=== PATIENT | male | born 1945 | race Caucasian/White ===

== ENCOUNTER 2017-04-29 17:46 | Emergency (ER) | payer MEDICARE, SELFPAY ==
[2017-04-29 17:47] VITALS: BP 147/71; PULSE 87; RESP 14; TEMP 36.8; O2SAT 97; BMI 32.5
--- NOTE | 2017-04-29 18:57 | EKG12_ITS ---
Test Reason : EDEMA Blood Pressure : / mmHG Vent. Rate : 084 BPM Atrial Rate : 084 BPM P-R Int : 194 ms QRS Dur : 086 ms QT Int : 378 ms P-R-T Axes : 034 -28 -11 degrees QTc Int : 446 ms Normal sinus rhythm Leftward axis Confirmed by EULALIA ACEVES, АННА ([id number]), associate entertainment editor ANDREAS PARKER ([id number]) on 05/02/2017 1:10:42 PM Referred By: AMPARO Confirmed By:АННА ESTEBAN MD
[2017-04-29 19:26] LABS: Absolute Lymphocyte Count 1.12 X10^3/ul (0.83-4.51); Absolute Neutrophil Count 5.4 X10^3/uL (2.0-7.7); Basophil# 0.02 X10^3/uL; Basophil% 0.3 % (0-1); Eosinophil# 0.21 X10^3/uL; Eosinophils% 2.8 % (0-5); Hematocrit 32.6 % (40-54); Hemoglobin 10.5 g/dl (13.0-16.5); Lymphocyte # 1.12 X10^3/ul (4.0); Lymphocyte % 15.1 % (19-41); Mean Corp Hgb Conc 32.2 g/gl (32-36); Mean Corpuscular Hgb 32.9 pg (27.0-32.0); Mean Corpuscular Volume 102.2 fL (80-94); Mean Platelet Vol. 8.5 fl (6.2-12.0); Monocyte# 0.67 X10^3/uL; Neutrophil # 5.38 X10^3/uL (2.7-7.7); Neutrophil % 72.5 % (47-70); POSITIVE COUNT NO; POSITIVE DIFFERENTIAL NO; POSITIVE MORPHOLOGY NO; Platelet Count 321 K/mm3 (150-450); RBC Distribution Width CV 14.9 % (11.6-14.6); RBC Distribution Width SD 54.9 fl (35.1-43.9); Red Blood Count 3.19 M/mm3 (4.6-6.2); White Blood Count 7.4 K/mm3 (4.4-11.0)
--- NOTE | 2017-04-29 19:40 | US_ITS ---
STUDY: VENOUS DOPPLER ULTRASOUND - BILATERAL LOWER EXTREMITIES REASON FOR EXAM: Male, 71 years old. Pain and swelling TECHNIQUE: Ultrasound evaluation of the deep vein system to include du-scale imaging and compression was performed. Du-scale imaging and Doppler sonographic evaluation, including duplex spectral analysis and qualitative color flow sonography, was performed. COMPARISON: None. FINDINGS: RIGHT LEG Common Femoral Vein: Normal compression, spontaneity and augmentation. Normal color Doppler. Common Femoral Vein/Greater Saphenous Junction: Normal compression, spontaneity and augmentation. Normal color Doppler. Deep Femoral Vein: Normal compression, spontaneity and augmentation. Normal color Doppler. Superficial Femoral Proximal: Normal compression, spontaneity and augmentation. Normal color Doppler. Superficial Femoral Middle: Normal compression, spontaneity and augmentation. Normal color Doppler. Superficial Femoral Distal: Normal compression, spontaneity and augmentation. Normal color Doppler. Popliteal Vein: Normal compression, spontaneity and augmentation. Normal color Doppler. Posterior Tibial Vein: Normal compression, spontaneity and augmentation. Normal color Doppler. Peroneal Vein: Normal compression, spontaneity and augmentation. Normal color Doppler. There is subcutaneous edema in the calf. LEFT LEG Common Femoral Vein: Normal compression, spontaneity and augmentation. Normal color Doppler. Common Femoral Vein/Greater Saphenous Junction: Normal compression, spontaneity and augmentation. Normal color Doppler. Deep Femoral Vein: Normal compression, spontaneity and augmentation. Normal color Doppler. Superficial Femoral Proximal: Normal compression, spontaneity and augmentation. Normal color Doppler. Superficial Femoral Middle: Normal compression, spontaneity and augmentation. Normal color Doppler. Superficial Femoral Distal: Normal compression, spontaneity and augmentation. Normal color Doppler. Popliteal Vein: Normal compression, spontaneity and augmentation. Normal color Doppler. Posterior Tibial Vein: Normal compression, spontaneity and augmentation. Normal color Doppler. Peroneal Vein: Normal compression, spontaneity and augmentation. Normal color Doppler. There is subcutaneous edema in the calf. US/Venous Duplex Imag/Ryan Extrem IMPRESSION: Normal venous Doppler ultrasound of the bilateral lower extremities. Electronically Signed: Huy Wills, at 21:23 EST Tel , Service support ,
[2017-04-29 19:43] LABS: AST(SGOT) 29 U/L (15-37); Alanine Aminotransfer ALT/SGPT 33 U/L (16-61); Albumin, Serum 2.9 g/dL (3.2-5.0); Alkaline Phosphatase 97 U/L (45-117); Anion Gap 8 (5-15); BUN 14 mg/dL (7-18); BUN/Creat Ratio 13.5 RATIO (10-20); Bilirubin, Direct 0.09 mg/dL (0.00-0.30); Chloride 107 mmol/L (98-107); Creatinine, Serum 1.04 mg/dL (0.70-1.30); EST Glomerular Filtration Rate 74 mL/min (>60); Est Glom Filt Rate - Afr Amer 90 mL/min (>60); Estimated Creatinine Clearance 63.26 ml/min; Globulin 3.7 g/dL (2.2-4.2); Glucose 100 mg/dL (74-106); Potassium 3.9 mmol/L (3.5-5.1); Protein, Total 6.6 g/dL (6.4-8.2); Sodium Level 140 mmol/L (136-145)
[2017-04-29 19:55] LABS: BNP,B-Type NATRIURETIC PEPTIDE 20.3 pg/mL (0-100)
[2017-04-29 20:00] VITALS: BP 154/80; PULSE 79; RESP 14; O2SAT 99
--- NOTE | 2017-04-29 21:20 | ED.VISSUMM ---
- ER Visit Summary Date of Service: 04/29/17 Chief Complaint: Leg swelling History of Present Illness: The patient is a [address] Ramirez and Dr. Cornell. He reports he has had swelling of his left leg and foot for approximately 2-3 years. Over the past 3 months he has noticed that his right leg has become swollen. Reports that this got much worse last night. States that he is having pain in his legs. Describes as an aching, throbbing pain that is 9 out of 10 with elevating his legs. He is pain-free otherwise. Patient reports he was placed on 2 weeks of Lasix approximately [address] Cornell. He is not on Lasix now. Of note the patient reports he had a laminectomy 10 days ago at [facility] by Dr. Vazquez. He was hospitalized for 3 days. Reports that he did have a PE 10-12 years ago. Is not on any anticoagulants. Physical Examination: Vitals: Stable. Afebrile. General: Well-nourished and well-developed. Head: Normocephalic atraumatic. Neck: Supple, no lymphadenopathy. No JVD. Nontender. Cardiovascular: Regular rate and rhythm. No murmurs. Respiratory: No respiratory distress. Clear to auscultation bilaterally. Abdominal: Soft, nontender, nondistended, normal bowel sounds. No guarding, rebound, or peritoneal signs. Back: Midline lumbar incision is clean, dry, and intact. There is no surrounding erythema. There is appropriate postoperative tenderness to palpation. Extremities: Nontender, 3+ pitting edema of his lower extremities bilaterally. Skin: Normal color, no rash. Neurologic: Alert and oriented ?3. Cranial nerves II through XII are intact. Normal strength and sensation. Psych: Normal affect. Test Results: EKG is sinus at [address] changes. CBC is remarkable for an H&H of 10.5 and 32.6, segmented neutrophils of 73, lymphocytes of 15. Chem-7 is more for calcium of 8.0. LFTs are marked for an albumin of 2.9. Troponin is normal. PT [employer] is 20.3. Bilateral lower extremity Dopplers is performed by ultrasound showed no DVT from the popliteal vein proximally. They were unable to visualize the calf veins due to the edema. Emergency Department Course and Treatment: The patient is resting comfortably. He has refused a dose of Lasix here. Treatment Plan: Patient has an appointment to see Dr. Martinez in 3 days. He is instructed to keep this appointment and likely will require repeat venous Dopplers to ensure that he does not have a clot in the calf itself. He will be placed on Lasix 40 mg p.o. daily with the dispose 7. Instructed to follow-up with Dr. Cornell for further evaluation and treatment of his leg swelling. I did discuss than the low albumin and the high-protein diet may be helpful. Return to the emergency department for any worsening symptoms. Disposition: To home in improved and stable condition. Impression: 1. Peripheral edema. 2. Hypoalbuminemia. 3. 10 days status post laminectomy. This note was generated with [email or web address] dictation software. It may contain incorrect words, spelling, and punctuation that were not noted in review of the chart prior to signing ED Disposition - Plan for ED Patient: Disposition: Home or Assisted Living Chief Complaint: Edema Instructions: ED Leg Swelling Bilateral Prescriptions: Furosemide [Lasix] 40 mg PO DAILY #7 tablet Referrals: Simon Willams MD [Primary Care Provider] - 5-7 Days
[2017-04-29 21:30] VITALS: BP 123/74; PULSE 83; RESP 19; O2SAT 98
== END 2017-04-29 21:41 | disposition home or self-care (01) ==
PROVIDERS: Emergency Provider Emergency Medicine; Family Provider Family Medicine; PCP Family Medicine
DX: R60.0 Localized edema (principal); E88.09 Other disorders of plasma-protein metabolism, not elsewhere classified; Z98.1 Arthrodesis status; I25.10 Atherosclerotic heart disease of native coronary artery without angina pectoris; I10 Essential (primary) hypertension; E78.00 Pure hypercholesterolemia, unspecified; Z86.718 Personal history of other venous thrombosis and embolism; Z86.711 Personal history of pulmonary embolism; Z79.82 Long term (current) use of aspirin; Z79.899 Other long term (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
CPT/HCPCS: 80048; 80076; 83880; 84484; 85025; 93005; 93970; 99283; A4216

== ENCOUNTER 2017-05-16 13:00 | Outpatient (RCR) | payer MEDICARE, SELFPAY ==
[2017-05-02 13:14] VITALS: BP 140/95; PULSE 91; RESP 16; TEMP 36.8; BMI 31.0
--- NOTE | 2017-05-02 14:03 | PCM.WC.HP ---
(1) GERD (gastroesophageal reflux disease) Status: Chronic Current Visit: No Code(s): K21.9 - Gastro-esophageal reflux disease without esophagitis (2) Swelling of lower extremity Status: Chronic Current Visit: Yes Code(s): M79.89 - Other specified soft tissue disorders (3) Edema of both legs Status: Chronic Current Visit: Yes Code(s): R60.0 - Localized edema (4) History of kidney stones Status: Chronic Current Visit: No Code(s): Z87.442 - Personal history of urinary calculi (5) Atherosclerosis of [place] coronary artery of [place] heart without angina pectoris Status: Chronic Current Visit: No Code(s): I25.10 - Atherosclerotic heart disease of [place] coronary artery without angina pectoris (6) Benign essential hypertension Status: Chronic Current Visit: No Code(s): I10 - Essential (primary) hypertension (7) History of benign prostatic hypertrophy Status: Chronic Current Visit: No Code(s): Z87.438 - Personal history of other diseases of male genital organs (8) History of hyperlipidemia Status: Chronic Current Visit: No Code(s): Z86.39 - Personal history of other endocrine, nutritional and metabolic disease (9) Rheumatoid arthritis Status: Chronic Current Visit: No Code(s): M06.9 - Rheumatoid arthritis, unspecified (10) Overweight Status: Chronic Current Visit: No Code(s): E66.3 - Overweight (11) Pre-op evaluation Status: Chronic Current Visit: No Code(s): Z01.818 - Encounter for other preprocedural examination History of Present Illness Date of Service: 05/02/17 Chief Complaint: Chronic swelling and edema in the lower extremities bilaterally History of Wound: This is a 71-year-old male with a long-standing history of swelling and edema in his lower extremities bilaterally. This has been ongoing for many years. Become more severe recently. The patient has a recent history of lumbar disc disease, and underwent lumbar laminectomy at the [facility] on April 19, 2017. According to the patient, his lower extremity swelling worse late in the day. He sleeps on a flat mattress at night, though often with the head of bed elevated due to gastroesophageal reflux disease. He sits for long periods of time ideally during daytime hours. He admits to being totally inactive. He denies a history of thrombophlebitis in the past. He is undergone no prior vein procedures in the past. His primary care physician recently placed him on Lasix for diuresis purposes, which has failed to have any favorable impact in his lower extremity swelling. Patient was evaluated in the emergency department at [facility] on April 29, 2017, due to his lower extremity swelling. At that time, a venous duplex examination was negative for deep vein thrombosis bilaterally. Laboratory results were as follows: White blood count 7.4, hemoglobin 10.5, medical 32.6, it was 321,000, sodium 140, potassium 3.9, chloride 107, BUN 14, creatinine 1.04, glucose 100, calcium 8.0, AST 29, ALT 33, alkaline phosphatase 97, total protein 6.6, albumin 2.9. Past Medical History Past Medical History: Chronic Problems (Last Updated 03/17/17 @ 09:45 by Willie Ramirez NP-C) GERD (gastroesophageal reflux disease) (Chronic) Swelling of lower extremity (Chronic) Edema of both legs (Chronic) History of kidney stones (Chronic) Overweight (Chronic) Pre-op evaluation (Chronic) Atherosclerosis of [place] coronary artery of [place] heart without angina pectoris (Chronic) Benign essential hypertension (Chronic) History of benign prostatic hypertrophy (Chronic) History of hyperlipidemia (Chronic) Rheumatoid arthritis (Chronic) Past Medical History: Patient has a history of gastroesophageal reflux disease. He also suffers from hypertension and hyperlipidemia. He has a history of coronary artery disease, having previously undergone coronary artery stenting of the right coronary artery. The patient's history is negative for myocardial infarction, congestive heart failure, cerebrovascular accident, diabetes mellitus, cancer, pulmonary disease, and thyroid disease. He has a history of kidney stones. Surgical History: - - Patient has previously undergone coronary artery stenting of the right coronary artery. He is also undergone appendectomy, cholecystectomy, and bilateral total knee replacement in the past. Allergies/Adverse Reactions: Allergies Antihistamines - Ethylenediamine Adverse Reaction (Verified 04/29/17 17:50) Other HYPERACTIVITY Home Medications: Ambulatory Orders Medication Instructions Recorded Atorvastatin Calcium [Lipitor] 40 mg PO QHS 12/18/12 Enalapril Maleate [Vasotec] 5 mg PO BID 12/18/12 Omeprazole [Prilosec] 20 mg PO DAILY 12/18/12 Tamsulosin HCl [Flomax] 0.4 mg PO DAILY 09/30/13 Nitroglycerin [Nitrostat] 0.4 mg SUBLINGUAL Q5M PRN 04/09/15 Pramipexole Di-HCl [Mirapex] 2 mg PO QHS 04/09/15 metoprolol succinate ER 25 mg 25 mg PO QDAY 03/17/17 tablet,extended release 24 hr folic acid 1 mg tablet 2 mg PO QDAY tab 03/18/17 methotrexate sodium 2.5 mg tablet 6 mg PO QWEEK tab 03/18/17 modafinil 100 mg tablet 200 mg PO QDAY tab 03/18/17 tramadol 50 mg tablet 100 mg PO Q6H PRN tab 03/18/17 Aspirin 325 mg PO DAILY 04/29/17 Furosemide [Lasix] 40 mg PO DAILY #7 tablet 04/29/17 - Family History Maternal Family History: Family History (Last Updated 03/17/17 @ 09:38 by Willie Ramirez NP-C) Father CAD (coronary artery disease) Mother CAD (coronary artery disease) Breast cancer Colon cancer Diabetes Brother CAD (coronary artery disease) CVA (cerebral vascular accident) Diabetes Social History: Patient lives with his , suffers from Alzheimer's disease, and is dependent upon him. 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 Denies use of alcohol and tobacco products. Lives: Spouse/ Significant Other Smoking Status: Never smoker Tobacco Use: Non-smoker Alcohol: None Drugs: None Review of Systems Constitutional: Denies: Chills, Fever, Weight Change Eyes: Denies: Pain, Vision Change HEENT: Denies: Difficulty Hearing, Difficulty Swallowing, Sinus Congestion Cardiovascular: Denies: Chest Pain, Palpitations Respiratory: Denies: Cough, Shortness of Breath Gastrointestinal: Denies: Diarrhea, Nausea, Vomiting Genitourinary: Denies: Dysuria, Hematuria Endocrine: Denies: Heat/ Cold Intolerance, Polydipsia, Polyuria Hematologic/ Lymphatic: Denies: Easy Bruising, Easy Bleeding - Physical Exam Vital Signs Temp Pulse Resp BP 98.2 F 91 16 140/95 H 05/02/17 13:14 05/02/17 13:14 05/02/17 13:14 05/02/17 13:14 General: Alert, Oriented x3, Cooperative, No apparent distress, Well developed, Well nourished HEENT: Atraumatic, PERRLA, EOMI, Normocephalic Oral: Moist Mucosa, No Gingival or Mucosal Lesions/ Ulcerations Neck: Supple, No JVD, Negative Carotid Bruits, Negative Hepatojugular Reflux, No Nodes, No Nuchal Rigidity, Trachea Midline Lungs: Clear to auscultation, Normal air movement, No rhonchi, No wheeze, No rales Cardiovascular: Regular rate, Regular Rhythm, Normal S1, Normal S2, No murmurs Abdomen: Bowel Sounds Present, Soft, Non Tender, Non-Distended Extremities: No clubbing, No cyanosis, No Calf Tenderness, - - Moderate bilateral lower extremity swelling and edema is noted. There is no sign of infection or cellulitis. There are no open wounds or ulcerations. Circumference measurements are documented elsewhere. Skin: No rashes, No breakdown Wound Measurements and Assessment WC - Nurse 1 - General Ulcer Measurement Start: 05/02/17 12:34 Freq: Status: Active Protocol: Activity Type Activity Date Activity User E-Sign Co-Sign Detail Recorded Client Recorded Date Recorded By Document 05/02/17 13:14 [facility] [id number] 05/02/17 13:32 [facility] 05/02/17 13:14 Wound Center Nurse 1 [Ulcer Assessment Protocol: WC.WD.LOC] #1- BLE EDEMA -Combined with other wound No [Edema Assessment] -Lower Limb Edema Present Yes -Right Calf (cm) 46 -Right Ankle (cm) 28.8 -Left Calf (cm) 45.7 -Left Ankle (cm) 27.9 WC - Nurse 2 - General Ulcer CM Notes Start: 05/02/17 12:34 Freq: Status: Active Protocol: Activity Type Activity Date Activity User E-Sign Co-Sign Detail Recorded Client Recorded Date Recorded By Document 05/02/17 13:49 DV [id number] 05/02/17 13:53 DV 05/02/17 13:49 Wound Center Nurse 2 [Procedure/Treatment] #1- BLE EDEMA -Time 13:50 -Correct Patient Yes -Correct Side, Site, Position Yes -Procedure Performed No [See Physician Procedure note for Specifics] Musculoskeletal: No Muscle Wasting Neurological: Cranial nerves II-XII grossly intact, Neuro grossly intact Psych/Mental Status: Normal Affect, Appropriate, Alert and oriented to time, place, person, mood and affect Debridement Note Post-Debridement Measurements/Treatment WC - Nurse 2 - General Ulcer CM Notes Start: 05/02/17 12:34 Freq: Status: Active Protocol: Activity Type Activity Date Activity User E-Sign Co-Sign Detail Recorded Client Recorded Date Recorded By Document 05/02/17 13:49 DV [id number] 05/02/17 13:53 DV 05/02/17 13:49 Wound Center Nurse 2 #1- BLE EDEMA -Time 13:50 -Correct Patient Yes -Correct Side, Site, Position Yes -Procedure Performed No No debridement was completed today Assessment/Plan Active Problems (Last Updated 03/17/17 @ 09:45 by Willie Ramirez, ARDHA-C) Swelling of lower extremity (Chronic) Edema of both legs (Chronic) Assessment: This is a 71-year-old male who is relatively inactive. His activity has been adversely affected by aging, and symptoms related to lumbar disc disease. He has recently undergone lumbar laminectomy. His activity has been curtailed recently, concomitant to increased swelling and edema in his lower extremities. He sleeps in a somewhat upright position, with head of bed elevated, due to gastroesophageal reflux disease. He denies a history of thrombophlebitis. It appears as though the patient's lifestyle and habits account for his swelling and edema in the lower extremities. Plan: The patient and his son, who is at the bedside, have been counseled in the appropriate lifestyle measures to be implemented relative to the lower extremity swelling and edema. He has been advised to elevate his lower extremities as much as possible, even during daytime hours. Elevation is to be accomplished to heart level, or higher. He is to avoid idle standing and sitting. Activity has been encouraged, such as walking, biking, swimming, jogging, etc. The benefits of activity have been thoroughly explained, including the recruitment of calf and foot muscle pumps. We are to obtain an ankle-brachial index bilaterally, to determine the degree of compression which would be appropriate to implement in the lower extremities on a daily basis. It is anticipated that we will start with compression wraps, such as SurePress or 3M 2 layer compression wraps, and will ultimately transition to the use of graduated compression stockings of at least 20-30 mmHg compression. Control of patient's weight has also been recommended. Patient will return weekly and his progress will be documented serially. Patient stands 5 feet 9 inches tall. He weighs 210 pounds. His BMI is 31, which places him in the overweight category. Weight loss has been recommended, and the patient has been advised to collaborate with his primary care physician in this regard. The patient is not a smoker. Influenza vaccine was not administered today. The left ankle pressure was unobtainable due to the noncompressibility of the vasculature. The right ankle-brachial index was 1.05. Because of the patient's recent lumbar surgery, and limitations in flexibility, we will start using 3M 2 layer compression wraps which will be changed twice weekly.
--- NOTE | 2017-05-02 14:14 | HP.PCM_ITS ---
(1) GERD (gastroesophageal reflux disease) Status: Chronic Current Visit: No Code(s): K21.9 - Gastro-esophageal reflux disease without esophagitis (2) Swelling of lower extremity Status: Chronic Current Visit: Yes Code(s): M79.89 - Other specified soft tissue disorders (3) Edema of both legs Status: Chronic Current Visit: Yes Code(s): R60.0 - Localized edema (4) History of kidney stones Status: Chronic Current Visit: No Code(s): Z87.442 - Personal history of urinary calculi (5) Atherosclerosis of [place] coronary artery of [place] heart without angina pectoris Status: Chronic Current Visit: No Code(s): I25.10 - Atherosclerotic heart disease of [place] coronary artery without angina pectoris (6) Benign essential hypertension Status: Chronic Current Visit: No Code(s): I10 - Essential (primary) hypertension (7) History of benign prostatic hypertrophy Status: Chronic Current Visit: No Code(s): Z87.438 - Personal history of other diseases of male genital organs (8) History of hyperlipidemia Status: Chronic Current Visit: No Code(s): Z86.39 - Personal history of other endocrine, nutritional and metabolic disease (9) Rheumatoid arthritis Status: Chronic Current Visit: No Code(s): M06.9 - Rheumatoid arthritis, unspecified (10) Overweight Status: Chronic Current Visit: No Code(s): E66.3 - Overweight (11) Pre-op evaluation Status: Chronic Current Visit: No Code(s): Z01.818 - Encounter for other preprocedural examination History of Present Illness Date of Service: 05/02/17 Chief Complaint: Chronic swelling and edema in the lower extremities bilaterally History of Wound: This is a 71-year-old male with a long-standing history of swelling and edema in his lower extremities bilaterally. This has been ongoing for many years. Become more severe recently. The patient has a recent history of lumbar disc disease, and underwent lumbar laminectomy at the [facility] on April 19, 2017. According to the patient, his lower extremity swelling worse late in the day. He sleeps on a flat mattress at night, though often with the head of bed elevated due to gastroesophageal reflux disease. He sits for long periods of time ideally during daytime hours. He admits to being totally inactive. He denies a history of thrombophlebitis in the past. He is undergone no prior vein procedures in the past. His primary care physician recently placed him on Lasix for diuresis purposes, which has failed to have any favorable impact in his lower extremity swelling. Patient was evaluated in the emergency department at [facility] on April 29, 2017, due to his lower extremity swelling. At that time, a venous duplex examination was negative for deep vein thrombosis bilaterally. Laboratory results were as follows: White blood count 7.4, hemoglobin 10.5, medical 32.6, it was 321,000, sodium 140, potassium 3.9, chloride 107, BUN 14, creatinine 1.04, glucose 100, calcium 8.0, AST 29, ALT 33, alkaline phosphatase 97, total protein 6.6, albumin 2.9. Past Medical History Past Medical History: Chronic Problems (Last Updated 03/17/17 @ 09:45 by Willie Ramirez NP-C) GERD (gastroesophageal reflux disease) (Chronic) Swelling of lower extremity (Chronic) Edema of both legs (Chronic) History of kidney stones (Chronic) Overweight (Chronic) Pre-op evaluation (Chronic) Atherosclerosis of [place] coronary artery of [place] heart without angina pectoris (Chronic) Benign essential hypertension (Chronic) History of benign prostatic hypertrophy (Chronic) History of hyperlipidemia (Chronic) Rheumatoid arthritis (Chronic) Past Medical History: Patient has a history of gastroesophageal reflux disease. He also suffers from hypertension and hyperlipidemia. He has a history of coronary artery disease, having previously undergone coronary artery stenting of the right coronary artery. The patient's history is negative for myocardial infarction, congestive heart failure, cerebrovascular accident, diabetes mellitus, cancer, pulmonary disease, and thyroid disease. He has a history of kidney stones. Surgical History: - - Patient has previously undergone coronary artery stenting of the right coronary artery. He is also undergone appendectomy, cholecystectomy, and bilateral total knee replacement in the past. Allergies/Adverse Reactions: Allergies Antihistamines - Ethylenediamine Adverse Reaction (Verified 04/29/17 17:50) Other HYPERACTIVITY Home Medications: Ambulatory Orders Medication Instructions Recorded Atorvastatin Calcium [Lipitor] 40 mg PO QHS 12/18/12 Enalapril Maleate [Vasotec] 5 mg PO BID 12/18/12 Omeprazole [Prilosec] 20 mg PO DAILY 12/18/12 Tamsulosin HCl [Flomax] 0.4 mg PO DAILY 09/30/13 Nitroglycerin [Nitrostat] 0.4 mg SUBLINGUAL Q5M PRN 04/09/15 Pramipexole Di-HCl [Mirapex] 2 mg PO QHS 04/09/15 metoprolol succinate ER 25 mg 25 mg PO QDAY 03/17/17 tablet,extended release 24 hr folic acid 1 mg tablet 2 mg PO QDAY tab 03/18/17 methotrexate sodium 2.5 mg tablet 6 mg PO QWEEK tab 03/18/17 modafinil 100 mg tablet 200 mg PO QDAY tab 03/18/17 tramadol 50 mg tablet 100 mg PO Q6H PRN tab 03/18/17 Aspirin 325 mg PO DAILY 04/29/17 Furosemide [Lasix] 40 mg PO DAILY #7 tablet 04/29/17 - Family History Maternal Family History: Family History (Last Updated 03/17/17 @ 09:38 by Wlilie Ramirez NP-C) Father CAD (coronary artery disease) Mother CAD (coronary artery disease) Breast cancer Colon cancer Diabetes Brother CAD (coronary artery disease) CVA (cerebral vascular accident) Diabetes Social History: Patient lives with his , suffers from Alzheimer's disease, and is dependent upon him. 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 Denies use of alcohol and tobacco products. Lives: Spouse/ Significant Other Smoking Status: Never smoker Tobacco Use: Non-smoker Alcohol: None Drugs: None Review of Systems Constitutional: Denies: Chills, Fever, Weight Change Eyes: Denies: Pain, Vision Change HEENT: Denies: Difficulty Hearing, Difficulty Swallowing, Sinus Congestion Cardiovascular: Denies: Chest Pain, Palpitations Respiratory: Denies: Cough, Shortness of Breath Gastrointestinal: Denies: Diarrhea, Nausea, Vomiting Genitourinary: Denies: Dysuria, Hematuria Endocrine: Denies: Heat/ Cold Intolerance, Polydipsia, Polyuria Hematologic/ Lymphatic: Denies: Easy Bruising, Easy Bleeding - Physical Exam Vital Signs Temp Pulse Resp BP 98.2 F 91 16 140/95 H 05/02/17 13:14 05/02/17 13:14 05/02/17 13:14 05/02/17 13:14 General: Alert, Oriented x3, Cooperative, No apparent distress, Well developed, Well nourished HEENT: Atraumatic, PERRLA, EOMI, Normocephalic Oral: Moist Mucosa, No Gingival or Mucosal Lesions/ Ulcerations Neck: Supple, No JVD, Negative Carotid Bruits, Negative Hepatojugular Reflux, No Nodes, No Nuchal Rigidity, Trachea Midline Lungs: Clear to auscultation, Normal air movement, No rhonchi, No wheeze, No rales Cardiovascular: Regular rate, Regular Rhythm, Normal S1, Normal S2, No murmurs Abdomen: Bowel Sounds Present, Soft, Non Tender, Non-Distended Extremities: No clubbing, No cyanosis, No Calf Tenderness, - - Moderate bilateral lower extremity swelling and edema is noted. There is no sign of infection or cellulitis. There are no open wounds or ulcerations. Circumference measurements are documented elsewhere. Skin: No rashes, No breakdown Wound Measurements and Assessment WC - Nurse 1 - General Ulcer Measurement Start: 05/02/17 12:34 Freq: Status: Active Protocol: Activity Type Activity Date Activity User E-Sign Co-Sign Detail Recorded Client Recorded Date Recorded By Document 05/02/17 13:14 [facility] [id number] 05/02/17 13:32 [facility] 05/02/17 13:14 Wound Center Nurse 1 [Ulcer Assessment Protocol: WC.WD.LOC] #1- BLE EDEMA -Combined with other wound No [Edema Assessment] -Lower Limb Edema Present Yes -Right Calf (cm) 46 -Right Ankle (cm) 28.8 -Left Calf (cm) 45.7 -Left Ankle (cm) 27.9 WC - Nurse 2 - General Ulcer CM Notes Start: 05/02/17 12:34 Freq: Status: Active Protocol: Activity Type Activity Date Activity User E-Sign Co-Sign Detail Recorded Client Recorded Date Recorded By Document 05/02/17 13:49 DV [id number] 05/02/17 13:53 DV 05/02/17 13:49 Wound Center Nurse 2 [Procedure/Treatment] #1- BLE EDEMA -Time 13:50 -Correct Patient Yes -Correct Side, Site, Position Yes -Procedure Performed No [See Physician Procedure note for Specifics] Musculoskeletal: No Muscle Wasting Neurological: Cranial nerves II-XII grossly intact, Neuro grossly intact Psych/Mental Status: Normal Affect, Appropriate, Alert and oriented to time, place, person, mood and affect Debridement Note Post-Debridement Measurements/Treatment WC - Nurse 2 - General Ulcer CM Notes Start: 05/02/17 12:34 Freq: Status: Active Protocol: Activity Type Activity Date Activity User E-Sign Co-Sign Detail Recorded Client Recorded Date Recorded By Document 05/02/17 13:49 DV [id number] 05/02/17 13:53 DV 05/02/17 13:49 Wound Center Nurse 2 #1- BLE EDEMA -Time 13:50 -Correct Patient Yes -Correct Side, Site, Position Yes -Procedure Performed No No debridement was completed today Assessment/Plan Active Problems (Last Updated 03/17/17 @ 09:45 by Willie Ramirez, RADHA-C) Swelling of lower extremity (Chronic) Edema of both legs (Chronic) Assessment: This is a 71-year-old male who is relatively inactive. His activity has been adversely affected by aging, and symptoms related to lumbar disc disease. He has recently undergone lumbar laminectomy. His activity has been curtailed recently, concomitant to increased swelling and edema in his lower extremities. He sleeps in a somewhat upright position, with head of bed elevated, due to gastroesophageal reflux disease. He denies a history of thrombophlebitis. It appears as though the patient's lifestyle and habits account for his swelling and edema in the lower extremities. Plan: The patient and his son, who is at the bedside, have been counseled in the appropriate lifestyle measures to be implemented relative to the lower extremity swelling and edema. He has been advised to elevate his lower extremities as much as possible, even during daytime hours. Elevation is to be accomplished to heart level, or higher. He is to avoid idle standing and sitting. Activity has been encouraged, such as walking, biking, swimming, jogging, etc. The benefits of activity have been thoroughly explained, including the recruitment of calf and foot muscle pumps. We are to obtain an ankle-brachial index bilaterally, to determine the degree of compression which would be appropriate to implement in the lower extremities on a daily basis. It is anticipated that we will start with compression wraps, such as SurePress or 3M 2 layer compression wraps, and will ultimately transition to the use of graduated compression stockings of at least 20-30 mmHg compression. Control of patient's weight has also been recommended. Patient will return weekly and his progress will be documented serially. Patient stands 5 feet 9 inches tall. He weighs 210 pounds. His BMI is 31, which places him in the overweight category. Weight loss has been recommended, and the patient has been advised to collaborate with his primary care physician in this regard. The patient is not a smoker. Influenza vaccine was not administered today. The left ankle pressure was unobtainable due to the noncompressibility of the vasculature. The right ankle-brachial index was 1.05. Because of the patient's recent lumbar surgery, and limitations in flexibility, we will start using 3M 2 layer compression wraps which will be changed twice weekly.
--- NOTE | 2017-05-02 14:23 | PCM.WC.HP ---
(1) GERD (gastroesophageal reflux disease) Status: Chronic Current Visit: No Code(s): K21.9 - Gastro-esophageal reflux disease without esophagitis (2) Swelling of lower extremity Status: Chronic Current Visit: Yes Code(s): M79.89 - Other specified soft tissue disorders (3) Edema of both legs Status: Chronic Current Visit: Yes Code(s): R60.0 - Localized edema (4) History of kidney stones Status: Chronic Current Visit: No Code(s): Z87.442 - Personal history of urinary calculi (5) Atherosclerosis of [place] coronary artery of [place] heart without angina pectoris Status: Chronic Current Visit: No Code(s): I25.10 - Atherosclerotic heart disease of [place] coronary artery without angina pectoris (6) Benign essential hypertension Status: Chronic Current Visit: No Code(s): I10 - Essential (primary) hypertension (7) History of benign prostatic hypertrophy Status: Chronic Current Visit: No Code(s): Z87.438 - Personal history of other diseases of male genital organs (8) History of hyperlipidemia Status: Chronic Current Visit: No Code(s): Z86.39 - Personal history of other endocrine, nutritional and metabolic disease (9) Rheumatoid arthritis Status: Chronic Current Visit: No Code(s): M06.9 - Rheumatoid arthritis, unspecified (10) Overweight Status: Chronic Current Visit: No Code(s): E66.3 - Overweight (11) Pre-op evaluation Status: Chronic Current Visit: No Code(s): Z01.818 - Encounter for other preprocedural examination History of Present Illness Date of Service: 05/02/17 Chief Complaint: Chronic swelling and edema in the lower extremities bilaterally History of Wound: This is a 71-year-old male with a long-standing history of swelling and edema in his lower extremities bilaterally. This has been ongoing for many years. Become more severe recently. The patient has a recent history of lumbar disc disease, and underwent lumbar laminectomy at the [facility] on April 19, 2017. According to the patient, his lower extremity swelling worse late in the day. He sleeps on a flat mattress at night, though often with the head of bed elevated due to gastroesophageal reflux disease. He sits for long periods of time ideally during daytime hours. He admits to being totally inactive. He denies a history of thrombophlebitis in the past. He is undergone no prior vein procedures in the past. His primary care physician recently placed him on Lasix for diuresis purposes, which has failed to have any favorable impact in his lower extremity swelling. Patient was evaluated in the emergency department at [facility] on April 29, 2017, due to his lower extremity swelling. At that time, a venous duplex examination was negative for deep vein thrombosis bilaterally. Laboratory results were as follows: White blood count 7.4, hemoglobin 10.5, medical 32.6, it was 321,000, sodium 140, potassium 3.9, chloride 107, BUN 14, creatinine 1.04, glucose 100, calcium 8.0, AST 29, ALT 33, alkaline phosphatase 97, total protein 6.6, albumin 2.9. Past Medical History Past Medical History: Chronic Problems (Last Updated 03/17/17 @ 09:45 by Willie Ramirez NP-C) GERD (gastroesophageal reflux disease) (Chronic) Swelling of lower extremity (Chronic) Edema of both legs (Chronic) History of kidney stones (Chronic) Overweight (Chronic) Pre-op evaluation (Chronic) Atherosclerosis of [place] coronary artery of [place] heart without angina pectoris (Chronic) Benign essential hypertension (Chronic) History of benign prostatic hypertrophy (Chronic) History of hyperlipidemia (Chronic) Rheumatoid arthritis (Chronic) Surgical History: - - Patient has previously undergone coronary artery stenting of the right coronary artery. He is also undergone appendectomy, cholecystectomy, and bilateral total knee replacement in the past. Allergies/Adverse Reactions: Allergies Antihistamines - Ethylenediamine Adverse Reaction (Verified 04/29/17 17:50) Other HYPERACTIVITY Home Medications: Ambulatory Orders Medication Instructions Recorded Atorvastatin Calcium [Lipitor] 40 mg PO QHS 12/18/12 Enalapril Maleate [Vasotec] 5 mg PO BID 12/18/12 Omeprazole [Prilosec] 20 mg PO DAILY 12/18/12 Tamsulosin HCl [Flomax] 0.4 mg PO DAILY 12/18/12 Nitroglycerin [Nitrostat] 0.4 mg SUBLINGUAL Q5M PRN 04/09/15 Pramipexole Di-HCl [Mirapex] 2 mg PO QHS 04/09/15 metoprolol succinate ER 25 mg 25 mg PO QDAY 03/17/17 tablet,extended release 24 hr folic acid 1 mg tablet 2 mg PO QDAY tab 03/18/17 methotrexate sodium 2.5 mg tablet 6 mg PO QWEEK tab 03/18/17 modafinil 100 mg tablet 200 mg PO QDAY tab 03/18/17 tramadol 50 mg tablet 100 mg PO Q6H PRN tab 03/18/17 Aspirin 325 mg PO DAILY 04/29/17 Furosemide [Lasix] 40 mg PO DAILY #7 tablet 04/29/17 - Family History Maternal Family History: Family History (Last Updated 03/17/17 @ 09:38 by MARYCHUY Faria) Father CAD (coronary artery disease) Mother CAD (coronary artery disease) Breast cancer Colon cancer Diabetes Brother CAD (coronary artery disease) CVA (cerebral vascular accident) Diabetes Lives: Spouse/ Significant Other Smoking Status: Never smoker Tobacco Use: Non-smoker Alcohol: None Drugs: None - Physical Exam Vital Signs Temp Pulse Resp BP 98.2 F 91 16 140/95 H 05/02/17 13:14 05/02/17 13:14 05/02/17 13:14 05/02/17 13:14 Wound Measurements and Assessment - Nurse 1 - General Ulcer Measurement Start: 05/02/17 12:34 Freq: Status: Active Protocol: Activity Type Activity Date Activity User E-Sign Co-Sign Detail Recorded Client Recorded Date Recorded By Document 05/02/17 13:14 BM [id number] 05/02/17 13:32 [facility] 05/02/17 13:14 Wound Center Nurse 1 [Ulcer Assessment Protocol: WC.WD.LOC] #1- BLE EDEMA -Combined with other wound No [Edema Assessment] -Lower Limb Edema Present Yes -Right Calf (cm) 46 -Right Ankle (cm) 28.8 -Left Calf (cm) 45.7 -Left Ankle (cm) 27.9 - Nurse 2 - General Ulcer CM Notes Start: 05/02/17 12:34 Freq: Status: Active Protocol: Activity Type Activity Date Activity User E-Sign Co-Sign Detail Recorded Client Recorded Date Recorded By Document 05/02/17 13:49 DV [id number] 05/02/17 13:53 DV 05/02/17 13:49 Wound Center Nurse 2 [Procedure/Treatment] #1- BLE EDEMA -Time 13:50 -Correct Patient Yes -Correct Side, Site, Position Yes -Procedure Performed No [See Physician Procedure note for Specifics] Debridement Note Post-Debridement Measurements/Treatment WC - Nurse 2 - General Ulcer CM Notes Start: 05/02/17 12:34 Freq: Status: Active Protocol: Activity Type Activity Date Activity User E-Sign Co-Sign Detail Recorded Client Recorded Date Recorded By Document 05/02/17 13:49 DV [id number] 05/02/17 13:53 DV 05/02/17 13:49 Wound Center Nurse 2 #1- BLE EDEMA -Time 13:50 -Correct Patient Yes -Correct Side, Site, Position Yes -Procedure Performed No Assessment/Plan Active Problems (Last Updated 03/17/17 @ 09:45 by Willie Ramirez, RADHA-C) Swelling of lower extremity (Chronic) Edema of both legs (Chronic) Assessment: This is a 71-year-old male who is relatively inactive. His activity has been adversely affected by aging, and symptoms related to lumbar disc disease. He has recently undergone lumbar laminectomy. His activity has been curtailed recently, concomitant to increased swelling and edema in his lower extremities. He sleeps in a somewhat upright position, with head of bed elevated, due to gastroesophageal reflux disease. He denies a history of thrombophlebitis. It appears as though the patient's lifestyle and habits account for his swelling and edema in the lower extremities. Plan: The patient and his son, who is at the bedside, have been counseled in the appropriate lifestyle measures to be implemented relative to the lower extremity swelling and edema. He has been advised to elevate his lower extremities as much as possible, even during daytime hours. Elevation is to be accomplished to heart level, or higher. He is to avoid idle standing and sitting. Activity has been encouraged, such as walking, biking, swimming, jogging, etc. The benefits of activity have been thoroughly explained, including the recruitment of calf and foot muscle pumps. We are to obtain an ankle-brachial index bilaterally, to determine the degree of compression which would be appropriate to implement in the lower extremities on a daily basis. It is anticipated that we will start with compression wraps, such as SurePress or 3M 2 layer compression wraps, and will ultimately transition to the use of graduated compression stockings of at least 20-30 mmHg compression. Control of patient's weight has also been recommended. Patient will return weekly and his progress will be documented serially. Patient stands 5 feet 9 inches tall. He weighs 210 pounds. His BMI is 31, which places him in the overweight category. Weight loss has been recommended, and the patient has been advised to collaborate with his primary care physician in this regard. The patient is not a smoker. Influenza vaccine was not administered today. The left ankle pressure was unobtainable due to the noncompressibility of the vasculature. The right ankle-brachial index was 1.05. Because of the patient's recent lumbar surgery, and limitations in flexibility, we will start using 3M 2 layer compression wraps which will be changed twice weekly. Will obtain a venous duplex examination to assess patency and competence in the deep and superficial venous systems bilaterally.
--- NOTE | 2017-05-05 13:05 | VDLE_ITS ---
Reason For Study: swelling, edema RIGHT LEFT CFV is compressible, spontaneous, phasic, CFV is compressible, spontaneous, phasic, competent and demonstrates normal competent, and demonstrates normal augmentation. augmentation. FV is compressible, spontaneous, phasic, FV is compressible, spontaneous, phasic, competent and demonstrates normal competent and demonstrates normal augmentation. augmentation. POP V is compressible, spontaneous, phasic, POP V is compressible, spontaneous, phasic, competent and demonstrates normal competent and demonstrates normal augmentation. augmentation. T/P Trunk is compressible. T/P Trunk is compressible. PTV is compressible. PTV is compressible. RT PerV is compressible. LT PerV is compressible. S-F Junction is incompetent for greater S-F Junction is incompetent for greater than .5 seconds. than .5 seconds. GSV is incompetent throughout for greater GSV is incompetent throughout for greater than .5 seconds. GSV measures .370 x .407 than .5 seconds. GSV measures .289 x .318 cm. cm. ASV at the knee is incompetent for greater ASV at the knee is incompetent for greater than .5 seconds. ASV measures .308 x .316 than .5 seconds. ASV measures .229 x .224 cm. cm. SSV is competent. SSV is competent. Procedure Exam performed in department. The exam was diagnostic. Interpretation Summary Deep veins of the lower extremities are bilaterally patent and compressible segmentally. There is no evidence of deep vein thrombosis on either side. Valvular competence appears intact within the proximal deep venous systems bilaterally. The greater saphenous veins appear bilaterally patent and compressible segmentally. Sapheno-femoral junctions are bilaterally incompetent . Segmental valvular incompetence is noted within the greater saphenous veins bilaterally. Small saphenous veins are patent and competent bilaterally. An incompetent accessory saphenous vein is identified at knee level in the lower extremities bilaterally. Ordering Physician: Matthew Martinez Performed By: Tim Pike RVT
[2017-05-05 14:09] VITALS: BP 150/80; PULSE 85; RESP 18; TEMP 36.9; BMI 31.0
[2017-05-09 12:24] VITALS: BP 144/79; PULSE 90; RESP 16; TEMP 36.5; BMI 31.0
--- NOTE | 2017-05-09 13:10 | PCM.WC.HP ---
(1) GERD (gastroesophageal reflux disease) Status: Chronic Current Visit: No Code(s): K21.9 - Gastro-esophageal reflux disease without esophagitis (2) Swelling of lower extremity Status: Chronic Current Visit: Yes Code(s): M79.89 - Other specified soft tissue disorders (3) Edema of both legs Status: Chronic Current Visit: Yes Code(s): R60.0 - Localized edema (4) History of kidney stones Status: Chronic Current Visit: No Code(s): Z87.442 - Personal history of urinary calculi (5) Atherosclerosis of [place] coronary artery of [place] heart without angina pectoris Status: Chronic Current Visit: No Code(s): I25.10 - Atherosclerotic heart disease of [place] coronary artery without angina pectoris (6) Benign essential hypertension Status: Chronic Current Visit: No Code(s): I10 - Essential (primary) hypertension (7) History of benign prostatic hypertrophy Status: Chronic Current Visit: No Code(s): Z87.438 - Personal history of other diseases of male genital organs (8) History of hyperlipidemia Status: Chronic Current Visit: No Code(s): Z86.39 - Personal history of other endocrine, nutritional and metabolic disease (9) Rheumatoid arthritis Status: Chronic Current Visit: No Code(s): M06.9 - Rheumatoid arthritis, unspecified (10) Overweight Status: Chronic Current Visit: No Code(s): E66.3 - Overweight (11) Pre-op evaluation Status: Chronic Current Visit: No Code(s): Z01.818 - Encounter for other preprocedural examination History of Present Illness Date of Service: 05/09/17 Chief Complaint: Chronic swelling and edema in the lower extremities bilaterally History of Wound: This is a 71-year-old male with a long-standing history of swelling and edema in his lower extremities bilaterally. This has been ongoing for many years. Become more severe recently. The patient has a recent history of lumbar disc disease, and underwent lumbar laminectomy at the [facility] on April 19, 2017. According to the patient, his lower extremity swelling worse late in the day. He sleeps on a flat mattress at night, though often with the head of bed elevated due to gastroesophageal reflux disease. He sits for long periods of time ideally during daytime hours. He admits to being totally inactive. He denies a history of thrombophlebitis in the past. He is undergone no prior vein procedures in the past. His primary care physician recently placed him on Lasix for diuresis purposes, which has failed to have any favorable impact in his lower extremity swelling. Patient was evaluated in the emergency department at [facility] on April 29, 2017, due to his lower extremity swelling. At that time, a venous duplex examination was negative for deep vein thrombosis bilaterally. Laboratory results were as follows: White blood count 7.4, hemoglobin 10.5, medical 32.6, it was 321,000, sodium 140, potassium 3.9, chloride 107, BUN 14, creatinine 1.04, glucose 100, calcium 8.0, AST 29, ALT 33, alkaline phosphatase 97, total protein 6.6, albumin 2.9. Since patient's initial visit, there has been significant improvement. We have implemented the use of compression to the lower extremities by means of 3M 2 layer compression wrap, change twice weekly. Patient has also been modifying his daily routine, elevating his legs even during daytime hours. He has also been advised to avoid prolonged vital sitting. Past Medical History Past Medical History: Chronic Problems (Last Updated 03/17/17 @ 09:45 by Willie Ramirez NP-C) GERD (gastroesophageal reflux disease) (Chronic) Swelling of lower extremity (Chronic) Edema of both legs (Chronic) History of kidney stones (Chronic) Overweight (Chronic) Pre-op evaluation (Chronic) Atherosclerosis of [place] coronary artery of [place] heart without angina pectoris (Chronic) Benign essential hypertension (Chronic) History of benign prostatic hypertrophy (Chronic) History of hyperlipidemia (Chronic) Rheumatoid arthritis (Chronic) Surgical History: - - Patient has previously undergone coronary artery stenting of the right coronary artery. He is also undergone appendectomy, cholecystectomy, and bilateral total knee replacement in the past. Allergies/Adverse Reactions: Allergies Antihistamines - Ethylenediamine Adverse Reaction (Verified 04/29/17 17:50) Other HYPERACTIVITY Home Medications: Ambulatory Orders Medication Instructions Recorded Atorvastatin Calcium [Lipitor] 40 mg PO QHS 12/18/12 Enalapril Maleate [Vasotec] 5 mg PO BID 12/18/12 Omeprazole [Prilosec] 20 mg PO DAILY 12/18/12 Tamsulosin HCl [Flomax] 0.4 mg PO DAILY 12/18/12 Nitroglycerin [Nitrostat] 0.4 mg SUBLINGUAL Q5M PRN 04/09/15 Pramipexole Di-HCl [Mirapex] 2 mg PO QHS 04/09/15 metoprolol succinate ER 25 mg 25 mg PO QDAY 03/17/17 tablet,extended release 24 hr folic acid 1 mg tablet 2 mg PO QDAY tab 03/18/17 methotrexate sodium 2.5 mg tablet 6 mg PO QWEEK tab 03/18/17 modafinil 100 mg tablet 200 mg PO QDAY tab 03/18/17 tramadol 50 mg tablet 100 mg PO Q6H PRN tab 03/18/17 Aspirin 325 mg PO DAILY 04/29/17 Furosemide [Lasix] 40 mg PO DAILY #7 tablet 04/29/17 - Family History Maternal Family History: Family History (Last Updated 03/17/17 @ 09:38 by Willie Ramirez STEM CRUSHER-C) Father CAD (coronary artery disease) Mother CAD (coronary artery disease) Breast cancer Colon cancer Diabetes Brother CAD (coronary artery disease) CVA (cerebral vascular accident) Diabetes Lives: Spouse/ Significant Other Smoking Status: Never smoker Tobacco Use: Non-smoker Alcohol: None Drugs: None Review of Systems Constitutional: Denies: Chills, Fever, Weight Change Eyes: Denies: Pain, Vision Change HEENT: Denies: Difficulty Hearing, Difficulty Swallowing, Sinus Congestion Cardiovascular: Denies: Chest Pain, Palpitations Respiratory: Denies: Cough, Shortness of Breath Gastrointestinal: Denies: Diarrhea, Nausea, Vomiting Genitourinary: Denies: Dysuria, Hematuria Endocrine: Denies: Heat/ Cold Intolerance, Polydipsia, Polyuria Hematologic/ Lymphatic: Denies: Easy Bruising, Easy Bleeding - Physical Exam Vital Signs Temp Pulse Resp BP 97.7 F L 90 16 144/79 H 05/09/17 12:24 05/09/17 12:24 05/09/17 12:24 05/09/17 12:24 General: Alert, Oriented x3, Cooperative, No apparent distress, Well developed, Well nourished HEENT: Atraumatic, PERRLA, EOMI, Normocephalic Oral: Moist Mucosa Neck: No JVD Lungs: Normal air movement Abdomen: Non-Distended Extremities: No clubbing, No cyanosis, No Calf Tenderness, - - The swelling and edema in the patient's lower extremities is much improved. Circumference measurements are documented elsewhere, and are less than previously noted. There are no significant skin changes in the lower extremities. There are no open wounds or ulcerations. There is no sign of infection or cellulitis. Skin: No rashes, No breakdown Wound Measurements and Assessment WC - Nurse 1 - General Ulcer Measurement Start: 05/02/17 12:34 Freq: Status: Active Protocol: Activity Type Activity Date Activity User E-Sign Co-Sign Detail Recorded Client Recorded Date Recorded By Document 05/09/17 12:24 [facility] [id number] 05/09/17 12:38 [facility] 05/09/17 12:24 Wound Center Nurse 1 [Edema Assessment] -Lower Limb Edema Present Yes -Right Calf (cm) 38.5 -Right Ankle (cm) 24.7 -Left Calf (cm) 38.9 -Left Ankle (cm) 24.9 WC - Nurse 2 - General Ulcer CM Notes Start: 05/02/17 12:34 Freq: Status: Active Protocol: Activity Type Activity Date Activity User E-Sign Co-Sign Detail Recorded Client Recorded Date Recorded By Document 05/09/17 12:48 [id number] 05/09/17 12:48 05/09/17 12:48 Wound Center Nurse 2 [Procedure/Treatment] #1- BLE EDEMA -Time 12:48 -Correct Patient Yes -Correct Side, Site, Position Yes -Correct Procedure Yes -Procedure Performed No -Wound/Ulcer Outcome Not Healed -Ulcer Cleansing Rinsed/ Irrigated with Saline -Foul Odor after Cleansing No -Bioengineered Tissue No -Bleeding Controlled with NA [See Physician Procedure note for Specifics] Pain Scale: 0-10 Numeric [Pain] -Is Patient Pain Free? Yes Neurological: Cranial nerves II-XII grossly intact, Neuro grossly intact Psych/Mental Status: Normal Affect, Appropriate, Alert and oriented to time, place, person, mood and affect Debridement Note Post-Debridement Measurements/Treatment WC - Nurse 2 - General Ulcer CM Notes Start: 05/02/17 12:34 Freq: Status: Active Protocol: Activity Type Activity Date Activity User E-Sign Co-Sign Detail Recorded Client Recorded Date Recorded By Document 05/02/17 13:49 DV [id number] 05/02/17 13:53 DV Document 05/09/17 12:48 [id number] 05/09/17 12:48 05/02/17 05/09/17 13:49 12:48 Wound Center Nurse 2 #1- BLE EDEMA -Time 13:50 12:48 -Correct Patient Yes Yes -Correct Side, Site, Position Yes Yes -Correct Procedure Yes -Procedure Performed No No -Wound/Ulcer Outcome Not Healed -Ulcer Cleansing Rinsed/ Irrigated with Saline -Foul Odor after Cleansing No -Bioengineered Tissue No -Bleeding Controlled with NA Pain Scale: 0-10 Numeric Is Patient Pain Free? Yes No debridement was completed today Assessment/Plan Active Problems (Last Updated 03/17/17 @ 09:45 by Willie Ramirez NP-C) Swelling of lower extremity (Chronic) Edema of both legs (Chronic) Assessment: This is a 71-year-old male who is relatively inactive. His activity has been adversely affected by aging, and symptoms related to lumbar disc disease. He has recently undergone lumbar laminectomy. His activity has been curtailed recently, concomitant to increased swelling and edema in his lower extremities. He sleeps in a somewhat upright position, with head of bed elevated, due to gastroesophageal reflux disease. He denies a history of thrombophlebitis. It appears as though the patient's lifestyle and habits account for his swelling and edema in the lower extremities. There has been significant improvement with the implementation of conservative treatment measures thus far. 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 An accessory saphenous vein is also incompetent in each lower extremity. Plan: The patient and his son, who is at the bedside, have been counseled in the appropriate lifestyle measures to be implemented relative to the lower extremity swelling and edema. He has been advised to elevate his lower extremities as much as possible, even during daytime hours. Elevation is to be accomplished to heart level, or higher. He is to avoid idle standing and sitting. Activity has been encouraged, such as walking, biking, swimming, jogging, etc. The benefits of activity have been thoroughly explained, including the recruitment of calf and foot muscle pumps. We are to continue 3M 2 layer compression wraps, and will ultimately transition to the use of graduated compression stockings of at least 20-30 mmHg compression. Control of patient's weight has also been recommended. Patient will return weekly and his progress will be documented serially. It is anticipated of conservative treatment measures will suffice to achieve control of his lower extremity swelling and edema. Patient stands 5 feet 9 inches tall. He weighs 210 pounds. His BMI is 31, which places him in the overweight category. Weight loss has been recommended, and the patient has been advised to collaborate with his primary care physician in this regard. The patient is not a smoker. Influenza vaccine was not administered today. The left ankle pressure was unobtainable due to the noncompressibility of the vasculature. The right ankle-brachial index was 1.05. Because of the patient's recent lumbar surgery, and limitations in flexibility, we will continue using 3M 2 layer compression wraps which will be changed twice weekly. Patient is to start physical therapy soon, which will increase his level of activity following his recent back surgery, which will help to recruit the lower extremity muscle pumps, and assist in venous return.
--- NOTE | 2017-05-09 13:18 | HP.PCM_ITS ---
(1) GERD (gastroesophageal reflux disease) Status: Chronic Current Visit: No Code(s): K21.9 - Gastro-esophageal reflux disease without esophagitis (2) Swelling of lower extremity Status: Chronic Current Visit: Yes Code(s): M79.89 - Other specified soft tissue disorders (3) Edema of both legs Status: Chronic Current Visit: Yes Code(s): R60.0 - Localized edema (4) History of kidney stones Status: Chronic Current Visit: No Code(s): Z87.442 - Personal history of urinary calculi (5) Atherosclerosis of [place] coronary artery of [place] heart without angina pectoris Status: Chronic Current Visit: No Code(s): I25.10 - Atherosclerotic heart disease of [place] coronary artery without angina pectoris (6) Benign essential hypertension Status: Chronic Current Visit: No Code(s): I10 - Essential (primary) hypertension (7) History of benign prostatic hypertrophy Status: Chronic Current Visit: No Code(s): Z87.438 - Personal history of other diseases of male genital organs (8) History of hyperlipidemia Status: Chronic Current Visit: No Code(s): Z86.39 - Personal history of other endocrine, nutritional and metabolic disease (9) Rheumatoid arthritis Status: Chronic Current Visit: No Code(s): M06.9 - Rheumatoid arthritis, unspecified (10) Overweight Status: Chronic Current Visit: No Code(s): E66.3 - Overweight (11) Pre-op evaluation Status: Chronic Current Visit: No Code(s): Z01.818 - Encounter for other preprocedural examination History of Present Illness Date of Service: 05/09/17 Chief Complaint: Chronic swelling and edema in the lower extremities bilaterally History of Wound: This is a 71-year-old male with a long-standing history of swelling and edema in his lower extremities bilaterally. This has been ongoing for many years. Become more severe recently. The patient has a recent history of lumbar disc disease, and underwent lumbar laminectomy at the [facility] on April 19, 2017. According to the patient, his lower extremity swelling worse late in the day. He sleeps on a flat mattress at night, though often with the head of bed elevated due to gastroesophageal reflux disease. He sits for long periods of time ideally during daytime hours. He admits to being totally inactive. He denies a history of thrombophlebitis in the past. He is undergone no prior vein procedures in the past. His primary care physician recently placed him on Lasix for diuresis purposes, which has failed to have any favorable impact in his lower extremity swelling. Patient was evaluated in the emergency department at [facility] on April 29, 2017, due to his lower extremity swelling. At that time, a venous duplex examination was negative for deep vein thrombosis bilaterally. Laboratory results were as follows: White blood count 7.4, hemoglobin 10.5, medical 32.6, it was 321,000, sodium 140, potassium 3.9, chloride 107, BUN 14, creatinine 1.04, glucose 100, calcium 8.0, AST 29, ALT 33, alkaline phosphatase 97, total protein 6.6, albumin 2.9. Since patient's initial visit, there has been significant improvement. We have implemented the use of compression to the lower extremities by means of 3M 2 layer compression wrap, change twice weekly. Patient has also been modifying his daily routine, elevating his legs even during daytime hours. He has also been advised to avoid prolonged vital sitting. Past Medical History Past Medical History: Chronic Problems (Last Updated 03/17/17 @ 09:45 by Willie Ramirez NP-C) GERD (gastroesophageal reflux disease) (Chronic) Swelling of lower extremity (Chronic) Edema of both legs (Chronic) History of kidney stones (Chronic) Overweight (Chronic) Pre-op evaluation (Chronic) Atherosclerosis of [place] coronary artery of [place] heart without angina pectoris (Chronic) Benign essential hypertension (Chronic) History of benign prostatic hypertrophy (Chronic) History of hyperlipidemia (Chronic) Rheumatoid arthritis (Chronic) Surgical History: - - Patient has previously undergone coronary artery stenting of the right coronary artery. He is also undergone appendectomy, cholecystectomy, and bilateral total knee replacement in the past. Allergies/Adverse Reactions: Allergies Antihistamines - Ethylenediamine Adverse Reaction (Verified 04/29/17 17:50) Other HYPERACTIVITY Home Medications: Ambulatory Orders Medication Instructions Recorded Atorvastatin Calcium [Lipitor] 40 mg PO QHS 12/18/12 Enalapril Maleate [Vasotec] 5 mg PO BID 12/18/12 Omeprazole [Prilosec] 20 mg PO DAILY 12/18/12 Tamsulosin HCl [Flomax] 0.4 mg PO DAILY 12/18/12 Nitroglycerin [Nitrostat] 0.4 mg SUBLINGUAL Q5M PRN 04/09/15 Pramipexole Di-HCl [Mirapex] 2 mg PO QHS 04/09/15 metoprolol succinate ER 25 mg 25 mg PO QDAY 03/17/17 tablet,extended release 24 hr folic acid 1 mg tablet 2 mg PO QDAY tab 03/18/17 methotrexate sodium 2.5 mg tablet 6 mg PO QWEEK tab 03/18/17 modafinil 100 mg tablet 200 mg PO QDAY tab 03/18/17 tramadol 50 mg tablet 100 mg PO Q6H PRN tab 03/18/17 Aspirin 325 mg PO DAILY 04/29/17 Furosemide [Lasix] 40 mg PO DAILY #7 tablet 04/29/17 - Family History Maternal Family History: Family History (Last Updated 03/17/17 @ 09:38 by Willie Ramirez CHECKER/STOCKER-C) Father CAD (coronary artery disease) Mother CAD (coronary artery disease) Breast cancer Colon cancer Diabetes Brother CAD (coronary artery disease) CVA (cerebral vascular accident) Diabetes Lives: Spouse/ Significant Other Smoking Status: Never smoker Tobacco Use: Non-smoker Alcohol: None Drugs: None Review of Systems Constitutional: Denies: Chills, Fever, Weight Change Eyes: Denies: Pain, Vision Change HEENT: Denies: Difficulty Hearing, Difficulty Swallowing, Sinus Congestion Cardiovascular: Denies: Chest Pain, Palpitations Respiratory: Denies: Cough, Shortness of Breath Gastrointestinal: Denies: Diarrhea, Nausea, Vomiting Genitourinary: Denies: Dysuria, Hematuria Endocrine: Denies: Heat/ Cold Intolerance, Polydipsia, Polyuria Hematologic/ Lymphatic: Denies: Easy Bruising, Easy Bleeding - Physical Exam Vital Signs Temp Pulse Resp BP 97.7 F L 90 16 144/79 H 05/09/17 12:24 05/09/17 12:24 05/09/17 12:24 05/09/17 12:24 General: Alert, Oriented x3, Cooperative, No apparent distress, Well developed, Well nourished HEENT: Atraumatic, PERRLA, EOMI, Normocephalic Oral: Moist Mucosa Neck: No JVD Lungs: Normal air movement Abdomen: Non-Distended Extremities: No clubbing, No cyanosis, No Calf Tenderness, - - The swelling and edema in the patient's lower extremities is much improved. Circumference measurements are documented elsewhere, and are less than previously noted. There are no significant skin changes in the lower extremities. There are no open wounds or ulcerations. There is no sign of infection or cellulitis. Skin: No rashes, No breakdown Wound Measurements and Assessment WC - Nurse 1 - General Ulcer Measurement Start: 05/02/17 12:34 Freq: Status: Active Protocol: Activity Type Activity Date Activity User E-Sign Co-Sign Detail Recorded Client Recorded Date Recorded By Document 05/09/17 12:24 [facility] [id number] 05/09/17 12:38 [facility] 05/09/17 12:24 Wound Center Nurse 1 [Edema Assessment] -Lower Limb Edema Present Yes -Right Calf (cm) 38.5 -Right Ankle (cm) 24.7 -Left Calf (cm) 38.9 -Left Ankle (cm) 24.9 WC - Nurse 2 - General Ulcer CM Notes Start: 05/02/17 12:34 Freq: Status: Active Protocol: Activity Type Activity Date Activity User E-Sign Co-Sign Detail Recorded Client Recorded Date Recorded By Document 05/09/17 12:48 [id number] 05/09/17 12:48 05/09/17 12:48 Wound Center Nurse 2 [Procedure/Treatment] #1- BLE EDEMA -Time 12:48 -Correct Patient Yes -Correct Side, Site, Position Yes -Correct Procedure Yes -Procedure Performed No -Wound/Ulcer Outcome Not Healed -Ulcer Cleansing Rinsed/ Irrigated with Saline -Foul Odor after Cleansing No -Bioengineered Tissue No -Bleeding Controlled with NA [See Physician Procedure note for Specifics] Pain Scale: 0-10 Numeric [Pain] -Is Patient Pain Free? Yes Neurological: Cranial nerves II-XII grossly intact, Neuro grossly intact Psych/Mental Status: Normal Affect, Appropriate, Alert and oriented to time, place, person, mood and affect Debridement Note Post-Debridement Measurements/Treatment WC - Nurse 2 - General Ulcer CM Notes Start: 05/02/17 12:34 Freq: Status: Active Protocol: Activity Type Activity Date Activity User E-Sign Co-Sign Detail Recorded Client Recorded Date Recorded By Document 05/02/17 13:49 DV [id number] 05/02/17 13:53 DV Document 05/09/17 12:48 [id number] 05/09/17 12:48 05/02/17 05/09/17 13:49 12:48 Wound Center Nurse 2 #1- BLE EDEMA -Time 13:50 12:48 -Correct Patient Yes Yes -Correct Side, Site, Position Yes Yes -Correct Procedure Yes -Procedure Performed No No -Wound/Ulcer Outcome Not Healed -Ulcer Cleansing Rinsed/ Irrigated with Saline -Foul Odor after Cleansing No -Bioengineered Tissue No -Bleeding Controlled with NA Pain Scale: 0-10 Numeric Is Patient Pain Free? Yes No debridement was completed today Assessment/Plan Active Problems (Last Updated 03/17/17 @ 09:45 by Willie Ramirez NP-C) Swelling of lower extremity (Chronic) Edema of both legs (Chronic) Assessment: This is a 71-year-old male who is relatively inactive. His activity has been adversely affected by aging, and symptoms related to lumbar disc disease. He has recently undergone lumbar laminectomy. His activity has been curtailed recently, concomitant to increased swelling and edema in his lower extremities. He sleeps in a somewhat upright position, with head of bed elevated, due to gastroesophageal reflux disease. He denies a history of thrombophlebitis. It appears as though the patient's lifestyle and habits account for his swelling and edema in the lower extremities. There has been significant improvement with the implementation of conservative treatment measures thus far. 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 An accessory saphenous vein is also incompetent in each lower extremity. Plan: The patient and his son, who is at the bedside, have been counseled in the appropriate lifestyle measures to be implemented relative to the lower extremity swelling and edema. He has been advised to elevate his lower extremities as much as possible, even during daytime hours. Elevation is to be accomplished to heart level, or higher. He is to avoid idle standing and sitting. Activity has been encouraged, such as walking, biking, swimming, jogging, etc. The benefits of activity have been thoroughly explained, including the recruitment of calf and foot muscle pumps. We are to continue 3M 2 layer compression wraps, and will ultimately transition to the use of graduated compression stockings of at least 20-30 mmHg compression. Control of patient's weight has also been recommended. Patient will return weekly and his progress will be documented serially. It is anticipated of conservative treatment measures will suffice to achieve control of his lower extremity swelling and edema. Patient stands 5 feet 9 inches tall. He weighs 210 pounds. His BMI is 31, which places him in the overweight category. Weight loss has been recommended, and the patient has been advised to collaborate with his primary care physician in this regard. The patient is not a smoker. Influenza vaccine was not administered today. The left ankle pressure was unobtainable due to the noncompressibility of the vasculature. The right ankle- brachial index was 1.05. Because of the patient's recent lumbar surgery, and limitations in flexibility, we will continue using 3M 2 layer compression wraps which will be changed twice weekly. Patient is to start physical therapy soon, which will increase his level of activity following his recent back surgery, which will help to recruit the lower extremity muscle pumps, and assist in venous return.
[2017-05-12 12:54] VITALS: BP 151/80; PULSE 80; RESP 18; TEMP 35.6; BMI 31.0
[2017-05-16 12:59] VITALS: RESP 16; TEMP 37.1; BMI 31.0
--- NOTE | 2017-05-16 14:27 | PCM.WC.HP ---
(1) GERD (gastroesophageal reflux disease) Status: Chronic Current Visit: No Code(s): K21.9 - Gastro-esophageal reflux disease without esophagitis (2) Swelling of lower extremity Status: Chronic Current Visit: Yes Code(s): M79.89 - Other specified soft tissue disorders (3) Edema of both legs Status: Chronic Current Visit: Yes Code(s): R60.0 - Localized edema (4) History of kidney stones Status: Chronic Current Visit: No Code(s): Z87.442 - Personal history of urinary calculi (5) Atherosclerosis of [place] coronary artery of [place] heart without angina pectoris Status: Chronic Current Visit: No Code(s): I25.10 - Atherosclerotic heart disease of [place] coronary artery without angina pectoris (6) Benign essential hypertension Status: Chronic Current Visit: No Code(s): I10 - Essential (primary) hypertension (7) History of benign prostatic hypertrophy Status: Chronic Current Visit: No Code(s): Z87.438 - Personal history of other diseases of male genital organs (8) History of hyperlipidemia Status: Chronic Current Visit: No Code(s): Z86.39 - Personal history of other endocrine, nutritional and metabolic disease (9) Rheumatoid arthritis Status: Chronic Current Visit: No Code(s): M06.9 - Rheumatoid arthritis, unspecified (10) Overweight Status: Chronic Current Visit: No Code(s): E66.3 - Overweight (11) Pre-op evaluation Status: Chronic Current Visit: No Code(s): Z01.818 - Encounter for other preprocedural examination History of Present Illness Date of Service: 05/16/17 Chief Complaint: Chronic swelling and edema in the lower extremities bilaterally History of Wound: This is a 71-year-old male with a long-standing history of swelling and edema in his lower extremities bilaterally. This has been ongoing for many years. It has become more severe recently. The patient has a recent history of lumbar disc disease, and underwent lumbar laminectomy at the [facility] on April 19, 2017. According to the patient, his lower extremity swelling is worse late in the day. He sleeps on a flat mattress at night, though often with the head of bed elevated due to gastroesophageal reflux disease. He sits for long periods of time idlely during daytime hours. He admits to being relatively inactive. He denies a history of thrombophlebitis in the past. He has undergone no prior vein procedures in the past. His primary care physician recently placed him on Lasix for diuresis purposes, which has failed to have any favorable impact in his lower extremity swelling. Patient was evaluated in the emergency department at [facility] on April 29, 2017, due to his lower extremity swelling. At that time, a venous duplex examination was negative for deep vein thrombosis bilaterally. Laboratory results were as follows: White blood count 7.4, hemoglobin 10.5, medical 32.6, it was 321,000, sodium 140, potassium 3.9, chloride 107, BUN 14, creatinine 1.04, glucose 100, calcium 8.0, AST 29, ALT 33, alkaline phosphatase 97, total protein 6.6, albumin 2.9. Since patient's initial visit, there has been significant improvement. We have implemented the use of compression to the lower extremities by means of 3M 2 layer compression wrap, changed twice weekly. Patient has also been modifying his daily routine, elevating his legs even during daytime hours. He has also been advised to avoid prolonged idle sitting. Result, there has been significant improvement in the swelling and edema in the patient's lower extremities, as noted today. Past Medical History Past Medical History: Chronic Problems (Last Updated 03/17/17 @ 09:45 by OPAL FariaC) GERD (gastroesophageal reflux disease) (Chronic) Swelling of lower extremity (Chronic) Edema of both legs (Chronic) History of kidney stones (Chronic) Overweight (Chronic) Pre-op evaluation (Chronic) Atherosclerosis of [place] coronary artery of [place] heart without angina pectoris (Chronic) Benign essential hypertension (Chronic) History of benign prostatic hypertrophy (Chronic) History of hyperlipidemia (Chronic) Rheumatoid arthritis (Chronic) Surgical History: - - Patient has previously undergone coronary artery stenting of the right coronary artery. He is also undergone appendectomy, cholecystectomy, and bilateral total knee replacement in the past. Allergies/Adverse Reactions: Allergies Antihistamines - Ethylenediamine Adverse Reaction (Verified 04/29/17 17:50) Other HYPERACTIVITY Home Medications: Ambulatory Orders Medication Instructions Recorded Atorvastatin Calcium [Lipitor] 40 mg PO QHS 12/18/12 Enalapril Maleate [Vasotec] 5 mg PO BID 12/18/12 Omeprazole [Prilosec] 20 mg PO DAILY 12/18/12 Tamsulosin HCl [Flomax] 0.4 mg PO DAILY 12/18/12 Nitroglycerin [Nitrostat] 0.4 mg SUBLINGUAL Q5M PRN 04/09/15 Pramipexole Di-HCl [Mirapex] 2 mg PO QHS 04/09/15 metoprolol succinate ER 25 mg 25 mg PO QDAY 03/17/17 tablet,extended release 24 hr folic acid 1 mg tablet 2 mg PO QDAY tab 03/18/17 methotrexate sodium 2.5 mg tablet 6 mg PO QWEEK tab 03/18/17 modafinil 100 mg tablet 200 mg PO QDAY tab 03/18/17 tramadol 50 mg tablet 100 mg PO Q6H PRN tab 03/18/17 Aspirin 325 mg PO DAILY 04/29/17 Furosemide [Lasix] 40 mg PO DAILY #7 tablet 04/29/17 - Family History Maternal Family History: Family History (Last Updated 03/17/17 @ 09:38 by Willie Ramirez [employer]-C) Father CAD (coronary artery disease) Mother CAD (coronary artery disease) Breast cancer Colon cancer Diabetes Brother CAD (coronary artery disease) CVA (cerebral vascular accident) Diabetes Lives: Spouse/ Significant Other Smoking Status: Never smoker Tobacco Use: Non-smoker Alcohol: None Drugs: None Review of Systems Constitutional: Denies: Chills, Fever, Weight Change Eyes: Denies: Pain, Vision Change HEENT: Denies: Difficulty Hearing, Difficulty Swallowing, Sinus Congestion Cardiovascular: Denies: Chest Pain, Palpitations Respiratory: Denies: Cough, Shortness of Breath Gastrointestinal: Denies: Diarrhea, Nausea, Vomiting Genitourinary: Denies: Dysuria, Hematuria Endocrine: Denies: Heat/ Cold Intolerance, Polydipsia, Polyuria Hematologic/ Lymphatic: Denies: Easy Bruising, Easy Bleeding - Physical Exam Vital Signs Temp Pulse Resp BP 98.7 F 80 16 151/80 H 05/16/17 12:59 05/12/17 12:54 05/16/17 12:59 05/12/17 12:54 General: Alert, Oriented x3, Cooperative, No apparent distress, Well developed, Well nourished HEENT: Atraumatic, PERRLA, EOMI, Normocephalic Oral: Moist Mucosa Neck: No JVD Lungs: Normal air movement Abdomen: Non-Distended Extremities: No clubbing, No cyanosis, No Calf Tenderness, - - The swelling and edema in the patient's lower extremities has been minimized. Dimensions are documented elsewhere. There is marketed improvement. There are no significant skin changes. There are no wounds or ulcerations. Skin: No rashes, No breakdown Wound Measurements and Assessment WC - Nurse 1 - General Ulcer Measurement Start: 05/02/17 12:34 Freq: Status: Active Protocol: Activity Type Activity Date Activity User E-Sign Co-Sign Detail Recorded Client Recorded Date Recorded By Document 05/16/17 12:59 [facility] [id number] 05/16/17 13:12 [facility] 05/16/17 12:59 Wound Center Nurse 1 [Edema Assessment] -Lower Limb Edema Present Yes -Right Calf (cm) 38.5 -Right Ankle (cm) 22.4 -Left Calf (cm) 37 -Left Ankle (cm) 24.8 WC - Nurse 2 - General Ulcer CM Notes Start: 05/02/17 12:34 Freq: Status: Active Protocol: Activity Type Activity Date Activity User E-Sign Co-Sign Detail Recorded Client Recorded Date Recorded By Document 05/16/17 14:22 [id number] 05/16/17 14:23 05/16/17 14:22 Wound Center Nurse 2 [Procedure/Treatment] #1- BLE EDEMA -Time 14:22 -Correct Patient Yes -Correct Side, Site, Position Yes -Correct Procedure Yes -Procedure Performed No -Wound/Ulcer Outcome Healed- Epithelialized -Bleeding Controlled with NA -Treatment Response Procedure Tolerated Well [See Physician Procedure note for Specifics] Pain Scale: 0-10 Numeric [Pain] -Is Patient Pain Free? Yes Neurological: Cranial nerves II-XII grossly intact, Neuro grossly intact Psych/Mental Status: Normal Affect, Appropriate, Alert and oriented to time, place, person, mood and affect Debridement Note Post-Debridement Measurements/Treatment WC - Nurse 2 - General Ulcer CM Notes Start: 05/02/17 12:34 Freq: Status: Active Protocol: Activity Type Activity Date Activity User E-Sign Co-Sign Detail Recorded Client Recorded Date Recorded By Document 05/02/17 13:49 DV [id number] 05/02/17 13:53 DV Document 05/09/17 12:48 JS [id number] 05/09/17 12:48 JS Document 05/16/17 14:22 [id number] 05/16/17 14:23 05/02/17 05/09/17 05/16/17 13:49 12:48 14:22 Wound Center Nurse 2 #1- BLE EDEMA -Time 13:50 12:48 14:22 -Correct Patient Yes Yes Yes -Correct Side, Site, Position Yes Yes Yes -Correct Procedure Yes Yes -Procedure Performed No No No -Wound/Ulcer Outcome Not Healed Healed- Epithelialized -Ulcer Cleansing Rinsed/ Irrigated with Saline -Foul Odor after Cleansing No -Bioengineered Tissue No -Bleeding Controlled with NA NA -Treatment Response Procedure Tolerated Well Pain Scale: 0-10 Numeric Is Patient Pain Free? Yes Yes No debridement was completed today Assessment/Plan Active Problems (Last Updated 03/17/17 @ 09:45 by Willie Ramirez NP-C) Swelling of lower extremity (Chronic) Edema of both legs (Chronic) Assessment: This is a 71-year-old male who is relatively inactive. His activity has been adversely affected by aging, and symptoms related to lumbar disc disease. He has recently undergone lumbar laminectomy. His activity has been curtailed recently, concomitant to increased swelling and edema in his lower extremities. He sleeps in a somewhat upright position, with head of bed elevated, due to gastroesophageal reflux disease. He denies a history of thrombophlebitis. It appears as though the patient's lifestyle and habits account for his swelling and edema in the lower extremities. There has been significant improvement with the implementation of conservative treatment measures thus far. 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 An accessory saphenous vein is also incompetent in each lower extremity. Plan: The patient has been counseled in the appropriate lifestyle measures to be implemented relative to the lower extremity swelling and edema. He has been advised to elevate his lower extremities as much as possible, even during daytime hours. Elevation is to be accomplished to heart level, or higher. He is to avoid idle standing and sitting. Activity has been encouraged, such as walking, biking, swimming, jogging, etc. The benefits of activity have been thoroughly explained, including the recruitment of calf and foot muscle pumps. We are to continue 3M 2 layer compression wraps, but have prescribed graduated compression stockings of 20-30 mmHg compression, knee-high length. The patient is to obtain the stockings within the next several days. He will follow-up on an outpatient basis in approximately 2 weeks for reassessment. If he continues to do well, it is likely that he will be discharged and followed-up thereafter on an as needed basis. Control of patient's weight has also been recommended. Patient stands 5 feet 9 inches tall. He weighs 210 pounds. His BMI is 31, which places him in the overweight category. Weight loss has been recommended, and the patient has been advised to collaborate with his primary care physician in this regard. The patient is not a smoker. Influenza vaccine was not administered today. Patient has started physical therapy, which will increase his level of activity following his recent back surgery, which will help to recruit the lower extremity muscle pumps, and assist in venous return.
--- NOTE | 2017-05-16 14:34 | HP.PCM_ITS ---
(1) GERD (gastroesophageal reflux disease) Status: Chronic Current Visit: No Code(s): K21.9 - Gastro-esophageal reflux disease without esophagitis (2) Swelling of lower extremity Status: Chronic Current Visit: Yes Code(s): M79.89 - Other specified soft tissue disorders (3) Edema of both legs Status: Chronic Current Visit: Yes Code(s): R60.0 - Localized edema (4) History of kidney stones Status: Chronic Current Visit: No Code(s): Z87.442 - Personal history of urinary calculi (5) Atherosclerosis of [place] coronary artery of [place] heart without angina pectoris Status: Chronic Current Visit: No Code(s): I25.10 - Atherosclerotic heart disease of [place] coronary artery without angina pectoris (6) Benign essential hypertension Status: Chronic Current Visit: No Code(s): I10 - Essential (primary) hypertension (7) History of benign prostatic hypertrophy Status: Chronic Current Visit: No Code(s): Z87.438 - Personal history of other diseases of male genital organs (8) History of hyperlipidemia Status: Chronic Current Visit: No Code(s): Z86.39 - Personal history of other endocrine, nutritional and metabolic disease (9) Rheumatoid arthritis Status: Chronic Current Visit: No Code(s): M06.9 - Rheumatoid arthritis, unspecified (10) Overweight Status: Chronic Current Visit: No Code(s): E66.3 - Overweight (11) Pre-op evaluation Status: Chronic Current Visit: No Code(s): Z01.818 - Encounter for other preprocedural examination History of Present Illness Date of Service: 05/16/17 Chief Complaint: Chronic swelling and edema in the lower extremities bilaterally History of Wound: This is a 71-year-old male with a long-standing history of swelling and edema in his lower extremities bilaterally. This has been ongoing for many years. It has become more severe recently. The patient has a recent history of lumbar disc disease, and underwent lumbar laminectomy at the [facility] on April 19, 2017. According to the patient, his lower extremity swelling is worse late in the day. He sleeps on a flat mattress at night, though often with the head of bed elevated due to gastroesophageal reflux disease. He sits for long periods of time idlely during daytime hours. He admits to being relatively inactive. He denies a history of thrombophlebitis in the past. He has undergone no prior vein procedures in the past. His primary care physician recently placed him on Lasix for diuresis purposes, which has failed to have any favorable impact in his lower extremity swelling. Patient was evaluated in the emergency department at [facility] on April 29, 2017, due to his lower extremity swelling. At that time, a venous duplex examination was negative for deep vein thrombosis bilaterally. Laboratory results were as follows: White blood count 7.4, hemoglobin 10.5, medical 32.6, it was 321,000, sodium 140, potassium 3.9, chloride 107, BUN 14, creatinine 1.04, glucose 100, calcium 8.0, AST 29, ALT 33, alkaline phosphatase 97, total protein 6.6, albumin 2.9. Since patient's initial visit, there has been significant improvement. We have implemented the use of compression to the lower extremities by means of 3M 2 layer compression wrap, changed twice weekly. Patient has also been modifying his daily routine, elevating his legs even during daytime hours. He has also been advised to avoid prolonged idle sitting. Result, there has been significant improvement in the swelling and edema in the patient's lower extremities, as noted today. Past Medical History Past Medical History: Chronic Problems (Last Updated 03/17/17 @ 09:45 by OPAL FariaC) GERD (gastroesophageal reflux disease) (Chronic) Swelling of lower extremity (Chronic) Edema of both legs (Chronic) History of kidney stones (Chronic) Overweight (Chronic) Pre-op evaluation (Chronic) Atherosclerosis [place] coronary artery of [place] heart without angina pectoris (Chronic) Benign essential hypertension (Chronic) History of benign prostatic hypertrophy (Chronic) History of hyperlipidemia (Chronic) Rheumatoid arthritis (Chronic) Surgical History: - - Patient has previously undergone coronary artery stenting of the right coronary artery. He is also undergone appendectomy, cholecystectomy, and bilateral total knee replacement in the past. Allergies/Adverse Reactions: Allergies Antihistamines - Ethylenediamine Adverse Reaction (Verified 04/29/17 17:50) Other HYPERACTIVITY Home Medications: Ambulatory Orders Medication Instructions Recorded Atorvastatin Calcium [Lipitor] 40 mg PO QHS 12/18/12 Enalapril Maleate [Vasotec] 5 mg PO BID 12/18/12 Omeprazole [Prilosec] 20 mg PO DAILY 12/18/12 Tamsulosin HCl [Flomax] 0.4 mg PO DAILY 12/18/12 Nitroglycerin [Nitrostat] 0.4 mg SUBLINGUAL Q5M PRN 04/09/15 Pramipexole Di-HCl [Mirapex] 2 mg PO QHS 04/09/15 metoprolol succinate ER 25 mg 25 mg PO QDAY 03/17/17 tablet,extended release 24 hr folic acid 1 mg tablet 2 mg PO QDAY tab 03/18/17 methotrexate sodium 2.5 mg tablet 6 mg PO QWEEK tab 03/18/17 modafinil 100 mg tablet 200 mg PO QDAY tab 03/18/17 tramadol 50 mg tablet 100 mg PO Q6H PRN tab 03/18/17 Aspirin 325 mg PO DAILY 04/29/17 Furosemide [Lasix] 40 mg PO DAILY #7 tablet 04/29/17 - Family History Maternal Family History: Family History (Last Updated 03/17/17 @ 09:38 by Willie Ramirez [employer]-C) Father CAD (coronary artery disease) Mother CAD (coronary artery disease) Breast cancer Colon cancer Diabetes Brother CAD (coronary artery disease) CVA (cerebral vascular accident) Diabetes Lives: Spouse/ Significant Other Smoking Status: Never smoker Tobacco Use: Non-smoker Alcohol: None Drugs: None Review of Systems Constitutional: Denies: Chills, Fever, Weight Change Eyes: Denies: Pain, Vision Change HEENT: Denies: Difficulty Hearing, Difficulty Swallowing, Sinus Congestion Cardiovascular: Denies: Chest Pain, Palpitations Respiratory: Denies: Cough, Shortness of Breath Gastrointestinal: Denies: Diarrhea, Nausea, Vomiting Genitourinary: Denies: Dysuria, Hematuria Endocrine: Denies: Heat/ Cold Intolerance, Polydipsia, Polyuria Hematologic/ Lymphatic: Denies: Easy Bruising, Easy Bleeding - Physical Exam Vital Signs Temp Pulse Resp BP 98.7 F 80 16 151/80 H 05/16/17 12:59 05/12/17 12:54 05/16/17 12:59 05/12/17 12:54 General: Alert, Oriented x3, Cooperative, No apparent distress, Well developed, Well nourished HEENT: Atraumatic, PERRLA, EOMI, Normocephalic Oral: Moist Mucosa Neck: No JVD Lungs: Normal air movement Abdomen: Non-Distended Extremities: No clubbing, No cyanosis, No Calf Tenderness, - - The swelling and edema in the patient's lower extremities has been minimized. Dimensions are documented elsewhere. There is marketed improvement. There are no significant skin changes. There are no wounds or ulcerations. Skin: No rashes, No breakdown Wound Measurements and Assessment WC - Nurse 1 - General Ulcer Measurement Start: 05/02/17 12:34 Freq: Status: Active Protocol: Activity Type Activity Date Activity User E-Sign Co-Sign Detail Recorded Client Recorded Date Recorded By Document 05/16/17 12:59 [facility] [id number] 05/16/17 13:12 [facility] 05/16/17 12:59 Wound Center Nurse 1 [Edema Assessment] -Lower Limb Edema Present Yes -Right Calf (cm) 38.5 -Right Ankle (cm) 22.4 -Left Calf (cm) 37 -Left Ankle (cm) 24.8 WC - Nurse 2 - General Ulcer CM Notes Start: 05/02/17 12:34 Freq: Status: Active Protocol: Activity Type Activity Date Activity User E-Sign Co-Sign Detail Recorded Client Recorded Date Recorded By Document 05/16/17 14:22 [id number] 05/16/17 14:23 05/16/17 14:22 Wound Center Nurse 2 [Procedure/Treatment] #1- BLE EDEMA -Time 14:22 -Correct Patient Yes -Correct Side, Site, Position Yes -Correct Procedure Yes -Procedure Performed No -Wound/Ulcer Outcome Healed- Epithelialized -Bleeding Controlled with NA -Treatment Response Procedure Tolerated Well [See Physician Procedure note for Specifics] Pain Scale: 0-10 Numeric [Pain] -Is Patient Pain Free? Yes Neurological: Cranial nerves II-XII grossly intact, Neuro grossly intact Psych/Mental Status: Normal Affect, Appropriate, Alert and oriented to time, place, person, mood and affect Debridement Note Post-Debridement Measurements/Treatment WC - Nurse 2 - General Ulcer CM Notes Start: 05/02/17 12:34 Freq: Status: Active Protocol: Activity Type Activity Date Activity User E-Sign Co-Sign Detail Recorded Client Recorded Date Recorded By Document 05/02/17 13:49 DV [id number] 05/02/17 13:53 DV Document 05/09/17 12:48 JS [id number] 05/09/17 12:48 JS Document 05/16/17 14:22 [id number] 05/16/17 14:23 05/02/17 05/09/17 05/16/17 13:49 12:48 14:22 Wound Center Nurse 2 #1- BLE EDEMA -Time 13:50 12:48 14:22 -Correct Patient Yes Yes Yes -Correct Side, Site, Position Yes Yes Yes -Correct Procedure Yes Yes -Procedure Performed No No No -Wound/Ulcer Outcome Not Healed Healed- Epithelialized -Ulcer Cleansing Rinsed/ Irrigated with Saline -Foul Odor after Cleansing No -Bioengineered Tissue No -Bleeding Controlled with NA NA -Treatment Response Procedure Tolerated Well Pain Scale: 0-10 Numeric Is Patient Pain Free? Yes Yes No debridement was completed today Assessment/Plan Active Problems (Last Updated 03/17/17 @ 09:45 by Willie Ramirez NP-C) Swelling of lower extremity (Chronic) Edema of both legs (Chronic) Assessment: This is a 71-year-old male who is relatively inactive. His activity has been adversely affected by aging, and symptoms related to lumbar disc disease. He has recently undergone lumbar laminectomy. His activity has been curtailed recently, concomitant to increased swelling and edema in his lower extremities. He sleeps in a somewhat upright position, with head of bed elevated, due to gastroesophageal reflux disease. He denies a history of thrombophlebitis. It appears as though the patient's lifestyle and habits account for his swelling and edema in the lower extremities. There has been significant improvement with the implementation of conservative treatment measures thus far. 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 An accessory saphenous vein is also incompetent in each lower extremity. Plan: The patient has been counseled in the appropriate lifestyle measures to be implemented relative to the lower extremity swelling and edema. He has been advised to elevate his lower extremities as much as possible, even during daytime hours. Elevation is to be accomplished to heart level, or higher. He is to avoid idle standing and sitting. Activity has been encouraged, such as walking, biking, swimming, jogging, etc. The benefits of activity have been thoroughly explained, including the recruitment of calf and foot muscle pumps. We are to continue 3M 2 layer compression wraps, but have prescribed graduated compression stockings of 20-30 mmHg compression, knee-high length. The patient is to obtain the stockings within the next several days. He will follow-up on an outpatient basis in approximately 2 weeks for reassessment. If he continues to do well, it is likely that he will be discharged and followed-up thereafter on an as needed basis. Control of patient's weight has also been recommended. Patient stands 5 feet 9 inches tall. He weighs 210 pounds. His BMI is 31, which places him in the overweight category. Weight loss has been recommended, and the patient has been advised to collaborate with his primary care physician in this regard. The patient is not a smoker. Influenza vaccine was not administered today. Patient has started physical therapy, which will increase his level of activity following his recent back surgery, which will help to recruit the lower extremity muscle pumps, and assist in venous return.
== END 2017-05-18 23:59 ==
LOC: WC 13:00
PROVIDERS: Family Provider Family Medicine; PCP Family Medicine; Visit Provider Surgery
DX: R60.0 Localized edema (principal); M79.89 Other specified soft tissue disorders; M06.9 Rheumatoid arthritis, unspecified; N40.0 Benign prostatic hyperplasia without lower urinary tract symptoms; E78.5 Hyperlipidemia, unspecified; I10 Essential (primary) hypertension; K21.9 Gastro-esophageal reflux disease without esophagitis; Z87.442 Personal history of urinary calculi; I25.10 Atherosclerotic heart disease of native coronary artery without angina pectoris; Z95.5 Presence of coronary angioplasty implant and graft; Z79.899 Other long term (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; Z79.82 Long term (current) use of aspirin
CPT/HCPCS: 29581; 93970; 99211; 99212; 99213; 99214; G0463

== ENCOUNTER 2017-05-30 13:00 | Outpatient (RCR) | payer MEDICARE, SELFPAY ==
[2017-05-19 01:04] VITALS: PULSE 80; RESP 16; TEMP 37.1
[2017-05-30 12:59] VITALS: BP 155/82; PULSE 93; RESP 18; TEMP 36.8
--- NOTE | 2017-05-30 13:38 | PCM.WC.HP ---
(1) Presence of stent in coronary artery Status: Chronic Current Visit: No Code(s): Z95.5 - Presence of coronary angioplasty implant and graft Comment: PTCA/SAMANTHA to prox RCA 09/21/11 (2) GERD (gastroesophageal reflux disease) Status: Chronic Current Visit: No Code(s): K21.9 - Gastro-esophageal reflux disease without esophagitis (3) Swelling of lower extremity Status: Chronic Current Visit: Yes Code(s): M79.89 - Other specified soft tissue disorders (4) Edema of both legs Status: Chronic Current Visit: Yes Code(s): R60.0 - Localized edema (5) History of kidney stones Status: Chronic Current Visit: No Code(s): Z87.442 - Personal history of urinary calculi (6) Overweight Status: Chronic Current Visit: No Code(s): E66.3 - Overweight (7) Pre-op evaluation Status: Chronic Current Visit: No Code(s): Z01.818 - Encounter for other preprocedural examination (8) Atherosclerosis of [place] coronary artery of [place] heart without angina pectoris Status: Chronic Current Visit: No Code(s): I25.10 - Atherosclerotic heart disease of [place] coronary artery without angina pectoris (9) Atherosclerosis of [place] coronary artery of [place] heart without angina pectoris Status: Chronic Current Visit: No Code(s): I25.10 - Atherosclerotic heart disease of [place] coronary artery without angina pectoris Comment: PTCA/SAMANTHA to prox RCA 09/21/11 History of Present Illness Date of Service: 05/30/17 Chief Complaint: Chronic swelling and edema in the lower extremities bilaterally History of Wound: This is a 71-year-old male with a long-standing history of swelling and edema in his lower extremities bilaterally. This has been ongoing for many years. It has become more severe recently. The patient has a recent history of lumbar disc disease, and underwent lumbar laminectomy at the [facility] on April 19, 2017. As a result, the patient's activity level diminished considerably during the postoperative period. He subsequently noted enhanced swelling and edema in his lower extremities. According to the patient, his lower extremity swelling is worse late in the day. He sleeps on a flat mattress at night, though often with the head of bed elevated due to gastroesophageal reflux disease. He sits for long periods of time idlely during daytime hours. He admits to being relatively inactive. He denies a history of thrombophlebitis in the past. He has undergone no prior vein procedures in the past. His primary care physician recently placed him on Lasix for diuresis purposes, which has failed to have any favorable impact in his lower extremity swelling. Patient was evaluated in the emergency department at [facility] on April 29, 2017, due to his lower extremity swelling. At that time, a venous duplex examination was negative for deep vein thrombosis bilaterally. Laboratory results were as follows: White blood count 7.4, hemoglobin 10.5, medical 32.6, it was 321,000, sodium 140, potassium 3.9, chloride 107, BUN 14, creatinine 1.04, glucose 100, calcium 8.0, AST 29, ALT 33, alkaline phosphatase 97, total protein 6.6, albumin 2.9. Since patient's initial visit, there has been significant improvement. We implemented the use of compression to the lower extremities by means of 3M 2 layer compression wrap, changed twice weekly. We then transitioned to the use of graduated compression stockings of 20-30 mmHg compression. Patient has also been modifying his daily routine, elevating his legs even during daytime hours. He has also been advised to avoid prolonged idle sitting. There has been significant improvement in the swelling and edema in the patient's lower extremities. Past Medical History Past Medical History: Chronic Problems (Last Updated 05/30/17 @ 13:20 by Shawna Thomason) Presence of stent in coronary artery (Chronic ~09/21/11) PTCA/SAMANTHA to prox RCA 09/21/11 GERD (gastroesophageal reflux disease) (Chronic) Swelling of lower extremity (Chronic) Edema of both legs (Chronic) History of kidney stones (Chronic) Overweight (Chronic) Pre-op evaluation (Chronic) Atherosclerosis of [place] coronary artery of [place] heart without angina pectoris (Chronic) Atherosclerosis of [place] coronary artery of [place] heart without angina pectoris (Chronic) PTCA/SAMANTHA to prox RCA 09/21/11 Surgical History: - - Patient has previously undergone coronary artery stenting of the right coronary artery. He is also undergone appendectomy, cholecystectomy, and bilateral total knee replacement in the past. Allergies/Adverse Reactions: Allergies Antihistamines - Ethylenediamine Adverse Reaction (Verified 04/29/17 17:50) Other HYPERACTIVITY Home Medications: Ambulatory Orders Medication Instructions Recorded Atorvastatin Calcium [Lipitor] 40 mg PO QHS 12/18/12 Enalapril Maleate [Vasotec] 5 mg PO BID 12/18/12 Omeprazole [Prilosec] 20 mg PO DAILY 12/18/12 Tamsulosin HCl [Flomax] 0.4 mg PO DAILY 12/18/12 Nitroglycerin [Nitrostat] 0.4 mg SUBLINGUAL Q5M PRN 04/09/15 Pramipexole Di-HCl [Mirapex] 2 mg PO QHS 04/09/15 metoprolol succinate ER 25 mg 25 mg PO QDAY 03/17/17 tablet,extended release 24 hr folic acid 1 mg tablet 2 mg PO QDAY tab 03/18/17 methotrexate sodium 2.5 mg tablet 6 mg PO QWEEK tab 03/18/17 modafinil 100 mg tablet 200 mg PO QDAY tab 03/18/17 tramadol 50 mg tablet 100 mg PO Q6H PRN tab 03/18/17 Aspirin 325 mg PO DAILY 04/29/17 Furosemide [Lasix] 40 mg PO DAILY #7 tab 04/29/17 Smoking Status: Never smoker Tobacco Use: Non-smoker Review of Systems Constitutional: Denies: Chills, Fever, Weight Change Eyes: Denies: Pain, Vision Change HEENT: Denies: Difficulty Hearing, Difficulty Swallowing, Sinus Congestion Cardiovascular: Denies: Chest Pain, Palpitations Respiratory: Denies: Cough, Shortness of Breath Gastrointestinal: Denies: Diarrhea, Nausea, Vomiting Genitourinary: Denies: Dysuria, Hematuria Endocrine: Denies: Heat/ Cold Intolerance, Polydipsia, Polyuria Hematologic/ Lymphatic: Denies: Easy Bruising, Easy Bleeding - Physical Exam Vital Signs Temp Pulse Resp BP 98.2 F 93 18 155/82 H 05/30/17 12:59 05/30/17 12:59 05/30/17 12:59 05/30/17 12:59 General: Alert, Oriented x3, Cooperative, No apparent distress, Well developed, Well nourished HEENT: Atraumatic, PERRLA, EOMI, Normocephalic Oral: Moist Mucosa Neck: No JVD Lungs: Normal air movement Abdomen: Non-Distended Extremities: No clubbing, No cyanosis, No Calf Tenderness, - - Minimal swelling and edema is noted in the lower extremities bilaterally. There are no open wounds or ulcerations. Circumference measurements are documented elsewhere. Patient appears to have reached a baseline in terms of the lower extremity swelling. Skin: No rashes, No breakdown Wound Measurements and Assessment WC - Nurse 1 - General Ulcer Measurement Start: 05/30/17 12:59 Freq: Status: Active Protocol: Activity Type Activity Date Activity User E-Sign Co-Sign Detail Recorded Client Recorded Date Recorded By Document 05/30/17 12:59 [facility] [id number] 05/30/17 13:06 [facility] 05/30/17 12:59 Wound Center Nurse 1 [Edema Assessment] -Lower Limb Edema Present Yes -Right Calf (cm) 38 -Right Ankle (cm) 23.5 -Left Calf (cm) 38 -Left Ankle (cm) 25.5 - Nurse 2 - General Ulcer CM Notes Start: 05/30/17 12:59 Freq: Status: Active Protocol: Activity Type Activity Date Activity User E-Sign Co-Sign Detail Recorded Client Recorded Date Recorded By Document 05/30/17 13:28 [id number] 05/30/17 13:30 05/30/17 13:28 Wound Center Nurse 2 [Procedure/Treatment] #1- BLE EDEMA -Time 13:29 -Correct Patient Yes -Correct Side, Site, Position Yes -Correct Procedure Yes -Procedure Performed No -Wound/Ulcer Outcome Healed- Epithelialized [See Physician Procedure note for Specifics] Pain Scale: 0-10 Numeric [Pain] -Is Patient Pain Free? No Musculoskeletal: No Muscle Wasting Neurological: Cranial nerves II-XII grossly intact, Neuro grossly intact Psych/Mental Status: Normal Affect, Appropriate, Alert and oriented to time, place, person, mood and affect Debridement Note Post-Debridement Measurements/Treatment - Nurse 2 - General Ulcer CM Notes Start: 05/30/17 12:59 Freq: Status: Active Protocol: Activity Type Activity Date Activity User E-Sign Co-Sign Detail Recorded Client Recorded Date Recorded By Document 05/30/17 13:28 [id number] 05/30/17 13:30 05/30/17 13:28 Wound Center Nurse 2 #1- BLE EDEMA -Time 13:29 -Correct Patient Yes -Correct Side, Site, Position Yes -Correct Procedure Yes -Procedure Performed No -Wound/Ulcer Outcome Healed- Epithelialized Pain Scale: 0-10 Numeric Is Patient Pain Free? No No debridement was completed today Assessment/Plan Active Problems (Last Updated 05/30/17 @ 13:20 by Shawna Thomason) Swelling of lower extremity (Chronic) Edema of both legs (Chronic) Assessment: This is a 71-year-old male who is relatively inactive. His activity has been adversely affected by aging, and symptoms related to recent lumbar disc disease. He has recently undergone lumbar laminectomy. His activity has been curtailed recently, concomitant to increased swelling and edema in his lower extremities. He sleeps in a somewhat upright position, with head of bed elevated, due to gastroesophageal reflux disease. He denies a history of thrombophlebitis. It appears as though the patient's lifestyle and habits account for his swelling and edema in the lower extremities. There has been significant improvement with the implementation of conservative treatment measures thus far. 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 An accessory saphenous vein is also incompetent in each lower extremity. Plan: The patient has been counseled in the appropriate lifestyle measures to be implemented relative to the lower extremity swelling and edema. He has been advised to elevate his lower extremities as much as possible, even during daytime hours. Elevation is to be accomplished to heart level, or higher. He is to avoid idle standing and sitting. Activity has been encouraged, such as walking, biking, swimming, jogging, etc. The benefits of activity have been thoroughly explained, including the recruitment of calf and foot muscle pumps. As the patient continues to recover from his recent lumbar disc surgery, and his activity level increases, there has been significant improvement in the swelling and edema in his lower extremities. He is now wearing graduated compression stockings of 20-30 mmHg compression, knee-high length, on a daily basis. He has responded quite nicely to the recommended conservative treatment measures, and is to be discharged at this time. Control of patient's weight has also been recommended. Patient stands 5 feet 9 inches tall. He weighs 210 pounds. His BMI is 31, which places him in the overweight category. Weight loss has been recommended, and the patient has been advised to collaborate with his primary care physician in this regard. The patient is not a smoker. Influenza vaccine was not administered today. Patient has started physical therapy, which will increase his level of activity following his recent back surgery, which will help to recruit the lower extremity muscle pumps, and assist in venous return.
--- NOTE | 2017-05-30 13:45 | HP.PCM_ITS ---
(1) Presence of stent in coronary artery Status: Chronic Current Visit: No Code(s): Z95.5 - Presence of coronary angioplasty implant and graft Comment: PTCA/SAMANTHA to prox RCA 09/21/11 (2) GERD (gastroesophageal reflux disease) Status: Chronic Current Visit: No Code(s): K21.9 - Gastro-esophageal reflux disease without esophagitis (3) Swelling of lower extremity Status: Chronic Current Visit: Yes Code(s): M79.89 - Other specified soft tissue disorders (4) Edema of both legs Status: Chronic Current Visit: Yes Code(s): R60.0 - Localized edema (5) History of kidney stones Status: Chronic Current Visit: No Code(s): Z87.442 - Personal history of urinary calculi (6) Overweight Status: Chronic Current Visit: No Code(s): E66.3 - Overweight (7) Pre-op evaluation Status: Chronic Current Visit: No Code(s): Z01.818 - Encounter for other preprocedural examination (8) Atherosclerosis of [place] coronary artery of [place] heart without angina pectoris Status: Chronic Current Visit: No Code(s): I25.10 - Atherosclerotic heart disease of [place] coronary artery without angina pectoris (9) Atherosclerosis of [place] coronary artery of [place] heart without angina pectoris Status: Chronic Current Visit: No Code(s): I25.10 - Atherosclerotic heart disease of [place] coronary artery without angina pectoris Comment: PTCA/SAMANTHA to prox RCA 09/21/11 History of Present Illness Date of Service: 05/30/17 Chief Complaint: Chronic swelling and edema in the lower extremities bilaterally History of Wound: This is a 71-year-old male with a long-standing history of swelling and edema in his lower extremities bilaterally. This has been ongoing for many years. It has become more severe recently. The patient has a recent history of lumbar disc disease, and underwent lumbar laminectomy at the [facility] on April 19, 2017. As a result, the patient's activity level diminished considerably during the postoperative period. He subsequently noted enhanced swelling and edema in his lower extremities. According to the patient , his lower extremity swelling is worse late in the day. He sleeps on a flat mattress at night, though often with the head of bed elevated due to gastroesophageal reflux disease. He sits for long periods of time idlely during daytime hours. He admits to being relatively inactive. He denies a history of thrombophlebitis in the past. He has undergone no prior vein procedures in the past. His primary care physician recently placed him on Lasix for diuresis purposes, which has failed to have any favorable impact in his lower extremity swelling. Patient was evaluated in the emergency department at [facility] on April 29, 2017, due to his lower extremity swelling. At that time, a venous duplex examination was negative for deep vein thrombosis bilaterally. Laboratory results were as follows: White blood count 7.4, hemoglobin 10.5, medical 32.6, it was 321,000, sodium 140, potassium 3.9, chloride 107, BUN 14, creatinine 1.04, glucose 100, calcium 8.0, AST 29, ALT 33, alkaline phosphatase 97, total protein 6.6, albumin 2.9. Since patient's initial visit, there has been significant improvement. We implemented the use of compression to the lower extremities by means of 3M 2 layer compression wrap, changed twice weekly. We then transitioned to the use of graduated compression stockings of 20-30 mmHg compression. Patient has also been modifying his daily routine, elevating his legs even during daytime hours. He has also been advised to avoid prolonged idle sitting. There has been significant improvement in the swelling and edema in the patient's lower extremities. Past Medical History Past Medical History: Chronic Problems (Last Updated 05/30/17 @ 13:20 by Shawna Thomason) Presence of stent in coronary artery (Chronic ~09/21/11) PTCA/SAMANTHA to prox RCA 09/21/11 GERD (gastroesophageal reflux disease) (Chronic) Swelling of lower extremity (Chronic) Edema of both legs (Chronic) History of kidney stones (Chronic) Overweight (Chronic) Pre-op evaluation (Chronic) Atherosclerosis of [place] coronary artery of [place] heart without angina pectoris (Chronic) Atherosclerosis of [place] coronary artery of [place] heart without angina pectoris (Chronic) PTCA/SAMANTHA to prox RCA 09/21/11 Surgical History: - - Patient has previously undergone coronary artery stenting of the right coronary artery. He is also undergone appendectomy, cholecystectomy, and bilateral total knee replacement in the past. Allergies/Adverse Reactions: Allergies Antihistamines - Ethylenediamine Adverse Reaction (Verified 04/29/17 17:50) Other HYPERACTIVITY Home Medications: Ambulatory Orders Medication Instructions Recorded Atorvastatin Calcium [Lipitor] 40 mg PO QHS 12/18/12 Enalapril Maleate [Vasotec] 5 mg PO BID 12/18/12 Omeprazole [Prilosec] 20 mg PO DAILY 12/18/12 Tamsulosin HCl [Flomax] 0.4 mg PO DAILY 12/18/12 Nitroglycerin [Nitrostat] 0.4 mg SUBLINGUAL Q5M PRN 04/09/15 Pramipexole Di-HCl [Mirapex] 2 mg PO QHS 04/09/15 metoprolol succinate ER 25 mg 25 mg PO QDAY 03/17/17 tablet,extended release 24 hr folic acid 1 mg tablet 2 mg PO QDAY tab 03/18/17 methotrexate sodium 2.5 mg tablet 6 mg PO QWEEK tab 03/18/17 modafinil 100 mg tablet 200 mg PO QDAY tab 03/18/17 tramadol 50 mg tablet 100 mg PO Q6H PRN tab 03/18/17 Aspirin 325 mg PO DAILY 04/29/17 Furosemide [Lasix] 40 mg PO DAILY #7 tab 04/29/17 Smoking Status: Never smoker Tobacco Use: Non-smoker Review of Systems Constitutional: Denies: Chills, Fever, Weight Change Eyes: Denies: Pain, Vision Change HEENT: Denies: Difficulty Hearing, Difficulty Swallowing, Sinus Congestion Cardiovascular: Denies: Chest Pain, Palpitations Respiratory: Denies: Cough, Shortness of Breath Gastrointestinal: Denies: Diarrhea, Nausea, Vomiting Genitourinary: Denies: Dysuria, Hematuria Endocrine: Denies: Heat/ Cold Intolerance, Polydipsia, Polyuria Hematologic/ Lymphatic: Denies: Easy Bruising, Easy Bleeding - Physical Exam Vital Signs Temp Pulse Resp BP 98.2 F 93 18 155/82 H 05/30/17 12:59 05/30/17 12:59 05/30/17 12:59 05/30/17 12:59 General: Alert, Oriented x3, Cooperative, No apparent distress, Well developed, Well nourished HEENT: Atraumatic, PERRLA, EOMI, Normocephalic Oral: Moist Mucosa Neck: No JVD Lungs: Normal air movement Abdomen: Non-Distended Extremities: No clubbing, No cyanosis, No Calf Tenderness, - - Minimal swelling and edema is noted in the lower extremities bilaterally. There are no open wounds or ulcerations. Circumference measurements are documented elsewhere. Patient appears to have reached a baseline in terms of the lower extremity swelling. Skin: No rashes, No breakdown Wound Measurements and Assessment WC - Nurse 1 - General Ulcer Measurement Start: 05/30/17 12:59 Freq: Status: Active Protocol: Activity Type Activity Date Activity User E-Sign Co-Sign Detail Recorded Client Recorded Date Recorded By Document 05/30/17 12:59 [facility] [id number] 05/30/17 13:06 [facility] 05/30/17 12:59 Wound Center Nurse 1 [Edema Assessment] -Lower Limb Edema Present Yes -Right Calf (cm) 38 -Right Ankle (cm) 23.5 -Left Calf (cm) 38 -Left Ankle (cm) 25.5 - Nurse 2 - General Ulcer CM Notes Start: 05/30/17 12:59 Freq: Status: Active Protocol: Activity Type Activity Date Activity User E-Sign Co-Sign Detail Recorded Client Recorded Date Recorded By Document 05/30/17 13:28 [id number] 05/30/17 13:30 05/30/17 13:28 Wound Center Nurse 2 [Procedure/Treatment] #1- BLE EDEMA -Time 13:29 -Correct Patient Yes -Correct Side, Site, Position Yes -Correct Procedure Yes -Procedure Performed No -Wound/Ulcer Outcome Healed- Epithelialized [See Physician Procedure note for Specifics] Pain Scale: 0-10 Numeric [Pain] -Is Patient Pain Free? No Musculoskeletal: No Muscle Wasting Neurological: Cranial nerves II-XII grossly intact, Neuro grossly intact Psych/Mental Status: Normal Affect, Appropriate, Alert and oriented to time, place, person, mood and affect Debridement Note Post-Debridement Measurements/Treatment - Nurse 2 - General Ulcer CM Notes Start: 05/30/17 12:59 Freq: Status: Active Protocol: Activity Type Activity Date Activity User E-Sign Co-Sign Detail Recorded Client Recorded Date Recorded By Document 05/30/17 13:28 [id number] 05/30/17 13:30 05/30/17 13:28 Wound Center Nurse 2 #1- BLE EDEMA -Time 13:29 -Correct Patient Yes -Correct Side, Site, Position Yes -Correct Procedure Yes -Procedure Performed No -Wound/Ulcer Outcome Healed- Epithelialized Pain Scale: 0-10 Numeric Is Patient Pain Free? No No debridement was completed today Assessment/Plan Active Problems (Last Updated 05/30/17 @ 13:20 by Shawna Thomason) Swelling of lower extremity (Chronic) Edema of both legs (Chronic) Assessment: This is a 71-year-old male who is relatively inactive. His activity has been adversely affected by aging, and symptoms related to recent lumbar disc disease. He has recently undergone lumbar laminectomy. His activity has been curtailed recently, concomitant to increased swelling and edema in his lower extremities. He sleeps in a somewhat upright position, with head of bed elevated, due to gastroesophageal reflux disease. He denies a history of thrombophlebitis. It appears as though the patient's lifestyle and habits account for his swelling and edema in the lower extremities. There has been significant improvement with the implementation of conservative treatment measures thus far. 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 An accessory saphenous vein is also incompetent in each lower extremity. Plan: The patient has been counseled in the appropriate lifestyle measures to be implemented relative to the lower extremity swelling and edema. He has been advised to elevate his lower extremities as much as possible, even during daytime hours. Elevation is to be accomplished to heart level, or higher. He is to avoid idle standing and sitting. Activity has been encouraged, such as walking, biking, swimming, jogging, etc. The benefits of activity have been thoroughly explained, including the recruitment of calf and foot muscle pumps. As the patient continues to recover from his recent lumbar disc surgery, and his activity level increases, there has been significant improvement in the swelling and edema in his lower extremities. He is now wearing graduated compression stockings of 20-30 mmHg compression, knee-high length, on a daily basis. He has responded quite nicely to the recommended conservative treatment measures, and is to be discharged at this time. Control of patient's weight has also been recommended. Patient stands 5 feet 9 inches tall. He weighs 210 pounds. His BMI is 31, which places him in the overweight category. Weight loss has been recommended, and the patient has been advised to collaborate with his primary care physician in this regard. The patient is not a smoker. Influenza vaccine was not administered today. Patient has started physical therapy, which will increase his level of activity following his recent back surgery, which will help to recruit the lower extremity muscle pumps, and assist in venous return.
== END 2017-06-18 23:59 ==
LOC: WC 13:00
PROVIDERS: Family Provider Family Medicine; PCP Family Medicine; Visit Provider Surgery
DX: R60.0 Localized edema (principal); M79.89 Other specified soft tissue disorders; K21.9 Gastro-esophageal reflux disease without esophagitis; M46.46 Discitis, unspecified, lumbar region; Z95.5 Presence of coronary angioplasty implant and graft; Z87.442 Personal history of urinary calculi; I25.10 Atherosclerotic heart disease of native coronary artery without angina pectoris; Z79.899 Other long term (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; Z79.82 Long term (current) use of aspirin
CPT/HCPCS: 99211; G0463

== ENCOUNTER → 2017-06-01 12:50 | Outpatient (CLI) | payer MEDICARE, SELFPAY ==
--- NOTE | 2017-06-01 12:52 | RAD_ITS ---
STUDY: X-RAY CHEST REASON FOR EXAM: Male, 71 years old. Wheezing and cough. TECHNIQUE: Frontal and lateral views of the chest. COMPARISON: CT of the chest 11/16/2016. FINDINGS: The lungs are clear and expanded. There is no demonstrated pleural abnormality. Normal size heart. Normal mediastinum and wendy. Normal visualized pulmonary arteries. Normal visualized aortic arch and descending thoracic aorta. Moderate hiatal hernia. There are diffuse degenerative changes of the visualized thoracic spine. Normal visualized ribs, clavicles, and shoulders. There is no demonstrated abnormality of the visualized soft tissue structures of the upper abdomen. RAD/Chest PA and Lateral IMPRESSION: No acute chest disease. Electronically Signed: Romaine Cano MD at 8:38 EDT , Service support ,
== END ==
PROVIDERS: Family Provider Family Medicine; PCP Family Medicine; Visit Provider Family Medicine
DX: R06.2 Wheezing (principal); R60.9 Edema, unspecified
CPT/HCPCS: 71046

== ENCOUNTER → 2017-06-20 13:58 | Outpatient (CLI) | payer MEDICARE, SELFPAY ==
[2017-06-20 15:36] LABS: Absolute Lymphocyte Count 1.19 X10^3/ul (0.83-4.51); Absolute Neutrophil Count 4.6 X10^3/uL (2.0-7.7); Basophil# 0.03 X10^3/uL; Basophil% 0.5 % (0-1); Eosinophil# 0.15 X10^3/uL; Eosinophils% 2.3 % (0-5); Hematocrit 34.2 % (40-54); Hemoglobin 10.8 g/dl (13.0-16.5); Lymphocyte # 1.19 X10^3/ul (4.0); Lymphocyte % 18.1 % (19-41); Mean Corp Hgb Conc 31.6 g/gl (32-36); Mean Corpuscular Hgb 33.5 pg (27.0-32.0); Mean Corpuscular Volume 106.2 fL (80-94); Monocyte# 0.59 X10^3/uL; Neutrophil % 69.9 % (47-70); Platelet Count 215 K/mm3 (150-450); RBC Distribution Width CV 16.2 % (11.6-14.6); RBC Distribution Width SD 62.7 fl (35.1-43.9); Red Blood Count 3.22 M/mm3 (4.6-6.2); White Blood Count 6.6 K/mm3 (4.4-11.0)
[2017-06-20 15:45] LABS: POSITIVE COUNT NO; POSITIVE DIFFERENTIAL NO; POSITIVE MORPHOLOGY NO
[2017-06-20 16:04] LABS: ALB/GLOB Ratio 0.9 RATIO (0.9-2.4); AST(SGOT) 24 U/L (15-37); Alanine Aminotransfer ALT/SGPT 25 U/L (16-61); Albumin, Serum 3.3 g/dL (3.2-5.0); Alkaline Phosphatase 113 U/L (45-117); Anion Gap 8 (5-15); BUN 18 mg/dL (7-18); BUN/Creat Ratio 14.3 RATIO (10-20); Calcium,Total 8.3 mg/dL (8.5-10.1); Chloride 108 mmol/L (98-107); Creatinine, Serum 1.26 mg/dL (0.70-1.30); EST Glomerular Filtration Rate 60 mL/min (>60); Est Glom Filt Rate - Afr Amer 72 mL/min (>60); Ferritin 33 ng/mL (26-388); Globulin 3.5 g/dL (2.2-4.2); Glucose 132 mg/dL (74-106); Iron 60 ug/dL (65-175); Potassium 4.3 mmol/L (3.5-5.1); Protein, Total 6.8 g/dL (6.4-8.2); Sodium Level 141 mmol/L (136-145)
[2017-06-20 17:19] LABS: BNP,B-Type NATRIURETIC PEPTIDE 37.5 pg/mL (0-100)
[2017-06-22 13:20] LABS: Pathologist Review Reviewed
== END ==
PROVIDERS: Family Provider Family Medicine; PCP Family Medicine; Visit Provider Family Medicine
DX: D64.9 Anemia, unspecified (principal); R06.00 Dyspnea, unspecified; R60.9 Edema, unspecified
CPT/HCPCS: 36415; 80053; 82728; 83540; 83880; 85025

== ENCOUNTER → 2017-07-01 15:23 | Outpatient (CLI) | payer MEDICARE, SELFPAY ==
[2017-07-01 17:36] LABS: AST(SGOT) 27 U/L (15-37); Alanine Aminotransfer ALT/SGPT 26 U/L (16-61); Albumin, Serum 3.5 g/dL (3.2-5.0); Alkaline Phosphatase 110 U/L (45-117); Anion Gap 8 (5-15); BUN 18 mg/dL (7-18); BUN/Creat Ratio 15.7 RATIO (10-20); Chloride 111 mmol/L (98-107); Creatinine, Serum 1.15 mg/dL (0.70-1.30); EST Glomerular Filtration Rate 66 mL/min (>60); Est Glom Filt Rate - Afr Amer 80 mL/min (>60); Ferritin 36 ng/mL (26-388); Globulin 3.4 g/dL (2.2-4.2); Glucose 96 mg/dL (74-106); Iron 65 ug/dL (65-175); Protein, Total 6.9 g/dL (6.4-8.2); Sodium Level 143 mmol/L (136-145)
[2017-07-01 17:47] LABS: Absolute Lymphocyte Count 1.38 X10^3/ul (0.83-4.51); Absolute Neutrophil Count 3.7 X10^3/uL (2.0-7.7); Basophil# 0.02 X10^3/uL; Basophil% 0.3 % (0-1); Eosinophil# 0.15 X10^3/uL; Eosinophils% 2.6 % (0-5); Hematocrit 34.5 % (40-54); Hemoglobin 10.9 g/dl (13.0-16.5); Lymphocyte # 1.38 X10^3/ul (4.0); Lymphocyte % 23.5 % (19-41); Mean Corp Hgb Conc 31.6 g/gl (32-36); Mean Corpuscular Volume 107.5 fL (80-94); Mean Platelet Vol. 9.3 fl (6.2-12.0); Monocyte# 0.63 X10^3/uL; Monocyte% 10.8 % (0-10); Neutrophil # 3.68 X10^3/uL (2.7-7.7); Neutrophil % 62.8 % (47-70); Platelet Count 257 K/mm3 (150-450); RBC Distribution Width CV 15.6 % (11.6-14.6); RBC Distribution Width SD 60.2 fl (35.1-43.9); Red Blood Count 3.21 M/mm3 (4.6-6.2); White Blood Count 5.9 K/mm3 (4.4-11.0)
[2017-07-01 17:50] LABS: POSITIVE COUNT NO; POSITIVE DIFFERENTIAL NO; POSITIVE MORPHOLOGY NO
== END ==
PROVIDERS: Family Provider Family Medicine; PCP Family Medicine; Visit Provider Family Medicine
DX: D64.9 Anemia, unspecified (principal); M46.90 Unspecified inflammatory spondylopathy, site unspecified; M17.0 Bilateral primary osteoarthritis of knee; M25.571 Pain in right ankle and joints of right foot; M75.40 Impingement syndrome of unspecified shoulder; M19.072 Primary osteoarthritis, left ankle and foot; M51.37 Other intervertebral disc degeneration, lumbosacral region; Z79.899 Other long term (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
CPT/HCPCS: 36415; 80053; 82728; 83540; 85025

== ENCOUNTER 2017-07-15 08:07 | Day surgery (SDC) | payer MEDICARE, SELFPAY ==
[2017-07-15] VITALS (8 sets, daily range): BP systolic 107–161; BP diastolic 57–82; PULSE 68–80; RESP 16; TEMP 36.2–37.3; O2SAT 96–100; BMI 31.1
--- NOTE | 2017-07-15 | GASB_PTH ---
PATIENT: IMAN ANDREA LOC: EN U#:[id number] AGE/SX: 72/M ROOM: RE07/15/[address]: Dr. Isaiah Freire MD : 1945 BED: DIS: 07/15/2017 SPEC #: [id number] RECD: 07/15/17 10:42 STATUS: GEOFF YARA #: [id number] LIAM: 07/15/17 00:[address]: Isaiah Freire DEPT: SURGICAL PATHOLOGY RECD BY: Wallace Mckenna ENTERED: 07/15/17 12:49 SP TYPE: Gastric Bx OTHR DR: Dr. Simon Willams MD Tissues: A - Gastrointestinal mucous membrane, NOS B - Esophageal mucous membrane C - Transverse colon Procedures: Surgery Specimen Level IV HEADER OPERATION: EGD, colonoscopy PRE-OP DIAGNOSIS: Anemia TISSUE SUBMITTED: A ? Antral biopsy for H. pylori and path, B ? Distal esophageal biopsy, C ? Distal transverse colon polyp MICROSCOPIC DIAGNOSIS A. Antral biopsy: Mild gastritis. See microscopic description and comment. B. Distal esophageal biopsy: Fragments of squamous epithelium, no pathologic diagnosis. C. Distal transverse colon polyp, biopsy: Fragments of tubular adenoma. SJ:ferdinand 07/18/17 COMMENT A. The results of immunohistochemistry for Helicobacter pylori will be reported separately ([id number]). MICROSCOPIC DESCRIPTION Slides are reviewed. A. The specimen shows fragments of gastric mucosa with chronic inflammatory cell infiltrates in the lamina propria consisting of lymphocytes and plasma cells, consistent with mild chronic gastritis. GROSS DESCRIPTION A - Received in fixative is one container labeled with the patient's name and designated antral biopsy. The specimen consists of two irregular fragments of light talavera soft tissue that in aggregate measure 0.5 x 0.2 x 0.1 cm. The specimen is totally submitted in one cassette. B - Received in fixative is one container labeled with the patient's name and designated distal esophagus. The specimen consists of multiple minute fragments of light talavera soft tissue that in aggregate measure 1 x 1 x <0.1 cm. The specimen is totally submitted in one cassette. C - Received in fixative is one container labeled with the patient's name and designated distal transverse colon polyp. The specimen consists of three irregular fragments of light talavera soft tissue that in aggregate measure 0.6 x 0.5 x 0.1 cm. The specimen is totally submitted in one cassette. / AM:ferdinand 07/15/17 TC:1 CPT: 48576 x3
--- NOTE | 2017-07-15 | IMM_PTH ---
PATIENT: IMAN ANDREA LOC: EN U#:[id number] AGE/SX: 72/M ROOM: RE07/15/[address]: Dr. Isaiah Freire MD : 1945 BED: DIS: 07/15/2017 SPEC #: [id number] RECD: 07/18/17 11:28 STATUS: GEOFF YARA #: [id number] LIAM: 07/15/17 00:[address]: Isaiah Freire DEPT: IMMUNOHISTOCHEMISTRY RECD BY: Bere Tiwari ENTERED: 07/18/17 11:29 SP TYPE: IMMUNO OTHR DR: Dr. Simon Willams MD Tissues: A - Stomach, NOS Procedures: H Pylori (initial) PHYSICIAN & INSTITUTION [place] [address] SPECIMEN INFORMATION: Tissue Source: A ? Antral biopsy Clinical Info: Anemia Specimen Number: [id number] CPT code: 07392 METHODOLOGY: Deparaffinized sections of prefer/formalin-fixed tissue or PAP/DQ stained slides are incubated with monoclonal/polyclonal antibodies/oligonucleotide probes. Localization is made via biotin free immunoperoxidase method. Appropriate controls are performed and reacted as expected. Results on target cell population are indicated in the following table: RESULTS: ANTIBODY / CLONE RESULT Block A H Pylori (polyclonal) negative These tests were developed and their performance characteristics determined by [facility]. They may not have been cleared or approved by the U.S. Food and Drug Administration. The FDA has determined that such clearance or approval is not necessary. INTERPRETATION: A. Antral biopsy: Negative for Helicobacter pylori organisms. SJ:ferdinand 07/19/17
--- NOTE | 2017-07-15 09:41 | PCM.OPRPT ---
Problem List (1) Anemia Status: Acute Qualifiers: Anemia type: unspecified type Qualified Code(s): D64.9 - Anemia, unspecified Report of Operation Date of Procedure: 07/15/17 Pre-Operative Diagnosis: Anemia, family history of colon cancer Post-Operative Diagnosis: Hiatal hernia, minimal antral erythema. Small polyp of the distal transverse colon, diverticulosis, internal hemorrhoids Surgery/Procedure Performed:: Esophagogastroduodenoscopy with antral and distal esophageal biopsies. Colonoscopy with snare polypectomy Description of Surgical Findings:: Timeout and informed consent was obtained. 72-year-old gentleman was taken to the endoscopy suite. His oropharynx anesthetized with Cetacaine. Because of medical comorbidities he underwent monitored anesthesia care. Flexible gastroscope was inserted into the esophageal inlet. Was advanced without difficulty. Proximal mid distal esophagus identified. A moderately large hiatal hernia noted. EG junction was at 35 cm. Very slight evidence of inflammation at that junction. Photographs were obtained. The scope was advanced in the stomach where a very minimal amount of erythema of the antrum was noted. The scope was advanced through the pylorus first and second portion the duodenum were inspected that was not remarkable. The scope was drawn back to the stomach retroflexed the EG junction and cardia was inspected. The hiatal hernia noted and photographs obtained. There was no evidence of any active bleeding. The scope was placed back in antegrade viewing position. Greater and lesser curvatures were carefully inspected. The scope was advanced back down to the antrum where biopsy was obtained for histopathology and H. pylori. Excess fluid and air was aspirated free the scope was withdrawn to the distal esophagus were distal esophageal biopsies were obtained. The scope was further withdrawn without additional abnormality. Digital rectal exam was performed. Moderate internal hemorrhoids noted slightly lax tone 2+ with prostate the flexible colonoscope then advanced with a somewhat tortuous sigmoid colon extensively involved with diverticulosis the scope was then advanced to the transverse colon and by placing the patient supine and with transabdominal pressure the scope was advanced to the cecum. The cecum and ileocecal valve was nicely achieved. Bowel prep was good with some liquid stool located throughout the colon but this could be aspirated. The scope was carefully withdrawn from the ascending and transverse colon without signs of source of blood loss. In the distal transverse colon there was a sessile 8 mm diameter polyp. This was snare cautery resected and retrieved. The scope was then further withdrawn the descending colon rather elongated there was extensive diverticulosis of the sigmoid and descending colon. No evidence of any active bleeding. The scope was retroflexed within the rectum and quite exuberant grade 3 internal hemorrhoids noted but again no active bleeding. Excess fluid and air was aspirated free was completed with it and tolerating it well. Impression Moderately large hiatal hernia. Minimal findings consistent with distal esophagitis. Minimal findings consistent with gastritis. No source of GI bleeding. Small sessile polyp in the distal transverse colon. Extensive descending and sigmoid diverticulosis. Grade 3 internal hemorrhoids. No current active source of GI blood loss. Patient's previous colonoscopy was February 21, 2014. Next screening colonoscopy recommended in 5 years based upon polyp and family history of colon cancer. The patient will be notified of pathology results as they become available. No source for blood loss identified. The patient will continue to follow up with his primary care physician Dr. Simon Willmas. Upper endoscopy was initiated at 0914. It was completed at 0919. The colonoscopy was initiated at 0923. The cecum was reached at 0929. The procedure was completed at 0937. Isaiah Freire M.D., F.A.C.S. Type of Anesthesia:: MAC
== END 2017-07-15 11:20 | disposition home or self-care (01) ==
LOC: EN 08:08 → AC 08:09
PROVIDERS: Family Provider Family Medicine; PCP Family Medicine; Visit Provider Surgery
PROC: 0DJD8ZZ Inspection of Lower Intestinal Tract, Via Natural or Artificial Opening Endoscopic (ICD-10-PCS; CPT 45378; principal; 2017-07-15 08:55)
DX: D12.4 Benign neoplasm of descending colon (principal); K57.30 Diverticulosis of large intestine without perforation or abscess without bleeding; K29.50 Unspecified chronic gastritis without bleeding; K21.0 Gastro-esophageal reflux disease with esophagitis; K44.9 Diaphragmatic hernia without obstruction or gangrene; K64.2 Third degree hemorrhoids; D50.0 Iron deficiency anemia secondary to blood loss (chronic); K56.2 Volvulus; Z87.19 Personal history of other diseases of the digestive system; Z80.0 Family history of malignant neoplasm of digestive organs; I25.10 Atherosclerotic heart disease of native coronary artery without angina pectoris; I10 Essential (primary) hypertension; J44.9 Chronic obstructive pulmonary disease, unspecified; M06.9 Rheumatoid arthritis, unspecified; E78.00 Pure hypercholesterolemia, unspecified; N40.0 Benign prostatic hyperplasia without lower urinary tract symptoms; Z98.61 Coronary angioplasty status; Z79.82 Long term (current) use of aspirin; Z79.899 Other long term (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
CPT/HCPCS: 43239; 45385; 88305; 88342; J7120

== ENCOUNTER → 2017-07-25 16:29 | Outpatient (CLI) | payer MEDICARE, SELFPAY ==
[2017-07-25 17:38] LABS: Absolute Lymphocyte Count 1.11 X10^3/ul (0.83-4.51); Absolute Neutrophil Count 3.4 X10^3/uL (2.0-7.7); Basophil# 0.01 X10^3/uL; Basophil% 0.2 % (0-1); Eosinophil# 0.11 X10^3/uL; Eosinophils% 2.1 % (0-5); Hematocrit 34.1 % (40-54); Lymphocyte # 1.11 X10^3/ul (4.0); Lymphocyte % 21.3 % (19-41); Mean Corp Hgb Conc 32.3 g/gl (32-36); Mean Corpuscular Hgb 34.4 pg (27.0-32.0); Mean Corpuscular Volume 106.6 fL (80-94); Monocyte# 0.58 X10^3/uL; Monocyte% 11.2 % (0-10); Neutrophil # 3.38 X10^3/uL (2.7-7.7); Platelet Count 199 K/mm3 (150-450); RBC Distribution Width CV 14.9 % (11.6-14.6); RBC Distribution Width SD 57.3 fl (35.1-43.9); White Blood Count 5.2 K/mm3 (4.4-11.0)
[2017-07-25 17:50] LABS: Ferritin 24 ng/mL (26-388); Iron 51 ug/dL (65-175)
[2017-07-25 17:55] LABS: POSITIVE COUNT NO; POSITIVE DIFFERENTIAL NO; POSITIVE MORPHOLOGY NO
[2017-07-25 18:01] LABS: Vitamin B12 331 pg/mL (211-911)
== END ==
PROVIDERS: Family Provider Family Medicine; PCP Family Medicine; Visit Provider Family Medicine
DX: D64.9 Anemia, unspecified (principal)
CPT/HCPCS: 36415; 82607; 82728; 83540; 85025

== ENCOUNTER → 2017-08-01 09:27 | Outpatient (CLI) | payer MEDICARE, SELFPAY ==
--- NOTE | 2017-08-01 09:33 | US_ITS ---
STUDY: ABDOMINAL ULTRASOUND REASON FOR EXAM: Male, 72 years old. History of anemia. Possible retroperitoneal hemorrhage. TECHNIQUE: Transabdominal ultrasound was performed with real-time and static alejo scale imaging. TECHNICAL QUALITY: Limited. Examination limited by bowel gas. COMPARISON: None. FINDINGS: Liver: The liver measures 11.9 cm. There is increased echogenicity consistent with fatty infiltration. The bile ducts are within normal limits. There is hepatic color flow. The direction of portal flow is hepatopetal. There is no demonstrated mass lesion. Portal vein measurement: Gallbladder: The patient is status post cholecystectomy. Common Bile Duct (C.B.D.): The common bile duct measures 5.0 mm. Pancreas: Normal size of the head, body and tail of the pancreas. There is normal echogenicity of the pancreas. There is no demonstrated pancreatic mass or cyst. Spleen: Normal size of the spleen. The spleen measures 11.2 cm x 4.9 cm x 3.8 cm. Right Kidney: There is atrophy of the right kidney. The right kidney measures 8.2 cm x 3.6 cm x 3.8 cm. Normal renal cortex. The right cortex measures 1.0 cm. There is no demonstrated renal mass or cyst. There is no right hydronephrosis. Left Kidney: Normal size of the left kidney. The left kidney measures 13.0 cm x 5.8 cm x 6.0 cm. Normal renal cortex. The left cortex measures 1.9 cm. There is a 2.2 cm x 2.0 cm x 2.3 cm cyst in the mid medial portion of the kidney. There is no left hydronephrosis. Aorta: Atherosclerotic changes. I.V.C.: The IVC is patent. There is no ascites. US/Abdomen Complete IMPRESSION: Fatty infiltration of the liver. Mild atrophy of the right kidney. Left renal cyst. There is no evidence of retroperitoneal hemorrhage. Electronically Signed: Sundeep Miller MD at 15:53 EDT Tel [phone], Service support ,
== END ==
PROVIDERS: Family Provider Family Medicine; PCP Family Medicine; Visit Provider Family Medicine
DX: D50.9 Iron deficiency anemia, unspecified (principal); K76.0 Fatty (change of) liver, not elsewhere classified; N26.1 Atrophy of kidney (terminal)
CPT/HCPCS: 76700

== ENCOUNTER → 2017-08-02 12:58 | Outpatient (CLI) | payer MEDICARE, SELFPAY ==
--- NOTE | 2017-08-02 16:20 | PFT_ITS ---
PULMONARY FUNCTION TEST RESULTS SPIROMETRY: Normal Spirometry. No significant measurable clinical response to Beta Agonist. LUNG VOLUMES: Normal lung volumes. DIFFUSION: Mild gas transfer abnormality. Abnormal gas transfer that corrects for measured alveolar volume.
== END ==
PROVIDERS: Family Provider Family Medicine; PCP Family Medicine; Visit Provider Family Medicine
DX: G47.33 Obstructive sleep apnea (adult) (pediatric) (principal); R06.2 Wheezing; R06.00 Dyspnea, unspecified
CPT/HCPCS: 94060; 94726; 94729

== ENCOUNTER → 2017-08-16 11:20 | Outpatient (CLI) | payer MEDICARE, SELFPAY ==
[2017-08-16 16:23] LABS: Anion Gap 10 (5-15); BUN 20 mg/dL (7-18); Calcium,Total 8.6 mg/dL (8.5-10.1); Chloride 109 mmol/L (98-107); Creatinine, Serum 1.33 mg/dL (0.70-1.30); EST Glomerular Filtration Rate 56 mL/min (>60); Est Glom Filt Rate - Afr Amer 68 mL/min (>60); Ferritin 46 ng/mL (26-388); Glucose 105 mg/dL (74-106); Iron 263 ug/dL (65-175); Potassium 4.2 mmol/L (3.5-5.1); Sodium Level 143 mmol/L (136-145)
[2017-08-16 18:11] LABS: Absolute Lymphocyte Count 1.07 X10^3/ul (0.83-4.51); Absolute Neutrophil Count 4.6 X10^3/uL (2.0-7.7); Basophil# 0.02 X10^3/uL; Basophil% 0.3 % (0-1); Eosinophil# 0.12 X10^3/uL; Eosinophils% 1.9 % (0-5); Hematocrit 36.7 % (40-54); Hemoglobin 11.7 g/dl (13.0-16.5); Lymphocyte # 1.07 X10^3/ul (4.0); Lymphocyte % 16.6 % (19-41); Mean Corp Hgb Conc 31.9 g/gl (32-36); Mean Corpuscular Hgb 33.9 pg (27.0-32.0); Mean Corpuscular Volume 106.4 fL (80-94); Mean Platelet Vol. 9.5 fl (6.2-12.0); Monocyte# 0.61 X10^3/uL; Monocyte% 9.5 % (0-10); Neutrophil % 71.5 % (47-70); POSITIVE COUNT NO; POSITIVE DIFFERENTIAL NO; POSITIVE MORPHOLOGY NO; Platelet Count 209 K/mm3 (150-450); RBC Distribution Width CV 15.2 % (11.6-14.6); RBC Distribution Width SD 59.3 fl (35.1-43.9); Red Blood Count 3.45 M/mm3 (4.6-6.2); White Blood Count 6.4 K/mm3 (4.4-11.0)
== END ==
PROVIDERS: Family Provider Family Medicine; PCP Family Medicine; Visit Provider Family Medicine
DX: D50.9 Iron deficiency anemia, unspecified (principal)
CPT/HCPCS: 36415; 80048; 82728; 83540; 85025

== ENCOUNTER → 2017-09-23 11:22 | Outpatient (CLI) | payer MEDICARE, SELFPAY ==
[2017-09-23 12:18] LABS: Absolute Lymphocyte Count 1.19 X10^3/ul (0.83-4.51); Absolute Neutrophil Count 3.6 X10^3/uL (2.0-7.7); Basophil# 0.01 X10^3/uL; Basophil% 0.2 % (0-1); Eosinophil# 0.14 X10^3/uL; Eosinophils% 2.6 % (0-5); Hematocrit 36.9 % (40-54); Hemoglobin 12.3 g/dl (13.0-16.5); Lymphocyte # 1.19 X10^3/ul (4.0); Lymphocyte % 21.8 % (19-41); Mean Corp Hgb Conc 33.3 g/gl (32-36); Mean Corpuscular Hgb 35.4 pg (27.0-32.0); Mean Corpuscular Volume 106.3 fL (80-94); Mean Platelet Vol. 9.5 fl (6.2-12.0); Monocyte# 0.56 X10^3/uL; Monocyte% 10.3 % (0-10); Neutrophil # 3.55 X10^3/uL (2.7-7.7); Neutrophil % 64.9 % (47-70); Platelet Count 212 K/mm3 (150-450); RBC Distribution Width CV 14.2 % (11.6-14.6); RBC Distribution Width SD 54.2 fl (35.1-43.9); Red Blood Count 3.47 M/mm3 (4.6-6.2); White Blood Count 5.5 K/mm3 (4.4-11.0)
[2017-09-23 12:24] LABS: POSITIVE COUNT NO; POSITIVE DIFFERENTIAL NO; POSITIVE MORPHOLOGY NO
[2017-09-23 12:50] LABS: AST(SGOT) 26 U/L (15-37); Alanine Aminotransfer ALT/SGPT 32 U/L (16-61); Albumin, Serum 3.6 g/dL (3.2-5.0); Alkaline Phosphatase 105 U/L (45-117); Anion Gap 9 (5-15); BUN 15 mg/dL (7-18); BUN/Creat Ratio 12.7 RATIO (10-20); Calcium,Total 8.8 mg/dL (8.5-10.1); Chloride 111 mmol/L (98-107); Creatinine, Serum 1.18 mg/dL (0.70-1.30); EST Glomerular Filtration Rate 64 mL/min (>60); Est Glom Filt Rate - Afr Amer 78 mL/min (>60); Globulin 3.6 g/dL (2.2-4.2); Glucose 103 mg/dL (74-106); Protein, Total 7.2 g/dL (6.4-8.2); Sodium Level 144 mmol/L (136-145)
== END ==
PROVIDERS: Family Provider Family Medicine; PCP Family Medicine; Visit Provider Family Medicine
DX: D50.9 Iron deficiency anemia, unspecified (principal); M46.90 Unspecified inflammatory spondylopathy, site unspecified
CPT/HCPCS: 36415; 80053; 85025

== ENCOUNTER → 2017-11-08 15:53 | Outpatient (CLI) | payer MEDICARE, SELFPAY ==
[2017-11-08 17:40] LABS: Absolute Lymphocyte Count 1.17 X10^3/ul (0.83-4.51); Absolute Neutrophil Count 5.4 X10^3/uL (2.0-7.7); Basophil# 0.02 X10^3/uL; Basophil% 0.3 % (0-1); Eosinophil# 0.15 X10^3/uL; Eosinophils% 2.1 % (0-5); Hematocrit 38.9 % (40-54); Hemoglobin 12.8 g/dl (13.0-16.5); Lymphocyte # 1.17 X10^3/ul (4.0); Mean Corp Hgb Conc 32.9 g/gl (32-36); Mean Corpuscular Hgb 35.8 pg (27.0-32.0); Mean Corpuscular Volume 108.7 fL (80-94); Mean Platelet Vol. 9.2 fl (6.2-12.0); Monocyte# 0.56 X10^3/uL; Monocyte% 7.7 % (0-10); Neutrophil % 73.8 % (47-70); POSITIVE COUNT NO; POSITIVE DIFFERENTIAL NO; POSITIVE MORPHOLOGY NO; Partial Thromboplast Time 26.8 Seconds (24.1-36.2); Platelet Count 190 K/mm3 (150-450); Prothrombin Time (Protime)PT. 13.6 SECONDS (11.7-14.9); RBC Distribution Width SD 54.3 fl (35.1-43.9); Red Blood Count 3.58 M/mm3 (4.6-6.2); White Blood Count 7.3 K/mm3 (4.4-11.0)
[2017-11-08 17:48] LABS: Anion Gap 6 (5-15); BUN 20 mg/dL (7-18); BUN/Creat Ratio 14.8 RATIO (10-20); Calcium,Total 8.5 mg/dL (8.5-10.1); Chloride 108 mmol/L (98-107); Creatinine, Serum 1.35 mg/dL (0.70-1.30); EST Glomerular Filtration Rate 55 mL/min (>60); Est Glom Filt Rate - Afr Amer 66 mL/min (>60); Glucose 119 mg/dL (74-106); Sodium Level 141 mmol/L (136-145)
== END ==
PROVIDERS: Family Provider Family Medicine; PCP Family Medicine; Visit Provider Internal Medicine Cardiovascular Disease
DX: I25.10 Atherosclerotic heart disease of native coronary artery without angina pectoris (principal); E78.5 Hyperlipidemia, unspecified; R06.02 Shortness of breath
CPT/HCPCS: 36415; 71046; 80048; 85025; 85610; 85730

== ENCOUNTER 2017-11-15 10:00 | Day surgery (SDC) | payer MEDICARE, SELFPAY ==
[2017-11-14 13:57] VITALS: BMI 31.6
[2017-11-16 10:16] LABS: Base Excess -2 mmol/L (-2 to +2); Bicarbonate 23.2 mmol/L (22-26); Blood Gas Specimen Type ART; PO2 74 mmHG (75-100); SO2 94 % (95-99); Total Carbon Dioxide 24 mmol/L; pCO2 39.9 mmHg (35-45); pH 7.37 (7.35-7.45)
[2017-11-16 10:16] LABS: Blood Gas Specimen Type VEN; VBG BASE EXCESS -2 mmol/L (-1.0-3.5); VBG Bicarbonate 23 mmol/L (22-26); VBG Oxygen Content 25 mmol/L (23-33); VBG PO2 46 mmHg (25-40); VBG SO2 81 % (50-70); VBG pCO2 39.8 mmHg (41-51); VBG pH 7.38 (7.32-7.42)
[2017-11-16 10:16] LABS: Blood Gas Specimen Type VEN; VBG BASE EXCESS -2 mmol/L (-1.0-3.5); VBG Bicarbonate 24 mmol/L (22-26); VBG Oxygen Content 25 mmol/L (23-33); VBG PO2 38 mmHg (25-40); VBG SO2 70 % (50-70); VBG pCO2 42.6 mmHg (41-51); VBG pH 7.36 (7.32-7.42)
[2017-11-16 10:16] LABS: Blood Gas Specimen Type VEN; VBG BASE EXCESS -2 mmol/L (-1.0-3.5); VBG Bicarbonate 24 mmol/L (22-26); VBG Oxygen Content 25 mmol/L (23-33); VBG PO2 40 mmHg (25-40); VBG SO2 72 % (50-70); VBG pCO2 42.5 mmHg (41-51); VBG pH 7.35 (7.32-7.42)
== END 2017-11-15 16:02 | disposition home or self-care (01) ==
PROVIDERS: Family Provider Family Medicine; PCP Family Medicine; Visit Provider Internal Medicine Cardiovascular Disease
DX: I25.10 Atherosclerotic heart disease of native coronary artery without angina pectoris (principal); E78.5 Hyperlipidemia, unspecified; Z98.61 Coronary angioplasty status; I10 Essential (primary) hypertension; R06.02 Shortness of breath; M06.9 Rheumatoid arthritis, unspecified; N40.0 Benign prostatic hyperplasia without lower urinary tract symptoms; E11.9 Type 2 diabetes mellitus without complications; G47.33 Obstructive sleep apnea (adult) (pediatric); Z79.82 Long term (current) use of aspirin; Z79.899 Other long term (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
CPT/HCPCS: 82803; 93460; 99152; 99153; J7040; Q9967; C1751; C1769; C1894

== ENCOUNTER → 2017-12-05 08:04 | Outpatient (CLI) | payer MEDICARE, SELFPAY ==
[2017-12-05 12:05] LABS: Absolute Lymphocyte Count 1.42 X10^3/ul (0.83-4.51); Absolute Neutrophil Count 3.4 X10^3/uL (2.0-7.7); Basophil# 0.02 X10^3/uL; Basophil% 0.3 % (0-1); Eosinophil# 0.21 X10^3/uL; Eosinophils% 3.6 % (0-5); Hematocrit 38.5 % (40-54); Hemoglobin 12.1 g/dl (13.0-16.5); Lymphocyte # 1.42 X10^3/ul (4.0); Lymphocyte % 24.4 % (19-41); Mean Corp Hgb Conc 31.4 g/gl (32-36); Mean Corpuscular Hgb 34.2 pg (27.0-32.0); Mean Corpuscular Volume 108.8 fL (80-94); Mean Platelet Vol. 9.7 fl (6.2-12.0); Monocyte# 0.73 X10^3/uL; Monocyte% 12.5 % (0-10); Neutrophil # 3.44 X10^3/uL (2.7-7.7); Platelet Count 198 K/mm3 (150-450); RBC Distribution Width CV 14.2 % (11.6-14.6); RBC Distribution Width SD 56.5 fl (35.1-43.9); Red Blood Count 3.54 M/mm3 (4.6-6.2); White Blood Count 5.8 K/mm3 (4.4-11.0)
[2017-12-05 12:07] LABS: POSITIVE COUNT NO; POSITIVE DIFFERENTIAL NO; POSITIVE MORPHOLOGY NO
[2017-12-05 12:28] LABS: AST(SGOT) 24 U/L (15-37); Alanine Aminotransfer ALT/SGPT 29 U/L (16-61); Albumin, Serum 3.5 g/dL (3.2-5.0); Alkaline Phosphatase 105 U/L (45-117); Anion Gap 9 (5-15); BUN 21 mg/dL (7-18); BUN/Creat Ratio 17.5 RATIO (10-20); Calcium,Total 8.2 mg/dL (8.5-10.1); Chloride 106 mmol/L (98-107); EST Glomerular Filtration Rate 63 mL/min (>60); Est Glom Filt Rate - Afr Amer 76 mL/min (>60); Ferritin 48 ng/mL (26-388); Globulin 3.4 g/dL (2.2-4.2); Glucose 70 mg/dL (74-106); Iron 42 ug/dL (65-175); Protein, Total 6.9 g/dL (6.4-8.2); Sodium Level 141 mmol/L (136-145)
[2017-12-05 12:34] LABS: Vitamin B12 371 pg/mL (211-911)
[2017-12-05 15:13] LABS: Bacteria 0 SEEN /hpf (None Seen); Mucous, Urine 0 SEEN /hpf (<or=2+)
[2017-12-05 15:37] LABS: Absolute Lymphocyte Count 1.11 X10^3/ul (0.83-4.51); Absolute Neutrophil Count 5.2 X10^3/uL (2.0-7.7); Basophil# 0.02 X10^3/uL; Basophil% 0.3 % (0-1); Eosinophil# 0.16 X10^3/uL; Eosinophils% 2.2 % (0-5); Hematocrit 38.7 % (40-54); Hemoglobin 12.8 g/dl (13.0-16.5); Lymphocyte # 1.11 X10^3/ul (4.0); Lymphocyte % 15.6 % (19-41); Mean Corp Hgb Conc 33.1 g/gl (32-36); Mean Corpuscular Hgb 35.7 pg (27.0-32.0); Mean Corpuscular Volume 107.8 fL (80-94); Mean Platelet Vol. 9.5 fl (6.2-12.0); Monocyte# 0.62 X10^3/uL; Monocyte% 8.7 % (0-10); Neutrophil # 5.19 X10^3/uL (2.7-7.7); Neutrophil % 72.9 % (47-70); Platelet Count 192 K/mm3 (150-450); RBC Distribution Width CV 13.6 % (11.6-14.6); RBC Distribution Width SD 52.6 fl (35.1-43.9); Red Blood Count 3.59 M/mm3 (4.6-6.2); White Blood Count 7.1 K/mm3 (4.4-11.0)
[2017-12-05 15:38] LABS: POSITIVE COUNT NO; POSITIVE DIFFERENTIAL NO; POSITIVE MORPHOLOGY NO
[2017-12-05 15:47] LABS: ALB/GLOB Ratio 1.1 RATIO (0.9-2.4); AST(SGOT) 24 U/L (15-37); Alanine Aminotransfer ALT/SGPT 26 U/L (16-61); Albumin, Serum 3.6 g/dL (3.2-5.0); Alkaline Phosphatase 105 U/L (45-117); Anion Gap 6 (5-15); BUN 23 mg/dL (7-18); BUN/Creat Ratio 18.3 RATIO (10-20); Calcium,Total 8.5 mg/dL (8.5-10.1); Chloride 109 mmol/L (98-107); Creatinine, Serum 1.26 mg/dL (0.70-1.30); EST Glomerular Filtration Rate 59 mL/min (>60); Est Glom Filt Rate - Afr Amer 72 mL/min (>60); Globulin 3.4 g/dL (2.2-4.2); Glucose 132 mg/dL (74-106); Potassium 4.1 mmol/L (3.5-5.1); Sodium Level 140 mmol/L (136-145)
[2017-12-05 17:24] LABS: Color, Urine Yellow (Yellow); Glucose, Dipstick Normal (Normal); Ketone-Dipstick Negative (Negative); Leukocyte Esterase-Dipstick Negative /ul (Negative); Nitrite-Dipstick Negative (Negative); Occult Blood-Urine Negative /ul (Negative); Protein-Dipstick 30 mg/dl (Negative); Specific Gravity, Urine 1.015 (1.002-1.030); Urine Bilirubin Dipstick Negative (Negative); Urine Clarity Clear (Clear); Urine Urobilinogen Normal (Normal); Urine pH 6.5 (5.0 - 8.0)
[2017-12-05 17:37] LABS: Red Blood Cells-Urine 0-5 SEEN /hpf (0-5); Squamous Epithelial Cells - UA 5-10 SEEN /hpf (0-5); White Blood Cells 0-5 SEEN /hpf (0-5)
== END ==
PROVIDERS: Family Provider Family Medicine; PCP Family Medicine; Visit Provider Internal Medicine Rheumatology
DX: D50.9 Iron deficiency anemia, unspecified (principal); M06.9 Rheumatoid arthritis, unspecified; R06.00 Dyspnea, unspecified; M46.90 Unspecified inflammatory spondylopathy, site unspecified; M17.0 Bilateral primary osteoarthritis of knee; M25.571 Pain in right ankle and joints of right foot; M19.072 Primary osteoarthritis, left ankle and foot; M75.40 Impingement syndrome of unspecified shoulder; M51.37 Other intervertebral disc degeneration, lumbosacral region; I10 Essential (primary) hypertension; N20.0 Calculus of kidney; I70.90 Unspecified atherosclerosis; G47.33 Obstructive sleep apnea (adult) (pediatric); I87.2 Venous insufficiency (chronic) (peripheral); Z86.711 Personal history of pulmonary embolism; Z79.899 Other long term (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
CPT/HCPCS: 36415; 80053; 81001; 82607; 82728; 83540; 85025

== ENCOUNTER → 2018-02-27 14:12 | Outpatient (CLI) | payer MEDICARE, SELFPAY ==
[2018-02-27 15:42] LABS: Absolute Lymphocyte Count 1.11 X10^3/ul (0.83-4.51); Absolute Neutrophil Count 4.3 X10^3/uL (2.0-7.7); Basophil# 0.02 X10^3/uL; Basophil% 0.3 % (0-1); Eosinophil# 0.12 X10^3/uL; Eosinophils% 1.9 % (0-5); Hematocrit 38.6 % (40-54); Hemoglobin 12.6 g/dl (13.0-16.5); Lymphocyte # 1.11 X10^3/ul (4.0); Lymphocyte % 17.9 % (19-41); Mean Corp Hgb Conc 32.6 g/gl (32-36); Mean Corpuscular Hgb 35.1 pg (27.0-32.0); Mean Corpuscular Volume 107.5 fL (80-94); Mean Platelet Vol. 9.7 fl (6.2-12.0); Monocyte# 0.64 X10^3/uL; Monocyte% 10.3 % (0-10); Neutrophil # 4.29 X10^3/uL (2.7-7.7); Neutrophil % 69.4 % (47-70); Platelet Count 189 K/mm3 (150-450); RBC Distribution Width CV 13.3 % (11.6-14.6); RBC Distribution Width SD 51.7 fl (35.1-43.9); Red Blood Count 3.59 M/mm3 (4.6-6.2); White Blood Count 6.2 K/mm3 (4.4-11.0)
[2018-02-27 16:07] LABS: ALB/GLOB Ratio 1.1 RATIO (0.9-2.4); AST(SGOT) 26 U/L (15-37); Alanine Aminotransfer ALT/SGPT 26 U/L (16-61); Albumin, Serum 3.5 g/dL (3.2-5.0); Alkaline Phosphatase 106 U/L (45-117); Anion Gap 10 (5-15); BUN 17 mg/dL (7-18); BUN/Creat Ratio 14.5 RATIO (10-20); CRP, High Sensitivity Cardiac 2.85 mg/L; Chloride 109 mmol/L (98-107); Creatinine, Serum 1.17 mg/dL (0.70-1.30); EST Glomerular Filtration Rate 65 mL/min (>60); Est Glom Filt Rate - Afr Amer 78 mL/min (>60); Ferritin 35 ng/mL (26-388); Globulin 3.2 g/dL (2.2-4.2); Glucose 83 mg/dL (74-106); Iron 116 ug/dL (65-175); Potassium 4.2 mmol/L (3.5-5.1); Protein, Total 6.7 g/dL (6.4-8.2); Sodium Level 143 mmol/L (136-145); T4 Free Direct 0.68 ng/dL (0.76-1.46); Thyroid Stim Hormone (TSH) 4.65 uIU/mL (0.358-3.74)
[2018-02-27 16:08] LABS: POSITIVE COUNT NO; POSITIVE DIFFERENTIAL NO; POSITIVE MORPHOLOGY NO
[2018-02-27 16:13] LABS: Erythrocyte Sedimentation Rate 10 mm/hr (0-20)
== END ==
PROVIDERS: PCP Internal Medicine Rheumatology; Visit Provider Family Medicine
DX: D50.9 Iron deficiency anemia, unspecified (principal); M46.90 Unspecified inflammatory spondylopathy, site unspecified; M17.0 Bilateral primary osteoarthritis of knee; M25.571 Pain in right ankle and joints of right foot; M75.40 Impingement syndrome of unspecified shoulder; M19.072 Primary osteoarthritis, left ankle and foot; M51.37 Other intervertebral disc degeneration, lumbosacral region; M62.81 Muscle weakness (generalized); R60.9 Edema, unspecified; R06.00 Dyspnea, unspecified; Z79.899 Other long term (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
CPT/HCPCS: 36415; 80053; 82728; 83540; 84439; 84443; 85025; 85652; 86141

== ENCOUNTER → 2018-03-27 15:47 | Outpatient (CLI) | payer MEDICARE, SELFPAY ==
[2017-11-14 13:57] VITALS: BMI 31.6
== END ==
PROVIDERS: Family Provider Family Medicine; PCP Family Medicine; Visit Provider Family Medicine
DX: N39.0 Urinary tract infection, site not specified (principal)
CPT/HCPCS: 87086

== ENCOUNTER → 2018-04-10 14:10 | Outpatient (CLI) | payer MEDICARE, SELFPAY ==
[2018-04-10 17:00] LABS: Anion Gap 10 (5-15); BUN 16 mg/dL (7-18); BUN/Creat Ratio 13.7 RATIO (10-20); Calcium,Total 8.4 mg/dL (8.5-10.1); Chloride 111 mmol/L (98-107); Creatinine, Serum 1.17 mg/dL (0.70-1.30); EST Glomerular Filtration Rate 65 mL/min (>60); Est Glom Filt Rate - Afr Amer 78 mL/min (>60); Glucose 88 mg/dL (74-106); Sodium Level 143 mmol/L (136-145); T4 Free Direct 0.79 ng/dL (0.76-1.46); Thyroid Stim Hormone (TSH) 2.14 uIU/mL (0.358-3.74)
--- OUTSIDE RECORDS SUMMARY | 2018-06-13 02:13 | XMS RPT_ITS ---
:1945 Author Organization [facility] Address [address] [place] [address] [place] [address] Phone Care Team Providers Name Role Phone Jose Dunn MD Unavailable Reason for Visit Reason For Visit Description Start Date Postop - subsequent visit Preliminary reason for visit data, not yet signed by the author as of back post Laminectomy L4-5Fusion L4-5InstrumentationLocal BoneAllograft on 04/19/2017 Preliminary reason for visit data, not yet signed by the author as of Chief Complaint Chief Complaint Description Start Date back post Laminectomy L4-5Fusion L4-5InstrumentationLocal BoneAllograft on 04/19/2017 Preliminary chief complaint data, not yet signed by the author as of Instructions Instruction Description Start Date CompletedPlease follow-up with Primary Care Physician or Service Delivery Manager for treatment or adjustment of medication regarding elevated blood pressure.Patient advised to follow-up with Primary Care Physician for BMI management. Plan of Care Type Date Detail Appointment 08:10 AM Jose Dunn MD, [address] [facility], [email or web address], [place], [address], Appointment 08:10 AM Jose Dunn MD, [address] [facility], [email or web address], [place], [address], Pending order XR LUMBAR 2-3 VWS AP/LAT Patient education \cps-sql1\CPS_PtEducation\htn. pdf, Medications Medications Medication Instructions Start Stop Generic Name NDC Provider Date Date CEFADROXIL 500 MG Take 1 capsule CEFADROXIL [id number] Jose M CAPS by mouth twice Mona ACEVES a daily TRAMADOL HCL 50 MG take as TRAMADOL HCL 42790494637 Jose M TABS directed Mona ACEVES pain FUROSEMIDE 40 MG once daily FUROSEMIDE 38295233042 Carol TABS / D'Sol PA-C PROVIGIL 100 MG take 1 tab MODAFINIL 04688685909 Jose M TABS daily /15 Mona ACEVES METHOTREXATE 2.5 take 6 tabs METHOTREXATE 04930900997 Jose M MG TABS once a week / SODIUM Mona ACEVES PRAMIPEXOLE as directed PRAMIPEXOLE 39755903104 Terena Schulte DIHYDROCHLORIDE ER /14 DIHYDROCHLORIDE RN [id number] NITROSTAT SUBL as directed as NITROGLYCERIN 73420916513 Terena Schulte needed /14 SUBL RN TRAMADOL HCL 50 MG as directed TRAMADOL HCL 67114314296 Terena Schulte TABS /14 RN TAMSULOSIN HCL 0.4 daily as TAMSULOSIN HCL 86431139339 Terena Schulte MG CAPS directed RN OMEPRAZOLE 20 MG 1 tablet once OMEPRAZOLE 52459774570 Terena Schulte TBEC daily /14 RN METOPROLOL 1 tablet once METOPROLOL 22383275592 Terena Schulte SUCCINATE ER daily /14 SUCCINATE RN [id number] ENALAPRIL MALEATE 1 tablet twice ENALAPRIL MALEATE 70625005798 Terena Schulte 5 MG TABS daily /14 RN ASPIRIN 325 MG 1 tablet once ASPIRIN 28284933974 Terena Schulte TABS daily /14 RN ATORVASTATIN 1 tablet once ATORVASTATIN 97331572809 Terena Schulte CALCIUM 40 MG TABS daily /14 CALCIUM RN Conditions or Problems Problem Problem Onset Status Entry Provider Comment Standard Annotate Name Code Date Date Description S/P lumbar 59688619520 Active Carol History of Laminectomy fusion 106 (SNOMED 05/06 05/06 D'Sol lumbar fusion and fusion CT) PA-C L4-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 Carol 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, 5 mm, thesis, (SNOMED CT) 05/05 05/05 D'Sol is Grade 1 lumbar PA-C region Central 36062144 Active Jose M Spinal stenosis L4-5 spinal (SNOMED CT) 05/05 05/05 Mona ACEVES stenosis Lumbar 108196803 Active Jose M Lumbar radiculopat (SNOMED CT) 05/05 05/05 Mona ACEVES radiculopathy hy DDD 44314991 Active Jose M Degeneration of (degenerati (SNOMED CT) 05/05 05/05 Mona ACEVES lumbar ve disc intervertebral disease), disc lumbar Foraminal 82410666690 Active Jose M 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 Vital Signs Date Name Value Unit Description BMI (Body Mass 30.53 kg/m2 Body Mass Index Index) [Ratio] Preliminary vital sign data, not yet signed by the author as of BP Diastolic 88 mm[Hg] blood pressure, diastolic Preliminary vital sign data, not yet signed by the author as of BP Diastolic 88 mm[Hg] blood pressure, diastolic, second observation Preliminary vital sign data, not yet signed by the author as of BP Systolic 151 mm[Hg] blood pressure, systolic Preliminary vital sign data, not yet signed by the author as of BP Systolic 153 mm[Hg] blood pressure, systolic, second observation Preliminary vital sign data, not yet signed by the author as of Heart Rate 82 /min pulse rate E&M Preliminary vital sign data, not yet signed by the author as of Height 69 [in_us] height E&M Preliminary vital sign data, not yet signed by the author as of Height 175 cm height in centimeters E&M Preliminary vital sign data, not yet signed by the author as of Weight Measured 206 [lb_av] weight E&M Preliminary vital sign data, not yet signed by the author as of Weight Measured 94 kg weight in kilograms E&M Preliminary vital sign data, not yet signed by the author as of Results Date Name Value Unit Range Flag Description Office Visit: Postop - subsequent visit, Rm: 23 MEDS REVIEW Done Documentation of current medications (procedure) Preliminary observation data, not yet signed by the author as of Preliminary observation data, not yet signed by the author as of Clinical Summary: HMSPatientID OOP account number Procedures Code Procedure Name Date Entry Date G8730 Pain assessment documented as positive - follow-up documented G8427 Current medications documented 1036F Tobacco screening was negative - non user G8417 BMI documented as above normal parameters - follow-up documented G8950 Blood pressure outside of normal parameters - follow-up documented [id number] Patient Encounter Medications Administered No information available. Immunizations No information available. Advance Directives There may be information available, but it has not been provided by the sender. Assessments There may be information available, but it has not been provided by the sender. Review of Systems There may be information available, but it has not been provided by the sender. Family History There may be information available, but it has not been provided by the sender. History of Past Illness There may be information available, but it has not been provided by the sender. History of Present Illness There may be information available, but it has not been provided by the sender.
--- OUTSIDE RECORDS SUMMARY | 2018-06-13 02:14 | XMS RPT_ITS ---
:1945 Author Organization OHIP Support Name Relationship Address Phone EMMY ANDREA Unavailable [address] + [place] [address] R Unavailable Unavailable Unavailable ANDREA, EMMY Unavailable [address] + [place] [address] R Unavailable Unavailable Unavailable ANDREA, EMMY Unavailable [address] + [place] [address] R Unavailable Unavailable Unavailable ANDREA, EMMY Unavailable [address] + [place] [address] R Unavailable Unavailable Unavailable ANDREA, EMMY Unavailable [address] + [place] [address] R Unavailable Unavailable Unavailable ANDREA, EMMY Unavailable [address] + [place] [address] R Unavailable Unavailable Unavailable ANDREA, EMMY Unavailable [address] + [place] [address] R Unavailable Unavailable Unavailable ANDREA, EMMY Unavailable [address] + [place] [address] R Unavailable Unavailable Unavailable ANDREA, EMMY Unavailable [address] + [place] [address] R Unavailable Unavailable Unavailable ANDREA, EMMY Unavailable [address] + [place] [address] R Unavailable Unavailable Unavailable ANDREA, EMMY Unavailable [address] + [place] [address] R Unavailable Unavailable Unavailable ANDREA, EMMY Unavailable [address] + [place] [address] R Unavailable Unavailable Unavailable ANDREA, EMMY Unavailable [address] [place] [address] + [place] [address] R Unavailable Unavailable Unavailable ANDREA, EMMY Unavailable [address] [place] [address] + [place] [address] R Unavailable Unavailable Unavailable ANDREA, EMMY Unavailable [address] [place] [address] + [place] [address] R Unavailable Unavailable Unavailable ANDREA, EMMY Unavailable [address] [place] [address] + [place] [address] R Unavailable Unavailable Unavailable ANDREA, EMMY Unavailable [address] [place] [address] + [place] [address] R Unavailable Unavailable Unavailable ANDREA, EMMY Unavailable [address] [place] [address] + [place] [address] R Unavailable Unavailable Unavailable ANDREA, EMMY Unavailable [address] [place] [address] + [place] [address] R Unavailable Unavailable Unavailable ANDREA, EMMY Unavailable [address] [place] [address] + [place] [address] R Unavailable Unavailable Unavailable ANDREA, EMMY Unavailable [address] [place] [address] + [place] [address] R Unavailable Unavailable Unavailable ANDREA, EMMY Unavailable [address] [place] [address] + [place] [address] R Unavailable Unavailable Unavailable ANDREA, EMMY Unavailable [address] [place] [address] + [place] [address] R Unavailable Unavailable Unavailable ANDREA, EMMY Unavailable [facility] [address] + [place] [address] R Unavailable Unavailable Unavailable ANDREA, EMMY Unavailable [facility] [address] + [place] [address] R Unavailable Unavailable Unavailable ANDREA, EMMY Unavailable [facility] [address] + [place] [address] R Unavailable Unavailable Unavailable ANDREA, EMMY Unavailable [facility] [address] + [place] [address] R Unavailable Unavailable Unavailable Care Team Providers Name Role Phone Simon Willams Attending Unavailable Imer, Simon Primary Care Unavailable Imer, Simon Attending Unavailable Imer, Simon Primary Care Unavailable Imer, Simon Primary Care Unavailable Major Scherer Attending Unavailable Matthew Martinez Attending Unavailable Imer, Simon Primary Care Unavailable Matthew Martinez Referring Unavailable Matthew Martinez Attending Unavailable Matthew Martinez Referring Unavailable Imer, Simon Primary Care Unavailable Shawna Thomason Attending Unavailable Imer, Simon Attending Unavailable Imer, Simon Primary Care Unavailable MoodisKayode toledo Attending Unavailable Imer, Simon Referring Unavailable Imer, Simon Primary Care Unavailable Matthew Martinez Attending Unavailable Matthew Martinez Referring Unavailable Imer, Simon Primary Care Unavailable Imer, Simon Attending Unavailable Imer, Simon Primary Care Unavailable Imer, Simon Attending Unavailable Imer, Simon Primary Care Unavailable Miladys Lovell Referring Unavailable Imer, Simon Attending Unavailable Imer, Simon Primary Care Unavailable Isaiah Freire Attending Unavailable Imer, Simon Referring Unavailable Imer, Simon Primary Care Unavailable Mouna, Isaiah Attending Unavailable CebulIsaiah Referring Unavailable Imer, Simon Primary Care Unavailable Mouna, Isaiah Attending Unavailable CeIsaiah palacio Referring Unavailable Imer, Simon Primary Care Unavailable Isaiah Freire Consulting Unavailable Imer, Simon Attending Unavailable Imer, Simon Referring Unavailable Imer, Simon Primary Care Unavailable Imer, Simon Attending Unavailable Imer, Simon Referring Unavailable Imer, Simon Primary Care Unavailable Imer, Simon Attending Unavailable Imer, Simon Primary Care Unavailable Imer, Simon Attending Unavailable Imer, Simon Primary Care Unavailable Imer, Simon Attending Unavailable Imer, Simon Primary Care Unavailable Imer, Simon Primary Care Unavailable Vellanki, Miladys Attending Unavailable Miladys Lovell Referring Unavailable MoodisKayode toledo Attending Unavailable Imer, Simon Referring Unavailable Imer, Simon Primary Care Unavailable Kayode Esteban Attending Unavailable Imer, Simon Referring Unavailable MoodKayode dalton Attending Unavailable Kayode Esteban Referring Unavailable Imer, Simon Primary Care Unavailable Kayode Esteban Attending Unavailable Kayode Esteban Referring Unavailable Imer, Simon Primary Care Unavailable Imer, Simon Attending Unavailable Imer, Simon Primary Care Unavailable Kayode Esteban Attending Unavailable MoodKayode dalton Referring Unavailable PROBLEMS PROBLEMS DATE TYPE CONDITION / CODE ATTENDING STATUS SOURCE 04/10/2018 Unknown E03.9 - Simon Willams Active [place] Hypothyroidism, Community unspecified / Hospital E03.9(ICD-10) Repository 02/27/2018 Unknown 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, Community unspecified / Hospital D50.9(ICD-10) Repository 12/05/2017 Unknown R06.00 - Dyspnea, Miladys Lovell Active [place] unspecified / Community R06.00(ICD-10) Hospital Repository 12/05/2017 Unknown M06.9 - Rheumatoid Miladys Lovell Active [facility] arthritis, Community unspecified / Hospital M06.9(ICD-10) Repository 11/04/2017 Unknown 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 / I25.10(ICD-10) 11/04/2017 Unknown E78.5 - Moodbellaparis Kayode Active [place] Hyperlipidemia, Community unspecified / Hospital E78.5(ICD-10) Repository 11/04/2017 Unknown R06.02 - Shortness of Moodisparis Kayode Active [facility] breath / Community R06.02(ICD-10) Hospital Repository 11/04/2017 Unknown Z98.61 - Coronary KaydenisKayode [place] Active [place] angioplasty status / Community Z98.61(ICD-10) Hospital Repository 11/04/2017 Unknown I10 - Essential MoodispaKayode sanches Active [place] (primary) Community hypertension / Hospital I10(ICD-10) Repository 08/04/2017 Unknown R35.8 - Other ImerSimon Active [place] polyuria / Community R35.8(ICD-10) Hospital Repository 08/02/2017 Unknown R06.2 - Wheezing / ImerSimon justice Active [place] R06.2(ICD-10) Community Hospital Repository 08/02/2017 Unknown G47.33 - Obstructive ImerSimon justice Active [place] sleep apnea (adult) Community (pediatric) / Hospital G47.33(ICD-10) Repository 07/25/2017 Unknown D64.9 - Anemia, ImerSimon justice Active [place] unspecified / Community D64.9(ICD-10) Hospital Repository 07/07/2017 Unknown 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 LAB L501.1000 7-18 mg/dL Normal BUN 16 LAB L501.1100 0.70-1.30 mg/dL Normal CREAT,SERUM 1.17 Result Comment: The validity of the calculated GFR AND GFRAA in patients over 70 years has not been determined. Clinical correlation is essential. LAB L501.1110 >60 mL/min Normal EST GFR 65 Result Comment: Non- GFR Calc LAB L501.1115 >60 mL/min Normal EST GFR - AA 78 Result Comment: GFR Calc LAB L501.1300 10-20 RATIO Normal BUN/CRE 13.7 LAB L501.2200 8.5-10.1 mg/dL Low CA 8.4 LAB L501.5300 136-145 mmol/L NA Normal 143 LAB L501.5600 3.5-5.1 mmol/L K Normal 4.0 LAB L501.5900 98-107 mmol/L High CL 111 LAB L501.6100 21.0-32.0 mmol/L Normal CO2 22.0 LAB L501.6200 5-15 Normal GAP 10 Performed By: #### L500.2500, L501.9520, L506.0400 #### [facility] [address] [place], [address] THYROID STIM HORMONE Collected: 04/10/2018 Status: F Source: [place] (TSH) 2:11 PM [facility] [place] TYPE CODE TESTS RESULT OUT OF RANGE REFERENCE UNITS LAB L501.9520 0.358-3.74 uIU/mL Normal TSH 2.14 Performed By: #### L500.2500, L501.9520, L506.0400 #### [facility] [address] [place], [address] T4 FREE DIRECT Collected: 04/10/2018 Status: F Source: [place] 2:11 PM [facility] [place] TYPE CODE TESTS RESULT OUT OF RANGE REFERENCE UNITS LAB L506.0400 0.76-1.46 ng/dL Normal T4 FREE 0.79 DIRECT Performed By: #### L500.2500, L501.9520, L506.0400 #### [facility] [address] [place], [address] Observed: 03/27/2018 Status: F Source: [place] CULTURE, URINE 3:48 PM [facility] [place] Urine Culture Culture exhibits no growth. Performed By: #### M100.0650 #### [facility] [address] [place], [address] COMPREHENSIVE METABOLIC Collected: 02/27/2018 Status: F Source: [place] PROFIL 2:16 PM [facility] [place] Order Comment: DR LOVELL ORDERED CMP CBCD DR WILLAMS ORDERED MARIMAR CBCD FE SED CRPHS TSH T4F TYPE CODE TESTS RESULT OUT OF RANGE REFERENCE UNITS LAB L501.0100 74-106 mg/dL Normal GLU 83 Result Comment: Please note revised GLUCOSE reference range effective 2017. LAB L501.1000 7-18 mg/dL Normal BUN 17 LAB L501.1100 0.70-1.30 mg/dL Normal CREAT,SERUM 1.17 Result Comment: The validity of the calculated GFR AND GFRAA in patients over 70 years has not been determined. Clinical correlation is essential. LAB L501.1110 >60 mL/min Normal EST GFR 65 Result Comment: Non- GFR Calc LAB L501.1115 >60 mL/min Normal EST GFR - AA 78 Result Comment: GFR Calc LAB L501.1300 10-20 RATIO Normal BUN/CRE 14.5 LAB L501.1500 6.4-8.2 g/dL T Normal PROT 6.7 LAB L501.1800 3.2-5.0 g/dL Normal ALB 3.5 LAB L501.1950 2.2-4.2 g/dL Normal GLOB 3.2 LAB L501.2000 0.9-2.4 RATIO Normal A/G 1.1 LAB L501.2200 8.5-10.1 mg/dL Low CA 8.0 LAB L501.4100 15-37 U/L Normal AST 26 LAB L501.4305 45-117 U/L Normal ALK P 106 LAB L501.4405 16-61 U/L Normal ALT 26 LAB L501.4600 0.20-1.00 mg/dL T Normal BILI 0.20 LAB L501.5300 136-145 mmol/L NA Normal 143 LAB L501.5600 3.5-5.1 mmol/L K Normal 4.2 LAB L501.5900 98-107 mmol/L High CL 109 LAB L501.6100 21.0-32.0 mmol/L Normal CO2 24.0 LAB L501.6200 5-15 Normal GAP 10 Performed By: #### L500.4050, L501.6750, L501.9520, L503.6150, L503.6550, L506.0400 #### [facility] [address] [facility] [place], [place], [id number] CRP, HIGH SENSITIVITY Collected: 02/27/2018 Status: F Source: [place] CARDIAC 2:16 PM [facility] [place] Order Comment: DR LOVELL ORDERED CMP CBCD DR WILLAMS ORDERED MARIMAR CBCD FE SED CRPHS TSH T4F TYPE CODE TESTS RESULT OUT OF RANGE REFERENCE UNITS LAB L501.6750 mg/L Normal CRP HIGH 2.85 SENS Result Comment: Low Relative Risk of CVD <1.0 mg/L Average Relative Risk of CVD 1.0 - 3.0 mg/L High Relative Risk of CVD >3.0 mg/L Performed By: #### L500.4050, L501.6750, L501.9520, L503.6150, L503.6550, L506.0400 #### [facility] [address] [place], [address] THYROID STIM HORMONE Collected: 02/27/2018 Status: F Source: [place] (TSH) 2:16 PM [facility] [place] Order Comment: DR LOVELL ORDERED CMP CBCD DR WILLAMS ORDERED MARIMAR CBCD FE SED CRPHS TSH T4F TYPE CODE TESTS RESULT OUT OF RANGE REFERENCE UNITS LAB L501.9520 0.358-3.74 uIU/mL High TSH 4.65 Performed By: #### L500.4050, L501.6750, L501.9520, L503.6150, L503.6550, L506.0400 #### [facility] [address] [place], [address] IRON Collected: 02/27/2018 Status: F Source: [place] 2:16 PM [facility] [place] Order Comment: DR LOVELL ORDERED CMP CBCD DR WILLAMS ORDERED MARIMAR CBCD FE SED CRPHS TSH T4F TYPE CODE TESTS RESULT OUT OF RANGE REFERENCE UNITS LAB L503.6150 65-175 ug/dL Normal IRON 116 Performed By: #### L500.4050, L501.6750, L501.9520, L503.6150, L503.6550, L506.0400 #### [facility] [address] [place], [address] FERRITIN Collected: 02/27/2018 Status: F Source: [place] 2:16 PM [facility] [place] Order Comment: DR LOVELL ORDERED CMP CBCD DR WILLAMS ORDERED MARIMAR CBCD FE SED CRPHS TSH T4F TYPE CODE TESTS RESULT OUT OF RANGE REFERENCE UNITS LAB L503.6550 26-388 ng/mL Normal FERRITIN 35 Performed By: #### L500.4050, L501.6750, L501.9520, L503.6150, L503.6550, L506.0400 #### [facility] [address] [place], [address] T4 FREE DIRECT Collected: 02/27/2018 Status: F Source: [place] 2:16 PM [facility] [place] Order Comment: DR LOVELL ORDERED CMP CBCD DR WILLAMS ORDERED MARIMAR CBCD FE SED CRPHS TSH T4F TYPE CODE TESTS RESULT OUT OF REFERENCE UNITS RANGE LAB L506.0400 0.76-1.46 ng/dL Low T4 FREE 0.68 DIRECT Performed By: #### L500.4050, L501.6750, L501.9597, L503.6150, L503.6550, L506.0400 #### [facility] [place], [address] CBC W/DIFF, AUTOMATED Collected: 02/27/2018 Status: F Source: [place] 2:16 PM [facility] [place] Order Comment: DR LOVELL ORDERED CMP CBCD DR WILLAMS ORDERED MARIMAR CBCD FE SED CRPHS TSH T4F TYPE CODE TESTS RESULT OUT OF RANGE REFERENCE UNITS LAB L100.1000 4.4-11.0 K/mm3 Normal WBC 6.2 LAB L100.1200 4.6-6.2 M/mm3 Low RBC 3.59 LAB L100.1300 13.0-16.5 g/dl Low HGB 12.6 LAB L100.1400 40-54 % Low HCT 38.6 LAB L100.1500 80-94 fL High MCV 107.5 LAB L100.1600 27.0-32.0 pg High MCH 35.1 LAB L100.1700 32-36 g/gl Normal MCHC 32.6 LAB L100.1810 11.6-14.6 % Normal RDW CV 13.3 LAB L100.1820 35.1-43.9 fl High RDW SD 51.7 LAB L100.1900 150-450 K/mm3 Normal PLT 189 LAB L100.2000 6.2-12.0 fl Normal MPV 9.7 LAB L100.2100 47-70 % Normal NEUT% 69.4 LAB L100.2200 19-41 % Low LY% 17.9 LAB L100.2300 0-10 % High MONO% 10.3 LAB L100.2400 0-5 % Normal EO% 1.9 LAB L100.2500 0-1 % Normal BASO% 0.3 LAB L100.2550 0.0-0.9 % Normal IM GRAN % 0.200 Result Comment: IG% - Immature Granulocytes (promyelocytes, myelocytes and metamyelocytes) > 1% indicates that a LEFT SHIFT is Present. LAB L100.2620 2.0-7.7 X10 3/uL Normal Absolute Neut 4.3 LAB L100.2720 0.83-4.51 X10 3/ul Normal Absolute Lymph 1.11 Performed By: #### L100.0100, L101.9900 #### [facility] [address] [place], [address] ERYTHROCYTE SED RATE Collected: 02/27/2018 Status: F Source: [place] 2:16 PM [facility] [place] Order Comment: DR LOVELL ORDERED CMP CBCD DR WILLAMS ORDERED MARIMAR CBCD FE SED CRPHS TSH T4F TYPE CODE TESTS RESULT OUT OF RANGE REFERENCE UNITS LAB L102.0000 0-20 mm/hr Normal SED RATE 10 Performed By: #### L100.0100, L101.9900 #### [facility] [address] [place], [place], [address] URINALYSIS, COMPLETE Collected: 12/05/2017 Status: F Source: [place] 3:12 PM [facility] [place] Order Comment: How was Urine Obtained? Urine, Random TYPE CODE TESTS RESULT OUT OF RANGE REFERENCE UNITS LAB L400.3000 Yellow COLOR Normal Yellow LAB L400.3050 Clear Normal CLARITY Clear LAB L400.3200 Normal mg/dl Normal GLUCOSE, UR Normal LAB L400.3300 Negative mg/dL Normal BILIRUBIN URINE Negative LAB L400.3400 Negative mg/dl Normal KETONE UR Negative LAB L400.3465 1.002-1.030 Normal SP.GR. DIPSTX 1.015 LAB L400.3550 5.0 - 8.0 pH UR Normal 6.5 LAB L400.3600 Negative mg/dl High PROT 30 DIPSTX LAB L400.3700 Normal mg/dl Normal UROBILI Normal LAB L400.3750 Negative Normal NITRITE UR Negative LAB L400.3780 Negative /ul Normal OCCULT BLOOD-UR Negative LAB L400.3800 Negative /ul LEUK Normal ESTERASE Negative LAB L400.4050 0-5 /hpf WBC Normal 0-5 SEEN LAB L400.4100 0-5 /hpf Normal RBC-UA 0-5 SEEN LAB L400.4150 0-5 /hpf SQUAM Normal EPI 5-10 SEEN LAB L400.4300 None Seen /hpf 0 Normal BACTERIA SEEN LAB L400.4350 <or=2+ /hpf 0 Normal MUCUS, URINE SEEN Performed By: #### L400.0001 #### [facility] [address] [place], [place], [address] CBC W/DIFF, AUTOMATED Collected: 12/05/2017 Status: F Source: [place] 2:27 PM [facility] [place] TYPE CODE TESTS RESULT OUT OF RANGE REFERENCE UNITS LAB L100.1000 4.4-11.0 K/mm3 Normal WBC 7.1 LAB L100.1200 4.6-6.2 M/mm3 Low RBC 3.59 LAB L100.1300 13.0-16.5 g/dl Low HGB 12.8 LAB L100.1400 40-54 % Low HCT 38.7 LAB L100.1500 80-94 fL High MCV 107.8 LAB L100.1600 27.0-32.0 pg High MCH 35.7 LAB L100.1700 32-36 g/gl Normal MCHC 33.1 LAB L100.1810 11.6-14.6 % Normal RDW CV 13.6 LAB L100.1820 35.1-43.9 fl High RDW SD 52.6 LAB L100.1900 150-450 K/mm3 Normal PLT 192 LAB L100.2000 6.2-12.0 fl Normal MPV 9.5 LAB L100.2100 47-70 % High NEUT% 72.9 LAB L100.2200 19-41 % Low LY% 15.6 LAB L100.2300 0-10 % Normal MONO% 8.7 LAB L100.2400 0-5 % Normal EO% 2.2 LAB L100.2500 0-1 % Normal BASO% 0.3 LAB L100.2550 0.0-0.9 % Normal IM GRAN % 0.300 Result Comment: IG% - Immature Granulocytes (promyelocytes, myelocytes and metamyelocytes) > 1% indicates that a LEFT SHIFT is Present. LAB L100.2620 2.0-7.7 X10 3/uL Normal Absolute Neut 5.2 LAB L100.2720 0.83-4.51 X10 3/ul Normal Absolute Lymph 1.11 Performed By: #### L100.0100 #### [facility] [address] [place], [address] COMPREHENSIVE METABOLIC Collected: 12/05/2017 Status: F Source: [place] PROFIL 2:27 PM [facility] [place] TYPE CODE TESTS RESULT OUT OF RANGE REFERENCE UNITS LAB L501.0100 74-106 mg/dL High GLU 132 Result Comment: Fasting Glucose result greater than or equal to 126 mg/dL suggests DIABETES MELLITUS per A.D.A. criteria. Please note revised GLUCOSE reference range effective 2017. LAB L501.1000 7-18 mg/dL High BUN 23 LAB L501.1100 0.70-1.30 mg/dL Normal CREAT,SERUM 1.26 Result Comment: The validity of the calculated GFR AND GFRAA in patients over 70 years has not been determined. Clinical correlation is essential. LAB L501.1110 >60 mL/min Low EST GFR 59 Result Comment: Non- GFR Calc LAB L501.1115 >60 mL/min Normal EST GFR - AA 72 Result Comment: GFR Calc LAB L501.1300 10-20 RATIO Normal BUN/CRE 18.3 LAB L501.1500 6.4-8.2 g/dL T Normal PROT 7.0 LAB L501.1800 3.2-5.0 g/dL Normal ALB 3.6 LAB L501.1950 2.2-4.2 g/dL Normal GLOB 3.4 LAB L501.2000 0.9-2.4 RATIO Normal A/G 1.1 LAB L501.2200 8.5-10.1 mg/dL CA Normal 8.5 LAB L501.4100 15-37 U/L Normal AST 24 LAB L501.4305 45-117 U/L Normal ALK P 105 LAB L501.4405 16-61 U/L Normal ALT 26 LAB L501.4600 0.20-1.00 mg/dL T Normal BILI 0.30 LAB L501.5300 136-145 mmol/L NA Normal 140 LAB L501.5600 3.5-5.1 mmol/L K Normal 4.1 LAB L501.5900 98-107 mmol/L High CL 109 LAB L501.6100 21.0-32.0 mmol/L Normal CO2 25.0 LAB L501.6200 5-15 Normal GAP 6 Performed By: #### L500.4050 #### [facility] [address] [place], [address] CBC W/DIFF, AUTOMATED Collected: 12/05/2017 Status: F Source: [place] 8:08 AM [facility] [place] TYPE CODE TESTS RESULT OUT OF RANGE REFERENCE UNITS LAB L100.1000 4.4-11.0 K/mm3 Normal WBC 5.8 LAB L100.1200 4.6-6.2 M/mm3 Low RBC 3.54 LAB L100.1300 13.0-16.5 g/dl Low HGB 12.1 LAB L100.1400 40-54 % Low HCT 38.5 LAB L100.1500 80-94 fL High MCV 108.8 LAB L100.1600 27.0-32.0 pg High MCH 34.2 LAB L100.1700 32-36 g/gl Low MCHC 31.4 LAB L100.1810 11.6-14.6 % Normal RDW CV 14.2 LAB L100.1820 35.1-43.9 fl High RDW SD 56.5 LAB L100.1900 150-450 K/mm3 Normal PLT 198 LAB L100.2000 6.2-12.0 fl Normal MPV 9.7 LAB L100.2100 47-70 % Normal NEUT% 59.0 LAB L100.2200 19-41 % Normal LY% 24.4 LAB L100.2300 0-10 % High MONO% 12.5 LAB L100.2400 0-5 % Normal EO% 3.6 LAB L100.2500 0-1 % Normal BASO% 0.3 LAB L100.2550 0.0-0.9 % Normal IM GRAN % 0.200 Result Comment: IG% - Immature Granulocytes (promyelocytes, myelocytes and metamyelocytes) > 1% indicates that a LEFT SHIFT is Present. LAB L100.2620 2.0-7.7 X10 3/uL Normal Absolute Neut 3.4 LAB L100.2720 0.83-4.51 X10 3/ul Normal Absolute Lymph 1.42 Performed By: #### L100.0100 #### [facility] [address] [place], [address] COMPREHENSIVE METABOLIC Collected: 12/05/2017 Status: F Source: [place] [facility] 8:08 AM [facility] [place] TYPE CODE TESTS RESULT OUT OF RANGE REFERENCE UNITS LAB L501.0100 74-106 mg/dL Low GLU 70 Result Comment: Please note revised GLUCOSE reference range effective 2017. LAB L501.1000 7-18 mg/dL High BUN 21 LAB L501.1100 0.70-1.30 mg/dL Normal CREAT,SERUM 1.20 Result Comment: The validity of the calculated GFR AND GFRAA in patients over 70 years has not been determined. Clinical correlation is essential. LAB L501.1110 >60 mL/min Normal EST GFR 63 Result Comment: Non- GFR Calc LAB L501.1115 >60 mL/min Normal EST GFR - AA 76 Result Comment: GFR Calc LAB L501.1300 10-20 RATIO Normal BUN/CRE 17.5 LAB L501.1500 6.4-8.2 g/dL T Normal PROT 6.9 LAB L501.1800 3.2-5.0 g/dL Normal ALB 3.5 LAB L501.1950 2.2-4.2 g/dL Normal GLOB 3.4 LAB L501.2000 0.9-2.4 RATIO Normal A/G 1.0 LAB L501.2200 8.5-10.1 mg/dL Low CA 8.2 LAB L501.4100 15-37 U/L Normal AST 24 LAB L501.4305 45-117 U/L Normal ALK P 105 LAB L501.4405 16-61 U/L Normal ALT 29 LAB L501.4600 0.20-1.00 mg/dL T Normal BILI 0.20 LAB L501.5300 136-145 mmol/L NA Normal 141 LAB L501.5600 3.5-5.1 mmol/L K Normal 4.0 LAB L501.5900 98-107 mmol/L CL Normal 106 LAB L501.6100 21.0-32.0 mmol/L Normal CO2 26.0 LAB L501.6200 5-15 Normal GAP 9 Performed By: #### L500.4050, L503.6150, L503.6550 #### [facility] [address] [place], [address] IRON Collected: 12/05/2017 Status: F Source: [place] 8:08 AM [facility] [place] TYPE CODE TESTS RESULT OUT OF RANGE REFERENCE UNITS LAB L503.6150 65-175 ug/dL Low IRON 42 Performed By: #### L500.4050, L503.6150, L503.6550 #### [facility] [address] [place], [address] FERRITIN Collected: 12/05/2017 Status: F Source: [place] 8:08 AM [facility] [place] TYPE CODE TESTS RESULT OUT OF RANGE REFERENCE UNITS LAB L503.6550 26-388 ng/mL Normal FERRITIN 48 Performed By: #### L500.4050, L503.6150, L503.6550 #### [facility] [address] [place], [address] VITAMIN B12 Collected: 12/05/2017 Status: F Source: [place] 8:08 AM [facility] [place] TYPE CODE TESTS RESULT OUT OF RANGE REFERENCE UNITS LAB L503.0105 211-911 pg/mL Normal Vitamin B12 371 Performed By: #### L503.0105 #### [facility] [address] [place], [address] VENOUS BLOOD GAS Collected: 11/15/2017 Status: F Source: [place] 11:17 AM [facility] [place] TYPE CODE TESTS RESULT OUT OF RANGE REFERENCE UNITS LAB L9000.9990 Normal BLD GAS ERI[place] TYPE LAB L9002.1110 7.32-7.42 Normal VBGpH - 7.36 I-STAT LAB L9002.1212 41-51 mmHg Normal VBG pCO2 42.6 - ISTA LAB L9002.1310 25-40 mmHg Normal VBG PO2 38 I-STAT LAB L9002.2300 22-26 mmol/L Normal VBG HCO3 24 ISTAT LAB L9002.2400 -1.0-3.5 mmol/L Low VBG BE -2 ISTAT LAB L9002.2410 50-70 % Normal VBG SO2 70 ISTAT LAB L9002.2415 23-33 mmol/L Normal VBG O2 CT 25 ISTAT Performed By: #### L9000.0810 #### [facility] Point of Care [address] [place], [place] [address] VENOUS BLOOD GAS Collected: 11/15/2017 Status: F Source: [place] 11:14 AM [facility] [place] TYPE CODE TESTS RESULT OUT OF RANGE REFERENCE UNITS LAB L9000.9990 Normal BLD GAS ERIKA TYPE LAB L9002.1110 7.32-7.42 Normal VBGpH - 7.35 I-STAT LAB L9002.1212 41-51 mmHg Normal VBG pCO2 42.5 - ISTA LAB L9002.1310 25-40 mmHg Normal VBG PO2 40 I-STAT LAB L9002.2300 22-26 mmol/L Normal VBG HCO3 24 ISTAT LAB L9002.2400 -1.0-3.5 mmol/L Low VBG BE -2 ISTAT LAB L9002.2410 50-70 % High VBG SO2 72 ISTAT LAB L9002.2415 23-33 mmol/L Normal VBG O2 CT 25 ISTAT Performed By: #### L9000.0810 #### [facility] Point of Care [address] [facility] [address] VENOUS BLOOD GAS Collected: 11/15/2017 Status: F Source: 11:11 AM [facility] [place] TYPE CODE TESTS RESULT OUT OF RANGE REFERENCE UNITS LAB L9000.9990 Normal BLD GAS E[place]KA TYPE LAB L9002.1110 7.32-7.42 Normal VBGpH - 7.38 I-STAT LAB L9002.1212 41-51 mmHg Low VBG pCO2 39.8 - ISTA LAB L9002.1310 25-40 mmHg High VBG PO2 46 I-STAT LAB L9002.2300 22-26 mmol/L Normal VBG HCO3 23 ISTAT LAB L9002.2400 -1.0-3.5 mmol/L Low VBG BE -2 ISTAT LAB L9002.2410 50-70 % High VBG SO2 81 ISTAT LAB L9002.2415 23-33 mmol/L Normal VBG O2 CT 25 ISTAT Performed By: #### L9000.0810 #### [facility] Point of Care [address] [place] [address]. [place], [place] [id number] BLOOD GASES BY [facility] Collected: 11/15/2017 Status: F Source: [place]ND[place] 11:08 AM [facility] [place] TYPE CODE TESTS RESULT OUT OF RANGE REFERENCE UNITS LAB L9000.9990 Normal BLD GAS ART TYPE LAB L9001.1110 7.35-7.45 Normal pH - 7.37 I-STAT LAB L9001.1210 35-45 mmHg Normal pCO2 - 39.9 ISTAT LAB L9001.1310 75-100 mmHG Low PO2 74 I-STAT LAB L9001.2300 22-26 mmol/L Normal HCO3 23.2 ISTAT LAB L9001.2400 -2 to +2 mmol/L Normal BE ISTAT -2 LAB L9001.2415 mmol/L Normal TOTAL CO2 24 ISTAT LAB L9001.2425 95-99 % Low SO2 ISTAT 94 Performed By: #### L9000.0800 #### [facility] Point of Care [address] [place], [place] [address] CBC W/DIFF, AUTOMATED Collected: 11/08/2017 Status: F Source: [place] 3:56 PM [facility] [place] TYPE CODE TESTS RESULT OUT OF RANGE REFERENCE UNITS LAB L100.1000 4.4-11.0 K/mm3 Normal WBC 7.3 LAB L100.1200 4.6-6.2 M/mm3 Low RBC 3.58 LAB L100.1300 13.0-16.5 g/dl Low HGB 12.8 LAB L100.1400 40-54 % Low HCT 38.9 LAB L100.1500 80-94 fL High MCV 108.7 LAB L100.1600 27.0-32.0 pg High MCH 35.8 LAB L100.1700 32-36 g/gl Normal MCHC 32.9 LAB L100.1810 11.6-14.6 % Normal RDW CV 14.0 LAB L100.1820 35.1-43.9 fl High RDW SD 54.3 LAB L100.1900 150-450 K/mm3 Normal PLT 190 LAB L100.2000 6.2-12.0 fl Normal MPV 9.2 LAB L100.2100 47-70 % High NEUT% 73.8 LAB L100.2200 19-41 % Low LY% 16.0 LAB L100.2300 0-10 % Normal MONO% 7.7 LAB L100.2400 0-5 % Normal EO% 2.1 LAB L100.2500 0-1 % Normal BASO% 0.3 LAB L100.2550 0.0-0.9 % Normal IM GRAN % 0.100 Result Comment: IG% - Immature Granulocytes (promyelocytes, myelocytes and metamyelocytes) > 1% indicates that a LEFT SHIFT is Present. LAB L100.2620 2.0-7.7 X10 3/uL Normal Absolute Neut 5.4 LAB L100.2720 0.83-4.51 X10 3/ul Normal Absolute Lymph 1.17 Performed By: #### L100.0100, L300.3900, L300.4310 #### [facility] [address] [place], [address] PROTHROMBIN TIME W/INR Collected: 11/08/2017 Status: F Source: [place] 3:56 PM [facility] [place] TYPE CODE TESTS RESULT OUT OF RANGE REFERENCE UNITS LAB L300.4150 11.7-14.9 SECONDS Normal PROTIME 13.6 LAB L300.4200 Normal INR 1.0 Performed By: #### L100.0100, L300.3900, L300.4310 #### [facility] [address] [place], [place], [id number] PARTIAL THROMBOPLAST Collected: 11/08/2017 Status: F Source: [place] TIME 3:56 PM [facility] [place] TYPE CODE TESTS RESULT OUT OF RANGE REFERENCE UNITS LAB L300.4310 24.1-36.2 Seconds Normal PTT 26.8 Performed By: #### L100.0100, L300.3900, L300.4310 #### [facility] [address] [place], [address] BASIC METABOLIC Collected: 11/08/2017 Status: F Source: [place] PROFILE (BMP) 3:56 PM [facility] [place] TYPE CODE TESTS RESULT OUT OF RANGE REFERENCE UNITS LAB L501.0100 74-106 mg/dL High GLU 119 Result Comment: Fasting Glucose result from 100 to 125 mg/dL suggests IMPAIRED HOMEOSTASIS per A.D.A. criteria. Please note revised GLUCOSE reference range effective 2017. LAB L501.1000 7-18 mg/dL High BUN 20 LAB L501.1100 0.70-1.30 mg/dL High CREAT,SERUM 1.35 Result Comment: The validity of the calculated GFR AND GFRAA in patients over 70 years has not been determined. Clinical correlation is essential. LAB L501.1110 >60 mL/min Low EST GFR 55 Result Comment: Non- GFR Calc LAB L501.1115 >60 mL/min Normal EST GFR - AA 66 Result Comment: GFR Calc LAB L501.1300 10-20 RATIO Normal BUN/CRE 14.8 LAB L501.2200 8.5-10.1 mg/dL CA Normal 8.5 LAB L501.5300 136-145 mmol/L NA Normal 141 LAB L501.5600 3.5-5.1 mmol/L K Normal 4.0 LAB L501.5900 98-107 mmol/L High CL 108 LAB L501.6100 21.0-32.0 mmol/L Normal CO2 27.0 LAB L501.6200 5-15 Normal GAP 6 Performed By: #### L500.2500 #### [facility] [address] [facility], [address] CHEST PA AND LATERAL Observed: 11/08/2017 Status: F Source: [place] 3:55 PM [facility] [place] [facility] Imaging Services [address] [place] [address] Chest PA and Lateral MR#: [id number] Acct: [id number] Name: IMAN ANDREA Rep #: [id number] : 1945 M 72 From: Iman Sepulveda MD PCP: Simon Willams MD Status: REG CLI Study: Chest PA and Lateral Date of Exam: 11/08/17 Exam# [id number] Ordering Dr: Kayode Esteban MD STUDY: X-RAY CHEST REASON FOR EXAM: Male, 72 years old. CAD TECHNIQUE: Frontal and lateral views of the chest. COMPARISON: 06/01/2017 FINDINGS: Stable hiatal hernia. The lungs are clear and expanded. There is no demonstrated pleural abnormality. Normal size heart. Normal mediastinum and wendy. Normal visualized pulmonary arteries. Normal visualized aortic arch and descending thoracic aorta. There are diffuse degenerative changes of the visualized thoracic spine. Normal visualized ribs, clavicles, and shoulders. There is no demonstrated abnormality of the visualized soft tissue structures of the upper abdomen. RAD/Chest PA and Lateral IMPRESSION: No acute pulmonary findings. 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 [place] [address] OFFICE VISIT Date of Service: 11/04/17 MR#: [id number] Acct: [id number] Name: IMAN ANDREA Rep #: [id number] : 1945 Provider: Kayode Esteban MD Age/Sex: 72/M Location: [facility] [place] Status: Signed HPI HPI Details: IMAN ANDREA, is a 72 M who presents to the office today for outpatient cardiovascular follow-up. His main complaint is shortness of breath and dyspnea on exertion. He states this is progressing. He states it takes very minimal exertion for him to become short of breath and dyspneic. He has not had orthopnea or PND. He has had mild lower extremity peripheral pitting edema and does wear support stockings. This has not significantly changed. He has not had any near syncope or syncope. He has not had to use any nitroglycerin supplements for his symptoms. He has been through a variety of noninvasive cardiopulmonary tests which have been unrevealing for any definitive etiology of his symptoms. He has not had a repeat cardiac catheterization test. Intake Vital Signs11/04/17 Height 5 ft 9 in 11/04/17 Weight: 214 lb 11/04/17 Body Mass Index (BMI) 31.6 11/04/17 Blood Pressure 128/66 Intake Visit Reasons: Dyspnea Allergies Antihistamines - Ethylenediamine Adverse Reaction (Verified 11/04/17 13:16) Other Medications Atorvastatin Calcium [Lipitor] 40 mg PO QHS 12/18/12 [History Confirmed 11/04/17] Enalapril Maleate [Vasotec] 5 mg PO BID 12/18/12 [History Confirmed 11/04/17] Omeprazole [Prilosec] 20 mg PO DAILY 12/18/12 [History Confirmed 11/04/17] Tamsulosin HCl [Flomax] 0.4 mg PO DAILY 12/18/12 [History Confirmed 11/04/17] Pramipexole Di-HCl [Mirapex] 2 mg PO QHS 04/09/15 [History Confirmed 11/04/17] metoprolol succinate ER 25 mg tablet,extended release 24 hr 25 mg PO QDAY 03/17/17 [History Confirmed 11/04/17] folic acid 1 mg tablet 2 mg PO QDAY tab 03/18/17 [History Confirmed 11/04/17] modafinil 100 mg tablet 200 mg PO QDAY tab 03/18/17 [History Confirmed 11/04/17] tramadol 50 mg tablet 100 mg PO Q6H PRN tab 03/18/17 [History Confirmed 11/04/17] Aspirin 325 mg PO DAILY 04/29/17 [History Confirmed 11/04/17] albuterol sulfate HFA 90 mcg/actuation aerosol inhaler 2 puff INHALATION Q6H PRN 07/07/17 [History Confirmed 11/04/17] calcium carbonate-vitamin D3 600 mg (1,500 mg)-400 unit capsule 2 cap PO DAILY cap 07/07/17 [History Confirmed 11/04/17] ferrous sulfate 324 mg (65 mg iron) tablet,delayed release 324 mg PO BID tab 07/07/17 [History Confirmed 11/04/17] triamcinolone acetonide 55 mcg nasal spray aerosol 2 spray INTRANASAL QDAY 07/07/17 [History Confirmed 11/04/17] methotrexate sodium 2.5 mg tablet 5 mg PO QWEEK tab 07/13/17 [History Confirmed 11/04/17] nitroglycerin 0.4 mg sublingual tablet 0.4 mg SUBLINGUAL Q5M PRN #90 tab 07/13/17 [Rx Confirmed 11/04/17] budesonide-formoterol HFA 80 mcg-4.5 mcg/actuation aerosol inhaler 2 puff INHALATION BID 11/04/17 [History Confirmed 11/04/17] clopidogrel 75 mg tablet 75 mg PO QDAY #30 tab 11/04/17 [Rx Confirmed 11/04/17] [facility] Medical History Anemia (Acute) Presence of stent in coronary artery (Chronic 09/21/11) Rheumatoid arthritis (Chronic) Hyperlipidemia (Acute) BPH (benign prostatic hyperplasia) (Chronic) Atherosclerosis of [place] coronary artery of [place] heart without angina pectoris (Chronic) RENALDO (obstructive sleep apnea) (Chronic) Nephrolithiasis (Chronic) Diabetes mellitus (Chronic) Hiatal hernia (Chronic) Arthritis (Chronic) Essential (primary) hypertension (Chronic) Surgical History History of back surgery (Resolved 04/19/17) Postsurgical percutaneous transluminal coronary angioplasty (PTCA) status (Chronic 09/21/11) History of cholecystectomy (Chronic) History of total left knee replacement (Chronic) Hx of appendectomy (Chronic) History of total right knee replacement (TKR) (Chronic 03/17/16) Family History Father CAD (coronary artery disease) Mother CAD (coronary artery disease) Breast cancer Colon cancer Diabetes Brother CAD (coronary artery disease) CVA (cerebral vascular accident) Diabetes Social History Smoking Status: Never smoker alcohol intake: never substance use type: does not use caffeine: Yes Type: carbonated beverages Number of servings: 1 what type of physical activity do you participate in: none seatbelt use: always do you feel safe at home: Yes ROS Const Const: Positive for fatigue (increased) and weakness (increased); negative for weight gain, weight loss, frequent falls or excessive sweating Eyes Eyes: Negative for change in vision, blurry vision or transient loss of vision ENT ENT: Positive for balance problems (unsteadiness, ambulates with a cane); negative for dizziness Cardio Chest Pain: No Palpitations: No Edema: Bilateral (wears compression stockings) Muscle aches with walking: None Resp Respiratory: Positive for SOB with activity (increased with minimal exertion) and wheezing (occasional); negative for SOB at rest GI GI: Negative vomiting or vomiting blood/hematemesis : Negative for hematuria Musc Musc: Positive for balance problems (unsteadiness, ambulates with a cane); negative for muscle aches/ myalgia, muscle weakness or joint pain Skin Skin: Negative non-healing lesions or rash Neuro Neuro: Positive for weakness (increased); negative for blurry vision, dizziness, lightheadedness, frequent falls or orthostatic symptoms Redd Hematologic/Lymphatic: Negative for easy bleeding Endo Endo: Positive for fatigue (increased); negative for excessive sweating Psych Psych: Negative for anxiety or depression Allergy Allergy/Immunology: Negative for hives, Negative for rash Cardiology Exam Const Appearance: cooperative, healthy appearing, comfortable, no acute distress, well developed and well groomed Nutritional Appearance: overweight Orientation: alert, awake and oriented x3 Head Head: normal to inspection, normocephalic and atraumatic Ears: hearing grossly normal bilaterally Nose: external nose normal Face and Sinus: face symmetric Mouth: oral mucosae normal Teeth and gingiva: fair dentition Eyes Eyelids: eyelids normal Conjunctivae: conjunctivae normal Pupils: PERRL EOM: EOM intact bilaterally Neck Neck: no JVD, normal visual inspection and full ROM Carotids: normal carotid upstroke Chest Chest inspection: normal inspection of the chest and symmetric chest movement Auscultation: Bilateral: Clear to Auscultation Cardio Palpation: normal PMI Rate: regular rate Rhythm: regular rhythm Heart sounds: S1 normal and S2 normal GI GI: normal to inspection, soft and bowel sounds present Neuro General: alert, awake, oriented x3 and CN's II-XI intact bilaterally Skin Skin: no rashes or lesions noted Extremities Pulses: Normal: Right Posterior Tibial Pulse, Left Posterior Tibial Pulse, Right Radial Pulse, Left Radial Pulse Lower Extremity Edema: +1: Right, +2: Right Wearing support stockings Psych Psychological: normal affect Supplemental Info He did have a transthoracic echocardiogram performed on 02/22/2017 Interpretation Summary Normal LV size. Left ventricular systolic function is normal. The estimated ejection fraction is 65 %. Mild focal aortic valve calcification. Aortic sclerosis, no stenosis. He had a pharmacologic stress nuclear imaging study performed on 06/01/2016 EXERCISE TOLERANCE TEST: The patient underwent pharmacologic (regadenoson) evaluation with a peak heart rate of 94 beats per minute (63% predicted maximum heart rate) and a peak blood pressure of 142/82 mmHg. The baseline ECG demonstrated normal sinus rhythm. The peak pharmacologic ECG demonstrated no obvious ECG changes. There were no cardiac dysrhythmias pretest, during pharmacologic infusion, or recovery. The patient had no complaint of chest discomfort during pharmacologic infusion or recovery. The examination was discontinued secondary to completion of protocol. IMPRESSION: 1. Pharmacologic (regadenoson) evaluation. 2. Peak pharmacologic ECG with no obvious ECG changes. 3. Nuclear images pending. MYOCARDIAL PERFUSION IMAGING STUDY: TECHNIQUE: The patient was injected with 11.9 mCi of Tc99m Cardiolite and subsequently rest SPECT Cardiolite nuclear imaging was obtained in the horizontal long, vertical long and short axes views. The patient underwent pharmacologic (regadenoson) evaluation with a peak heart rate of 94 beats per minute (63% predicted maximum heart rate) and a peak blood pressure of 142/82 mmHg. The patient was injected with 33.4 mCi of Tc99m Cardiolite and subsequently stress SPECT Cardiolite nuclear imaging was obtained in the horizontal long, vertical long and short axes views. A gated Cardiolite study at peak stress was obtained. INTERPRETATION: Rest and stress SPECT Cardiolite nuclear imaging status post realignment, normalization and attenuation correction demonstrates relative uniform tracer uptake with the exception of a small area of subtle diminished tracer uptake near the apical segments without significant change. There are similar type findings on the resting and stress polar map images. There was end systolic thickening and brightening. The gated Cardiolite study demonstrates myocardial thickening and inward wall motion. The reported LVEF is 68%. The aforementioned findings appear compatible with physiologic apical thinning with no myocardial perfusion changes considered diagnostic for stress- induced myocardial ischemia or previous myocardial injury/infarction. IMPRESSION: 1. Rest and stress SPECT Cardiolite nuclear imaging demonstrate the appearance of relative uniform tracer uptake with the exception of a small area of subtle diminished tracer uptake near the apical segments appearing compatible with physiologic apical thinning with no myocardial perfusion changes considered diagnostic for associated stress-induced myocardial ischemia or previous myocardial injury/infarction. 2. The gated Cardiolite study reports an LVEF of 68%. He had a diagnostic cardiac catheterization performed on 09/21/2011. FINAL IMPRESSION 1. Elevated left ventricular end diastolic pressure compatible with decreased diastolic corn p1 i a nce. 2. Left ventricle: A, Normal left ventricular size, wall motion and systolic function. B. Estimated LVEF of 60 percent. 3. Left main coronary artery. A. Large short vessel. B. Proximal 10-25 percent eccentric appearing stenosis. 4. Left anterior descending coronary. A. Proximal diffuse minimal luminal irregularities. B. Proximal second septal pvc monitor (bifurcating vessel) with 50 percent appearing stenosis. 5. Left circumflex coronary. A. Proximal diffuse minimal luminal irregularities. 6. Right coronary artery. A. Large dominant vessel. B. Proximal discrete 75 percent concentric appearing stenosis. C. Proximal to mid to distal diffuse minimal luminal irregularities. He had a PCI performed on 09/21/2011 at [facility]. This included a SAMANTHA to the RCA with a Promus 4.0 12 mm stent. He had a Holter monitor performed on 04/12/2014. This is a 24 hour holter monitor. Normal Sinus Rhythm Average heart rate is 74 BPM Minimum heart rate was 56 BPM in Sinus Bradycardia at 6:26 AM Maximum heart rate was 120 BPM in Sinus Tachycardia at 10:34AM Rare premature atrial complexes. 6 atrial couplets. 10 beats of trigeminy. The fastest and longest atrial run consisted of 4 beats with a maximum heart rate of 117 BPM at 5:48AM. The longest R-R interval was 1.4 seconds at 5:48 AM The patient kept a diary with no symptoms noted. No atrial fibrillation noted. Assessment AND Plan 1. Atherosclerosis of [place] coronary artery of [place] heart without angina pectoris I25.10 PTCA/SAMANTHA to prox RCA 09/21/11 Plan At the present time there is concern that his progressive shortness of breath and dyspnea may represent an angina pectoris equivalent. As it appears to be progressing with less and less activity it was felt reasonable, as he has been through multiple noninvasive cardiopulmonary tests, that he be reassessed in the cardiac catheterization laboratory with respect to his coronary vasculature as well as his right sided pressures. Orders Orders: 2. S/P PTCA (percutaneous transluminal coronary angioplasty) Z98.61 PTCA/SAMANTHA to prox RCA 09/21/11 Plan He does have a history of previous PCI. Again there is concern to his progressive shortness of breath and dyspnea may be related to an angina pectoris equivalent. Thus it is recommended that he not only continue medical therapy but proceed with further evaluation as noted above. 3. Hyperlipidemia, unspecified hyperlipidemia type E78.5 Plan He will continue risk factor evaluation and care as deemed appropriate Orders Orders: 4. Essential (primary) hypertension I10 Plan He has blood pressure appears to be reasonably well-controlled. This will be can monitored 5. Shortness of breath R06.02 Plan He does have progressive shortness of breath. There is concern this may be an angina pectoris equivalent. Thus was felt prudent he undergo repeat invasive evaluation care as noted above for his cardiopulmonary status. The procedure and risks were discussed with him. He was agreeable to this approach. Thank you for allowing me to participate in the care of your patient. Please don't hesitate to call if any issues arise. This note was generated using a voice recognition system and there may be incorrect words, spelling or punctuation that were not noted when reviewing the office note prior to saving. Orders Orders: Plan Detail Other Medications New: Follow Up 6 Months Coding Level of Care Code Off vis,new,level 5 Diagnoses Atherosclerosis of [place] coronary artery of [place] heart without angina pectoris I25.10 S/P PTCA (percutaneous transluminal coronary angioplasty) Z98.61 Hyperlipidemia, unspecified hyperlipidemia type E78.5 Hyperlipidemia type: unspecified Essential (primary) hypertension I10 Shortness of breath R06.02 Coding Level of Care Code Off vis,new,level 5 Diagnoses Atherosclerosis of [place] coronary artery of [place] heart without angina pectoris I25.10 S/P PTCA (percutaneous transluminal coronary angioplasty) Z98.61 Hyperlipidemia, unspecified hyperlipidemia type E78.5 Hyperlipidemia type: unspecified Essential (primary) hypertension I10 Shortness of breath R06.02 11/04/17 1407 <Electronically signed by Kayode Esteban MD> Date Kayode Esteban MD Cosigner Signature: Date (if applicable) CC: Simon Willams MD CBC W/DIFF, AUTOMATED Collected: 09/23/2017 Status: F Source: [place] 11:24 AM [facility] [place] Order Comment: DR WILLAMS ORDERED: BMP, CBCD DR LOVELL ORDERED: CMP, CBCD TYPE CODE TESTS RESULT OUT OF RANGE REFERENCE UNITS LAB L100.1000 4.4-11.0 K/mm3 Normal WBC 5.5 LAB L100.1200 4.6-6.2 M/mm3 Low RBC 3.47 LAB L100.1300 13.0-16.5 g/dl Low HGB 12.3 LAB L100.1400 40-54 % Low HCT 36.9 LAB L100.1500 80-94 fL High MCV 106.3 LAB L100.1600 27.0-32.0 pg High MCH 35.4 LAB L100.1700 32-36 g/gl Normal MCHC 33.3 LAB L100.1810 11.6-14.6 % Normal RDW CV 14.2 LAB L100.1820 35.1-43.9 fl High RDW SD 54.2 LAB L100.1900 150-450 K/mm3 Normal PLT 212 LAB L100.2000 6.2-12.0 fl Normal MPV 9.5 LAB L100.2100 47-70 % Normal NEUT% 64.9 LAB L100.2200 19-41 % Normal LY% 21.8 LAB L100.2300 0-10 % High MONO% 10.3 LAB L100.2400 0-5 % Normal EO% 2.6 LAB L100.2500 0-1 % Normal BASO% 0.2 LAB L100.2550 0.0-0.9 % Normal IM GRAN % 0.200 Result Comment: IG% - Immature Granulocytes (promyelocytes, myelocytes and metamyelocytes) > 1% indicates that a LEFT SHIFT is Present. LAB L100.2620 2.0-7.7 X10 3/uL Normal Absolute Neut 3.6 LAB L100.2720 0.83-4.51 X10 3/ul Normal Absolute Lymph 1.19 Performed By: #### L100.0100 #### [facility] [address] [facility] [address] [place], [place], [address] COMPREHENSIVE METABOLIC Collected: 09/23/2017 Status: F [facility] [place] Order Comment: DR WILLAMS ORDERED: BMP, CBCD DR LOVELL ORDERED: CMP, CBCD TYPE CODE TESTS RESULT OUT OF RANGE REFERENCE UNITS LAB L501.0100 74-106 mg/dL Normal GLU 103 Result Comment: Fasting Glucose result from 100 to 125 mg/dL suggests IMPAIRED HOMEOSTASIS per A.D.A. criteria. Please note revised GLUCOSE reference range effective 2017. LAB L501.1000 7-18 mg/dL Normal BUN 15 LAB L501.1100 0.70-1.30 mg/dL Normal CREAT,SERUM 1.18 Result Comment: The validity of the calculated GFR AND GFRAA in patients over 70 years has not been determined. Clinical correlation is essential. LAB L501.1110 >60 mL/min Normal EST GFR 64 Result Comment: Non- GFR Calc LAB L501.1115 >60 mL/min Normal EST GFR - AA 78 Result Comment: GFR Calc LAB L501.1300 10-20 RATIO Normal BUN/CRE 12.7 LAB L501.1500 6.4-8.2 g/dL T Normal PROT 7.2 LAB L501.1800 3.2-5.0 g/dL Normal ALB 3.6 LAB L501.1950 2.2-4.2 g/dL Normal GLOB 3.6 LAB L501.2000 0.9-2.4 RATIO Normal A/G 1.0 LAB L501.2200 8.5-10.1 mg/dL CA Normal 8.8 LAB L501.4100 15-37 U/L Normal AST 26 LAB L501.4305 45-117 U/L Normal ALK P 105 LAB L501.4405 16-61 U/L Normal ALT 32 LAB L501.4600 0.20-1.00 mg/dL T Normal BILI 0.30 LAB L501.5300 136-145 mmol/L NA Normal 144 LAB L501.5600 3.5-5.1 mmol/L K Normal 4.0 LAB L501.5900 98-107 mmol/L High CL 111 LAB L501.6100 21.0-32.0 mmol/L Normal CO2 24.0 LAB L501.6200 5-15 Normal GAP 9 Performed By: #### L500.4050 #### [facility] [address] [place], [address] BASIC METABOLIC Collected: 08/16/2017 Status: F Source: [place] PROFILE (BMP) 11:22 AM [facility] [place] CODE TESTS RESULT OUT OF RANGE REFERENCE UNITS LAB L501.0100 74-106 mg/dL Normal GLU 105 Result Comment: Fasting Glucose result from 100 to 125 mg/dL suggests IMPAIRED HOMEOSTASIS per A.D.A. criteria. Please note revised GLUCOSE reference range effective 2017. LAB L501.1000 7-18 mg/dL High BUN 20 LAB L501.1100 0.70-1.30 mg/dL High CREAT,SERUM 1.33 Result Comment: The validity of the calculated GFR AND GFRAA in patients over 70 years has not been determined. Clinical correlation is essential. LAB L501.1110 >60 mL/min Low EST GFR 56 Result Comment: Non- GFR Calc LAB L501.1115 >60 mL/min Normal EST GFR - AA 68 Result Comment: GFR Calc LAB L501.1300 10-20 RATIO Normal BUN/CRE 15.0 LAB L501.2200 8.5-10.1 mg/dL CA Normal 8.6 LAB L501.5300 136-145 mmol/L NA Normal 143 LAB L501.5600 3.5-5.1 mmol/L K Normal 4.2 LAB L501.5900 98-107 mmol/L High CL 109 LAB L501.6100 21.0-32.0 mmol/L Normal CO2 24.0 LAB L501.6200 5-15 Normal GAP 10 Performed By: #### L500.2500, L503.6150, L503.6550 #### [facility] [address] [place], [place], [id number] IRON Collected: 08/16/2017 Status: F Source: [place] 11:22 AM [facility] [place] CODE TESTS RESULT OUT OF RANGE REFERENCE UNITS LAB L503.6150 65-175 ug/dL High IRON 263 Performed By: #### L500.2500, L503.6150, L503.6550 #### [facility] [address] [place], [address] FERRITIN Collected: 08/16/2017 Status: F Source: [place] 11:22 AM [facility] [place] TYPE CODE TESTS RESULT OUT OF RANGE REFERENCE UNITS LAB L503.6550 26-388 ng/mL Normal FERRITIN 46 Performed By: #### L500.2500, L503.6150, L503.6550 #### [facility] [address] [place], [place], [id number] CBC W/DIFF, AUTOMATED Collected: 08/16/2017 Status: F Source: [place] 11:22 AM [facility] [place] TYPE CODE TESTS RESULT OUT OF RANGE REFERENCE UNITS LAB L100.1000 4.4-11.0 K/mm3 Normal WBC 6.4 LAB L100.1200 4.6-6.2 M/mm3 Low RBC 3.45 LAB L100.1300 13.0-16.5 g/dl Low HGB 11.7 LAB L100.1400 40-54 % Low HCT 36.7 LAB L100.1500 80-94 fL High MCV 106.4 LAB L100.1600 27.0-32.0 pg High MCH 33.9 LAB L100.1700 32-36 g/gl Low MCHC 31.9 LAB L100.1810 11.6-14.6 % High RDW CV 15.2 LAB L100.1820 35.1-43.9 fl High RDW SD 59.3 LAB L100.1900 150-450 K/mm3 Normal PLT 209 LAB L100.2000 6.2-12.0 fl Normal MPV 9.5 LAB L100.2100 47-70 % High NEUT% 71.5 LAB L100.2200 19-41 % Low LY% 16.6 LAB L100.2300 0-10 % Normal MONO% 9.5 LAB L100.2400 0-5 % Normal EO% 1.9 LAB L100.2500 0-1 % Normal BASO% 0.3 LAB L100.2550 0.0-0.9 % Normal IM GRAN % 0.200 Result Comment: IG% - Immature Granulocytes (promyelocytes, myelocytes and metamyelocytes) > 1% indicates that a LEFT SHIFT is Present. LAB L100.2620 2.0-7.7 X10 3/uL Normal Absolute Neut 4.6 LAB L100.2720 0.83-4.51 X10 3/ul Normal Absolute Lymph 1.07 Performed By: #### L100.0100 #### [facility] [address] [place], [place], [address] PULMONARY FUNCTION Observed: 08/05/2017 Status: F Source: [place] TEST 1:38 PM [facility] [place] [facility] Pulmonary Services/Neurology [address] [place] [address] MR#: [id number] Acct: [id number] Name: IMAN ANDREA Rep #: [id number] : 1945 72 From: Isaiah Blount MD Referring Dr: Simon Willams Status: REG CLI Ordering Dr: Date: Location: [facility] Sex: M C PULMONARY FUNCTION TEST RESULTS SPIROMETRY: Normal Spirometry. No significant measurable clinical response to Beta Agonist. LUNG VOLUMES: Normal lung volumes. DIFFUSION: Mild gas transfer abnormality. Abnormal gas transfer that corrects for measured alveolar volume. 08/05/17 1338 <Electronically signed by Isaiah Blount MD> Date Isaiah Blount MD CC: Simon Willams Date Dictated: 08/02/17 Date Transcribed: 08/02/17 1620 Binder Cutter Hand: LSVinicius Signed ABDOMEN COMPLETE Observed: 08/01/2017 Status: F Source: [place] 9:34 AM [facility] [place] [facility] Imaging Services [address] [place] [address] Abdomen Complete MR#: [id number] Acct: [id number] Name: IMAN ANDREA Rep #: [id number] : 1945 M 72 From: Sundeep Miller MD PCP: Simon Willams Status: REG CLI Study: Abdomen Complete Date of Exam: 08/01/17 Exam# [id number] Ordering Dr: Simon Willams MD STUDY: ABDOMINAL ULTRASOUND REASON FOR EXAM: Male, 72 years old. History of anemia. Possible retroperitoneal hemorrhage. TECHNIQUE: Transabdominal ultrasound was performed with real-time and static du scale imaging. TECHNICAL QUALITY: Limited. Examination limited by bowel gas. COMPARISON: None. FINDINGS: Liver: The liver measures 11.9 cm. There is increased echogenicity consistent with fatty infiltration. The bile ducts are within normal limits. There is hepatic color flow. The direction of portal flow is hepatopetal. There is no demonstrated mass lesion. Portal vein measurement: Gallbladder: The patient is status post cholecystectomy. Common Bile Duct (C.B.D.): The common bile duct measures 5.0 mm. Pancreas: Normal size of the head, body and tail of the pancreas. There is normal echogenicity of the pancreas. There is no demonstrated pancreatic mass or cyst. Spleen: Normal size of the spleen. The spleen measures 11.2 cm x 4.9 cm x 3.8 cm. Right Kidney: There is atrophy of the right kidney. The right kidney measures 8.2 cm x 3.6 cm x 3.8 cm. Normal renal cortex. The right cortex measures 1.0 cm. There is no demonstrated renal mass or cyst. There is no right hydronephrosis. Left Kidney: Normal size of the left kidney. The left kidney measures 13.0 cm x 5.8 cm x 6.0 cm. Normal renal cortex. The left cortex measures 1.9 cm. There is a 2.2 cm x 2.0 cm x 2.3 cm cyst in the mid medial portion of the kidney. There is no left hydronephrosis. Aorta: Atherosclerotic changes. I.V.C.: The IVC is patent. There is no ascites. US/Abdomen Complete IMPRESSION: Fatty infiltration of the liver. Mild atrophy of the right kidney. Left renal cyst. There is no evidence of retroperitoneal hemorrhage. Electronically Signed: Sundeep Miller MD at 15:53 EDT Tel [phone], Service support , CC: Simon Willams Binder Cutter Hand: Signed IRON Collected: 07/25/2017 Status: F Source: [place] 4:30 PM [facility] [place] TYPE CODE TESTS RESULT OUT OF RANGE REFERENCE UNITS LAB L503.6150 65-175 ug/dL Low IRON 51 Performed By: #### L503.6150, L503.6550 #### [facility] [address] [place], [address] FERRITIN Collected: 07/25/2017 Status: F Source: [place] 4:30 PM [facility] [place] TYPE CODE TESTS RESULT OUT OF REFERENCE UNITS RANGE LAB L503.6550 26-388 ng/mL Low FERRITIN 24 Performed By: #### L503.6150, L503.6550 #### [facility] [address] [place], [address] CBC W/DIFF, AUTOMATED Collected: 07/25/2017 Status: F Source: [place] 4:30 PM [facility] [place] TYPE CODE TESTS RESULT OUT OF RANGE REFERENCE UNITS LAB L100.1000 4.4-11.0 K/mm3 Normal WBC 5.2 LAB L100.1200 4.6-6.2 M/mm3 Low RBC 3.20 LAB L100.1300 13.0-16.5 g/dl Low HGB 11.0 LAB L100.1400 40-54 % Low HCT 34.1 LAB L100.1500 80-94 fL High MCV 106.6 LAB L100.1600 27.0-32.0 pg High MCH 34.4 LAB L100.1700 32-36 g/gl Normal MCHC 32.3 LAB L100.1810 11.6-14.6 % High RDW CV 14.9 LAB L100.1820 35.1-43.9 fl High RDW SD 57.3 LAB L100.1900 150-450 K/mm3 Normal PLT 199 LAB L100.2000 6.2-12.0 fl Normal MPV 9.0 LAB L100.2100 47-70 % Normal NEUT% 65.0 LAB L100.2200 19-41 % Normal LY% 21.3 LAB L100.2300 0-10 % High MONO% 11.2 LAB L100.2400 0-5 % Normal EO% 2.1 LAB L100.2500 0-1 % Normal BASO% 0.2 LAB L100.2550 0.0-0.9 % Normal IM GRAN % 0.200 Result Comment: IG% - Immature Granulocytes (promyelocytes, myelocytes and metamyelocytes) > 1% indicates that a LEFT SHIFT is Present. LAB L100.2620 2.0-7.7 X10 3/uL Normal Absolute Neut 3.4 LAB L100.2720 0.83-4.51 X10 3/ul Normal Absolute Lymph 1.11 Performed By: #### L100.0100 #### [facility] [address] [place], [address] VITAMIN B12 Collected: 07/25/2017 Status: F Source: [place] 4:30 PM [facility] [place] TYPE CODE TESTS RESULT OUT OF RANGE REFERENCE UNITS LAB L503.0105 211-911 pg/mL Normal Vitamin B12 331 Performed By: #### L503.0105 #### [facility] [address] [place], [address] OPERATIVE REPORT Observed: 2017 Status: F Source: [place] 9:47 AM [facility] [place] [facility] Medical Records Department [address] [place] [address] Operative Report 07/15/17 0941 MR#: [id number] Acct: [id number] Name: IMAN ANDREA Rep #: [id number] : 1945 72 From: Isaiah Freire MD PCP: Simon Willams Status: [facility] Location: [place] [address] Problem List (1) Anemia Status: Acute Qualifiers: Anemia type: unspecified type Qualified Code(s): D64.9 - Anemia, unspecified Report of Operation Date of Procedure: 07/15/17 Pre-Operative Diagnosis: Anemia, family history of colon cancer Post-Operative Diagnosis: Hiatal hernia, minimal antral erythema. Small polyp of the distal transverse colon, diverticulosis, internal hemorrhoids Surgery/Procedure Performed:: Esophagogastroduodenoscopy with antral and distal esophageal biopsies. Colonoscopy with snare polypectomy Description of Surgical Findings:: Timeout and informed consent was obtained. 72-year-old gentleman was taken to the endoscopy suite. His oropharynx anesthetized with Cetacaine. Because of medical comorbidities he underwent monitored anesthesia care. Flexible gastroscope was inserted into the esophageal inlet. Was advanced without difficulty. Proximal mid distal esophagus identified. A moderately large hiatal hernia noted. EG junction was at 35 cm. Very slight evidence of inflammation at that junction. Photographs were obtained. The scope was advanced in the stomach where a very minimal amount of erythema of the antrum was noted. The scope was advanced through the pylorus first and second portion the duodenum were inspected that was not remarkable. The scope was drawn back to the stomach retroflexed the EG junction and cardia was inspected. The hiatal hernia noted and photographs obtained. There was no evidence of any active bleeding. The scope was placed back in antegrade viewing position. Greater and lesser curvatures were carefully inspected. The scope was advanced back down to the antrum where biopsy was obtained for histopathology and H. pylori. Excess fluid and air was aspirated free the scope was withdrawn to the distal esophagus were distal esophageal biopsies were obtained. The scope was further withdrawn without additional abnormality. Digital rectal exam was performed. Moderate internal hemorrhoids noted slightly lax tone 2+ with prostate the flexible colonoscope then advanced with a somewhat tortuous sigmoid colon extensively involved with diverticulosis the scope was then advanced to the transverse colon and by placing the patient supine and with transabdominal pressure the scope was advanced to the cecum. The cecum and ileocecal valve was nicely achieved. Bowel prep was good with some liquid stool located throughout the colon but this could be aspirated. The scope was carefully withdrawn from the ascending and transverse colon without signs of source of blood loss. In the distal transverse colon there was a sessile 8 mm diameter polyp. This was snare cautery resected and retrieved. The scope was then further withdrawn the descending colon rather elongated there was extensive diverticulosis of the sigmoid and descending colon. No evidence of any active bleeding. The scope was retroflexed within the rectum and quite exuberant grade 3 internal hemorrhoids noted but again no active bleeding. Excess fluid and air was aspirated free was completed with it and tolerating it well. Impression Moderately large hiatal hernia. Minimal findings consistent with distal esophagitis. Minimal findings consistent with gastritis. No source of GI bleeding. Small sessile polyp in the distal transverse colon. Extensive descending and sigmoid diverticulosis. Grade 3 internal hemorrhoids. No current active source of GI blood loss. Patient's previous colonoscopy was February 21, 2014. Next screening colonoscopy recommended in 5 years based upon polyp and family history of colon cancer. The patient will be notified of pathology results as they become available. No source for blood loss identified. The patient will continue to follow up with his primary care physician Dr. iSmon Willams. Upper endoscopy was initiated at 0914. It was completed at 09. The colonoscopy was initiated at 0923. The cecum was reached at 0929. The procedure was completed at 0937. Isaiah Freire M.D., F.A.C.S. Type of Anesthesia:: MAC 07/15/17 0947 <Electronically signed by Isaiah Freire MD> Date Isaiah Freire MD CC: Isaiah Freire MD; Simon Willams Signed GASTRIC BIOPSY Observed: 2017 Status: F Source: [place] 12:00 AM [facility] [place] Patient: IMAN ANDREA : 1945 (72/M) Acct Num: [id number] Phys: Mouna ACEVES,Isaiah Unit Num: [id number] Loc: EN Specimen: [id number] Received: 07/15/17 - 1042 Spec Type: Gastric Bx TISSUES TISSUES: A. Gastrointestinal mucous membrane, NOS B. Esophageal mucous membrane C. Transverse colon COMMENT A. The results of immunohistochemistry for Helicobacter pylori will be reported separately ([id number]). GROSS DESCRIPTION A - Received in fixative is one container labeled with the patient's name and designated antral biopsy. The specimen consists of two irregular fragments of light talavera soft tissue that in aggregate measure 0.5 x 0.2 x 0.1 cm. The specimen is totally submitted in one cassette. B - Received in fixative is one container labeled with the patient's name and designated distal esophagus. The specimen consists of multiple minute fragments of light talavera soft tissue that in aggregate measure 1 x 1 x <0.1 cm. The specimen is totally submitted in one cassette. C - Received in fixative is one container labeled with the patient's name and designated distal transverse colon polyp. The specimen consists of three irregular fragments of light talavera soft tissue that in aggregate measure 0.6 x 0.5 x 0.1 cm. The specimen is totally submitted in one cassette. / AM:rg 07/15/17 TC:1 CPT: 83862 x3 HEADER OPERATION: EGD, colonoscopy PRE-OP DIAGNOSIS: Anemia TISSUE SUBMITTED: A Antral biopsy for H. pylori and path, B Distal esophageal biopsy, C Distal transverse colon polyp MICROSCOPIC DESCRIPTION Slides are reviewed. A. The specimen shows fragments of gastric mucosa with chronic inflammatory cell infiltrates in the lamina propria consisting of lymphocytes and plasma cells, consistent with mild chronic gastritis. MICROSCOPIC DIAGNOSIS A. Antral biopsy: Mild gastritis. See microscopic description and comment. B. Distal esophageal biopsy: Fragments of squamous epithelium, no pathologic diagnosis. C. Distal transverse colon polyp, biopsy: Fragments of tubular adenoma. SJ:ferdinand 07/18/17 Signed William Khanna 07/18/17 <signature on file> Performed By: #### PGASB #### [facility] [address] [place] [address]. [place], [place], [address] IMMUNOHISTOCHEMISTRY Observed: 2017 Status: F Source: [place] 12:00 AM [facility] [place] Patient: IMAN ANDREA : 1945 (72/M) Acct Num: [id number] Phys: Mouna ACEVES,Isaiah Unit Num: [id number] Loc: EN Specimen: [id number] Received: 07/18/171127 Spec Type: IMMUNO TISSUES TISSUES: A. Stomach, NOS SPECIMEN INFORMATION: Tissue Source: A Antral biopsy Clinical Info: Anemia Specimen Number: [id number] CPT code: 75082 METHODOLOGY: Deparaffinized sections of prefer/formalin-fixed tissue or PAP/DQ stained slides are incubated with monoclonal/polyclonal antibodies/oligonucleotide probes. Localization is made via biotin free immunoperoxidase method. Appropriate controls are performed and reacted as expected. Results on target cell population are indicated in the following table: RESULTS: ANTIBODY / CLONE RESULT Block A H Pylori (polyclonal) negative These tests were developed and their performance characteristics determined by [facility]. They may not have been cleared or approved by the U.S. Food and Drug Administration. The FDA has determined that such clearance or approval is not necessary. INTERPRETATION: A. Antral biopsy: Negative for Helicobacter pylori organisms. SJ:ferdinand 07/19/17 [facility] [address] [address] Signed William Jey 07/19/17 <signature on file> Performed By: #### PIMM #### [facility] [address] [place], [address] CARDIOLOGY VISIT Observed: 07/13/2017 Status: F Source: [place] REPORT 5:09 PM [facility] [place] [facility] [address] [place] [address] OFFICE VISIT Date of Service: 07/13/17 MR#: [id number] Acct: [id number] Name: IMAN ANDREA Rep #: [id number] : 1945 Provider: Kayode Esteban MD Age/Sex: 71/M Location: [facility] [place] Status: Signed HPI HPI Details: IMAN ANDREA, is a 71 M who presents to the office today for for outpatient cardiovascular follow-up. Since his last visit in January 2017 he states from a cardiac standpoint he has not experienced any chest discomfort concerning for angina pectoris. He has had no chest discomfort similar to when he had prior to his previous PTCA/stent performed in 2011. He has had no symptoms of orthopnea or PND. As you know he has had chronic bilateral lower extremity peripheral pitting edema for which she has been evaluated and cared for by peripheral vascular surgery. He notes overall it has improved. He continues to wear support stockings. There has been no near syncope or syncope. He has had fatigue and shortness of breath. He has been diagnosed with anemia. He is pending an upcoming colonoscopy. He did undergo evaluation in April 2017. He had an ECG at [facility]. He was in sinus rhythm with a leftward axis. He had a transthoracic echocardiogram performed in February of 2017. His left ventricle was thought to be normal with an LVEF of 65%. He had aortic valve sclerosis. He did have a stress test performed on 06/01/2016. This was a pharmacologic stress nuclear imaging study. At that time he had no myocardial perfusion changes consider diagnostic for associated stress-induced myocardial ischemia or previous [place]. His gated LVEF was 68%. Also, he had his lipid labs performed in February 2017. His lipid profile appeared to be under good control at the time. Intake Vital Signs07/13/17 Height 5 ft 9 in 07/13/17 Weight: 216 lb 07/13/17 Body Mass Index (BMI) 31.8 07/13/17 Blood Pressure 124/72 Intake Visit Reasons: 6 M FU Allergies Antihistamines - Ethylenediamine Adverse Reaction (Verified 07/13/17 16:21) Other Medications Atorvastatin Calcium [Lipitor] 40 mg PO QHS 12/18/12 [History Confirmed 07/13/17] Enalapril Maleate [Vasotec] 5 mg PO BID 12/18/12 [History Confirmed 07/13/17] Omeprazole [Prilosec] 20 mg PO DAILY 12/18/12 [History Confirmed 07/13/17] Tamsulosin HCl [Flomax] 0.4 mg PO DAILY 12/18/12 [History Confirmed 07/13/17] Pramipexole Di-HCl [Mirapex] 2 mg PO QHS 04/09/15 [History Confirmed 07/13/17] metoprolol succinate ER 25 mg tablet,extended release 24 hr 25 mg PO QDAY 03/17/17 [History Confirmed 07/13/17] folic acid 1 mg tablet 2 mg PO QDAY tab 03/18/17 [History Confirmed 07/13/17] modafinil 100 mg tablet 200 mg PO QDAY tab 03/18/17 [History Confirmed 07/13/17] tramadol 50 mg tablet 100 mg PO Q6H PRN tab 03/18/17 [History Confirmed 07/13/17] Aspirin 325 mg PO DAILY 04/29/17 [History Confirmed 07/13/17] albuterol sulfate HFA 90 mcg/actuation aerosol inhaler 2 puff INHALATION Q6H PRN 07/07/17 [History Confirmed 07/13/17] calcium carbonate-vitamin D3 600 mg (1,500 mg)-400 unit capsule 2 cap PO DAILY cap 07/07/17 [History Confirmed 07/13/17] cefdinir 300 mg capsule 300 mg PO Q8H cap 07/07/17 [History Confirmed 07/13/17] ferrous sulfate 324 mg (65 mg iron) tablet,delayed release 324 mg PO BID tab 07/07/17 [History Confirmed 07/13/17] triamcinolone acetonide 55 mcg nasal spray aerosol 2 spray INTRANASAL QDAY 07/07/17 [History Confirmed 07/13/17] methotrexate sodium 2.5 mg tablet 5 mg PO QWEEK tab 07/13/17 [History Confirmed 07/13/17] nitroglycerin 0.4 mg sublingual tablet 0.4 mg SUBLINGUAL Q5M PRN #90 tab 07/13/17 [Rx Confirmed 07/13/17] PFSH Medical History Anemia (Acute) Presence of stent in coronary artery (Chronic 09/21/11) Rheumatoid arthritis (Chronic) Hyperlipidemia (Acute) BPH (benign prostatic hyperplasia) (Chronic) Atherosclerosis of [place] coronary artery of [place] heart without angina pectoris (Chronic) RENALDO (obstructive sleep apnea) (Chronic) Nephrolithiasis (Chronic) Diabetes mellitus (Chronic) Hiatal hernia (Chronic) Arthritis (Chronic) Essential (primary) hypertension (Chronic) Surgical History History of back surgery (Resolved 04/19/17) Postsurgical percutaneous transluminal coronary angioplasty (PTCA) status (Chronic 09/21/11) History of cholecystectomy (Chronic) History of total left knee replacement (Chronic) Hx of appendectomy (Chronic) History of total right knee replacement (TKR) (Chronic 03/17/16) Family History Father CAD (coronary artery disease) Mother CAD (coronary artery disease) Breast cancer Colon cancer Diabetes Brother CAD (coronary artery disease) CVA (cerebral vascular accident) Diabetes Social History Smoking Status: Never smoker alcohol intake: never substance use type: does not use caffeine: Yes Type: carbonated beverages Number of servings: 1 what type of physical activity do you participate in: none seatbelt use: always do you feel safe at home: Yes ROS Const Const: Positive for weakness and fatigue; negative for weight gain, weight loss, frequent falls or excessive sweating Eyes Eyes: Negative for change in vision, blurry vision or transient loss of vision ENT ENT: Positive for balance problems (ambulates with cane); negative for dizziness Cardio Chest Pain: No Edema: Bilateral (patient wearing compression hose, elevating as much as possible) Muscle aches with walking: None Additional Details: Patient has noted fatigue and weakness due to anemia. Patient to have colonoscopy TuesdayJuly [address] Freire. Resp Respiratory: Positive for SOB with activity (New finding for patient, has gone thru ATB's with PCP, continues with SOB) and wheezing; negative for SOB at rest GI GI: Negative vomiting or vomiting blood/hematemesis : Negative for hematuria Musc Musc: Positive for balance problems (ambulates with cane); negative for muscle aches/ myalgia, muscle weakness or joint pain Skin Skin: Negative non-healing lesions or rash Neuro Neuro: Positive for weakness; negative for blurry vision, dizziness, lightheadedness, frequent falls or orthostatic symptoms Redd Hematologic/Lymphatic: Negative for easy bleeding Endo Endo: Positive for fatigue; negative for excessive sweating Psych Psych: Negative for anxiety or depression Allergy Allergy/Immunology: Negative for hives, Negative for rash Supplemental Info He underwent a diagnostic cardiac catheterization on 09/21/[address] [facility]. Results are as noted below. FINAL IMPRESSION 1. Elevated left ventricular end diastolic pressure compatible with decreased diastolic corn p1 i a nce. 2. Left ventricle: A, Normal left ventricular size, wall motion and systolic function. B. Estimated LVEF of 60 percent. 3. Left main coronary artery. A. Large short vessel. B. Proximal 10-25 percent eccentric appearing stenosis. 4. Left anterior descending coronary. A. Proximal diffuse minimal luminal irregularities. B. Proximal second septal pvc monitor (bifurcating vessel) with 50 percent appearing stenosis. 5. Left circumflex coronary. A. Proximal diffuse minimal luminal irregularities. 6. Right coronary artery. A. Large dominant vessel. B. Proximal discrete 75 percent concentric appearing stenosis. C. Proximal to mid to distal diffuse minimal luminal irregularities. He under went subsequent PCI at [facility] on 09/21/2011. The results are as noted below. Right Coronary Artery - There was a 70% discrete stenosis in the proximal right coronary artery. A drug eluting, PROMUS 4.0 x 12 mm stent was placed in the proximal right coronary artery and post-dilated to 5.0 mm. Post-procedure stenosis was 0%. AMILCAR flow was grade 3 before intervention and grade 3 post intervention. Excellent result post PCI in a very large RCA. Assessment AND Plan 1. Atherosclerosis of [place] coronary artery of [place] heart without angina pectoris I25.10 PTCA/SAMANTHA to prox RCA 09/21/11 Plan At the present time he is going to continue his current medical management. He will continue risk factor evaluation and care as deemed appropriate. It was not felt he required additional cardiovascular diagnostic studies. 2. S/P PTCA (percutaneous transluminal coronary angioplasty) Z98.61 PTCA/SAMANTHA to prox RCA 09/21/11 Plan His previous PCI is as noted above. He will continue risk factor modification and medical management. 3. Hyperlipidemia E78.5 Plan His lipid profile was performed in February 2017. It was under good control. This will be followed over 4. Essential (primary) hypertension I10 Plan His blood pressure appears to be under good control. Again he will continue medical therapy and follow-up. 5. Iron deficiency anemia due to chronic blood loss D50.0 Plan He does have anemia. He states the etiology is unclear. He is on iron supplement. He is pending further evaluation with upcoming colonoscopy procedure. 6. RENALDO (obstructive sleep apnea) G47.33 Plan He does have sleep apnea. He follows with Dr. Blount of sleep medicine for this. Plan Detail Other Medications New: Additional Comments He will be scheduled for future outpatient cardiovascular follow-up. In the interim, depending upon his noncardiac evaluation, if there is any concern going forward that his noncardiac evaluation was unrevealing with respect to his fatigue or shortness of breath/dyspnea and there are still cardiovascular concerns involving his underlying CAD history, despite his lack of other symptoms, then he may need further evaluation and care. Thank you for allowing me to participate in the care of your patient. Please don't hesitate to call if any issues arise. This note was generated using a voice recognition system and there may be incorrect words, spelling or punctuation that were not noted when reviewing the office note prior to saving. Follow Up 6 Months (PFM) Coding Level of Care Code Off vis,est,level 3 Diagnoses Atherosclerosis of [place] coronary artery of [place] heart without angina pectoris I25.10 S/P PTCA (percutaneous transluminal coronary angioplasty) Z98.61 Hyperlipidemia E78.5 Essential (primary) hypertension I10 Iron deficiency anemia due to chronic blood loss D50.0 Anemia type: iron deficiency Iron deficiency anemia type: chronic blood loss RENALDO (obstructive sleep apnea) G47.33 Coding Level of Care Code Off vis,est,level 3 Diagnoses Atherosclerosis of [place] coronary artery of [place] heart without angina pectoris I25.10 S/P PTCA (percutaneous transluminal coronary angioplasty) Z98.61 Hyperlipidemia E78.5 Essential (primary) hypertension I10 Iron deficiency anemia due to chronic blood loss D50.0 Anemia type: iron deficiency Iron deficiency anemia type: chronic blood loss RENALDO (obstructive sleep apnea) G47.33 07/13/17 1709 <Electronically signed by Kayode Esteban MD> Date Kayode Esteban MD Cosigner Signature: Date (if applicable) CC: Simon Willams SURGERY VISIT REPORT Observed: 07/07/2017 Status: F Source: [place] 9:[address] 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 Is patient in pain?: No Allergies Antihistamines - Ethylenediamine Adverse Reaction (Verified 07/07/17 08:56) Other Medications Atorvastatin Calcium [Lipitor] 40 mg PO QHS 12/18/12 [History Confirmed 07/07/17] Enalapril Maleate [Vasotec] 5 mg PO BID 12/18/12 [History Confirmed 07/07/17] Omeprazole [Prilosec] 20 mg PO DAILY 12/18/12 [History Confirmed 07/07/17] Tamsulosin HCl [Flomax] 0.4 mg PO DAILY 12/18/12 [History Confirmed 07/07/17] Nitroglycerin [Nitrostat] 0.4 mg SUBLINGUAL Q5M PRN 04/09/15 [History Confirmed 07/07/17] Pramipexole Di-HCl [Mirapex] 2 mg PO QHS 04/09/15 [History Confirmed 07/07/17] metoprolol succinate ER 25 mg tablet,extended release 24 hr 25 mg PO QDAY 03/17/17 [History Confirmed 07/07/17] folic acid 1 mg tablet 2 mg PO QDAY tab 03/18/17 [History Confirmed 07/07/17] methotrexate sodium 2.5 mg tablet 6 mg PO QWEEK tab 03/18/17 [History Confirmed 07/07/17] modafinil 100 mg tablet 200 mg PO QDAY tab 03/18/17 [History Confirmed 07/07/17] tramadol 50 mg tablet 100 mg PO Q6H PRN tab 03/18/17 [History Confirmed 07/07/17] Aspirin 325 mg PO DAILY 04/29/17 [History Confirmed 07/07/17] albuterol sulfate HFA 90 mcg/actuation aerosol inhaler 2 puff INHALATION Q6H 07/07/17 [History Confirmed 07/07/17] calcium carbonate-vitamin D3 600 mg (1,500 mg)-400 unit capsule 1 cap PO BID cap 07/07/17 [History Confirmed 07/07/17] cefdinir 300 mg capsule 300 mg PO Q8H cap 07/07/17 [History Confirmed 07/07/17] ferrous sulfate 324 mg (65 mg iron) tablet,delayed release 324 mg PO QDAY tab 07/07/17 [History Confirmed 07/07/17] triamcinolone acetonide 55 mcg nasal spray aerosol 2 spray INTRANASAL QDAY 07/07/17 [History Confirmed 07/07/17] [facility] Medical History Presence of stent in coronary artery (Chronic 09/21/11) Rheumatoid arthritis (Chronic) Hyperlipidemia (Acute) BPH (benign prostatic hyperplasia) (Chronic) Atherosclerosis of [place] coronary artery of [place] heart without angina pectoris (Chronic) RENALDO (obstructive sleep apnea) (Chronic) Nephrolithiasis (Chronic) Diabetes mellitus (Chronic) Hiatal hernia (Chronic) Arthritis (Chronic) Essential (primary) hypertension (Chronic) Surgical History History of back surgery (Acute) Postsurgical percutaneous transluminal coronary angioplasty (PTCA) status (Chronic 09/21/11) History of cholecystectomy (Chronic) History of total left knee replacement (Chronic) Hx of appendectomy (Chronic) History of total right knee replacement (TKR) (Chronic 03/17/16) Family History Father CAD (coronary artery disease) Mother CAD (coronary artery disease) Breast cancer Colon cancer Diabetes Brother CAD (coronary artery disease) CVA (cerebral vascular accident) Diabetes Social History Smoking Status: Never smoker alcohol intake: never substance use type: does not use caffeine: Yes Type: carbonated beverages Number of servings: 1 what type of physical activity do you participate in: none seatbelt use: always do you feel safe at home: Yes HPI HPI HPI: IMAN ANDREA, is a 71 M who presents to the office today for surgical consultation regarding anemia. He previously had a hemoglobin of 13.4 and then most recently July 01, 2017 it was 10.9. He actually states that this was an improvement. His BUN is 18 his creatinine is 1.15. He is on iron supplementation. He did have back surgery for sciatica March 2017. He did have a previous colonoscopy done by Dr. Cole Perez February 21, 2014. This demonstrated 2 sessile polyps in the mid transverse colon and in the proximal ascending colon. There was a sessile polyp in the rectum. Multiple diverticula were identified. The pathology of the proximal ascending colon polyp was colonic mucosa. Mid transverse colon polyp tubular adenoma. Rectal polyp tubular adenoma. The patient does have a family history of colon cancer in his mother. Also then more recently on February 06, 2015 because of atypical chest pain the patient had an upper endoscopy also done by Dr. Perez. A medium sized hiatal hernia was noted. Erythema of the antrum noted. Biopsies showed gastric antral type mucosa with reactive gastropathy. H. pylori was negative. The patient currently is feeling fatigued. He is dyspneic on exertion. He denies abdominal pain. He has had weight gain not weight loss. He denies previous history of myocardial infarction stroke or diabetes. He is on methotrexate and is been on that for 1 year. He otherwise denies gastric irritants. He has never stated that he had active peptic ulcer disease. ROS General General: Yes weight change and fatigue; no appetite, colon cancer, breast cancer or weakness HEENT HEENT: Yes eye surgery; no difficulty swallowing, eye injury, swollen glands or hoarseness Endo Endocrine: No thyroid disease, diabetes mellitus, thyroid cancer, Hair loss, heat intolerance or cold intolerance Skin Skin: No rash or changing moles Musc Musculoskeletal: Yes back problems, arthritis and rheumatoid arthritis; no gout or joint pain Cardio Cardiovascular: Yes high blood pressure and heart stent; no murmur, pacemaker, heart disease, atrial fibrillation, heart attack, palpitations, shortness of breat with exertion or chest pain Psych Psychiatric: No depression, anxiety or hearing voices Resp Respiratory: Yes shortness of breath, Yes sleep apnea, No cough, No COPD, No asthma, No emphysema, No wheezing Gastro Gastrointestinal: No abdominal pain, No nausea or vomiting, No diarrhea, No constipation, No blood in stool, Yes acid reflux, Yes hemorrhoids, No ulcers, No gallbladder problem, Yes black,tarry stools Redd Hematologic: Yes blood thinners (Aspirin 325mg ), No blood disorders, No bleeding, Yes anemia, Yes blood clots Neuro Neurologic: No system reviewed and no additional complaints, except as docu, No as per HPI, No abnormal walking, No abnormal hearing, No abnormal movements, No abnormal speech, No behavioral changes, No burning sensations, No confusion, No seizure-like activity, No unsteadiness, No dizziness, No localized weakness, No frequent falls, No headache(s), No lack of coordination, No loss of vision, No memory loss, Yes numbness, No other visual disturbances, No radiating pain, No restless legs, No sensory deficit, No fainting, Yes tingling, No tremor(s), No weakness, No other Exam Const General: cooperative, ill appearing, other (He appears pale and weak) Nutritional Appearance: overweight Orientation: alert, awake, oriented x3 HENMT Head: normal to inspection Eyes General: appearance normal, both eyes and all related structures Neck Neck: other (Stiff neck) Carotids: normal carotid upstroke, no bruits Chest Chest palpation AND inspection: normal inspection of the chest Resp Effort AND Inspection: normal respiratory effort Auscultation: clear to auscultation bilaterally (Diminished respiratory excursion) Cardio Rate: regular rate Rhythm: regular rhythm Heart Sounds: no murmurs GI Other: Overweight, well-healed umbilical incision from her remote scopic cholecystectomy, no hepatosplenomegaly Musc Cervical Spine: abnormal servical ROM (Diminished range of motion) Skin General: no rashes or lesions noted Extrem Other: Patient has bilateral lower extremity tight compressive hose on with persistent left lower extremity edema Psych Affect: normal affect Assessment AND Plan 1. Iron deficiency anemia due to chronic blood loss D50.0 Plan Patient who at age 71 has a significant anemia. Unclear whether this is related to his back surgery or rheumatoid arthritis medications. He has a known history of a sizable hiatal hernia. He has a known history of colonic polyps. He has a family history of colon cancer in his mother. I am recommending to him a esophagogastroduodenoscopy with possible biopsy and colonoscopy with possible biopsy or polypectomy is indicated. He is aware of the technique, benefits, risks, alternatives. He has had an opportunity to ask and have questions answered. I believe that he is at higher interventional risk. I will perform this with monitored anesthesia care. We will try to expedite his investigation. I very much appreciate the kind opportunity of assisting with his surgical care. Cc: Dr. Simon Freire M.D., F.A.C.S. Plan Detail Other Medications Discontinued: Coding Level of Care Code Off vis,new,level 2 Diagnoses Iron deficiency anemia due to chronic blood loss D50.0 Anemia type: iron deficiency Iron deficiency anemia type: chronic blood loss 07/07/17 0929 <Electronically signed by Isaiah Freire MD> Date Isaiah Freire MD Cosigner Signature: Date (if applicable) CC: Simon Willams COMPREHENSIVE METABOLIC Collected: 07/01/2017 Status: F Source: [place] 3:30 PM [facility] [place] [facility] Order Comment: DR WILLAMS ORDERED: CBCD, MARIMAR, FE DR LOVELL ORDERED: CBCD, CMP TYPE CODE TESTS RESULT OUT OF RANGE REFERENCE UNITS LAB L501.0100 74-106 mg/dL Normal GLU 96 Result Comment: Please note revised GLUCOSE reference range effective 2017. LAB L501.1000 7-18 mg/dL Normal BUN 18 LAB L501.1100 0.70-1.30 mg/dL Normal CREAT,SERUM 1.15 Result Comment: The validity of the calculated GFR AND GFRAA in patients over 70 years has not been determined. Clinical correlation is essential. LAB L501.1110 >60 mL/min Normal EST GFR 66 Result Comment: Non- GFR Calc LAB L501.1115 >60 mL/min Normal EST GFR - AA 80 Result Comment: GFR Calc LAB L501.1300 10-20 RATIO Normal BUN/CRE 15.7 LAB L501.1500 6.4-8.2 g/dL T Normal PROT 6.9 LAB L501.1800 3.2-5.0 g/dL Normal ALB 3.5 LAB L501.1950 2.2-4.2 g/dL Normal GLOB 3.4 LAB L501.2000 0.9-2.4 RATIO Normal A/G 1.0 LAB L501.2200 8.5-10.1 mg/dL Low CA 8.0 LAB L501.4100 15-37 U/L Normal AST 27 LAB L501.4305 45-117 U/L Normal ALK P 110 LAB L501.4405 16-61 U/L Normal ALT 26 LAB L501.4600 0.20-1.00 mg/dL Low T BILI 0.10 LAB L501.5300 136-145 mmol/L NA Normal 143 LAB L501.5600 3.5-5.1 mmol/L K Normal 4.0 LAB L501.5900 98-107 mmol/L High CL 111 LAB L501.6100 21.0-32.0 mmol/L Normal CO2 24.0 LAB L501.6200 5-15 Normal GAP 8 Performed By: #### L500.4050, L503.6150, L503.6550 #### [facility] [address] [place], [address] IRON Collected: 07/01/2017 Status: F Source: [place] 3:30 PM [facility] [place] [facility] Order Comment: DR WILLAMS ORDERED: CBCD, MARIMAR, FE DR LOVELL ORDERED: CBCD, CMP TYPE CODE TESTS RESULT OUT OF RANGE REFERENCE UNITS LAB L503.6150 65-175 ug/dL Normal IRON 65 Performed By: #### L500.4050, L503.6150, L503.6550 #### [facility] [address] [place], [address] FERRITIN Collected: 07/01/2017 Status: F Source: [place] 3:30 PM [facility] [place] [facility] Order Comment: DR WILLAMS ORDERED: CBCD, MARIMAR, FE DR LOVELL ORDERED: CBCD, CMP TYPE CODE TESTS RESULT OUT OF RANGE REFERENCE UNITS LAB L503.6550 26-388 ng/mL Normal FERRITIN 36 Performed By: #### L500.4050, L503.6150, L503.6550 #### [facility] [address] [facility] [place], [place], [id number] CBC W/DIFF, AUTOMATED Collected: 07/01/2017 Status: F Source: [place] 3:30 PM [facility] [place] [facility] Order Comment: DR WILLAMS ORDERED: CBCD, MARIMAR, FE DR LOVELL ORDERED: CBCD, CMP TYPE CODE TESTS RESULT OUT OF RANGE REFERENCE UNITS LAB L100.1000 4.4-11.0 K/mm3 Normal WBC 5.9 LAB L100.1200 4.6-6.2 M/mm3 Low RBC 3.21 LAB L100.1300 13.0-16.5 g/dl Low HGB 10.9 LAB L100.1400 40-54 % Low HCT 34.5 LAB L100.1500 80-94 fL High MCV 107.5 LAB L100.1600 27.0-32.0 pg High MCH 34.0 LAB L100.1700 32-36 g/gl Low MCHC 31.6 LAB L100.1810 11.6-14.6 % High RDW CV 15.6 LAB L100.1820 35.1-43.9 fl High RDW SD 60.2 LAB L100.1900 150-450 K/mm3 Normal PLT 257 LAB L100.2000 6.2-12.0 fl Normal MPV 9.3 LAB L100.2100 47-70 % Normal NEUT% 62.8 LAB L100.2200 19-41 % Normal LY% 23.5 LAB L100.2300 0-10 % High MONO% 10.8 LAB L100.2400 0-5 % Normal EO% 2.6 LAB L100.2500 0-1 % Normal BASO% 0.3 LAB L100.2550 0.0-0.9 % Normal IM GRAN % 0.000 Result Comment: IG% - Immature Granulocytes (promyelocytes, myelocytes and metamyelocytes) > 1% indicates that a LEFT SHIFT is Present. LAB L100.2620 2.0-7.7 X10 3/uL Normal Absolute Neut 3.7 LAB L100.2720 0.83-4.51 X10 3/ul Normal Absolute Lymph 1.38 Performed By: #### L100.0100 #### [facility] [address] [place], [address] CBC W/DIFF, AUTOMATED Collected: 06/20/2017 Status: C Source: [place] 1:59 PM [facility] [place] [facility] Order Comment: PLEASE ADD PERIPHERAL SMEAR TYPE CODE TESTS RESULT OUT OF RANGE REFERENCE UNITS LAB L100.1000 4.4-11.0 K/mm3 Normal WBC 6.6 LAB L100.1200 4.6-6.2 M/mm3 Low RBC 3.22 LAB L100.1300 13.0-16.5 g/dl Low HGB 10.8 LAB L100.1400 40-54 % Low HCT 34.2 LAB L100.1500 80-94 fL High MCV 106.2 LAB L100.1600 27.0-32.0 pg High MCH 33.5 LAB L100.1700 32-36 g/gl Low MCHC 31.6 LAB L100.1810 11.6-14.6 % High RDW CV 16.2 LAB L100.1820 35.1-43.9 fl High RDW SD 62.7 LAB L100.1900 150-450 K/mm3 Normal PLT 215 LAB L100.2000 6.2-12.0 fl Normal MPV 9.0 LAB L100.2100 47-70 % Normal NEUT% 69.9 LAB L100.2200 19-41 % Low LY% 18.1 LAB L100.2300 0-10 % Normal MONO% 9.0 LAB L100.2400 0-5 % Normal EO% 2.3 LAB L100.2500 0-1 % Normal BASO% 0.5 LAB L100.2550 0.0-0.9 % Normal IM GRAN % 0.200 Result Comment: IG% - Immature Granulocytes (promyelocytes, myelocytes and metamyelocytes) > 1% indicates that a LEFT SHIFT is Present. LAB L100.2620 2.0-7.7 X10 3/uL Normal Absolute Neut 4.6 LAB L100.2720 0.83-4.51 X10 3/ul Normal Absolute Lymph 1.19 LAB L100.9900 Normal PATH REV Reviewed Result Comment: Macrocytic anemia. Clinical correlation necessary. William Khanna M.D. 06/22/17 AMENDED REPORT 06/22/17 1319 PATH REV previously reported as: Lenora antunez Performed By: #### L100.0100 #### [facility] [address] [place], [address] COMPREHENSIVE METABOLIC Collected: 06/20/2017 Status: F Source: [facility] 1:59 PM [facility] [place] [facility] TYPE CODE TESTS RESULT OUT OF RANGE REFERENCE UNITS LAB L501.0100 74-106 mg/dL High GLU 132 Result Comment: Fasting Glucose result greater than or equal to 126 mg/dL suggests DIABETES MELLITUS per A.D.A. criteria. Please note revised GLUCOSE reference range effective 2017. LAB L501.1000 7-18 mg/dL Normal BUN 18 LAB L501.1100 0.70-1.30 mg/dL Normal CREAT,SERUM 1.26 Result Comment: The validity of the calculated GFR AND GFRAA in patients over 70 years has not been determined. Clinical correlation is essential. LAB L501.1110 >60 mL/min Normal EST GFR 60 Result Comment: Non- GFR Calc LAB L501.1115 >60 mL/min Normal EST GFR - AA 72 Result Comment: GFR Calc LAB L501.1300 10-20 RATIO Normal BUN/CRE 14.3 LAB L501.1500 6.4-8.2 g/dL T Normal PROT 6.8 LAB L501.1800 3.2-5.0 g/dL Normal ALB 3.3 LAB L501.1950 2.2-4.2 g/dL Normal GLOB 3.5 LAB L501.2000 0.9-2.4 RATIO Normal A/G 0.9 LAB L501.2200 8.5-10.1 mg/dL Low CA 8.3 LAB L501.4100 15-37 U/L Normal AST 24 LAB L501.4305 45-117 U/L Normal ALK P 113 LAB L501.4405 16-61 U/L Normal ALT 25 Result Comment: Please note revised ALT reference range effective 2017. LAB L501.4600 0.20-1.00 mg/dL Normal T BILI 0.20 LAB L501.5300 136-145 mmol/L Normal NA 141 LAB L501.5600 3.5-5.1 mmol/L Normal K 4.3 LAB L501.5900 98-107 mmol/L High CL 108 LAB L501.6100 21.0-32.0 mmol/L Normal CO2 25.0 LAB L501.6200 5-15 Normal GAP 8 Performed By: #### L500.4050, L503.6150, L503.6550 #### [facility] [address] [place], [place], [address] IRON Collected: 06/20/2017 Status: F Source: [place] 1:59 PM [facility] [place] [facility] TYPE CODE TESTS RESULT OUT OF RANGE REFERENCE UNITS LAB L503.6150 65-175 ug/dL Low IRON 60 Performed By: #### L500.4050, L503.6150, L503.6550 #### [facility] [address] [place], [place], [address] FERRITIN Collected: 06/20/2017 Status: F Source: [place] 1:59 PM [facility] [place] [facility] TYPE CODE TESTS RESULT OUT OF RANGE REFERENCE UNITS LAB L503.6550 26-388 ng/mL Normal FERRITIN 33 Performed By: #### L500.4050, L503.6150, L503.6550 #### [facility] [address] [place], [place], [address] BNP,B-TYPE NATRIURETIC Collected: 06/20/2017 Status: F Source: [place] 1:59 PM [facility] [place] [facility] TYPE CODE TESTS RESULT OUT OF RANGE REFERENCE UNITS LAB L503.6620 0-100 pg/mL Normal B-TYPE 37.5 ARCHIE PEP Performed By: #### L503.6620 #### [facility] [address] [place], [address] CHEST PA AND LATERAL Observed: 06/01/2017 Status: F Source: [place] 12:52 PM [facility] [place] [facility] Imaging Services [address] [place] [address] Chest PA and Lateral MR#: [id number] Acct: [id number] Name: IMAN ANDREA Rep #: [id number] : 1945 M 71 From: Romaine Cano MD PCP: Simon Willams Status: REG CLI Study: Chest PA and Lateral Date of Exam: 06/01/17 Exam# [id number] Ordering Dr: Simon Willams MD STUDY: X-RAY CHEST REASON FOR EXAM: Male, 71 years old. Wheezing and cough. TECHNIQUE: Frontal and lateral views of the chest. COMPARISON: CT of the chest 11/16/2016. FINDINGS: The lungs are clear and expanded. There is no demonstrated pleural abnormality. Normal size heart. Normal mediastinum and wendy. Normal visualized pulmonary arteries. Normal visualized aortic arch and descending thoracic aorta. Moderate hiatal hernia. There are diffuse degenerative changes of the visualized thoracic spine. Normal visualized ribs, clavicles, and shoulders. There is no demonstrated abnormality of the visualized soft tissue structures of the upper abdomen. RAD/Chest PA and Lateral IMPRESSION: No acute chest disease. Electronically Signed: Romaine Cano MD at 8:38 EDT , Service support , CC: Simon Willams Binder Cutter Hand: Signed WOUND CTR HISTORY Observed: 05/30/2017 Status: F Source: [place] AND PHYSICAL 1:45 PM [facility] [place] [facility] [address] [place] [address] Wound Ctr History AND Physical 05/30/17 1338 MR#: [id number] Acct: [id number] Name: IMAN ANDREA Rep #: [id number] : 1945 71 From: Matthew Martinez MD PCP: Simon Willams Status: REG RCR Y Location: WC (1) Presence of stent in coronary artery Status: Chronic Current Visit: No Code(s): Z95.5 - Presence of coronary angioplasty implant and graft Comment: PTCA/SAMANTHA to prox RCA 09/21/11 (2) GERD (gastroesophageal reflux disease) Status: Chronic Current Visit: No Code(s): K21.9 - Gastro- esophageal reflux disease without esophagitis (3) Swelling of lower extremity Status: Chronic Current Visit: Yes Code(s): M79.89 - Other specified soft tissue disorders (4) Edema of both legs Status: Chronic Current Visit: Yes Code(s): R60.0 - Localized edema (5) History of kidney stones Status: Chronic Current Visit: No Code(s): Z87.442 - Personal history of urinary calculi (6) Overweight Status: Chronic Current Visit: No Code(s): E66.3 - Overweight (7) Pre-op evaluation Status: Chronic Current Visit: No Code(s): Z01.818 - Encounter for other preprocedural examination (8) Atherosclerosis of [place] coronary artery of eastern [place] heart without angina pectoris Status: Chronic Current Visit: No Code(s): I25.10 - Atherosclerotic heart disease of [place] coronary artery without angina pectoris (9) Atherosclerosis of [place] coronary artery of [place] heart without angina pectoris Status: Chronic Current Visit: No Code(s): I25.10 - Atherosclerotic heart disease of [place] coronary artery without angina pectoris Comment: PTCA/SAMANTHA to prox RCA 09/21/11 History of Present Illness Date of Service: 05/30/17 Chief Complaint: Chronic swelling and edema in the lower extremities bilaterally History of Wound: This is a 71-year-old male with a long-standing history of swelling and edema in his lower extremities bilaterally. This has been ongoing for many years. It has become more severe recently. The patient has a recent history of lumbar disc disease, and underwent lumbar laminectomy at the [facility] on April 19, 2017. As a result, the patient's activity level diminished considerably during the postoperative period. He subsequently noted enhanced swelling and edema in his lower extremities. According to the patient, his lower extremity swelling is worse late in the day. He sleeps on a flat mattress at night, though often with the head of bed elevated due to gastroesophageal reflux disease. He sits for long periods of time idlely during daytime hours. He admits to being relatively inactive. He denies a history of thrombophlebitis in the past. He has undergone no prior vein procedures in the past. His primary care physician recently placed him on Lasix for diuresis purposes, which has failed to have any favorable impact in his lower extremity swelling. Patient was evaluated in the emergency department at [facility] on April 29, 2017, due to his lower extremity swelling. At that time, a venous duplex examination was negative for deep vein thrombosis bilaterally. Laboratory results were as follows: White blood count 7.4, hemoglobin 10.5, medical 32.6, it was 321,000, sodium 140, potassium 3.9, chloride 107, BUN 14, creatinine 1.04, glucose 100, calcium 8.0, AST 29, ALT 33, alkaline phosphatase 97, total protein 6.6, albumin 2.9. Since patient's initial visit, there has been significant improvement. We implemented the use of compression to the lower extremities by means of 3M 2 layer compression wrap, changed twice weekly. We then transitioned to the use of graduated compression stockings of 20-30 mmHg compression. Patient has also been modifying his daily routine, elevating his legs even during daytime hours. He has also been advised to avoid prolonged idle sitting. There has been significant improvement in the swelling and edema in the patient's lower extremities. Past Medical History Past Medical History: Chronic Problems (Last Updated 05/30/17 @ 13:20 by Shawna Thomason) Presence of stent in coronary artery (Chronic 09/21/11) PTCA/SAMANTHA to prox RCA 09/21/11 GERD (gastroesophageal reflux disease) (Chronic) Swelling of lower extremity (Chronic) Edema of both legs (Chronic) History of kidney stones (Chronic) Overweight (Chronic) Pre-op evaluation (Chronic) Atherosclerosis of [place] coronary artery of [place] heart without angina pectoris (Chronic) Atherosclerosis of [place] coronary artery of [place] heart without angina pectoris (Chronic) PTCA/SAMANTHA to prox RCA 09/21/11 Surgical History: - - Patient has previously undergone coronary artery stenting of the right coronary artery. He is also undergone appendectomy, cholecystectomy, and bilateral total knee replacement in the past. Allergies/Adverse Reactions: Allergies Antihistamines - Ethylenediamine Adverse Reaction (Verified 04/29/17 17:50) Other HYPERACTIVITY Home Medications: Ambulatory Orders Medication Instructions Recorded Atorvastatin Calcium [Lipitor] 40 mg PO QHS 12/18/12 Enalapril Maleate [Vasotec] 5 mg PO BID 12/18/12 Omeprazole [Prilosec] 20 mg PO DAILY 12/18/12 Smoking Status: Never smoker Tobacco Use: Non-smoker Review of Systems Constitutional: Denies: Chills, Fever, Weight Change Eyes: Denies: Pain, Vision Change HEENT: Denies: Difficulty Hearing, Difficulty Swallowing, Sinus Congestion Cardiovascular: Denies: Chest Pain, Palpitations Respiratory: Denies: Cough, Shortness of Breath Gastrointestinal: Denies: Diarrhea, Nausea, Vomiting Genitourinary: Denies: Dysuria, Hematuria Endocrine: Denies: Heat/ Cold Intolerance, Polydipsia, Polyuria Hematologic/ Lymphatic: Denies: Easy Bruising, Easy Bleeding - Physical Exam Vital Signs Temp Pulse Resp BP 98.2 F 93 18 155/82 H 05/30/17 12:59 05/30/17 12:59 05/30/17 12:59 05/30/17 12:59 General: Alert, Oriented x3, Cooperative, No apparent distress, Well developed, Well nourished HEENT: Atraumatic, PERRLA, EOMI, Normocephalic Oral: Moist Mucosa Neck: No JVD Lungs: Normal air movement Abdomen: Non-Distended Extremities: No clubbing, No cyanosis, No Calf Tenderness, - - Minimal swelling and edema is noted in the lower extremities bilaterally. There are no open wounds or ulcerations. Circumference measurements are documented elsewhere. Patient appears to have reached a baseline in terms of the lower extremity swelling. Skin: No rashes, No breakdown Wound Measurements and Assessment WC - Nurse 1 - General Ulcer Measurement Start: 05/30/17 12:59 Freq: Status: Active Protocol: Activity Type Activity Date Activity User E-Sign Co-Sign Detail Recorded Client Recorded Date Recorded By Document 05/30/17 12:59 [facility] [id number] 05/30/17 13:06 [facility] Wound Center Nurse 1 [Edema Assessment] -Lower Limb Edema Present Yes -Right Calf (cm) 38 -Right Ankle (cm) 23.5 -Left Calf (cm) 38 -Left Ankle (cm) 25.5 WC - Nurse 2 - General Ulcer CM Notes Start: 05/30/17 12:59 Freq: Status: Active Protocol: Activity Type Activity Date Activity User E-Sign Co-Sign Detail Recorded Client Recorded Date Recorded By Document 05/30/17 13:28 [id number] 05/30/17 13:30 Wound Center Nurse 2 [Procedure/Treatment] #1- BLE EDEMA -Time 13:29 -Correct Patient Yes -Correct Side, Site, Position Yes -Correct Procedure Yes Musculoskeletal: No Muscle Wasting Neurological: Cranial nerves II-XII grossly intact, Neuro grossly intact Psych/Mental Status: Normal Affect, Appropriate, Alert and oriented to time, place, person, mood and affect Debridement Note Post-Debridement Measurements/Treatment WC - Nurse 2 - General Ulcer CM Notes Start: 05/30/17 12:59 Freq: Status: Active Protocol: Activity Type Activity Date Activity User E-Sign Co-Sign Detail Recorded Client Recorded Date Recorded By Document 05/30/17 13:28 [id number] 05/30/17 13:30 Wound Center Nurse 2 #1- BLE EDEMA -Time 13:29 -Correct Patient Yes No debridement was completed today Assessment/Plan Active Problems (Last Updated 05/30/17 @ 13:20 by Shawna Thomason) Swelling of lower extremity (Chronic) Edema of both legs (Chronic) Assessment: This is a 71-year-old male who is relatively inactive. His activity has been adversely affected by aging, and symptoms related to recent lumbar disc disease. He has recently undergone lumbar laminectomy. His activity has been curtailed recently, concomitant to increased swelling and edema in his lower extremities. He sleeps in a somewhat upright position, with head of bed elevated, due to gastroesophageal reflux disease. He denies a history of thrombophlebitis. It appears as though the patient's lifestyle and habits account for his swelling and edema in the lower extremities. There has been significant improvement with the implementation of conservative treatment measures thus far. 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 An accessory saphenous vein is also incompetent in each lower extremity. Plan: The patient has been counseled in the appropriate lifestyle measures to be implemented relative to the lower extremity swelling and edema. He has been advised to elevate his lower extremities as much as possible, even during daytime hours. Elevation is to be accomplished to heart level, or higher. He is to avoid idle standing and sitting. Activity has been encouraged, such as walking, biking, swimming, jogging, etc. The benefits of activity have been thoroughly explained, including the recruitment of calf and foot muscle pumps. As the patient continues to recover from his recent lumbar disc surgery, and his activity level increases, there has been significant improvement in the swelling and edema in his lower extremities. He is now wearing graduated compression stockings of 20-30 mmHg compression, knee-high length, on a daily basis. He has responded quite nicely to the recommended conservative treatment measures, and is to be discharged at this time. Control of patient's weight has also been recommended. Patient stands 5 feet 9 inches tall. He weighs 210 pounds. His BMI is 31, which places him in the overweight category. Weight loss has been recommended, and the patient has been advised to collaborate with his primary care physician in this regard. The patient is not a smoker. Influenza vaccine was not administered today. Patient has started physical therapy, which will increase his level of activity following his recent back surgery, which will help to recruit the lower extremity muscle pumps, and assist in venous return. 05/30/17 1345 <Electronically signed by Matthew Martinez MD> Date Matthew Martinez MD CC: Signed WOUND CTR HISTORY Observed: 05/16/2017 Status: F Source: [facility] 2:34 PM [facility] [place] [facility] [address] [place] [address] Wound Ctr History AND Physical 05/16/17 1427 MR#: [id number] Acct: [id number] Name: EMREIMAN Nas Rep #: [id number] : 1945 71 From: Matthew Martinez MD PCP: Simon Willams Status: REG RCR Y Location: (1) GERD (gastroesophageal reflux disease) Status: Chronic Current Visit: No Code(s): K21.9 - Gastro- esophageal reflux disease without esophagitis (2) Swelling of lower extremity Status: Chronic Current Visit: Yes Code(s): M79.89 - Other specified soft tissue disorders (3) Edema of both legs Status: Chronic Current Visit: Yes Code(s): R60.0 - Localized edema (4) History of kidney stones Status: Chronic Current Visit: No Code(s): Z87.442 - Personal history of urinary calculi (5) Atherosclerosis of [place] coronary artery of [place] heart without angina pectoris Status: Chronic Current Visit: No Code(s): I25.10 - Atherosclerotic heart disease of [place] coronary artery without angina pectoris (6) Benign essential hypertension Status: Chronic Current Visit: No Code(s): I10 - Essential (primary) hypertension (7) History of benign prostatic hypertrophy Status: Chronic Current Visit: No Code(s): Z87.438 - Personal history of other diseases of male genital organs (8) History of hyperlipidemia Status: Chronic Current Visit: No Code(s): Z86.39 - Personal history of other endocrine, nutritional and metabolic disease (9) Rheumatoid arthritis Status: Chronic Current Visit: No Code(s): M06.9 - Rheumatoid arthritis, unspecified (10) Overweight Status: Chronic Current Visit: No Code(s): E66.3 - Overweight (11) Pre-op evaluation Status: Chronic Current Visit: No Code(s): Z01.818 - Encounter for other preprocedural examination History of Present Illness Date of Service: 05/16/17 Chief Complaint: Chronic swelling and edema in the lower extremities bilaterally History of Wound: This is a 71-year-old male with a long-standing history of swelling and edema in his lower extremities bilaterally. This has been ongoing for many years. It has become more severe recently. The patient has a recent history of lumbar disc disease, and underwent lumbar laminectomy at the [facility] on April 19, 2017. According to the patient, his lower extremity swelling is worse late in the day. He sleeps on a flat mattress at night, though often with the head of bed elevated due to gastroesophageal reflux disease. He sits for long periods of time idlely during daytime hours. He admits to being relatively inactive. He denies a history of thrombophlebitis in the past. He has undergone no prior vein procedures in the past. His primary care physician recently placed him on Lasix for diuresis purposes, which has failed to have any favorable impact in his lower extremity swelling. Patient was evaluated in the emergency department at [facility] on April 29, 2017, due to his lower extremity swelling. At that time, a venous duplex examination was negative for deep vein thrombosis bilaterally. Laboratory results were as follows: White blood count 7.4, hemoglobin 10.5, medical 32.6, it was 321,000, sodium 140, potassium 3.9, chloride 107, BUN 14, creatinine 1.04, glucose 100, calcium 8.0, AST 29, ALT 33, alkaline phosphatase 97, total protein 6.6, albumin 2.9. Since patient's initial visit, there has been significant improvement. We have implemented the use of compression to the lower extremities by means of 3M 2 layer compression wrap, changed twice weekly. Patient has also been modifying his daily routine, elevating his legs even during daytime hours. He has also been advised to avoid prolonged idle sitting. Result, there has been significant improvement in the swelling and edema in the patient's lower extremities, as noted today. Past Medical History Past Medical History: Chronic Problems (Last Updated 03/17/17 @ 09:45 by Willie Ramirez NP-C) GERD (gastroesophageal reflux disease) (Chronic) Swelling of lower extremity (Chronic) Edema of both legs (Chronic) History of kidney stones (Chronic) Overweight (Chronic) Pre-op evaluation (Chronic) Atherosclerosis of [place] coronary artery of [place] heart without angina pectoris (Chronic) Benign essential hypertension (Chronic) History of benign prostatic hypertrophy (Chronic) History of hyperlipidemia (Chronic) Rheumatoid arthritis (Chronic) Surgical History: - - Patient has previously undergone coronary artery stenting of the right coronary artery. He is also undergone appendectomy, cholecystectomy, and bilateral total knee replacement in the past. Allergies/Adverse Reactions: Allergies Antihistamines - Ethylenediamine Adverse Reaction (Verified 04/29/17 17:50) Other HYPERACTIVITY Home Medications: Ambulatory Orders Medication Instructions Recorded Atorvastatin Calcium [Lipitor] 40 mg PO QHS 12/18/12 Enalapril Maleate [Vasotec] 5 mg PO BID 12/18/12 Omeprazole [Prilosec] 20 mg PO DAILY 12/18/12 - Family History Maternal Family History: Family History (Last Updated 03/17/17 @ 09:38 by MARYCHUY Faria) Father CAD (coronary artery disease) Mother CAD (coronary artery disease) Breast cancer Colon cancer Diabetes Brother CAD (coronary artery disease) CVA (cerebral vascular accident) Diabetes Lives: Spouse/ Significant Other Smoking Status: Never smoker Tobacco Use: Non-smoker Alcohol: None Drugs: None Review of Systems Constitutional: Denies: Chills, Fever, Weight Change Eyes: Denies: Pain, Vision Change HEENT: Denies: Difficulty Hearing, Difficulty Swallowing, Sinus Congestion Cardiovascular: Denies: Chest Pain, Palpitations Respiratory: Denies: Cough, Shortness of Breath Gastrointestinal: Denies: Diarrhea, Nausea, Vomiting Genitourinary: Denies: Dysuria, Hematuria Endocrine: Denies: Heat/ Cold Intolerance, Polydipsia, Polyuria Hematologic/ Lymphatic: Denies: Easy Bruising, Easy Bleeding - Physical Exam Vital Signs Temp Pulse Resp BP 98.7 F 80 16 151/80 H 05/16/17 12:59 05/12/17 12:54 05/16/17 12:59 05/12/17 12:54 General: Alert, Oriented x3, Cooperative, No apparent distress, Well developed, Well nourished HEENT: Atraumatic, PERRLA, EOMI, Normocephalic Oral: Moist Mucosa Neck: No JVD Lungs: Normal air movement Abdomen: Non-Distended Extremities: No clubbing, No cyanosis, No Calf Tenderness, - - The swelling and edema in the patient's lower extremities has been minimized. Dimensions are documented elsewhere. There is marketed improvement. There are no significant skin changes. There are no wounds or ulcerations. Skin: No rashes, No breakdown Wound Measurements and Assessment WC - Nurse 1 - General Ulcer Measurement Start: 05/02/17 12:34 Freq: Status: Active Protocol: Activity Type Activity Date Activity User E-Sign Co-Sign Detail Recorded Client Recorded Date Recorded By Document 05/16/17 12:59 [facility] [id number] 05/16/17 13:12 [facility] Wound Center Nurse 1 [Edema Assessment] -Lower Limb Edema Present Yes -Right Calf (cm) 38.5 -Right Ankle (cm) 22.4 -Left Calf (cm) 37 -Left Ankle (cm) 24.8 WC - Nurse 2 - General Ulcer CM Notes Start: 05/02/17 12:34 Freq: Status: Active Protocol: Activity Type Activity Date Activity User E-Sign Co-Sign Detail Recorded Client Recorded Date Recorded By Document 05/16/17 14:22 [id number] [id number] 05/16/17 14:23 [facility] Wound Center Nurse 2 [Procedure/Treatment] #1- BLE EDEMA Neurological: Cranial nerves II-XII grossly intact, Neuro grossly intact Psych/Mental Status: Normal Affect, Appropriate, Alert and oriented to time, place, person, mood and affect Debridement Note Post-Debridement Measurements/Treatment WC - Nurse 2 - General Ulcer CM Notes Start: 05/02/17 12:34 Freq: Status: Active Protocol: Activity Type Activity Date Activity User E-Sign Co-Sign Detail Recorded Client Recorded Date Recorded By No debridement was completed today Assessment/Plan Active Problems (Last Updated 03/17/17 @ 09:45 by Willie Ramirez, [employer]DER-C) Swelling of lower extremity (Chronic) Edema of both legs (Chronic) Assessment: This is a 71-year-old male who is relatively inactive. His activity has been adversely affected by aging, and symptoms related to lumbar disc disease. He has recently undergone lumbar laminectomy. His activity has been curtailed recently, concomitant to increased swelling and edema in his lower extremities. He sleeps in a somewhat upright position, with head of bed elevated, due to gastroesophageal reflux disease. He denies a history of thrombophlebitis. It appears as though the patient's lifestyle and habits account for his swelling and edema in the lower extremities. There has been significant improvement with the implementation of conservative treatment measures thus far. 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 An accessory saphenous vein is also incompetent in each lower extremity. Plan: The patient has been counseled in the appropriate lifestyle measures to be implemented relative to the lower extremity swelling and edema. He has been advised to elevate his lower extremities as much as possible, even during daytime hours. Elevation is to be accomplished to heart level, or higher. He is to avoid idle standing and sitting. Activity has been encouraged, such as walking, biking, swimming, jogging, etc. The benefits of activity have been thoroughly explained, including the recruitment of calf and foot muscle pumps. We are to continue 3M 2 layer compression wraps, but have prescribed graduated compression stockings of 20-30 mmHg compression, knee-high length. The patient is to obtain the stockings within the next several days. He will follow-up on an outpatient basis in approximately 2 weeks for reassessment. If he continues to do well, it is likely that he will be discharged and followed-up thereafter on an as needed basis. Control of patient's weight has also been recommended. Patient stands 5 feet 9 inches tall. He weighs 210 pounds. His BMI is 31, which places him in the overweight category. Weight loss has been recommended, and the patient has been advised to collaborate with his primary care physician in this regard. The patient is not a smoker. Influenza vaccine was not administered today. Patient has started physical therapy, which will increase his level of activity following his recent back surgery, which will help to recruit the lower extremity muscle pumps, and assist in venous return. 05/16/17 1434 <Electronically signed by Matthew Martinez MD> Date Matthew Martinez MD CC: Signed WOUND CTR HISTORY Observed: 05/09/2017 Status: F Source: [facility] 1:18 PM [facility] [place] [facility] Wound Healing Center [address] [place] [address] Wound Ctr History AND Physical 05/09/17 1310 MR#: [id number] Acct: [id number] Name: IMAN ANDREA Rep #: [id number] : 1945 71 From: Matthew Martinez MD PCP: Simon Willams Status: REG RCR Y Location: WC (1) GERD (gastroesophageal reflux disease) Status: Chronic Current Visit: No Code(s): K21.9 - Gastro- esophageal reflux disease without esophagitis (2) Swelling of lower extremity Status: Chronic Current Visit: Yes Code(s): M79.89 - Other specified soft tissue disorders (3) Edema of both legs Status: Chronic Current Visit: Yes Code(s): R60.0 - Localized edema (4) History of kidney stones Status: Chronic Current Visit: No Code(s): Z87.442 - Personal history of urinary calculi (5) Atherosclerosis of [place] coronary artery of [place] heart without angina pectoris Status: Chronic Current Visit: No Code(s): I25.10 - Atherosclerotic heart disease of [place] coronary artery without angina pectoris (6) Benign essential hypertension Status: Chronic Current Visit: No Code(s): I10 - Essential (primary) hypertension (7) History of benign prostatic hypertrophy Status: Chronic Current Visit: No Code(s): Z87.438 - Personal history of other diseases of male genital organs (8) History of hyperlipidemia Status: Chronic Current Visit: No Code(s): Z86.39 - Personal history of other endocrine, nutritional and metabolic disease (9) Rheumatoid arthritis Status: Chronic Current Visit: No Code(s): M06.9 - Rheumatoid arthritis, unspecified (10) Overweight Status: Chronic Current Visit: No Code(s): E66.3 - Overweight (11) Pre-op evaluation Status: Chronic Current Visit: No Code(s): Z01.818 - Encounter for other preprocedural examination History of Present Illness Date of Service: 05/09/17 Chief Complaint: Chronic swelling and edema in the lower extremities bilaterally History of Wound: This is a 71-year-old male with a long-standing history of swelling and edema in his lower extremities bilaterally. This has been ongoing for many years. Become more severe recently. The patient has a recent history of lumbar disc disease, and underwent lumbar laminectomy at the [facility] on April 19, 2017. According to the patient, his lower extremity swelling worse late in the day. He sleeps on a flat mattress at night, though often with the head of bed elevated due to gastroesophageal reflux disease. He sits for long periods of time ideally during daytime hours. He admits to being totally inactive. He denies a history of thrombophlebitis in the past. He is undergone no prior vein procedures in the past. His primary care physician recently placed him on Lasix for diuresis purposes, which has failed to have any favorable impact in his lower extremity swelling. Patient was evaluated in the emergency department at [facility] on April 29, 2017, due to his lower extremity swelling. At that time, a venous duplex examination was negative for deep vein thrombosis bilaterally. Laboratory results were as follows: White blood count 7.4, hemoglobin 10.5, medical 32.6, it was 321,000, sodium 140, potassium 3.9, chloride 107, BUN 14, creatinine 1.04, glucose 100, calcium 8.0, AST 29, ALT 33, alkaline phosphatase 97, total protein 6.6, albumin 2.9. Since patient's initial visit, there has been significant improvement. We have implemented the use of compression to the lower extremities by means of 3M 2 layer compression wrap, change twice weekly. Patient has also been modifying his daily routine, elevating his legs even during daytime hours. He has also been advised to avoid prolonged vital sitting. Past Medical History Past Medical History: Chronic Problems (Last Updated 03/17/17 @ 09:45 by MARYCHUY Faria) GERD (gastroesophageal reflux disease) (Chronic) Swelling of lower extremity (Chronic) Edema of both legs (Chronic) History of kidney stones (Chronic) Overweight (Chronic) Pre-op evaluation (Chronic) Atherosclerosis of [place] coronary artery of [place] heart without angina pectoris (Chronic) Benign essential hypertension (Chronic) History of benign prostatic hypertrophy (Chronic) History of hyperlipidemia (Chronic) Rheumatoid arthritis (Chronic) Surgical History: - - Patient has previously undergone coronary artery stenting of the right coronary artery. He is also undergone appendectomy, cholecystectomy, and bilateral total knee replacement in the past. Allergies/Adverse Reactions: Allergies Antihistamines - Ethylenediamine Adverse Reaction (Verified 04/29/17 17:50) Other HYPERACTIVITY Home Medications: Ambulatory Orders Medication Instructions Recorded Atorvastatin Calcium [Lipitor] 40 mg PO QHS 12/18/12 Enalapril Maleate [Vasotec] 5 mg PO BID 12/18/12 Omeprazole [Prilosec] 20 mg PO DAILY 12/18/12 - Family History Maternal Family History: Family History (Last Updated 03/17/17 @ 09:38 by MARYCHUY Faria) Father CAD (coronary artery disease) Mother CAD (coronary artery disease) Breast cancer Colon cancer Diabetes Brother CAD (coronary artery disease) CVA (cerebral vascular accident) Diabetes Lives: Spouse/ Significant Other Smoking Status: Never smoker Tobacco Use: Non-smoker Alcohol: None Drugs: None Review of Systems Constitutional: Denies: Chills, Fever, Weight Change Eyes: Denies: Pain, Vision Change HEENT: Denies: Difficulty Hearing, Difficulty Swallowing, Sinus Congestion Cardiovascular: Denies: Chest Pain, Palpitations Respiratory: Denies: Cough, Shortness of Breath Gastrointestinal: Denies: Diarrhea, Nausea, Vomiting Genitourinary: Denies: Dysuria, Hematuria Endocrine: Denies: Heat/ Cold Intolerance, Polydipsia, Polyuria Hematologic/ Lymphatic: Denies: Easy Bruising, Easy Bleeding - Physical Exam Vital Signs Temp Pulse Resp BP 97.7 F L 90 16 144/79 H 05/09/17 12:24 05/09/17 12:24 05/09/17 12:24 05/09/17 12:24 General: Alert, Oriented x3, Cooperative, No apparent distress, Well developed, Well nourished HEENT: Atraumatic, PERRLA, EOMI, Normocephalic Oral: Moist Mucosa Neck: No JVD Lungs: Normal air movement Abdomen: Non-Distended Extremities: No clubbing, No cyanosis, No Calf Tenderness, - - The swelling and edema in the patient's lower extremities is much improved. Circumference measurements are documented elsewhere, and are less than previously noted. There are no significant skin changes in the lower extremities. There are no open wounds or ulcerations. There is no sign of infection or cellulitis. Skin: No rashes, No breakdown Wound Measurements and Assessment WC - Nurse 1 - General Ulcer Measurement Start: 05/02/17 12:34 Freq: Status: Active Protocol: Activity Type Activity Date Activity User E-Sign Co-Sign Detail Recorded Client Recorded Date Recorded By Document 05/09/17 12:24 [facility] [id number] 05/09/17 12:38 [facility] - Nurse 2 - General Ulcer CM Notes Start: 05/02/17 12:34 Freq: Status: Active Protocol: Activity Type Activity Date Activity User E-Sign Co-Sign Detail Recorded Client Recorded Date Recorded By Document 05/09/17 12:48 [id number] 05/09/17 12:48 Wound Center Nurse 2 [Procedure/Treatment] #1- BLE EDEMA -Time 12:48 -Correct Patient Yes Neurological: Cranial nerves II-XII grossly intact, Neuro grossly intact Psych/Mental Status: Normal Affect, Appropriate, Alert and oriented to time, place, person, mood and affect Debridement Note Post-Debridement Measurements/Treatment WC - Nurse 2 - General Ulcer CM Notes Start: 02/12/18 12:34 Freq: Status: Active Protocol: Activity Type Activity Date Activity User E-Sign Co-Sign Detail Wound Center Nurse 2 #1- BLE EDEMA No debridement was completed today Assessment/Plan Active Problems (Last Updated 03/17/17 @ 09:45 by Willie Ramirez, EXHIBIT BUILDER-C) Swelling of lower extremity (Chronic) Edema of both legs (Chronic) Assessment: This is a 71-year-old male who is relatively inactive. His activity has been adversely affected by aging, and symptoms related to lumbar disc disease. He has recently undergone lumbar laminectomy. His activity has been curtailed recently, concomitant to increased swelling and edema in his lower extremities. He sleeps in a somewhat upright position, with head of bed elevated, due to gastroesophageal reflux disease. He denies a history of thrombophlebitis. It appears as though the patient's lifestyle and habits account for his swelling and edema in the lower extremities. There has been significant improvement with the implementation of conservative treatment measures thus far. 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 An accessory saphenous vein is also incompetent in each lower extremity. Plan: The patient and his son, who is at the bedside, have been counseled in the appropriate lifestyle measures to be implemented relative to the lower extremity swelling and edema. He has been advised to elevate his lower extremities as much as possible, even during daytime hours. Elevation is to be accomplished to heart level, or higher. He is to avoid idle standing and sitting. Activity has been encouraged, such as walking, biking, swimming, jogging, etc. The benefits of activity have been thoroughly explained, including the recruitment of calf and foot muscle pumps. We are to continue 3M 2 layer compression wraps, and will ultimately transition to the use of graduated compression stockings of at least 20-30 mmHg compression. Control of patient's weight has also been recommended. Patient will return weekly and his progress will be documented serially. It is anticipated of conservative treatment measures will suffice to achieve control of his lower extremity swelling and edema. Patient stands 5 feet 9 inches tall. He weighs 210 pounds. His BMI is 31, which places him in the overweight category. Weight loss has been recommended, and the patient has been advised to collaborate with his primary care physician in this regard. The patient is not a smoker. Influenza vaccine was not administered today. The left ankle pressure was unobtainable due to the noncompressibility of the vasculature. The right ankle- brachial index was 1.05. Because of the patient's recent lumbar surgery, and limitations in flexibility, we will continue using 3M 2 layer compression wraps which will be changed twice weekly. Patient is to start physical therapy soon, which will increase his level of activity following his recent back surgery, which will help to recruit the lower extremity muscle pumps, and assist in venous return. 05/09/17 1318 <Electronically signed by Matthew Martinez MD> Date Matthew Martinez MD CC: Signed VENOUS DUPLEX LOWER Observed: 05/05/2017 Status: F Source: [place] [facility] 6:21 PM [facility] [place] [facility] Cardiovascular Services [address] [place] [address] Venous Duplex - [facility] 05/05/17 1305 MR#: [id number] Acct: [id number] Name: IMAN ANDREA Rep #: [id number] : 1945 71 From: Matthew Martinez MD Attending Dr: Matthew Martinez MD Status: REG RCR Ordering Dr: Matthew Martinez MD Date: 05/05/17 Location: Sex: M C Admitted: Reason For Study: swelling, edema RIGHT LEFT CFV is compressible, spontaneous, phasic, CFV is compressible, spontaneous, phasic, competent and demonstrates normal competent, and demonstrates normal augmentation. augmentation. FV is compressible, spontaneous, phasic, FV is compressible, spontaneous, phasic, competent and demonstrates normal competent and demonstrates normal augmentation. augmentation. POP V is compressible, spontaneous, phasic, POP V is compressible, spontaneous, phasic, competent and demonstrates normal competent and demonstrates normal augmentation. augmentation. T/P Trunk is compressible. T/P Trunk is compressible. PTV is compressible. PTV is compressible. RT PerV is compressible. LT PerV is compressible. S-F Junction is incompetent for greater S-F Junction is incompetent for greater than .5 seconds. than .5 seconds. GSV is incompetent throughout for greater GSV is incompetent throughout for greater than .5 seconds. GSV measures .370 x .407 than .5 seconds. GSV measures .289 x .318 cm. cm. ASV at the knee is incompetent for greater ASV at the knee is incompetent for greater than .5 seconds. ASV measures .308 x .316 than .5 seconds. ASV measures .229 x .224 cm. cm. SSV is competent. SSV is competent. Procedure Exam performed in department. The exam was diagnostic. Interpretation Summary Deep veins of the lower extremities are bilaterally patent and compressible segmentally. There is no evidence of deep vein thrombosis on either side. Valvular competence appears intact within the proximal deep venous systems bilaterally. The greater saphenous veins appear bilaterally patent and compressible segmentally. Sapheno-femoral junctions are bilaterally incompetent . Segmental valvular incompetence is noted within the greater saphenous veins bilaterally. Small saphenous veins are patent and competent bilaterally. An incompetent accessory saphenous vein is identified at knee level in the lower extremities bilaterally. Ordering Physician: Matthew Martinez Performed By: Tim Pike RVT 05/05/171820 Date Matthew Martinez MD CC: Matthew Martinez MD; Simon Willams Date Dictated: 05/05/17 1305 Date Transcribed: 05/05/171820 Binder Cutter Hand: Signed WOUND CTR HISTORY Observed: 05/02/2017 Status: F Source: [facility] 2:24 PM [facility] [place] Wound Healing Center [address] [place] [id number] Wound Ctr History AND Physical 05/02/17 1423 MR#: [id number] Acct: [id number] Name: IMAN ANDREA Rep #: [id number] : 1945 71 From: Matthew Martinez MD PCP: Simon Willams Status: REG RCR Y Location: (1) GERD (gastroesophageal reflux disease) Status: Chronic Current Visit: No Code(s): K21.9 - Gastro- esophageal reflux disease without esophagitis (2) Swelling of lower extremity Status: Chronic Current Visit: Yes Code(s): M79.89 - Other specified soft tissue disorders (3) Edema of both legs Status: Chronic Current Visit: Yes Code(s): R60.0 - Localized edema (4) History of kidney stones Status: Chronic Current Visit: No Code(s): Z87.442 - Personal history of urinary calculi (5) Atherosclerosis of [place] coronary artery of [place] heart without angina pectoris Status: Chronic Current Visit: No Code(s): I25.10 - Atherosclerotic heart disease of [place] coronary artery without angina pectoris (6) Benign essential hypertension Status: Chronic Current Visit: No Code(s): I10 - Essential (primary) hypertension (7) History of benign prostatic hypertrophy Status: Chronic Current Visit: No Code(s): Z87.438 - Personal history of other diseases of male genital organs (8) History of hyperlipidemia Status: Chronic Current Visit: No Code(s): Z86.39 - Personal history of other endocrine, nutritional and metabolic disease (9) Rheumatoid arthritis Status: Chronic Current Visit: No Code(s): M06.9 - Rheumatoid arthritis, unspecified (10) Overweight Status: Chronic Current Visit: No Code(s): E66.3 - Overweight (11) Pre-op evaluation Status: Chronic Current Visit: No Code(s): Z01.818 - Encounter for other preprocedural examination History of Present Illness Date of Service: 05/02/17 Chief Complaint: Chronic swelling and edema in the lower extremities bilaterally History of Wound: This is a 71-year-old male with a long-standing history of swelling and edema in his lower extremities bilaterally. This has been ongoing for many years. Become more severe recently. The patient has a recent history of lumbar disc disease, and underwent lumbar laminectomy at the [facility] on April 19, 2017. According to the patient, his lower extremity swelling worse late in the day. He sleeps on a flat mattress at night, though often with the head of bed elevated due to gastroesophageal reflux disease. He sits for long periods of time ideally during daytime hours. He admits to being totally inactive. He denies a history of thrombophlebitis in the past. He is undergone no prior vein procedures in the past. His primary care physician recently placed him on Lasix for diuresis purposes, which has failed to have any favorable impact in his lower extremity swelling. Patient was evaluated in the emergency department at [facility] on April 29, 2017, due to his lower extremity swelling. At that time, a venous duplex examination was negative for deep vein thrombosis bilaterally. Laboratory results were as follows: White blood count 7.4, hemoglobin 10.5, medical 32.6, it was 321,000, sodium 140, potassium 3.9, chloride 107, BUN 14, creatinine 1.04, glucose 100, calcium 8.0, AST 29, ALT 33, alkaline phosphatase 97, total protein 6.6, albumin 2.9. Past Medical History Past Medical History: Chronic Problems (Last Updated 03/17/17 @ 09:45 by OPAL FariaC) GERD (gastroesophageal reflux disease) (Chronic) Swelling of lower extremity (Chronic) Edema of both legs (Chronic) History of kidney stones (Chronic) Overweight (Chronic) Pre-op evaluation (Chronic) Atherosclerosis of [place] coronary artery of [place] heart without angina pectoris (Chronic) Benign essential hypertension (Chronic) History of benign prostatic hypertrophy (Chronic) History of hyperlipidemia (Chronic) Rheumatoid arthritis (Chronic) Surgical History: - - Patient has previously undergone coronary artery stenting of the right coronary artery. He is also undergone appendectomy, cholecystectomy, and bilateral total knee replacement in the past. Allergies/Adverse Reactions: Allergies Antihistamines - Ethylenediamine Adverse Reaction (Verified 04/29/17 17:50) Other HYPERACTIVITY Home Medications: Ambulatory Orders Medication Instructions Recorded Atorvastatin Calcium [Lipitor] 40 mg PO QHS 12/18/12 Enalapril Maleate [Vasotec] 5 mg PO BID 12/18/12 Omeprazole [Prilosec] 20 mg PO DAILY 12/18/12 - Family History Maternal Family History: Family History (Last Updated 03/17/17 @ 09:38 by OPAL FariaC) Father CAD (coronary artery disease) Mother CAD (coronary artery disease) Breast cancer Colon cancer Diabetes Brother CAD (coronary artery disease) CVA (cerebral vascular accident) Diabetes Lives: Spouse/ Significant Other Smoking Status: Never smoker Tobacco Use: Non-smoker Alcohol: None Drugs: None - Physical Exam Vital Signs Temp Pulse Resp BP 98.2 F 91 16 140/95 H 05/02/17 13:14 05/02/17 13:14 05/02/17 13:14 05/02/17 13:14 Wound Measurements and Assessment WC - Nurse 1 - General Ulcer Measurement Start: 05/02/17 12:34 Freq: Status: Active Protocol: Activity Type Activity Date Activity User E-Sign Co-Sign Detail Recorded Client Recorded Date Recorded By Document 05/02/17 13:14 [facility] [id number] 05/02/17 13:32 [facility] Wound Center Nurse 1 [Ulcer Assessment Protocol: WC.WD.LOC] #1- BLE EDEMA WC - Nurse 2 - General Ulcer CM Notes Start: 05/02/17 12:34 Freq: Status: Active Protocol: Activity Type Activity Date Activity User E-Sign Co-Sign Detail Recorded Client Recorded Date Recorded By Document 05/02/17 13:49 DV [id number] 05/02/17 13:53 [facility] Wound Center Nurse 2 Debridement Note Post-Debridement Measurements/Treatment WC - Nurse 2 - General Ulcer CM Notes Start: 05/02/17 12:34 Freq: Status: Active Protocol: Activity Type Activity Date Activity User E-Sign Co-Sign Detail Recorded Client Recorded Date Recorded By Document 05/02/17 13:49 DV [id number] 05/02/17 13:53 DV Wound Center Nurse 2 #1- BLE EDEMA -Time 13:50 -Correct Patient Yes -Correct Side, Site, Position Yes -Procedure Performed No Assessment/Plan Active Problems (Last Updated 03/17/17 @ 09:45 by MARYCHUY Faria) Swelling of lower extremity (Chronic) Edema of both legs (Chronic) Assessment: This is a 71-year-old male who is relatively inactive. His activity has been adversely affected by aging, and symptoms related to lumbar disc disease. He has recently undergone lumbar laminectomy. His activity has been curtailed recently, concomitant to increased swelling and edema in his lower extremities. He sleeps in a somewhat upright position, with head of bed elevated, due to gastroesophageal reflux disease. He denies a history of thrombophlebitis. It appears as though the patient's lifestyle and habits account for his swelling and edema in the lower extremities. Plan: The patient and his son, who is at the bedside, have been counseled in the appropriate lifestyle measures to be implemented relative to the lower extremity swelling and edema. He has been advised to elevate his lower extremities as much as possible, even during daytime hours. Elevation is to be accomplished to heart level, or higher. He is to avoid idle standing and sitting. Activity has been encouraged, such as walking, biking, swimming, jogging, etc. The benefits of activity have been thoroughly explained, including the recruitment of calf and foot muscle pumps. We are to obtain an ankle-brachial index bilaterally, to determine the degree of compression which would be appropriate to implement in the lower extremities on a daily basis. It is anticipated that we will start with compression wraps, such as SurePress or 3M 2 layer compression wraps, and will ultimately transition to the use of graduated compression stockings of at least 20-30 mmHg compression. Control of patient's weight has also been recommended. Patient will return weekly and his progress will be documented serially. Patient stands 5 feet 9 inches tall. He weighs 210 pounds. His BMI is 31, which places him in the overweight category. Weight loss has been recommended, and the patient has been advised to collaborate with his primary care physician in this regard. The patient is not a smoker. Influenza vaccine was not administered today. The left ankle pressure was unobtainable due to the noncompressibility of the vasculature. The right ankle-brachial index was 1.05. Because of the patient's recent lumbar surgery, and limitations in flexibility, we will start using 3M 2 layer compression wraps which will be changed twice weekly. Will obtain a venous duplex examination to assess patency and competence in the deep and superficial venous systems bilaterally. 05/02/17 1424 <Electronically signed by Matthew Martinez MD> Date Matthew Martinez MD CC: Signed WOUND CTR HISTORY Observed: 05/02/2017 Status: F Source: [facility] 2:20 PM [facility] [place] [facility] Wound Healing Center [address] [place] [address] Wound Ctr History AND Physical 05/02/17 1403 MR#: [id number] Acct: [id number] Name: IMAN ANDREA Rep #: [id number] : 1945 71 From: Matthew Martinez MD PCP: Simon Willams Status: REG RCR Y Location: WC (1) GERD (gastroesophageal reflux disease) Status: Chronic Current Visit: No Code(s): K21.9 - Gastro- esophageal reflux disease without esophagitis (2) Swelling of lower extremity Status: Chronic Current Visit: Yes Code(s): M79.89 - Other specified soft tissue disorders (3) Edema of both legs Status: Chronic Current Visit: Yes Code(s): R60.0 - Localized edema (4) History of kidney stones Status: Chronic Current Visit: No Code(s): Z87.442 - Personal history of urinary calculi (5) Atherosclerosis of [place] coronary artery of [place] heart without angina pectoris Status: Chronic Current Visit: No Code(s): I25.10 - Atherosclerotic heart disease of [place] coronary artery without angina pectoris (6) Benign essential hypertension Status: Chronic Current Visit: No Code(s): I10 - Essential (primary) hypertension (7) History of benign prostatic hypertrophy Status: Chronic Current Visit: No Code(s): Z87.438 - Personal history of other diseases of male genital organs (8) History of hyperlipidemia Status: Chronic Current Visit: No Code(s): Z86.39 - Personal history of other endocrine, nutritional and metabolic disease (9) Rheumatoid arthritis Status: Chronic Current Visit: No Code(s): M06.9 - Rheumatoid arthritis, unspecified (10) Overweight Status: Chronic Current Visit: No Code(s): E66.3 - Overweight (11) Pre-op evaluation Status: Chronic Current Visit: No Code(s): Z01.818 - Encounter for other preprocedural examination History of Present Illness Date of Service: 05/02/17 Chief Complaint: Chronic swelling and edema in the lower extremities bilaterally History of Wound: This is a 71-year-old male with a long-standing history of swelling and edema in his lower extremities bilaterally. This has been ongoing for many years. Become more severe recently. The patient has a recent history of lumbar disc disease, and underwent lumbar laminectomy at the [facility] on April 19, 2017. According to the patient, his lower extremity swelling worse late in the day. He sleeps on a flat mattress at night, though often with the head of bed elevated due to gastroesophageal reflux disease. He sits for long periods of time ideally during daytime hours. He admits to being totally inactive. He denies a history of thrombophlebitis in the past. He is undergone no prior vein procedures in the past. His primary care physician recently placed him on Lasix for diuresis purposes, which has failed to have any favorable impact in his lower extremity swelling. Patient was evaluated in the emergency department at [facility] on April 29, 2017, due to his lower extremity swelling. At that time, a venous duplex examination was negative for deep vein thrombosis bilaterally. Laboratory results were as follows: White blood count 7.4, hemoglobin 10.5, medical 32.6, it was 321,000, sodium 140, potassium 3.9, chloride 107, BUN 14, creatinine 1.04, glucose 100, calcium 8.0, AST 29, ALT 33, alkaline phosphatase 97, total protein 6.6, albumin 2.9. Past Medical History Past Medical History: Chronic Problems (Last Updated 03/17/17 @ 09:45 by Wlilie Ramirez NP-C) GERD (gastroesophageal reflux disease) (Chronic) Swelling of lower extremity (Chronic) Edema of both legs (Chronic) History of kidney stones (Chronic) Overweight (Chronic) Pre-op evaluation (Chronic) Atherosclerosis of [place] coronary artery of [place] heart without angina pectoris (Chronic) Benign essential hypertension (Chronic) History of benign prostatic hypertrophy (Chronic) History of hyperlipidemia (Chronic) Rheumatoid arthritis (Chronic) Past Medical History: Patient has a history of gastroesophageal reflux disease. He also suffers from hypertension and hyperlipidemia. He has a history of coronary artery disease, having previously undergone coronary artery stenting of the right coronary artery. The patient's history is negative for myocardial infarction, congestive heart failure, cerebrovascular accident, diabetes mellitus, cancer, pulmonary disease, and thyroid disease. He has a history of kidney stones. Surgical History: - - Patient has previously undergone coronary artery stenting of the right coronary artery. He is also undergone appendectomy, cholecystectomy, and bilateral total knee replacement in the past. Allergies/Adverse Reactions: Allergies Antihistamines - Ethylenediamine Adverse Reaction (Verified 04/29/17 17:50) Other HYPERACTIVITY Home Medications: Ambulatory Orders Medication Instructions Recorded Atorvastatin Calcium [Lipitor] 40 mg PO QHS 12/18/12 Enalapril Maleate [Vasotec] 5 mg PO BID 12/18/12 Omeprazole [Prilosec] 20 mg PO DAILY 12/18/12 - Family History Maternal Family History: Family History (Last Updated 03/17/17 @ 09:38 by OPAL FariaC) Father CAD (coronary artery disease) Mother CAD (coronary artery disease) Breast cancer Colon cancer Diabetes Brother CAD (coronary artery disease) CVA (cerebral vascular accident) Diabetes Social History: Patient lives with his , suffers from Alzheimer's disease, and is dependent upon him. 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 Denies use of alcohol and tobacco products. Lives: Spouse/ Significant Other Smoking Status: Never smoker Tobacco Use: Non-smoker Alcohol: None Drugs: None Review of Systems Constitutional: Denies: Chills, Fever, Weight Change Eyes: Denies: Pain, Vision Change HEENT: Denies: Difficulty Hearing, Difficulty Swallowing, Sinus Congestion Cardiovascular: Denies: Chest Pain, Palpitations Respiratory: Denies: Cough, Shortness of Breath Gastrointestinal: Denies: Diarrhea, Nausea, Vomiting Genitourinary: Denies: Dysuria, Hematuria Endocrine: Denies: Heat/ Cold Intolerance, Polydipsia, Polyuria Hematologic/ Lymphatic: Denies: Easy Bruising, Easy Bleeding - Physical Exam Vital Signs Temp Pulse Resp BP 98.2 F 91 16 140/95 H 05/02/17 13:14 05/02/17 13:14 05/02/17 13:14 05/02/17 13:14 General: Alert, Oriented x3, Cooperative, No apparent distress, Well developed, Well nourished HEENT: Atraumatic, PERRLA, EOMI, Normocephalic Oral: Moist Mucosa, No Gingival or Mucosal Lesions/ Ulcerations Neck: Supple, No JVD, Negative Carotid Bruits, Negative Hepatojugular Reflux, No Nodes, No Nuchal Rigidity, Trachea Midline Lungs: Clear to auscultation, Normal air movement, No rhonchi, No wheeze, No rales Cardiovascular: Regular rate, Regular Rhythm, Normal S1, Normal S2, No murmurs Abdomen: Bowel Sounds Present, Soft, Non Tender, Non-Distended Extremities: No clubbing, No cyanosis, No Calf Tenderness, - - Moderate bilateral lower extremity swelling and edema is noted. There is no sign of infection or cellulitis. There are no open wounds or ulcerations. Circumference measurements are documented elsewhere. Skin: No rashes, No breakdown Wound Measurements and Assessment WC - Nurse 1 - General Ulcer Measurement Start: 05/02/17 12:34 Freq: Status: Active Protocol: Activity Type Activity Date Activity User E-Sign Co-Sign Detail Recorded Client Recorded Date Recorded By Document 05/02/17 13:14 [facility] [id number] 05/02/17 13:32 [facility] Wound Center Nurse 1 [Ulcer Assessment Protocol: WC.WD.LOC] #1- BLE EDEMA - Nurse 2 - General Ulcer CM Notes Start: 05/02/17 12:34 Freq: Status: Active Protocol: Activity Type Activity Date Activity User E-Sign Co-Sign Detail Recorded Client Recorded Date Recorded By Document 05/02/17 13:49 DV [id number] 05/02/17 13:53 [facility] Wound Center Nurse 2 Musculoskeletal: No Muscle Wasting Neurological: Cranial nerves II-XII grossly intact, Neuro grossly intact Psych/Mental Status: Normal Affect, Appropriate, Alert and oriented to time, place, person, mood and affect Debridement Note Post-Debridement Measurements/Treatment - Nurse 2 - General Ulcer CM Notes Start: 05/02/17 12:34 Freq: Status: Active Protocol: Activity Type Activity Date Activity User E-Sign Co-Sign Detail Recorded Client Recorded Date Recorded By Document 05/02/17 13:49 DV [id number] 05/02/17 13:53 [facility] W[facility] Center Nurse 2 #1- BLE EDEMA -Time 13:50 -Correct Patient Yes -Correct Side, Site, Position Yes -Procedure Performed No No debridement was completed today Assessment/Plan Active Problems (Last Updated 03/17/17 @ 09:45 by Willie Ramirez NP-C) Swelling of lower extremity (Chronic) Edema of both legs (Chronic) Assessment: This is a 71-year-old male who is relatively inactive. His activity has been adversely affected by aging, and symptoms related to lumbar disc disease. He has recently undergone lumbar laminectomy. His activity has been curtailed recently, concomitant to increased swelling and edema in his lower extremities. He sleeps in a somewhat upright position, with head of bed elevated, due to gastroesophageal reflux disease. He denies a history of thrombophlebitis. It appears as though the patient's lifestyle and habits account for his swelling and edema in the lower extremities. Plan: The patient and his son, who is at the bedside, have been counseled in the appropriate lifestyle measures to be implemented relative to the lower extremity swelling and edema. He has been advised to elevate his lower extremities as much as possible, even during daytime hours. Elevation is to be accomplished to heart level, or higher. He is to avoid idle standing and sitting. Activity has been encouraged, such as walking, biking, swimming, jogging, etc. The benefits of activity have been thoroughly explained, including the recruitment of calf and foot muscle pumps. We are to obtain an ankle-brachial index bilaterally, to determine the degree of compression which would be appropriate to implement in the lower extremities on a daily basis. It is anticipated that we will start with compression wraps, such as SurePress or 3M 2 layer compression wraps, and will ultimately transition to the use of graduated compression stockings of at least 20-30 mmHg compression. Control of patient's weight has also been recommended. Patient will return weekly and his progress will be documented serially. Patient stands 5 feet 9 inches tall. He weighs 210 pounds. His BMI is 31, which places him in the overweight category. Weight loss has been recommended, and the patient has been advised to collaborate with his primary care physician in this regard. The patient is not a smoker. Influenza vaccine was not administered today. The left ankle pressure was unobtainable due to the noncompressibility of the vasculature. The right ankle-brachial index was 1.05. Because of the patient's recent lumbar surgery, and limitations in flexibility, we will start using 3M 2 layer compression wraps which will be changed twice weekly. 05/02/17 1420 <Electronically signed by Matthew Martinez MD> Date Matthew Martinez MD CC: Signed 12 LEAD ELECTROCARDIOGRAM Observed: 05/02/2017 Status: F Source: [place] 1:11 PM [facility] [place] [facility] Cardiovascular Services [address] [place] [address] 12 Lead EKG 04/29/17 1910 MR#: [id number] Acct: [id number] Name: IMAN ANDREA Rep #: [id number] : 1945 71 From: Kayode Esteban MD Attending Dr: Status: DEP ER Ordering Dr: Major Scherer MD Date: 04/29/17 Location: ED Sex: M C Admitted: Test Reason : EDEMA Blood Pressure : / mmHG Vent. Rate : 084 BPM Atrial Rate : 084 BPM P-R Int : 194 ms QRS Dur : 086 ms QT Int : 378 ms P-R-T Axes : 034 -28 -11 degrees QTc Int : 446 ms Normal sinus rhythm Leftward axis Confirmed by EULALIA ACEVES, KAYODE ([id number]), photo editor ANDREAS PARKER ([id number]) on 05/02/2017 1:10:42 PM Referred By: AMPARO Confirmed By:KAYODE ESTEBAN MD 05/02/17 1310 Date Kayode Esteban MD CC: Major Scherer MD; Simon Willams Signed EMERGENCY DEPARTMENT Observed: 05/02/2017 Status: F Source: [place] SUMMARY 1:13 AM [facility] [place] [facility] Medical Records Department [address] [place] [address] Emergency Department Summary 04/29/172119 MR#: [id number] Acct: [id number] Name: IMAN ANDREA Rep #: [id number] : 1945 71 From: Major Scherer MD PCP: Simon Willams Status: DEP ER - ER Visit Summary Date of Service: 04/29/17 Chief Complaint: Leg swelling History of Present Illness: The patient is a [address] Esteban and Dr. Cornell. He reports he has had swelling of his left leg and foot for approximately 2-3 years. Over the past 3 months he has noticed that his right leg has become swollen. Reports that this got much worse last night. States that he is having pain in his legs. Describes as an aching, throbbing pain that is 9 out of 10 with elevating his legs. He is pain-free otherwise. Patient reports he was placed on 2 weeks of Lasix approximately [address] Cornell. He is not on Lasix now. Of note the patient reports he had a laminectomy 10 days ago at [facility] by Dr. Vazquez. He was hospitalized for 3 days. Reports that he did have a PE 10-12 years ago. Is not on any anticoagulants. Physical Examination: Vitals: Stable. Afebrile. General: Well-nourished and well-developed. Head: Normocephalic atraumatic. Neck: Supple, no lymphadenopathy. No JVD. Nontender. Cardiovascular: Regular rate and rhythm. No murmurs. Respiratory: No respiratory distress. Clear to auscultation bilaterally. Abdominal: Soft, nontender, nondistended, normal bowel sounds. No guarding, rebound, or peritoneal signs. Back: Midline lumbar incision is clean, dry, and intact. There is no surrounding erythema. There is appropriate postoperative tenderness to palpation. Extremities: Nontender, 3+ pitting edema of his lower extremities bilaterally. Skin: Normal color, no rash. Neurologic: Alert and oriented 3. Cranial nerves II through XII are intact. Normal strength and sensation. Psych: Normal affect. Test Results: EKG is sinus at [address] changes. CBC is remarkable for an H AND H of 10.5 and 32.6, segmented neutrophils of 73, lymphocytes of 15. Chem-7 is more for calcium of 8.0. LFTs are marked for an albumin of 2.9. Troponin is normal. PT EXHIBIT BUILDER is 20.3. Bilateral lower extremity Dopplers is performed by ultrasound showed no DVT from the popliteal vein proximally. They were unable to visualize the calf veins due to the edema. Emergency Department Course and Treatment: The patient is resting comfortably. He has refused a dose of Lasix here. Treatment Plan: Patient has an appointment to see Dr. Martinez in 3 days. He is instructed to keep this appointment and likely will require repeat venous Dopplers to ensure that he does not have a clot in the calf itself. He will be placed on Lasix 40 mg p.o. daily with the dispose 7. Instructed to follow-up with Dr. Cornell for further evaluation and treatment of his leg swelling. I did discuss than the low albumin and the high- protein diet may be helpful. Return to the emergency department for any worsening symptoms. Disposition: To home in improved and stable condition. Impression: 1. Peripheral edema. 2. Hypoalbuminemia. 3. 10 days status post laminectomy. This note was generated with Plat[employer] dictation software. It may contain incorrect words, spelling, and punctuation that were not noted in review of the chart prior to signing ED Disposition - Plan for ED Patient: Disposition: Home or Assisted Living Chief Complaint: Edema Instructions: ED Leg Swelling Bilateral Prescriptions: Furosemide [Lasix] 40 mg PO DAILY #7 tablet Referrals: Simon Willams MD [Primary Care Provider] - 5-7 Days What to do if you have Problems For any increased pain, shortness of breath, bleeding, nausea or vomiting, chest pain, or any unexpected problems, contact your Primary Care Provider. Call [facility] ([phone]) or report to the closest Emergency Room. Call 911 if necessary. 05/02/17 0111 <Electronically signed by Major Scherer MD> Date Major Scherer MD Cosigner Signature (If Indicated): Date CC: Simon Willams VENOUS DUPLEX Observed: 04/29/2017 Status: F Source: [place] IMAG/RYAN EXTREM 7:40 PM [facility] [place] [facility] Imaging Services [address] [place] [address] Venous Duplex Imag/Ryan Extrem MR#: [id number] Acct: [id number] Name: EMREIMAN Lovell Rep #: [id number] : 1945 M 71 From: Huy Wills MD PCP: Simon Willams Status: REG ER Study: Venous Duplex Imag/Ryan Extrem Date of Exam: 04/29/17 Exam# [id number] Ordering Dr: Major Scherer MD STUDY: VENOUS DOPPLER ULTRASOUND - BILATERAL LOWER EXTREMITIES REASON FOR EXAM: Male, 71 years old. Pain and swelling TECHNIQUE: Ultrasound evaluation of the deep vein system to include du-scale imaging and compression was performed. Du-scale imaging and Doppler sonographic evaluation, including duplex spectral analysis and qualitative color flow sonography, was performed. COMPARISON: None. FINDINGS: RIGHT LEG Common Femoral Vein: Normal compression, spontaneity and augmentation. Normal color Doppler. Common Femoral Vein/Greater Saphenous Junction: Normal compression, spontaneity and augmentation. Normal color Doppler. Deep Femoral Vein: Normal compression, spontaneity and augmentation. Normal color Doppler. Superficial Femoral Proximal: Normal compression, spontaneity and augmentation. Normal color Doppler. Superficial Femoral Middle: Normal compression, spontaneity and augmentation. Normal color Doppler. Superficial Femoral Distal: Normal compression, spontaneity and augmentation. Normal color Doppler. Popliteal Vein: Normal compression, spontaneity and augmentation. Normal color Doppler. Posterior Tibial Vein: Normal compression, spontaneity and augmentation. Normal color Doppler. Peroneal Vein: Normal compression, spontaneity and augmentation. Normal color Doppler. There is subcutaneous edema in the calf. LEFT LEG Common Femoral Vein: Normal compression, spontaneity and augmentation. Normal color Doppler. Common Femoral Vein/Greater Saphenous Junction: Normal compression, spontaneity and augmentation. Normal color Doppler. Deep Femoral Vein: Normal compression, spontaneity and augmentation. Normal color Doppler. Superficial Femoral Proximal: Normal compression, spontaneity and augmentation. Normal color Doppler. Superficial Femoral Middle: Normal compression, spontaneity and augmentation. Normal color Doppler. Superficial Femoral Distal: Normal compression, spontaneity and augmentation. Normal color Doppler. Popliteal Vein: Normal compression, spontaneity and augmentation. Normal color Doppler. Posterior Tibial Vein: Normal compression, spontaneity and augmentation. Normal color Doppler. Peroneal Vein: Normal compression, spontaneity and augmentation. Normal color Doppler. There is subcutaneous edema in the calf. US/Venous Duplex Imag/Ryan Extrem IMPRESSION: Normal venous Doppler ultrasound of the bilateral lower extremities. Electronically Signed: Huy Wills, at 21:23 EST Tel , Service support , CC: Major Scherer MD; Simon Willams Binder Cutter Hand: Signed CBC W/DIFF, AUTOMATED Collected: 04/29/2017 Status: F Source: [place] 7:15 PM [facility] [place] TYPE CODE TESTS RESULT OUT OF RANGE REFERENCE UNITS LAB L100.1000 4.4-11.0 K/mm3 Normal WBC 7.4 LAB L100.1200 4.6-6.2 M/mm3 Low RBC 3.19 LAB L100.1300 13.0-16.5 g/dl Low HGB 10.5 LAB L100.1400 40-54 % Low HCT 32.6 LAB L100.1500 80-94 fL High MCV 102.2 LAB L100.1600 27.0-32.0 pg High MCH 32.9 LAB L100.1700 32-36 g/gl Normal MCHC 32.2 LAB L100.1810 11.6-14.6 % High RDW CV 14.9 LAB L100.1820 35.1-43.9 fl High RDW SD 54.9 LAB L100.1900 150-450 K/mm3 Normal PLT 321 LAB L100.2000 6.2-12.0 fl Normal MPV 8.5 LAB L100.2100 47-70 % High NEUT% 72.5 LAB L100.2200 19-41 % Low LY% 15.1 LAB L100.2300 0-10 % Normal MONO% 9.0 LAB L100.2400 0-5 % Normal EO% 2.8 LAB L100.2500 0-1 % Normal BASO% 0.3 LAB L100.2550 0.0-0.9 % Normal IM GRAN % 0.300 Result Comment: IG% - Immature Granulocytes (promyelocytes, myelocytes and metamyelocytes) > 1% indicates that a LEFT SHIFT is Present. LAB L100.2620 2.0-7.7 X10 3/uL Normal Absolute Neut 5.4 LAB L100.2720 0.83-4.51 X10 3/ul Normal Absolute Lymph 1.12 Performed By: #### L100.0100 #### [facility] [address] [place], [place], [address] BASIC METABOLIC Collected: 04/29/2017 Status: F Source: [place] PROFILE (BMP) 7:15 PM [facility] [place] Order Comment: 'TROP' Serial specimen #1, #2, #3, or #4: 1 TYPE CODE TESTS RESULT OUT OF RANGE REFERENCE UNITS LAB L501.0100 74-106 mg/dL Normal GLU 100 Result Comment: Fasting Glucose result from 100 to 125 mg/dL suggests IMPAIRED HOMEOSTASIS per A.D.A. criteria. Please note revised GLUCOSE reference range effective 2017. LAB L501.1000 7-18 mg/dL Normal BUN 14 LAB L501.1100 0.70-1.30 mg/dL Normal CREAT,SERUM 1.04 Result Comment: The validity of the calculated GFR AND GFRAA in patients over 70 years has not been determined. Clinical correlation is essential. LAB L501.1110 >60 mL/min Normal EST GFR 74 Result Comment: Non- GFR Calc LAB L501.1115 >60 mL/min Normal EST GFR - AA 90 Result Comment: GFR Calc LAB L501.1255 ml/min Normal Estimated CRCL 63.26 LAB L501.1300 10-20 RATIO Normal BUN/CRE 13.5 LAB L501.2200 8.5-10 mg/dL Low .1 CA 8.0 LAB L501.5300 136-14 mmol/L Normal 5 NA 140 LAB L501.5600 3.5-5. mmol/L Normal 1 K 3.9 LAB L501.5900 98-107 mmol/L Normal CL 107 LAB L501.6100 21.0-3 mmol/L Normal 2.0 CO2 25.0 LAB L501.6200 5-15 Normal GAP 8 Performed By: #### L500.2500, L500.3400, L501.4010 #### [facility] [address] [place], [address] LIVER PROFILE Collected: 04/29/2017 Status: F Source: [place] 7:15 PM [facility] [place] Order Comment: 'TROP' Serial specimen #1, #2, #3, or #4: 1 TYPE CODE TESTS RESULT OUT OF RANGE REFERENCE UNITS LAB L501.1500 6.4-8.2 g/dL Normal T PROT 6.6 LAB L501.1800 3.2-5.0 g/dL Low ALB 2.9 LAB L501.1950 2.2-4.2 g/dL Normal GLOB 3.7 LAB L501.4100 15-37 U/L Normal AST 29 LAB L501.4305 45-117 U/L Normal ALK P 97 LAB L501.4405 16-61 U/L Normal ALT 33 Result Comment: Please note revised ALT reference range effective 2017. LAB L501.4600 0.20-1.00 mg/dL Normal T BILI 0.20 LAB L501.4700 0.00-0.30 mg/dL Normal D BILI 0.09 Performed By: #### L500.2500, L500.3400, L501.4010 #### [facility] [address] [place], [place], [address] TROPONIN-I Collected: 04/29/2017 Status: F Source: [place] 7:15 PM [facility] [place] Order Comment: 'TROP' Serial specimen #1, #2, #3, or #4: 1 TYPE CODE TESTS RESULT OUT OF RANGE REFERENCE UNITS LAB L501.4010 <0.06 ng/mL Normal 0.02 TROPONIN-I Result Comment: TROPONIN-I EXPECTED VALUES <0.05 NEGATIVE 0.06 - 0.59 AT RISK OF [place] > OR = 0.60 SUGGEST [place] Performed By: #### L500.2500, L500.3400, L501.4010 #### [facility] [address] [place], [place], [address] BNP,B-TYPE NATRIURETIC Collected: 04/29/2017 Status: F Source: [place] PEPTIDE 7:15 PM [facility] [place] TYPE CODE TESTS RESULT OUT OF RANGE REFERENCE UNITS LAB L503.6620 0-100 pg/mL Normal B-TYPE 20.3 ARCHIE PEP Performed By: #### L503.6620 #### [facility] [address] [place], [place], [address] ALLERGIES ALLERGIES DATE TYPE / NAME / CODE REACTION SEVERITY SOURCE CODE 11/04/2017 Drug Antihistamines - Other Unknown Cyndi Allergy/41 Ethylenediamine/F001 [facility] [id number](SN [id number](RXNORM) [facility]) Repository ENCOUNTERS ENCOUNTERS ADMIT/DISCHARGE ACCOUNT ADMITTING ENCOUNTER LOCATION SOURCE NUMBER CLASS 04/10/2018 [id number] Ambulatory [place] [facility] [place] 2 [facility] ing:LAB.FUTUR Repository E 03/27/2018 [id number] Ambulatory [place] [facility] 1 [facility] ing:LABSPEC Repository 02/27/2018 [id number] Ambulatory [facility] [place] [facility] [place] 0 [facility] ing:LAB.FUTUR Repository E 01/11/2018 [id number] Ambulatory BMSBuilding:B [facility] 1 [facility] Repository 12/05/2017 [id number] Ambulatory Cyndi Cyndi 7 [facility] ing:LAB.FUTUR Repository E 11/15/2017/ [id number] Ambulatory [place] [address] 8 8 [facility] ing:CLSP Repository 11/15/2017 [id number] Ambulatory BMSBuilding:W Cyndi 3 [facility] Repository 11/08/2017 [id number] Ambulatory [place] 5 [facility] ing:MTRAD Repository 11/04/2017/ [id number] Ambulatory BMSBuilding:B Cyndi 8 0 [place] Repository 09/23/2017 [id number] Ambulatory Cyndi Cyndi 0 [facility] ing:LAB.FUTUR Repository E 08/16/2017 [id number] Ambulatory [place] [address] 0 [facility] ing:LAB.FUTUR Repository E 08/16/2017 [id number] Ambulatory [place] [address] 7 [facility] ing:BFHLAB Repository 08/02/2017 [id number] Ambulatory Cyndi Cyndi 5 [facility] ing:PSN Repository 08/01/2017 [id number] Ambulatory Cyndi Cyndi 3 [facility] ing:US Repository 07/25/2017 [id number] Ambulatory [place] 3 [facility] ing:LAB.FUTUR Repository E 07/15/2017/ [id number] Ambulatory [place] [address] 8 3 [facility] ing:EN Repository 2017 [id number] Ambulatory BMSBuilding:B Cyndi 1 [facility] Repository 07/13/2017/ [id number] Ambulatory BMSBuilding:B [address] [place] 8 1 [facility] Repository 07/07/2017/ [id number] Ambulatory BMSBuilding:B [address] 8 7 [facility] Repository 07/01/2017 [id number] Ambulatory [place] [facility] [place] 0 [facility] ing:LAB.FUTUR Repository E 06/29/2017 [id number] Ambulatory [place] Cyndi 6 [facility] ing:WC Repository 06/20/2017 [id number] Ambulatory [place] [address] 7 [facility] ing:BFHLAB Repository 06/01/2017 [id number] Ambulatory [facility] [place] [facility] [place] 6 [facility] ing:MTRAD Repository 05/30/2017 [id number] Ambulatory BMSBuilding:B [address] 6 [facility] Repository 05/30/2017/ [id number] Ambulatory [place] Cyndi 8 1 [facility] ing:WC Repository 05/16/2017/ [id number] Ambulatory [place] [address] 8 9 [facility] ing:WC Repository 04/29/2017/ [id number] Emergency [address] [place]di 8 2 [facility] ing:ED Repository PAYERS PAYERS ENCOUNTER GUARANTOR PAYER SUBSCRIBER SOURCE 04/10/2018 IMAN Lovell Primary Insurance:AETNA IMAN Lovell Cyndi [id number] [facility]ENTERPolicy Number: MCCONNELLDOB[facility] [place] MEBGHQYWEffewvumedicine [facility] [id number] Date:8954-75-12YQ BOX Repository 64542Dch: [phone] WILMA GARNICA [phone] (JR) [phone]: 04/10/2018 Secondary NOT GIVENUNK Cyndi Insurance:SELF PAY Community INSURANCEPolicy Number: Hospital Effective Repository Date:2018-02-28 03/27/2018 IMAN Lovell Primary Insurance:AETNA IMAN Hanna [id number] MCRPolicy Number: MCCONNELLDOB: Community DEER KOJO CABELLOBGHQYWEffective [id number], [place] Date:7318-35-61OU BOX Repository [address]Bxz: [phone] [place], [place] [phone] () [phone]: 03/27/2018 Secondary NOT GIVENUNK Cyndi Insurance:SELF PAY Community INSURANCEPolicy Number: Hospital Effective Repository Date:2018-03-27 02/27/2018 IMAN Lovell Primary Insurance:AETNA IMAN Hanna [id number] MCRPolicy Number: MCCONNELLDOB: Community WHIT CABELLOBGHQYWEffective [id number] [facility] [place] Date:8929-79-43MQ BOX Repository [address]Mqb: [phone] [place], [place] [phone] () [phone]: 02/27/2018 Secondary NOT GIVENUNK Cyndi Insurance:SELF PAY Community INSURANCEPolicy Number: Hospital Effective Repository Date:2017-12-06 01/11/2018 IMAN Lovell Primary Insurance:AETNA IMAN Hanna [id number] MCRPolicy Number: MCCONNELLDOB: Community WHIT CABELLOBGHQYWEffective [id number] [place] Date:5041-60-92SN BOX Repository [address]Lvv: [phone] [place], [place] [phone] () [phone]: 01/11/2018 Secondary NOT GIVENUNK [address] Insurance:SELF PAY Community INSURANCEPolicy Number: Hospital Effective Repository Date:2017-07-13 12/05/2017 IMAN Lovell Primary Insurance:AETNA IMAN Hanna [id number] MCRPolicy Number: MCCONNELLDOB: Community DEER KOJO CABELLOBGHQYWEffective [id number] [facility] [place] Date:3511-17-06XU BOX Repository [address]Ukr: [phone] [place], [place] [phone] (HP) [phone]: 12/05/2017 Secondary NOT GIVEN[place] Insurance:SELF PAY Community INSURANCEPolicy Number: Hospital Effective Repository Date:2017-09-23 11/15/2017 IMAN S Primary Insurance:AETNA IMAN Hanna [id number] MCRPolicy Number: MCCONNELLDOB: Community [place] BGHQYWEffective [id number] [facility] [place] Date:7459-98-68QH BOX Repository [address]Cgm: [phone] [place], [place] [phone] (HP) [phone]: 11/15/2017 Secondary NOT GIVENUNK [place] Insurance:SELF PAY Community INSURANCEPolicy Number: Hospital Effective Repository Date:2017-11-04 11/15/2017 IMAN S Primary Insurance:AETNA IMAN Hanna [id number] MCRPolicy Number: MCCONNELLDOB: Community DEER [place] CABELLOBGHQYWEffective [id number] [facility] [place] Date:4372-27-07JH BOX Repository [address]Gct: [phone] [place], [place] [phone] (HP) [phone]: 11/15/2017 Secondary NOT GIVENUNK [place] Insurance:SELF PAY Community INSURANCEPolicy Number: Hospital Effective Repository Date:2017-11-15 11/08/2017 IMAN S Primary Insurance:AETNA IMAN Hanna [id number] MCRPolicy Number: MCCONNELLDOB: Community DEER [place] CABELLOBGHQYWEffective [id number] Date:0720-64-58AO BOX Repository [address]Dfp: [phone] [place] [phone] (HP) [phone]: 11/08/2017 Secondary NOT GIVENUNK [place] Insurance:SELF PAY Community INSURANCEPolicy Number: Hospital Effective Repository Date:2017-11-08 11/04/2017 IMAN Lovell Primary Insurance:AETNA IMAN Hanna [id number] MCRPolicy Number: MCCONNELLDOB: Community WHIT CABELLOBGHQYWEffective [id number] Date:9713-83-08LU BOX Repository [address]Bgj: [id number] [facility] [place] [phone] () [phone]: 11/04/2017 Secondary NOT GIVEN[place]K [place] Insurance:SELF PAY Community INSURANCEPolicy Number: Hospital Effective Repository Date:2017-11-04 09/23/2017 IMAN S Primary Insurance:AETNA IMAN Hanna [id number] MCRPolicy Number: MCCONNELLDOB: Community WHIT CABELLOBGHQYWEffective [id number] Date:0115-62-52UK BOX Repository [address]Jah: [phone] [facility], [place] [phone] () [phone]: 09/23/2017 Secondary NOT GIVENUNK Cyn[place] Insurance:SELF PAY Community INSURANCEPolicy Number: Hospital Effective Repository Date:2017-08-17 08/16/2017 IMAN Lovell Primary Insurance:AETNA IMAN Hanna [id number] MCRPolicy Number: MCCONNELLDOB: Community WHIT CABELLOBGHQYWEffective [id number] [facility] [place] Date:8531-99-08RG BOX Repository [address]Zha: [phone] [facility], [place] [phone] () [phone]: 08/16/2017 Secondary NOT GIVENUNK [place] Insurance:SELF PAY Community INSURANCEPolicy Number: Hospital Effective Repository Date:2017-08-02 08/16/2017 IMAN Lovell Primary Insurance:AETNA IMAN Hanna [id number] MCRPolicy Number: MCCONNELLDOB: Community DEER [place] CABELLOBGHQYWEffective [id number] [facility] [place] Date:4192-09-40GZ BOX Repository 82017Fob: [phone] [place], [place] [phone] (HP) [phone]: 08/16/2017 Secondary NOT GIVENUNK Cyndi Insurance:SELF PAY Community INSURANCEPolicy Number: Hospital Effective Repository Date:2017-08-04 08/02/2017 IMAN S Primary Insurance:AETNA IMAN Hanna [id number] MCRPolicy Number: MCCONNELLDOB: Community [place] MEBGHQYWEffective [id number] [facility] [place] Date:8535-55-97BD BOX Repository [address]Rqa: [phone] [place], [place] [phone] (HP) [phone]: 08/02/2017 Secondary NOT GIVENUNK [place] Insurance:SELF PAY Community INSURANCEPolicy Number: Hospital Effective Repository Date:2017-07-27 08/01/2017 IMAN S Primary Insurance:AETNA IMAN Hanna [id number] MCRPolicy Number: MCCONNELLDOB: Community [place] MEBGHQYWEffective [id number] [facility] [place] Date:9824-95-19ZP BOX Repository [address]Vlg: [phone] [place] [phone] (HP) [phone]: 08/01/2017 Secondary NOT GIVENUNK Cyndi Insurance:SELF PAY Community INSURANCEPolicy Number: Hospital Effective Repository Date:2017-07-27 07/25/2017 IMAN S Primary Insurance:AETNA IMAN Hanna [id number] MCRPolicy Number: MCCONNELLDOB: Community [place] MEBGHQYWEffective [id number] Date:5036-11-06LW BOX Repository [address]Uiq: [phone] [place] [phone] (HP) [phone]: 07/25/2017 Secondary NOT GIVENUNK [place] Insurance:SELF PAY Community INSURANCEPolicy Number: Hospital Effective Repository Date:2017-07-04 2017 IMAN Lovell Primary Insurance:AETNA IMAN Hanna [id number] MCRPolicy Number: MCCONNELLDOB: Community [place] BGHQYWEffective [id number] Date:8998-95-90XF BOX Repository [address]Ggt: [phone] [place] [phone] (HP) [phone]: 2017 Secondary NOT GIVENUNK [place] Insurance:SELF PAY Community INSURANCEPolicy Number: Hospital Effective Repository Date:2017-07-07 2017 IMAN Lovell Primary Insurance:AETNA IMAN Hanna [id number] MCRPolicy Number: MCCONNELLDOB: Community DE[place] CABELLOBGHQYWEffective [id number] [facility] [place] Date:4999-55-36TL BOX Repository [address]Ksa: [phone] [place] [phone] (HP) [phone]: 2017 Secondary NOT GIVENUNK [place] Insurance:SELF PAY Community INSURANCEPolicy Number: Hospital Effective Repository Date:2017 07/13/2017 IMAN Lovell Primary Insurance:AETNA IMAN Hanna [id number] MCRPolicy Number: MCCONNELLDOB: Community [place] MEBGHQYWEffective [id number] [facility] [place] Date:4538-45-29TO BOX Repository [address]Sjh: [phone] [place] [phone] (HP) [phone]: 07/13/2017 Secondary [place]IV[place] Insurance:SELF PAY Community INSURANCEPolicy Number: Hospital Effective Repository Date:2017-03-07 07/07/2017 IMAN Lovell Primary Insurance:AETNA IMAN Hanna [id number] MCRPolicy Number: MCCONNELLDOB: Community [place] BGHQYWEffective [id number] [facility] [place] Date:3137-07-05JJ BOX Repository [address]Dwv: [phone] [place], [place] [phone] (HP) [phone]: 07/07/2017 Secondary [place] GIVEN[place] Insurance:SELF PAY Community INSURANCEPolicy Number: Hospital Effective Repository Date:2017-07-07 07/01/2017 IMAN S Primary Insurance:AETNA IMAN Hanna [id number] MCRPolicy Number: MCCONNELLDOB: Community WHIT CABELLOBGHQYWEffective [id number] [facility] [place] Date:9631-44-97IC BOX Repository [address]Kxa: [phone] [place] [phone] (HP) [phone]: 07/01/2017 Secondary NOT GIVENUNK [place] Insurance:SELF PAY Community INSURANCEPolicy Number: Hospital Effective Repository Date:2017-06-21 06/29/2017 IMAN S Primary Insurance:AETNA IMAN Hanna [id number] MCRPolicy Number: MCCONNELLDOB: Community WHIT CABELLOBGHQYWEffective [id number] [facility] [place] Date:0116-42-26VX BOX Repository [address]Xbo: [phone] [place] [phone] (HP) [phone]: 06/29/2017 Secondary NOT GIV[place] Insurance:SELF PAY Community INSURANCEPolicy Number: Hospital Effective Repository Date:2017-06-19 06/20/2017 IMAN S Primary Insurance:AETNA IMAN Hanna [id number] MCRPolicy Number: MCCONNELLDOB: Community WHIT CABELLOBGHQYWEffective [id number] Date:6698-14-06ZC BOX Repository [address]Syw: [phone] [place] [phone] (HP) [phone]: 06/20/2017 Secondary NOT GIVENUNK [place] Insurance:SELF PAY Community INSURANCEPolicy Number: Hospital Effective Repository Date:2017-06-20 06/01/2017 IMAN Lovell Primary Insurance:AETNA IMAN Hanna [id number] MCRPolicy Number: MCCONNELLDOB: Community WHIT [place] MEBGHQYWEffective [id number], [place] Date:0838-07-37SI BOX Repository [address]Rwy: [phone] [facility] [place] [phone] (HP) [phone]: 06/01/2017 Secondary NOT GIVENUNK [place] Insurance:SELF PAY Community INSURANCEPolicy Number: Hospital Effective Repository Date:2017-06-01 05/30/2017 IMAN Lovell Primary Insurance:AETNA IMAN Hanna [id number] MCRPolicy Number: MCCONNELLDOB: Community WHIT CABELLOBGHQYWEffective [id number], [place] Date:0549-82-29CT BOX Repository [address]Ttk: [phone] [facility] [place] [phone] (HP) [phone]: 05/30/2017 Secondary NOT GIVENUNK [place] Insurance:SELF PAY Community INSURANCEPolicy Number: Hospital Effective Repository Date:2017-05-30 05/30/2017 IMAN Lovell Primary Insurance:AETNA IMAN Hanna [id number] MCRPolicy Number: MCCONNELLDOB: Community [place] MEBGHQYWEffective [id number], [place] Date:6043-01-07AX BOX Repository [address]Lob: [phone] [place] [phone] (HP) [phone]: 05/30/2017 Secondary NOT GIVENUNK Cyndi Insurance:SELF PAY Community INSURANCEPolicy Number: Hospital Effective Repository Date:2017-05-19 05/16/2017 IMAN Lovell Primary Insurance:AETNA IMAN Hanna [id number] MCRPolicy Number: MCCONNELLDOB: [facility] WHIT VARMA MEBGHQYWEffective [id number], [place] Date:5309-52-32FK BOX Repository [address]Hfc: [phone] [place], [place] [phone] () [phone]: 05/16/2017 Secondary NOT GIVENUNK Cyndi Insurance:SELF PAY Community INSURANCEPolicy Number: Hospital Effective Repository Date:2017-04-26 04/29/2017 IMAN Lovell Primary Insurance:AETNA IMAN S Cyndi [id number] MCRPolicy Number: MCCONNELLDOB: [facility] WHIT VARMA MEBGHQYWEffective [id number], [place] Date:3316-62-01LC BOX Repository [address]Fpg: [phone] [place] [phone] () [phone]: 04/29/2017 Secondary NOT GIVENUNK [place] Insurance:SELF PAY Community INSURANCEPolicy Number: Hospital Effective Repository Date:2017-04-29
== END ==
PROVIDERS: Family Provider Family Medicine; PCP Family Medicine; Visit Provider Family Medicine
DX: E03.9 Hypothyroidism, unspecified (principal); R06.00 Dyspnea, unspecified
CPT/HCPCS: 36415; 80048; 84439; 84443

== ENCOUNTER → 2018-05-22 13:36 | Outpatient (CLI) | payer MEDICARE, SELFPAY ==
--- NOTE | 2018-05-22 13:56 | RAD_ITS ---
STUDY: X-RAY - LUMBAR SPINE REASON FOR EXAM: Male, 72 years old. Low back pain and right leg pain. History of prior lumbar surgery. TECHNIQUE: 5 view(s) of the lumbar spine were obtained including oblique views. COMPARISON: None FINDINGS: There is straightening of the normal lumbar lordosis. There is a dextroscoliosis of the lumbar spine. Minimal anterior listhesis of L4 on L5. There is multilevel endplate spondylosis of the lumbar vertebrae. There is multi-level degenerative disc disease with multi-level disc space narrowing. The patient is status post L4-L5 and L5-S1 laminectomy with interpedicular screw and carlos eduardo fixation. There is mild atherosclerotic calcification of the abdominal aorta without a demonstrated aneurysm. RAD/L/S Spine Min 4 Views IMPRESSION: Degenerative changes of the spine, as detailed above. Prior laminectomy at the L4-L5 and L5-S1 levels with interpedicular screw fixation. Electronically Signed: Sundeep Miller, at 10:22 EST , Service support ,
[2018-05-22 15:35] LABS: T4 Free Direct 1.07 ng/dL (0.76-1.46); Thyroid Stim Hormone (TSH) 1.13 uIU/mL (0.358-3.74)
== END ==
PROVIDERS: Family Provider Family Medicine; PCP Family Medicine; Referring Provider Family Medicine; Visit Provider Family Medicine
DX: E03.9 Hypothyroidism, unspecified (principal); M54.5 Low back pain; M62.830 Muscle spasm of back
CPT/HCPCS: 36415; 72110; 84439; 84443

== ENCOUNTER → 2018-06-05 13:57 | Outpatient (CLI) | payer MEDICARE, SELFPAY ==
[2018-05-30 14:37] VITALS: BMI 31.4
[2018-06-05 14:36] LABS: Erythrocyte Sedimentation Rate 17 mm/hr (0-20)
[2018-06-05 14:38] LABS: Absolute Lymphocyte Count 1.17 X10^3/ul (0.83-4.51); Absolute Neutrophil Count 4.8 X10^3/uL (2.0-7.7); Basophil# 0.02 X10^3/uL; Basophil% 0.3 % (0-1); Eosinophil# 0.19 X10^3/uL; Eosinophils% 2.7 % (0-5); Hematocrit 41.7 % (40-54); Hemoglobin 13.5 g/dl (13.0-16.5); Lymphocyte # 1.17 X10^3/ul (4.0); Lymphocyte % 16.8 % (19-41); Mean Corp Hgb Conc 32.4 g/gl (32-36); Mean Corpuscular Hgb 34.2 pg (27.0-32.0); Mean Corpuscular Volume 105.6 fL (80-94); Monocyte# 0.81 X10^3/uL; Monocyte% 11.7 % (0-10); Neutrophil # 4.75 X10^3/uL (2.7-7.7); Neutrophil % 68.4 % (47-70); Platelet Count 187 K/mm3 (150-450); RBC Distribution Width CV 14.2 % (11.6-14.6); RBC Distribution Width SD 54.8 fl (35.1-43.9); Red Blood Count 3.95 M/mm3 (4.6-6.2)
[2018-06-05 14:39] LABS: POSITIVE COUNT NO; POSITIVE DIFFERENTIAL NO; POSITIVE MORPHOLOGY NO
[2018-06-05 14:52] LABS: ALB/GLOB Ratio 1.1 RATIO (0.9-2.4); AST(SGOT) 22 U/L (15-37); Alanine Aminotransfer ALT/SGPT 28 U/L (16-61); Albumin, Serum 3.7 g/dL (3.2-5.0); Alkaline Phosphatase 113 U/L (45-117); Anion Gap 6 (5-15); BUN 20 mg/dL (7-18); BUN/Creat Ratio 16.4 RATIO (10-20); CRP 5.26 mg/L (0.0-3.0); Calcium,Total 8.6 mg/dL (8.5-10.1); Chloride 111 mmol/L (98-107); Creatinine, Serum 1.22 mg/dL (0.70-1.30); EST Glomerular Filtration Rate 62 mL/min (>60); Est Glom Filt Rate - Afr Amer 75 mL/min (>60); Globulin 3.4 g/dL (2.2-4.2); Glucose 124 mg/dL (74-106); Potassium 4.1 mmol/L (3.5-5.1); Protein, Total 7.1 g/dL (6.4-8.2); Sodium Level 143 mmol/L (136-145)
== END ==
PROVIDERS: Family Provider Family Medicine; PCP Family Medicine; Visit Provider Internal Medicine Rheumatology
DX: M46.90 Unspecified inflammatory spondylopathy, site unspecified (principal); M17.0 Bilateral primary osteoarthritis of knee; M75.40 Impingement syndrome of unspecified shoulder; M19.072 Primary osteoarthritis, left ankle and foot; M51.37 Other intervertebral disc degeneration, lumbosacral region; N20.0 Calculus of kidney; I70.90 Unspecified atherosclerosis; I87.2 Venous insufficiency (chronic) (peripheral); Z86.711 Personal history of pulmonary embolism; Z79.899 Other long term (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
CPT/HCPCS: 36415; 80053; 85025; 85652; 86140

== ENCOUNTER 2018-08-11 23:46 | Emergency (ER) | payer MEDICARE, SELFPAY ==
[2018-05-30 14:37] VITALS: BMI 31.4
[2018-08-11 23:48] VITALS: BP 146/92; PULSE 95; RESP 18; TEMP 36.9; O2SAT 98; BMI 31.0
--- NOTE | 2018-08-12 00:07 | ED.RN ---
rn called for ekg, pulled old ekgs for
--- NOTE | 2018-08-12 00:22 | EKG12_ITS ---
Test Reason : SOB Blood Pressure : / mmHG Vent. Rate : 079 BPM Atrial Rate : 079 BPM P-R Int : 184 ms QRS Dur : 094 ms QT Int : 382 ms P-R-T Axes : 021 -42 000 degrees QTc Int : 438 ms Normal sinus rhythm Left axis deviation Moderate voltage criteria for LVH, may be normal variant Abnormal ECG Confirmed by BIA LUCIO ([id number]), film or videotape editor ANDREAS PARKER ([id number]) on 08/16/2018 11:37:14 AM Referred By: CIRILO Confirmed By:CHRISTINA LUCIO
--- NOTE | 2018-08-12 00:22 | CT_ITS ---
STUDY: CT CHEST WITHOUT CONTRAST REASON FOR EXAM: Male, 73 years old. Trauma RADIATION DOSAGE (If Supplied By Facility): CTDIvol = ( 19.42 ) mGy, DLP = ( 757.17 ) mGycm TECHNIQUE: Transaxial imaging was performed without the administration of intravenous contrast material. Individualized dose optimization techniques were used for this CT. COMPARISON: None. FINDINGS: The lungs are normal. There is no demonstrated pleural abnormality. Normal heart and pericardium. There are calcifications of the coronary arteries. Normal mediastinum. Normal hilar regions. Normal unenhanced pulmonary arteries. There is atherosclerotic calcification of the aortic arch with tortuosity and elongation of the aortic arch and descending thoracic aorta. Normal osseous structures. There is a large hiatal hernia. There has been a cholecystectomy. There is a 3 cm cyst in the LEFT kidney. CT/Chest without Contrast IMPRESSION: There is NO acute traumatic injury. Electronically Signed: Thaddeus Rebollar MD at 1:47 EDT , Service support ,
--- NOTE | 2018-08-12 00:28 | ED.DCSUM_ITS ---
- ER Visit Summary Date of Service: 08/12/18 Chief Complaint: Fall History of Present Illness: The patient is a 73 M who states that 4 days ago he started to stumble in the grass and he rolled falling on his right side. He is able to get himself up. He notes continued pain in the right posterior back that is worse with movement and with deep breath. While his chief complaint was shortness of breath he states while he is at rest he is not short of breath it is more when he goes to exert himself because he cannot take a deep breath he cannot catch his breath. He notes a epigastric cramping pain that is worse with food he notes some increase in gas. He has a history of hiatal hernia. He is been taking his tramadol that he takes for arthritis but has not been taking anti-inflammatories. He denies any other injuries from the fall. Physical Examination: Afebrile vital signs are stable Gen: Well-nourished well-developed Head: Normocephalic atraumatic Eyes: Perrl EOMI ENT: TMs clear no rhinorrhea moist mucous membranes Neck: Supple no lymphadenopathy no JVD nontender CVS: Regular rate rhythm no murmurs normal S1-S2 Respiratory: No distress clear to auscultation bilaterally chest nontender Abdomen: Soft nontender nondistended normal bowel sounds no masses Back: Tender palpation in the lower thoracic right paraspinal musculature near the costovertebral junction. With palpation he states it radiates around the rib to the front. Extremity: Nontender no edema Skin: Normal color no rash Neuro: alert orientated ?3 CN II-XII intact normal strength sensation reflexes gait cerebellar Psych: Normal affect normal mood Test Results: EKG shows a normal sinus rhythm at a rate of 79. Chest CT shows no obvious fracture pneumothorax hemothorax pulmonary contusion or pneumonia. Basic labs are negative. Emergency Department Course and Treatment: Patient received a dose of morphine and Zofran. Spoke with the patient and his son. At this point they are going to stay with Ultram. They will add in Tylenol. He is not supposed to take anti-inflammatories per his mgmt analyst and I would agree with this especially in light of his hiatal hernia and his probable GERD-like symptoms. Patient is comfortable with outpatient follow-up return if worsening or concerns Impression: 1. Right posterior rib contusion This note was generated with Khalif dictation software. It may contain incorrect words, spelling, and punctuation that were not noted in review of the chart prior to signing ED Disposition - Plan for ED Patient: Disposition: Home or Assisted Living Instructions: ED Contusion Rib Referrals: Simon Willams MD [Primary Care Provider] - 1 Week if not improving
[2018-08-12] MEDS: Ondansetron 4 MG/2 ML Vial IV (00:37)
[2018-08-12] MEDS: Morphine 2 MG/ML Syringe IV (00:37)
[2018-08-12 01:00] LABS: Absolute Lymphocyte Count 1.19 X10^3/ul (0.83-4.51); Absolute Neutrophil Count 5.2 X10^3/uL (2.0-7.7); Basophil# 0.02 X10^3/uL; Basophil% 0.3 % (0-1); Eosinophil# 0.17 X10^3/uL; Eosinophils% 2.3 % (0-5); Hematocrit 38.4 % (40-54); Lymphocyte # 1.19 X10^3/ul (4.0); Lymphocyte % 16.3 % (19-41); Mean Corp Hgb Conc 33.9 g/gl (32-36); Mean Corpuscular Hgb 35.1 pg (27.0-32.0); Mean Corpuscular Volume 103.8 fL (80-94); Mean Platelet Vol. 9.4 fl (6.2-12.0); Monocyte# 0.75 X10^3/uL; Monocyte% 10.3 % (0-10); Neutrophil # 5.15 X10^3/uL (2.7-7.7); Neutrophil % 70.7 % (47-70); Platelet Count 152 K/mm3 (150-450); RBC Distribution Width SD 52.3 fl (35.1-43.9); White Blood Count 7.3 K/mm3 (4.4-11.0)
[2018-08-12 01:01] LABS: POSITIVE COUNT NO; POSITIVE DIFFERENTIAL NO; POSITIVE MORPHOLOGY NO
[2018-08-12 01:12] LABS: Anion Gap 4 (5-15); BUN 24 mg/dL (7-18); BUN/Creat Ratio 17.8 RATIO (10-20); Calcium,Total 8.5 mg/dL (8.5-10.1); Chloride 108 mmol/L (98-107); Creatinine, Serum 1.35 mg/dL (0.70-1.30); EST Glomerular Filtration Rate 55 mL/min (>60); Est Glom Filt Rate - Afr Amer 66 mL/min (>60); Estimated Creatinine Clearance 47.28 ml/min; Glucose 127 mg/dL (74-106); Sodium Level 139 mmol/L (136-145)
[2018-08-12 01:30] VITALS: BP 143/84; PULSE 80; RESP 15; O2SAT 95
== END 2018-08-12 02:21 | disposition home or self-care (01) ==
PROVIDERS: Emergency Provider Emergency Medicine; Family Provider Family Medicine; PCP Family Medicine
DX: S20.221A Contusion of right back wall of thorax, initial encounter (principal); W01.0XXA Fall on same level from slipping, tripping and stumbling without subsequent striking against object, initial encounter; Y93.9 Activity, unspecified; Y92.9 Unspecified place or not applicable; I25.10 Atherosclerotic heart disease of native coronary artery without angina pectoris; I10 Essential (primary) hypertension; E11.9 Type 2 diabetes mellitus without complications; K21.9 Gastro-esophageal reflux disease without esophagitis; N40.0 Benign prostatic hyperplasia without lower urinary tract symptoms; M06.9 Rheumatoid arthritis, unspecified; Z79.82 Long term (current) use of aspirin; Z79.899 Other long term (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
CPT/HCPCS: 71250; 80048; 84484; 85025; 93005; 96374; 96375; 99284; A4216; J2405

== ENCOUNTER → 2018-09-01 09:22 | Outpatient (CLI) | payer MEDICARE, SELFPAY ==
[2018-08-24 15:10] VITALS: BMI 31.6
[2018-09-01 12:17] LABS: Absolute Lymphocyte Count 1.26 X10^3/ul (0.83-4.51); Absolute Neutrophil Count 4.6 X10^3/uL (2.0-7.7); Basophil# 0.02 X10^3/uL; Basophil% 0.3 % (0-1); Eosinophil# 0.17 X10^3/uL; Eosinophils% 2.6 % (0-5); Hematocrit 41.8 % (40-54); Hemoglobin 13.6 g/dl (13.0-16.5); Lymphocyte # 1.26 X10^3/ul (4.0); Lymphocyte % 19.2 % (19-41); Mean Corp Hgb Conc 32.5 g/gl (32-36); Mean Corpuscular Hgb 34.1 pg (27.0-32.0); Mean Corpuscular Volume 104.8 fL (80-94); Mean Platelet Vol. 9.6 fl (6.2-12.0); Monocyte% 7.6 % (0-10); Neutrophil # 4.58 X10^3/uL (2.7-7.7); Platelet Count 207 K/mm3 (150-450); RBC Distribution Width CV 14.2 % (11.6-14.6); RBC Distribution Width SD 54.1 fl (35.1-43.9); Red Blood Count 3.99 M/mm3 (4.6-6.2); White Blood Count 6.6 K/mm3 (4.4-11.0)
[2018-09-01 12:22] LABS: POSITIVE COUNT NO; POSITIVE DIFFERENTIAL NO; POSITIVE MORPHOLOGY NO
[2018-09-01 12:34] LABS: ALB/GLOB Ratio 1.2 RATIO (0.9-2.4); AST(SGOT) 20 U/L (15-37); Alanine Aminotransfer ALT/SGPT 30 U/L (16-61); Albumin, Serum 3.7 g/dL (3.2-5.0); Alkaline Phosphatase 123 U/L (45-117); Anion Gap 6 (5-15); BUN 18 mg/dL (7-18); BUN/Creat Ratio 16.2 RATIO (10-20); Calcium,Total 8.7 mg/dL (8.5-10.1); Chloride 110 mmol/L (98-107); Creatinine, Serum 1.11 mg/dL (0.70-1.30); EST Glomerular Filtration Rate 69 mL/min (>60); Est Glom Filt Rate - Afr Amer 83 mL/min (>60); Globulin 3.1 g/dL (2.2-4.2); Glucose 95 mg/dL (74-106); Potassium 4.2 mmol/L (3.5-5.1); Protein, Total 6.8 g/dL (6.4-8.2); Sodium Level 141 mmol/L (136-145)
== END ==
PROVIDERS: Family Provider Family Medicine; PCP Family Medicine; Referring Provider Internal Medicine Rheumatology; Visit Provider Nurse Practitioner Family
DX: M46.90 Unspecified inflammatory spondylopathy, site unspecified (principal); M17.0 Bilateral primary osteoarthritis of knee; M75.40 Impingement syndrome of unspecified shoulder; M19.072 Primary osteoarthritis, left ankle and foot; M51.37 Other intervertebral disc degeneration, lumbosacral region; I10 Essential (primary) hypertension; N20.0 Calculus of kidney; I70.90 Unspecified atherosclerosis; G47.33 Obstructive sleep apnea (adult) (pediatric); I87.2 Venous insufficiency (chronic) (peripheral); Z79.899 Other long term (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; Z86.711 Personal history of pulmonary embolism; I25.10 Atherosclerotic heart disease of native coronary artery without angina pectoris; Z95.5 Presence of coronary angioplasty implant and graft; E78.5 Hyperlipidemia, unspecified; M79.89 Other specified soft tissue disorders
CPT/HCPCS: 36415; 80053; 85025

== ENCOUNTER → 2018-12-04 17:09 | Outpatient (CLI) | payer MEDICARE, SELFPAY ==
[2018-08-24 15:10] VITALS: BMI 31.6
[2018-12-04 17:26] LABS: Absolute Lymphocyte Count 1.12 X10^3/uL (0.83-4.51); Absolute Neutrophil Count 4.1 X10^3/uL (2.0-7.7); Basophil# 0.03 X10^3/uL; Basophil% 0.5 % (0-1); Eosinophil# 0.15 X10^3/uL; Eosinophils% 2.5 % (0-5); Hematocrit 40.4 % (40-54); Hemoglobin 13.2 g/dL (13.0-16.5); Lymphocyte # 1.12 X10^3/ul (4.0); Lymphocyte % 18.5 % (19-41); Mean Corp Hgb Conc 32.7 g/dL (32-36); Mean Corpuscular Hgb 34.4 pg (27.0-32.0); Mean Corpuscular Volume 105.2 fL (80-94); Mean Platelet Vol. 9.6 fl (6.2-12.0); Monocyte# 0.67 X10^3/uL; Monocyte% 11.1 % (0-10); NRBC Flagged by Analyzer 0 % (0-5); Neutrophil # 4.06 X10^3/uL (2.7-7.7); Neutrophil % 67.1 % (47-70); Platelet Count 156 K/mm3 (150-450); RBC Distribution Width CV 13.8 % (11.6-14.6); RBC Distribution Width SD 53.2 fl (35.1-43.9); Red Blood Count 3.84 M/mm3 (4.6-6.2); White Blood Count 6.1 K/mm3 (4.4-11.0)
[2018-12-04 17:38] LABS: ALB/GLOB Ratio 1.1 RATIO (0.9-2.4); AST(SGOT) 22 U/L (15-37); Alanine Aminotransfer ALT/SGPT 33 U/L (16-61); Albumin, Serum 3.6 g/dL (3.2-5.0); Alkaline Phosphatase 115 U/L (45-117); Anion Gap 7 (5-15); BUN 21 mg/dL (7-18); BUN/Creat Ratio 15.1 RATIO (10-20); Calcium,Total 8.5 mg/dL (8.5-10.1); Chloride 112 mmol/L (98-107); Creatinine, Serum 1.39 mg/dL (0.70-1.30); EST Glomerular Filtration Rate 53 mL/min (>60); Est Glom Filt Rate - Afr Amer 64 mL/min (>60); Globulin 3.2 g/dL (2.2-4.2); Glucose 144 mg/dL (74-106); Potassium 4.2 mmol/L (3.5-5.1); Protein, Total 6.8 g/dL (6.4-8.2); Sodium Level 141 mmol/L (136-145)
== END ==
PROVIDERS: Family Provider Family Medicine; PCP Family Medicine; Referring Provider Internal Medicine Rheumatology; Visit Provider Internal Medicine Rheumatology
DX: M46.90 Unspecified inflammatory spondylopathy, site unspecified (principal); M17.0 Bilateral primary osteoarthritis of knee; M75.40 Impingement syndrome of unspecified shoulder; M19.072 Primary osteoarthritis, left ankle and foot; M51.37 Other intervertebral disc degeneration, lumbosacral region; I10 Essential (primary) hypertension; N20.0 Calculus of kidney; I70.90 Unspecified atherosclerosis; Z86.711 Personal history of pulmonary embolism; G47.33 Obstructive sleep apnea (adult) (pediatric); I87.2 Venous insufficiency (chronic) (peripheral); E03.9 Hypothyroidism, unspecified; Z79.899 Other long term (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
CPT/HCPCS: 36415; 80053; 85025

== ENCOUNTER → 2018-12-19 16:39 | Outpatient (CLI) | payer MEDICARE, SELFPAY ==
[2018-08-24 15:10] VITALS: BMI 31.6
== END ==
PROVIDERS: Family Provider Family Medicine; PCP Family Medicine; Visit Provider Family Medicine
DX: N41.0 Acute prostatitis (principal); R30.0 Dysuria
CPT/HCPCS: 87086

== ENCOUNTER → 2019-02-26 16:41 | Outpatient (CLI) | payer MEDICARE, SELFPAY ==
[2018-08-24 15:10] VITALS: BMI 31.6
[2019-02-26 17:23] LABS: Absolute Lymphocyte Count 1.09 X10^3/uL (0.83-4.51); Absolute Neutrophil Count 5.7 X10^3/uL (2.0-7.7); Basophil# 0.04 X10^3/uL; Basophil% 0.5 % (0-1); Eosinophil# 0.08 X10^3/uL; Hematocrit 42.3 % (40-54); Hemoglobin 14.2 g/dL (13.0-16.5); Lymphocyte # 1.09 X10^3/ul (4.0); Lymphocyte % 14.2 % (19-41); Mean Corp Hgb Conc 33.6 g/dL (32-36); Mean Corpuscular Hgb 35.1 pg (27.0-32.0); Mean Corpuscular Volume 104.7 fL (80-94); Mean Platelet Vol. 9.8 fl (6.2-12.0); Monocyte# 0.78 X10^3/uL; Monocyte% 10.1 % (0-10); NRBC Flagged by Analyzer 0 % (0-5); Neutrophil # 5.68 X10^3/uL (2.7-7.7); Neutrophil % 73.8 % (47-70); Platelet Count 192 K/mm3 (150-450); RBC Distribution Width CV 13.7 % (11.6-14.6); RBC Distribution Width SD 52.9 fl (35.1-43.9); Red Blood Count 4.04 M/mm3 (4.6-6.2); White Blood Count 7.7 K/mm3 (4.4-11.0)
[2019-02-26 17:39] LABS: ALB/GLOB Ratio 1.2 RATIO (0.9-2.4); AST(SGOT) 18 U/L (15-37); Alanine Aminotransfer ALT/SGPT 25 U/L (16-61); Albumin, Serum 3.8 g/dL (3.2-5.0); Alkaline Phosphatase 96 U/L (45-117); Anion Gap 5 (5-15); BUN 16 mg/dL (7-18); BUN/Creat Ratio 12.3 RATIO (10-20); Calcium,Total 8.6 mg/dL (8.5-10.1); Chloride 113 mmol/L (98-107); EST Glomerular Filtration Rate 57 mL/min (>60); Est Glom Filt Rate - Afr Amer 69 mL/min (>60); Globulin 3.2 g/dL (2.2-4.2); Glucose 126 mg/dL (74-106); Potassium 3.8 mmol/L (3.5-5.1); Sodium Level 142 mmol/L (136-145)
== END ==
PROVIDERS: Family Provider Family Medicine; PCP Family Medicine; Visit Provider Internal Medicine Rheumatology
DX: M46.90 Unspecified inflammatory spondylopathy, site unspecified (principal); M17.0 Bilateral primary osteoarthritis of knee; M75.40 Impingement syndrome of unspecified shoulder; M19.072 Primary osteoarthritis, left ankle and foot; M51.37 Other intervertebral disc degeneration, lumbosacral region; Z79.899 Other long term (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
CPT/HCPCS: 36415; 80053; 85025

== ENCOUNTER → 2019-05-18 16:33 | Outpatient (CLI) | payer MEDICARE, SELFPAY ==
[2018-08-24 15:10] VITALS: BMI 31.6
[2019-05-18 17:45] LABS: Absolute Lymphocyte Count 1.14 X10^3/uL (0.83-4.51); Absolute Neutrophil Count 5.8 X10^3/uL (2.0-7.7); Basophil# 0.06 X10^3/uL; Basophil% 0.7 % (0-1); Eosinophil# 0.26 X10^3/uL; Eosinophils% 3.2 % (0-5); Hematocrit 42.9 % (40-54); Hemoglobin 14.2 g/dL (13.0-16.5); Lymphocyte # 1.14 X10^3/ul (4.0); Lymphocyte % 13.9 % (19-41); Mean Corp Hgb Conc 33.1 g/dL (32-36); Mean Corpuscular Volume 102.6 fL (80-94); Mean Platelet Vol. 9.4 fl (6.2-12.0); Monocyte# 0.95 X10^3/uL; Monocyte% 11.6 % (0-10); NRBC Flagged by Analyzer 0 % (0-5); Neutrophil # 5.77 X10^3/uL (2.7-7.7); Neutrophil % 70.2 % (47-70); Platelet Count 220 K/mm3 (150-450); RBC Distribution Width CV 13.8 % (11.6-14.6); RBC Distribution Width SD 52.1 fl (35.1-43.9); Red Blood Count 4.18 M/mm3 (4.6-6.2); White Blood Count 8.2 K/mm3 (4.4-11.0)
[2019-05-18 18:00] LABS: ALB/GLOB Ratio 1.1 RATIO (0.9-2.4); AST(SGOT) 23 U/L (15-37); Alanine Aminotransfer ALT/SGPT 28 U/L (16-61); Albumin, Serum 3.8 g/dL (3.2-5.0); Alkaline Phosphatase 110 U/L (45-117); Anion Gap 7 (5-15); BUN 20 mg/dL (7-18); BUN/Creat Ratio 15.7 RATIO (10-20); Calcium,Total 8.7 mg/dL (8.5-10.1); Chloride 110 mmol/L (98-107); Creatinine, Serum 1.27 mg/dL (0.70-1.30); EST Glomerular Filtration Rate 59 mL/min (>60); Est Glom Filt Rate - Afr Amer 71 mL/min (>60); Globulin 3.5 g/dL (2.2-4.2); Glucose 86 mg/dL (74-106); Potassium 4.2 mmol/L (3.5-5.1); Protein, Total 7.3 g/dL (6.4-8.2); Sodium Level 141 mmol/L (136-145)
== END ==
PROVIDERS: PCP Family Medicine; Referring Provider Internal Medicine Rheumatology; Visit Provider Internal Medicine Rheumatology
DX: M46.90 Unspecified inflammatory spondylopathy, site unspecified (principal); M17.0 Bilateral primary osteoarthritis of knee; M19.072 Primary osteoarthritis, left ankle and foot; M51.37 Other intervertebral disc degeneration, lumbosacral region; I10 Essential (primary) hypertension; N20.0 Calculus of kidney; I70.90 Unspecified atherosclerosis; Z79.899 Other long term (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
CPT/HCPCS: 36415; 80053; 85025

== ENCOUNTER 2019-06-01 09:30 | Outpatient (RCR) | payer MEDICARE, SELFPAY ==
[2018-08-24 15:10] VITALS: BMI 31.6
--- NOTE | 2019-04-30 15:01 | HP.PTEVAL_ITS ---
Patient's Visit Information IMAN ANDREA is a 73 year old M referred to Physical Therapy by ROSALINA DE LA TORRE with a diagnosis of abnormality of gait. Date of Evaluation: 04/30/19 Physical Therapist: HERMAN Cobos - Visit Plan Frequency: 2-3x /Week Duration: 2 Months Plan: 2-3X/ week for 4-6 weeks for gait training, balance activities with EO/EC and compliant surfaces when ready, LE strengthening, COre stability, ankle strength with HEP - Subjective Findings: Pt reports that he can not walk very far. He reports that he has been on the cane for 2 years now. He can get around without the cane but he feels safer with the cane. He reports that he fell this past summer out in the yard tripping over his own slippers. He was able to get back up. He has noticed that the last 3-4 years when walking with his , who is , that he would veer off line. Notices that he will be off balance if he gets out of the chair too fast. He likes to golf but he is now too unsteady. He feels that his R sided trunk muscles are tighter than the L. He knows that he leans to the L when he walks which started after back surgery. He had chronic sciatica and had to have back surgery.... laminectomy and fusion of L4-L5 Mar 2017. He has stairs to the basement with a railing....He goes 2 feet to a stair... His R leg does not want to hold him. He gets pain when he goes up with his R foot.... He has been having some back pain when he goes to bend fw and catches recently and only happens occ. he reports that his legs do not feel very strong. He reports that he has to push off of something to get up off the floor. Pt has some sleep deprivation right now but working with [employer] - Objective Gait: walks with WBOS, trunk shift to the L, everted B feet, with a straight cane,. Standing posture: trunk shift to the Left, valgus at the knees. LE MMT:R hip flex 4-/5 and L 4/5, B knee ext 4+/5, B knee flex 4+/5, R hip abd 3-/5 and L hip abd 3+/5, able to do 3/5 normal ROM bridge. ABle to PF B in standing and able to raise L foot into DF but not able to DF the R in standing. FGA: 9. Able to sit to stand from a chair without using his UE's but once standing I balance is an issue. - Balance Scores Functional Gait Assessment Score: 9 % Disability: 70.0000 - Goals Goal 1:: I HEP Goal Time Frame: 4-6 Weeks Goal 2:: Increase LE strength by 1/2 muscle grade ( at time of eval: LE MMT:R hip flex 4-/5 and L 4/5, B knee ext 4+/5, B knee flex 4+/5, R hip abd 3-/5 and L hip abd 3+/5, able to do 3/5 normal ROM bridge. ABle to PF B in standing and able to raise L foot into DF but not able to DF the R in standing). Goal Time Frame: 4-6 Weeks Goal 3:: Increase FGA by 5 points ( score of 9 at time of eval) to decrease fall risk Goal Time Frame: 4-6 Weeks Goal 4:: Be able to walk with his walker with increase confidence with a straight cane with smaller DEWAYNE Goal Time Frame: 4-6 Weeks - Rehabilitation Potential Rehabilitation Potential: Good - Anticipated Interventions Patient/Client Instruction: Educate patient on: Condition, Plan of Care For the Purpose of:: To improve muscle performance and motor function, To improve ability to perform ADL's, To increase tolerance to activit y/condition/position, To improve performance and independence with ADL's, To decrease level of supervision to perform tasks, To improve ability of physical actions for home/community/work/leisure, To improve gait and locomotor functions, To improve health of tissue, To increase flexibility/ROM, To improve balance, To improve safety with gait Therapeutic Exercise to Include: Strength training, Balance training, Body mechanics, Postural training, Flexibilty training, Gait and locomotor training, Passive ROM, Active ROM, Dynamic Lumbar Stabilization For the Purpose of:: To improve muscle performance and motor function, To improve ability to perform ADL's, To increase tolerance to activity/condition/position, To improve performance and independence with ADL's, To decrease level of supervision to perform tasks, To improve ability of physical actions for home/community/work/leisure, To improve gait and locomotor functions, To improve health of tissue, To increase flexibility/ROM, To improve balance, To improve safety with gait Functional Training to Include: Gait training For the Purpose of:: To improve gait and locomotor functions, To improve safety with gait Thank you for the opportunity to evaluate your patient. For Medicare and Medicare HMO plans, please review the plan of care and approve it. It will need to be FAXED BACK to us at [phone] for Medicare purposes. For Medicare only, by signing this I certify the plan of care. Please let me know if there are questions or concerns regarding this plan of care. Physician Signature: Date:
--- NOTE | 2019-05-21 16:33 | HP.PTREVAL ---
ROSALINA DE LA TORRE, It has been my pleasure to treat IMAN ANDREA over the last 9 visits for abnormality of gait. Please see the progress note below for an update on the physical therapy plan of care! Subjective: Pt reports that he is walking better. He is standin up straighter. Objective/Function: Standing stick wall flexion increased SOB and pt had to rest. LE MMT:R hip flex 4/5 and L 4/5, B knee ext 4+/5, B knee flex 4+/5, R hip abd 3+/5 and L hip abd 3+/5, able to do 3/5 normal ROM bridge. FGA 10 Plan Plan: Continue to increase balance and walking with a cane if needed as well as continue with core strength. Goals Goal 1:: I HEP Goal Time Frame: 4-6 Weeks Goal Progress: Goal Met Goal 2:: Increase LE strength by 1/2 muscle grade ( at time of eval: LE MMT:R hip flex 4-/5 and L 4/5, B knee ext 4+/5, B knee flex 4+/5, R hip abd 3-/5 and L hip abd 3+/5, able to do 3/5 normal ROM bridge. ABle to PF B in standing and able to raise L foot into DF but not able to DF the R in standing). Goal Time Frame: 4-6 Weeks Goal Progress: Progressing Goal 3:: Increase FGA by 5 points ( score of 9 at time of eval) to decrease fall risk Goal Time Frame: 4-6 Weeks Goal Progress: Progressing Goal 4:: Be able to walk with his walker with increase confidence with a straight cane with smaller DEWAYNE Goal Time Frame: 4-6 Weeks Goal Progress: Progressing Anticipated Interventions Patient/Client Instruction: Educate patient on: Condition, Plan of Care For the Purpose of:: To improve muscle performance and motor function, To improve ability to perform ADL's, To increase tolerance to activity/condition/position, To improve performance and independence with ADL's, To decrease level of supervision to perform tasks, To improve ability of physical actions for home/community/work/leisure, To improve gait and locomotor functions, To improve health of tissue, To increase flexibility/ROM, To improve balance, To improve safety with gait Therapeutic Exercise to Include: Strength training, Balance training, Body mechanics, Postural training, Flexibilty training, Gait and locomotor training, Passive ROM, Active ROM, Dynamic Lumbar Stabilization For the Purpose of:: To improve muscle performance and motor function, To improve ability to perform ADL's, To increase tolerance to activity/condition/position, To improve performance and independence with ADL's, To decrease level of supervision to perform tasks, To improve ability of physical actions for home/community/work/leisure, To improve gait and locomotor functions, To improve health of tissue, To increase flexibility/ROM, To improve balance, To improve safety with gait Functional Training to Include: Gait training For the Purpose of:: To improve gait and locomotor functions, To improve safety with gait Please do not hesitate to contact me at [phone] by phone or if you have questions or concerns regarding this new plan of care! Sincerely, Karen Bernard, MPT
[2019-06-01 12:54] LABS: AST(SGOT) 26 U/L (15-37); Alanine Aminotransfer ALT/SGPT 31 U/L (16-61); Albumin, Serum 3.8 g/dL (3.2-5.0); Alkaline Phosphatase 112 U/L (45-117); Bilirubin, Direct 0.13 mg/dL (0.00-0.30); Cholesterol 127 mg/dL (200); Globulin 3.5 g/dL (2.2-4.2); High Density Lipoprotein 48 mg/dL; Protein, Total 7.3 g/dL (6.4-8.2); Triglycerides 60 mg/dL; Very Low Density Lipoprotein 12 mg/dL (5-40)
--- NOTE | 2019-08-10 13:22 | HP.PT.NRP ---
IMAN ANDREA was seen in my office for initial evaluation on 04/30/19. The following Plan of Care was established for this patient: Initial Frequency: 2-3x /Week Initial Duration: 2 Months Patient/Client Instruction: Educate patient on: Condition, Plan of Care For the Purpose of:: To improve muscle performance and motor function, To improve ability to perform ADL's, To increase tolerance to activity/condition/position, To improve performance and independence with ADL's, To decrease level of supervision to perform tasks, To improve ability of physical actions for home/community/work/leisure, To improve gait and locomotor functions, To improve health of tissue, To increase flexibility/ROM, To improve balance, To improve safety with gait Therapeutic Exercise to Include: Strength training, Balance training, Body mechanics, Postural training, Flexibilty training, Gait and locomotor training, Passive ROM, Active ROM, Dynamic Lumbar Stabilization For the Purpose of:: To improve muscle performance and motor function, To improve ability to perform ADL's, To increase tolerance to activity/condition/position, To improve performance and independence with ADL's, To decrease level of supervision to perform tasks, To improve ability of physical actions for home/community/work/leisure, To improve gait and locomotor functions, To improve health of tissue, To increase flexibility/ROM, To improve balance, To improve safety with gait Functional Training to Include: Gait training For the Purpose of:: To improve gait and locomotor functions, To improve safety with gait This patient was last seen in our office 06/01/19. Pertinent comments regarding their Physical therapy will appear below: DC PT as pt will be having surgery on his back at the end of August. At this point I will be discontinuing this patient from physical therapy. I would be happy to see this patient again in the future if found appropriate by the physician. Thank you! Karen Bernard, MPT
== END 2019-06-01 19:00 | disposition home or self-care (01) ==
LOC: PT 09:30
PROVIDERS: Internal Medicine Cardiovascular Disease; PCP Family Medicine
DX: R26.9 Unspecified abnormalities of gait and mobility (principal); E78.00 Pure hypercholesterolemia, unspecified
CPT/HCPCS: 36415; 80061; 80076; 97110; 97162; 97164

== ENCOUNTER → 2019-07-26 11:52 | Outpatient (CLI) | payer MEDICARE, SELFPAY ==
[2019-05-25 16:09] VITALS: BMI 31.1
[2019-07-26 15:31] LABS: Creatinine, Serum 1.34 mg/dL (0.70-1.30); EST Glomerular Filtration Rate 55 mL/min (>60); Est Glom Filt Rate - Afr Amer 67 mL/min (>60)
== END ==
PROVIDERS: PCP Family Medicine; Referring Provider Orthopaedic Surgery Orthopaedic Surgery of the Spine; Visit Provider Orthopaedic Surgery Orthopaedic Surgery of the Spine
DX: M48.02 Spinal stenosis, cervical region (principal); M43.12 Spondylolisthesis, cervical region
CPT/HCPCS: 36415; 82565

== ENCOUNTER → 2019-08-01 12:36 | Outpatient (CLI) | payer MEDICARE, SELFPAY ==
[2019-05-25 16:09] VITALS: BMI 31.1
--- NOTE | 2019-08-01 12:42 | MRI_ITS ---
STUDY: MRI CERVICAL SPINE WITHOUT CONTRAST REASON FOR EXAM: Male, 74 years old. myelopathy -- scoliosis, prev lumbar surgery -- pain low back and rt leg, chronic bilat extremity weakness, no neck pain, trouble walking TECHNIQUE: Standardized fat and water weighted pulse sequences were obtained in the sagittal and axial planes. COMPARISON: None FINDINGS: Normal foramen magnum and brainstem-cervical cord junction. Normal craniovertebral junction. Normal anterior atlantoaxial articulation. Normal odontoid process. There is straightening of the normal cervical lordosis. Normal vertebral bodies and posterior osseous elements. C2-3: Normal endplates. Normal disc height, signal and morphology. Normal central canal and intervertebral neural foramina. C3-4: 2 mm of anterolisthesis of C3 on C4 with a mild broad disc osteophyte complex produces moderate spinal stenosis with abutment of the central spinal cord and moderate bilateral neural foraminal stenosis. C4-5: 2 mm of anterolisthesis of C4 on C5 with a mild broad disc osteophyte complex produces moderate spinal stenosis with abutment of the central spinal cord and moderate bilateral neural foraminal stenosis. C5-6: Mild broad disc osteophyte complex produces mild spinal stenosis and mild bilateral neural foraminal stenosis. C6-7: Mild bilobed disc osteophyte complex produces mild spinal stenosis and mild bilateral neural foraminal stenosis. C7-T1: Normal endplates. Normal disc height, signal and morphology. Normal central canal and intervertebral neural foramina. Normal cervical cord. Normal visualized soft tissue structures. MRI/Spine Cervical (Routine) IMPRESSION: Multilevel degenerative changes, as described above. Electronically Signed: Wallace Rivera MD at 15:46 EDT Tel , Service support ,
--- NOTE | 2019-08-01 12:42 | MRI_ITS ---
STUDY: MRI LUMBAR SPINE WITH AND WITHOUT CONTRAST REASON FOR EXAM: Male, 74 years old. scoliosis, prev lumbar surgery -- pain low back and rt leg, chronic bilat extremity weakness, no neck pain, trouble walking TECHNIQUE: Standardized fat and water weighted pulse sequences were obtained in the sagittal and axial planes. IV dotarem 19ml was administered for the contrast portion of the examination. COMPARISON: 07/14/2016 FINDINGS: T12-L1: Normal endplates. Normal disc height, hydration and morphology. Normal bilateral facet joints. Normal central canal and bilateral lateral recesses. Normal bilateral intervertebral neural foramina. Normal lumbar lordosis. Moderate dextroscoliosis centered at L3. Normal conus medullaris that terminates at the T12/L1. L1-2: Disc desiccation but no disc protrusion, spinal stenosis, or neural foraminal stenosis. L2-3: Mild bilateral facet hypertrophy with fluid in the facet joints consistent with instability and mild ligament flavum hypertrophy. No change in the 2 mm retrolisthesis of L2 on L3 with a moderate bilobed disc protrusion with Modic type I endplate changes which produces moderate spinal stenosis and moderate bilateral lateral recess stenosis with abutment of the L3 nerve roots bilaterally and moderate bilateral neural foraminal stenosis with abutment of the L2 nerve roots bilaterally. L3-4: Mild bilateral facet hypertrophy and moderate ligament flavum hypertrophy. No change in the moderate broad disc protrusion which produces moderate spinal stenosis and mild bilateral neural foraminal stenosis. Extensive Modic type I endplate changes. L4-5: Interval posterior decompression and transpedicular fixation with anatomic alignment and no spinal stenosis or neural foraminal stenosis. L5-S1: No change in the mild broad disc protrusion which produces mild spinal stenosis and mild bilateral neural foraminal stenosis. Normal visualized sacral ala. Normal visualized paraspinous soft tissue structures. There is no demonstrated abnormal enhancement. MRI/Spine Lumbar W/WO Contrast IMPRESSION: Interval posterior decompression and transpedicular fixation at L4/L5 with anatomic alignment. Dextroscoliosis and degenerative disc disease similar to the prior study but with interval development of significant Modic type I endplate changes particularly at L3/L4. Electronically Signed: Wallace Rivera MD at 15:57 EDT Tel , Service support ,
== END ==
PROVIDERS: PCP Family Medicine; Referring Provider Orthopaedic Surgery Orthopaedic Surgery of the Spine; Visit Provider Orthopaedic Surgery Orthopaedic Surgery of the Spine
DX: G95.9 Disease of spinal cord, unspecified (principal)
CPT/HCPCS: 72141; 72158; A9575

== ENCOUNTER → 2019-08-17 16:13 | Outpatient (CLI) | payer MEDICARE, SELFPAY ==
[2019-05-25 16:09] VITALS: BMI 31.1
[2019-08-17 17:49] LABS: Absolute Lymphocyte Count 1.66 X10^3/uL (0.83-4.51); Absolute Neutrophil Count 4.8 X10^3/uL (2.0-7.7); Basophil# 0.03 X10^3/uL; Basophil% 0.4 % (0-1); Eosinophil# 0.14 X10^3/uL; Eosinophils% 1.9 % (0-5); Hemoglobin 13.9 g/dL (13.0-16.5); Lymphocyte # 1.66 X10^3/ul (4.0); Lymphocyte % 23.1 % (19-41); Mean Corp Hgb Conc 32.3 g/dL (32-36); Mean Corpuscular Hgb 34.8 pg (27.0-32.0); Mean Corpuscular Volume 107.8 fL (80-94); Mean Platelet Vol. 9.6 fl (6.2-12.0); Monocyte# 0.55 X10^3/uL; Monocyte% 7.6 % (0-10); NRBC Flagged by Analyzer 0 % (0-5); Neutrophil % 66.7 % (47-70); Platelet Count 214 K/mm3 (150-450); RBC Distribution Width CV 14.1 % (11.6-14.6); RBC Distribution Width SD 55.5 fl (35.1-43.9); Red Blood Count 3.99 M/mm3 (4.6-6.2); White Blood Count 7.2 K/mm3 (4.4-11.0)
[2019-08-17 18:11] LABS: AST(SGOT) 32 U/L (15-37); Alanine Aminotransfer ALT/SGPT 48 U/L (16-61); Albumin, Serum 3.6 g/dL (3.2-5.0); Alkaline Phosphatase 113 U/L (45-117); Anion Gap 5 (5-15); BUN 20 mg/dL (7-18); BUN/Creat Ratio 15.6 RATIO (10-20); Calcium,Total 8.4 mg/dL (8.5-10.1); Chloride 108 mmol/L (98-107); Creatinine, Serum 1.28 mg/dL (0.70-1.30); EST Glomerular Filtration Rate 58 mL/min (>60); Est Glom Filt Rate - Afr Amer 70 mL/min (>60); Globulin 3.5 g/dL (2.2-4.2); Glucose 113 mg/dL (74-106); Potassium 4.4 mmol/L (3.5-5.1); Protein, Total 7.1 g/dL (6.4-8.2); Sodium Level 140 mmol/L (136-145)
== END ==
PROVIDERS: PCP Family Medicine; Referring Provider Internal Medicine Rheumatology; Visit Provider Internal Medicine Rheumatology
DX: M46.90 Unspecified inflammatory spondylopathy, site unspecified (principal); Z79.899 Other long term (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; M17.0 Bilateral primary osteoarthritis of knee; M75.40 Impingement syndrome of unspecified shoulder; M19.072 Primary osteoarthritis, left ankle and foot; M51.37 Other intervertebral disc degeneration, lumbosacral region; I10 Essential (primary) hypertension; N20.0 Calculus of kidney; I70.90 Unspecified atherosclerosis; Z86.711 Personal history of pulmonary embolism; G47.33 Obstructive sleep apnea (adult) (pediatric); I87.2 Venous insufficiency (chronic) (peripheral); E03.9 Hypothyroidism, unspecified
CPT/HCPCS: 36415; 80053; 85025

== ENCOUNTER → 2019-12-10 15:55 | Outpatient (CLI) | payer MEDICARE, SELFPAY ==
[2019-09-07 12:06] VITALS: BMI 31.1
[2019-12-10 18:01] LABS: Absolute Lymphocyte Count 1.49 X10^3/uL (0.83-4.51); Absolute Neutrophil Count 3.9 X10^3/uL (2.0-7.7); Basophil# 0.04 X10^3/uL; Basophil% 0.6 % (0-1); Eosinophil# 0.13 X10^3/uL; Eosinophils% 2.1 % (0-5); Hematocrit 40.5 % (40-54); Hemoglobin 13.3 g/dL (13.0-16.5); Lymphocyte # 1.49 X10^3/ul (4.0); Lymphocyte % 23.8 % (19-41); Mean Corp Hgb Conc 32.8 g/dL (32-36); Mean Corpuscular Hgb 34.2 pg (27.0-32.0); Mean Corpuscular Volume 104.1 fL (80-94); Mean Platelet Vol. 9.7 fl (6.2-12.0); Monocyte# 0.72 X10^3/uL; Monocyte% 11.5 % (0-10); NRBC Flagged by Analyzer 0 % (0-5); Neutrophil # 3.86 X10^3/uL (2.7-7.7); Neutrophil % 61.8 % (47-70); Platelet Count 208 K/mm3 (150-450); RBC Distribution Width CV 14.9 % (11.6-14.6); RBC Distribution Width SD 57.1 fl (35.1-43.9); Red Blood Count 3.89 M/mm3 (4.6-6.2); White Blood Count 6.3 K/mm3 (4.4-11.0)
[2019-12-10 18:48] LABS: ALB/GLOB Ratio 1.1 RATIO (0.9-2.4); AST(SGOT) 21 U/L (15-37); Alanine Aminotransfer ALT/SGPT 24 U/L (16-61); Albumin, Serum 3.8 g/dL (3.2-5.0); Alkaline Phosphatase 128 U/L (45-117); Anion Gap 6 (5-15); BUN 18 mg/dL (7-18); BUN/Creat Ratio 12.9 RATIO (10-20); Calcium,Total 8.8 mg/dL (8.5-10.1); Chloride 111 mmol/L (98-107); EST Glomerular Filtration Rate 52 mL/min (>60); Est Glom Filt Rate - Afr Amer 63 mL/min (>60); Globulin 3.4 g/dL (2.2-4.2); Glucose 157 mg/dL (74-106); Potassium 3.7 mmol/L (3.5-5.1); Protein, Total 7.2 g/dL (6.4-8.2); Sodium Level 142 mmol/L (136-145)
== END ==
PROVIDERS: PCP Family Medicine; Referring Provider Internal Medicine Rheumatology; Visit Provider Internal Medicine Rheumatology
DX: M46.90 Unspecified inflammatory spondylopathy, site unspecified (principal); M17.0 Bilateral primary osteoarthritis of knee; M75.40 Impingement syndrome of unspecified shoulder; M19.072 Primary osteoarthritis, left ankle and foot; M51.37 Other intervertebral disc degeneration, lumbosacral region; I10 Essential (primary) hypertension; Z79.899 Other long term (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
CPT/HCPCS: 36415; 80053; 85025

== ENCOUNTER 2019-12-24 15:00 | Outpatient (RCR) | payer MEDICARE, SELFPAY ==
[2019-09-07 12:06] VITALS: BMI 31.1
--- NOTE | 2019-10-08 14:30 | HP.PTEVAL ---
Patient's Visit Information IMAN ANDREA is a 74 year old M referred to Physical Therapy by Dr. Jose Dunn MD with a diagnosis of LUMBAR RADICULOPATHY ,S/P LUMBAR FUSION REGION,SPONSYLOLISTHESIS. Date of Evaluation: 10/08/19 Physical Therapist: Joseph Fisher, PT, Cert MDT, OCS - Visit Plan Frequency: 3x /Week Duration: 2 Weeks Plan: PT INTERVENTIONS LE FLEXABLITY,PRE'S BLE,DLS ABD/BACK ,POSTURA EX'S - Subjective This 74 y/o male presents to physical therapy with lumbar pain. Patient has had lumbar pain many years.Patient had MRI at [facility] of cervical and back. Patient was getting PT during COVID stop PT ,then patient underwent s/p lumbar surgery laminectomy with fusion L2-L5 with plates done September [address] Kahn at [facility].Patient d/c 3 days using FWW and had lumbar brace. Patient had home PT AND [employer]. Patient seen Tuesday recommended PT. Patient conts to have left shift from scoliosis. Patient has lumbar pain with some symptoms left leg. Patient has parathesia/tingling in feet. Patient coughing sneezing -. Bowel/bladder -. Patient has h/o lumbar surgey fusion Mar 2017 . Aggraveting factors walling ,standing ,unable to lift and bending is [place]ak for dressing. Symptoms better with sittig. Pain med Tramadol. Patient also has cervical stenosis. Patient condition affects ADL's and housework tasks. Patient condition affects QOL. SOCAIL: SINGLE. VOCACTION: retired - Pain Bilateral Back Pain Intensity (Out of 10): 6 Pain Intensity Range: 10 - Objective POSTURE: foward posture with left scoliosis. GAIT: ambulates with left scoliosis shft to left reciprocal pattern. PALPATION: tender L-S. NEURO: c/o parathesia/tingling feet ,reflexes L3-4,L4-5.L5-S1. MMT: quads 4-/5,hams 4/5,hip flexion 4-/5,hip abd 4-/5,ankle DF right 3+/5,left 4-/5. LUMBAR ROM: flexion miod loss,extension mod severe loss,side glides to right severe loss,side mod loss to left side. FLEXABILITY: hams mod tight. BALANCE: good-/fair + - Special Tests L/S Slump test left side: Positive L/S Slump test right side: Negative L/S Left Straight Leg Raise: Positive L/S Right Straight Leg Raise: Negative - Goals Goal 1:: Independant with HEP Goal Time Frame: 4-6 Weeks Goal 2:: Independant with posture for ADLS' Goal Time Frame: 2-4 Weeks Goal 3:: Patient decrease lumbar pain and leg symptoms by 50% or > to improve QOL. Goal Time Frame: 2-4 Weeks Goal 4:: Patient to improve QOL of gait with improved posture 60% of time with improved distance Goal Time Frame: 2-4 Weeks Goal 5:: Patient improve lumbar ROM for function of recovery Goal Time Frame: 2-4 Weeks Goal 6:: Patient improve back owestry score by 5 points or > to improve QOL. Goal Time Frame: 2-4 Weeks - Rehabilitation Potential Physical Therapy Diagnosis: This patient underwent s/p lumbar fusion September 10 with impairment with decrease gait ,postural deficits,weakness,decrease lumbar ROM ,and balance dfiicits affects walking and standing for ADL'S Rehabilitation Potential: Good - Anticipated Interventions Patient/Client Instruction: Educate patient on: Condition, Plan of Care For the Purpose of:: To decrease pain, To increase ROM, To improve ability to perform ADL's, To increase tolerance to activity/condition/position, To improve ability of physical actions for home/community/work/leisure, To improve gait and locomotor functions, To decrease soft tissue restriction, To increase flexibility/ROM, To improve endurance, To improve balance, To improve ability to perform tasks related to life management Therapeutic Exercise to Include: Strength training For the Purpose of:: To decrease pain, To improve muscle performance and motor function, To improve ability to perform ADL's, To increase tolerance to activity/condition/position, To improve performance and independence with ADL's, To improve ability of physical actions for home/community/work/leisure, To improve health of tissue, To decrease soft tissue restriction, To increase flexibility/ROM, To improve ability to perform tasks related to life management Thank you for the opportunity to evaluate your patient. For Medicare and Medicare HMO plans, please review the plan of care and approve it. It will need to be FAXED BACK to us at [phone] for Medicare purposes. For Medicare only, by signing this I certify the plan of care. Please let me know if there are questions or concerns regarding this plan of care. Physician Signature: Date:
--- NOTE | 2019-12-13 15:13 | HP.PTREVAL ---
Dr. Jose Dunn MD, It has been my pleasure to treat IMAN ANDREA over the last 19 visits for LUMBAR RADICULOPATHY ,S/P LUMBAR FUSION REGION,SPONSYLOLISTHESIS. Please see the progress note below for an update on the physical therapy plan of care! Subjective: Today back pain but over weekend leg pain Objective/Function: Sacha well progressed well with progression of strengthening but needed walking st Plan Plan: CONT WITH POC 2X/WK FOR 3WKS PT INTERVENTIONS LE FLEXABLITY,PRE'S BLE,DLS ABD/BACK ,POSTURAL EX'S Goals Goal 1:: Independant with HEP Goal Time Frame: 4-6 Weeks Goal Progress: Progressing Goal 2:: Independant with posture for ADLS' Goal Time Frame: 4-6 Weeks Goal Progress: Progressing Goal 3:: Patient decrease lumbar pain and leg symptoms by 50% or > to improve QOL. Goal Time Frame: 4-6 Weeks Goal Progress: Progressing Goal 4:: Patient to improve QOL of gait with improved posture 60% of time with improved distance Goal Time Frame: 4-6 Weeks Goal Progress: Progressing Goal 5:: Patient improve lumbar ROM for function of recovery Goal Time Frame: 4-6 Weeks Goal Progress: Progressing Goal 6:: Patient improve back owestry score by 5 points or > to improve QOL. Goal Time Frame: 4-6 Weeks Goal Progress: Progressing Anticipated Interventions Patient/Client Instruction: Educate patient on: Condition, Plan of Care For the Purpose of:: To decrease pain, To increase ROM, To improve ability to perform ADL's, To increase tolerance to activity/condition/position, To improve ability of physical actions for home/community/work/leisure, To improve gait and locomotor functions, To decrease soft tissue restriction, To increase flexibility/ROM, To improve endurance, To improve balance, To improve ability to perform tasks related to life management Therapeutic Exercise to Include: Strength training For the Purpose of:: To decrease pain, To improve muscle performance and motor function, To improve ability to perform ADL's, To increase tolerance to activity/condition/position, To improve performance and independence with ADL's, To improve ability of physical actions for home/community/work/leisure, To improve health of tissue, To decrease soft tissue restriction, To increase flexibility/ROM, To improve ability to perform tasks related to life management Please do not hesitate to contact me at [phone] by phone or if you have questions or concerns regarding this new plan of care! Sincerely, Joseph Fisher, PT, Cert MDT, OCS
--- NOTE | 2020-03-19 13:17 | HP.PTDCSUM ---
It has been my pleasure to treat IMAN ANDREA referred by Dr. Jose Dunn MD, with the diagnosis of LUMBAR RADICULOPATHY ,S/P LUMBAR FUSION REGION,SPONSYLOLISTHESIS for a total of 23 visit(s). Discharge Date: Please see the following information for a summary of their discharge status. Subjective: Plan to see ,concerned with 2nd surger with cononavirus Bilateral Back Pain Intensity (Out of 10): 3 Bilateral Hip Pain Intensity (Out of 10): 3 % Improvement: 50 Objective/Function: POSTURE: mild foward posture ,left shift. GAIT: reciprocal pattern shift to left. MMT:QUADS/HAMS 4/5,HIP 4-/5 ,ANKLD 4/5. LUMBAR ROM : flexion mod loess,extension mod /severe loss Goal 1:: Independant with HEP Goal Progress: Progressing Goal 2:: Independant with posture for ADLS' Goal Progress: Progressing Goal 3:: Patient decrease lumbar pain and leg symptoms by 50% or > to improve QOL. Goal Progress: Progressing Goal 4:: Patient to improve QOL of gait with improved posture 60% of time with improved distance Goal Progress: Progressing Goal 5:: Patient improve lumbar ROM for function of recovery Goal Progress: Progressing Goal 6:: Patient improve back owestry score by 5 points or > to improve QOL. Goal Progress: Progressing Plan: RTD If there are questions or concerns regarding this patient's physical therapy, please feel free to call me at [phone]. Thank you for the referral of this patient. Sincerely, Joseph Fisher, PT, Cert MDT, OCS
== END 2019-12-24 19:00 | disposition home or self-care (01) ==
LOC: PT 15:00
PROVIDERS: PCP Family Medicine; Referring Provider Orthopaedic Surgery Orthopaedic Surgery of the Spine; Visit Provider Orthopaedic Surgery Orthopaedic Surgery of the Spine
DX: M51.16 Intervertebral disc disorders with radiculopathy, lumbar region (principal); Z98.1 Arthrodesis status
CPT/HCPCS: 97110; 97162

== ENCOUNTER → 2020-01-16 12:58 | Outpatient (CLI) | payer MEDICARE, SELFPAY ==
[2019-12-25 14:21] VITALS: BMI 30.8
--- NOTE | 2020-01-16 13:23 | MRI_ITS ---
STUDY: MRI BRAIN (attention IAC) WITHOUT CONTRAST REASON FOR EXAM: Male, 74 years old. lt hearing loss -- x 2 weeks, no pain or tinnitus TECHNIQUE: Standardized multiplanar fat and water weighted pulse sequences were obtained. COMPARISON: None. FINDINGS: There is mild cerebral atrophy with widening of the extra-axial spaces and ventricular dilatation. There are a limited number of small white matter hyperintensities, distributed throughout the deep white matter tracts of the cerebral hemispheres, consistent with mild chronic white matter ischemic changes. There is no evidence for recent intracranial ischemia or other cause of cytotoxic edema on diffusion weighted imaging (DWI). Normal bilateral basal ganglia. Normal thalami. There is no extra-axial fluid accumulation. Normal flow voids within the major intracranial circulation suggesting patency by spin echo criteria. Normal sella turcica, pituitary gland, infundibular stalk, optic chiasm and hypothalamus. Normal tectal plate and pineal gland. Normal midbrain, shelbi and medulla. Normal cerebellum. Normal basal cisterns. Normal bilateral temporal bones. Normal bilateral internal auditory canals. No demonstrated orbital abnormality, within the constraints of a routine brain study. Normal visualized paranasal sinuses. Normal calvarium and skull base. Normal visualized soft tissue structures. Normal visualized upper cervical spine. There is suggestion of opacification of the bilateral mastoid air cells, however this appearance can also be seen with asymmetric pneumatization and marrow signal, but can be correlated with a noncontrast CT of the temporal bones for further assessment if clinically indicated. Normal bilateral temporal bones. Normal bilateral internal auditory canals. There is no demonstrated intracanalicular or cisternal vestibular schwannoma (acoustic neuroma). There is no enhancement of the bilateral VIIth or VIIIth cranial nerves. Normal bilateral cochlea, vestibules and semicircular canals. MRI/Brain without Contrast IMPRESSION: 1. Mild chronic involutional and ischemic changes of the brain, as described above. 2. Negative exam of the internal auditory canal associated structures 3. suggestion of opacification of the bilateral mastoid air cells, however this appearance can also be seen with asymmetric pneumatization and marrow signal, but can be correlated with a noncontrast CT of the temporal bones for further assessment if clinically indicated. Electronically Signed: David Ramey MD at 22:58 EDT , Service support ,
== END ==
PROVIDERS: PCP Family Medicine; Referring Provider Otolaryngology; Visit Provider Otolaryngology
DX: H91.22 Sudden idiopathic hearing loss, left ear (principal)
CPT/HCPCS: 70551

== ENCOUNTER → 2020-02-27 15:52 | Outpatient (CLI) | payer MEDICARE, SELFPAY ==
[2019-12-25 14:21] VITALS: BMI 30.8
[2020-02-27 17:52] LABS: Absolute Lymphocyte Count 1.25 X10^3/uL (0.83-4.51); Absolute Neutrophil Count 3.4 X10^3/uL (2.0-7.7); Basophil# 0.03 X10^3/uL; Basophil% 0.6 % (0-1); Eosinophil# 0.12 X10^3/uL; Eosinophils% 2.3 % (0-5); Hematocrit 43.1 % (40-54); Hemoglobin 14.3 g/dL (13.0-16.5); Lymphocyte # 1.25 X10^3/ul (4.0); Mean Corp Hgb Conc 33.2 g/dL (32-36); Mean Corpuscular Hgb 34.1 pg (27.0-32.0); Mean Corpuscular Volume 102.9 fL (80-94); Monocyte# 0.44 X10^3/uL; Monocyte% 8.5 % (0-10); NRBC Flagged by Analyzer 0 % (0-5); Neutrophil # 3.35 X10^3/uL (2.7-7.7); Neutrophil % 64.4 % (47-70); Platelet Count 194 K/mm3 (150-450); RBC Distribution Width CV 13.6 % (11.6-14.6); RBC Distribution Width SD 51.7 fl (35.1-43.9); Red Blood Count 4.19 M/mm3 (4.6-6.2); White Blood Count 5.2 K/mm3 (4.4-11.0)
[2020-02-27 18:04] LABS: ALB/GLOB Ratio 1.1 RATIO (0.9-2.4); AST(SGOT) 20 U/L (15-37); Alanine Aminotransfer ALT/SGPT 25 U/L (16-61); Albumin, Serum 3.6 g/dL (3.2-5.0); Alkaline Phosphatase 123 U/L (45-117); Anion Gap 6 (5-15); BUN 19 mg/dL (7-18); BUN/Creat Ratio 14.4 RATIO (10-20); Calcium,Total 8.9 mg/dL (8.5-10.1); Chloride 109 mmol/L (98-107); Creatinine, Serum 1.32 mg/dL (0.70-1.30); EST Glomerular Filtration Rate 56 mL/min (>60); Est Glom Filt Rate - Afr Amer 68 mL/min (>60); Globulin 3.3 g/dL (2.2-4.2); Glucose 120 mg/dL (74-106); Potassium 3.9 mmol/L (3.5-5.1); Protein, Total 6.9 g/dL (6.4-8.2); Sodium Level 140 mmol/L (136-145)
== END ==
PROVIDERS: PCP Family Medicine; Referring Provider Internal Medicine Rheumatology; Visit Provider Internal Medicine Rheumatology
DX: M46.90 Unspecified inflammatory spondylopathy, site unspecified (principal); M17.0 Bilateral primary osteoarthritis of knee; M75.40 Impingement syndrome of unspecified shoulder; M19.072 Primary osteoarthritis, left ankle and foot; M51.37 Other intervertebral disc degeneration, lumbosacral region; I10 Essential (primary) hypertension; N20.0 Calculus of kidney; I70.90 Unspecified atherosclerosis; G47.33 Obstructive sleep apnea (adult) (pediatric); I87.2 Venous insufficiency (chronic) (peripheral); E03.9 Hypothyroidism, unspecified; Z86.711 Personal history of pulmonary embolism; Z79.899 Other long term (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
CPT/HCPCS: 36415; 80053; 85025

== ENCOUNTER → 2020-04-01 11:33 | Outpatient (CLI) | payer MEDICARE, SELFPAY ==
[2019-12-25 14:21] VITALS: BMI 30.8
[2020-04-01 17:06] LABS: AST(SGOT) 17 U/L (15-37); Alanine Aminotransfer ALT/SGPT 26 U/L (16-61); Albumin, Serum 3.7 g/dL (3.2-5.0); Alkaline Phosphatase 130 U/L (45-117); Bilirubin, Direct 0.18 mg/dL (0.00-0.30); Cholesterol 125 mg/dL (200); Globulin 3.3 g/dL (2.2-4.2); High Density Lipoprotein 45 mg/dL; T4 Free Direct 1.17 ng/dL (0.76-1.46); Triglycerides 97 mg/dL; Very Low Density Lipoprotein 19 mg/dL (5-40)
== END ==
PROVIDERS: Physician Assistant Medical; PCP Family Medicine; Visit Provider Family Medicine
DX: E03.9 Hypothyroidism, unspecified (principal); E78.5 Hyperlipidemia, unspecified
CPT/HCPCS: 36415; 80061; 80076; 84439; 84443

== ENCOUNTER → 2020-04-30 08:20 | Outpatient (CLI) | payer MEDICARE, SELFPAY ==
[2019-12-25 14:21] VITALS: BMI 30.8
[2020-04-30 12:39] LABS: Absolute Lymphocyte Count 0.84 X10^3/uL (0.83-4.51); Absolute Neutrophil Count 8.7 X10^3/uL (2.0-7.7); Basophil# 0.02 X10^3/uL; Basophil% 0.2 % (0-1); Eosinophil# 0.12 X10^3/uL; Eosinophils% 1.2 % (0-5); Hematocrit 43.4 % (40-54); Hemoglobin 14.1 g/dL (13.0-16.5); Lymphocyte # 0.84 X10^3/ul (4.0); Lymphocyte % 8.2 % (19-41); Mean Corp Hgb Conc 32.5 g/dL (32-36); Mean Corpuscular Volume 104.6 fL (80-94); Mean Platelet Vol. 10.3 fl (6.2-12.0); Monocyte# 0.47 X10^3/uL; Monocyte% 4.6 % (0-10); NRBC Flagged by Analyzer 0 % (0-5); Neutrophil % 85.4 % (47-70); Platelet Count 204 K/mm3 (150-450); RBC Distribution Width CV 14.6 % (11.6-14.6); RBC Distribution Width SD 55.8 fl (35.1-43.9); Red Blood Count 4.15 M/mm3 (4.6-6.2); White Blood Count 10.2 K/mm3 (4.4-11.0)
[2020-04-30 12:59] LABS: ALB/GLOB Ratio 1.1 RATIO (0.9-2.4); AST(SGOT) 20 U/L (15-37); Alanine Aminotransfer ALT/SGPT 23 U/L (16-61); Albumin, Serum 3.3 g/dL (3.2-5.0); Alkaline Phosphatase 123 U/L (45-117); Anion Gap 7 (5-15); BNP,B-Type NATRIURETIC PEPTIDE 33.4 pg/mL (0-100); BUN 15 mg/dL (7-18); Calcium,Total 8.3 mg/dL (8.5-10.1); Chloride 109 mmol/L (98-107); Creatinine, Serum 1.36 mg/dL (0.70-1.30); EST Glomerular Filtration Rate 54 mL/min (>60); Est Glom Filt Rate - Afr Amer 65 mL/min (>60); Ferritin 48 ng/mL (26-388); Glucose 153 mg/dL (74-106); Iron 190 ug/dL (65-175); Potassium 3.8 mmol/L (3.5-5.1); Protein, Total 6.3 g/dL (6.4-8.2); Sodium Level 141 mmol/L (136-145); T4 Free Direct 1.18 ng/dL (0.76-1.46)
== END ==
PROVIDERS: PCP Family Medicine; Visit Provider Family Medicine
DX: R53.83 Other fatigue (principal); R60.9 Edema, unspecified; R06.00 Dyspnea, unspecified; E03.9 Hypothyroidism, unspecified; D50.9 Iron deficiency anemia, unspecified
CPT/HCPCS: 36415; 80053; 82728; 83540; 83880; 84439; 84443; 85025

== ENCOUNTER → 2020-05-02 13:29 | Outpatient (CLI) | payer MEDICARE, SELFPAY ==
[2019-12-25 14:21] VITALS: BMI 30.8
== END ==
PROVIDERS: PCP Family Medicine; Visit Provider Family Medicine
DX: Z20.822 Contact with and (suspected) exposure to COVID-19 (principal)
CPT/HCPCS: 87635; U0005; U0003

== ENCOUNTER → 2020-05-21 15:32 | Outpatient (CLI) | payer MEDICARE, SELFPAY ==
[2020-05-05 14:38] VITALS: BMI 32.9
[2020-05-21 16:59] LABS: Absolute Lymphocyte Count 1.42 X10^3/uL (0.83-4.51); Absolute Neutrophil Count 5.7 X10^3/uL (2.0-7.7); Basophil# 0.02 X10^3/uL; Basophil% 0.3 % (0-1); Eosinophil# 0.14 X10^3/uL; Eosinophils% 1.8 % (0-5); Hematocrit 45.8 % (40-54); Hemoglobin 14.6 g/dL (13.0-16.5); Lymphocyte # 1.42 X10^3/ul (4.0); Mean Corp Hgb Conc 31.9 g/dL (32-36); Mean Corpuscular Hgb 33.8 pg (27.0-32.0); Mean Platelet Vol. 10.3 fl (6.2-12.0); Monocyte# 0.57 X10^3/uL; Monocyte% 7.2 % (0-10); NRBC Flagged by Analyzer 0 % (0-5); Neutrophil # 5.71 X10^3/uL (2.7-7.7); Neutrophil % 72.4 % (47-70); Platelet Count 188 K/mm3 (150-450); RBC Distribution Width CV 14.5 % (11.6-14.6); RBC Distribution Width SD 56.5 fl (35.1-43.9); Red Blood Count 4.32 M/mm3 (4.6-6.2); White Blood Count 7.9 K/mm3 (4.4-11.0)
[2020-05-21 17:22] LABS: ALB/GLOB Ratio 1.2 RATIO (0.9-2.4); AST(SGOT) 24 U/L (15-37); Alanine Aminotransfer ALT/SGPT 27 U/L (16-61); Albumin, Serum 3.8 g/dL (3.2-5.0); Alkaline Phosphatase 117 U/L (45-117); Anion Gap 5 (5-15); BUN 19 mg/dL (7-18); BUN/Creat Ratio 14.1 RATIO (10-20); Calcium,Total 8.8 mg/dL (8.5-10.1); Chloride 110 mmol/L (98-107); Creatinine, Serum 1.35 mg/dL (0.70-1.30); EST Glomerular Filtration Rate 55 mL/min (>60); Est Glom Filt Rate - Afr Amer 66 mL/min (>60); Globulin 3.1 g/dL (2.2-4.2); Glucose 131 mg/dL (74-106); Potassium 4.2 mmol/L (3.5-5.1); Protein, Total 6.9 g/dL (6.4-8.2); Sodium Level 143 mmol/L (136-145)
== END ==
PROVIDERS: PCP Family Medicine; Visit Provider Internal Medicine Rheumatology
DX: M46.90 Unspecified inflammatory spondylopathy, site unspecified (principal); M17.0 Bilateral primary osteoarthritis of knee; M75.40 Impingement syndrome of unspecified shoulder; M19.072 Primary osteoarthritis, left ankle and foot; M51.37 Other intervertebral disc degeneration, lumbosacral region; I10 Essential (primary) hypertension; N20.0 Calculus of kidney; Z79.899 Other long term (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
CPT/HCPCS: 36415; 80053; 85025

== ENCOUNTER → 2020-08-07 14:06 | Outpatient (CLI) | payer MEDICARE, SELFPAY ==
[2020-08-07 15:06] LABS: Absolute Lymphocyte Count 1.14 X10^3/uL (0.83-4.51); Absolute Neutrophil Count 4.5 X10^3/uL (2.0-7.7); Basophil# 0.03 X10^3/uL; Basophil% 0.5 % (0-1); Eosinophil# 0.12 X10^3/uL; Eosinophils% 1.9 % (0-5); Hematocrit 42.5 % (40-54); Hemoglobin 13.9 g/dL (13.0-16.5); Lymphocyte # 1.14 X10^3/ul (0.83-4.51); Lymphocyte % 17.6 % (19-41); Mean Corp Hgb Conc 32.7 g/dL (32-36); Mean Corpuscular Hgb 33.7 pg (27.0-32.0); Mean Corpuscular Volume 102.9 fL (80-94); Mean Platelet Vol. 10.3 fl (6.2-12.0); Monocyte# 0.63 X10^3/uL; Monocyte% 9.7 % (0-10); NRBC Flagged by Analyzer 0 % (0-5); Neutrophil # 4.53 X10^3/uL (2.7-7.7); Platelet Count 210 K/mm3 (150-450); RBC Distribution Width CV 13.2 % (11.6-14.6); RBC Distribution Width SD 50.3 fl (35.1-43.9); Red Blood Count 4.13 M/mm3 (4.6-6.2); White Blood Count 6.5 K/mm3 (4.4-11.0)
[2020-08-07 15:46] LABS: ALB/GLOB Ratio 1.1 RATIO (0.9-2.4); AST(SGOT) 24 U/L (15-37); Alanine Aminotransfer ALT/SGPT 23 U/L (16-61); Albumin, Serum 3.6 g/dL (3.2-5.0); Alkaline Phosphatase 111 U/L (45-117); Anion Gap 6 (5-15); BUN 15 mg/dL (7-18); BUN/Creat Ratio 12.5 RATIO (10-20); Calcium,Total 8.8 mg/dL (8.5-10.1); Chloride 113 mmol/L (98-107); EST Glomerular Filtration Rate 62 mL/min (>60); Est Glom Filt Rate - Afr Amer 76 mL/min (>60); Globulin 3.3 g/dL (2.2-4.2); Glucose 104 mg/dL (74-106); Potassium 4.1 mmol/L (3.5-5.1); Protein, Total 6.9 g/dL (6.4-8.2); Sodium Level 143 mmol/L (136-145)
== END ==
PROVIDERS: PCP Family Medicine; Referring Provider Internal Medicine Rheumatology; Visit Provider Internal Medicine Rheumatology
DX: M46.90 Unspecified inflammatory spondylopathy, site unspecified (principal); M17.0 Bilateral primary osteoarthritis of knee; M75.40 Impingement syndrome of unspecified shoulder; M19.072 Primary osteoarthritis, left ankle and foot; M47.897 Other spondylosis, lumbosacral region; I10 Essential (primary) hypertension; N20.0 Calculus of kidney; I70.90 Unspecified atherosclerosis; G47.33 Obstructive sleep apnea (adult) (pediatric); I87.2 Venous insufficiency (chronic) (peripheral); E03.9 Hypothyroidism, unspecified; M48.02 Spinal stenosis, cervical region; Z79.899 Other long term (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; Z86.711 Personal history of pulmonary embolism
CPT/HCPCS: 36415; 80053; 85025

== ENCOUNTER 2020-08-14 15:00 | Outpatient (RCR) | payer MEDICARE, SELFPAY ==
--- NOTE | 2020-07-15 16:45 | HP.PTEVAL ---
Patient's Visit Information IMAN ANDREA is a 75 year old M referred to Physical Therapy by Dr. Simon Willams MD with a diagnosis of vertigo. Date of Evaluation: 07/15/20 Physical Therapist: Alonso Pineda, DAVIST, OCS, CSCS - Visit Plan Frequency: 2x /Week Duration: 4-6 Weeks Plan: 2x/week for 4 weeks for. 1. Pt to do BD at home adn monitor effects. 2. Teach gym based LE adn postural machine strength and work to I. 3. static ec, foam balance, and dynamic gait balance - Subjective Pt information disappeared when completing his eval after patient left due to update to [employer] so information eetered at later time form memory. Pt is here due to balance being off, He has not fallen. He does not complain of spinning except intermittently upon lying down at night. HE has neuroapthy in feet but does not know why. He uses cane at home but admits to not ebing able to move in the dark, must turn on lights. He also admits to feeling off a ttimes but moslty imbalnaced and no dizzy complaints. He is not sleeping more veronika 4 hours at a time. He enjoys golfing but could not hit ball 2 weeks ago when he last attempted. [place] alone [place] with basement and railiings. he rarely goes down there. Hehas recent asthma diagnosis. He is able to do all of his ADLs aon his own but is slow and labored.He has scoliosis with a left lean. He may need a neck/thoracic surgery this summer. - Pain R leg Pain Intensity (Out of 10): 4 Pain Intensity Range: 4 - Objective Walks with cane slow and hunched leaning to the left 20 degrees until verbally cues and can correct when not fatigued. Trasnfers I to chair with arms. Labored but I transfers to and from bed. Steps are reciprocal and Mod I with rails but very SOB at top and needed to rest. Has compression stockings on feet. cervial aROM WFL but limited symmetrically. UE AROM WFL. LE aROM WFL but max tight HS, gastroc, hip flexors and quads. reflexes 1/3 patella and achilles. Sensation LE diminished to gross light touch in feet and calves. Strength R ankle 3- adn L 3. knees 4- flexiona dn ext. Hip abd and ext 3 and 3+hip flexion. - Balance Scores Functional Gait Assessment Score: 21 % Disability: 30.0000 - Goals Goal 1:: FGA to diminish fall risk Goal Time Frame: 4-6 Weeks Goal 2:: Abolish dizzy at night in bed. Goal Time Frame: 4-6 Weeks Goal 3:: I appropriate gym based program for balance adn LE/postural strength Goal Time Frame: 4-6 Weeks - Rehabilitation Potential Physical Therapy Diagnosis: Imbalanace and poor conditioning due to sedentarism adn RA, possible BPPV Rehabilitation Potential: Fair - Anticipated Interventions Patient/Client Instruction: Educate patient on: Condition For the Purpose of:: To improve muscle performance and motor function, To increase tolerance to activity/condition/position Therapeutic Exercise to Include: Strength training, Balance training, Gait and locomotor training, Neuromotor development For the Purpose of:: To improve muscle performance and motor function, To increase tolerance to activity/condition/position, To improve gait and locomotor functions Thank you for the opportunity to evaluate your patient. For Medicare and Medicare HMO plans, please review the plan of care and approve it. It will need to be FAXED BACK to us at [phone] for Medicare purposes. For Medicare only, by signing this I certify the plan of care. Please let me know if there are questions or concerns regarding this plan of care. Physician Signature: Date:
--- NOTE | 2020-08-14 15:58 | HP.PTREVAL_ITS ---
Dr. Simon Willams MD, It has been my pleasure to treat IMAN ANDREA over the last 9 visits for vertigo. Please see the progress note below for an update on the physical therapy plan of care! Subjective: Did workout in therapy today. Feels like has been getting alot more out of the last 2-3 sessions. Changed shoes and they help his balance. Feels b dulce overall. Been doing more machines in therapy. Balance and dizzyness both improved. No falls. Activities at home are retty normal. Dizzyness is 90% gone. Objective/Function: Walking with cane mod I. Without cane scores +3 on FGA. Feels better and feels like he can continue on his own in the gym as member Plan Plan: f/u 3 weeks to check FGA, answer questions/progress workout adn likely d/c. Call prior if problems. Goals Goal 1:: FGA to diminish fall risk Goal Time Frame: 4-6 Weeks Goal Progress: Goal Met Goal 2:: Abolish dizzy at night in bed. Goal Time Frame: 4-6 Weeks Goal Progress: Goal Met Goal 3:: I appropriate gym based program for balance adn LE/postural strength Goal Time Frame: 4-6 Weeks Goal Progress: Goal Met Anticipated Interventions Patient/Client Instruction: Educate patient on: Condition For the Purpose of:: To improve muscle performance and motor function, To increase tolerance to activity/condition/position Therapeutic Exercise to Include: Strength training, Balance training, Gait and locomotor training, Neuromotor development For the Purpose of:: To improve muscle performance and motor function, To increase tolerance to activity/condition/position, To improve gait and locomotor functions Please do not hesitate to contact me at [phone] by phone or if you have questions or concerns regarding this new plan of care! Sincerely, Alonso Pineda, DPT, OCS, CSCS
--- NOTE | 2020-10-14 11:47 | HP.PT.NRP ---
IMAN ANDREA was seen in my office for initial evaluation on 07/15/20. The following Plan of Care was established for this patient: Initial Frequency: 2x /Week Initial Duration: 4-6 Weeks Patient/Client Instruction: Educate patient on: Condition For the Purpose of:: To improve muscle performance and motor function, To increase tolerance to activity/condition/position Therapeutic Exercise to Include: Strength training, Balance training, Gait and locomotor training, Neuromotor development For the Purpose of:: To improve muscle performance and motor function, To increase tolerance to activity/condition/position, To improve gait and locomotor functions This patient was last seen in our office 08/14/20. Pertinent comments regarding their Physical therapy will appear below: Pt seen for 9 visits of POC adn was 50% better. He was to continue via HEP and f/u 3 weeks later but did not schedule or attend his f/u. At this point, it has been over a month adn I will discontinue due to nonattendance. At this point I will be discontinuing this patient from physical therapy. I would be happy to see this patient again in the future if found appropriate by the physician. Thank you! Alonso Pineda, DPT, OCS, CSCS Balance/Gait/Functional tests - Balance/Special Test Scores Functional Gait Assessment Score: 24 % Disability: 20.0000 Dizziness Score: 48
== END 2020-08-14 19:00 | disposition home or self-care (01) ==
LOC: PT 15:00
PROVIDERS: PCP Family Medicine; Referring Provider Family Medicine; Visit Provider Family Medicine
DX: H81.10 Benign paroxysmal vertigo, unspecified ear (principal)
CPT/HCPCS: 97110; 97162; 97530

== ENCOUNTER → 2020-11-03 11:04 | Outpatient (CLI) | payer MEDICARE, SELFPAY ==
[2020-10-16 13:22] VITALS: BMI 31.0
[2020-10-31 11:26] VITALS: BMI 31.1
--- NOTE | 2020-11-03 13:31 | SP.MBSS_ITS ---
Modified Barium Swallow - Patient Information Study Date: 11/03/20 Study Time: 12:15 Direct Billable Minutes: 100 Total Minutes procedure & reportin Diagnosis: Dysphagia, unspecified (R13.10) Referring Physician: Isaiah Freire Reason for Referral: Objectively assess for swallow dysfunction and aspiration risk. Medical History: PMH: Asthma, relfux, Arthritis, back surgeries with another one possibly pending, spinal stenosis, anticipating another cervical surgery in the future, large Hiatal hernia, gall bladder removed, severe sleep apnea. The patient participated in outpatient bedside swallow evaluation 10/27/2020 with recommendation for Regular textures / Thin liquids and plan for further speech therapy pending results of recommended MBS study to further assess for swallow dysfunction and aspiration risk. The patient reports continued complaints for coughing intermittently with consumption of food and drink. He denies history of pneumonia. He has reflux managed by medication; however, pt reported he has a ?different eating schedule? that likely has a negative impact concerning his reflux (e.g. ?eating spaghetti at 1am?). Current Diet Ordered: Regular textures / Thin liquids Mental Status: WNL Respiratory Status: Oxygenating on Room Air - Penetration-Aspiration Scale Penetration-Aspiration Scale: OBJECTIVE ASSESSMENT OF SWALLOW FUNCTION (QUANTITATIVE ? PER TRIAL): PENETRATION / ASPIRATION SCALE (HARDEN): 1 = does not enter airway 2 = enters airway/above vocal folds/ejected 3 = enters airway/above vocal folds/not ejected 4 = enters airway/contacts vocal folds/ejected 5 = enters airway/contacts vocal folds/not ejected 6 = enters airway/below vocal folds/ejected 7 = enters airway/below vocal folds/not ejected despite effort 8 = enters airway/below vocal folds/no effort VIDEOFLOROSCOPIC SCALE SCORE (HARDEN): Grade I = aspiration of material that has penetrated into the laryngeal vestibule, intact cough reflex Grade II = aspiration < 10 % of the bolus, intact cough reflex Grade III = aspiration of < 10 % of the bolus, reduced cough reflex or aspiration of > 10 % of the bolus, intact cough reflex Grade IV = aspiration of > 10 % of the bolus, reduced cough reflex - Penetration-Aspiration Scale Score Thin Liquid via teaspoon Result: 2= enter airway/above vocal folds/ejected Thin Liquid via teaspoon Trial 2 Result: 1= does not enter airway Thin Liquid via small single sip from cup Result: 1= does not enter airway Thin Liquid via sequential sips from cup Result: 2= enter airway/above vocal folds/ejected Varnell Thick Liquid via small single sip from cup Result: 1= does not enter airway Honey Thick Liquid via small single sip from cup Result: 1= does not enter airway Pudding with esophageal screen Result: 1= does not enter airway Cookie Result: 1= does not enter airway Thin Liquid via single sip from straw Result: 3= enters airways/above vocal folds/not ejected - Could not determine if sip fully ejected due pt's body habitus. Thin Liquid via sequential sips from straw Result: 1= does not enter airway Thin Liquid via single sip from cup Result: 1= does not enter airway - Cued pt to take his normal sip. - Oral Phase Labial Seal: No Labial Escape Tongue Control During Bolus Hold: Posterior escape of less than half of bolus Bolus Preparation/Mastication: Slow prolonged chewing/mashing with complete recollection Bolus Transport/Lingual Motion: Delayed initiation of tongue motion Oral Residue: Majority of bolus remaining - Piecemeal deglutition observed with honey thick liquid, pudding, and cookie - Pt independently cleared oral residues with use of second and third swallows. - Pharyngeal Phase Initiation of Pharyngeal Swallow: Bolus head in pyriforms - Noted with single sip via straw - Contrast in laryngeal vestibule upon swallow onset. Soft Palate Elevation: No bolus between soft palate and pharyngeal wall Laryngeal Elevation: Partial superior movement thyroid cart/partial apprx aryt- epig petiole Anterior Hyoid Excursion: Partial anterior movement Epiglottic Movement: Complete inversion Laryngeal Vestibule Closure at Height of Swallow: Incomplete; narrow column of air/contrast in laryngeal vestibule Pharyngeal Stripping Wave: Present - diminished Pharyngoesophageal Segment Opening: Parital distension and partial duration; parital obstruction of flow Tongue Base Retraction: Trace column of contrast between tongue base & post. pharyngeal wall Pharyngeal Residue: Trace residue within or on pharyngeal structures - Esophageal Phase Esophageal Clearance: Esophageal retention - Treatment Strategies Effects of treatment strategies attemped:: Decreased bolus rate = Effective. Use of straw = Not effective. - Diagnosis/Impression Diagnosis: Mild oropharyngeal phase dysphagia (R13.12) Impression: The oral phase of the swallow is primarily marked by mild deficits in bolus control and transport. The patient had decreased bolus control with consumption of thin liquids via straw, resulting in the presence of contrast in the laryngeal vestibule and pyriform sinus upon swallow onset. The patient also demonstrated piecemeal deglutition, primarily with thicker viscosities and textures (e.g. honey, pudding, cookie); however, the patient was able to independently clear oral residues with independent initiation of 2nd and 3rd swallows. The pharyngeal phase of the swallow is marked by decreased airway closure due to decreased laryngeal elevation and anterior hyoid excursion. He had laryngeal pen etration of thin liquids via sequential cup sips and via straw. Sequential sips via cup ejected from laryngeal vestibule. Unable to determine if the sip via straw fully ejected from the laryngeal vestibule due to pt's body habitus. The patient presents with a forward leaning posture at baseline, and he was unable to achieve a 90 degree upright position for intake. A prominent cricopharyngeal bar located at the C-5 level was observed. It appeared to have no impact on UES opening or pharyngeal motility. During esophageal screen of pudding, CAMERA OPERATOR observed pt's large hiatal hernia resulting in retention of various barium contrasts consumed during the study. - Recommendations Diet: Regular Textures, Thin Liquids Comment: Consider eating smaller meals, 4-5X per day due to large hiatal hernia. Compensatory Strategies: Small Bites, Small Sips, Slow Rate, Sitting upright, Remain sitting upright for 30 minutes after PO intake Recommend Repeat Modified Barium Swallow: No Need for Skilled Speech Therapy Services: Yes Comment: Would recommend continued outpatient dysphagia therapy to provide the patient further education re: diet recommendations, oropharyngeal strengthening, and aspiration precautions. The patient would additionally benefit from thorough education re: management of reflux and hiatal hernia (foods to avoid, remaining upright following meals, eating smaller meals 4-5X daily). Education Completed: 1. Described result of evaluation., 2. Pt understands evaluation & agrees with goals and treatment plan., 7. Pt requires further education on strategies & risks. - Status Active ST Patient: Active - Contact Information [facility] Speech Therapy:: Hattie Briseno M.A. [facility] Speech-Language Pathologist [facility] [address] [place] [address] [email or web address] [phone] 11/03/20 13:45
== END ==
PROVIDERS: PCP Family Medicine; Referring Provider Surgery; Visit Provider Surgery
DX: R13.10 Dysphagia, unspecified (principal)
CPT/HCPCS: 74230; 92611

== ENCOUNTER → 2020-11-06 16:32 | Outpatient (CLI) | payer MEDICARE, SELFPAY ==
[2020-11-06 17:40] LABS: Absolute Lymphocyte Count 1.41 X10^3/uL (0.83-4.51); Absolute Neutrophil Count 5.5 X10^3/uL (2.0-7.7); Basophil# 0.02 X10^3/uL; Basophil% 0.3 % (0-1); Eosinophil# 0.16 X10^3/uL; Eosinophils% 2.1 % (0-5); Hematocrit 39.9 % (40-54); Lymphocyte # 1.41 X10^3/ul (0.83-4.51); Lymphocyte % 18.8 % (19-41); Mean Corp Hgb Conc 32.6 g/dL (32-36); Mean Corpuscular Hgb 33.7 pg (27.0-32.0); Mean Corpuscular Volume 103.4 fL (80-94); Mean Platelet Vol. 10.7 fl (6.2-12.0); Monocyte# 0.45 X10^3/uL; NRBC Flagged by Analyzer 0 % (0-5); Neutrophil # 5.46 X10^3/uL (2.7-7.7); Neutrophil % 72.5 % (47-70); Platelet Count 204 K/mm3 (150-450); RBC Distribution Width SD 52.3 fl (35.1-43.9); Red Blood Count 3.86 M/mm3 (4.6-6.2); White Blood Count 7.5 K/mm3 (4.4-11.0)
[2020-11-06 17:54] LABS: ALB/GLOB Ratio 1.1 RATIO (0.9-2.4); AST(SGOT) 34 U/L (15-37); Alanine Aminotransfer ALT/SGPT 36 U/L (16-61); Albumin, Serum 3.6 g/dL (3.2-5.0); Alkaline Phosphatase 95 U/L (45-117); Anion Gap 3 (5-15); BUN 29 mg/dL (7-18); BUN/Creat Ratio 17.4 RATIO (10-20); Calcium,Total 8.8 mg/dL (8.5-10.1); Chloride 109 mmol/L (98-107); Creatinine, Serum 1.67 mg/dL (0.70-1.30); EST Glomerular Filtration Rate 43 mL/min (>60); Est Glom Filt Rate - Afr Amer 52 mL/min (>60); Globulin 3.4 g/dL (2.2-4.2); Glucose 116 mg/dL (74-106); Potassium 4.3 mmol/L (3.5-5.1); Sodium Level 139 mmol/L (136-145)
== END ==
PROVIDERS: PCP Family Medicine; Referring Provider Internal Medicine Rheumatology; Visit Provider Internal Medicine Rheumatology
DX: M46.90 Unspecified inflammatory spondylopathy, site unspecified (principal); M17.0 Bilateral primary osteoarthritis of knee; M75.40 Impingement syndrome of unspecified shoulder; M19.072 Primary osteoarthritis, left ankle and foot; Z79.899 Other long term (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
CPT/HCPCS: 36415; 80053; 85025

== ENCOUNTER 2020-11-26 13:30 | Outpatient (RCR) | payer MEDICARE, SELFPAY ==
[2020-10-16 13:22] VITALS: BMI 31.0
--- NOTE | 2020-10-27 15:09 | HP.SP.AD ---
History - History Date of Eval: 10/24/20 Medical Diagnosis (from RX): Dysphagia Previous speech therapy: No Other Relevant Medical History/Diagnoses/Surgery: Asthma, relfux, Arthritis, back surgeries with another one possibly pending. spinal stenosis. Anticipate another cervical surgery in the future. Large Hiatal hernia. gall bladder removed. severe sleep apnea. Medications related to this diagnosis: Breo, proair, baby aspirin, omeprazole Smoking Status: Never smoker Hx Smoking: No Hx Tobacco Use: No - Pain Is pain an issue with your current prescribed condition?: No - Personal Education History: college Occupation: Retired Right Hearing Abillity: Normal Left Hearing Abillity: Normal Visual Assistive Devices: Glasses Patients Living Arrangements: Alone Patient Allergies - Allergies Allergies Antihistamines - Ethylenediamine Adverse Reaction (Verified 10/16/20 13:23) Other HYPERACTIVITY Objective Oral Motor - Oral Status Dentition: Missing Teeth Additional: 3-4 back teeth - Labial Impairment: WNL - Lingual Impairment: WNL Protrusion: WNL Retraction: WNL Lateralization: WNL - Lingual Comments Comments: Difficulty with elevation. - Jaw Impairment: WNL - Respiratory Status Respiratory Status: Room Air Subjective Dysphagia - Symptoms Reported Symptoms/Problems with: Coughing, Difficulty Swallowing Solids, Difficulty Swallowing Liquids - Current Diet Solids Current Diet: Regular - Current Diet Liquids Current Liquids: Thin Objective Dysphagia - Administered by Administered by: Self - Thin Liquids Administred via: Cup Symptoms: Throat Clearing Laryngeal Elevation: WFL Oral Holding: No Gagging: No Patient Report: No complaints on this drink. Comments: Delayed throat clearing, difficult to tell if related as the patient had a cough noted prior to intake. - Regular Impaired Mastication: Patient had missing teeth. Laryngeal Elevation: WFL Oral Holding: No Gagging: No Patient Report: Double swallow to clear anything left. He reported 3-4 missing teeth in back which he has to lingual sweep to clear. Plan - Plan Plan: Therapy is recommending pending the results of MBS scheduled on 11/03/20. - Recommendations MBS: Yes Treatment Warranted: Yes - Prognosis Prognosis: Good - Goals that are Established: Determination:: Goals will be added/modified as deemed necessary and appropriate. Therapy will be discontinued when results of re-evaluation indicate therapy is no longer needed or lack of progress has been documented. - Goal #1-5 Goal #1: Patient will tolerate the least restrictive means of nutrition to facilitate adequate hydration/nutrition with optimum safety and efficiency of swallowing function during P.O. intake without overt signs and symptoms of aspiration. Goal #2: Patient will demonstrate and utilize recommended velopharyngeal and oropharyngeal strengthening exercises to facilitate improved velopharyngeal and oropharyngeal strength and coordination with minimal cueing and prompting provide by the clinician, across 3 to 3 sessions. Education - Patient has Indicated that the Following Identified Educational Needs: None The Patient has indicated that they have no educational or learning abilities that may effect their care.: Yes - Patient Instruction Patient Education: Diagnosis, Treatment Plan Person Taught: Patient Teaching Method: Discussion Response to teaching: Verbalize understanding
--- NOTE | 2021-01-13 14:07 | HP.SP.DC ---
ST Discharge Summary - Discharged: Discharge: Venancio Cowan is discharge from [facility] speech therapy as of 11/26/20 as no further treatment is warranted. MBs placed patient on regular diet with thin liquids. Patient was educated on results of MBS as well as precautions. Patient had no questions. Patient gave current history and stated that he is seeing two doctors in the near future to determine cause of shortness of breath. Patient no longer needs skilled speech therapy. Thank you for allowing me to participate in the care of this patient.
== END 2020-11-26 19:00 | disposition home or self-care (01) ==
LOC: SP 13:30
PROVIDERS: PCP Family Medicine; Referring Provider Surgery; Visit Provider Surgery
DX: R13.10 Dysphagia, unspecified (principal)
CPT/HCPCS: 92526; 92610

== ENCOUNTER → 2020-12-03 13:46 | Outpatient (CLI) | payer MEDICARE, SELFPAY ==
[2020-10-31 11:26] VITALS: BMI 31.1
--- NOTE | 2020-12-03 13:50 | ECHOD_ITS ---
Reason For Study: CAD Procedure This was a 2D Doppler, Color Flow transthoracic echocardiogram. Patient was scanned in supine position during reflux assessment. Technically difficult parsternal window in supine position- due to severe sciatica pain. The study was technically difficult. Exam performed in department. Left Ventricle Normal LV size. Left ventricular systolic function is normal. The estimated ejection fraction is 60 %. No evidence for diastolic dysfunction. No regional wall motion abnormalities noted. Right Ventricle Normal RV size. Normal systolic function. Atria Normal left atrium. Normal right atrium. No doppler evidence for ASD. Mitral Valve There is no mitral annular calcification. Normal mitral valve. Trivial mitral valve insufficiency. Tricuspid Valve Normal tricuspid valve. Trivial tricuspid valve insufficiency. Right ventricular systolic pressure estimated to be 22 mmHg. Aortic Valve Trisinus/trileaflet aortic valve. Moderate focal aortic valve calcification. Pulmonic Valve The pulmonic valve is not well visualized. Great Vessels The aortic root is not well visualized. Pericardium/Pleural No pericardial effusion. MMode/2D Measurements & Calculations RVDd: 3.0 cm LAV(MOD-sp4): 55.7 ml LVAd ap4: 23.8 cm2 LVLd ap4: 7.2 cm EDV(MOD-sp4): 63.7 ml EDV(sp4-el): 67.3 ml LVAs ap4: 14.5 cm2 LVLs ap4: 6.6 cm ESV(MOD-sp4): 28.5 ml ESV(sp4-el): 27.0 ml EF(MOD-sp4): 55.3 % EF(sp4-el): 59.9 % LVAd ap2: 27.9 cm2 SV(MOD-sp4): 35.2 ml SV(MOD-sp2): 46.2 ml LVLd ap2: 8.0 cm EDV(MOD-sp2): 79.9 ml EDV(sp2-el): 82.8 ml LVAs ap2: 16.3 cm2 LVLs ap2: 6.4 cm ESV(MOD-sp2): 33.7 ml ESV(sp2-el): 35.1 ml EF(MOD-sp2): 57.8 % SV(sp4-el): 40.3 ml LA dimension(2D): 2.6 cm LA A4 area: 20.2 cm2 RA A4 area: 17.6 cm2 Doppler Measurements & Calculations MV E max david: 86.3 cm/sec Med Peak E' David: 6.5 cm/sec Ao V2 max: 132.7 cm/sec MV A max david: 94.0 cm/sec E/E' med: 13.2 Ao max P.1 mmHg MV E/A: 0.92 TR max david: 220.0 cm/sec TR max P.4 mmHg ECHO/Echo Complete Interpretation Summary The study was technically difficult. Left ventricular systolic function is normal. The estimated ejection fraction is 60 %. Trivial mitral valve insufficiency. Trivial tricuspid valve insufficiency. Moderate focal aortic valve calcification. Right ventricular systolic pressure estimated to be 22 mmHg. No evidence for diastolic dysfunction. Ordering Physician: Kayode Ramirez Referring Physician: BRITTANI SINCLAIR Performed By: Kathy Morrow, SHANT, RVT
[2020-12-03 18:04] LABS: ALB/GLOB Ratio 0.9 RATIO (0.9-2.4); AST(SGOT) 21 U/L (15-37); Alanine Aminotransfer ALT/SGPT 30 U/L (16-61); Albumin, Serum 3.5 g/dL (3.2-5.0); Alkaline Phosphatase 96 U/L (45-117); Anion Gap 5 (5-15); BUN 22 mg/dL (7-18); BUN/Creat Ratio 13.8 RATIO (10-20); Calcium,Total 9.2 mg/dL (8.5-10.1); Chloride 108 mmol/L (98-107); EST Glomerular Filtration Rate 45 mL/min (>60); Est Glom Filt Rate - Afr Amer 54 mL/min (>60); Globulin 3.7 g/dL (2.2-4.2); Glucose 93 mg/dL (74-106); Potassium 4.3 mmol/L (3.5-5.1); Protein, Total 7.2 g/dL (6.4-8.2); Sodium Level 140 mmol/L (136-145)
== END ==
PROVIDERS: Internal Medicine Rheumatology; PCP Family Medicine; Referring Provider Internal Medicine Cardiovascular Disease; Visit Provider Internal Medicine Cardiovascular Disease
DX: I25.10 Atherosclerotic heart disease of native coronary artery without angina pectoris (principal); I10 Essential (primary) hypertension; E78.5 Hyperlipidemia, unspecified; G47.33 Obstructive sleep apnea (adult) (pediatric); M46.90 Unspecified inflammatory spondylopathy, site unspecified; M17.0 Bilateral primary osteoarthritis of knee; M75.40 Impingement syndrome of unspecified shoulder; M19.072 Primary osteoarthritis, left ankle and foot; M47.897 Other spondylosis, lumbosacral region; N20.0 Calculus of kidney; I70.90 Unspecified atherosclerosis; I87.2 Venous insufficiency (chronic) (peripheral); E03.9 Hypothyroidism, unspecified; M48.02 Spinal stenosis, cervical region; Z95.5 Presence of coronary angioplasty implant and graft; Z79.899 Other long term (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; Z86.711 Personal history of pulmonary embolism
CPT/HCPCS: 36415; 80053; 93306

== ENCOUNTER → 2020-12-10 14:31 | Outpatient (CLI) | payer MEDICARE, SELFPAY ==
--- NOTE | 2020-12-10 14:35 | RAD_ITS ---
STUDY: X-RAY - CERVICAL SPINE REASON FOR EXAM: Male, 75 years old. BACK AND NECK PAIN TECHNIQUE: 3 view(s) of the cervical spine were obtained. COMPARISON: None FINDINGS: There are degenerative changes of the anterior atlantoaxial articulation. Normal odontoid process. There is straightening of the normal cervical lordosis. There is multi-level endplate spondylosis. There is multi-level degenerative disc disease with multilevel disc space narrowing. Minimal anterior listhesis of C4 on C5. Facet joint osteoarthritis. There are atherosclerotic vascular calcifications of the carotid arteries. RAD/Cerv Spine 2 or 3 Views IMPRESSION: Degenerative changes. Minimal anterior listhesis of C4 on C5. Electronically Signed: Sundeep Miller MD at 8:25 EDT , Service support ,
--- NOTE | 2020-12-10 14:35 | RAD_ITS ---
STUDY: X-RAY - LUMBAR SPINE REASON FOR EXAM: Male, 75 years old. BACK AND NECK PAIN TECHNIQUE: 3 view(s) of the lumbar spine were obtained. COMPARISON: None FINDINGS: There is straightening of the normal lumbar lordosis. There is a dextroscoliosis of the lumbar spine. There is a normal alignment of the vertebrae. There is multilevel endplate spondylosis of the lumbar vertebrae. There is multi-level degenerative disc disease with multi-level disc space narrowing. The patient is status post laminectomy and interpedicular screw and carlos eduardo fixation at the L2-L3, L3-L4, L4-L5 levels. Loss of height of the superior endplate of the L2 vertebrae. The soft tissue structures are unremarkable. RAD/Lumbar Spine 2 or 3 Views IMPRESSION: Degenerative changes of the spine, as detailed above. Status post laminectomy and fusion at the L2-L3, L3-L4 and L4-L5 levels. Mild loss of height of the superior endplates of the L2 vertebrae. Electronically Signed: Sundeep Miller MD at 8:26 EDT , Service support ,
== END ==
PROVIDERS: PCP Family Medicine; Referring Provider Anesthesiology Pain Medicine; Visit Provider Anesthesiology Pain Medicine
DX: M43.12 Spondylolisthesis, cervical region (principal); M47.816 Spondylosis without myelopathy or radiculopathy, lumbar region; Z98.1 Arthrodesis status
CPT/HCPCS: 72040; 72100

== ENCOUNTER → 2021-02-06 | Outpatient (CLI) | payer MEDICARE, SELFPAY | END | disposition home or self-care (01) | PROVIDERS: PCP Family Medicine; Referring Provider Family Medicine; Visit Provider Family Medicine | DX: Z20.822 Contact with and (suspected) exposure to COVID-19 (principal) | CPT/HCPCS: 87635; U0005; U0003 ==

== ENCOUNTER → 2021-03-09 08:31 | Outpatient (CLI) | payer MEDICARE, SELFPAY ==
[2021-03-09 10:01] LABS: Absolute Lymphocyte Count 2.05 X10^3/uL (0.83-4.51); Basophil# 0.05 X10^3/uL; Basophil% 0.7 % (0-1); Eosinophil# 0.25 X10^3/uL; Eosinophils% 3.5 % (0-5); Hematocrit 40.9 % (40-54); Hemoglobin 13.1 g/dL (13.0-16.5); Lymphocyte # 2.05 X10^3/ul (0.83-4.51); Lymphocyte % 28.6 % (19-41); Mean Corpuscular Hgb 32.2 pg (27.0-32.0); Mean Corpuscular Volume 100.5 fL (80-94); Mean Platelet Vol. 9.5 fl (6.2-12.0); Monocyte# 0.76 X10^3/uL; Monocyte% 10.6 % (0-10); NRBC Flagged by Analyzer 0 % (0-5); Neutrophil # 4.03 X10^3/uL (2.7-7.7); Neutrophil % 56.3 % (47-70); Platelet Count 210 K/mm3 (150-450); RBC Distribution Width CV 13.6 % (11.6-14.6); RBC Distribution Width SD 50.3 fl (35.1-43.9); Red Blood Count 4.07 M/mm3 (4.6-6.2); White Blood Count 7.2 K/mm3 (4.4-11.0)
[2021-03-09 10:12] LABS: Albumin, Serum 3.3 g/dL (3.2-5.0); BUN 24 mg/dL (7-18); BUN/Creat Ratio 16.1 RATIO (10-20); Creatinine, Serum 1.49 mg/dL (0.70-1.30); EST Glomerular Filtration Rate 49 mL/min (>60); Est Glom Filt Rate - Afr Amer 59 mL/min (>60); Glucose 88 mg/dL (74-106); Protein, Total 7.3 g/dL (6.4-8.2)
[2021-03-09 10:13] LABS: ALB/GLOB Ratio 0.8 RATIO (0.9-2.4); AST(SGOT) 23 U/L (15-37); Alanine Aminotransfer ALT/SGPT 29 U/L (16-61); Alkaline Phosphatase 95 U/L (45-117); Anion Gap 7 (5-15); Calcium,Total 8.3 mg/dL (8.5-10.1); Chloride 108 mmol/L (98-107); Potassium 3.8 mmol/L (3.5-5.1); Sodium Level 141 mmol/L (136-145)
== END ==
PROVIDERS: PCP Family Medicine; Referring Provider Internal Medicine Rheumatology; Visit Provider Internal Medicine Rheumatology
DX: M46.90 Unspecified inflammatory spondylopathy, site unspecified (principal); M17.0 Bilateral primary osteoarthritis of knee; M25.812 Other specified joint disorders, left shoulder; M25.811 Other specified joint disorders, right shoulder; M19.072 Primary osteoarthritis, left ankle and foot; M47.897 Other spondylosis, lumbosacral region; I10 Essential (primary) hypertension; Z96.652 Presence of left artificial knee joint; Z79.899 Other long term (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
CPT/HCPCS: 36415; 80053; 85025

== ENCOUNTER 2021-04-29 16:20 | Outpatient (CLI) | payer MEDICARE, SELFPAY ==
--- NOTE | 2021-04-29 16:24 | RAD_ITS ---
STUDY: X-RAY - CERVICAL SPINE REASON FOR EXAM: Male, 75 years old. Neck pain and headaches. TECHNIQUE: 4 view(s) of the cervical spine were obtained. COMPARISON: 12/10/2020. FINDINGS: Osteopenia. Normal anterior atlantoaxial articulation. Normal odontoid process. Diffuse uncovertebral and facet sclerosis. Stable 6 mm of anterolisthesis of C4 on C5. Intervertebral disc space narrowing at 45, C5-6 and C6-7, unchanged. Osteophyte formation at C5-6 and C6-7 unaltered. The soft tissue structures are unremarkable. RAD/Cerv Spine 2 or 3 Views IMPRESSION: Stable osteopenia with moderate lower cervical spondylosis. No acute abnormality or evidence of erosive changes/fusion. Electronically Signed: Breezy Escobedo MD at 9:13 EST ,
== END 2021-04-29 23:59 | disposition home or self-care (01) ==
LOC: MTRAD 16:23
PROVIDERS: PCP Family Medicine; Referring Provider Anesthesiology Pain Medicine; Visit Provider Anesthesiology Pain Medicine
DX: M50.30 Other cervical disc degeneration, unspecified cervical region (principal); M47.812 Spondylosis without myelopathy or radiculopathy, cervical region
CPT/HCPCS: 72040

== ENCOUNTER 2021-05-22 15:30 | Outpatient (CLI) | payer MEDICARE, SELFPAY ==
[2021-05-22 17:36] LABS: Absolute Lymphocyte Count 1.62 X10^3/uL (0.83-4.51); Absolute Neutrophil Count 4.4 X10^3/uL (2.0-7.7); Basophil# 0.04 X10^3/uL; Basophil% 0.6 % (0-1); Eosinophil# 0.07 X10^3/uL; Hematocrit 39.9 % (40-54); Hemoglobin 12.9 g/dL (13.0-16.5); Lymphocyte # 1.62 X10^3/ul (0.83-4.51); Lymphocyte % 23.4 % (19-41); Mean Corp Hgb Conc 32.3 g/dL (32-36); Mean Corpuscular Hgb 31.5 pg (27.0-32.0); Mean Corpuscular Volume 97.3 fL (80-94); Mean Platelet Vol. 10.1 fl (6.2-12.0); Monocyte# 0.77 X10^3/uL; Monocyte% 11.1 % (0-10); NRBC Flagged by Analyzer 0 % (0-5); Neutrophil # 4.41 X10^3/uL (2.7-7.7); Neutrophil % 63.8 % (47-70); Platelet Count 211 K/mm3 (150-450); RBC Distribution Width CV 13.4 % (11.6-14.6); RBC Distribution Width SD 48.1 fl (35.1-43.9); White Blood Count 6.9 K/mm3 (4.4-11.0)
[2021-05-22 17:55] LABS: ALB/GLOB Ratio 1.1 RATIO (0.9-2.4); AST(SGOT) 19 U/L (15-37); Alanine Aminotransfer ALT/SGPT 20 U/L (16-61); Albumin, Serum 3.7 g/dL (3.2-5.0); Alkaline Phosphatase 94 U/L (45-117); Anion Gap 4 (5-15); BUN 25 mg/dL (7-18); Calcium,Total 9.2 mg/dL (8.5-10.1); Chloride 110 mmol/L (98-107); Creatinine, Serum 1.56 mg/dL (0.70-1.30); EST Glomerular Filtration Rate 46 mL/min (>60); Est Glom Filt Rate - Afr Amer 56 mL/min (>60); Globulin 3.4 g/dL (2.2-4.2); Glucose 71 mg/dL (74-106); Potassium 4.2 mmol/L (3.5-5.1); Protein, Total 7.1 g/dL (6.4-8.2); Sodium Level 143 mmol/L (136-145)
== END 2021-05-22 23:59 | disposition home or self-care (01) ==
LOC: MTLAB 15:32
PROVIDERS: PCP Family Medicine; Referring Provider Internal Medicine Rheumatology; Visit Provider Internal Medicine Rheumatology
DX: M46.90 Unspecified inflammatory spondylopathy, site unspecified (principal); M17.0 Bilateral primary osteoarthritis of knee; M75.40 Impingement syndrome of unspecified shoulder; M19.072 Primary osteoarthritis, left ankle and foot; M47.897 Other spondylosis, lumbosacral region; I10 Essential (primary) hypertension; N20.0 Calculus of kidney; I70.90 Unspecified atherosclerosis; G47.33 Obstructive sleep apnea (adult) (pediatric); I87.2 Venous insufficiency (chronic) (peripheral); E03.9 Hypothyroidism, unspecified; M48.02 Spinal stenosis, cervical region; Z79.899 Other long term (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; Z86.711 Personal history of pulmonary embolism
CPT/HCPCS: 36415; 80053; 85025

== ENCOUNTER → 2021-08-24 | Outpatient (CLI) | payer MEDICARE, SELFPAY ==
[2021-08-24 15:30] LABS: Absolute Lymphocyte Count 1.46 X10^3/uL (0.83-4.51); Absolute Neutrophil Count 4.7 X10^3/uL (2.0-7.7); Basophil# 0.05 X10^3/uL; Basophil% 0.7 % (0-1); Eosinophil# 0.16 X10^3/uL; Eosinophils% 2.2 % (0-5); Hematocrit 40.4 % (40-54); Hemoglobin 12.6 g/dL (13.0-16.5); Lymphocyte # 1.46 X10^3/ul (0.83-4.51); Lymphocyte % 20.3 % (19-41); Mean Corp Hgb Conc 31.2 g/dL (32-36); Mean Corpuscular Hgb 30.3 pg (27.0-32.0); Mean Corpuscular Volume 97.1 fL (80-94); Mean Platelet Vol. 9.9 fl (6.2-12.0); Monocyte# 0.82 X10^3/uL; Monocyte% 11.4 % (0-10); NRBC Flagged by Analyzer 0 % (0-5); Neutrophil # 4.68 X10^3/uL (2.7-7.7); Neutrophil % 65.3 % (47-70); Platelet Count 195 K/mm3 (150-450); RBC Distribution Width CV 14.3 % (11.6-14.6); RBC Distribution Width SD 51.5 fl (35.1-43.9); Red Blood Count 4.16 M/mm3 (4.6-6.2); White Blood Count 7.2 K/mm3 (4.4-11.0)
[2021-08-24 16:12] LABS: ALB/GLOB Ratio 1.1 RATIO (0.9-2.4); AST(SGOT) 23 U/L (15-37); Alanine Aminotransfer ALT/SGPT 23 U/L (16-61); Albumin, Serum 3.6 g/dL (3.2-5.0); Alkaline Phosphatase 90 U/L (45-117); Anion Gap 5 (5-15); BUN 22 mg/dL (7-18); BUN/Creat Ratio 14.7 RATIO (10-20); Calcium,Total 8.9 mg/dL (8.5-10.1); Chloride 110 mmol/L (98-107); EST Glomerular Filtration Rate 48 mL/min (>60); Est Glom Filt Rate - Afr Amer 58 mL/min (>60); Globulin 3.4 g/dL (2.2-4.2); Glucose 90 mg/dL (74-106); Potassium 4.4 mmol/L (3.5-5.1); Sodium Level 140 mmol/L (136-145); T4 Free Direct 1.12 ng/dL (0.76-1.46); Thyroid Stim Hormone (TSH) 2.08 uIU/mL (0.358-3.74)
== END | disposition home or self-care (01) ==
LOC: MTLAB 12:03
PROVIDERS: PCP Family Medicine; Referring Provider Internal Medicine Rheumatology; Visit Provider Internal Medicine Rheumatology
DX: E03.9 Hypothyroidism, unspecified (principal); M46.90 Unspecified inflammatory spondylopathy, site unspecified; D50.9 Iron deficiency anemia, unspecified; R06.00 Dyspnea, unspecified; M17.0 Bilateral primary osteoarthritis of knee; M25.811 Other specified joint disorders, right shoulder; M25.812 Other specified joint disorders, left shoulder; M19.072 Primary osteoarthritis, left ankle and foot; M47.897 Other spondylosis, lumbosacral region; M96.1 Postlaminectomy syndrome, not elsewhere classified; I10 Essential (primary) hypertension; N20.0 Calculus of kidney; Z96.652 Presence of left artificial knee joint; Z79.899 Other long term (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
CPT/HCPCS: 36415; 80053; 84439; 84443; 85025

== ENCOUNTER 2021-10-05 07:00 | Day surgery (SDC) | payer MEDICARE, SELFPAY ==
[2021-10-05 07:39] VITALS: BP 152/87; PULSE 83; RESP 18; TEMP 36.8; O2SAT 99; BMI 32.2
[2021-10-05] MEDS: Lactated Ringers 1,000 ML 15 ML IV (07:50)
--- NOTE | 2021-10-05 08:26 | PCM.DC.SUM ---
Providers Primary Care Physician: Dr. Simon Willams MD Reason For Visit: RT MYRINGOTOMY TUBE Medications at Discharge Home Medications atorvastatin 40 mg tablet 40 mg PO QHS 12/18/12 omeprazole 20 mg capsule,delayed release 20 mg PO DAILY 12/18/12 albuterol sulfate 90 mcg/actuation aerosol inhaler (ProAir HFA) 2 puff inhalation Q6H PRN Sob &/Or Wheezing 07/07/17 nitroglycerin 0.4 mg sublingual tablet 0.4 mg sublingual Q5M PRN Chest Pain #90 tabs 07/13/17 levothyroxine 100 mcg tablet 100 mcg PO DAILY 05/30/18 tamsulosin 0.4 mg capsule 0.4 mg PO BID 05/30/18 aspirin 81 mg tablet,delayed release (Adult Low Dose Aspirin) 81 mg PO DAILY 05/25/19 fluticasone furoate 100 mcg-vilanterol 25 mcg/dose inhalation powder (Breo Ellipta) 1 inh inhalation DAILY 05/05/20 metoprolol succinate 25 mg tablet,extended release 24 hr 25 mg PO BID 10/16/20 duloxetine 30 mg capsule,delayed release 30 mg PO QHS 05/13/21 pramipexole 1 mg tablet 3 mg PO QHS 05/13/21 tramadol 50 mg tablet 50 mg PO BID PRN Pain 05/13/21 enalapril maleate 10 mg tablet 5 mg PO BID #90 tabs 06/22/21 Weight / BMI Weight Weight: 99 kg Body Mass Index (BMI) 32.2 D/C Instructions Discharge Diet: No restrictions Discharge Activity: Return to Normal Activity Additional Activity Instructions: Ear drops...5 drops each ear twice a day for 2 days (3 doses) Meaningful Use Info Meaningful Use Diagnoses (Choose all that apply): None applicable Discharge Plan Admission Attending Provider: Fortino Blackman Primary Care Provider: Simon Willams Discharge Orders/Prescriptions Prescriptions: No Action nitroglycerin 0.4 mg tablet, sublingual 0.4 mg SUBLINGUAL Q5M PRN (Reason: Chest Pain) Qty: 90 6RF albuterol sulfate [ProAir HFA] 90 mcg/actuation HFA aerosol inhaler 2 puff INHALATION Q6H PRN (Reason: Sob &/Or Wheezing) levothyroxine 100 mcg tablet 100 mcg PO DAILY aspirin [Adult Low Dose Aspirin] 81 mg tablet,delayed release (DR/EC) 81 mg PO DAILY Breo Ellipta 100-25 mcg/dose blister with device 1 inh INHALATION DAILY metoprolol succinate 25 mg tablet extended release 24 hr 25 mg PO BID tramadol 50 mg tablet 50 mg PO BID PRN (Reason: Pain) duloxetine 30 mg capsule,delayed release(DR/EC) 30 mg PO QHS atorvastatin 40 MG tablet 40 mg PO QHS Label Comments: cholesterol omeprazole 20 MG capsule 20 mg PO DAILY Label Comments: acid reflux tamsulosin 0.4 mg capsule 0.4 mg PO BID Label Comments: increase urine flow pramipexole 1 mg tablet 3 mg PO QHS enalapril maleate 10 mg tablet 5 mg PO BID Qty: 90 3RF Referrals / Follow Up: Simon Willams MD [Primary Care Provider] - Disposition Disposition (needs filled in before D/C Order can be placed): Home, Self Care
--- NOTE | 2021-10-05 08:44 | OP.PCM_ITS ---
Report of Operation Date of Procedure: 10/05/21 Pre-Operative Diagnosis: Right chronic serous otitis media Post-Operative Diagnosis: same Surgery/Procedure Performed:: Right myringotomy with tube Surgeon: Fortino Blackman Type of Anesthesia: General Anesthesiologist: Fab Lagos Estimated Blood Loss (mL): minimal Description of Procedure: The patient was taken to the operating room on 10/05/2021. The patient was placed in the supine position on the operating room table. The patient was given sufficient general anesthesia. The operating microscope was used throughout the entire case. A speculum was inserted into the patient's right ear. Cerumen was removed using a curette. The old tube was removed from the surface of the tympanic membrane. An incision was placed in the anterior inferior quadrant of the tympanic membrane. Fluid was suctioned from the middle ear space using a #5 suction. A collar button tube was placed without diffi culty. Antibiotic drops were instilled into the patient's ear. The patient was then awoken. They were brought to the recovery room in stable condition. Blood loss minimal replacement none. sponge needle and instrument counts correct at the end of the procedure.
[2021-10-05] MEDS: Ciprofloxacin 0.3% 2.5ml Bottle 1 DRP (08:45)
[2021-10-05 08:51] VITALS: BP 152/87; BP 159/74; PULSE 69; RESP 17; TEMP 36.8; O2SAT 95
[2021-10-05 08:55] VITALS: BP 151/77; BP 152/87; PULSE 69; RESP 16; O2SAT 94
[2021-10-05 09:00] VITALS: BP 152/87; BP 155/81; PULSE 70; RESP 16; O2SAT 92
[2021-10-05 09:05] VITALS: BP 152/87; BP 154/86; PULSE 70; RESP 16; O2SAT 94
[2021-10-05 09:15] VITALS: BP 152/83; BP 152/87; BP 163/89; PULSE 71; PULSE 72; RESP 16; TEMP 37; O2SAT 94; O2SAT 95
== END 2021-10-05 10:01 | disposition home or self-care (01) ==
LOC: SDC 07:01 → AC 07:02
PROVIDERS: PCP Family Medicine; Referring Provider Otolaryngology; Visit Provider Otolaryngology
PROC: (CPT 69421; principal; 2021-10-05 08:25)
DX: H65.21 Chronic serous otitis media, right ear (principal); J44.9 Chronic obstructive pulmonary disease, unspecified; I25.10 Atherosclerotic heart disease of native coronary artery without angina pectoris; I44.4 Left anterior fascicular block; I10 Essential (primary) hypertension; E78.00 Pure hypercholesterolemia, unspecified; E07.9 Disorder of thyroid, unspecified; M19.90 Unspecified osteoarthritis, unspecified site; N40.0 Benign prostatic hyperplasia without lower urinary tract symptoms; G25.81 Restless legs syndrome; Z95.5 Presence of coronary angioplasty implant and graft; Z79.82 Long term (current) use of aspirin; Z79.899 Other long term (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
CPT/HCPCS: 69421; 00126; J7120

== ENCOUNTER → 2021-11-09 | Outpatient (CLI) | payer MEDICARE, SELFPAY ==
--- NOTE | 2021-11-09 17:03 | RAD_ITS ---
EXAM: XR CHEST, 2 VIEWS CLINICAL INDICATION: SOB, Hx of large hernia TECHNIQUE: Frontal and lateral views of the chest. This report was created using [employer] report generation technology. COMPARISON: 11/08/2017 and 08/12/2018 FINDINGS: LUNGS AND PLEURAL SPACES: Unremarkable. No consolidation or edema. No pneumothorax. No effusion. HEART: Large hiatal hernia posterior to the heart, similar appearance to previous exams. MEDIASTINUM: Central airways and mediastinal contour are unremarkable. BONES/JOINTS: Degenerative changes of the spine. SOFT TISSUES: Unremarkable. RAD/Chest PA and Lateral IMPRESSION: 1. No acute cardiopulmonary abnormality. 2. Large hiatal hernia posterior to the heart, similar appearance to previous exams. Electronically Signed: Bal Arcos MD at 23:29 EDT ,
[2021-11-09 18:06] LABS: Absolute Lymphocyte Count 1.74 X10^3/uL (0.83-4.51); Absolute Neutrophil Count 3.9 X10^3/uL (2.0-7.7); Basophil# 0.05 X10^3/uL; Basophil% 0.8 % (0-1); Hematocrit 37.6 % (40-54); Hemoglobin 12.3 g/dL (13.0-16.5); Lymphocyte # 1.74 X10^3/ul (0.83-4.51); Lymphocyte % 26.2 % (19-41); Mean Corp Hgb Conc 32.7 g/dL (32-36); Mean Corpuscular Hgb 31.5 pg (27.0-32.0); Mean Corpuscular Volume 96.2 fL (80-94); Mean Platelet Vol. 9.7 fl (6.2-12.0); Monocyte# 0.75 X10^3/uL; Monocyte% 11.3 % (0-10); NRBC Flagged by Analyzer 0 % (0-5); Neutrophil # 3.88 X10^3/uL (2.7-7.7); Neutrophil % 58.5 % (47-70); Platelet Count 201 K/mm3 (150-450); RBC Distribution Width CV 14.1 % (11.6-14.6); RBC Distribution Width SD 50.1 fl (35.1-43.9); Red Blood Count 3.91 M/mm3 (4.6-6.2); White Blood Count 6.6 K/mm3 (4.4-11.0)
[2021-11-09 18:41] LABS: AST(SGOT) 22 U/L (15-37); Alanine Aminotransfer ALT/SGPT 21 U/L (16-61); Albumin, Serum 3.5 g/dL (3.2-5.0); Alkaline Phosphatase 90 U/L (45-117); Anion Gap 6 (5-15); BUN 20 mg/dL (7-18); BUN/Creat Ratio 14.2 RATIO (10-20); Calcium,Total 8.6 mg/dL (8.5-10.1); Chloride 111 mmol/L (98-107); Creatinine, Serum 1.41 mg/dL (0.70-1.30); EST Glomerular Filtration Rate 52 mL/min (>60); Est Glom Filt Rate - Afr Amer 63 mL/min (>60); Globulin 3.5 g/dL (2.2-4.2); Glucose 98 mg/dL (74-106); Sodium Level 142 mmol/L (136-145)
== END | disposition home or self-care (01) ==
LOC: MTLAB 16:57
PROVIDERS: Nurse Practitioner Family; PCP Family Medicine; Referring Provider Internal Medicine Rheumatology; Visit Provider Internal Medicine Rheumatology
DX: M46.90 Unspecified inflammatory spondylopathy, site unspecified (principal); M17.0 Bilateral primary osteoarthritis of knee; M25.811 Other specified joint disorders, right shoulder; M25.812 Other specified joint disorders, left shoulder; M19.072 Primary osteoarthritis, left ankle and foot; M47.897 Other spondylosis, lumbosacral region; I10 Essential (primary) hypertension; N20.0 Calculus of kidney; I70.90 Unspecified atherosclerosis; G47.33 Obstructive sleep apnea (adult) (pediatric); I87.2 Venous insufficiency (chronic) (peripheral); E03.9 Hypothyroidism, unspecified; M48.02 Spinal stenosis, cervical region; K44.9 Diaphragmatic hernia without obstruction or gangrene; R06.09 Other forms of dyspnea; Z98.1 Arthrodesis status; Z96.652 Presence of left artificial knee joint; Z79.899 Other long term (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; Z86.711 Personal history of pulmonary embolism
CPT/HCPCS: 36415; 71046; 80053; 85025

== ENCOUNTER → 2021-11-20 | Outpatient (CLI) | payer MEDICARE, SELFPAY ==
--- NOTE | 2021-11-20 11:10 | STRESSREP_ITS ---
Stress Test Report Date: 11-20-2021 Procedure: Pharmacologic stress nuclear imaging study Indications: Shortness of breath/dyspnea on exertion; CAD; PCI Consent: Per the patient Procedure: The patient underwent pharmacologic (Regadenoson 0.4mg ) evaluation with a peak heart rate of 86 beats per minute (60%predicted maximal heart rate) and a peak blood pressure of 122/70 mmHg. The baseline ECG demonstrated normal sinus rhythm; poor R wave progression. The peak pharmacologic ECG demonstrated no obvious ECG changes. There were no cardiac dysrhythmias pretest, during pharmacologic infusion, or recovery. There was no complaint of chest discomfort during pharmacologic infusion or recovery. The examination was discontinued secondary to completion of protocol. Impression: 1. Pharmacologic (Regadenoson) evaluation 2. Peak pharmacologic ECG with no obvious ECG changes. 3. There were no cardiac dysrhythmias pretest, during pharmacologic infusion, or recovery. 4. Nuclear images pending Myocardial perfusion imaging study: Technique: The patient was injected with 12.0 millicuries of technetium 99m Cardiolite and subsequently rest SPECT Cardiolite nuclear imaging was obtained in the horizontal long, vertical long, and short axis views. The patient underwent pharmacologic (Regadenoson) evaluation with a peak heart rate of 86 beats per minute (60% percent predicted maximal heart rate) and a peak blood pressure of 122/70 mmHg. The patient was injected with 34.6 millicuries of technetium 99m Cardiolite and subsequently stress SPECT Cardiolite nuclear imaging was obtained in the horizontal long, vertical long, and short axis views. A gated Cardiolite study at peak stress was obtained. Interpretation: Rest and stress SPECT Cardiolite nuclear imaging status post realignment, normalization, and attenuation correction demonstrate relative uniform tracer uptake and myocardial perfusion appearing within normal limits. There is end s ystolic thickening and brightening. The gated Cardiolite study demonstrates myocardial thickening and inward wall motion. The reported LVEF is 61%. Impression: 1. Rest and stress SPECT Cardiolite nuclear imaging demonstrate relative uniform tracer uptake and myocardial perfusion appearing within normal limits. 2. The gated Cardiolite study reports an LVEF of 61%. This note was generated with [employer] software. It may contain incorrect words, spelling, and punctuation that were not noted in checking the note before signing.
== END | disposition home or self-care (01) ==
LOC: CVS 06:57
PROVIDERS: PCP Family Medicine; Referring Provider Nurse Practitioner Family; Visit Provider Nurse Practitioner Family
DX: I25.10 Atherosclerotic heart disease of native coronary artery without angina pectoris (principal); Z95.5 Presence of coronary angioplasty implant and graft; R06.09 Other forms of dyspnea
CPT/HCPCS: 78452; 93017; A9500; A4216; J2785

== ENCOUNTER → 2021-12-28 | Outpatient (CLI) | payer MEDICARE, SELFPAY | END | disposition home or self-care (01) | LOC: LABSPEC 08:51 | PROVIDERS: PCP Family Medicine; Visit Provider Family Medicine | DX: N39.0 Urinary tract infection, site not specified (principal) | CPT/HCPCS: 87086 ==

== ENCOUNTER → 2022-04-06 | Outpatient (CLI) | payer MEDICARE, SELFPAY ==
[2022-04-06 18:02] LABS: Absolute Lymphocyte Count 1.23 X10^3/uL (0.83-4.51); Absolute Neutrophil Count 4.2 X10^3/uL (2.0-7.7); Basophil# 0.05 X10^3/uL; Basophil% 0.8 % (0-1); Eosinophil# 0.21 X10^3/uL; Eosinophils% 3.4 % (0-5); Hematocrit 34.8 % (40-54); Hemoglobin 10.7 g/dL (13.0-16.5); Lymphocyte # 1.23 X10^3/ul (0.83-4.51); Lymphocyte % 19.7 % (19-41); Mean Corp Hgb Conc 30.7 g/dL (32-36); Mean Corpuscular Hgb 29.2 pg (27.0-32.0); Mean Corpuscular Volume 95.1 fL (80-94); Mean Platelet Vol. 9.7 fl (6.2-12.0); Monocyte# 0.54 X10^3/uL; Monocyte% 8.7 % (0-10); NRBC Flagged by Analyzer 0 % (0-5); Neutrophil % 67.2 % (47-70); Platelet Count 196 K/mm3 (150-450); RBC Distribution Width CV 15.2 % (11.6-14.6); RBC Distribution Width SD 53.9 fl (35.1-43.9); Red Blood Count 3.66 M/mm3 (4.6-6.2); White Blood Count 6.2 K/mm3 (4.4-11.0)
[2022-04-06 18:26] LABS: Erythrocyte Sedimentation Rate 12 mm/hr (0-20)
[2022-04-06 18:52] LABS: Vitamin B12 298 pg/mL (211-911); Vitamin D,25 Hydroxy 13.2 ng/mL
[2022-04-06 19:07] LABS: AST(SGOT) 21 U/L (15-37); Alanine Aminotransfer ALT/SGPT 26 U/L (16-61); Albumin, Serum 3.4 g/dL (3.2-5.0); Alkaline Phosphatase 80 U/L (45-117); Anion Gap 7 (5-15); BUN 16 mg/dL (7-18); BUN/Creat Ratio 10.8 RATIO (10-20); Calcium,Total 8.6 mg/dL (8.5-10.1); Chloride 112 mmol/L (98-107); Creatinine, Serum 1.48 mg/dL (0.70-1.30); EST Glomerular Filtration Rate 49 mL/min (>60); Est Glom Filt Rate - Afr Amer 59 mL/min (>60); Ferritin 9 ng/mL (26-388); Globulin 3.4 g/dL (2.2-4.2); Glucose 93 mg/dL (74-106); Iron 30 ug/dL (65-175); Potassium 4.6 mmol/L (3.5-5.1); Protein, Total 6.8 g/dL (6.4-8.2); Sodium Level 144 mmol/L (136-145); Thyroid Stim Hormone (TSH) 2.61 uIU/mL (0.358-3.74)
[2022-04-06 19:30] LABS: Hemoglobin A1c 6.5 % (3.8-5.6)
== END | disposition home or self-care (01) ==
LOC: BFHLAB 15:38
PROVIDERS: PCP Family Medicine; Visit Provider Family Medicine
DX: R53.83 Other fatigue (principal); R73.01 Impaired fasting glucose; E55.9 Vitamin D deficiency, unspecified; D64.9 Anemia, unspecified
CPT/HCPCS: 36415; 80053; 82306; 82607; 82728; 83036; 83540; 84443; 85025; 85652

== ENCOUNTER → 2022-05-07 | Outpatient (CLI) | payer MEDICARE, SELFPAY ==
[2022-05-07 15:53] LABS: ALB/GLOB Ratio 1.2 RATIO (0.9-2.4); AST(SGOT) 20 U/L (15-37); Alanine Aminotransfer ALT/SGPT 21 U/L (16-61); Albumin, Serum 3.7 g/dL (3.2-5.0); Alkaline Phosphatase 88 U/L (45-117); Anion Gap 5 (5-15); BUN 17 mg/dL (7-18); BUN/Creat Ratio 10.5 RATIO (10-20); Calcium,Total 8.8 mg/dL (8.5-10.1); Chloride 113 mmol/L (98-107); Creatinine, Serum 1.62 mg/dL (0.70-1.30); EST Glomerular Filtration Rate 44 mL/min (>60); Est Glom Filt Rate - Afr Amer 53 mL/min (>60); Globulin 3.2 g/dL (2.2-4.2); Glucose 105 mg/dL (74-106); Potassium 4.7 mmol/L (3.5-5.1); Protein, Total 6.9 g/dL (6.4-8.2); Sodium Level 144 mmol/L (136-145)
[2022-05-07 15:54] LABS: Absolute Lymphocyte Count 1.53 X10^3/uL (0.83-4.51); Basophil# 0.05 X10^3/uL; Basophil% 0.8 % (0-1); Eosinophil# 0.18 X10^3/uL; Eosinophils% 2.8 % (0-5); Hematocrit 39.3 % (40-54); Hemoglobin 11.6 g/dL (13.0-16.5); Lymphocyte # 1.53 X10^3/ul (0.83-4.51); Lymphocyte % 23.6 % (19-41); Mean Corp Hgb Conc 29.5 g/dL (32-36); Mean Corpuscular Hgb 28.9 pg (27.0-32.0); Mean Platelet Vol. 10.3 fl (6.2-12.0); Monocyte# 0.68 X10^3/uL; Monocyte% 10.5 % (0-10); NRBC Flagged by Analyzer 0 % (0-5); Neutrophil # 4.02 X10^3/uL (2.7-7.7); Platelet Count 194 K/mm3 (150-450); RBC Distribution Width CV 15.9 % (11.6-14.6); RBC Distribution Width SD 56.9 fl (35.1-43.9); Red Blood Count 4.01 M/mm3 (4.6-6.2); White Blood Count 6.5 K/mm3 (4.4-11.0)
== END | disposition home or self-care (01) ==
LOC: BFHLAB 13:17
PROVIDERS: PCP Family Medicine; Visit Provider Internal Medicine Rheumatology
DX: M46.90 Unspecified inflammatory spondylopathy, site unspecified (principal); Z79.899 Other long term (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; M19.072 Primary osteoarthritis, left ankle and foot; M47.897 Other spondylosis, lumbosacral region; I10 Essential (primary) hypertension; N20.0 Calculus of kidney; M48.02 Spinal stenosis, cervical region
CPT/HCPCS: 36415; 80053; 85025

== ENCOUNTER → 2022-05-18 | Outpatient (CLI) | payer MEDICARE, SELFPAY ==
[2022-05-18 16:30] LABS: AST(SGOT) 18 U/L (15-37); Alanine Aminotransfer ALT/SGPT 21 U/L (16-61); Albumin, Serum 3.8 g/dL (3.2-5.0); Alkaline Phosphatase 92 U/L (45-117); Bilirubin, Direct 0.13 mg/dL (0.00-0.30); Cholesterol 125 mg/dL (200); Globulin 3.2 g/dL (2.2-4.2); High Density Lipoprotein 48 mg/dL; Triglycerides 99 mg/dL; Very Low Density Lipoprotein 20 mg/dL (5-40)
== END | disposition home or self-care (01) ==
LOC: MTLAB 12:39
PROVIDERS: PCP Family Medicine; Referring Provider Internal Medicine Cardiovascular Disease; Visit Provider Internal Medicine Cardiovascular Disease
DX: J02.9 Acute pharyngitis, unspecified (principal); I25.10 Atherosclerotic heart disease of native coronary artery without angina pectoris; E78.5 Hyperlipidemia, unspecified
CPT/HCPCS: 36415; 80061; 80076; 87635; U0003; U0005

== ENCOUNTER 2022-06-11 15:00 | Outpatient (RCR) | payer MEDICARE, SELFPAY ==
--- NOTE | 2022-05-14 10:01 | HP.PTEVAL ---
Patient's Visit Information IMAN ANDREA is a 76 year old M referred to Physical Therapy by Dr. Javier Santos MD with a diagnosis of gait problems. Date of Evaluation: 05/14/22 Physical Therapist: Alonso Pineda, ORA, OCS, CSCS - Visit Plan Frequency: 3x /Week Duration: 4-6 Weeks Plan: 3x/.week for 4-6 weeks ...please work on and teach for I machine base LE and postural/UE strength ex as well as ankle strength for HEP. Will need pics and list of all and planning on joining as [employer] member. Include gait training and balance working on VOR, ec exercises and weight shifting. - Subjective Has had 2 LB surgeries 6-8 yrs ago with rehab. Did not continue appropriate workouts. had fusion. Had scoliosis at that time. Leaned L and still does. Did not do enough after surgery. Developed asthma which has caused breathing problems. My biggest problem is balance in walking. Feet are numb but not sure why. No DM. No regular dizzyness or spinning. Uses cane to get around all the time. been told he should use a walker. Has a wh walker at home. No recent falls. Dr. Santos sent over. sees him for back pain into leg. Shots keep it in check as it was tough to get around prior. Shots are every 4 months. No regular exercises. Lives alone in one story house with basement with rail and gets up and down OK with rail. Basic ADLs are Ok. Some girls come in and clean on mondays. Hobbies: golf, not since last summer. Balance keeps him from doing it. Spends day: Little things around house, fix things. paperwork. Feels weak in upper body, has spinal stenosis. - Pain R LB and leg Pain Intensity (Out of 10): 0 Pain Intensity Range: 0, 3 - Objective 99 sO2 after steps but SOB. 85 HR after steps. Cane in L UE mod i walking back to PT, SOB . Transfers using UE I chair. leans L with walking whcih is normal for him over the last number of years. R DF weak, had drop foot since knee surgery a little bit. reflexes 0/3 achilles, 1/3 patella, no clonus. sensation from mid calf down B is mostly absent. strength in hips 4- and knees 4+ and ankles DF R 3, L 3+, PF 3+, ev/inv 4- B. coordination is poor in heel tap, unable to toe tap, OK in heel to osman. LE AROM WFL, except R ankle -4 AROM Df and L to 0, Very tight in gastroc and soleus, max tight in quad, max tight in HS with -50 90 /90 test B. UE strength 3+ in shoulder elevation B and rotations. AROM UE WFL. elbow and wrist strength 4+. Able to asend and descend steps mod I with rail reciprocally, very tired adn SOB at top, needed a rest. Overall patient is in poor shape and neuropathy is a big part of balance problem. - Balance/Special Test Scores Functional Gait Assessment Score: 23 % Disability: 23.3400 Lower Extremity Functional Score: 26 - Goals Goal 1:: Pt I in appropriate balance and strength ex for ankles, LE , core and UE in gym to continue as [employer] member. Goal Time Frame: 4-6 Weeks Goal 2:: pt feel 50% better in mobiliity and balance Goal Time Frame: 4-6 Weeks Goal 3:: FGA score 25/30 Goal Time Frame: 4-6 Weeks Goal 4:: LEFS score 45 Goal Time Frame: 4-6 Weeks - Rehabilitation Potential Physical Therapy Diagnosis: imablance due to neuropathy and patient very sedentary and weak. Rehabilitation Potential: Fair - Anticipated Interventions Patient/Client Instruction: Educate patient on: Condition, Risk Factors For the Purpose of:: To increase tolerance to activity/condition/position, To improve balance, To improve safety with gait Therapeutic Exercise to Include: Strength training, Balance training, Flexibilty training, Gait and locomotor training, Passive ROM, Active ROM For the Purpose of:: To decrease pain, To increase ROM, To improve nutrient delivery to tissue, To increase oxygenation perfusion, To improve muscle performance and motor function, To increase tolerance to activity/condition/position, To improve gait and locomotor functions, To improve health of tissue, To improve safety Thank you for the opportunity to evaluate your patient. For Medicare and Medicare HMO plans, please review the plan of care and approve it. It will need to be FAXED BACK to us at [phone] for Medicare purposes. For Medicare only, by signing this I certify the plan of care. Please let me know if there are questions or concerns regarding this plan of care. Physician Signature: Date:
--- NOTE | 2022-06-11 15:58 | HP.PTDCSUM ---
It has been my pleasure to treat IMAN ANDREA referred by Dr. Javier Santos MD, with the diagnosis of gait problems for a total of 10 visit(s). Discharge Date: 06/11/22 Please see the following information for a summary of their discharge status. Subjective: Feels good about last visit. balance is slightly better but feels stronger. Activities are ramping up and feels better with them/more energy. using cane all the time. Pain is fine except at night, R leg can flare up if he overdoes it or sleeps wrong. R LB and leg Pain Intensity (Out of 10): 9 % Improvement: 30 Objective/Function: Walking up taller for longer, still leans L but improved, still limited mostly by SOB. FGA is about the same\ROmberg eo is easy adn ec is wobbly but able 30 seconds. neuropathy and comorbidities effecting balance improvement. Pt wishes to continue on his own in the gym and with HEP for balance at counter.Pt to continue using cane for safety. Goal 1:: Pt I in appropriate balance and strength ex for ankles, LE , core and UE in gym to continue as [employer] member. Goal Progress: Goal Met Goal 2:: pt feel 50% better in mobiliity and balance Goal Progress: 30% Goal 3:: FGA score 25/30 Goal Progress: Not Progressing Goal 4:: LEFS score 45 Goal Progress: Progressing Plan: d/c to gym program If there are questions or concerns regarding this patient's physical therapy, please feel free to call me at [phone]. Thank you for the referral of this patient. Sincerely, Alonso Pineda, DPT, OCS, CSCS Balance/Gait/Functional tests - Balance/Special Test Scores Functional Gait Assessment Score: 22 % Disability: 26.6700 Lower Extremity Functional Score: 38
== END 2022-06-11 19:00 | disposition home or self-care (01) ==
LOC: PT 15:00
PROVIDERS: PCP Family Medicine; Referring Provider Anesthesiology Pain Medicine; Visit Provider Anesthesiology Pain Medicine
DX: R26.9 Unspecified abnormalities of gait and mobility (principal)
CPT/HCPCS: 97110; 97162; 97164

== ENCOUNTER → 2022-07-29 | Outpatient (CLI) | payer MEDICARE, SELFPAY ==
[2022-07-29 19:17] LABS: Hemoglobin A1c 6.2 % (3.8-5.6)
[2022-08-03 00:06] LABS: Acetylcholine Receptor Binding < 0.03 nmol/L (0.00-0.24); Lyme IgG P18 Ab Absent (.); Lyme IgG P23 Ab Absent (.); Lyme IgG P28 Ab Absent (.); Lyme IgG P30 Ab Absent (.); Lyme IgG P39 Ab Absent (.); Lyme IgG P41 Ab Absent (.); Lyme IgG P45 Ab Absent (.); Lyme IgG P58 Ab Absent (.); Lyme IgG P66 Ab Absent (.); Lyme IgG P93 Ab Absent (.); Lyme IgG WB Interpretation Negative (.); Lyme IgM P23 Ab Absent (.); Lyme IgM P39 Ab Absent (.); Lyme IgM P41 Ab Absent (.); Lyme IgM WB Interpretation Negative (.)
== END | disposition home or self-care (01) ==
PROVIDERS: PCP Family Medicine; Referring Provider Family Medicine; Visit Provider Family Medicine
DX: E11.9 Type 2 diabetes mellitus without complications (principal); E55.9 Vitamin D deficiency, unspecified; R53.83 Other fatigue; R53.1 Weakness; R06.00 Dyspnea, unspecified; W57.XXXA Bitten or stung by nonvenomous insect and other nonvenomous arthropods, initial encounter
CPT/HCPCS: 36415; 83036; 84238; 86617

== ENCOUNTER → 2022-08-31 | Outpatient (CLI) | payer MEDICARE, SELFPAY ==
[2022-08-31 17:54] LABS: Albumin, Serum 3.4 g/dL (3.2-5.0); BUN 20 mg/dL (7-18); Calcium,Total 8.3 mg/dL (8.5-10.1); Chloride 114 mmol/L (98-107); Creatinine, Serum 1.43 mg/dL (0.70-1.30); EST Glomerular Filtration Rate 51 mL/min (>60); Est Glom Filt Rate - Afr Amer 61 mL/min (>60); Glucose 102 mg/dL (74-106); Phosphorus 3.1 mg/dL (2.5-4.9); Potassium 4.1 mmol/L (3.5-5.1); Sodium Level 143 mmol/L (136-145)
== END | disposition home or self-care (01) ==
LOC: MTLAB 15:29
PROVIDERS: PCP Family Medicine; Referring Provider Internal Medicine Nephrology; Visit Provider Internal Medicine Nephrology
DX: N17.9 Acute kidney failure, unspecified (principal)
CPT/HCPCS: 36415; 80069

== ENCOUNTER 2022-09-28 06:33 | Day surgery (SDC) | payer MEDICARE, SELFPAY ==
[2022-09-28] VITALS (7 sets, daily range): BP systolic 122–173; BP diastolic 67–87; PULSE 71–85; RESP 18–20; TEMP 36.1–36.9; O2SAT 95–99; BMI 31.7
[2022-09-28] MEDS: Lactated Ringers 1,000 ML 15 ML IV (07:30)
--- NOTE | 2022-09-28 07:30 | COLBX_PTH ---
PATIENT: IMAN ANDREA LOC: EN U#:[id number] AGE/SX: 77/M ROOM: RE09/28/[address]: Dr. Isaiah Freire MD : 1945 BED: DIS: 09/28/2022 SPEC #: [id number] RECD: 09/28/22 14:27 STATUS: GEOFF YARA #: [id number] LIAM: 09/28/22 07:[address]: Isaiah Freire DEPT: SURGICAL PATHOLOGY RECD BY: Maria L Collazo ENTERED: 09/29/22 10:25 SP TYPE: COLON BX OTHR DR: Dr. Waqar Wright DO Tissues: A - Transverse colon B - Sigmoid colon biopsy C - Sigmoid colon biopsy Procedures: Surgery Specimen Level IV HEADER OPERATION: Colonoscopy biopsy, polypectomy PRE-OP DIAGNOSIS: Dysphagia, history of colonic polyps TISSUE SUBMITTED: A. Mid transverse biopsy, B. Proximal sigmoid polyp, C. Mid sigmoid polyp MICROSCOPIC DIAGNOSIS A. Mid transverse colon, biopsy: Tubular adenoma. B. Proximal sigmoid polyp, polypectomy: Fragments of tubular adenoma. C. Mid sigmoid polyp, polypectomy: Tubular adenoma. SJ: 09/30/2022 MICROSCOPIC DESCRIPTION Slides are reviewed. GROSS DESCRIPTION A. Received is one container labeled with the patient name and designated mid transverse. The specimen consists of two irregular fragments of light [place]aver[place] soft tissue that in aggregate measure 0.8 x 0.4 x 0.1 cm. The specimen is totally submitted in one cassette. B. Received is one container labeled with the patient name and designated proximal sigmoid polyp. The specimen consists of multiple irregular fragments of light [place]aver[place] soft tissue that in aggregate measure 1.5 x 0.4 x 0.1 cm. The specimen is totally submitted in one cassette. C. Received is one container labeled with the patient name and designated mid sigmoid polyp. The specimen consists of two irregular fragments of light [place]avera soft tissue that in aggregate measure 0.6 x 0.5 x 0.3 cm and 0.2 x 0.2 x 0.1 cm. The specimen is totally submitted in one cassette. / KYREE:yahir 09/29/22 TC:1 CPT:95928 x3
--- NOTE | 2022-09-28 07:42 | PCM.HP.BLA ---
History and Physical Date of Admission: 09/28/22 Visit Reasons: 5 YEAR RECALL COLONOSCOPY Chief Complaint: 5 year colonoscopy Is patient in pain?: No Allergies Antihistamines - Ethylenediamine Adverse Reaction (Verified 09/10/22 13:11) Other Medications atorvastatin 40 mg tablet 40 mg PO QHS 12/18/12 [History Confirmed 09/10/22] omeprazole 20 mg capsule,delayed release 20 mg PO DAILY 12/18/12 [History Confirmed 09/10/22] albuterol sulfate 90 mcg/actuation aerosol inhaler (ProAir HFA) 2 puff inhalation Q6H PRN Sob &/Or Wheezing 07/07/17 [History Confirmed 09/10/22] nitroglycerin 0.4 mg sublingual tablet 0.4 mg sublingual Q5M PRN Chest Pain #90 tabs 07/13/17 [Rx Confirmed 09/10/22] levothyroxine 100 mcg tablet 100 mcg PO DAILY 05/30/18 [History Confirmed 09/10/22] tamsulosin 0.4 mg capsule 0.4 mg PO BID 05/30/18 [History Confirmed 09/10/22] aspirin 81 mg tablet,delayed release (Adult Low Dose Aspirin) 81 mg PO DAILY 05/25/19 [History Confirmed 09/10/22] fluticasone furoate 100 mcg-vilanterol 25 mcg/dose inhalation powder (Breo Ellipta) 1 inh inhalation DAILY 05/05/20 [History Confirmed 09/10/22] metoprolol succinate 25 mg tablet,extended release 24 hr 25 mg PO BID 10/16/20 [History Confirmed 09/10/22] pramipexole 1 mg tablet 3 mg PO QHS 05/13/21 [History Confirmed 09/10/22] enalapril maleate 10 mg tablet 5 mg PO BID #90 tabs 06/22/21 [Rx Confirmed 09/10/22] hydroxychloroquine 200 mg tablet 200 mg PO BID 11/05/21 [History Confirmed 09/10/22] furosemide 40 mg tablet (Lasix) 40 mg PO .PRN 02/02/22 [History Confirmed 09/10/22] cholecalciferol (vitamin D3) 25 mcg (1,000 unit) tablet 25 mcg PO DAILY 05/13/22 [History Confirmed 09/10/22] cyanocobalamin (vitamin B-12) 1,000 mcg/mL injection kit 100 mcg IM QMONTH 05/13/22 [History Confirmed 09/10/22] ferrous sulfate 325 mg (65 mg iron) tablet 325 mg PO DAILY 05/13/22 [History Confirmed 09/10/22] finasteride 5 mg tablet 5 mg PO DAILY 05/13/22 [History Confirmed 09/10/22] latanoprost 0.005 % eye drops 1 drp ophthalmic (eye) QPM 05/13/22 [History Confirmed 09/10/22] [facility] Medical History Ambulates with cane Anemia Anxiety Arthritis Asthma Atherosclerosis of [place] coronary artery of [place] heart without angina pectoris Back pain BPH (benign prostatic hyperplasia) Cardiology follow-up encounter Chronic serous otitis media of right ear COPD (chronic obstructive pulmonary disease) CPAP (continuous positive airway pressure) dependence Depression Diabetes mellitus Dysphagia Essential (primary) hypertension Gastric reflux Hiatal hernia High cholesterol History of echocardiogram History of edema History of hiatal hernia History of kidney stones History of pain when walking History of stress test Hyperlipidemia Nephrolithiasis RENALDO (obstructive sleep apnea) Presence of stent in coronary artery (~09/21/11) Pulmonary embolism Restless legs Rheumatoid arthritis Shortness of breath on exertion Sleep apnea Thyroid disease Wears glasses Surgical History History of back surgery (~04/19/17) History of back surgery History of cardiac catheterization History of cholecystectomy History of cystoscopy History of esophagogastroduodenoscopy (EGD) History of total left knee replacement History of total right knee replacement (TKR) (~03/17/16) Hx of appendectomy Hx of bilateral cataract extraction Hx of colonoscopy Hx of right knee surgery Presence of coronary angioplasty implant and graft (~09/21/11) Family History Father CAD (coronary artery disease)Mother CAD (coronary artery disease) Breast cancer Colon cancer DiabetesBrother CAD (coronary artery disease) CVA (cerebral vascular accident) Diabetes Social History Smoking Status: Never smoker alcohol intake: never substance use type: does not use caffeine: Yes Type: carbonated beverages Number of servings: 1 what type of physical activity do you participate in: none seatbelt use: always do you feel safe at home: Yes HPI HPI HPI: 77-year-old gentleman. I have most recently seen him in the office on October 16, 2020. He presented because of esophageal dysphagia. He has a known hiatal hernia and reflux disease. He was being treated with omeprazole 20 mg daily. He had previous upper endoscopy July 15, 2017 demonstrating a hiatal hernia chronic gastritis and esophageal biopsies were without signs of inflammation. My thought was that he had oral pharyngeal dysphagia at that time secondary to neurologic compromise for cervical spinal stenosis. The upper endoscopy 2017 did not demonstrate any stricturing. I recommended speech therapy evaluation and not a repeat upper endoscopy at that setting. November 03, 2020 he had a modified barium swallow. There was felt to be mild defects and bolus control in transport. Patient also had piecemeal deglutition. He has marked decreased airway closure due to decreased laryngeal elevation and anterior hyoid excursion. He had laryngeal penetration of thin liquids. A prominent cricopharyngeal bar was located at the C5 level. Did not seem to have impact on upper esophageal sphincter opening or pharyngeal motility. Recommendations the patient were made. His most recent colonoscopy was also on July 15, 2017. Small sessile polyp in the distal transverse colon. Extensive descending and sigmoid diverticulosis. Pathology of the polyp demonstrated fragments of tubular adenoma. Follow-up at 5 years offered. The patient reminds me today that both his mother and younger brother have had colon cancer He is slowing down. Uses a cane but he thinks he might have to invest in a walker. He still enjoys going to the [employer]. He denies bright red blood per rectum or melena. ROS General General: Yes weight change and fatigue; No appetite, colon cancer, breast cancer or weakness HEENT HEENT: Yes eye surgery; No difficulty swallowing, eye injury, swollen glands or hoarseness Endo Endocrine: No thyroid disease, diabetes mellitus, thyroid cancer, Hair loss, heat intolerance or cold intolerance Skin Skin: No rash or changing moles Musc Musculoskeletal: Yes back problems, arthritis and rheumatoid arthritis; No gout or joint pain Cardio Cardiovascular: Yes high blood pressure and heart stent; No murmur, pacemaker, heart disease, atrial fibrillation, heart attack, palpitations, shortness of breat with exertion or chest pain Psych Psychiatric: Yes depression and anxiety; No hearing voices Resp Respiratory: Yes shortness of breath, Yes sleep apnea, No cough, No COPD, Yes asthma, No emphysema and No wheezing Gastro Gastrointestinal: No abdominal pain, No nausea or vomiting, No diarrhea, No constipation, No blood in stool, Yes acid reflux, No hemorrhoids, No ulcers, No gallbladder problem and No black,tarry stools Redd Hematologic: No blood thinners, No blood disorders, No bleeding, No anemia and Yes blood clots Neuro Neurologic: No system reviewed and no additional complaints, except as documented, No as per HPI, No abnormal gait, No abnormal hearing, No abnormal movements, No abnormal speech, No behavioral changes, No burning sensations, No confusion, No convulsions, No disequilibrium, No dizziness, No localized weakness, No frequent falls, No headache(s), No lack of coordination, No loss of vision, No memory loss, Yes numbness, No other visual disturbances, No radicular pain, No restless legs, No sensory deficit, No syncope, Yes tingling, No tremor(s), No weakness and No other Exam Const General: cooperative, comfortable and no acute distress [facility] Head: normal to inspection Eyes General: appearance normal, both eyes and all related structures Neck Neck: normal visual inspection Chest Chest palpation & inspection: normal inspection of the chest Resp Effort & Inspection: normal respiratory effort Auscultation: clear to auscultation bilaterally Cardio Rate: regular rate Rhythm: regular rhythm GI Inspection: normal to inspection Palpation: soft and no hepatosplenomegaly Skin General: no rashes or lesions noted Neuro General: patient alert, patient awake and patient oriented x3 Extrem General: no calf tenderness Psych Appearance: grossly normal Assessment and Plan Assessment and Plan (1) Dysphagia: Status: Acute Qualifiers: Dysphagia type: oropharyngeal phase Qualified Code(s): R13.12 - Dysphagia, oropharyngeal phase (2) Personal history of colonic polyps: Status: Acute Plan: I recommended the patient a colonoscopy with possible biopsy or polypectomy as indicated. He is not complaining of any dysphagia acute symptoms at the moment. Review of his laboratory demonstrates a slightly low hemoglobin 11.6 but he does have chronic kidney disease. He did okay with a MiraLAX prep recently previously. He is aware of the technique, benefit, risk, alternatives. Although he is slowing down he is still enjoying the quality of life. I appreciate the ongoing opportunity of assisting with the surgical care. Copy: Dr. Waqar Freire M.D., F.A.C.S I have examined the patient and the H&P has been reviewed. There are no clinical changes since date of exam. Isaiah Freire M.D., F.A.C.S.
--- NOTE | 2022-09-28 08:48 | OP.COLON_ITS ---
Patient Name: Venancio Jesus Procedure Date: 09/28/2022 7:40 AM Date of : 1945 Age: 77 Procedure: Colonoscopy Indications: High risk colon cancer surveillance: Personal history of colonic polyps Providers: Isaiah Freire MD Medicines: See the Anesthesia note for documentation of the administered medications Patient Profile: Last Colonoscopy: June 2017. Complications: No immediate complications. Procedure: Pre-Anesthesia Assessment: - Prior to the procedure, a History and Physical was performed, and patient medications and allergies were reviewed. The patient's tolerance of previous anesthesia was also reviewed. The risks and benefits of the procedure and the sedation options and risks were discussed with the patient. All questions were answered, and informed consent was obtained. Prior Anticoagulants: The patient has taken no previous anticoagulant or antiplatelet agents. ASA Grade Assessment: III - A patient with severe systemic disease. After reviewing the risks and benefits, the patient was deemed in satisfactory condition to undergo the procedure. After I obtained informed consent, the scope was passed under direct vision. Throughout the procedure, the patient's blood pressure, pulse, and oxygen saturations were monitored continuously. The colonoscope was introduced through the anus and advanced to the cecum, identified by appendiceal orifice and ileocecal valve. The colonoscopy was performed with moderate difficulty due to the patient's position intolerance. The patient tolerated the procedure fairly well. The quality of the bowel preparation was good. Scope In: 8:08:20 AM Scope Withdrawal Time 0 hours 29 minutes 43 seconds Scope Out: 8:41:38 AM Total Procedure Duration Time 0 hours 33 minutes 18 seconds Findings: The digital rectal exam findings include non-thrombosed external hemorrhoids, non-thrombosed internal hemorrhoids and internal hemorrhoids that prolapse with straining, but spontaneously regress to the resting position (Grade II). A 4 mm polyp was found in the mid transverse colon. The polyp was sessile. The polyp was removed with a cold biopsy forceps. Resection and retrieval were complete. A 5 mm polyp was found in the proximal sigmoid colon. The polyp was sessile. The polyp was removed with a cold biopsy forceps. Resection and retrieval were complete. A 7 mm polyp was found in the mid sigmoid colon. The polyp was sessile. The polyp was removed with a cold snare. Resection and retrieval were complete. Multiple diverticula were found in the sigmoid colon and descending colon. Impression: - Non-thrombosed external hemorrhoids, non-thrombosed internal hemorrhoids and internal hemorrhoids that prolapse with straining, but spontaneously regress to the resting position (Grade II) found on digital rectal exam. - One 4 mm polyp in the mid transverse colon, removed with a cold biopsy forceps. Resected and retrieved. - One 5 mm polyp in the proximal sigmoid colon, removed with a cold biopsy forceps. Resected and retrieved. - One 7 mm polyp in the mid sigmoid colon, removed with a cold snare. Resected and retrieved. - Diverticulosis in the sigmoid colon and in the descending colon. Recommendation: - Discharge patient to home. - Resume previous diet. - Continue present medications. - Repeat colonoscopy in 5 years for surveillance based on pathology results. - Telephone my office for pathology results in 1 week. Procedure Code(s): --- Professional --- 56902, Colonoscopy, flexible; with removal of tumor(s), polyp(s), or other lesion(s) by snare technique 73362, 59, Colonoscopy, flexible; with biopsy, single or multiple Diagnosis Code(s): --- Professional --- Z86.010, Personal history of colonic polyps K64.1, Second degree hemorrhoids K64.4, Residual hemorrhoidal skin tags D12.3, Benign neoplasm of transverse colon (hepatic flexure or splenic flexure) D12.5, Benign neoplasm of sigmoid colon K57.30, Diverticulosis of large intestine without perforation or abscess without bleeding CPT copyright 2017 [employer]. All rights reserved. The codes documented in this report are preliminary and upon sales operations coordinator review may be revised to meet current compliance requirements. Isaiah Freire MD 09/28/2022 8:48:03 AM This report has been signed electronically. Number of Addenda: 0 Note Initiated On: 09/28/2022 7:40 AM
--- NOTE | 2022-09-28 08:49 | OP.CCLET_ITS ---
09/28/2022 Waqar Wright [address] [place] [address] Re : Colonoscopy procedure for Venancio Jesus Dear Dr. Wright This procedure was performed on Wednesday, September 28, 2022. My impressions and recommendations are as follows: Impressions : - Non-thrombosed external hemorrhoids, non-thrombosed internal hemorrhoids and internal hemorrhoids that prolapse with straining, but spontaneously regress to the resting position (Grade II) found on digital rectal exam. - One 4 mm polyp in the mid transverse colon, removed with a cold biopsy forceps. Resected and retrieved. - One 5 mm polyp in the proximal sigmoid colon, removed with a cold biopsy forceps. Resected and retrieved. - One 7 mm polyp in the mid sigmoid colon, removed with a cold snare. Resected and retrieved. - Diverticulosis in the sigmoid colon and in the descending colon. Recommendations : - Discharge patient to home. - Resume previous diet. - Continue present medications. - Repeat colonoscopy in 5 years for surveillance based on pathology results. - Telephone my office for pathology results in 1 week. My findings are described in the full procedure note, which is enclosed. If I can be of further assistance, please feel free to contact me at Doctor phone number(s): Work: . Sincerely, Isaiah Freire MD 09/28/2022 8:48:03 AM This report has been signed electronically.
[2022-09-28] MEDS: Ipratropium/Albuterol Sulfate 3 ML AMPUL.NEB INHALATION (09:05)
== END 2022-09-28 10:18 | disposition home or self-care (01) ==
LOC: EN 06:40 → AC 07:26
PROVIDERS: PCP Family Medicine; Referring Provider Family Medicine; Visit Provider Surgery
PROC: 0DJD8ZZ Inspection of Lower Intestinal Tract, Via Natural or Artificial Opening Endoscopic (ICD-10-PCS; CPT 45378; principal; 2022-09-28 07:25)
DX: Z12.11 Encounter for screening for malignant neoplasm of colon (principal); J44.9 Chronic obstructive pulmonary disease, unspecified; D12.3 Benign neoplasm of transverse colon; D12.5 Benign neoplasm of sigmoid colon; K64.1 Second degree hemorrhoids; K64.4 Residual hemorrhoidal skin tags; K57.30 Diverticulosis of large intestine without perforation or abscess without bleeding; K44.9 Diaphragmatic hernia without obstruction or gangrene; K21.9 Gastro-esophageal reflux disease without esophagitis; I25.10 Atherosclerotic heart disease of native coronary artery without angina pectoris; I10 Essential (primary) hypertension; E78.00 Pure hypercholesterolemia, unspecified; E07.9 Disorder of thyroid, unspecified; R13.12 Dysphagia, oropharyngeal phase; Z95.5 Presence of coronary angioplasty implant and graft; Z79.82 Long term (current) use of aspirin; Z79.899 Other long term (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; Z86.010 Personal history of colon polyps; Z80.0 Family history of malignant neoplasm of digestive organs
CPT/HCPCS: 45380; 45385; 88305; 94640; J7120

== ENCOUNTER → 2022-10-19 | Outpatient (CLI) | payer MEDICARE, SELFPAY ==
[2022-10-19 17:45] LABS: Absolute Lymphocyte Count 1.05 X10^3/uL (0.83-4.51); Absolute Neutrophil Count 4.7 X10^3/uL (2.0-7.7); Basophil# 0.03 X10^3/uL; Basophil% 0.5 % (0-1); Eosinophil# 0.08 X10^3/uL; Eosinophils% 1.2 % (0-5); Hematocrit 44.3 % (40-54); Hemoglobin 14.3 g/dL (13.0-16.5); Lymphocyte # 1.05 X10^3/ul (0.83-4.51); Lymphocyte % 15.9 % (19-41); Mean Corp Hgb Conc 32.3 g/dL (32-36); Mean Corpuscular Hgb 32.3 pg (27.0-32.0); Mean Platelet Vol. 10.2 fl (6.2-12.0); Monocyte# 0.73 X10^3/uL; Monocyte% 11.1 % (0-10); NRBC Flagged by Analyzer 0 % (0-5); Neutrophil # 4.68 X10^3/uL (2.7-7.7); Neutrophil % 70.8 % (47-70); Platelet Count 170 K/mm3 (150-450); RBC Distribution Width CV 14.6 % (11.6-14.6); RBC Distribution Width SD 54.7 fl (35.1-43.9); Red Blood Count 4.43 M/mm3 (4.6-6.2); White Blood Count 6.6 K/mm3 (4.4-11.0)
[2022-10-19 18:21] LABS: ALB/GLOB Ratio 1.1 RATIO (0.9-2.4); AST(SGOT) 19 U/L (15-37); Alanine Aminotransfer ALT/SGPT 23 U/L (16-61); Albumin, Serum 3.6 g/dL (3.2-5.0); Alkaline Phosphatase 93 U/L (45-117); Anion Gap 4 (5-15); BUN 14 mg/dL (7-18); BUN/Creat Ratio 10.2 RATIO (10-20); Calcium,Total 8.9 mg/dL (8.5-10.1); Chloride 112 mmol/L (98-107); Creatinine, Serum 1.37 mg/dL (0.70-1.30); EST Glomerular Filtration Rate 53 mL/min (>60); Est Glom Filt Rate - Afr Amer 64 mL/min (>60); Globulin 3.2 g/dL (2.2-4.2); Glucose 111 mg/dL (74-106); Potassium 3.8 mmol/L (3.5-5.1); Protein, Total 6.8 g/dL (6.4-8.2); Sodium Level 141 mmol/L (136-145)
== END | disposition home or self-care (01) ==
LOC: BFHLAB 14:42
PROVIDERS: PCP Family Medicine; Referring Provider Internal Medicine Rheumatology; Visit Provider Internal Medicine Rheumatology
DX: M46.90 Unspecified inflammatory spondylopathy, site unspecified (principal); Z79.899 Other long term (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
CPT/HCPCS: 36415; 80053; 85025

== ENCOUNTER → 2022-11-26 | Outpatient (CLI) | payer MEDICARE, SELFPAY ==
[2022-11-26 17:37] LABS: Absolute Lymphocyte Count 1.68 X10^3/uL (0.83-4.51); Absolute Neutrophil Count 5.7 X10^3/uL (2.0-7.7); Basophil# 0.03 X10^3/uL; Basophil% 0.4 % (0-1); Eosinophil# 0.09 X10^3/uL; Eosinophils% 1.1 % (0-5); Hematocrit 45.6 % (40-54); Hemoglobin 14.6 g/dL (13.0-16.5); Lymphocyte # 1.68 X10^3/ul (0.83-4.51); Lymphocyte % 20.6 % (19-41); Mean Platelet Vol. 9.9 fl (6.2-12.0); Monocyte# 0.65 X10^3/uL; NRBC Flagged by Analyzer 0 % (0-5); Neutrophil # 5.67 X10^3/uL (2.7-7.7); Neutrophil % 69.7 % (47-70); Platelet Count 171 K/mm3 (150-450); RBC Distribution Width CV 14.3 % (11.6-14.6); Red Blood Count 4.56 M/mm3 (4.6-6.2); White Blood Count 8.1 K/mm3 (4.4-11.0)
[2022-11-26 18:14] LABS: Anion Gap 7 (5-15); BUN 20 mg/dL (7-18); BUN/Creat Ratio 14.6 RATIO (10-20); Calcium,Total 9.1 mg/dL (8.5-10.1); Chloride 112 mmol/L (98-107); Creatinine, Serum 1.37 mg/dL (0.70-1.30); EST Glomerular Filtration Rate 53 mL/min (>60); Est Glom Filt Rate - Afr Amer 64 mL/min (>60); Glucose 80 mg/dL (74-106); Potassium 3.8 mmol/L (3.5-5.1); Sodium Level 141 mmol/L (136-145)
[2022-11-26 18:19] LABS: BNP,B-Type NATRIURETIC PEPTIDE 11.6 pg/mL (0-100)
== END | disposition home or self-care (01) ==
LOC: MTLAB 14:11
PROVIDERS: PCP Family Medicine; Referring Provider Nurse Practitioner Gerontology; Visit Provider Nurse Practitioner Gerontology
DX: R06.09 Other forms of dyspnea (principal)
CPT/HCPCS: 36415; 80048; 83880; 85025

== ENCOUNTER → 2022-12-03 | Outpatient (CLI) | payer MEDICARE, SELFPAY ==
--- NOTE | 2022-12-03 13:40 | ECHOD_ITS ---
Reason For Study: Dyspnea Procedure This was a 2D Doppler, Color Flow transthoracic echocardiogram. Exam performed in department. Left Ventricle Normal LV size. Left ventricular systolic function is normal. The estimated ejection fraction is 60 %. No regional wall motion abnormalities noted. Right Ventricle Normal RV size. Normal systolic function. Atria Normal left atrium. Normal right atrium. Mitral Valve Normal mitral valve. Tricuspid Valve Normal tricuspid valve. Mild tricuspid valve insufficiency. Pulmonary artery systolic pressure is 28 mmHg. Aortic Valve Trisinus/trileaflet aortic valve. Mild focal aortic valve thickening. Mild (1+) aortic valve insufficiency. Pulmonic Valve Normal pulmonic valve. Great Vessels Normal aortic root. The pulmonary artery is normal size. Normal inferior vena cava. Pericardium/Pleural No pericardial effusion. MMode/2D Measurements & Calculations LVIDd: 4.1 cm IVSd: 1.1 cm Ao root diam: 3.4 cm LVIDs: 2.8 cm LVPWd: 0.99 cm RVDd: 2.9 cm FS: 31.3 % LAV(MOD-bp): 47.6 ml LVAd ap4: 23.8 cm2 SV(MOD-sp4): 35.7 ml LAV(MOD-bp) Indexed: 22.8 ml/m2 LVLd ap4: 7.5 cm LAV(MOD-sp2): 58.8 ml EDV(MOD-sp4): 63.0 ml LAV(MOD-sp4): 39.3 ml EDV(sp4-el): 64.4 ml LVAs ap4: 14.6 cm2 LVLs ap4: 6.5 cm ESV(MOD-sp4): 27.3 ml ESV(sp4-el): 27.9 ml EF(MOD-sp4): 56.7 % EF(sp4-el): 56.7 % SV(sp4-el): 36.5 ml LA A4 area: 16.9 cm2 LA dimension(2D): 2.8 cm RA A4 area: 16.2 cm2 TAPSE: 2.6 cm Time Measurements MV dec time: 0.23 sec Doppler Measurements & Calculations MV E max david: 68.6 cm/sec Lat Peak E' David: 6.4 cm/sec Med Peak E' David: 5.9 cm/sec MV A max david: 97.2 cm/sec E/E' lat: 10.7 E/E' med: 11.6 MV E/A: 0.71 Ao V2 max: 125.4 cm/sec AI max david: 442.2 cm/sec MV dec slope: 306.2 cm/sec2 Ao max P.3 mmHg AI max P.3 mmHg Ao V2 mean: 88.5 cm/sec Ao mean P.5 mmHg AI dec slope: 238.3 cm/sec2 Ao V2 VTI: 30.3 cm AI P1/2t: 543.7 msec AV (velocity ratio): 0.83 LV V1 max: 103.6 cm/sec PA V2 max: 74.3 cm/sec TR max david: 243.7 cm/sec LV V1 max P.3 mmHg TR max P.8 mmHg LV V1 mean P.4 mmHg LV V1 mean: 72.9 cm/sec LV V1 VTI: 25.0 cm ECHO/Echo Complete Interpretation Summary Normal LV size. Left ventricular systolic function is normal. The estimated ejection fraction is 60 %. Mild (1+) aortic valve insufficiency. Pulmonary artery systolic pressure is 28 mmHg. Mild focal aortic valve thickening. Ordering Physician: Autumn Ramirez Referring Physician: Waqar Wright Performed By: Kateryna Ramirez, SHANT, RVT
== END | disposition home or self-care (01) ==
PROVIDERS: PCP Family Medicine; Referring Provider Nurse Practitioner Gerontology; Visit Provider Nurse Practitioner Gerontology
DX: R06.02 Shortness of breath (principal)
CPT/HCPCS: 93306

== ENCOUNTER → 2023-03-04 | Outpatient (CLI) | payer MEDICARE, SELFPAY ==
[2023-03-04 17:54] LABS: Albumin, Serum 3.5 g/dL (3.2-5.0); BUN 19 mg/dL (7-18); BUN/Creat Ratio 13.3 RATIO (10-20); Calcium,Total 8.4 mg/dL (8.5-10.1); Chloride 113 mmol/L (98-107); Creatinine, Serum 1.43 mg/dL (0.70-1.30); EST Glomerular Filtration Rate 51 mL/min (>60); Est Glom Filt Rate - Afr Amer 61 mL/min (>60); Glucose 99 mg/dL (74-106); Phosphorus 2.7 mg/dL (2.5-4.9); Potassium 4.1 mmol/L (3.5-5.1); Sodium Level 145 mmol/L (136-145)
== END | disposition home or self-care (01) ==
LOC: MTLAB 14:44
PROVIDERS: PCP Family Medicine; Referring Provider Internal Medicine Nephrology; Visit Provider Internal Medicine Nephrology
DX: N18.31 Chronic kidney disease, stage 3a (principal)
CPT/HCPCS: 36415; 80069

== ENCOUNTER → 2023-03-22 | Outpatient (CLI) | payer MEDICARE, SELFPAY ==
--- NOTE | 2023-03-22 12:04 | EKG12_ITS ---
Test Reason : PREOP Blood Pressure : / mmHG Vent. Rate : 073 BPM Atrial Rate : 075 BPM P-R Int : 000 ms QRS Dur : 106 ms QT Int : 390 ms P-R-T Axes : 000 -50 116 degrees QTc Int : 429 ms Normal sinus rhythm Left anterior fascicular block Left ventricular hypertrophy with repolarization abnormality Abnormal ECG Confirmed by BASIA ACEVES, ОЛЕГ ([id number]), editorial writer SIMON GUTIÉRREZ ([id number]) on 03/23/2023 6:20:37 AM Referred By: Fortino Blackman Confirmed By:ОЛЕГ FLOR MD
[2023-03-22 13:23] LABS: Hematocrit 43.5 % (40-54); Hemoglobin 13.9 g/dL (13.0-16.5); Mean Corpuscular Hgb 32.3 pg (27.0-32.0); Mean Corpuscular Volume 100.9 fL (80-94); Platelet Count 177 K/mm3 (150-450); RBC Distribution Width CV 13.1 % (11.6-14.6); RBC Distribution Width SD 49.1 fl (35.1-43.9); Red Blood Count 4.31 M/mm3 (4.6-6.2); White Blood Count 7.9 K/mm3 (4.4-11.0)
[2023-03-22 13:44] LABS: Anion Gap 3 (5-15); BUN 20 mg/dL (7-18); BUN/Creat Ratio 14.1 RATIO (10-20); Calcium,Total 8.8 mg/dL (8.5-10.1); Chloride 114 mmol/L (98-107); Creatinine, Serum 1.42 mg/dL (0.70-1.30); EST Glomerular Filtration Rate 51 mL/min (>60); Est Glom Filt Rate - Afr Amer 62 mL/min (>60); Glucose 110 mg/dL (74-106); Sodium Level 142 mmol/L (136-145)
== END | disposition home or self-care (01) ==
LOC: PSN 12:03
PROVIDERS: PCP Family Medicine; Referring Provider Otolaryngology; Visit Provider Otolaryngology
DX: Z01.810 Encounter for preprocedural cardiovascular examination (principal)
CPT/HCPCS: 36415; 80048; 85027; 93005

== ENCOUNTER → 2023-04-11 | Outpatient (CLI) | payer MEDICARE, SELFPAY ==
[2023-04-11 17:55] LABS: Absolute Lymphocyte Count 1.28 X10^3/uL (0.83-4.51); Absolute Neutrophil Count 5.2 X10^3/uL (2.0-7.7); Basophil# 0.03 X10^3/uL; Basophil% 0.4 % (0-1); Eosinophils% 1.4 % (0-5); Hematocrit 44.3 % (40-54); Hemoglobin 14.2 g/dL (13.0-16.5); Lymphocyte # 1.28 X10^3/ul (0.83-4.51); Lymphocyte % 17.7 % (19-41); Mean Corp Hgb Conc 32.1 g/dL (32-36); Mean Corpuscular Hgb 32.5 pg (27.0-32.0); Mean Corpuscular Volume 101.4 fL (80-94); Mean Platelet Vol. 10.7 fl (6.2-12.0); Monocyte# 0.56 X10^3/uL; Monocyte% 7.8 % (0-10); NRBC Flagged by Analyzer 0 % (0-5); Neutrophil # 5.23 X10^3/uL (2.7-7.7); Neutrophil % 72.4 % (47-70); Platelet Count 173 K/mm3 (150-450); RBC Distribution Width CV 13.4 % (11.6-14.6); RBC Distribution Width SD 50.8 fl (35.1-43.9); Red Blood Count 4.37 M/mm3 (4.6-6.2); White Blood Count 7.2 K/mm3 (4.4-11.0)
[2023-04-11 17:59] LABS: ALB/GLOB Ratio 1.1 RATIO (0.9-2.4); AST(SGOT) 18 U/L (15-37); Alanine Aminotransfer ALT/SGPT 24 U/L (16-61); Albumin, Serum 3.5 g/dL (3.2-5.0); Alkaline Phosphatase 89 U/L (45-117); Anion Gap 4 (5-15); BUN 19 mg/dL (7-18); BUN/Creat Ratio 13.7 RATIO (10-20); Calcium,Total 8.5 mg/dL (8.5-10.1); Chloride 113 mmol/L (98-107); Creatinine, Serum 1.39 mg/dL (0.70-1.30); EST Glomerular Filtration Rate 52 mL/min (>60); Est Glom Filt Rate - Afr Amer 63 mL/min (>60); Globulin 3.1 g/dL (2.2-4.2); Glucose 131 mg/dL (74-106); Potassium 3.9 mmol/L (3.5-5.1); Protein, Total 6.6 g/dL (6.4-8.2); Sodium Level 141 mmol/L (136-145)
== END | disposition home or self-care (01) ==
PROVIDERS: PCP Family Medicine; Visit Provider Internal Medicine Rheumatology
DX: M46.90 Unspecified inflammatory spondylopathy, site unspecified (principal); Z79.899 Other long term (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
CPT/HCPCS: 36415; 80053; 85025

== ENCOUNTER → 2023-05-23 | Outpatient (CLI) | payer MEDICARE, SELFPAY ==
--- OUTSIDE RECORDS SUMMARY | 2023-05-23 13:02 | XMS RPT_ITS | CCD ---
Author Name Unknown Address [facility] [facility] [address] [place] [address] Organization [facility] Care Team Providers Care Casing In Line Setter Name Role Phone Roof TAPE CUTTER, Willie Lang Unavailable Allergies Allergy Classification Reported Allergen(s) Allergy Type Date of Onset Reaction(s) Facility (6 sources) ETHANOIAMINE drug allergy 11-09-2011 unable to sleep, becomes hyper [facility] Work Phone: Medications Completed/Discontinued Medications Medication Drug Class(es) Dates Sig (Normalized) Sig (Original) aspirin 325 mg oral tablet (12 sources) Nonsteroidal Anti-inflammatory Drug Start: 11-17-2011 take 1 tablet by mouth once daily ASPIRIN 325 MG TABS One tablet by mouth daily ASPIRIN [id number] Shawna Cowan PA-C Problems Active Problems Problem Classification Problem Date Documented Date Episodic/Chronic Coronary atherosclerosis and other heart disease (6 sources) Atherosclerotic heart disease of tribal coronary artery without angina pectoris; Translations: [Coronary arteriosclerosis] Onset: 10-19-2011 05-12-2016 Chronic Disorders of lipid metabolism (3 sources) Hyperlipidemia; Translations: [Hyperlipidemia, unspecified] Onset: 11-03-2011 11-03-2011 Chronic Essential hypertension (3 sources) Hypertensive disorder; Translations: [Essential (primary) hypertension] Onset: 11-03-2011 11-03-2011 Chronic Other nutritional; endocrine; and metabolic disorders (3 sources) Overweight; Translations: [Overweight] Onset: 05-19-2016 05-19-2016 Chronic Unclassified (6 sources) Body mass index (BMI) 30.0-30.9, adult; Translations: [Obstructive sleep apnea syndrome] Onset: 04-25-2013 11-19-2016 Chronic Past or Other Problems Problem Classification Problem Date Documented Da te Episodic/Chronic Conditions associated with dizziness or vertigo (3 sources) Dizziness and giddiness; Translations: [Dizziness and giddiness] Onset: 04-05-2014 04-05-2014 Episodic Coronary atherosclerosis and other heart disease (3 sources) Coronary angioplasty status; Translations: [Coronary angioplasty status] Onset: 10-19-2011 10-19-2011 Episodic Malaise and fatigue (3 sources) Fatigue; Translations: [Other fatigue] Onset: 04-05-2014 04-05-2014 Episodic Nonspecific chest pain (3 sources) Chest discomfort; Translations: [Other chest pain] Onset: 05-23-2012 05-23-2012 Episodic Other aftercare (3 sources) Other termite treater helper (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; Translations: [Other termite treater helper (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] Onset: 10-03-2014 10-03-2014 Episodic Other circulatory disease (3 sources) Orthostatic hypotension; Translations: [Orthostatic hypotension] Onset: 10-20-2015 10-20-2015 Episodic Other lower respiratory disease (3 sources) Dyspnea; Translations: [Shortness of breath] Onset: 04-05-2014 04-05-2014 Episodic Unclassified (15 sources) Edema of lower extremity; Translations: [Body mass index (BMI) 27.0-27.9, adult] Onset: 04-25-2013 06-26-2015 Episodic Unclassified (6 sources) Long-term drug therapy; Translations: [Long-term (current) use of other medications] Onset: 04-15-2014 Resolved: 10-03-2014 10-03-2014 Results Test Name Value Interpretation Reference Range Facil ity Vital Signs Date Time Vital Sign Value Performing Clinician Yang marcelo 02-03-2017 13:51-0500 BMI (Body Mass Index) 30.42 kg/m2 [facility] Work Phone: 02-03-2017 13:51-0500 BP Diastolic 78 mm[Hg] Willie Ramirez NP [facility] Work Phone: 02-03-2017 13:51-0500 BP Systolic 140 mm[Hg] Willie Ramirez NP [facility] Work Phone: 02-03-2017 13:51-0500 Height 175.26 cm Willie Ramirez NP [facility] Work Phone: 02-03-2017 13:51-0500 Pulse (Heart Rate) 84 /min Willie Ramirez TAPE CUTTER [facility] Work Phone: 02-03-2017 13:51-0500 Respiratory Rate 20 /min Willie Ramirez TAPE CUTTER [facility] Work Phone: 02-03-2017 13:51-0500 Weight 93.44 kg Willie Ramirez TAPE CUTTER [facility] Work Phone: 11-19-2016 15:29-0400 BMI (Body Mass Index) 30.6 kg/m2 Willie Ramirez TAPE CUTTER [facility] Work Phone: 11-19-2016 15:29-0400 BP Diastolic 78 mm[Hg] Willie Ramirez TAPE CUTTER [facility] Work Phone: 11-19-2016 15:29-0400 BP Systolic 148 mm[Hg] Willie Ramirez TAPE CUTTER [facility] Work Phone: 11-19-2016 15:29-0400 Height 175.26 cm Willie Ramirez TAPE CUTTER [facility] Work Phone: 11-19-2016 15:29-0400 Pulse (Heart Rate) 76 /min Willie Ramirez TAPE CUTTER [facility] Work Phone: 11-19-2016 15:29-0400 Respiratory Rate 20 /min Willie Ramirez TAPE CUTTER [facility] Work Phone: 11-19-2016 15:29-0400 Weight 94.01 kg Willie Ramirez TAPE CUTTER [facility] Work Phone: 10-20-2015 11:12-0400 BSA (Body Surface Area) 2.02 m2 Willie Ramirez TAPE CUTTER [facility] Work Phone: Procedures Date Procedure Procedure Detail Performing Clinician Start: 02-03-2017 End: 02-04-2017 Natriuretic peptide B [Mass/volume] in Blood Willie Ramirez TAPE CUTTER Work Phone: Start: 11-19-2016 End: 11-19-2016 Follow Up Appt 6 months Shawna lucia PA-C Work Phone: Start: 11-19-2016 End: 11-19-2016 PFM Shawna Cowan PA-C Work Phone: Start: 06-01-2016 End: 11-09-2016 Nuclear stress test -Lexiscan Kayode john MD Start: 05-19-2016 End: 05-19-2016 Follow Up Appt 6 months Kayode Ramirez MD Start: 05-19-2016 End: 11-09-2016 Follow Up Appt Other Kayode Ramirez MD Start: 05-19-2016 End: 05-19-2016 MMM Kayode Ramirez MD Start: 10-20-2015 End: 10-20-2015 Follow Up Appt 6 months Shawna lucia PA-C Work Phone: Start: 10-20-2015 End: 10-20-2015 PFM Shawna Cowan PA-C Work Phone: Start: 09-29-2015 End: 10-13-2015 *Hepatic Function Panel Shawna lucia PA-C Work Phone: Start: 09-29-2015 End: 10-13-2015 Lipid 1996 panel - Serum or Plasma Shawna Cowan PA-C Work Phone: Start: 06-26-2015 End: 10-14-2015 Echocardiography Shawna Cowan PA-C Work Phone: Start: 06-26-2015 End: 06-26-2015 Follow Up Appt Other Shawna dotson PA-C Work Phone: Start: 06-26-2015 End: 10-14-2015 Venous doppler Shawna Cowan PA-C Work Phone: Start: 04-04-2015 End: 10-16-2015 *Hepatic Function Panel Kayode Ramirez MD Start: 04-04-2015 End: 04-04-2015 Ecg routine ecg w/least 12 lds w/i&r Kayode Raimrez MD Start: 04-04-2015 End: 04-04-2015 Follow Up Appt 6 months Kayode Ramirez MD Start: 04-04-2015 End: 10-16-2015 Lipid 1996 panel - Serum or Plasma Kayode Ramirez MD Start: 04-04-2015 End: 04-04-2015 MMM Kayode Ramirez MD Start: 03-31-2015 End: 03-31-2015 *Hepatic Function Panel Shawna lucia PA-C Work Phone: Start: 03-31-2015 End: 03-31-2015 Lipid 1996 panel - Serum or Plasma Shawna Cowan PA-C Work Phone: Start: 10-02-2014 End: 10-02-2014 *Hepatic Function Panel Kayode Ramirez MD Start: 10-02-2014 End: 10-03-2014 Documentation of current medications Shawna Cowan PA-C Work Phone: Start: 10-02-2014 End: 10-02-2014 Follow Up Appt 6 months Shawna lucia PA-C Work Phone: Start: 10-02-2014 End: 10-02-2014 Lipid 1996 panel - Serum or Plasma Kayode Ramirez MD Start: 10-02-2014 End: 10-02-2014 PFM Shawna Cowan PA-C Work Phone: Start: 04-15-2014 End: 04-18-2014 *Hepatic Function Panel Kayode Ramirez MD Start: 04-15-2014 End: 04-18-2014 Lipid 1996 panel - Serum or Plasma Kayode Ramirez MD Start: 04-05-2014 End: 04-18-2014 24 hour holter monitor Kayode Ramirez MD Start: 04-05-2014 End: 04-05-2014 Ecg routine ecg w/least 12 lds w/i&r Kayode Ramirez MD Start: 04-05-2014 End: 04-15-2014 Echocardiography Kayode Ramirez MD Start: 04-05-2014 End: 04-05-2014 Follow Up Appt 6 months Kayode Ramirez MD Start: 04-05-2014 End: 09-24-2014 Follow Up Appt Other Kayode Ramirez MD Start: 04-05-2014 End: 04-05-2014 MMM Kayode Ramirez MD Start: 04-05-2014 End: 04-15-2014 Nuclear stress test -exercise Kayode john MD Start: 10-25-2013 End: 10-25-2013 Echocardiography Shawna Cowan PA-C Work Phone: Start: 10-25-2013 End: 10-25-2013 Follow Up Appt 6 months Shawna lucia PA-C Work Phone: Start: 10-25-2013 End: 09-24-2014 Follow Up Appt Other Shawna dotson PA-C Work Phone: Start: 10-25-2013 End: 10-25-2013 PFM Shawna Cowan PA-C Work Phone: Start: 04-25-2013 End: 04-25-2013 Follow Up Appt 6 months Kayode Ramirez MD Start: 04-25-2013 End: 09-24-2014 Follow Up Appt Other Kayode Ramirez MD Start: 04-25-2013 End: 04-25-2013 MMM Kayode Ramirez MD Start: 09-20-2012 End: 09-20-2012 Follow Up Appt 6 months Kayode Ramirez MD Start: 09-20-2012 End: 09-20-2012 PFM Kayode Ramirez MD Start: 06-05-2012 End: 09-20-2012 Follow Up Appt 4 months Kayode Ramirez MD Start: 06-05-2012 End: 10-25-2013 Nuclear stress test -exercise Kayode john MD Start: 06-05-2012 End: 09-20-2012 PFM Kayode Ramirez MD Start: 05-23-2012 End: 05-23-2012 Ecg routine ecg w/least 12 lds w/i&r Srinath Wayne MD Start: 05-23-2012 End: 05-23-2012 Follow Up Appt Other Shawna dotson PA-C Work Phone: Start: 05-23-2012 End: 05-23-2012 PF Shwana Cowan PA-C Work Phone: Start: 11-17-2011 End: 09-20-2012 *Hepatic Function Panel Kayode Ramirez MD Start: 11-17-2011 End: 05-23-2012 Ecg routine ecg w/least 12 lds w/i&r Kayode Ramirez MD Start: 11-17-2011 End: 05-23-2012 Follow Up Appt 6 months Kayode Ramirez MD Start: 11-17-2011 End: 05-23-2012 Follow Up Appt Other Kayode Ramirez MD Start: 11-17-2011 End: 09-20-2012 Lipid 1996 panel - Serum or Plasma Kayode Ramirez MD Plan of Treatment Date Care Activity Detail Author Start: 07-13-2017 End: 07-13-2017 Appointment Appointment [facility] Work Phone: Start: 02-03-2017 End: 02-04-2017 BNP *Brain Natriuretic Peptide BNP [facility] Work Phone: Start: 02-03-2017 End: 02-03-2017 Echocardiography Echocardiogram (complete) [facility] Work Phone: Start: 11-19-2016 End: 11-19-2016 Follow Up Appt 6 months Follow Up Appt 6 months [facility] Work Phone: Start: 11-19-2016 End: 11-19-2016 Follow Up Appt Other Follow Up Appt Other [facility] Work Phone: Start: 11-19-2016 End: 11-19-2016 Lipid panel [AGGREGATE] *Lipid Profile CC PCP [facility] Work Phone: Start: 11-19-2016 End: 11-19-2016 PFM PFM [facility] Work Phone: Start: 05-19-2016 End: 05-19-2016 Follow Up Appt 6 months Follow Up Appt 6 months [facility] Work Phone: Start: 05-19-2016 End: 11-09-2016 Follow Up Appt Other Follow Up Appt Other [facility] Work Phone: Start: 05-19-2016 End: 05-19-2016 MMM MMM [facility] Work Phone: Start: 05-19-2016 End: 05-20-2016 Nuclear stress test -Lexiscan Nuclear stress test -Lexiscan [facility] Work Phone: Start: 10-20-2015 End: 10-20-2015 Follow Up Appt 6 months Follow Up Appt 6 months [facility] Work Phone: Start: 10-20-2015 End: 10-20-2015 PFM PFM [facility] Work Phone: Start: 09-29-2015 End: 10-13-2015 *Hepatic Function Panel *Hepatic Function Panel [facility] Work Phone: Start: 09-29-2015 End: 10-13-2015 Lipid panel [AGGREGATE] *Lipid Profile CC PCP [facility] Work Phone: Start: 06-26-2015 End: 06-26-2015 Echocardiography Echocardiogram (complete) [facility] Work Phone: Start: 06-26-2015 End: 06-26-2015 Follow Up Appt Other Follow Up Appt Other [facility] Work Phone: Start: 06-26-2015 End: 06-26-2015 Venous doppler Venous doppler [facility] Work Phone: Start: 04-19-2015 End: 03-31-2015 *Hepatic Function Panel *Hepatic Function Panel [facility] Work Phone: Start: 04-19-2015 End: 03-31-2015 Lipid panel [AGGREGATE] *Lipid Profile CC PCP [facility] Work Phone: Start: 04-04-2015 End: 10-16-2015 *Hepatic Function Panel *Hepatic Function Panel [facility] Work Phone: Start: 04-04-2015 End: 04-04-2015 Ecg routine ecg w/least 12 lds w/i&r EKG (In office) [facility] Work Phone: Start: 04-04-2015 End: 04-04-2015 Follow Up Appt 6 months Follow Up Appt 6 months [facility] Work Phone: Start: 04-04-2015 End: 10-16-2015 Lipid panel [AGGREGATE] *Lipid Profile CC PCP [facility] Work Phone: Start: 04-04-2015 End: 04-04-2015 MMM MMM [facility] Work Phone: Start: 10-14-2014 End: 10-02-2014 *Hepatic Function Panel *Hepatic Function Panel [facility] Work Phone: Start: 10-14-2014 End: 10-02-2014 Lipid panel [AGGREGATE] *Lipid Profile CC PCP [facility] Work Phone: Start: 10-02-2014 End: 10-02-2014 Follow Up Appt 6 months Follow Up Appt 6 months [facility] Work Phone: Start: 10-02-2014 End: 10-02-2014 PFM PFM [facility] Work Phone: Start: 04-15-2014 End: 04-18-2014 *Hepatic Function Panel *Hepatic Function Panel [facility] Work Phone: Start: 04-15-2014 End: 04-18-2014 Lipid panel [AGGREGATE] *Lipid Profile CC PCP [facility] Work Phone: Start: 04-05-2014 End: 04-05-2014 24 hour holter monitor 24 hour holter monitor [facility] Work Phone: Start: 04-05-2014 End: 04-05-2014 Ecg routine ecg w/least 12 lds w/i&r EKG (In office) [facility] Work Phone: Start: 04-05-2014 End: 04-05-2014 Echocardiography Echocardiogram (complete) [facility] Work Phone: Start: 04-05-2014 End: 04-05-2014 Follow Up Appt 6 months Follow Up Appt 6 months [facility] Work Phone: Start: 04-05-2014 End: 09-24-2014 Follow Up Appt Other Follow Up Appt Other [facility] Work Phone: Start: 04-05-2014 End: 04-05-2014 MMM MMM [facility] Work Phone: Start: 04-05-2014 End: 04-05-2014 Nuclear stress test -exercise Nuclear stress test -exercise [facility] Work Phone: Start: 10-25-2013 End: 10-25-2013 CELLAR PUMPER CELLAR PUMPER [facility] Work Phone: Start: 10-25-2013 End: 10-25-2013 Follow Up Appt 6 months Follow Up Appt 6 months [facility] Work Phone: Start: 10-25-2013 End: 09-24-2014 Follow Up Appt Other Follow Up Appt Other [facility] Work Phone: Start: 10-25-2013 End: 10-25-2013 PFM PFM [facility] Work Phone: Start: 04-25-2013 End: 04-25-2013 Follow Up Appt 6 months Follow Up Appt 6 months [facility] Work Phone: Start: 04-25-2013 End: 09-24-2014 Follow Up Appt Other Follow Up Appt Other [facility] Work Phone: Start: 04-25-2013 End: 04-25-2013 MMM MMM [facility] Work Phone: Start: 09-20-2012 End: 09-20-2012 Follow Up Appt 6 months Follow Up Appt 6 months [facility] Work Phone: Start: 09-20-2012 End: 09-20-2012 PFM PFM [facility] Work Phone: Start: 06-05-2012 End: 09-20-2012 Follow Up Appt 4 months Follow Up Appt 4 months [facility] Work Phone: Start: 06-05-2012 End: 06-05-2012 Nuclear stress test -exercise Nuclear stress test -exercise [facility] Work Phone: Start: 06-05-2012 End: 09-20-2012 PFM PFM [facility] Work Phone: Start: 05-23-2012 End: 05-23-2012 Ecg routine ecg w/least 12 lds w/i&r EKG (In office) [facility] Work Phone: Start: 05-23-2012 End: 05-23-2012 Follow Up Appt Other Follow Up Appt Other [facility] Work Phone: Start: 05-23-2012 End: 05-23-2012 PFM PFM [facility] Work Phone: Start: 11-17-2011 End: 09-20-2012 *Hepatic Function Panel *Hepatic Function Panel [facility] Work Phone: Start: 11-17-2011 End: 05-23-2012 Ecg routine ecg w/least 12 lds w/i&r EKG (In office) [facility] Work Phone: Start: 11-17-2011 End: 05-23-2012 Follow Up Appt 6 months Follow Up Appt 6 months [facility] Work Phone: Start: 11-17-2011 End: 05-23-2012 Follow Up Appt Other Follow Up Appt Other [facility] Work Phone: Start: 11-17-2011 End: 09-20-2012 Lipid panel [AGGREGATE] *Lipid Profile [facility] Work Phone: Patient Education [facility] Work Phone: Clinical Note 05-08-2020 Note Date & Type Note Facility 05-08-2020 Note Patient Outreach ([facility]) IMAN COWAN ([id number]) 1945 M Date Time Provider Department 05/08/20 MARGE FALCON During your visit today, we recorded the following information about you: Allergies As of Date: 05/08/2020 Noted Allergy Reaction ANTIHISTAMINE (DIPHENHYDRAMINE HC*12/02/2004 Comments: hyperactivity and drowsiness DOLOBID (DIFLUNISAL) 12/02/2004 DRIXORAL (BROMPHENIRAMINE-PSEUDOE*12/02/2004 Comments: hyperactivity and drowsiness HYDROCHLOROTHIAZIDE 12/02/2004 Comments: skin sensitivity (sun) Date Reviewed: 04/11/2019 Reviewed by: Doreen Bradford LPN - Fully Assessed Order(s):SARS-COVID VACCINE 1ST DOSE APPT [[id number]] Order #: [id number] FUTURE Prescriptions as of 05/08/2020 Sig: ESCITALOPRAM 5 MG TABLET Take 1 tablet by mouth once d* ASPIRIN 81 MG TABLET,DELAYED * Take 1 tablet by mouth once d* TAMSULOSIN 0.4 MG CAPSULE TAKE 1 CAPSULE DAILY PRAMIPEXOLE 1 MG TABLET TAKE 2 TABLETS DAILY AT BEDTI* ENALAPRIL MALEATE 5 MG TABLET TAKE 1 TABLET TWICE A DAY ATORVASTATIN 40 MG TABLET TAKE 1 TABLET DAILY OMEPRAZOLE 40 MG CAPSULE,MARIZA* TAKE 1 CAPSULE DAILY METOPROLOL SUCCINATE ER 25 MG* Take 1 tablet by mouth once d* METHOTREXATE SODIUM ORAL Take by mouth. 5 tablets onc* FOLIC ACID ORAL Take by mouth twice daily. BLOOD SUGAR DIAGNOSTIC STRIPS Test blood sugar(s) 1 times d* ULTRAM 50 MG TABLET Take one(1) tablet every four* Problem List As Of Date 05/08/2020 Noted Resolved Essential hypertension, benign [I10] 12/02/2004 Rheumatoid arthritis (HCC) [M06.9] 12/02/2004 More... ESOPHAGEAL REFLUX [K21.9] 12/02/2004 HYPERLIPIDEMIA NEC/NOS [E78.5] 12/02/2004 More... MYALGIA AND MYOSITIS NOS [BRZ2064] 12/02/2004 Type II or unspecified type diabetes mellitus w*12/02/2004 10/16/2012 More... 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 RENAL COLIC [N23] 05/07/2008 Other pulmonary embolism and infarction [I26.99]05/22/2008 More... RENAL AND URETERAL DIS NOS [N28.9] 05/28/2008 More... More... BPH w urinary obs/LUTS [N40.1, N13.8] 07/14/2009 More... Bladder Neck Obstruction [N32.0] 07/14/2009 Kidney stone [N20.0] 08/30/2011 Urgency of urination [R39.15] 08/30/2011 Frequency of urination [R35.0] 08/30/2011 Nocturia [R35.1] 08/30/2011 Hesitancy of micturition [R39.11] 08/30/2011 Coronary artery disease [I25.10] 10/13/2011 Actinic Keratoses (Premalignt AK's) [L57.0] 08/04/2012 Actinic skin damage [L57.8] 08/04/2012 Solar Lentigines [L81.4] 08/04/2012 Xerosis cutis [L85.3] 08/04/2012 Other Seborrheic Keratoses [L82.1] 08/04/2012 Postinflammatory skin changes [R23.8] 12/20/2012 Renal cyst [N28.1] 09/26/2013 RLS (restless legs syndrome) [G25.81] 10/17/2013 Special screening for malignant neoplasms, colo*02/21/2014 02/21/2014 Abdominal discomfort, epigastric [R10.13] 02/06/2015 Other cholelithiasis without obstruction [K80.8*02/17/2015 Chronic cholecystitis with calculus [K80.10] 05/01/2015 BPH (benign prostatic hypertrophy) with urinary*12/10/2015 Elevated prostate specific antigen (PSA) [R97.2*12/10/2015 History of kidney stones [Z87.442] 12/10/2015 Encounter Status:Closed by BALJIT, PRODUSER on 05/12/20 [facility] Summary Purpose Family History No Family History Records Found Advance Directives No Advanced Directives Records Found Additional Source Comments (unrecognized sect ion and content) No Status Records Found INFORMATION SOURCE (unrecogn ized section and content) FOR RECORDS PERTAINING TO PATIENTS WHO ARE OR HAVE BEEN ENROLLED IN A CHEMICAL DEPENDENCY/SUBSTANCEABUSE PROGRAM, SOME INFORMATION MAY BE OMITTED. This clinical summary was aggregated from multiple sources. Caution should be exercised in using it in the provision of clinical care. This summary normalizes information from multiple sources, and as a consequence, information in this document may materially change the coding, format and clinical context of patient data. In addition, data may be omitted in some cases. CLINICAL DECISIONS SHOULD BE BASED ON THE PRIMARY CLINICAL RECORDS. [facility]. provides no warranty or guarantee of the accuracy or completeness of information in this document.
[2023-05-23 15:08] LABS: Absolute Lymphocyte Count 1.59 X10^3/uL (0.83-4.51); Absolute Neutrophil Count 5.4 X10^3/uL (2.0-7.7); Basophil# 0.05 X10^3/uL; Basophil% 0.6 % (0-1); Eosinophil# 0.09 X10^3/uL; Eosinophils% 1.1 % (0-5); Hematocrit 44.6 % (40-54); Lymphocyte # 1.59 X10^3/ul (0.83-4.51); Lymphocyte % 20.3 % (19-41); Mean Corp Hgb Conc 33.6 g/dL (32-36); Mean Corpuscular Hgb 32.8 pg (27.0-32.0); Mean Corpuscular Volume 97.6 fL (80-94); Mean Platelet Vol. 10.2 fl (6.2-12.0); Monocyte# 0.72 X10^3/uL; Monocyte% 9.2 % (0-10); NRBC Flagged by Analyzer 0 % (0-5); Neutrophil # 5.36 X10^3/uL (2.7-7.7); Neutrophil % 68.4 % (47-70); Platelet Count 172 K/mm3 (150-450); RBC Distribution Width CV 13.1 % (11.6-14.6); RBC Distribution Width SD 47.1 fl (35.1-43.9); Red Blood Count 4.57 M/mm3 (4.6-6.2); White Blood Count 7.8 K/mm3 (4.4-11.0)
[2023-05-23 15:34] LABS: Anion Gap 5 (5-15); BUN 20 mg/dL (7-18); BUN/Creat Ratio 11.4 RATIO (10-20); Calcium,Total 9.3 mg/dL (8.5-10.1); Chloride 112 mmol/L (98-107); Creatinine, Serum 1.76 mg/dL (0.70-1.30); EST Glomerular Filtration Rate 40 mL/min (>60); Est Glom Filt Rate - Afr Amer 48 mL/min (>60); Glucose 95 mg/dL (74-106); Potassium 4.4 mmol/L (3.5-5.1); Sodium Level 140 mmol/L (136-145)
== END | disposition home or self-care (01) ==
PROVIDERS: PCP Family Medicine; Referring Provider Internal Medicine Cardiovascular Disease; Visit Provider Internal Medicine Cardiovascular Disease
DX: I50.33 Acute on chronic diastolic (congestive) heart failure (principal); D64.9 Anemia, unspecified; R60.0 Localized edema; R06.09 Other forms of dyspnea; Z79.899 Other long term (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
CPT/HCPCS: 36415; 80048; 85025

== ENCOUNTER 2023-05-27 09:51 | Inpatient (IN) | payer MEDICARE, SELFPAY ==
[2023-05-27] VITALS (10 sets, daily range): BP systolic 144–207; BP diastolic 66–100; PULSE 62–89; RESP 13–18; TEMP 36.2–36.6; O2SAT 96–99; BMI 30.4; BMI 31.5
--- NOTE | 2023-05-27 10:33 | EKG12_ITS ---
Test Reason : PRE CI Blood Pressure : / mmHG Vent. Rate : 068 BPM Atrial Rate : 068 BPM P-R Int : 212 ms QRS Dur : 100 ms QT Int : 402 ms P-R-T Axes : -06 -49 -31 degrees QTc Int : 427 ms Sinus rhythm with 1st degree A-V block Left anterior fascicular block Nonspecific T wave abnormality Abnormal ECG When compared with ECG of 27-MAY-2023 13:56, No significant change was found Confirmed by BASIA ACEVES, ОЛЕГ ([id number]), book editor TORRES PLATA ([id number]) on 06/02/2023 6:27:05 AM Referred By: Confirmed By:ОЛЕГ FLOR MD
--- NOTE | 2023-05-27 10:33 | RAD_ITS ---
INDICATION: chest pain EXAMINATION/TECHNIQUE: X-RAY - XR Chest 1 View COMPARISON: No relevant prior comparison study available FINDINGS: LINES/DEVICES: None. LUNGS: No consolidation, edema or effusion. No pneumothorax. MEDIASTINUM AND CARDIOVASCULAR STRUCTURES: Mild enlargement of the cardiac silhouette. Retrocardiac density could reflect hiatal hernia. BONES AND SOFT TISSUES: No demonstrated acute osseous changes. RAD/Chest 1 View (Portable) IMPRESSION: 1. Mild enlargement of the cardiac silhouette. 2. Retrocardiac density could reflect hiatal hernia. CT scan the chest might be of value. Electronically Signed: Ulysses Rivas MD at 10:53 EST ,
[2023-05-27 10:43] LABS: Absolute Lymphocyte Count 1.28 X10^3/uL (0.83-4.51); Absolute Neutrophil Count 5.4 X10^3/uL (2.0-7.7); Basophil# 0.04 X10^3/uL; Basophil% 0.5 % (0-1); Eosinophil# 0.12 X10^3/uL; Eosinophils% 1.6 % (0-5); Lymphocyte # 1.28 X10^3/ul (0.83-4.51); Lymphocyte % 17.3 % (19-41); Mean Corp Hgb Conc 32.6 g/dL (32-36); Mean Corpuscular Hgb 32.1 pg (27.0-32.0); Mean Corpuscular Volume 98.3 fL (80-94); Mean Platelet Vol. 11.3 fl (6.2-12.0); Monocyte# 0.54 X10^3/uL; Monocyte% 7.3 % (0-10); NRBC Flagged by Analyzer 0 % (0-5); Neutrophil % 72.9 % (47-70); POSITIVE COUNT YES; RBC Distribution Width CV 13.3 % (11.6-14.6); RBC Distribution Width SD 47.8 fl (35.1-43.9); Red Blood Count 4.68 M/mm3 (4.6-6.2); White Blood Count 7.4 K/mm3 (4.4-11.0)
--- NOTE | 2023-05-27 11:02 | EDS_ITS ---
HPI History of Present Illness Chief Complaint: Chest Pain Narrative Narrative: 77-year-old male presenting for chest pain. Patient states that onset was about last night at 1 AM and lasted a couple hours or possibly 3 hours. Patient was in bed. Patient states he no longer has any chest discomfort. He is not lightheaded or dizzy. He has no nausea or vomiting. No fevers or chills. Patient admits to history of cardiac disease including CHF, CAD, [place]. He also has a history of GERD and hiatal hernia. Patient denies any weight gain or significant swelling of his lower extremities. Patient states after his chest pain resolved he noticed that he felt achy all over. Patient describes his chest pain as discomfort and it is all over his chest and he states it radiates from the upper chest down to the mid abdomen. He describes this as crampy and uncomfortable. [facility] Medical History Ambulates with cane Anemia Anxiety Arthritis Asthma Atherosclerosis of [place] coronary artery of [place] heart without angina pectoris Back pain BPH (benign prostatic hyperplasia) Cardiology follow-up encounter Chronic serous otitis media of right ear COPD (chronic obstructive pulmonary disease) CPAP (continuous positive airway pressure) dependence Depression Dysphagia Easy bruising Essential (primary) hypertension Gastric reflux Hiatal hernia High cholesterol History of echocardiogram History of edema History of hiatal hernia History of kidney stones History of pain when walking History of pulmonary embolism History of stress test Hyperlipidemia Hypertension Nephrolithiasis Neuropathy Non-smoker RENALDO (obstructive sleep apnea) Presence of stent in coronary artery (~09/21/11) Restless legs Rheumatoid arthritis Shortness of breath on exertion Sleep apnea Thyroid disease Wears glasses Home Medications atorvastatin 40 mg tablet 40 mg PO QHS 12/18/12 [History Last Taken 12/26/12 40 mg] omeprazole 20 mg capsule,delayed release 20 mg PO DAILY 12/18/12 [History Last Taken 10/05/21] albuterol sulfate 90 mcg/actuation aerosol inhaler (ProAir HFA) 2 puff inhalation Q6H PRN Sob &/Or Wheezing 07/07/17 [History Last Taken 10/05/21] nitroglycerin 0.4 mg sublingual tablet 0.4 mg sublingual Q5M PRN Chest Pain #90 tabs 07/13/17 [Rx Last Taken Unknown] levothyroxine 100 mcg tablet 100 mcg PO DAILY 05/30/18 [History Last Taken Unknown] tamsulosin 0.4 mg capsule 0.8 mg PO Q24H 05/30/18 [History Last Taken Unknown] aspirin 81 mg tablet,delayed release (Adult Low Dose Aspirin) 81 mg PO DAILY 05/25/19 [History Last Taken Unknown] fluticasone furoate 100 mcg-vilanterol 25 mcg/dose inhalation powder (Breo Ellipta) 1 inh inhalation DAILY 05/05/20 [History Last Taken Unknown] metoprolol succinate 25 mg tablet,extended release 24 hr 25 mg PO BID 10/16/20 [History Last Taken 10/05/21] enalapril maleate 10 mg tablet 5 mg (1/2 x 10 mg) PO BID #90 tabs 06/22/21 [Rx Last Taken 10/05/21] hydroxychloroquine 200 mg tablet 200 mg PO DAILY 11/05/21 [History Last Taken Unknown] cyanocobalamin (vitamin B-12) 1,000 mcg/mL injection kit 100 mcg IM QMONTH 05/13/22 [History Last Taken Unknown] ferrous sulfate 325 mg (65 mg iron) tablet 325 mg PO DAILY 05/13/22 [History Last Taken Unknown] finasteride 5 mg tablet 5 mg PO DAILY 05/13/22 [History Last Taken Unknown] latanoprost 0.005 % eye drops 1 drp ophthalmic (eye) QPM 05/13/22 [History Last Taken Unknown] tramadol 50 mg tablet 50 mg PO Q12H PRN pain 09/24/22 [History Last Taken Unknown] empagliflozin 10 mg tablet (Jardiance) 10 mg PO DAILY #30 tabs 05/05/23 [Rx Last Taken Unknown] gabapentin 100 mg capsule mg PO 05/05/23 [History Last Taken Unknown] pramipexole 1 mg tablet 2 mg PO QHS RLS 05/05/23 [History Last Taken Unknown] spironolactone 25 mg tablet 25 mg PO DAILY #30 tabs 05/05/23 [Rx Last Taken Unknown] ferrous gluconate 324 mg (37.5 mg iron) tablet 324 mg PO DAILY 05/27/23 [History Last Taken Unknown] fluticasone furoate 200 mcg/actuation blister powder for inhalation (Arnuity Ellipta) 1 inh inhalation Q24H 05/27/23 [History Last Taken Unknown] furosemide 40 mg tablet 40 mg PO DAILY 05/27/23 [History Last Taken Unknown] Allergy/AdvReac Type Severity Reaction Status Date / Time Antihistamines - AdvReac Other Verified 05/27/23 09:52 Ethylenediamine Family History Father CAD (coronary artery disease) Mother CAD (coronary artery disease) Breast cancer Colon cancer Diabetes Brother CAD (coronary artery disease) CVA (cerebral vascular accident) Diabetes Surgical History History of back surgery (~04/19/17) History of back surgery History of cardiac catheterization History of cholecystectomy History of cystoscopy History of ear surgery History of esophagogastroduodenoscopy (EGD) History of total left knee replacement History of total right knee replacement (TKR) (~03/17/16) Hx of appendectomy Hx of bilateral cataract extraction Hx of colonoscopy Hx of right knee surgery Presence of coronary angioplasty implant and graft (~09/21/11) Social History Smoking Status: Never smoker alcohol intake: never substance use type: does not use caffeine: Yes Type: carbonated beverages Number of servings: 1 what type of physical activity do you participate in: none seatbelt use: always do you feel safe at home: Yes ROS ROS ED Constitutional Constitutional ED: Denies chills, fever(s) or sweats Eyes Eyes: Denies blurry vision or change in vision ENT ENT ED: Denies ear pain or sore throat Cardiovascular Cardiovascular: Reports chest pain; Denies palpitations or racing heartbeat Respiratory/Chest Respiratory/Chest: Denies cough, dyspnea or sputum Gastrointestinal Gastrointestinal: Denies abdominal pain, constipation, diarrhea, nausea or vomiting Genitourinary Genitourinary ED: Denies dysuria, hematuria or urinary frequency Musculoskeletal Musculoskeletal: Denies arthralgias, myalgias or neck pain Integumentary Denies abscess, Abrasions or rash Neurologic Neurologic: Denies headache(s), paresthesias or weakness Psychiatric Psychiatric: Denies anxiety, depression, suicidal ideation or suicidal thoughts Endocrine Endocrinology: Denies polydipsia or polyuria EXAM Physical Exam Const Vital Signs: 05/27/23 09:52 05/27/23 10:03 05/27/23 10:03 Temperature 97.1 F L Temperature Source Temporal Pulse Rate 72 70 Respiratory Rate 18 16 Respiratory Effort Normal Non-Labored Blood Pressure 207/100 H Blood Pressure Mean 135 Pulse Ox 99 Oxygen Delivery Method Room Air Room Air 05/27/23 10:37 Temperature Temperature Source Pulse Rate Respiratory Rate Respiratory Effort Blood Pressure Blood Pressure Mean Pulse Ox Oxygen Delivery Method Room Air Positive well nourished General Appearance ED: NAD HEENT Reports moist mucous membranes normocephalic Eyes PERRL and EOMs intact bilaterally Chest Wall inspection of chest normal Resp normal respiratory effort and clear to auscultation bilaterally Auscultation: Negative for rales, rhonchi or wheezes Cardio regular rate and regular rhythm GI normal to inspection, nondistended, normoactive bowel sounds Neuro oriented x3 and CN's II-XII intact bilaterally Sensorium / Orientation: awake and alert Psych mental status grossly normal Skin no rashes or lesions noted Heart Score History: Slightly/Non-Suspicious ECG: Normal Age: >/= 65 years Risk Factors: >/= 3 Risk Factors or History of CAD Score: 4 MDM MDM Radiography Diagnostic Testing: Clinical Impression(s) from Imaging Studies Chest X-Ray 05/27/23 10:33 IMPRESSION: 1. Mild enlargement of the cardiac silhouette. 2. Retrocardiac density could reflect hiatal hernia. CT scan the chest might be of value. Electronically Signed: Ulysses Rivas MD at 10:53 EST , Discharge Plan Triage Chief Complaint: Chest Pain ED Provider: Arnoldo Mulligan Dx/Rx/DC Orders Prescriptions: No Action nitroglycerin 0.4 mg tablet, sublingual 0.4 mg SUBLINGUAL Q5M PRN (Reason: Chest Pain) Qty: 90 6RF albuterol sulfate [ProAir HFA] 90 mcg/actuation HFA aerosol inhaler 2 puff INHALATION Q6H PRN (Reason: Sob &/Or Wheezing) levothyroxine 100 mcg tablet 100 mcg PO DAILY aspirin [Adult Low Dose Aspirin] 81 mg tablet,delayed release (DR/EC) 81 mg PO DAILY Breo Ellipta 100-25 mcg/dose blister with device 1 inh INHALATION DAILY metoprolol succinate 25 mg tablet extended release 24 hr 25 mg PO BID hydroxychloroquine 200 mg tablet 200 mg PO DAILY ferrous sulfate 325 mg (65 mg iron) tablet 325 mg PO DAILY finasteride 5 mg tablet 5 mg PO DAILY cyanocobalamin (vitamin B-12) 1,000 mcg/mL kit 100 mcg IM QMONTH latanoprost 0.005 % drops 1 drp ophthalmic (eye) QPM gabapentin 100 mg capsule PO Patient Comments: TAKE 1 CAPSULE BY MOUTH EVERY DAY AT BEDTIME spironolactone 25 mg tablet 25 mg PO DAILY Qty: 30 5RF Jardiance 10 mg tablet 10 mg PO DAILY Qty: 30 5RF atorvastatin 40 MG tablet 40 mg PO QHS Patient Comments: cholesterol omeprazole 20 MG capsule 20 mg PO DAILY Patient Comments: acid reflux tamsulosin 0.4 mg capsule 0.8 mg PO Q24H Patient Comments: increase urine flow pramipexole 1 mg tablet 2 mg PO QHS tramadol 50 mg tablet 50 mg PO Q12H PRN (Reason: pain) Patient Comments: take 1 tablet by mouth twice a day ferrous gluconate 324 mg (37.5 mg iron) tablet 324 mg PO DAILY Patient Comments: TAKE 1 TABLET BY MOUTH EVERY DAY Arnuity Ellipta 200 mcg/actuation blister with device 1 inh INHALATION Q24H Patient Comments: INHALE 1 PUFF BY MOUTH EVERY DAY WITH GOOD ORAL CARE furosemide 40 mg tablet 40 mg PO DAILY Patient Comments: take 1 tablet by mouth once daily enalapril maleate 10 mg tablet 5 mg PO BID Qty: 90 3RF Primary Care Provider: Waqar Wright Referrals: Waqar Wright DO [Primary Care Provider] -
--- NOTE | 2023-05-27 11:02 | ED.VIS.CHEST ---
HPI History of Present Illness Chief Complaint: Chest Pain Narrative Narrative: 77-year-old male presenting for chest pain. Patient states that onset was about last night at 1 AM and lasted a couple hours or possibly 3 hours. Patient was in bed. Patient states he no longer has any chest discomfort. He is not lightheaded or dizzy. He has no nausea or vomiting. No fevers or chills. Patient admits to history of cardiac disease including CHF, CAD, [place]. He also has a history of GERD and hiatal hernia. Patient denies any weight gain or significant swelling of his lower extremities. Patient states after his chest pain resolved he noticed that he felt achy all over. Patient describes his chest pain as discomfort and it is all over his chest and he states it radiates from the upper chest down to the mid abdomen. He describes this as crampy and uncomfortable. [facility] Medical History Ambulates with cane Anemia Anxiety Arthritis Asthma Atherosclerosis of [place] coronary artery of [place] heart without angina pectoris Back pain BPH (benign prostatic hyperplasia) Cardiology follow-up encounter Chronic serous otitis media of right ear COPD (chronic obstructive pulmonary disease) CPAP (continuous positive airway pressure) dependence Depression Dysphagia Easy bruising Essential (primary) hypertension Gastric reflux Hiatal hernia High cholesterol History of echocardiogram History of edema History of hiatal hernia History of kidney stones History of pain when walking History of pulmonary embolism History of stress test Hyperlipidemia Hypertension Nephrolithiasis Neuropathy Non-smoker RENALDO (obstructive sleep apnea) Presence of stent in coronary artery (~09/21/11) Restless legs Rheumatoid arthritis Shortness of breath on exertion Sleep apnea Thyroid disease Wears glasses Home Medications atorvastatin 40 mg tablet 40 mg PO QHS 12/18/12 [History Last Taken 05/27/23] omeprazole 20 mg capsule,delayed release 20 mg PO DAILY 12/18/12 [History Last Taken 05/27/23] albuterol sulfate 90 mcg/actuation aerosol inhaler (ProAir HFA) 2 puff inhalation Q6H PRN Sob &/Or Wheezing 07/07/17 [History Last Taken 05/27/23] nitroglycerin 0.4 mg sublingual tablet 0.4 mg sublingual Q5M PRN Chest Pain #90 tabs 07/13/17 [Rx Last Taken Unknown] levothyroxine 100 mcg tablet 100 mcg PO DAILY 05/30/18 [History Last Taken 05/27/23] tamsulosin 0.4 mg capsule 0.4 mg PO Q24H 05/30/18 [History Last Taken 05/27/23] aspirin 81 mg tablet,delayed release (Adult Low Dose Aspirin) 81 mg PO DAILY 05/25/19 [History Last Taken 05/27/23] fluticasone furoate 100 mcg-vilanterol 25 mcg/dose inhalation powder (Breo Ellipta) 1 inh inhalation DAILY 05/05/20 [History Last Taken 05/26/23] metoprolol succinate 25 mg tablet,extended release 24 hr 25 mg PO DAILY 10/16/20 [History Last Taken 10/05/21] hydroxychloroquine 200 mg tablet 200 mg PO DAILY 11/05/21 [History Last Taken 05/27/23] cyanocobalamin (vitamin B-12) 1,000 mcg/mL injection kit 100 mcg IM QMONTH 05/13/22 [History Last Taken 05/05/23] ferrous sulfate 325 mg (65 mg iron) tablet 325 mg PO DAILY 05/13/22 [History Last Taken 05/27/23] finasteride 5 mg tablet 5 mg PO DAILY 05/13/22 [History Last Taken 05/27/23] latanoprost 0.005 % eye drops 1 drp ophthalmic (eye) QPM 05/13/22 [History Last Taken 05/26/23] empagliflozin 10 mg tablet (Jardiance) 10 mg PO DAILY #30 tabs 05/05/23 [Rx Last Taken 05/27/23] gabapentin 100 mg capsule 100 mg PO QHS 05/05/23 [History Last Taken 05/26/23] pramipexole 1 mg tablet 3 mg PO QHS RLS 05/05/23 [History Last Taken 05/26/23] spironolactone 25 mg tablet 25 mg PO DAILY #30 tabs 05/05/23 [Rx Last Taken 05/27/23] fluticasone furoate 200 mcg/actuation blister powder for inhalation (Arnuity Ellipta) 1 inh inhalation Q24H 05/27/23 [History Last Taken 05/26/23] Allergy/AdvReac Type Severity Reaction Status Date / Time Antihistamines - AdvReac Other Verified 05/27/23 09:52 Ethylenediamine Family History Father CAD (coronary artery disease) Mother CAD (coronary artery disease) Breast cancer Colon cancer Diabetes Brother CAD (coronary artery disease) CVA (cerebral vascular accident) Diabetes Surgical History History of back surgery (~04/19/17) History of back surgery History of cardiac catheterization History of cholecystectomy History of cystoscopy History of ear surgery History of esophagogastroduodenoscopy (EGD) History of total left knee replacement History of total right knee replacement (TKR) (~03/17/16) Hx of appendectomy Hx of bilateral cataract extraction Hx of colonoscopy Hx of right knee surgery Presence of coronary angioplasty implant and graft (~09/21/11) Social History Smoking Status: Never smoker alcohol intake: never substance use type: does not use caffeine: Yes Type: carbonated beverages Number of servings: 1 what type of physical activity do you participate in: none seatbelt use: always do you feel safe at home: Yes ROS ROS ED Constitutional Constitutional ED: Denies chills, fever(s) or sweats Eyes Eyes: Denies blurry vision or change in vision ENT ENT ED: Denies ear pain or sore throat Cardiovascular Cardiovascular: Reports chest pain; Denies palpitations or racing heartbeat Respiratory/Chest Respiratory/Chest: Denies cough, dyspnea or sputum Gastrointestinal Gastrointestinal: Denies abdominal pain, constipation, diarrhea, nausea or vomiting Genitourinary Genitourinary ED: Denies dysuria, hematuria or urinary frequency Musculoskeletal Musculoskeletal: Denies arthralgias, myalgias or neck pain Integumentary Denies abscess, Abrasions or rash Neurologic Neurologic: Denies headache(s), paresthesias or weakness Psychiatric Psychiatric: Denies anxiety, depression, suicidal ideation or suicidal thoughts Endocrine Endocrinology: Denies polydipsia or polyuria EXAM Physical Exam Const Vital Signs: 05/27/23 09:52 05/27/23 10:03 05/27/23 10:03 Temperature 97.1 F L Temperature Source Temporal Pulse Rate 72 70 Respiratory Rate 18 16 Respiratory Effort Normal Non-Labored Blood Pressure 207/100 H Blood Pressure Mean 135 Pulse Ox 99 Oxygen Delivery Method Room Air Room Air 05/27/23 10:37 05/27/23 11:00 Temperature Temperature Source Pulse Rate 62 Respiratory Rate 16 Respiratory Effort Blood Pressure 184/98 H Blood Pressure Mean 126 Pulse Ox 99 Oxygen Delivery Method Room Air Room Air Positive well nourished General Appearance ED: NAD HEENT Reports moist mucous membranes normocephalic Eyes PERRL and EOMs intact bilaterally Chest Wall inspection of chest normal Resp normal respiratory effort and clear to auscultation bilaterally Auscultation: Negative for rales, rhonchi or wheezes Cardio regular rate and regular rhythm GI normal to inspection, nondistended, normoactive bowel sounds Neuro oriented x3 and CN's II-XII intact bilaterally Sensorium / Orientation: awake and alert Psych mental status grossly normal Skin no rashes or lesions noted Heart Score History: Slightly/Non-Suspicious ECG: Normal Age: >/= 65 years Risk Factors: >/= 3 Risk Factors or History of CAD Troponin: >/=3 x Normal Limit Score: 6 MDM MDM MDM Narrative Medical decision making narrative: Patient presenting chest pain which is resolved. Describes it from the upper chest to the mid abdomen. He has history of hypertension and is very hypertensive today. Also has cardiac history. Given patient's pain we did obtain a CTA of the chest abdomen pelvis to rule out dissection or PE. This was negative. CBC was obtained to assess for blood cell count, hemoglobin, platelets. BMP to assess renal function, electrolytes, glucose. PT/INR to assess for coagulopathy. High-sensitivity troponin EKG and chest x-ray manage EKG on my interpretation shows sinus rhythm at a ventricular rate of 71 bpm with first-degree AV block. Chest x-ray my interpretation shows no acute process. Radiology interprets this and states there is a density behind the cardiac silhouette which could represent hiatal hernia. CTA showed moderate hiatal hernia. No evidence of dissection or PE. No infiltrates. Patient's blood pressure was elevated today and after speak with Dr. Stephens recommendation for labetalol. Blood pressure came down from 207/100 to 184/98. Heart rate from 72-62. Following high-sensitivity troponin came back [place] 1199. Dr. Kwong recommended heparin drip. He did come see the patient at the bedside. Patient will be admitted to medicine for further management. Patient currently chest pain-free. Impression: 1. Chest pain 2. NSTEMI 3. Hypertension 4. Hiatal hernia Lab Data Attestation: I reviewed the patient's lab results. Labs: Laboratory Results - last 24 hr 05/27/23 10:15 WBC 7.4 RBC 4.68 Hgb 15.0 Hct 46.0 MCV 98.3 H MCH 32.1 H MCHC 32.6 RDW Std Deviation 47.8 H RDW Coeff of [place] 13.3 Plt Count MPV 11.3 Immature Gran % (Auto) 0.400 Neut % (Auto) 72.9 H Lymph % (Auto) 17.3 L [place] % (Auto) 7.3 Eos % (Auto) 1.6 Baso % (Auto) 0.5 Absolute Neuts (auto) 5.4 Absolute Lymphs (auto) 1.28 Nucleated RBC % 0 Platelet Estimate ADEQUATE PT 12.4 INR 0.9 APTT 22.8 L Sodium 140 Potassium 3.6 Chloride 112 H Carbon Dioxide 22.0 Anion Gap 6 BUN 16 Creatinine 1.59 H Estim Creat Clear Calc 41.77 Est GFR (MDRD) Af Amer 54 L Est GFR (MDRD) Non-Af 45 L BUN/Creatinine Ratio 10.1 Glucose 104 Calcium 9.2 Troponin I High Sens 1199 H* Radiography Diagnostic Testing: Clinical Impression(s) from Imaging Studies Chest X-Ray 05/27/23 10:33 IMPRESSION: 1. Mild enlargement of the cardiac silhouette. 2. Retrocardiac density could reflect hiatal hernia. CT scan the chest might be of value. Electronically Signed: Ulysses Rivas MD at 10:53 EST Reading Location ID and State: [id number] / [place] Tel , Service support , Chest/Abdomen/Pelvis CTA 05/27/23 11:08 IMPRESSION: 1. No evidence of aortic aneurysm or dissection. 2. No pulmonary mass, adenopathy or focal acute pulmonary infiltrates. 3. Moderate to large hiatal hernia appears to be paraesophageal. 4. Diverticulosis without evidence of acute diverticulitis. 5. Umbilical hernia containing small bowel loop without evidence of obstruction. Electronically Signed: Ulysses Rivas MD at 11:45 EST , Discharge Plan Triage Chief Complaint: Chest Pain ED Provider: Arnoldo Mulligan Dx/Rx/DC Orders Prescriptions: No Action nitroglycerin 0.4 mg tablet, sublingual 0.4 mg SUBLINGUAL Q5M PRN (Reason: Chest Pain) Qty: 90 6RF albuterol sulfate [ProAir HFA] 90 mcg/actuation HFA aerosol inhaler 2 puff INHALATION Q6H PRN (Reason: Sob &/Or Wheezing) levothyroxine 100 mcg tablet 100 mcg PO DAILY aspirin [Adult Low Dose Aspirin] 81 mg tablet,delayed release (DR/EC) 81 mg PO DAILY Breo Ellipta 100-25 mcg/dose blister with device 1 inh INHALATION DAILY metoprolol succinate 25 mg tablet extended release 24 hr 25 mg PO DAILY hydroxychloroquine 200 mg tablet 200 mg PO DAILY ferrous sulfate 325 mg (65 mg iron) tablet 325 mg PO DAILY finasteride 5 mg tablet 5 mg PO DAILY cyanocobalamin (vitamin B-12) 1,000 mcg/mL kit 100 mcg IM QMONTH latanoprost 0.005 % drops 1 drp ophthalmic (eye) QPM gabapentin 100 mg capsule 100 mg PO QHS Patient Comments: TAKE 1 CAPSULE BY MOUTH EVERY DAY AT BEDTIME spironolactone 25 mg tablet 25 mg PO DAILY Qty: 30 5RF Jardiance 10 mg tablet 10 mg PO DAILY Qty: 30 5RF atorvastatin 40 MG tablet 40 mg PO QHS Patient Comments: cholesterol omeprazole 20 MG capsule 20 mg PO DAILY Patient Comments: acid reflux tamsulosin 0.4 mg capsule 0.4 mg PO Q24H Patient Comments: increase urine flow pramipexole 1 mg tablet 3 mg PO QHS Arnuity Ellipta 200 mcg/actuation blister with device 1 inh INHALATION Q24H Patient Comments: INHALE 1 PUFF BY MOUTH EVERY DAY WITH GOOD ORAL CARE Primary Care Provider: Waqar Wright Referrals: Waqar Wright DO [Primary Care Provider] -
[2023-05-27 11:08] LABS: Anion Gap 6 (5-15); BUN 16 mg/dL (7-18); BUN/Creat Ratio 10.1 RATIO (10-20); Calcium,Total 9.2 mg/dL (8.5-10.1); Chloride 112 mmol/L (98-107); Creatinine, Serum 1.59 mg/dL (0.70-1.30); EST Glomerular Filtration Rate 45 mL/min (>60); Est Glom Filt Rate - Afr Amer 54 mL/min (>60); Estimated Creatinine Clearance 41.77 ml/min; Glucose 104 mg/dL (74-106); Potassium 3.6 mmol/L (3.5-5.1); Sodium Level 140 mmol/L (136-145); Troponin-I HS (w/2H Reflex) 1199 pg/mL (3.0-78.0)
--- NOTE | 2023-05-27 11:08 | CT_ITS ---
INDICATION: Chest pain EXAMINATION: CTA CHEST, ABDOMEN AND PELVIS WITH CONTRAST - TECHNIQUE: A CTA of the chest, abdomen, and pelvis is obtained with sagittal and coronal reconstructed MIP views. Three-dimensional surface rendered sequence of the thoracic and abdominal aorta was obtained. A radiation dose optimization technique was used for this scan. 100 mL of Isovue-370. Oral contrast: None. RADIATION DOSAGE (If Supplied By Facility): CTDIvol = ( 18.45 ) mGy, DLP = ( 1369.60 ) mGycm COMPARISON: No relevant prior comparison study available FINDINGS: THORACIC AORTA: Atherosclerotic calcifications of the aortic arch. No evidence of thoracic aortic aneurysm or dissection. ABDOMINAL AORTA: Mild atherosclerotic calcifications. No evidence of aortic aneurysm or dissection. Unremarkable celiac axis and SMA. Mild calcifications at the origin of the right renal artery without significant stenosis. Calcifications in the origin of the left renal artery with mild to moderate stenosis. Unremarkable right knee. Atherosclerotic calcifications and tortuosity of the common iliac arteries bilaterally. CT CHEST: LUNGS: 2 mm right upper lobe nodule for which no further follow-up exam is needed. No focal infiltrate. No other pulmonary nodules. No evidence of pleural effusions. MEDIASTINUM: The thyroid gland is normal. No mediastinal or hilar adenopathy. HEART: Heart is normal size. No pericardial effusion. Coronary calcifications. CT ABDOMEN AND PELVIS: LIVER: The liver enhances homogeneously. No masses identified. Suboptimal evaluation due to arterial phase of scanning. GALLBLADDER: Absent gallbladder consistent with previous cholecystectomy. SPLEEN: Normal. PANCREAS: No masses or inflammation. ADRENAL GLANDS: Normal. KIDNEYS AND URETERS: 3 cm simple cyst in the upper pole of the left kidney for which no further follow-up exam is needed. Smaller similar cyst in the right kidney . No hydronephrosis or nephrolithiasis. No evidence of renal stones. STOMACH: Moderate size hiatal hernia which appears to be paraesophageal. SMALL BOWEL: No abnormal distention of the small bowel. MESENTERY: No mesenteric inflammation. No ascites. COLON: Colonic diverticulosis without evidence of acute diverticulitis. The appendix is not definitely identified.. IVC: Normal. RETROPERITONEUM: No retroperitoneal lymphadenopathy. PELVIC STRUCTURES: Normal bladder. Slightly prominent prostate. SOFT TISSUES ABDOMEN: Umbilical hernia containing small bowel loop without evidence of bowel obstruction at this time. SOFT TISSUE CHEST: The extrathoracic soft tissues are normal. BONES: Degenerative changes. Fusion of the lumbar spine from L2 to L5 with pedicle screws. CT/CTA Chst, Abd, Pel W and/or WO IMPRESSION: 1. No evidence of aortic aneurysm or dissection. 2. No pulmonary mass, adenopathy or focal acute pulmonary infiltrates. 3. Moderate to large hiatal hernia appears to be paraesophageal. 4. Diverticulosis without evidence of acute diverticulitis. 5. Umbilical hernia containing small bowel loop without evidence of obstruction. Electronically Signed: Ulysses Rivas MD at 11:45 EST ,
[2023-05-27 11:28] LABS: Differential Indicated SCAN CRITERIA MET
[2023-05-27 11:29] LABS: Platelet Estimate ADEQUATE (ADEQ)
[2023-05-27] MEDS: Labetalol (Prefilled) 20 MG/4 ML IV (11:29)
[2023-05-27] MEDS: Heparin Injection (Vial) 5,000 UNIT/ML VIAL 4000 UNIT IV (12:13)
[2023-05-27] MEDS: HEPARIN/D5w 25,000 UNITS 25,000 UNITS/250 ML IV.SOLN. 10 UNITS CONT INF (12:13)
[2023-05-27 12:18] LABS: International Normalized Ratio 0.9; Prothrombin Time (Protime)PT. 12.4 SECONDS (11.7-14.9)
[2023-05-27 12:21] LABS: Partial Thromboplast Time 22.8 Seconds (24.1-36.2)
[2023-05-27 12:37] LABS: Reflex Troponin-HS? (from REC) Y
--- NOTE | 2023-05-27 12:42 | PCM.CONS.C ---
Assessment & Plan Assessment/Plan (1) Elevated troponin: PLAN: The patient's troponins are elevated slightly over 1100. The symptoms are different than his previous anginal symptoms and there is no definitive EKG changes. His blood pressure was over 200/170 on presentation. This may very well be demand ischemia but it could be a non-ST segment elevation infarct as well. The patient will be evaluated with echocardiogram and heparin will be instituted and added to his aspirin. His blood pressure will be controlled he was given labetalol we will increase his antihypertensive orally (2) Hypertensive urgency: PLAN: Blood pressure severely elevated on presentation. He was treated successfully with labetalol blood pressure is staying in the 180 systolic range. His metoprolol be switched to Coreg 25 mg twice daily. Will increase his enalapril dose as well. (3) Heart failure: QUALIFIERS: Heart failure type: diastolic Heart failure chronicity: acute on chronic Qualified Code(s): I50.33 - Acute on chronic diastolic (congestive) heart failure PLAN: The patient has a history of heart failure with preserved ejection fraction. He carries a history of obstructive sleep apnea and hypertension is the most likely etiologies. We had recently a month ago switched him from Lasix to spironolactone for better antihypertensive control and treatment of his heart failure with preserved ejection fraction. He is already on appropriate therapy with PEDRO inhibitor beta-bharathi and empagliflozin. (4) Presence of stent in coronary artery: PLAN: The patient has known coronary disease status post stenting of the right coronary artery in 2011. His LV function was normal at that time. We will reevaluate an echocardiogram to evaluate LV wall motion abnormalities. Pending the outcome of the echo and subsequent trending of his enzymes and monitoring of his EKGs we will make a decision concerning further evaluation invasively versus noninvasively for treating him medically. He does have a history of renal insufficiency in the past which is markedly improved currently. Need to be judicious about dye exposure as he received the CTA today. (5) Hyperlipidemia: QUALIFIERS: Hyperlipidemia type: unspecified Qualified Code(s): E78.5 - Hyperlipidemia, unspecified PLAN: Patient should be continued on aggressive statin therapy target LDL cholesterol is less than 70. (6) Hiatal hernia: PLAN: CT scan today ruled out dissection but noted a retrocardiac process that was identified as a hiatal hernia. PLAN: Plan 1. Will heparinize the patient. 2. Will change metoprolol to Coreg 25 mg twice daily and increase enalapril dose to maximum dose. 3. Monitor the basic metabolic panel for electrolytes and renal function he has a history of renal insufficiency in the past although the last check showed his creatinine and almost normalized. He is followed by Dr. Annita Ely for nephrology. 4. Check a 2D echo to evaluate his LV function and regional wall motion. 5. Obtain serial enzymes and EKGs. HPI Consult Data Date of Consult: 05/27/23 HPI Narrative Reason for Consultation: Chest tightness with positive troponins. HPI Narrative: IMAN ANDREA, is a 77 M who presents the patient presents department earlier this morning. At approximately 130 was awakened from sleep with a chest cramping sensation across his upper thorax this occurred after he had used an inhaler treatment. It was associated with some pain. This was different than what he had experienced with his right coronary artery stenting procedure that he describes as a diffuse pressure with no real pain at all. Reportedly has normal LV function by his report. The patient was severely hypertensive with systolic over 200 and diastolic in the 170 range on presentation. He was treated with IV labetalol 20 mg blood pressure is slowly coming down to 170/87 his heart rate 68 and his respiratory rate was 20 and he is asymptomatic. He came to the emergency department this morning after he had a second event that was different he had bilateral arm achiness and joint pain in his hands and elbows. This again was different than what he had experienced with his cardiac event his first tightness episode that occurred at 1:30 in the morning lasting 1 to 2 hours and resolved spontaneously. This event also resolved spontaneously. A CTA was performed that reportedly shows no evidence of dissection. Patient had a right coronary artery stenting procedure done back in September 2011 I saw him in the office in mid April we made some minor adjustments on his medications switching him from Lasix to spironolactone for better blood pressure control. The patient is resting comfortably on the gurney in the emergency room and now and appears to be in no apparent distress. His home medicine includes enalapril Lopressor and spironolactone. He is also on empagliflozin and atorvastatin 40 mg daily with a baby aspirin. His initial troponin was approximately 6 hours after the onset of his symptoms was 1199. His EKG did not show any significant ischemic changes. [facility] Medical History Ambulates with cane Anemia Anxiety Arthritis Asthma Atherosclerosis of [place] coronary artery of [place] heart without angina pectoris Back pain BPH (benign prostatic hyperplasia) Cardiology follow-up encounter Chronic serous otitis media of right ear COPD (chronic obstructive pulmonary disease) CPAP (continuous positive airway pressure) dependence Depression Dysphagia Easy bruising Essential (primary) hypertension Gastric reflux Hiatal hernia High cholesterol History of echocardiogram History of edema History of hiatal hernia History of kidney stones History of pain when walking History of pulmonary embolism History of stress test Hyperlipidemia Hypertension Nephrolithiasis Neuropathy Non-smoker RENALDO (obstructive sleep apnea) Presence of stent in coronary artery (~09/21/11) Restless legs Rheumatoid arthritis Shortness of breath on exertion Sleep apnea Thyroid disease Wears glasses Home Medications atorvastatin 40 mg tablet 40 mg PO QHS 12/18/12 [History Last Taken 05/27/23] omeprazole 20 mg capsule,delayed release 20 mg PO DAILY 12/18/12 [History Last Taken 05/27/23] albuterol sulfate 90 mcg/actuation aerosol inhaler (ProAir HFA) 2 puff inhalation Q6H PRN Sob &/Or Wheezing 07/07/17 [History Last Taken 05/27/23] nitroglycerin 0.4 mg sublingual tablet 0.4 mg sublingual Q5M PRN Chest Pain #90 tabs 07/13/17 [Rx Last Taken Unknown] levothyroxine 100 mcg tablet 100 mcg PO DAILY 05/30/18 [History Last Taken 05/27/23] tamsulosin 0.4 mg capsule 0.4 mg PO Q24H 05/30/18 [History Last Taken 05/27/23] aspirin 81 mg tablet,delayed release (Adult Low Dose Aspirin) 81 mg PO DAILY 05/25/19 [History Last Taken 05/27/23] fluticasone furoate 100 mcg-vilanterol 25 mcg/dose inhalation powder (Breo Ellipta) 1 inh inhalation DAILY 05/05/20 [History Last Taken 05/26/23] metoprolol succinate 25 mg tablet,extended release 24 hr 25 mg PO DAILY 10/16/20 [History Last Taken 10/05/21] hydroxychloroquine 200 mg tablet 200 mg PO DAILY 11/05/21 [History Last Taken 05/27/23] cyanocobalamin (vitamin B-12) 1,000 mcg/mL injection kit 100 mcg IM QMONTH 05/13/22 [History Last Taken 05/05/23] ferrous sulfate 325 mg (65 mg iron) tablet 325 mg PO DAILY 05/13/22 [History Last Taken 05/27/23] finasteride 5 mg tablet 5 mg PO DAILY 05/13/22 [History Last Taken 05/27/23] latanoprost 0.005 % eye drops 1 drp ophthalmic (eye) QPM 05/13/22 [History Last Taken 05/26/23] empagliflozin 10 mg tablet (Jardiance) 10 mg PO DAILY #30 tabs 05/05/23 [Rx Last Taken 05/27/23] gabapentin 100 mg capsule 100 mg PO QHS 05/05/23 [History Last Taken 05/26/23] pramipexole 1 mg tablet 3 mg PO QHS RLS 05/05/23 [History Last Taken 05/26/23] spironolactone 25 mg tablet 25 mg PO DAILY #30 tabs 05/05/23 [Rx Last Taken 05/27/23] fluticasone furoate 200 mcg/actuation blister powder for inhalation (Arnuity Ellipta) 1 inh inhalation Q24H 05/27/23 [History Last Taken 05/26/23] Allergy/AdvReac Type Severity Reaction Status Date / Time Antihistamines - AdvReac Other Verified 05/27/23 09:52 Ethylenediamine Family History Father CAD (coronary artery disease) Mother CAD (coronary artery disease) Breast cancer Colon cancer Diabetes Brother CAD (coronary artery disease) CVA (cerebral vascular accident) Diabetes Surgical History History of back surgery (~04/19/17) History of back surgery History of cardiac catheterization History of cholecystectomy History of cystoscopy History of ear surgery History of esophagogastroduodenoscopy (EGD) History of total left knee replacement History of total right knee replacement (TKR) (~03/17/16) Hx of appendectomy Hx of bilateral cataract extraction Hx of colonoscopy Hx of right knee surgery Presence of coronary angioplasty implant and graft (~09/21/11) Social History Smoking Status: Never smoker alcohol intake: never substance use type: does not use caffeine: Yes Type: carbonated beverages Number of servings: 1 what type of physical activity do you participate in: none seatbelt use: always do you feel safe at home: Yes ROS Constitutional Constitutional: Reports as per HPI Eyes Eyes: Reports systems reviewed and no addt'l complaints, except as documented ENT HEENT: Reports systems reviewed and no addt'l complaints, except as documented Cardiovascular Cardiovascular: Reports as per HPI Respiratory/Chest Respiratory/Chest: Reports as per HPI Gastrointestinal Gastrointestinal: Reports change in bowel habits Genitourinary Genitourinary: Reports systems reviewed and no addt'l complaints, except as documented Musculoskeletal Musculoskeletal: Reports as per HPI Integumentary Integumentary: Reports systems reviewed and no addt'l complaints, except as documented Neurologic Neurologic: Reports systems reviewed and no addt'l complaints, except as documented Psychiatric Psychiatric: Reports systems reviewed and no addt'l complaints, except as documented Endocrine Endocrinology: Reports as per HPI Hematologic/Lymphatic Hematologic/Lymphatic: Reports systems reviewed and no addt'l complaints, except as documented Allergic/Immunologic Allergic/Immunologic: Reports systems reviewed and no addt'l complaints, except as documented Physical Exam Const oriented x3 and no apparent distress HEENT normocephalic Eyes EOMs intact bilaterally Neck no JVD and no carotid bruits Chest inspection of chest normal Resp normal respiratory effort Auscultation: crackles bilateral base Cardio regular rate, regular rhythm, S1 normal heart sound, S2 normal heart sound, no murmurs, no rub and no gallops Peripheral Pulses: radial pulses present right 2+ and posterior tibial pulses present bilateral 1+ GI soft to palpation and no bruits Extremity no pedal edema Skin no rashes or lesions noted Neuro Neuro Narrative: Alert and oriented x 3. Psych mental status grossly normal Risk Stratification Risk Stratification Applicable: Yes Age >/= 65: Yes >/= 3 CAD Risk Factors (HTN, HLD, DM, family hx of CAD, or current smoker): Yes Aspirin Use in the Past 7 Days: Yes Severe Angina (>/= episodes in 24 hours): Yes EKG ST Changes >/= 0.5mm: No Positive Cardiac Marker: Yes AMILCAR Risk Stratification Score: 5 AMILCAR % Risk: 25% Risk Charges/Coding Visit Charges Inpatient E&M: 07761 Init Hosp L3 Objective Data Vital Signs: Vital Signs Temp Pulse Resp BP Pulse Ox O2 Del Method 97.1 F L 62 16 184/98 H 99 Room Air 05/27/23 09:52 05/27/23 11:00 05/27/23 11:00 05/27/23 11:00 05/27/23 11:00 05/27/23 11:00 Oxygen Delivery Method Room Air Weight: 205 lb 14.588 oz Body Mass Index (BMI) 30.4 Lab / Micro Data 05/27/23 10:15 05/27/23 10:15 Labs: Laboratory Results - last 24 hr 05/27/23 10:15: WBC 7.4, RBC 4.68, Hgb 15.0, Hct 46.0, MCV 98.3 H, MCH 32.1 H, MCHC 32.6, RDW Std Deviation 47.8 H, RDW Coeff of [place] 13.3, Plt Count , MPV 11.3, Immature Gran % (Auto) 0.400, Neut % (Auto) 72.9 H, Lymph % (Auto) 17.3 L, [place] % (Auto) 7.3, Eos % (Auto) 1.6, Baso % (Auto) 0.5, Absolute Neuts (auto) 5.4, Absolute Lymphs (auto) 1.28, Nucleated RBC % 0, Platelet Estimate ADEQUATE, PT 12.4, INR 0.9, APTT 22.8 L, Sodium 140, Potassium 3.6, Chloride 112 H, Carbon Dioxide 22.0, Anion Gap 6, BUN 16, Creatinine 1.59 H, Estim Creat Clear Calc 41.77, Est GFR (MDRD) Af Amer 54 L, Est GFR (MDRD) Non-Af 45 L, BUN/Creatinine Ratio 10.1, Glucose 104, Calcium 9.2, Troponin I High Sens 1199 H* Rhythm Strip Rhythm Strip: Sinus Rhythm Rate: 60 Cardiology Labs/Tests 05/27/23 10:15: WBC 7.4, RBC 4.68, Hgb 15.0, Hct 46.0, MCV 98.3 H, MCH 32.1 H, MCHC 32.6, Plt Count , MPV 11.3, Immature Gran % (Auto) 0.400, Neut % (Auto) 72.9 H, Lymph % (Auto) 17.3 L, [place] % (Auto) 7.3, Eos % (Auto) 1.6, Baso % (Auto) 0.5, Absolute Neuts (auto) 5.4, Nucleated RBC % 0, PT 12.4, INR 0.9, APTT 22.8 L, Sodium 140, Potassium 3.6, Chloride 112 H, Carbon Dioxide 22.0, Anion Gap 6, BUN 16, Creatinine 1.59 H, Est GFR (MDRD) Af Amer 54 L, Est GFR (MDRD) Non-Af 45 L, BUN/Creatinine Ratio 10.1, Glucose 104, Calcium 9.2 Rhythm: EKG: ECHO: Stress Test: Cardiac Cath: PCI: CT Surgery: Holter monitor: EPS: PPM: CXR: Chest CT Scan: Radiography Diagnostic Testing: Radiology Impression Chest X-Ray 05/27/23 10:33 IMPRESSION: 1. Mild enlargement of the cardiac silhouette. 2. Retrocardiac density could reflect hiatal hernia. CT scan the chest might be of value. Electronically Signed: Ulysses Rivas MD at 10:53 EST , Chest/Abdomen/Pelvis CTA 05/27/23 11:08 IMPRESSION: 1. No evidence of aortic aneurysm or dissection. 2. No pulmonary mass, adenopathy or focal acute pulmonary infiltrates. 3. Moderate to large hiatal hernia appears to be paraesophageal. 4. Diverticulosis without evidence of acute diverticulitis. 5. Umbilical hernia containing small bowel loop without evidence of obstruction. Electronically Signed: Ulysses Rivas MD at 11:45 EST , EKG Initial EKG: Attestation: I personally reviewed and interpreted this EKG as follows: Interpretation: Normal sinus rhythm with first-degree AV block left axis deviation.. No definitive ischemic changes
--- NOTE | 2023-05-27 12:49 | PCM.HP.STD ---
HPI - General General Date of Admission: 05/27/23 Date of Service: 05/27/23 Chief Complaint: Chest discomfort HPI Narrative IMAN ANDREA, is a 77 M with past medical history seen for coronary artery disease with previous PCI with SAMANTHA to an RCA lesion in 2011 who presented with chest discomfort. Patient symptoms started the day prior to coming in discomfort was described as cramping across his entire chest. He did get some relief prior to going to bed. He however woke up with recurrence of his symptoms as well as shoulder and elbow pain. In view of the persistent nature of his symptoms he presented to the emergency department. On further questioning patient admitted to some shortness of breath denied any nausea no lightheadedness. Patient was found to have elevated troponin in the ED consistent with acute non-STEMI treatment initiated per protocol after consultation had been placed to cardiology patient admitted to monitored bed for further [facility] Medical History (Updated 05/27/23 @ 13:[address] Diego Em MD) Ambulates with cane Anemia Anxiety Arthritis Asthma Atherosclerosis of [place] coronary artery of [place] heart without angina pectoris Back pain BPH (benign prostatic hyperplasia) Cardiology follow-up encounter Chronic serous otitis media of right ear COPD (chronic obstructive pulmonary disease) CPAP (continuous positive airway pressure) dependence Depression Dysphagia Easy bruising Essential (primary) hypertension Gastric reflux Hiatal hernia High cholesterol History of echocardiogram History of edema History of hiatal hernia History of kidney stones History of pain when walking History of pulmonary embolism History of stress test Hyperlipidemia Hypertension Nephrolithiasis Neuropathy Non-smoker NSTEMI, initial episode of care RENALDO (obstructive sleep apnea) Presence of stent in coronary artery (~09/21/11) Restless legs Rheumatoid arthritis Shortness of breath on exertion Sleep apnea Thyroid disease Wears glasses Home Medications atorvastatin 40 mg tablet 40 mg PO QHS 12/18/12 [History Last Taken 05/27/23] omeprazole 20 mg capsule,delayed release 20 mg PO DAILY 12/18/12 [History Last Taken 05/27/23] albuterol sulfate 90 mcg/actuation aerosol inhaler (ProAir HFA) 2 puff inhalation Q6H PRN Sob &/Or Wheezing 07/07/17 [History Last Taken 05/27/23] nitroglycerin 0.4 mg sublingual tablet 0.4 mg sublingual Q5M PRN Chest Pain #90 tabs 07/13/17 [Rx Last Taken Unknown] levothyroxine 100 mcg tablet 100 mcg PO DAILY 05/30/18 [History Last Taken 05/27/23] tamsulosin 0.4 mg capsule 0.4 mg PO Q24H 05/30/18 [History Last Taken 05/27/23] aspirin 81 mg tablet,delayed release (Adult Low Dose Aspirin) 81 mg PO DAILY 05/25/19 [History Last Taken 05/27/23] fluticasone furoate 100 mcg-vilanterol 25 mcg/dose inhalation powder (Breo Ellipta) 1 inh inhalation DAILY 05/05/20 [History Last Taken 05/26/23] metoprolol succinate 25 mg tablet,extended release 24 hr 25 mg PO DAILY 10/16/20 [History Last Taken 10/05/21] hydroxychloroquine 200 mg tablet 200 mg PO DAILY 11/05/21 [History Last Taken 05/27/23] cyanocobalamin (vitamin B-12) 1,000 mcg/mL injection kit 100 mcg IM QMONTH 05/13/22 [History Last Taken 05/05/23] ferrous sulfate 325 mg (65 mg iron) tablet 325 mg PO DAILY 05/13/22 [History Last Taken 05/27/23] finasteride 5 mg tablet 5 mg PO DAILY 05/13/22 [History Last Taken 05/27/23] latanoprost 0.005 % eye drops 1 drp ophthalmic (eye) QPM 05/13/22 [History Last Taken 05/26/23] empagliflozin 10 mg tablet (Jardiance) 10 mg PO DAILY #30 tabs 05/05/23 [Rx Last Taken 05/27/23] gabapentin 100 mg capsule 100 mg PO QHS 05/05/23 [History Last Taken 05/26/23] pramipexole 1 mg tablet 3 mg PO QHS RLS 05/05/23 [History Last Taken 05/26/23] spironolactone 25 mg tablet 25 mg PO DAILY #30 tabs 05/05/23 [Rx Last Taken 05/27/23] fluticasone furoate 200 mcg/actuation blister powder for inhalation (Arnuity Ellipta) 1 inh inhalation Q24H 05/27/23 [History Last Taken 05/26/23] Allergy/AdvReac Type Severity Reaction Status Date / Time Antihistamines - AdvReac Other Verified 05/27/23 09:52 Ethylenediamine Family History Father CAD (coronary artery disease) Mother CAD (coronary artery disease) Breast cancer Colon cancer Diabetes Brother CAD (coronary artery disease) CVA (cerebral vascular accident) Diabetes Surgical History History of back surgery (~04/19/17) History of back surgery History of cardiac catheterization History of cholecystectomy History of cystoscopy History of ear surgery History of esophagogastroduodenoscopy (EGD) History of total left knee replacement History of total right knee replacement (TKR) (~03/17/16) Hx of appendectomy Hx of bilateral cataract extraction Hx of colonoscopy Hx of right knee surgery Presence of coronary angioplasty implant and graft (~09/21/11) Social History Smoking Status: Never smoker alcohol intake: never substance use type: does not use caffeine: Yes Type: carbonated beverages Number of servings: 1 what type of physical activity do you participate in: none seatbelt use: always do you feel safe at home: Yes ROS ROS Narrative GENERAL: denies fever, chills, night sweats, weight loss, anorexia HEENT: denies headache, sinus congestion, or drainage, dysphagia RESPIRATORY: shortness of breath, CARDIAC: chest pain, GASTROINTESTINAL: denies abdominal pain, nausea, vomiting, melena, GENITOURINARY: denies dysuria, urgency, frequency, heamaturia EXTREMITY: denies swelling MUSCULOSKELETAL: denies current joint pain or tenderness NEUROLOGIC: denies focal numbness, weakness, tingling HEMATOLOGIC: denies easy bruising and/or hemorrhage INTEGUMENT: denies rashes PSYCHIATRIC: denies suicidal or homicidal ideation Vital Signs Vital Signs Vital Signs: 05/27/23 09:52 05/27/23 10:03 05/27/23 10:03 Temperature 97.1 F L Temperature Source Temporal Pulse Rate 72 70 Respiratory Rate 18 16 Respiratory Effort Normal Non-Labored Blood Pressure 207/100 H Blood Pressure Mean 135 Pulse Ox 99 Oxygen Delivery Method Room Air Room Air 05/27/23 10:37 05/27/23 11:00 Temperature Temperature Source Pulse Rate 62 Respiratory Rate 16 Respiratory Effort Blood Pressure 184/98 H Blood Pressure Mean 126 Pulse Ox 99 Oxygen Delivery Method Room Air Room Air Weight Weight: 93.4 kg Body Mass Index (BMI) 30.4 Physical Exam Narrative GENERAL: cooperative HEENT: Atraumatic; normocephalic EYES; Anicteric, Normal Conjunctiva NECK; supple, normal thyroid, RESPIRATORY: Diminished to auscultation CARDIOVASCULAR: Regular S1 S2, GI: soft, normoactive bowel sounds, : No Renal angle tenderness; EXTREMITIES: No edema, no clubbing, MUSCULOSKELETAL: no muscle wasting NEURO: Awake; no lateralizing signs. SKIN: No Rash PSYCH; Flat affect Results Lab / Micro Data 05/27/23 10:15 05/27/23 10:15 Labs: Laboratory Results - last 24 hr 05/27/23 10:15: WBC 7.4, RBC 4.68, Hgb 15.0, Hct 46.0, MCV 98.3 H, MCH 32.1 H, MCHC 32.6, RDW Std Deviation 47.8 H, RDW Coeff of [place] 13.3, Plt Count , MPV 11.3, Immature Gran % (Auto) 0.400, Neut % (Auto) 72.9 H, Lymph % (Auto) 17.3 L, [place] % (Auto) 7.3, Eos % (Auto) 1.6, Baso % (Auto) 0.5, Absolute Neuts (auto) 5.4, Absolute Lymphs (auto) 1.28, Nucleated RBC % 0, Platelet Estimate ADEQUATE, PT 12.4, INR 0.9, APTT 22.8 L, Sodium 140, Potassium 3.6, Chloride 112 H, Carbon Dioxide 22.0, Anion Gap 6, BUN 16, Creatinine 1.59 H, Estim Creat Clear Calc 41.77, Est GFR (MDRD) Af Amer 54 L, Est GFR (MDRD) Non-Af 45 L, BUN/Creatinine Ratio 10.1, Glucose 104, Calcium 9.2, Troponin I High Sens 1199 H* Imaging Radiology Impression Chest X-Ray 05/27/23 10:33 IMPRESSION: 1. Mild enlargement of the cardiac silhouette. 2. Retrocardiac density could reflect hiatal hernia. CT scan the chest might be of value. Electronically Signed: Ulysses Rivas MD at 10:53 EST , Chest/Abdomen/Pelvis CTA 05/27/23 11:08 IMPRESSION: 1. No evidence of aortic aneurysm or dissection. 2. No pulmonary mass, adenopathy or focal acute pulmonary infiltrates. 3. Moderate to large hiatal hernia appears to be paraesophageal. 4. Diverticulosis without evidence of acute diverticulitis. 5. Umbilical hernia containing small bowel loop without evidence of obstruction. Electronically Signed: Ulysses Rivas MD at 11:45 EST , Assessment & Plan Assessment/Plan (1) NSTEMI, initial episode of care: PLAN: Plan Patient is a 77-year-old gentleman admitted with chest pain was found to have elevated troponin consistent with acute non-STEMI admitted to monitored bed for further management 1. Acute non-STEMI -Patient with previous coronary artery disease. Admitted to monitored bed treatment initiated per protocol with systemic anticoagulation with heparin beta-bharathi statin therapy. As part of his management subsequent serial cardiac enzymes and 2D echo ordered. Consult was placed to Dr. Kwong with cardiology from the ED. Definitive management including decision for left heart catheterization and intervention if warranted deferred to cardiology 2. Coronary artery disease ? With previous PCI with SAMANTHA to an RCA lesion in 2011. Patient is on guideline directed medical therapy 3. Essential hypertension ? Patient blood pressure control not optimal plan is to continue with home meds and adjust doses if needed 4. Rheumatoid arthritis ? Symptoms controlled on hydroxychloroquine did continue home dose 5. GERD ? On PPI 6. Class I obesity with BMI of 31 ? Complicating care weight loss advised 7. Hypothyroidism - Patient is on levothyroxine home dose continued 8. Restless leg syndrome ? Patient is on pramipexole did continue with home dose 9. Mild intermittent asthma ? Currently not in exacerbation did continue patient aerosol treatment 10. Chronic congestive heart failure with preserved ejection fraction ? Patient echo from 12/03/2020 demonstrated EF of 60%. Patient is on diuretic therapy currently remains euvolemic 11. BPH with lower urinary obstructive symptoms - Patient treated with tamsulosin 12. Dyslipidemia -Patient is on statin therapy, continued at home dose 13. DVT prophylaxis ? Started on systemic anticoagulation on admission continue Time spent in the patient's overall evaluation,decision-making process, review of diagnostic data, adjustment of management, discussion with other providers, nursing nursing and ancillary staff involved in patient's care documentation, 78 Minutes Advance planning; did discuss with the patient and family regarding advanced directives as well as CODE STATUS. Did explain the various scenarios involved ( FULL CODE, DNR CCA, DNR CCA with no intubation, and DNR CC and what each meant) patient elected to remain full code with CPR and intubation if needed. Order was placed. Time spent on discussion 18 minutes. Charges/Coding Visit Charges Inpatient E&M: 65350 Init Hosp L3 Procedures Hospitalists Procedures: 26186 Advncd Care Plan 30 Min
[2023-05-27 13:37] LABS: Troponin-I HS 2460 pg/mL (3.0-78.0)
--- NOTE | 2023-05-27 13:46 | EKG12_ITS ---
Test Reason : Blood Pressure : / mmHG Vent. Rate : 068 BPM Atrial Rate : 068 BPM P-R Int : 226 ms QRS Dur : 102 ms QT Int : 400 ms P-R-T Axes : 039 -46 -18 degrees QTc Int : 425 ms Sinus rhythm with 1st degree A-V block Left anterior fascicular block Nonspecific T wave abnormality Abnormal ECG When compared with ECG of 27-MAY-2023 10:00, MANUAL COMPARISON REQUIRED, DATA IS UNCONFIRMED Confirmed by Jone Kwong ([id number]), production editor TORRES PLATA ([id number]) on 05/31/2023 11:41:36 AM Referred By: JANET Confirmed By:Jone Kwong
--- NOTE | 2023-05-27 13:46 | ECHOD_ITS ---
Reason For Study: S/P CO Procedure This was a 2D Doppler, Color Flow transthoracic echocardiogram. Exam performed portable in patient room. Left Ventricle Normal LV size. Left ventricular systolic function is normal. The estimated ejection fraction is 55 %. Stage 1 diastolic dysfunction. Infero-Basal: Hypokinetic. There are regional wall motion abnormalities as specified. The rest of the wall segments are normal. Right Ventricle Normal RV size. Normal systolic function. Atria The left atrium is mildly enlarged. The right atrium is mildly enlarged. Mitral Valve Normal mitral valve. Tricuspid Valve Normal tricuspid valve. Aortic Valve Trisinus/trileaflet aortic valve. Mild (1+) aortic valve insufficiency. Pulmonic Valve Normal pulmonic valve. Great Vessels Mildly dilated aortic root. The pulmonary artery is normal size. Normal inferior vena cava. Pericardium/Pleural No pericardial effusion. MMode/2D Measurements & Calculations LVIDd: 4.5 cm IVSd: 0.90 cm Ao root diam: 4.0 cm LVIDs: 3.0 cm LVPWd: 1.0 cm LA dimension: 3.3 cm RVDd: 4.0 cm FS: 32.2 % LAV(MOD-bp): 59.4 ml LVAd ap4: 24.9 cm2 SV(MOD-sp4): 35.2 ml LAV(MOD-bp) Indexed: 28.7 ml/m2 LVLd ap4: 7.8 cm LAV(MOD-sp2): 56.5 ml EDV(MOD-sp4): 66.2 ml LAV(MOD-sp4): 58.4 ml EDV(sp4-el): 67.7 ml LVAs ap4: 15.5 cm2 LVLs ap4: 6.8 cm ESV(MOD-sp4): 31.0 ml ESV(sp4-el): 29.9 ml EF(MOD-sp4): 53.1 % EF(sp4-el): 55.8 % SV(sp4-el): 37.8 ml LA A4 area: 21.9 cm2 RA A4 area: 21.1 cm2 TAPSE: 2.8 cm Time Measurements MV dec time: 0.17 sec Doppler Measurements & Calculations MV E max david: 65.9 cm/sec Lat Peak E' David: 6.4 cm/sec Med Peak E' David: 7.4 cm/sec MV A max david: 95.2 cm/sec E/E' lat: 10.3 E/E' med: 8.9 MV E/A: 0.69 MV V2 max: 102.0 cm/sec MV P1/2t max david: 84.7 cm/sec Ao V2 max: 103.5 cm/sec MV max P.2 mmHg MV P1/2t: 68.9 msec Ao max P.3 mmHg MV V2 mean: 53.6 cm/sec MV dec slope: 359.8 cm/sec2 Ao V2 mean: 73.2 cm/sec MV mean P.3 mmHg Ao mean P.4 mmHg MV V2 VTI: 32.0 cm MVA(P1/2t): 3.2 cm2 Ao V2 VTI: 25.6 cm AV (velocity ratio): 0.95 AI max david: 477.5 cm/sec LV V1 max: 96.9 cm/sec PA V2 max: 58.5 cm/sec AI max P.2 mmHg LV V1 max P.8 mmHg AI dec slope: 125.6 cm/sec2 LV V1 mean P.1 mmHg AI P1/2t: 1113 msec LV V1 mean: 67.5 cm/sec LV V1 VTI: 24.3 cm ECHO/Echo Complete Interpretation Summary Normal LV size. Left ventricular systolic function is normal. The estimated ejection fraction is 55 %. Infero-Basal: Hypokinetic Stage 1 diastolic dysfunction. Mildly dilated aortic root. Ordering Physician: Diego Em Referring Physician: Waqar Wright Performed By: Sky Mancia RCS
[2023-05-27 15:33] LABS: Troponin-I HS 2771 pg/mL (3.0-78.0)
[2023-05-27 19:01] LABS: Partial Thromboplast Time 86.1 Seconds (24.1-36.2)
[2023-05-27] MEDS: Albuterol 2.5 MG/3 ML VIAL.NEB. INHALATION (19:25)
[2023-05-27] MEDS: Budesonide Respules 0.5 MG/2 ML AMPUL.NEB. INHALATION (19:25)
[2023-05-27] MEDS: Gabapentin 100 MG Capsule PO (21:09)
[2023-05-27] MEDS: Latanoprost 0.005% 1 Bottle 1 DRP EACH EYE (21:09)
[2023-05-27] MEDS: Pramipexole Di-HCl 1 MG Tablet 3 MG PO (21:09)
[2023-05-27] MEDS: Atorvastatin Calcium 40 MG Tablet PO (21:09)
[2023-05-28] VITALS (10 sets, daily range): BP systolic 154–177; BP diastolic 63–89; PULSE 70–86; RESP 14–20; TEMP 36.3–36.8; O2SAT 93–100; BMI 31.5
[2023-05-28 03:08] LABS: Absolute Lymphocyte Count 1.58 X10^3/uL (0.83-4.51); Absolute Neutrophil Count 5.8 X10^3/uL (2.0-7.7); Basophil# 0.06 X10^3/uL; Basophil% 0.7 % (0-1); Eosinophil# 0.13 X10^3/uL; Eosinophils% 1.6 % (0-5); Hematocrit 39.9 % (40-54); Hemoglobin 13.4 g/dL (13.0-16.5); Lymphocyte # 1.58 X10^3/ul (0.83-4.51); Lymphocyte % 18.9 % (19-41); Mean Corp Hgb Conc 33.6 g/dL (32-36); Mean Corpuscular Hgb 32.7 pg (27.0-32.0); Mean Corpuscular Volume 97.3 fL (80-94); Mean Platelet Vol. 10.6 fl (6.2-12.0); Monocyte# 0.78 X10^3/uL; Monocyte% 9.3 % (0-10); NRBC Flagged by Analyzer 0 % (0-5); Neutrophil # 5.79 X10^3/uL (2.7-7.7); Neutrophil % 69.1 % (47-70); Platelet Count 162 K/mm3 (150-450); RBC Distribution Width CV 13.4 % (11.6-14.6); RBC Distribution Width SD 48.1 fl (35.1-43.9); White Blood Count 8.4 K/mm3 (4.4-11.0)
[2023-05-28 03:24] LABS: Partial Thromboplast Time 71.3 Seconds (24.1-36.2)
[2023-05-28 03:27] LABS: AST(SGOT) 26 U/L (15-37); Alanine Aminotransfer ALT/SGPT 22 U/L (16-61); Albumin, Serum 3.2 g/dL (3.2-5.0); Alkaline Phosphatase 82 U/L (45-117); Anion Gap 6 (5-15); BUN 16 mg/dL (7-18); BUN/Creat Ratio 11.3 RATIO (10-20); Bilirubin, Direct 0.23 mg/dL (0.00-0.30); Calcium,Total 8.8 mg/dL (8.5-10.1); Chloride 112 mmol/L (98-107); Creatinine, Serum 1.41 mg/dL (0.70-1.30); EST Glomerular Filtration Rate 51 mL/min (>60); Est Glom Filt Rate - Afr Amer 62 mL/min (>60); Estimated Creatinine Clearance 47.28 ml/min; Globulin 2.7 g/dL (2.2-4.2); Glucose 101 mg/dL (74-106); Magnesium 2.2 mg/dL (1.6-2.6); Potassium 3.5 mmol/L (3.5-5.1); Protein, Total 5.9 g/dL (6.4-8.2); Sodium Level 140 mmol/L (136-145)
[2023-05-28] MEDS: hydrALAZINE 20 MG/ML Vial 10 MG IV ×2 (04:19→22:35)
[2023-05-28] MEDS: Acetaminophen 325 MG Tablet 650 MG PO (04:43)
[2023-05-28] MEDS: Levothyroxine 100 MCG Tablet PO (04:44)
--- NOTE | 2023-05-28 08:07 | PN.HOSP_ITS ---
Reason for Visit Reason for Visit: Diagnoses Hyperlipidemia, unspecified (05/27/23) Hypertensive urgency (05/27/23) Non-ST elevation (NSTEMI) myocardial infarction (05/27/23) Acute on chronic diastolic (congestive) heart failure (05/27/23) Diaphragmatic hernia without obstruction or gangrene (05/27/23) Other specified abnormal findings of blood chemistry (05/27/23) Presence of coronary angioplasty implant and graft (05/27/23) Subjective Subjective Patient is a 77-year-old gentleman admitted with chest pain elevated blood pressure and markedly elevated troponin and assessment of acute non-STEMI made admitted to a monitored bed where patient is currently being managed Objective Data Objective Data Vital Signs: Vital Signs Temp Pulse Resp BP Pulse Ox O2 Del Method 97.4 F L 79 16 157/63 H 96 Room Air 05/28/23 06:10 05/28/23 06:10 05/28/23 06:10 05/28/23 06:10 05/28/23 06:10 05/28/23 06:10 Oxygen Delivery Method Room Air Weight: 94 kg Body Mass Index (BMI) 31.5 Intake & Output: Intake and Output for Last 24 Hours 05/26/23 05/27/23 05/28/23 23:59 23:59 23:59 Intake Total 315.5 / 315.5 65.4 / 65.4 Balance 315.5 / 315.5 65.4 / 65.4 Lab / Micro Data 05/28/23 02:27 05/28/23 02:27 Labs: Laboratory Results - last 24 hr 05/27/23 10:15: WBC 7.4, RBC 4.68, Hgb 15.0, Hct 46.0, MCV 98.3 H, MCH 32.1 H, MCHC 32.6, RDW Std Deviation 47.8 H, RDW Coeff of [place] 13.3, Plt Count , MPV 11.3, Immature Gran % (Auto) 0.400, Neut % (Auto) 72.9 H, Lymph % (Auto) 17.3 L, [place] % (Auto) 7.3, Eos % (Auto) 1.6, Baso % (Auto) 0.5, Absolute Neuts (auto) 5.4, Absolute Lymphs (auto) 1.28, Nucleated RBC % 0, Platelet Estimate ADEQUATE, PT 12.4, INR 0.9, APTT 22.8 L, Sodium 140, Potassium 3.6, Chloride 112 H, Carbon Dioxide 22.0, Anion Gap 6, BUN 16, Creatinine 1.59 H, Estim Creat Clear Calc 41 .77, Est GFR (MDRD) Af Amer 54 L, Est GFR (MDRD) Non-Af 45 L, BUN/Creatinine Ratio 10.1, Glucose 104, Calcium 9.2, Troponin I High Sens 1199 H* 05/27/23 12:58: Troponin I High Sens 2460 H* 05/27/23 15:05: Troponin I High Sens 2771 H* 05/27/23 18:22: APTT 86.1 H 05/28/23 02:27: WBC 8.4, RBC 4.10 L, Hgb 13.4, Hct 39.9 L, MCV 97.3 H, MCH 32.7 H, MCHC 33.6, RDW Std Deviation 48.1 H, RDW Coeff of [place] 13.4, Plt Count 162, MPV 10.6, Immature Gran % (Auto) 0.400, Neut % (Auto) 69.1, Lymph % (Auto) 18.9 L, [place] % (Auto) 9.3, Eos % (Auto) 1.6, Baso % (Auto) 0.7, Absolute Neuts (auto) 5.8, Absolute Lymphs (auto) 1.58, Nucleated RBC % 0, APTT 71.3 H, Sodium 140, Potassium 3.5, Chloride 112 H, Carbon Dioxide 22.0, Anion Gap 6, BUN 16, Creatinine 1.41 H, Estim Creat Clear Calc 47.28, Est GFR (MDRD) Af Amer 62, Est GFR (MDRD) Non-Af 51 L, BUN/Creatinine Ratio 11.3, Glucose 101, Calcium 8.8, Phosphorus 4.0, Magnesium 2.2, Total Bilirubin 0.80, Direct Bilirubin 0.23, AST 26, ALT 22, Alkaline Phosphatase 82, Total Protein 5.9 L, Albumin 3.2, Globulin 2.7 Radiography Diagnostic Testing: Radiology Impression Chest X-Ray 05/27/23 10:33 IMPRESSION: 1. Mild enlargement of the cardiac silhouette. 2. Retrocardiac density could reflect hiatal hernia. CT scan the chest might be of value. Electronically Signed: Ulysses Rivas MD at 10:53 EST , Chest/Abdomen/Pelvis CTA 05/27/23 11:08 IMPRESSION: 1. No evidence of aortic aneurysm or dissection. 2. No pulmonary mass, adenopathy or focal acute pulmonary infiltrates. 3. Moderate to large hiatal hernia appears to be paraesophageal. 4. Diverticulosis without evidence of acute diverticulitis. 5. Umbilical hernia containing small bowel loop without evidence of obstruction. Electronically Signed: Ulysses Rivas MD at 11:45 EST , Rhythm Strip Rhythm Strip: Sinus Rhythm Rate: 60 Physical Exam Narrative GENERAL: cooperative HEENT: Atraumatic; normocephalic EYES; Anicteric, Normal Conjunctiva NECK; supple, normal thyroid, RESPIRATORY: Diminished to auscultation CARDIOVASCULAR: Regular S1 S2, GI: soft, normoactive bowel sounds, : No Renal angle tenderness; EXTREMITIES: No edema, no clubbing, MUSCULOSKELETAL: no muscle wasting NEURO: Awake; no lateralizing signs. SKIN: No Rash PSYCH; Flat affect Assessment & Plan Assessment/Plan (1) NSTEMI, initial episode of care: PLAN: Plan Patient is a 77-year-old gentleman admitted with chest pain was found to have elevated troponin consistent with acute non-STEMI admitted to monitored bed for further management 1. Acute non-STEMI -Patient with previous coronary artery disease. Admitted to monitored bed treatment initiated per protocol with systemic anticoagulation with heparin beta-bharathi statin therapy. As part of his management subsequent serial cardiac enzymes and 2D echo ordered. Consult was placed to Dr. Kwong with cardiology from the ED. Definitive management including decision for left heart catheterization and intervention if warranted deferred to cardiology ? 05/28/2023; 2D echo obtained on admission results are as below Normal LV size. Left ventricular systolic function is normal. The estimated ejection fraction is 60 %. Mild (1+) aortic valve insufficiency. Pulmonary artery systolic pressure is 28 mmHg. Mild focal aortic valve thickening. -Was seen in consultation by Dr. Kwong with cardiology notes and recommendations reviewed 2. Coronary artery disease ? With previous PCI with SAMANTHA to an RCA lesion in 2011. Patient is on guideline directed medical therapy 3. Essential hypertension ? Patient blood pressure control not optimal plan is to continue with home meds and adjust doses if needed ? 05/28/2023 overall blood pressure control improving however still not optimal subsequent adjustment made to patient antihypertensives 4. Rheumatoid arthritis ? Symptoms controlled on hydroxychloroquine did continue home dose 5. GERD ? On PPI 6. Class I obesity with BMI of 31 ? Complicating care weight loss advised 7. Hypothyroidism - Patient is on levothyroxine home dose continued 8. Restless leg syndrome ? Patient is on pramipexole did continue with home dose 9. Mild intermittent asthma ? Currently not in exacerbation did continue patient aerosol treatment 10. Chronic congestive heart failure with preserved ejection fraction ? Patient echo from 12/03/2020 demonstrated EF of 60%. Patient is on diuretic therapy currently remains euvolemic 11. BPH with lower urinary obstructive symptoms - Patient treated with tamsulosin 12. Dyslipidemia -Patient is on statin therapy, continued at home dose 13. DVT prophylaxis ? Started on systemic anticoagulation on admission continue Time spent in the patient's overall evaluation,decision-making process, review of diagnostic data, adjustment of management, discussion with other providers, nursing nursing and ancillary staff involved in patient's care documentation, 54 minutes Charges/Coding Visit Charges Inpatient E&M: 15875 [facility] L3
[2023-05-28] MEDS: Ferrous Sulfate 325 MG Tablet PO (09:17)
[2023-05-28] MEDS: Pantoprazole Sodium 20 MG Tablet PO (09:18)
[2023-05-28] MEDS: Finasteride 5 MG Tablet PO (09:18)
[2023-05-28] MEDS: Empagliflozin 10 MG Tablet PO (09:18)
[2023-05-28] MEDS: Hydroxychloroquine 200 MG Tablet PO (09:19)
[2023-05-28] MEDS: Aspirin E.C. 81 MG Tablet PO (09:19)
[2023-05-28] MEDS: Metoprolol(XL)Succ 25 MG Tablet PO (09:19)
[2023-05-28] MEDS: Tamsulosin HCl 0.4 MG Capsule PO (09:19)
[2023-05-28 10:20] LABS: Partial Thromboplast Time 59.7 Seconds (24.1-36.2)
[2023-05-28 11:22] LABS: Troponin-I HS 2503 pg/mL (3.0-78.0)
--- NOTE | 2023-05-28 12:26 | PN.CARD_ITS ---
Subjective Subjective The patient denies any recurrence of his chest symptoms. His telemetry has shown some frequent PVCs and 1 4 beat run of VT. His blood pressure has been better controlled in the 1 65-1 80 range systolic and 65-80 diastolic. He has been at bedrest since admission. His creatinine actually dropped from 1.59-1.41 after dye exposure with a CTA yesterday. His echocardiogram is pending at this time. Troponins were 1199, 2771, and 2503. EKG shows normal sinus rhythm with a left anterior fascicular block and no significant ischemic changes there are some nonspecific ST changes. Objective Data Vital Signs: Vital Signs Temp Pulse Resp BP Pulse Ox O2 Del Method 98.2 F 82 18 157/81 H 100 Room Air 05/28/23 09:10 05/28/23 09:19 05/28/23 09:10 05/28/23 09:19 05/28/23 09:10 05/28/23 09:10 Oxygen Delivery Method Room Air Weight: 207 lb 3.752 oz Body Mass Index (BMI) 31.5 Intake & Output: Intake and Output for Last 24 Hours 05/26/23 05/27/23 05/28/23 23:59 23:59 23:59 Intake Total 315.5 / 315.5 480.6 / 480.6 Balance 315.5 / 315.5 480.6 / 480.6 Lab / Micro Data Attestation: I reviewed the patient's lab results. 05/28/23 02:27 05/28/23 02:27 Labs: Laboratory Results - last 24 hr 05/27/23 12:58: Troponin I High Sens 2460 H* 05/27/23 15:05: Troponin I High Sens 2771 H* 05/27/23 18:22: APTT 86.1 H 05/28/23 02:27: WBC 8.4, RBC 4.10 L, Hgb 13.4, Hct 39.9 L, MCV 97.3 H, MCH 32.7 H, MCHC 33.6, RDW Std Deviation 48.1 H, RDW Coeff of Cornell 13.4, Plt Count 162, MPV 10.6, Immature Gran % (Auto) 0.400, Neut % (Auto) 69.1, Lymph % (Auto) 18.9 L, [place] % (Auto) 9.3, Eos % (Auto) 1.6, Baso % (Auto) 0.7, Absolute Neuts (auto) 5.8, Absolute Lymphs (auto) 1.58, Nucleated RBC % 0, APTT 71.3 H, Sodium 140, Potassium 3.5, Chloride 112 H, Carbon Dioxide 22.0, Anion Gap 6, BUN 16, Creatinine 1.41 H, Estim Creat Clear Calc 47.28, Est GFR (MDRD) Af Amer 62, Est GFR (MDRD) Non-Af 51 L, BUN/Creatinine Ratio 11.3, Glucose 101, Calcium 8.8, Phosphorus 4.0, Magnesium 2.2, Total Bilirubin 0.80, Direct Bilirubin 0.23, AST 26, ALT 22, Alkaline Phosphatase 82, Total Protein 5.9 L, Albumin 3.2, Globulin 2.7 05/28/23 09:20: APTT 59.7 H 05/28/23 10:38: Troponin I High Sens 2503 H* Rhythm Strip Rhythm Strip: Sinus Rhythm Rate: 90 Ectopy: PVC(s) Cardiology Labs/Tests 05/27/23 18:22: APTT 86.1 H 05/28/23 02:27: WBC 8.4, RBC 4.10 L, Hgb 13.4, Hct 39.9 L, MCV 97.3 H, MCH 32.7 H, MCHC 33.6, Plt Count 162, MPV 10.6, Immature Gran % (Auto) 0.400, Neut % (Auto) 69.1, Lymph % (Auto) 18.9 L, [place] % (Auto) 9.3, Eos % (Auto) 1.6, Baso % (Auto) 0.7, Absolute Neuts (auto) 5.8, Nucleated RBC % 0, APTT 71.3 H, Sodium 140, Potassium 3.5, Chloride 112 H, Carbon Dioxide 22.0, Anion Gap 6, BUN 16, Creatinine 1.41 H, Est GFR (MDRD) Af Amer 62, Est GFR (MDRD) Non-Af 51 L, BUN/Creatinine Ratio 11.3, Glucose 101, Calcium 8.8, Phosphorus 4.0, Magnesium 2.2, Total Bilirubin 0.80, Direct Bilirubin 0.23 05/28/23 09:20: APTT 59.7 H Rhythm: EKG: ECHO: Stress Test: Cardiac Cath: PCI: CT Surgery: Holter monitor: EPS: PPM: CXR: Chest CT Scan: EKG Follow-up EKG: Attestation: I personally reviewed and interpreted this EKG as follows: Interpretation: Normal sinus rhythm left anterior fascicular block nonspecific T wave changes. Physical Exam Const oriented x3 HEENT normocephalic Eyes EOMs intact bilaterally Neck supple and no JVD Chest inspection of chest normal Resp normal respiratory effort and clear to auscultation bilaterally Cardio regular rate, regular rhythm, S1 normal heart sound, S2 normal heart sound, no murmurs, no rub and no gallops GI soft to palpation Extremity no pedal edema Skin no rashes or lesions noted Neuro Neuro Narrative: Alert and oriented x 3 Psych mental status grossly normal Assessment & Plan Assessment/Plan (1) NSTEMI, initial episode of care: PLAN: The patient's high-sensitivity troponins peaked at 2771. His EKG does not show any definitive ischemic changes. His blood pressure is coming under better control. He denies any shortness of breath or chest tightness. His primary presenting complaint was progressive dyspnea on exertion. He does have a history of heart failure with preserved ejection fraction. Given the patient's enzymes and his known coronary disease status post right coronary artery stenting I recommend the patient undergo left heart catheterizat ion in the next 48 hours. We are monitoring his creatinine given his history of renal insufficiency and dye exposure with a CTA that he had yesterday. (2) Hypertensive urgency: PLAN: The patient's blood pressure has come down nicely is in the 180 systolic range most of the time. It had been well over 200 on presentation. Will adjust his medications to add angiotensin receptor bharathi to his meds. He is tolerating the Coreg 25 mg twice daily. (3) Heart failure: QUALIFIERS: Heart failure type: diastolic Heart failure chronicity: acute on chronic Qualified Code(s): I50.33 - Acute on chronic diastolic (congestive) heart failure PLAN: The patient has a history of chronic heart failure with preserved ejection fraction. He is on empagliflozin, metoprolol tartrate, and spironolactone. (4) Presence of stent in coronary artery: PLAN: He has a stent in the proximal right coronary artery that was placed several years ago. Given his presentation and his enzymes begin in the 2700 range with nonspecific T wave changes I recommend he undergo invasive evaluation in the next 48 hours. PLAN: Plan 1, Will switch the patient from metoprolol to Coreg for better blood pressure control. 2. Will add low-dose losartan 50 mg daily. 3. Will monitor his renal status and potassium. 4. Will plan on left heart catheterization on 05/30/2023. Charges/Coding Visit Charges Inpatient E&M: 91609 Subs Hosp L2
[2023-05-28] MEDS: Albuterol 2.5 MG/3 ML VIAL.NEB. INHALATION ×2 (14:14→19:22)
--- NOTE | 2023-05-28 14:50 | CASEMGMT ---
MARK ALVARADO Assessment: Face to Face with pt for initial transition planning/care coordination assessment. RN CHRISTIANO introduced self and role at [facility], pt voices understanding and consents to assessment. Pt is A&O x4, sitting up in bed, and answers all questions appropriately at this time. Care providers, pharmacy, and demographics verified/updated. Admitting Dx: NSTEMI PCP: Dr. Wright Specialists: Dr. Kwong with cardio, Dr. Elder grant, Dr. Phillips at the eye center, Dr. Martin with nephrology, Dr. Santos for pain, Dr. Rg with urology, Dr. Gill with ENT, Dr. Canada for arthiritis Preferred Pharmacy: [email or web address] Insurance: [employer] [facility] Prescription Benefit: yes LNOK: Damon Logan- [phone] Living Arrangements: Pt lives at home alone. Pt lives in a single story home with a basement walkout. Pt reports he does not go downstairs and has a ramp to enter the home. Pt does the best he can with bathing, dressing, and household tasks when his aides are not there, reports sometimes it takes him all day to get through the day. Aides are through [employer] and are 4 hours per day 3 days a week. Pt reports he is in his elimination period with his LTC insurance so is privately paying for the aides. Once out of his elimination period he plans to increase the hours. He reports that he has a 90 day period and is about jail through. Pt reports that his son does his grocery shopping and usually does salads, soups, and sandwhiches. Transportation: Pt drives self and denies concerns with transportation but he does not go far. DME:Walker primarily, cane, CPAP, nebulizer, shower chair, grab bars HHC/SNF: None Pt states no concerns with going home at time of dc. Pt states no further concerns/needs. CM to follow. Advised pt to ask CM if any further question/concerns/needs arise, voices understanding. Pt Goal: Home Plan: Home Tasha MEREDITH, RN, CCM
[2023-05-28] MEDS: HEPARIN/D5w 25,000 UNITS 25,000 UNITS/250 ML IV.SOLN. 9 UNITS CONT INF (16:46)
[2023-05-28] MEDS: Carvedilol 25 MG Tablet PO (16:48)
[2023-05-28] MEDS: Budesonide Respules 0.5 MG/2 ML AMPUL.NEB. INHALATION (19:22)
[2023-05-28] MEDS: Atorvastatin Calcium 40 MG Tablet PO (22:22)
[2023-05-28] MEDS: Latanoprost 0.005% 1 Bottle 1 DRP EACH EYE (22:22)
[2023-05-28] MEDS: Pramipexole Di-HCl 1 MG Tablet 3 MG PO (22:22)
[2023-05-28] MEDS: Gabapentin 100 MG Capsule PO (22:35)
[2023-05-28] MEDS: 0.9% Saline Lock 10 ML Syringe IV (22:35)
[2023-05-28 22:59] LABS: Partial Thromboplast Time 55.3 Seconds (24.1-36.2)
[2023-05-29] MEDS: Levothyroxine 100 MCG Tablet PO (04:11)
[2023-05-29 04:30] VITALS: BP 156/87; PULSE 77; RESP 18; TEMP 36.5; O2SAT 97
[2023-05-29 05:09] LABS: Absolute Lymphocyte Count 1.85 X10^3/uL (0.83-4.51); Basophil# 0.05 X10^3/uL; Basophil% 0.6 % (0-1); Eosinophil# 0.13 X10^3/uL; Eosinophils% 1.5 % (0-5); Hematocrit 42.2 % (40-54); Lymphocyte # 1.85 X10^3/ul (0.83-4.51); Lymphocyte % 21.2 % (19-41); Mean Corp Hgb Conc 33.2 g/dL (32-36); Mean Corpuscular Hgb 32.3 pg (27.0-32.0); Mean Corpuscular Volume 97.2 fL (80-94); Mean Platelet Vol. 10.2 fl (6.2-12.0); Monocyte# 0.68 X10^3/uL; Monocyte% 7.8 % (0-10); NRBC Flagged by Analyzer 0 % (0-5); Neutrophil # 5.99 X10^3/uL (2.7-7.7); Neutrophil % 68.6 % (47-70); Platelet Count 167 K/mm3 (150-450); RBC Distribution Width CV 13.6 % (11.6-14.6); RBC Distribution Width SD 48.9 fl (35.1-43.9); Red Blood Count 4.34 M/mm3 (4.6-6.2); White Blood Count 8.7 K/mm3 (4.4-11.0)
[2023-05-29 05:18] LABS: Partial Thromboplast Time 61.8 Seconds (24.1-36.2)
[2023-05-29 05:26] LABS: Anion Gap 6 (5-15); BUN 22 mg/dL (7-18); BUN/Creat Ratio 14.8 RATIO (10-20); Chloride 111 mmol/L (98-107); Creatinine, Serum 1.49 mg/dL (0.70-1.30); EST Glomerular Filtration Rate 48 mL/min (>60); Est Glom Filt Rate - Afr Amer 58 mL/min (>60); Estimated Creatinine Clearance 44.72 ml/min; Glucose 114 mg/dL (74-106); Potassium 3.7 mmol/L (3.5-5.1); Sodium Level 138 mmol/L (136-145)
[2023-05-29 06:00] VITALS: BMI 31.6
[2023-05-29 07:41] VITALS: PULSE 74; RESP 20; O2SAT 95
[2023-05-29] MEDS: Budesonide Respules 0.5 MG/2 ML AMPUL.NEB. INHALATION ×2 (07:41→20:40)
[2023-05-29] MEDS: Albuterol 2.5 MG/3 ML VIAL.NEB. INHALATION ×2 (07:41→20:40)
[2023-05-29 09:45] VITALS: BP 149/70; PULSE 82; RESP 18; TEMP 36.5; O2SAT 99
--- NOTE | 2023-05-29 09:47 | PN.HOSP_ITS ---
Reason for Visit Reason for Visit: Diagnoses Hyperlipidemia, unspecified (05/27/23) Hypertensive urgency (05/27/23) Non-ST elevation (NSTEMI) myocardial infarction (05/27/23) Acute on chronic diastolic (congestive) heart failure (05/27/23) Diaphragmatic hernia without obstruction or gangrene (05/27/23) Other specified abnormal findings of blood chemistry (05/27/23) Presence of coronary angioplasty implant and graft (05/27/23) Subjective Subjective Patient seen complains of having had a restless night. Seen in consultation by cardiology plans for patient to undergo left heart catheterization on 05/30/2023 with intervention if warranted Objective Data Objective Data Vital Signs: Vital Signs Temp Pulse Resp BP Pulse Ox O2 Del Method 97.7 F L 74 20 H 156/87 H 95 Room Air 05/29/23 04:30 05/29/23 07:41 05/29/23 07:41 05/29/23 04:30 05/29/23 07:41 05/29/23 09:42 Oxygen Delivery Method Room Air Weight: 94.5 kg Body Mass Index (BMI) 31.6 Intake & Output: Intake and Output for Last 24 Hours 05/27/23 05/28/23 05/30/23 23:59 23:59 00:59 Intake Total 315.5 / 315.5 1189.0 / 1189.0 288.45 / 288.45 Output Total 300 / 300 Balance 315.5 / 315.5 1189.0 / 1189.0 -11.55 / -11.55 Lab / Micro Data 05/29/23 04:38 05/29/23 04:38 Labs: Laboratory Results - last 24 hr 05/28/23 09:20: APTT 59.7 H 05/28/23 10:38: Troponin I High Sens 2503 H* 05/28/23 16:08: APTT 49.0 H 05/28/23 22:36: APTT 55.3 H 05/29/23 04:30: APTT 61.8 H 05/29/23 04:38: WBC 8.7, RBC 4.34 L, Hgb 14.0, Hct 42.2, MCV 97.2 H, MCH 32.3 H, MCHC 33.2, RDW Std Deviation 48.9 H, RDW Coeff of Cornell 13.6, Plt Count 167, MPV 10.2, Immature Gran % (Auto) 0.300, Neut % (Auto) 68.6, Lymph % (Auto) 21.2, [place] % (Auto) 7.8, Eos % (Auto) 1.5, Baso % (Auto) 0.6, Absolute Neuts (auto) 6.0, Absolute Lymphs (auto) 1.85, Nucleated RBC % 0, Sodium 138, Potassium 3.7, Chloride 111 H, Carbon Dioxide 21.0, Anion Gap 6, BUN 22 H, Creatinine 1.49 H, Estim Creat Clear Calc 44.72, Est GFR (MDRD) Af Amer 58 L, Est GFR (MDRD) Non-Af 48 L, BUN/Creatinine Ratio 14.8, Glucose 114 H, Calcium 9.0 Radiography Diagnostic Testing: Radiology Impression Echocardiogram 05/27/23 13:46 Interpretation Summary Normal LV size. Left ventricular systolic function is normal. The estimated ejection fraction is 55 %. Infero-Basal: Hypokinetic Stage 1 diastolic dysfunction. Mildly dilated aortic root. Ordering Physician: Diego Em Referring Physician: Waqar Wright Performed By: Sky Mancia RCS Rhythm Strip Rhythm Strip: Sinus Rhythm Rate: 90 Ectopy: PVC(s) Physical Exam Narrative GENERAL: cooperative HEENT: Atraumatic; normocephalic EYES; Anicteric, Normal Conjunctiva NECK; supple, normal thyroid, RESPIRATORY: Diminished to auscultation CARDIOVASCULAR: Regular S1 S2, GI: soft, normoactive bowel sounds, : No Renal angle tenderness; EXTREMITIES: No edema, no clubbing, MUSCULOSKELETAL: no muscle wasting NEURO: Awake; no lateralizing signs. SKIN: No Rash PSYCH; Flat affect Assessment & Plan Assessment/Plan (1) NSTEMI, initial episode of care: PLAN: Plan Patient is a 77-year-old gentleman admitted with chest pain was found to have elevated troponin consistent with acute non-STEMI admitted to monitored bed for further management 1. Acute non-STEMI -Patient with previous coronary artery disease. Admitted to monitored bed treatment initiated per protocol with systemic anticoagulation with heparin beta-bharathi statin therapy. As part of his management subsequent serial cardiac enzymes and 2D echo ordered. Consult was placed to Dr. Kwong with cardiology from the ED. Definitive management including decision for left heart catheterization and intervention if warranted deferred to cardiology ? 05/28/2023; 2D echo obtained on admission results are as below Normal LV size. Left ventricular systolic function is normal. The estimated ejection fraction is 60 %. Mild (1+) aortic valve insufficiency. Pulmonary artery systolic pressure is 28 mmHg. Mild focal aortic valve thickening. -Was seen in consultation by Dr. Kwong with cardiology notes and recommendations reviewed ? 05/29/2023 plan is for patient to undergo left heart catheterization on 05/30/2023 2. Coronary artery disease ? With previous PCI with SAMANTHA to an RCA lesion in 2011. Patient is on guideline directed medical therapy 3. Essential hypertension ? Patient blood pressure control not optimal plan is to continue with home meds and adjust doses if needed ? 05/28/2023 overall blood pressure control improving however still not optimal subsequent adjustment made to patient antihypertensives 4. Rheumatoid arthritis ? Symptoms controlled on hydroxychloroquine did continue home dose 5. Moderate to large hiatal hernia appears to be paraesophageal with GERD ? On PPI 6. Class I obesity with BMI of 31 ? Complicating care weight loss advised 7. Hypothyroidism - Patient is on levothyroxine home dose continued 8. Restless leg syndrome ? Patient is on pramipexole did continue with home dose 9. Mild intermittent asthma ? Currently not in exacerbation did continue patient aerosol treatment 10. Chronic congestive heart failure with preserved ejection fraction ? Patient echo from 12/03/2020 demonstrated EF of 60%. Patient is on diuretic therapy currently remains euvolemic 11. BPH with lower urinary obstructive symptoms - Patient treated with tamsulosin 12. Dyslipidemia -Patient is on statin therapy, continued at home dose 13. DVT prophylaxis ? Started on systemic anticoagulation on admission continue Time spent in the patient's overall evaluation,decision-making process, review of diagnostic data, adjustment of management, discussion with other providers, nursing nursing and ancillary staff involved in patient's care documentation, 38 minutes Charges/Coding Visit Charges Inpatient E&M: 35030 Subs Hosp L2
[2023-05-29] MEDS: Finasteride 5 MG Tablet PO (09:51)
[2023-05-29] MEDS: Carvedilol 25 MG Tablet PO ×2 (09:52→17:27)
[2023-05-29] MEDS: Aspirin E.C. 81 MG Tablet PO (09:52)
[2023-05-29] MEDS: Ferrous Sulfate 325 MG Tablet PO (09:52)
[2023-05-29] MEDS: Empagliflozin 10 MG Tablet PO (09:53)
[2023-05-29] MEDS: Hydroxychloroquine 200 MG Tablet PO (09:53)
[2023-05-29] MEDS: Pantoprazole Sodium 20 MG Tablet PO (09:53)
[2023-05-29] MEDS: Tamsulosin HCl 0.4 MG Capsule PO (09:53)
[2023-05-29] MEDS: Losartan Potassium 50 MG Tablet PO (09:53)
--- NOTE | 2023-05-29 09:53 | PN.CARD_ITS ---
Subjective Subjective The patient was asleep in the chair but easily arousable. He had eaten his complete breakfast. He denies any recurrence of chest tightness. His blood pressure is coming under better control but he is only received a few doses of the new medical regimen. The echocardiogram done showed a left trickle ejection fraction of 55% with inferior basilar hypokinesis. It was mild bilateral atrial enlargement 1+ aortic insufficiency was documented. No other significant valvular disease was noted. Estimated GFR is 48 down from 51 on admission creatinine was 1.41 on admission is 1.49 today. Objective Data Vital Signs: Vital Signs Temp Pulse Resp BP Pulse Ox O2 Del Method 97.7 F L 82 18 149/70 H 99 Room Air 05/29/23 09:45 05/29/23 09:45 05/29/23 09:45 05/29/23 09:45 05/29/23 09:45 05/29/23 09:45 Oxygen Delivery Method Room Air Weight: 208 lb 5.389 oz Body Mass Index (BMI) 31.6 Intake & Output: Intake and Output for Last 24 Hours 05/27/23 05/28/23 05/30/23 23:59 23:59 00:59 Intake Total 315.5 / 315.5 1189.0 / 1189.0 288.45 / 288.45 Output Total 300 / 300 Balance 315.5 / 315.5 1189.0 / 1189.0 -11.55 / -11.55 Lab / Micro Data 05/29/23 04:38 05/29/23 04:38 Labs: Laboratory Results - last 24 hr 05/28/23 09:20: APTT 59.7 H 05/28/23 10:38: Troponin I High Sens 2503 H* 05/28/23 16:08: APTT 49.0 H 05/28/23 22:36: APTT 55.3 H 05/29/23 04:30: APTT 61.8 H 05/29/23 04:38: WBC 8.7, RBC 4.34 L, Hgb 14.0, Hct 42.2, MCV 97.2 H, MCH 32.3 H, MCHC 33.2, RDW Std Deviation 48.9 H, RDW Coeff of [place] 13.6, Plt Count 167, MPV 10.2, Immature Gran % (Auto) 0.300, Neut % (Auto) 68.6, Lymph % (Auto) 21.2, [place] % (Auto) 7.8, Eos % (Auto) 1.5, Baso % (Auto) 0.6, Absolute Neuts (auto) 6.0, Absolute Lymphs (auto) 1.85, Nucleated RBC % 0, Sodium 138, Potassium 3.7, Chloride 111 H, Carbon Dioxide 21.0, Anion Gap 6, BUN 22 H, Creatinine 1.49 H, Estim Creat Clear Calc 44.72, Est GFR (MDRD) Af Amer 58 L, Est GFR (MDRD) Non-Af 48 L, BUN/Creatinine Ratio 14.8, Glucose 114 H, Calcium 9.0 Rhythm Strip Rhythm Strip: Sinus Rhythm Rate: 85 Ectopy: - (The patient had 1 run of 12 beat supraventricular tachycardia to 140 bpm. Otherwise no significant ectopy.) Cardiology Labs/Tests 05/28/23 09:20: APTT 59.7 H 05/28/23 16:08: APTT 49.0 H 05/28/23 22:36: APTT 55.3 H 05/29/23 04:30: APTT 61.8 H 05/29/23 04:38: WBC 8.7, RBC 4.34 L, Hgb 14.0, Hct 42.2, MCV 97.2 H, MCH 32.3 H, MCHC 33.2, Plt Count 167, MPV 10.2, Immature Gran % (Auto) 0.300, Neut % (Auto) 68.6, Lymph % (Auto) 21.2, [place] % (Auto) 7.8, Eos % (Auto) 1.5, Baso % (Auto) 0.6, Absolute Neuts (auto) 6.0, Nucleated RBC % 0, Sodium 138, Potassium 3.7, Chloride 111 H, Carbon Dioxide 21.0, Anion Gap 6, BUN 22 H, Creatinine 1.49 H, Est GFR (MDRD) Af Amer 58 L, Est GFR (MDRD) Non-Af 48 L, BUN/Creatinine Ratio 14.8, Glucose 114 H, Calcium 9.0 Rhythm: EKG: ECHO: Stress Test: Cardiac Cath: PCI: CT Surgery: Holter monitor: EPS: PPM: CXR: Chest CT Scan: Radiography Diagnostic Testing: Radiology Impression Echocardiogram 05/27/23 13:46 Interpretation Summary Normal LV size. Left ventricular systolic function is normal. The estimated ejection fraction is 55 %. Infero-Basal: Hypokinetic Stage 1 diastolic dysfunction. Mildly dilated aortic root. Ordering Physician: Diego Em Referring Physician: Waqar Wright Performed By: Sky Mancia RCS Physical Exam Const oriented x3 HEENT normocephalic Eyes EOMs intact bilaterally Neck no JVD Chest inspection of chest normal Resp normal respiratory effort and clear to auscultation bilaterally Resp Narrative: It was noted gurgling sounds both in the right posterior and midline anterior auscultation of the chest. Cardio regular rate, regular rhythm, S1 normal heart sound, S2 normal heart sound, no murmurs, no rub and no gallops Extremity no pedal edema Skin no rashes or lesions noted Neuro Neuro Narrative: Alert and oriented x 3 Psych mental status grossly normal Assessment & Plan Assessment/Plan (1) NSTEMI, initial episode of care: PLAN: The patient has been asymptomatic from a chest symptom standpoint since admission and control of his blood pressure. However his echo does show inferior basilar hypokinesis with an ejection fraction of 55%. I feel the patient should undergo invasive evaluation with a left heart catheterization to redefine his coronary anatomy. (2) Hypertensive urgency: PLAN: 's blood pressure is coming under better control slowly he has not r eceived steady-state dosing on his Coreg or losartan. Will continue to monitor his blood pressure response. (3) Presence of stent in coronary artery: PLAN: Patient has a history of a right coronary artery stent in 2011. PLAN: Plan 1. Plan for left heart catheterization tomorrow. 2. Will monitor renal status. 3. Will continue to address blood pressure management. Charges/Coding Visit Charges Inpatient E&M: 35777 Subs Hosp L2
[2023-05-29 15:40] VITALS: BP 118/82; PULSE 70; RESP 18; TEMP 36.7; O2SAT 98
[2023-05-29 20:40] VITALS: PULSE 74; RESP 16
[2023-05-29 22:10] VITALS: BP 142/85; PULSE 72; RESP 18; TEMP 36.6; O2SAT 98
[2023-05-29] MEDS: Pramipexole Di-HCl 1 MG Tablet 3 MG PO (22:12)
[2023-05-29] MEDS: Latanoprost 0.005% 1 Bottle 1 DRP EACH EYE (22:12)
[2023-05-29] MEDS: Gabapentin 100 MG Capsule PO (22:12)
[2023-05-29] MEDS: Atorvastatin Calcium 40 MG Tablet PO (22:12)
[2023-05-29] MEDS: HEPARIN/D5w 25,000 UNITS 25,000 UNITS/250 ML IV.SOLN. 9 UNITS CONT INF (22:16)
[2023-05-30] VITALS (11 sets, daily range): BP systolic 111–152; BP diastolic 66–86; PULSE 62–78; RESP 16–18; TEMP 36.3–36.4; O2SAT 96–100; BMI 31.6
[2023-05-30 04:23] LABS: Absolute Lymphocyte Count 1.67 X10^3/uL (0.83-4.51); Absolute Neutrophil Count 6.6 X10^3/uL (2.0-7.7); Basophil# 0.05 X10^3/uL; Basophil% 0.5 % (0-1); Eosinophils% 2.1 % (0-5); Hematocrit 42.2 % (40-54); Hemoglobin 13.8 g/dL (13.0-16.5); Lymphocyte # 1.67 X10^3/ul (0.83-4.51); Lymphocyte % 17.9 % (19-41); Mean Corp Hgb Conc 32.7 g/dL (32-36); Mean Corpuscular Hgb 32.2 pg (27.0-32.0); Mean Corpuscular Volume 98.4 fL (80-94); Mean Platelet Vol. 10.1 fl (6.2-12.0); Monocyte# 0.79 X10^3/uL; Monocyte% 8.5 % (0-10); NRBC Flagged by Analyzer 0 % (0-5); Neutrophil # 6.59 X10^3/uL (2.7-7.7); Neutrophil % 70.6 % (47-70); Platelet Count 159 K/mm3 (150-450); RBC Distribution Width CV 13.8 % (11.6-14.6); RBC Distribution Width SD 49.2 fl (35.1-43.9); Red Blood Count 4.29 M/mm3 (4.6-6.2); White Blood Count 9.3 K/mm3 (4.4-11.0)
[2023-05-30 04:37] LABS: Partial Thromboplast Time 54.8 Seconds (24.1-36.2)
[2023-05-30] MEDS: 0.9% Normal Saline (1000mL) 1,000 ML 15 ML IV (04:41)
[2023-05-30] MEDS: Aspirin E.C. 81 MG Tablet PO (04:42)
[2023-05-30] MEDS: Carvedilol 25 MG Tablet PO (04:42)
[2023-05-30] MEDS: Levothyroxine 100 MCG Tablet PO (04:42)
[2023-05-30] MEDS: Losartan Potassium 50 MG Tablet PO (04:42)
[2023-05-30 04:45] LABS: Anion Gap 6 (5-15); BUN 23 mg/dL (7-18); BUN/Creat Ratio 14.2 RATIO (10-20); Calcium,Total 8.8 mg/dL (8.5-10.1); Chloride 111 mmol/L (98-107); Creatinine, Serum 1.62 mg/dL (0.70-1.30); EST Glomerular Filtration Rate 44 mL/min (>60); Est Glom Filt Rate - Afr Amer 53 mL/min (>60); Estimated Creatinine Clearance 41.21 ml/min; Glucose 114 mg/dL (74-106); Potassium 3.9 mmol/L (3.5-5.1); Sodium Level 140 mmol/L (136-145)
[2023-05-30] MEDS: Budesonide Respules 0.5 MG/2 ML AMPUL.NEB. INHALATION (07:45)
[2023-05-30] MEDS: Albuterol 2.5 MG/3 ML VIAL.NEB. INHALATION (07:46)
--- NOTE | 2023-05-30 08:55 | PCM.PN.CARD ---
Subjective Subjective The patient's blood pressures come under much better control on his medical regimen. He has been pretty much at bedrest since admission. The patient's creatinine has increased slightly from 1.49-1.6 over the last 24 hours. This probably represents a hypertensive urgency/emergency he presented with in the 72 hours prior. He is scheduled for left heart catheterization and echocardiogram is been previously performed so an LV gram will be avoided. The patient denies any chest pain denies any shortness of breath or chest tightness. He had presented with this when he initially came to the emergency department. And he does have a history of a known right coronary artery stent in the past. His echo done on this admission showed inferior basal hypokinesis. This had been intermittently observed on prior echoes. His current echo showed this wall motion abnormality however the prior echo did not mention it. Objective Data Vital Signs: Vital Signs Temp Pulse Resp BP Pulse Ox O2 Del Method 97.4 F L 69 18 140/74 H 97 Room Air 05/30/23 07:53 05/30/23 07:53 05/30/23 07:53 05/30/23 07:53 05/30/23 07:53 05/30/23 08:04 Oxygen Delivery Method Room Air Weight: 208 lb 1.862 oz Body Mass Index (BMI) 31.6 Intake & Output: Intake and Output for Last 24 Hours 05/28/23 05/29/23 05/30/23 22:59 23:59 23:59 Intake Total 91.65 / 91.65 Output Total Balance 91.65 / 91.65 Lab / Micro Data 05/30/23 04:00 05/30/23 04:00 Labs: Laboratory Results - last 24 hr 05/30/23 04:00: WBC 9.3, RBC 4.29 L, Hgb 13.8, Hct 42.2, MCV 98.4 H, MCH 32.2 H, MCHC 32.7, RDW Std Deviation 49.2 H, RDW Coeff of Cornell 13.8, Plt Count 159, MPV 10.1, Immature Gran % (Auto) 0.400, Neut % (Auto) 70.6 H, Lymph % (Auto) 17.9 L, [place] % (Auto) 8.5, Eos % (Auto) 2.1, Baso % (Auto) 0.5, Absolute Neuts (auto) 6.6, Absolute Lymphs (auto) 1.67, Nucleated RBC % 0, APTT 54.8 H, Sodium 140, Potassium 3.9, Chloride 111 H, Carbon Dioxide 23.0, Anion Gap 6, BUN 23 H, Creatinine 1.62 H, Estim Creat Clear Calc 41.21, Est GFR (MDRD) Af Amer 53 L, Est GFR (MDRD) Non-Af 44 L, BUN/Creatinine Ratio 14.2, Glucose 114 H, Calcium 8.8 Rhythm Strip Rhythm Strip: Sinus Rhythm Rate: 69 Ectopy: - (The patient had 1 run of 12 beat supraventricular tachycardia to 140 bpm. Otherwise no significant ectopy.) Cardiology Labs/Tests 05/30/23 04:00: WBC 9.3, RBC 4.29 L, Hgb 13.8, Hct 42.2, MCV 98.4 H, MCH 32.2 H, MCHC 32.7, Plt Count 159, MPV 10.1, Immature Gran % (Auto) 0.400, Neut % (Auto) 70.6 H, Lymph % (Auto) 17.9 L, [place] % (Auto) 8.5, Eos % (Auto) 2.1, Baso % (Auto) 0.5, Absolute Neuts (auto) 6.6, Nucleated RBC % 0, APTT 54.8 H, Sodium 140, Potassium 3.9, Chloride 111 H, Carbon Dioxide 23.0, Anion Gap 6, BUN 23 H, Creatinine 1.62 H, Est GFR (MDRD) Af Amer 53 L, Est GFR (MDRD) Non-Af 44 L, BUN/Creatinine Ratio 14.2, Glucose 114 H, Calcium 8.8 Rhythm: EKG: ECHO: Stress Test: Cardiac Cath: PCI: CT Surgery: Holter monitor: EPS: PPM: CXR: Chest CT Scan: Physical Exam Const oriented x3 HEENT normocephalic Eyes EOMs intact bilaterally Neck supple Chest inspection of chest normal Resp normal respiratory effort and clear to auscultation bilaterally Cardio regular rate, regular rhythm, S1 normal heart sound, S2 normal heart sound, no murmurs, no rub and no gallops GI soft to palpation Extremity no pedal edema Skin no rashes or lesions noted Neuro Neuro Narrative: Alert and oriented x 3 Psych mental status grossly normal Assessment & Plan Assessment/Plan (1) NSTEMI, initial episode of care: PLAN: The patient originally presented with what appeared to be a hypertensive urgency/emergency with positive enzymes but no definitive ischemia on his EKG. He does have known coronary disease status post remote stenting of the right coronary artery and a new wall motion abnormality in the inferior basilar segment from the prior echo. However this had been noted on remote echocardiograms in the past. Given the patient's non-STEMI a left heart catheterization is felt to be indicated. The echocardiogram showed his ejection fraction of 55% with a wall motion abnormality noted above. We will minimize contrast and perform coronaries only. (2) Hypertensive urgency: PLAN: The patient's blood pressures come under much better control with his medical regiment as listed. He is currently tolerating the Coreg and losartan at his current doses with adequate blood pressure control. His metoprolol has been discontinued. (3) Renal insufficiency: PLAN: The patient's GFR is 44 his creatinine has risen slightly during his hospitalization. We will continue to monitor this closely and minimize contrast exposure. PLAN: Plan 1. Left heart catheterization and possible PCI as indicated today. 2. Will continue to monitor the renal function over the next week. After discharge is mandatory get a basic metabolic panel within 1 week. This can be followed up through the [facility] office and Dr. Kwong. Charges/Coding Visit Charges Inpatient E&M: 99781 [facility] Hosp L2
--- NOTE | 2023-05-30 09:19 | CASEMGMT ---
Insurance review for hospitals In-network with [facility] insurance if transfer is recommended is as follows:?[facility], [place], [facility], [facility], [facility], [facility] ([facility]), [facility], [facility], and . Kirsten Reaves, Discharge Planning Asst.
--- NOTE | 2023-05-30 10:03 | CL.D_ITS ---
Patient Name: IMAN ANDREA Study Date: 05/30/2023 Performing: Srinath Wayne MD Ht: 69 inches 175 cm : 1945 Wt: 208.4 lbs 94.4 kg Age: 77 Gender: male BSA: 2.1 PROCEDURE(S) PERFORMED [id number])C/COR CLINICAL PROFILE AND INDICATIONS Indications: Suspected CAD Heart Failure: None Stress/Imaging Stress/Image Study Performed: No CAD Presentations: Symptom unlikely to be ischemic. CONCLUSIONS Non obstructive coronary arteries RECOMMENDATIONS Medical therapy DESCRIPTION OF PROCEDURE The patient arrived to the procedure lab. The risks and benefits of the procedure as well as a full description of our services here and current unavailability of surgical backup were fully explained to the patient and/or their significant other prior to the catheterization. The Timeout was completed, verifying the correct patient and procedure. The patient's procedural site was prepped and draped in the usual fashion. Local anesthetic was given subcutaneously to right radial region with Lidocaine 2%. Using a modified Seldinger technique, arterial access was obtained via the right radial artery, a 6Fr sheath was inserted. Left Coronary Artery selective angiography was performed in multiple views using a 5 Fr. 4.0 [place] catheter. Right Coronary Artery selective angiography was then performed in multiple views using a 5 Fr. 4.0 [place] catheter.The arterial sheath was pulled and a TR Band was applied for hemostasis 10 ml of air CORONARY ANGIOGRAPHY DOMINANCE: Right Dominant LEFT HEART ASSESSMENT Left Ventricular Ejection Fraction: by Echo 55 % Inferior Basal Hypokinesis - Mild Normal Left Ventricular systolic function LEFT MAIN: Mild calcification, Mild luminal irregularities LEFT ANTERIOR DESCENDING ARTERY: Mild calcification, Mild luminal irregularities less than 30% CIRCUMFLEX ARTERY: Mild luminal irregularities RIGHT CORONARY ARTERY: Mild luminal irregularities less than 30% MID RCA: Previously placed stent is patent COMPLICATIONS No Complications PROCEDURE MEDICATIONS Fentanyl 50 mcg IV Versed 1 mg IV Fentanyl 25 mcg IV Oxygen: 2 L/min via nasal cannula Heparin given IA 05/30/2023 09:02:45 Verapamil 2.5mg, Ntg 100mcgs, 3000 units of Heparin given IA 05/30/2023 09:02:45 SUMMARY OF HEMODYNAMIC DATA Time AIR REST ECG 08:48:53 AO 106/62 (80) SA 09:11:19 AO 109/62 (85) 09:11:48 Signed By Srinath Wayne MD On 05/30/2023 10:02:19 Srinath Wayne MD
[2023-05-30] MEDS: Pantoprazole Sodium 20 MG Tablet PO (10:24)
[2023-05-30] MEDS: Finasteride 5 MG Tablet PO (10:24)
[2023-05-30] MEDS: Ferrous Sulfate 325 MG Tablet PO (10:25)
[2023-05-30] MEDS: Empagliflozin 10 MG Tablet PO (10:25)
[2023-05-30] MEDS: Tamsulosin HCl 0.4 MG Capsule PO (10:26)
[2023-05-30] MEDS: Hydroxychloroquine 200 MG Tablet PO (10:26)
[2023-05-30] MEDS: Acetaminophen 325 MG Tablet 650 MG PO (10:31)
--- NOTE | 2023-05-30 11:33 | PCM.DC.SUM ---
Providers Date of Admission: 05/27/23 Date of Discharge: 05/30/23 Primary Care Physician: Dr. Waqar Wright DO Consultations 05/27/23 13:46 Consult: Cardiology Routine Consulting Provider: Jone Kwong Reason for Consult: Chest Pain EMERGENT Consult: No MD Notified: Yes Date Notified: 05/27/23 Time Notified: 12:44 Method of Notification: ED Physician Initiated Reason For Visit: NSTEMI Diagnosis Discharge Diagnosis (1) NSTEMI, initial episode of care: Status: Acute Code(s): I21.4 - Non-ST elevation (NSTEMI) myocardial infarction (2) Hypertensive urgency: Status: Acute Code(s): I16.0 - Hypertensive urgency (3) Renal insufficiency: Status: Acute Code(s): N28.9 - Disorder of kidney and ureter, unspecified Medications at Discharge Home Medications atorvastatin 40 mg tablet 40 mg PO QHS 12/18/12 omeprazole 20 mg capsule,delayed release 20 mg PO DAILY 12/18/12 albuterol sulfate 90 mcg/actuation aerosol inhaler (ProAir HFA) 2 puff inhalation Q6H PRN Sob &/Or Wheezing 07/07/17 nitroglycerin 0.4 mg sublingual tablet 0.4 mg sublingual Q5M PRN Chest Pain #90 tabs 07/13/17 levothyroxine 100 mcg tablet 100 mcg PO DAILY 05/30/18 tamsulosin 0.4 mg capsule 0.4 mg PO Q24H 05/30/18 aspirin 81 mg tablet,delayed release (Adult Low Dose Aspirin) 81 mg PO DAILY 05/25/19 fluticasone furoate 100 mcg-vilanterol 25 mcg/dose inhalation powder (Breo Ellipta) 1 inh inhalation DAILY 05/05/20 hydroxychloroquine 200 mg tablet 200 mg PO DAILY 11/05/21 cyanocobalamin (vitamin B-12) 1,000 mcg/mL injection kit 100 mcg IM QMONTH 05/13/22 ferrous sulfate 325 mg (65 mg iron) tablet 325 mg PO DAILY 05/13/22 finasteride 5 mg tablet 5 mg PO DAILY 05/13/22 latanoprost 0.005 % eye drops 1 drp ophthalmic (eye) QPM 05/13/22 empagliflozin 10 mg tablet (Jardiance) 10 mg PO DAILY #30 tabs 05/05/23 gabapentin 100 mg capsule 100 mg PO QHS 05/05/23 pramipexole 1 mg tablet 3 mg PO QHS RLS 05/05/23 spironolactone 25 mg tablet 25 mg PO DAILY #30 tabs 05/05/23 fluticasone furoate 200 mcg/actuation blister powder for inhalation (Arnuity Ellipta) 1 inh inhalation Q24H 05/27/23 carvedilol 25 mg tablet 25 mg PO BIDCM #60 tabs 05/30/23 losartan 50 mg tablet 50 mg PO DAILY #30 tabs 05/30/23 Hospital Course Operations None Procedures 2-D Echocardiogram and Cardiac catheterization Summary of Care Provided Minutes Spent on Discharge: 45 Hospital Course: Patient is a 77-year-old male with a past medical history as outlined was done today through the ED on 05/27/2023 with a complaint of chest pain. Patient had a history of CAD and had previous stents placed in 2011. His current symptoms started the day before admission and described it as a cramping pain across his entire chest. Pain recurred when he woke up from bed. He came into the ED because his symptoms were persistent. In the ED troponins were elevated. He was admitted and managed for non-STEMI. Cardiology was consulted. Troponins were cycled. He had cardiac cath on 05/30/2023 which showed nonobstructive coronary arteries. His metoprolol was switched to carvedilol and was also started on losartan. His blood pressure had been elevated when he came in it was thought that his symptoms might have been due to the poorly controlled blood pressure. 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 Of note, 2D echo done during admission showed EF of 55% with stage I diastolic dysfunction and hypokinesis of the inferior basal wall. Patient was seen and examined prior to discharge. He had no active complaints. Review of symptoms otherwise negative. Labs and vitals reviewed. Home medication reviewed and reconciled. Physical Exam Const alert, oriented x3, no apparent distress and average body habitus General Appearance: cooperative, comfortable, well kempt and well developed Orientation / Consciousness: awake Exam Limitations: no limitations HEENT normocephalic, head/scalp atraumatic, hearing grossly normal bilaterally and moist oral mucous membranes Mouth: oral and palatal mucosa normal Eyes PERRL Neck no lymphadenopathy and supple Resp normal respiratory effort, no retractions and no use of accessory muscles Cardio regular rate, regular rhythm, S1 normal heart sound, S2 normal heart sound and no murmurs GI normal to inspection, nondistended, normoactive bowel sounds, soft to palpation, non-tender and non-distended Extremity normal to inspection, full ROM and no clubbing, cyanosis or edema Skin no rashes or lesions noted and no wounds Neuro oriented x3, CN's II-XII intact bilaterally, moves all extremities and no focal motor deficits Sensorium / Orientation: awake Motor Exam: strength 5/5 throughout Psych affect normal Weight / BMI Weight Weight: 208 lb 1.862 oz Body Mass Index (BMI) 31.6 ABG / Lab / Microbiology Data 05/30/23 04:00 05/30/23 04:00 Laboratory: Laboratory Results - last 24 hr 05/30/23 04:00: WBC 9.3, RBC 4.29 L, Hgb 13.8, Hct 42.2, MCV 98.4 H, MCH 32.2 H, MCHC 32.7, RDW Std Deviation 49.2 H, RDW Coeff of [place] 13.8, Plt Count 159, MPV 10.1, Immature Gran % (Auto) 0.400, Neut % (Auto) 70.6 H, Lymph % (Auto) 17.9 L, Butts % (Auto) 8.5, Eos % (Auto) 2.1, Baso % (Auto) 0.5, Absolute Neuts (auto) 6.6, Absolute Lymphs (auto) 1.67, Nucleated RBC % 0, APTT 54.8 H, Sodium 140, Potassium 3.9, Chloride 111 H, Carbon Dioxide 23.0, Anion Gap 6, BUN 23 H, Creatinine 1.62 H, Estim Creat Clear Calc 41.21, Est GFR (MDRD) Af Amer 53 L, Est GFR (MDRD) Non-Af 44 L, BUN/Creatinine Ratio 14.2, Glucose 114 H, Calcium 8.8 D/C Instructions Discharge Diet: Low fat / Low cholesterol Weight Bearing Status: Weight bearing as tolerated Call your doctor if you observe: Fever of 101 or Higher, Shortness of breath, Dizziness, Swelling in the ankles and Chest pain Meaningful Use Info Meaningful Use Diagnoses (Choose all that apply): AMI AMI/Post PCI/Angioplasty Aspirin given w/in 24hrs of arrival?: Yes ASA at discharge?: Yes Antiplatelet Therapy at Discharge:: Yes Statins at discharge?: Yes Memo/ARB at discharge?: Yes Beta Faraz at discharge?: Yes Done w/ Acute NC measure.: Yes Documented LVEF (%): 55 Discharge Plan Admission Admit Date/Time: 05/27/23 12:38 Primary Reason for Your Visit: nonstemi Attending Provider: Lisa Cary Primary Care Provider: Waqar Wright Consulting Providers: Jone Kwong; Diego Em Instructions Patient Instructions: Controlling High Blood Pressure, Malignant Hypertension Dc, ED High Blood Pressure Hypertension Discharge Orders/Prescriptions Prescriptions: New losartan 50 mg Tablet 50 mg PO DAILY Qty: 30 2RF carvedilol 25 mg Tablet 25 mg PO BIDCM Qty: 60 2RF Continued nitroglycerin 0.4 mg tablet, sublingual 0.4 mg SUBLINGUAL Q5M PRN (Reason: Chest Pain) Qty: 90 6RF albuterol sulfate [ProAir HFA] 90 mcg/actuation HFA aerosol inhaler 2 puff INHALATION Q6H PRN (Reason: Sob &/Or Wheezing) levothyroxine 100 mcg tablet 100 mcg PO DAILY aspirin [Adult Low Dose Aspirin] 81 mg tablet,delayed release (DR/EC) 81 mg PO DAILY Breo Ellipta 100-25 mcg/dose blister with device 1 inh INHALATION DAILY hydroxychloroquine 200 mg tablet 200 mg PO DAILY ferrous sulfate 325 mg (65 mg iron) tablet 325 mg PO DAILY finasteride 5 mg tablet 5 mg PO DAILY cyanocobalamin (vitamin B-12) 1,000 mcg/mL kit 100 mcg IM QMONTH latanoprost 0.005 % drops 1 drp ophthalmic (eye) QPM gabapentin 100 mg capsule 100 mg PO QHS Patient Comments: TAKE 1 CAPSULE BY MOUTH EVERY DAY AT BEDTIME spironolactone 25 mg tablet 25 mg PO DAILY Qty: 30 5RF Jardiance 10 mg tablet 10 mg PO DAILY Qty: 30 5RF atorvastatin 40 MG tablet 40 mg PO QHS Patient Comments: cholesterol omeprazole 20 MG capsule 20 mg PO DAILY Patient Comments: acid reflux tamsulosin 0.4 mg capsule 0.4 mg PO Q24H Patient Comments: increase urine flow pramipexole 1 mg tablet 3 mg PO QHS Arnuity Ellipta 200 mcg/actuation blister with device 1 inh INHALATION Q24H Patient Comments: INHALE 1 PUFF BY MOUTH EVERY DAY WITH GOOD ORAL CARE Discontinued metoprolol succinate 25 mg tablet extended release 24 hr 25 mg PO DAILY Referrals / Follow Up: Jone Kwong MD [Med Staff - Active Staff] - 06/13/23 10:30 am (Please get bloodwork done the week of 06-06-23. ) Waqar Wright DO [Primary Care Provider] - Within 1 Week (Please call the office to schedule an appt. ) Disposition Disposition (needs filled in before D/C Order can be placed): Home, Self Care Charges/Coding Visit Charges Inpatient E&M: 19219 Disch Hosp >30min
--- NOTE | 2023-05-30 12:00 | PHA.DC_ITS ---
Pharmacy [facility] has performed discharge medication reconciliation and counseling for this patient. The patient's discharge medication list was reviewed for discrepancies and discrepancies were resolved. The patient was counseled on the following discharge medications and changes in medications for homegoing were reviewed. The Reason for Use, instructions for use, and potential side effects were reviewed for all new medications. The patient's questions regarding all of their medications were answered. 1. Carvedilol 25 mg PO BID with meals 2. Losartan 50 mg PO daily The patient was able to verbally demonstrate an understanding of their discharge medications. Medications at Discharge Home Medications atorvastatin 40 mg tablet 40 mg PO QHS 12/18/12 omeprazole 20 mg capsule,delayed release 20 mg PO DAILY 12/18/12 albuterol sulfate 90 mcg/actuation aerosol inhaler (ProAir HFA) 2 puff inhalation Q6H PRN Sob &/Or Wheezing 07/07/17 nitroglycerin 0.4 mg sublingual tablet 0.4 mg sublingual Q5M PRN Chest Pain #90 tabs 07/13/17 levothyroxine 100 mcg tablet 100 mcg PO DAILY 05/30/18 tamsulosin 0.4 mg capsule 0.4 mg PO Q24H 05/30/18 aspirin 81 mg tablet,delayed release (Adult Low Dose Aspirin) 81 mg PO DAILY 05/25/19 fluticasone furoate 100 mcg-vilanterol 25 mcg/dose inhalation powder (Breo Ellipta) 1 inh inhalation DAILY 05/05/20 hydroxychloroquine 200 mg tablet 200 mg PO DAILY 11/05/21 cyanocobalamin (vitamin B-12) 1,000 mcg/mL injection kit 100 mcg IM QMONTH 05/13/22 ferrous sulfate 325 mg (65 mg iron) tablet 325 mg PO DAILY 05/13/22 finasteride 5 mg tablet 5 mg PO DAILY 05/13/22 latanoprost 0.005 % eye drops 1 drp ophthalmic (eye) QPM 05/13/22 empagliflozin 10 mg tablet (Jardiance) 10 mg PO DAILY #30 tabs 05/05/23 gabapentin 100 mg capsule 100 mg PO QHS 05/05/23 pramipexole 1 mg tablet 3 mg PO QHS RLS 05/05/23 spironolactone 25 mg tablet 25 mg PO DAILY #30 tabs 05/05/23 fluticasone furoate 200 mcg/actuation blister powder for inhalation (Arnuity Ellipta) 1 inh inhalation Q24H 05/27/23 carvedilol 25 mg tablet 25 mg PO BIDCM #60 tabs 05/30/23 losartan 50 mg tablet 50 mg PO DAILY #30 tabs 05/30/23
--- NOTE | 2023-05-30 12:09 | CASEMGMT ---
Patient has order for discharge. RN CM in to discuss needs at discharge. Patient denies needs or help at discharge. Patient had no further questions or concerns at this time.
== END 2023-05-30 14:54 | disposition home or self-care (01) | DRG 282 ==
LOC: ED 11:35 → PCU 12:56
PROVIDERS: Internal Medicine Cardiovascular Disease; Admitting Provider Internal Medicine; Emergency Provider Student in an Organized Health Care Education/Training Program; PCP Family Medicine; Visit Provider Student in an Organized Health Care Education/Training Program
DX: I21.4 Non-ST elevation (NSTEMI) myocardial infarction (principal); E03.9 Hypothyroidism, unspecified; J44.9 Chronic obstructive pulmonary disease, unspecified; M06.9 Rheumatoid arthritis, unspecified; I10 Essential (primary) hypertension; G25.81 Restless legs syndrome; E66.9 Obesity, unspecified; I16.0 Hypertensive urgency; E78.00 Pure hypercholesterolemia, unspecified; I25.10 Atherosclerotic heart disease of native coronary artery without angina pectoris; J45.20 Mild intermittent asthma, uncomplicated; K21.9 Gastro-esophageal reflux disease without esophagitis; I25.2 Old myocardial infarction; K44.9 Diaphragmatic hernia without obstruction or gangrene; N40.1 Benign prostatic hyperplasia with lower urinary tract symptoms; Z68.31 Body mass index [BMI] 31.0-31.9, adult; Z95.5 Presence of coronary angioplasty implant and graft; Z79.82 Long term (current) use of aspirin; Z79.899 Other long term (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
CPT/HCPCS: 36415; 71045; 71275; 74174; 80048; 80076; 83735; 84100; 84484; 85025; 85610; 85730; 93005; 93306; 93454; 94640; 94668; 99152; 99153; 99284; J7030; Q9957; Q9967; A4216; C1769; C1894

== ENCOUNTER → 2023-06-07 | Outpatient (CLI) | payer MEDICARE, SELFPAY ==
[2023-06-07 16:42] LABS: Anion Gap 9 (5-15); BUN 23 mg/dL (7-18); BUN/Creat Ratio 13.1 RATIO (10-20); Calcium,Total 8.9 mg/dL (8.5-10.1); Chloride 110 mmol/L (98-107); Creatinine, Serum 1.75 mg/dL (0.70-1.30); EST Glomerular Filtration Rate 40 mL/min (>60); Est Glom Filt Rate - Afr Amer 49 mL/min (>60); Glucose 87 mg/dL (74-106); Potassium 3.9 mmol/L (3.5-5.1); Sodium Level 142 mmol/L (136-145)
== END | disposition home or self-care (01) ==
LOC: MTLAB 11:22
PROVIDERS: PCP Family Medicine; Referring Provider Internal Medicine Cardiovascular Disease; Visit Provider Internal Medicine Cardiovascular Disease
DX: N28.9 Disorder of kidney and ureter, unspecified (principal)
CPT/HCPCS: 36415; 80048

== ENCOUNTER → 2023-06-13 | Outpatient (CLI) | payer MEDICARE, SELFPAY | END | disposition home or self-care (01) | LOC: LAB 11:19 | PROVIDERS: PCP Family Medicine; Referring Provider Internal Medicine Cardiovascular Disease; Visit Provider Internal Medicine Cardiovascular Disease | DX: R06.09 Other forms of dyspnea (principal) | CPT/HCPCS: 36415; 83880 ==

== ENCOUNTER → 2023-08-12 | Outpatient (CLI) | payer MEDICARE, SELFPAY ==
[2023-08-12 15:22] LABS: Absolute Lymphocyte Count 1.54 X10^3/uL (0.83-4.51); Absolute Neutrophil Count 4.6 X10^3/uL (2.0-7.7); Basophil# 0.03 X10^3/uL; Basophil% 0.4 % (0-1); Eosinophil# 0.13 X10^3/uL; Eosinophils% 1.9 % (0-5); Hematocrit 42.3 % (40-54); Hemoglobin 13.5 g/dL (13.0-16.5); Lymphocyte # 1.54 X10^3/ul (0.83-4.51); Lymphocyte % 22.3 % (19-41); Mean Corp Hgb Conc 31.9 g/dL (32-36); Mean Corpuscular Hgb 32.9 pg (27.0-32.0); Mean Corpuscular Volume 103.2 fL (80-94); Mean Platelet Vol. 10.4 fl (6.2-12.0); Monocyte# 0.56 X10^3/uL; Monocyte% 8.1 % (0-10); NRBC Flagged by Analyzer 0 % (0-5); Neutrophil # 4.62 X10^3/uL (2.7-7.7); Neutrophil % 66.9 % (47-70); Platelet Count 144 K/mm3 (150-450); RBC Distribution Width CV 14.6 % (11.6-14.6); RBC Distribution Width SD 55.8 fl (35.1-43.9); White Blood Count 6.9 K/mm3 (4.4-11.0)
== END | disposition home or self-care (01) ==
PROVIDERS: PCP Family Medicine; Referring Provider Family Medicine; Visit Provider Internal Medicine Pulmonary Disease
DX: R06.02 Shortness of breath (principal); R05.9 Cough, unspecified
CPT/HCPCS: 36415; 85025

== ENCOUNTER → 2023-08-18 | Outpatient (CLI) | payer MEDICARE, SELFPAY ==
--- NOTE | 2023-08-18 14:07 | NEURO_ITS ---
NCS and/or EMG Patient Report Ordering Doctor: Kun Tenorio DATE OF SERVICE: 08/18/23 Clinical Summary: 78 year old male patient with numbness and weakness in the distal lower extremities. He endorses having chronic lower back pain and has had two spinal surgeries. Nerve Conduction Studies Summary: All SNAP's were absent bilaterally in the lower extremities. The left peroneal- EDB CMAP was absent. The right peroneal-EDB CMAP amplitude was reduced diffusely. The tibial-AH CMAP amplitude was reduced diffusely bilaterally. The peroneal-TA CMAP amplitude was reduced diffusely bilaterally. Needle Examination Summary: Needle examination of select muscles of the lower extremities demonstrated a higher proportion of motor unit action potentials with reduced recruitment, increased amplitude, increased duration, and polyphasia in the bilateral tensor fascia marshal, bilateral peroneus longus, and bilateral gastrocnemius muscles. There was higher proportion of motor unit action potentials with reduced amplitude, reduced duration, and polyphasia in the bilateral tibialis anterior muscles. Reduced motor unit firing rates were seen in the bilateral tibialis anterior muscles, which can be seen in the setting of reduced effort and/or pain intolerance. Impression: This was a technically difficult study due to impaired patient mobility. There is electrodiagnostic evidence of the following - 1) Severe, predominantly axonal, sensorimotor, peripheral polyneuropathy 2) Chronic, bilateral L5 radiculopathies There is no electrodiagnostic evidence of a right/left peroneal mononeuropathy. Multi Select Codes Neurology Neurology Interp Codes: 25445-42 Musc test done w/n test comp (interp) (2) and 27265-25 Nrv cndj test 9-10 studies (interp)
== END | disposition home or self-care (01) ==
PROVIDERS: PCP Family Medicine; Referring Provider Psychiatry & Neurology Neurology; Visit Provider Psychiatry & Neurology Neurology
DX: M54.16 Radiculopathy, lumbar region (principal); G62.9 Polyneuropathy, unspecified; M21.371 Foot drop, right foot; M21.372 Foot drop, left foot
CPT/HCPCS: 95886; 95911

== ENCOUNTER 2023-08-31 15:21 | Observation (INO) | payer MEDICARE, SELFPAY ==
[2023-08-30 15:59] LABS: International Normalized Ratio 1.1; Prothrombin Time (Protime)PT. 14.2 SECONDS (11.7-14.9)
[2023-08-30 16:00] LABS: Partial Thromboplast Time 24.5 Seconds (24.1-36.2)
[2023-08-30 16:12] LABS: Vitamin B12 > 2000 pg/mL (211-911)
[2023-08-30 16:29] LABS: AST(SGOT) 16 U/L (15-37); Alanine Aminotransfer ALT/SGPT 21 U/L (16-61); Albumin, Serum 3.5 g/dL (3.2-5.0); Alkaline Phosphatase 81 U/L (45-117); Anion Gap 6 (5-15); BUN 23 mg/dL (7-18); BUN/Creat Ratio 15.2 RATIO (10-20); Bilirubin, Direct 0.14 mg/dL (0.00-0.30); Calcium,Total 8.4 mg/dL (8.5-10.1); Chloride 113 mmol/L (98-107); Creatinine, Serum 1.51 mg/dL (0.70-1.30); EST Glomerular Filtration Rate 48 mL/min (>60); Est Glom Filt Rate - Afr Amer 58 mL/min (>60); Estimated Creatinine Clearance 43.68 ml/min; Globulin 2.9 g/dL (2.2-4.2); Glucose 96 mg/dL (74-106); Potassium 3.7 mmol/L (3.5-5.1); Protein, Total 6.4 g/dL (6.4-8.2); Sodium Level 140 mmol/L (136-145); Thyroid Stim Hormone (TSH) 3.46 uIU/mL (0.358-3.74)
[2023-08-30 16:44] LABS: T4 Free Direct 0.98 ng/dL (0.76-1.46); Thyroid Stim Hormone (TSH) 3.53 uIU/mL (0.358-3.74)
[2023-08-31] VITALS (13 sets, daily range): BP systolic 141–178; BP diastolic 61–97; PULSE 60–72; RESP 14–18; TEMP 36.3–36.8; O2SAT 94–100; BMI 33.5
--- NOTE | 2023-08-31 10:58 | PRE.ANES_ITS ---
ASA Classification* ASA Classification ASA Classification: 3 Assessment & Plan Anesthesia* Anesthesia Assessment Anesthesia Assessment: Discussed sedation and/or anesthesia options, risks, benefits, and alternatives with patient/parents/legal guardian. Questions invited. The patient/parents/legal guardian/POA seems to understand and agrees to proceed with anesthesia plan. Reviewed the physical assessment, medical history, allergy history and patient home medications list prior to surgery/procedure/anesthetic and documented any changes. Performed airway and anesthesia risk assessments. Anesthesia Type Anesthesia Type: General Pre-Assessment Diagnosis/Proposed Procedure Planned Operative Procedure(s): TURP BOTOX 200 UNITS INJECTION INTO THE BLADDER Anesthesia History Anesthesia History - counselling psychologist: Anesthesia History - counselling psychologist Hx Hospitalization Yes: [place] 05/2023 DUE TO 08/23/23 08:59 HYPERTENSIVE URGENCY Any Problems With Anesthesia No 08/23/23 08:59 Cholinesterase deficiency No 08/23/23 08:59 You/Your Family Experience No 08/23/23 08:59 fever (hyperthermia) with Relationship Recent Exposure to Contagious No 09/28/22 07:07 Disease Does patient have nerve No 08/23/23 08:59 stimulator Patient instructed to have device shut off --Does patient have Pacemaker or ICD? When Was Last Pacemaker Check QUESTION #4 FULL TEXT: You/Your Family Experience fever (hyperthermia) with Anesthesia Last Oral Intake Last Oral intake: Last Oral Intake NPO since Meds taken in AM with sips of water? Meds patient instructed to take am of surgery PONV PONV - counselling psychologist: PONV - counselling psychologist Female No 08/23/23 08:59 HX of Motion Sickness No 08/23/23 08:59 HX of N/V After Surgery No 08/23/23 08:59 Non-Smoker Yes 08/23/23 08:59 Duration of Surgery greater Yes 08/23/23 08:59 than 60 minutes Number of Risk Factors 2 08/23/23 08:59 PONV Score Moderate Risk 08/23/23 08:59 Height & Weight Height & Weight: Anesthesia: Height & Weight Height 1.73 m 08/30/23 08:59 Weight: 95.254 kg 08/30/23 08:59 Respiratory Assessment Respiratory Assessment - counselling psychologist: Respiratory Tract Infection Hx - counselling psychologist Hx Respiratory Tract Infection No 08/23/23 08:59 STOP Sleep Apnea STOP Sleep Apnea - counselling psychologist: STOP Sleep Apnea - counselling psychologist Hx Hypertension Yes: CONTROLLED WITH MEDS 08/23/23 08:59 Hx Sleep Apnea Yes 08/23/23 08:59 CPAP Yes 08/23/23 08:59 BIPAP No 08/23/23 08:59 Do you snore loudly (louder than talking or can be heard Do you often feel tired/ fatigued/ sleepy during daytime? Has anyone observed you stop breathing during sleep? STOP Results Positive 08/23/23 08:59 QUESTION #5 FULL TEXT : Do you snore loudly (louder than talking or can be heard through closed doors)? 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 Specify any problems Hx of Preganancy in last 3 N/A 08/23/23 08:59 Months Nurse Filling Out Transfusion DSCHRIBER 08/23/23 08:59 & Questions: Date: 08/23/23 08/23/23 08:59 Time: 09:01 08/23/23 08:59 Patient unable to answer at this time (ie. confused, unrespo /Reproduction History /Reproductive History - counselling psychologist: /Reproductive Hx- counselling psychologist Hx Now No 08/23/23 08:59 Gestational Age (in weeks): EDC: Hx Hx Para Hx Section SAB No 08/23/23 08:59 Active Medications Active Medications: Current Medications Generic Name Dose Route Start Last Admin Trade Name Freq PRN Reason Stop Dose Admin Cefazolin Sodium 2 gm/ Sodium 110 mls @ 150 mls/hr 08/31/23 12:45 Chloride IV 08/31/23 13:28 PREOP ONE Lactated Ringer's 1,000 mls @ 15 mls/hr 08/31/23 11:00 [facility] Anesthesia Focused Assessment* Airway Assessment Mouth opens (cm): 3 Mallampati Score: II Focused Labs Anesthesia Preop lab: CBC WBC 6.9 K/mm3 (4.4-11.0) 08/12/23 13:57 RBC 4.10 M/mm3 (4.6-6.2) L 08/12/23 13:57 Hgb 13.5 g/dL (13.0-16.5) 08/12/23 13:57 Hct 42.3 % (40-54) 08/12/23 13:57 Plt Count 144 K/mm3 (150-450) L 08/12/23 13:57 CHEMISTRY Potassium 3.7 mmol/L (3.5-5.1) 08/30/23 11:49 Sodium 140 mmol/L (136-145) 08/30/23 11:49 Magnesium 2.2 mg/dL (1.6-2.6) 05/28/23 02:27 Phosphorus 4.0 mg/dL (2.5-4.9) 05/28/23 02:27 BUN 23 mg/dL (7-18) H 08/30/23 11:49 Creatinine 1.51 mg/dL (0.70-1.30) H 08/30/23 11:49 Glucose 96 mg/dL (74-106) 08/30/23 11:49 TSH 3.53 uIU/mL (0.358-3.74) 08/30/23 11:50 COAG PT 14.2 SECONDS (11.7-14.9) 08/30/23 11:49 Review of Systems (Anesthesia) ROS Narrative System reviewed and no additional complaints, except as documented. COUNT INCLUDES THE [facility] Medical History Wears hearing aid History of steroid therapy Walker as ambulation aid Bladder disease Prostate disease Back pain Syncope History of CHF (congestive heart failure) History of heart attack Chest pain Renal insufficiency NSTEMI, initial episode of care Hypertensive urgency Elevated troponin Heart failure History of pulmonary embolism Easy bruising Non-smoker Neuropathy Hypertension Chronic serous otitis media of right ear Wears glasses Depression Thyroid disease High cholesterol Restless legs Gastric reflux History of hiatal hernia CPAP (continuous positive airway pressure) dependence Asthma COPD (chronic obstructive pulmonary disease) Shortness of breath on exertion History of edema History of echocardiogram History of stress test Cardiology follow-up encounter Dysphagia Anemia Presence of stent in coronary artery (~09/21/11) Rheumatoid arthritis Hyperlipidemia BPH (benign prostatic hyperplasia) History of kidney stones Atherosclerosis of [place] coronary artery of [place] heart without angina pectoris RENALDO (obstructive sleep apnea) Nephrolithiasis Hiatal hernia Arthritis Essential (primary) hypertension Home Medications ?Medication ?Instructions ?Recorded ?Last Taken ?Type atorvastatin 40 mg tablet 40 mg PO QHS 12/18/12 05/27/23 History omeprazole 20 mg capsule,delayed 20 mg PO DAILY 12/18/12 05/27/23 History release albuterol sulfate 90 mcg/actuation 2 puff inhalation Q6H PRN Sob &/Or 07/07/17 05/27/23 History aerosol inhaler (ProAir HFA) Wheezing nitroglycerin 0.4 mg sublingual 0.4 mg sublingual Q5M PRN Chest 07/13/17 Unknown Rx tablet Pain #90 tabs levothyroxine 100 mcg tablet 100 mcg PO DAILY 05/30/18 05/27/23 History tamsulosin 0.4 mg capsule 0.4 mg PO QHS 05/30/18 05/27/23 History aspirin 81 mg tablet,delayed 81 mg PO DAILY 05/25/19 08/23/23 History release (Adult Low Dose Aspirin) fluticasone furoate 100 1 inh inhalation DAILY 05/05/20 05/26/23 History mcg-vilanterol 25 mcg/dose inhalation powder (Breo Ellipta) hydroxychloroquine 200 mg tablet 200 mg PO DAILY 11/05/21 05/27/23 History cyanocobalamin (vitamin B-12) 100 mcg IM QMONTH 05/13/22 05/05/23 History 1,000 mcg/mL injection kit ferrous sulfate 325 mg (65 mg 325 mg PO DAILY 05/13/22 05/27/23 History iron) tablet finasteride 5 mg tablet 5 mg PO DAILY 05/13/22 05/27/23 History latanoprost 0.005 % eye drops 1 drp ophthalmic (eye) QPM 05/13/22 05/26/23 History empagliflozin 10 mg tablet 10 mg PO DAILY #30 tabs 05/05/23 05/27/23 Rx (Jardiance) pramipexole 1 mg tablet 3 mg PO QHS RLS 05/05/23 05/26/23 History spironolactone 25 mg tablet 25 mg PO DAILY #30 tabs 05/05/23 05/27/23 Rx fluticasone furoate 200 2 inh inhalation QHS 05/27/23 05/26/23 History mcg/actuation blister powder for inhalation (Arnuity Ellipta) carvedilol 25 mg tablet 25 mg PO BIDCM #60 tabs 05/30/23 Unknown Rx losartan 50 mg tablet 50 mg PO DAILY #30 tabs 05/30/23 Unknown Rx Bilateral AFOs #2 ea 07/11/23 Unknown Rx cholecalciferol (vitamin D3) 1,250 1,250 mcg PO QWEEK #4 caps 07/14/23 Unknown Rx mcg (50,000 unit) capsule gabapentin 300 mg capsule 300 mg PO BID 08/23/23 Unknown History mirabegron 25 mg tablet,extended 25 mg PO DAILY 08/23/23 Unknown History release 24 hr (Myrbetriq) Allergy/AdvReac Type Severity Reaction Status Date / Time Antihistamines - AdvReac Other Verified 08/23/23 08:58 Ethylenediamine Family History Father CAD (coronary artery disease) Mother CAD (coronary artery disease) Breast cancer Colon cancer Diabetes Brother CAD (coronary artery disease) CVA (cerebral vascular accident) Diabetes Surgical History Hx of total knee arthroplasty History of ear surgery History of cardiac catheterization History of back surgery Hx of right knee surgery History of esophagogastroduodenoscopy (EGD) Hx of bilateral cataract extraction Hx of colonoscopy History of cystoscopy Presence of coronary angioplasty implant and graft (~09/21/11) History of back surgery (~04/19/17) History of cholecystectomy History of total left knee replacement Hx of appendectomy History of total right knee replacement (TKR) (~03/17/16) Social History Smoking Status: Never smoker alcohol intake: never substance use type: does not use caffeine: Yes Type: carbonated beverages Number of servings: 1 what type of physical activity do you participate in: none seatbelt use: always do you feel safe at home: Yes
[2023-08-31] MEDS: Lactated Ringers 1,000 ML 15 ML IV (11:24)
--- NOTE | 2023-08-31 12:45 | PROS_PTH ---
PATIENT: IMAN ANDREA LOC: MS3 U#:[id number] AGE/SX: 78/M ROOM: [facility] – [place] RE08/31/[address]: Dr. Toy Fisher MD : [id number] BED: 1 DIS: 09/01/2023 SPEC #: [id number] RECD: 08/31/23 16:26 STATUS: GEOFF [facility] #: [id number] LIAM: 08/31/23 12:[address]: Toy Fisher DEPT: SURGICAL PATHOLOGY RECD BY: Maria L Collazo ENTERED: 09/01/23 07:12 SP TYPE: TURP OTHR DR: Dr. Waqar Wright, DO Tissues: Prostate, NOS Procedures: Surgery Specimen Level IV HEADER OPERATION: Transurethral resection of prostate with Olympus and Botox PRE-OP DIAGNOSIS: BPH with obstruction overactive bladder TISSUE SUBMITTED: Prostate tissue MICROSCOPIC DIAGNOSIS Prostate tissue, transurethral resection: Benign prostatic hyperplasia, glandular and stromal type. Acute and chronic inflammation. / 09/02/2023 MICROSCOPIC DESCRIPTION Slides are reviewed. GROSS DESCRIPTION Received is one container labeled with the patient's name and designated prostate tissue. The specimen consists of multiple irregular fragments of pink-talavera, rubbery, soft tissue that in aggregate weigh 15.7 gm and measure in aggregate 5.0 x 5.0 x 3.0 cm. Transportation Maintenance Supervisor tissue is submitted in 10 cassettes. / 09/01/23 TC:5 CPT: 35918
--- NOTE | 2023-08-31 12:58 | HP.PCM_ITS ---
HPI - General General Date of Service: 08/31/23 Chief Complaint: BPH with obstruction overactive bladder HPI Narrative IMAN ANDREA, is a 78 M who presents for transurethral section of prostate and also injection of Botox in the bladder with 100 units have severe significant overactive bladder with urge incontinence to review of Botox 100 units and then also do a TURP to alleviate the obstruction will stent the [facility] Medical History Wears hearing aid History of steroid therapy Walker as ambulation aid Bladder disease Prostate disease Back pain Syncope History of CHF (congestive heart failure) History of heart attack Chest pain Renal insufficiency NSTEMI, initial episode of care Hypertensive urgency Elevated troponin Heart failure History of pulmonary embolism Easy bruising Non-smoker Neuropathy Hypertension Chronic serous otitis media of right ear Wears glasses Depression Thyroid disease High cholesterol Restless legs Gastric reflux History of hiatal hernia CPAP (continuous positive airway pressure) dependence Asthma COPD (chronic obstructive pulmonary disease) Shortness of breath on exertion History of edema History of echocardiogram History of stress test Cardiology follow-up encounter Dysphagia Anemia Presence of stent in coronary artery (~09/21/11) Rheumatoid arthritis Hyperlipidemia BPH (benign prostatic hyperplasia) History of kidney stones Atherosclerosis of [place] coronary artery of [place] heart without angina pectoris RENALDO (obstructive sleep apnea) Nephrolithiasis Hiatal hernia Arthritis Essential (primary) hypertension Home Medications ?Medication ?Instructions ?Recorded ?Last Taken ?Type atorvastatin 40 mg tablet 40 mg PO QHS 12/18/12 08/30/23 History omeprazole 20 mg capsule,delayed 20 mg PO DAILY 12/18/12 08/31/23 History release albuterol sulfate 90 mcg/actuation 2 puff inhalation Q6H PRN Sob &/Or 07/07/17 08/30/23 History aerosol inhaler (ProAir HFA) Wheezing nitroglycerin 0.4 mg sublingual 0.4 mg sublingual Q5M PRN Chest 07/13/17 Unknown Rx tablet Pain #90 tabs levothyroxine 100 mcg tablet 100 mcg PO DAILY 05/30/18 08/31/23 History tamsulosin 0.4 mg capsule 0.4 mg PO QHS 05/30/18 08/30/23 History aspirin 81 mg tablet,delayed 81 mg PO DAILY 05/25/19 08/23/23 History release (Adult Low Dose Aspirin) fluticasone furoate 100 1 inh inhalation DAILY 05/05/20 08/31/23 History mcg-vilanterol 25 mcg/dose inhalation powder (Breo Ellipta) hydroxychloroquine 200 mg tablet 200 mg PO DAILY 11/05/21 08/30/23 History cyanocobalamin (vitamin B-12) 100 mcg IM QMONTH 05/13/22 05/05/23 History 1,000 mcg/mL injection kit ferrous sulfate 325 mg (65 mg 325 mg PO DAILY 05/13/22 08/30/23 History iron) tablet finasteride 5 mg tablet 5 mg PO DAILY 05/13/22 08/30/23 History latanoprost 0.005 % eye drops 1 drp ophthalmic (eye) QPM 05/13/22 08/30/23 History empagliflozin 10 mg tablet 10 mg PO DAILY #30 tabs 05/05/23 08/30/23 Rx (Jardiance) pramipexole 1 mg tablet 3 mg PO QHS RLS 05/05/23 08/30/23 History spironolactone 25 mg tablet 25 mg PO DAILY #30 tabs 05/05/23 08/30/23 Rx fluticasone furoate 200 2 inh inhalation QHS 05/27/23 08/30/23 History mcg/actuation blister powder for inhalation (Arnuity Ellipta) Bilateral AFOs #2 ea 07/11/23 Unknown Rx cholecalciferol (vitamin D3) 1,250 1,250 mcg PO QWEEK #4 caps 07/14/23 Unknown Rx mcg (50,000 unit) capsule gabapentin 300 mg capsule 300 mg PO BID 08/23/23 08/31/23 History mirabegron 25 mg tablet,extended 25 mg PO DAILY 08/23/23 08/30/23 History release 24 hr (Myrbetriq) carvedilol 25 mg tablet 25 mg PO BIDCM #180 tabs 08/31/23 Unknown Rx losartan 50 mg tablet 50 mg PO DAILY #90 tabs 08/31/23 Unknown Rx Allergy/AdvReac Type Severity Reaction Status Date / Time Antihistamines - AdvReac Other Verified 08/31/23 11:12 Ethylenediamine Family History Father CAD (coronary artery disease) Mother CAD (coronary artery disease) Breast cancer Colon cancer Diabetes Brother CAD (coronary artery disease) CVA (cerebral vascular accident) Diabetes Surgical History Hx of total knee arthroplasty History of ear surgery History of cardiac catheterization History of back surgery Hx of right knee surgery History of esophagogastroduodenoscopy (EGD) Hx of bilateral cataract extraction Hx of colonoscopy History of cystoscopy Presence of coronary angioplasty implant and graft (~09/21/11) History of back surgery (~04/19/17) History of cholecystectomy History of total left knee replacement Hx of appendectomy History of total right knee replacement (TKR) (~03/17/16) Social History Smoking Status: Never smoker alcohol intake: never substance use type: does not use caffeine: Yes Type: carbonated beverages Number of servings: 1 what type of physical activity do you participate in: none seatbelt use: always do you feel safe at home: Yes Vital Signs Vital Signs Vital Signs: 08/31/23 11:19 08/31/23 11:19 Temperature 98.3 F Temperature Source Temporal Pulse Rate 65 Respiratory Rate 16 Respiratory Pattern Normal Blood Pressure 178/97 H Blood Pressure Mean 124 Blood Pressure Source Monitor Blood Pressure Position Semi-Fowlers Blood Pressure Location Left Arm Pulse Ox 97 Oxygen Delivery Method Room Air Weight Weight: 100 kg Body Mass Index (BMI) 33.5 Results Lab / Micro Data 08/30/23 11:49 Labs: Laboratory Results - last 24 hr 08/30/23 11:49: PT 14.2, INR 1.1, APTT 24.5, Sodium 140, Potassium 3.7, Chloride 113 H, Carbon Dioxide 21.0, Anion Gap 6, BUN 23 H, Creatinine 1.51 H, Estim Creat Clear Calc 43.68, Est GFR (MDRD) Af Amer 58 L, Est GFR (MDRD) Non-Af 48 L, BUN/Creatinine Ratio 15.2, Glucose 96, Calcium 8.4 L, Total Bilirubin 0.40, Direct Bilirubin 0.14, AST 16, ALT 21, Alkaline Phosphatase 81, Total Protein 6.4, Albumin 3.5, Globulin 2.9, TSH 3.46 08/30/23 11:50: Vitamin B12 > 2000 H, Folate 7.50, TSH 3.53, Free T4 0.98
[2023-08-31] MEDS: Cefazolin 2 GM in 0.9% Normal Saline (100mL Bag) 100 ML IV (13:22)
--- NOTE | 2023-08-31 13:26 | DCINST_ITS ---
Discharge Instructions Diet Discharge Diet: No restrictions, Light diet - advance as tolerated and Soft diet Activity Discharge Activity: Return to Normal Activity Follow Up Care Please Follow Up With: Toy Fisher MD When: call for appt 2 weeks Test Results: Test results from this visit will be discussed in further detail at your follow- up appointment, if applicable. Discharge Plan Admission Primary Reason for Your Visit: turp and botox Attending Provider: Toy Fisher Primary Care Provider: Waqar Wright Instructions Print Language: Ethiopian Discharge Orders/Prescriptions Prescriptions: New ciprofloxacin HCl [Cipro] 500 mg tablet 500 mg PO BID Qty: 14 0RF Continued nitroglycerin 0.4 mg tablet, sublingual 0.4 mg SUBLINGUAL Q5M PRN (Reason: Chest Pain) Qty: 90 6RF albuterol sulfate [ProAir HFA] 90 mcg/actuation HFA aerosol inhaler 2 puff INHALATION Q6H PRN (Reason: Sob &/Or Wheezing) levothyroxine 100 mcg tablet 100 mcg PO DAILY Breo Ellipta 100-25 mcg/dose blister with device 1 inh INHALATION DAILY hydroxychloroquine 200 mg tablet 200 mg PO DAILY ferrous sulfate 325 mg (65 mg iron) tablet 325 mg PO DAILY cyanocobalamin (vitamin B-12) 1,000 mcg/mL kit 100 mcg IM QMONTH latanoprost 0.005 % drops 1 drp ophthalmic (eye) QPM (DME) Bilateral AFOs See Rx Instructions .Route .MEDSUPPLY Qty: 2 0RF Rx Instructions: As directed for bilateral foot drop, polyneuropathy and chronic lumbar radiculopathy. cholecalciferol (vitamin D3) 1,250 mcg (50,000 unit) capsule 1,250 mcg PO QWEEK Qty: 4 5RF spironolactone 25 mg tablet 25 mg PO DAILY Qty: 30 5RF Jardiance 10 mg tablet 10 mg PO DAILY Qty: 30 5RF atorvastatin 40 MG tablet 40 mg PO QHS Patient Comments: cholesterol omeprazole 20 MG capsule 20 mg PO DAILY Patient Comments: acid reflux pramipexole 1 mg tablet 3 mg PO QHS Arnuity Ellipta 200 mcg/actuation blister with device 2 inh INHALATION QHS Patient Comments: INHALE 1 PUFF BY MOUTH EVERY DAY WITH GOOD ORAL CARE gabapentin 300 mg capsule 300 mg PO BID carvedilol 25 mg tablet 25 mg PO BIDCM Qty: 180 3RF losartan 50 mg tablet 50 mg PO DAILY Qty: 90 3RF Held aspirin [Adult Low Dose Aspirin] 81 mg tablet,delayed release (DR/EC) 81 mg PO DAILY Hold Instructions: Resume on 09/14/23. Discontinued finasteride 5 mg tablet 5 mg PO DAILY tamsulosin 0.4 mg capsule 0.4 mg PO QHS Patient Comments: increase urine flow mirabegron [Myrbetriq] 25 mg tablet extended release 24 hr 25 mg PO DAILY Referrals / Follow Up: Toy Fisher MD [Med Staff - Active Staff] - Waqar Wright DO [Primary Care Provider] - Disposition Disposition (needs filled in before D/C Order can be placed): Home, Self Care
[2023-08-31] MEDS: 0.9% Normal Saline (Pres. free 10 ML Vial (13:46)
[2023-08-31] MEDS: Botulinum Toxin A 100 Units Vial 200 UNITS IJ (13:46)
--- NOTE | 2023-08-31 14:37 | PCM.OPRPT ---
Report of Operation Date of Procedure: 09/07/23 Pre-Operative Diagnosis: Overactive bladder with frequency and urgency and BPH with obstruction Post-Operative Diagnosis: The same Surgery/Procedure Performed:: Cystoscopy injection of Botox in the bladder 100 units and transurethral resection of the prostate Description of Surgical Findings:: This is an 78-year-old male who has very poor bladder function the minute he gets the urge to go he can hardly hold it and has accidents on cystoscopy found to have fairly significant bilateral hypertrophy with obstruction it was a fairly heavily trabeculated bladder with trabeculations throughout the bladder he has tried medical therapy with no improvement discussed that will prior recommend we do a Botox injection of the bladder at the bladder to relax but he understands it is possible that even with intervention he may still have poor bladder control and working to proceed with a transurethral resection of the obstructive prostate to help with bladder emptying since he has obstructive prostate that could be contributing to his poor bladder control. No guarantees were made to the patient that after surgery he will have full control of his bladder patient or stands this. Patient was taken back to the operating room at this with induction of anesthesia he was placed in dorsolithotomy position. Went of the bladder with a 21 [place] rigid cystourethroscope and upon entering the bladder there is no stones but it was heavily trabeculated in the back of the bladder I then used a 18-gauge Botox needle and injected 100 units of Botox in about 10 sites in the back of the bladder between the large trabeculations in the bladder after this was done then I switched over to the resectoscope essentially had bilateral hypertrophy no median lobe significant obstruction coming from both sides I then started resecting the resected down at the 6:[address] laterally up to the 12:00 on the right side and and then laterally on the 12:00 on the right side left side and then kept coming back to the verumontanum I resected a fairly nice wide open channel try to do a flow test was still had fairly poor flow so then I switched over to the button and smooth out the resection and then very carefully resected the apical tissue stain and from the verumontanum the whole time and then at the end I had resected like all the obstructive tissue between the verumontanum and the bladder neck flow test was still fairly weak but I felt like there was no more that I can resect so at this point I got all the chips of the bladder he cauterize extensively to obtain hemostasis put a 22 [place] catheter in the bladder with continuous irrigation and we will keep him overnight for irrigation I think for this situation since his age weakness can leave the catheter in for about 2 weeks to let it heal and then I will see him in the office 2 weeks from now to remove the catheter for voiding trial patient was anesthetic was reversed he is taken back to the PACU in good condition and he will be kept overnight for observation. Surgeon: Toy Fisher Type of Anesthesia: General Drains: 22ffr [address] Estimated Blood Loss (mL): 0 Admit VTE Documentation VTE Present on Admission: No VTE Mechan Device Prophylaxis: SCD's VTE Pharm Prophylaxis ordered?: No
--- NOTE | 2023-08-31 14:41 | PCM.POST.ANE ---
Anesthesia: Postop Eval I Current Vital Signs Temperature: 97.9 F Pulse Rate: 64 Blood Pressure: 141/88 Respiratory Rate: 14 Pulse Ox: 96 Oxygen Delivery Method: Room Air Assessment Airway patent: No Spontaneous unlabored respirations: No Mental status: Awake and Calm nausea: No Vomiting: No Anesthesia Complication: No Fluid Hydration Crystalloid volume administer (ml): 600 Total IV fluid infused: 600 Progress Note Anesthesia document: Postop Eval 1 completed: Yes
[2023-08-31] MEDS: Ketorolac 15 MG/ML Vial IV (15:06)
--- NOTE | 2023-08-31 15:24 | PCM.POSTANE2 ---
Anesthesia Postop Eval I Sum Postop Eval Completion status Anesthesia document: Postop Eval 1 completed: Yes Anesthesia Postop Eval I Summary Anesthesia Postop Eval I Summary: Anesthesia Postop Eval I: Assessment Summary Airway patent No 08/31/23 14:48 [email or web address] Spontaneous unlabored No 08/31/23 14:48 [email or web address] respirations Mental status Awake,Calm 08/31/23 14:48 [email or web address] nausea No 08/31/23 14:48 [email or web address] Vomiting No 08/31/23 14:48 [email or web address] Anesthesia Postop Eval I: Fluid Summary Crystalloid volume administer 600 08/31/23 14:48 [email or web address] (ml) Colloids volume administered ( ml) Blood Product volume administered (ml) Total IV fluid infused 600 08/31/23 14:48 [email or web address] Anesthesia Postop Eval I: Summary Notes Anesthesia Complication No 08/31/23 14:48 [email or web address] Anesthesia Complication Comment: Post-operative progress note Anesthesia: Postop Eval II Evaluation Mental status: Awake Pain Level: 0 nausea: No Vomiting: No Complications Anesthesia Complication: No
[2023-08-31] MEDS: Carvedilol 25 MG Tablet PO (16:30)
[2023-08-31] MEDS: Albuterol 2.5 MG/3 ML VIAL.NEB. INHALATION (19:44)
[2023-08-31] MEDS: Budesonide Respules 0.5 MG/2 ML AMPUL.NEB. INHALATION (19:44)
[2023-08-31] MEDS: 0.9% Normal Saline (1000mL) 1,000 ML 50 ML IV (20:20)
[2023-08-31] MEDS: Docusate Sodium 100 MG Capsule 200 MG PO (21:51)
[2023-08-31] MEDS: Atorvastatin Calcium 40 MG Tablet PO (21:51)
[2023-08-31] MEDS: Ciprofloxacin 400 MG/200 ML BAG 200 MG IV (21:51)
[2023-08-31] MEDS: Gabapentin 300 MG Capsule PO (21:51)
[2023-08-31] MEDS: Pramipexole Di-HCl 1 MG Tablet 3 MG PO (22:23)
[2023-08-31] MEDS: Latanoprost 0.005% 1 Bottle 1 DRP OPHTHALMIC (22:24)
[2023-09-01 00:04] VITALS: BMI 33.5
[2023-09-01 03:40] VITALS: BMI 33.5
[2023-09-01 03:46] VITALS: BP 153/84; PULSE 61; RESP 15; TEMP 36.6; O2SAT 97
[2023-09-01 04:00] VITALS: RESP 15
[2023-09-01] MEDS: Levothyroxine 100 MCG Tablet PO (06:05)
[2023-09-01] MEDS: Albuterol 2.5 MG/3 ML VIAL.NEB. INHALATION ×2 (07:04→13:23)
[2023-09-01] MEDS: Budesonide Respules 0.5 MG/2 ML AMPUL.NEB. INHALATION (07:04)
[2023-09-01 07:06] VITALS: PULSE 76; RESP 16
[2023-09-01 07:22] LABS: Hematocrit 39.8 % (40-54); Hemoglobin 12.7 g/dL (13.0-16.5); Mean Corp Hgb Conc 31.9 g/dL (32-36); Mean Corpuscular Volume 103.4 fL (80-94); Mean Platelet Vol. 10.2 fl (6.2-12.0); Platelet Count 155 K/mm3 (150-450); RBC Distribution Width SD 53.1 fl (35.1-43.9); Red Blood Count 3.85 M/mm3 (4.6-6.2); White Blood Count 11.3 K/mm3 (4.4-11.0)
--- NOTE | 2023-09-01 07:34 | PCM.PN.GU ---
Subjective Subjective 78-year-old male status post TURP, he can go home today with a Martinez catheter. Objective Data Objective Data Vital Signs: Vital Signs Temp Pulse Resp BP Pulse Ox O2 Del Method 97.8 F 61 15 153/84 H 97 CPAP 09/01/23 03:46 09/01/23 03:46 09/01/23 04:00 09/01/23 03:46 09/01/23 03:46 09/01/23 04:00 Oxygen Delivery Method CPAP Weight: 100 kg Body Mass Index (BMI) 33.5 Intake & Output: Intake and Output for Last 24 Hours 08/30/23 08/31/23 09/01/23 23:59 23:59 23:59 Intake Total 530.25 / 530.25 100 / 100 Output Total 750 / 750 800 / 800 Balance -219.75 / -219.75 -700 / -700 Lab / Micro Data 09/01/23 06:29 08/30/23 11:49 Labs: Laboratory Results - last 24 hr 09/01/23 06:29: WBC 11.3 H, RBC 3.85 L, Hgb 12.7 L, Hct 39.8 L, MCV 103.4 H, MCH 33.0 H, MCHC 31.9 L, RDW Std Deviation 53.1 H, RDW Coeff of Cornell 14.0, Plt Count 155, MPV 10.2
[2023-09-01 08:08] VITALS: BP 158/80; PULSE 68; RESP 18; TEMP 36.8; O2SAT 96
[2023-09-01] MEDS: Acetaminophen 325 MG Tablet PO (08:30)
[2023-09-01] MEDS: Carvedilol 25 MG Tablet PO (08:30)
[2023-09-01] MEDS: Losartan Potassium 50 MG Tablet PO (09:35)
[2023-09-01] MEDS: Ciprofloxacin 400 MG/200 ML BAG 200 MG IV (09:35)
[2023-09-01] MEDS: Docusate Sodium 100 MG Capsule 200 MG PO (09:35)
[2023-09-01] MEDS: Gabapentin 300 MG Capsule PO (09:35)
[2023-09-01] MEDS: Pantoprazole Sodium 20 MG Tablet PO (09:35)
--- NOTE | 2023-09-01 09:43 | PHA.DC_ITS ---
Pharmacy [facility] has performed discharge medication reconciliation and counseling for this patient. The patient's discharge medication list was reviewed for discrepancies and discrepancies were resolved. The patient was counseled on the following discharge medications and changes in medications for homegoing were reviewed. 1. CIPRO The Reason for Use, instructions for use, and potential side effects were reviewed for all new medications. The patient's questions regarding all of their medications were answered. The patient demonstrated some understanding but would benefit from further education and reinforcement. The patient was counselled by Avis De La Paz, KathieD Candidate. Patient was also offered for pharmacy to come back once family arrived if they had any additional questions. Medications at Discharge Home Medications atorvastatin 40 mg tablet 40 mg PO QHS 12/18/12 omeprazole 20 mg capsule,delayed release 20 mg PO DAILY 12/18/12 albuterol sulfate 90 mcg/actuation aerosol inhaler (ProAir HFA) 2 puff inhalation Q6H PRN Sob &/Or Wheezing 07/07/17 nitroglycerin 0.4 mg sublingual tablet 0.4 mg sublingual Q5M PRN Chest Pain #90 tabs 07/13/17 levothyroxine 100 mcg tablet 100 mcg PO DAILY 05/30/18 aspirin 81 mg tablet,delayed release (Adult Low Dose Aspirin) 81 mg PO DAILY 05/25/19 fluticasone furoate 100 mcg-vilanterol 25 mcg/dose inhalation powder (Breo Ellipta) 1 inh inhalation DAILY 05/05/20 hydroxychloroquine 200 mg tablet 200 mg PO DAILY 11/05/21 cyanocobalamin (vitamin B-12) 1,000 mcg/mL injection kit 100 mcg IM QMONTH 05/13/22 ferrous sulfate 325 mg (65 mg iron) tablet 325 mg PO DAILY 05/13/22 latanoprost 0.005 % eye drops 1 drp ophthalmic (eye) QPM 05/13/22 empagliflozin 10 mg tablet (Jardiance) 10 mg PO DAILY #30 tabs 05/05/23 pramipexole 1 mg tablet 3 mg PO QHS RLS 05/05/23 spironolactone 25 mg tablet 25 mg PO DAILY #30 tabs 05/05/23 fluticasone furoate 200 mcg/actuation blister powder for inhalation (Arnuity Ellipta) 2 inh inhalation QHS 05/27/23 Bilateral AFOs #2 ea 07/11/23 cholecalciferol (vitamin D3) 1,250 mcg (50,000 unit) capsule 1,250 mcg PO QWEEK #4 caps 07/14/23 gabapentin 300 mg capsule 300 mg PO BID 08/23/23 carvedilol 25 mg tablet 25 mg PO BIDCM #180 tabs 08/31/23 ciprofloxacin HCl 500 mg tablet (Cipro) 500 mg PO BID #14 tabs 08/31/23 losartan 50 mg tablet 50 mg PO DAILY #90 tabs 08/31/23
[2023-09-01 10:13] LABS: Anion Gap 8 (5-15); BUN 27 mg/dL (7-18); BUN/Creat Ratio 17.4 RATIO (10-20); Calcium,Total 8.6 mg/dL (8.5-10.1); Chloride 110 mmol/L (98-107); Creatinine, Serum 1.55 mg/dL (0.70-1.30); EST Glomerular Filtration Rate 46 mL/min (>60); Est Glom Filt Rate - Afr Amer 56 mL/min (>60); Estimated Creatinine Clearance 43.57 ml/min; Glucose 140 mg/dL (74-106); Sodium Level 139 mmol/L (136-145)
--- NOTE | 2023-09-01 10:33 | CASEMGMT ---
Discharge Planning A list of?HH providers including quality and resource use data and consistent with the patient's preferred geographic region, medical needs, and insurance network was created in [employer] Guide.? This list was provided to the RN CHRISTIANO. Kirsten Reaves, Discharge Planning Asst.
--- NOTE | 2023-09-01 10:34 | CASEMGMT ---
Addendum entered by Maame Kirk 09/01/23 11:32: MARK ALVARADO into pt room, pt and son aware that [facility] accepted pt and will start tomorrow. Pt standing at chair with walker asking if PT will can take him for a walk. Spoke with therapy who will eval and OT order entered. Pt and son deny further needs at this time. Addendum entered by Maame Kirk 09/01/23 10:56: MARK ALVARADO into pt room, provided pt with a HH list created by dc shipping assistant. Pt chose 1. [facility] 2. [facility] 3. [facility]. Pt reports he just switched from a CPAP to bipap at home this week. Pt using [facility]. Provided pt and son with a private duty agency list as well. Original Note: MARK ALVARADO into pt room, pt son at bedside. Pt is sitting up in chair in no distress. Pt lives alone. He has private duty aides Tue-Tuesday 9a-4p and every other weekend through [employer]. Pt qualifies for 24 hour care but cannot find coverage for this. He has penitentiary care insurance. Pt has a cane, walker and rollator at home. Pt lives in a single story home with a ramp to enter. Pt is aware he will dc with a celis. Pt states he feels his legs are weak. Discussed HHC with pt, pt is agreeable to this. Son is also. Discussed having SN, PT and OT in the home. DC shipping assistant to print a list of HHC options.
--- NOTE | 2023-09-01 10:59 | CASEMGMT ---
Addendum entered by Renee Perez 09/01/23 11:38: Ngoc from [facility] called and confirmed they will accept pt. Cristina asked if therapy will see pt before DC. Will F/U with therapy to see if they can see pt before going home. Original Note: MARK ALVARADO called ngoc at [facility] to see if they can accept pt. Ngoc will call back and let me know if able to accept.
[2023-09-01] MEDS: Empagliflozin 10 MG Tablet PO (11:42)
[2023-09-01] MEDS: Spironolactone 25 MG Tablet PO (11:42)
[2023-09-01] MEDS: Hydroxychloroquine 200 MG Tablet PO (11:42)
[2023-09-01 12:04] VITALS: BMI 33.5
[2023-09-01 13:23] VITALS: PULSE 65; RESP 16
[2023-09-01 13:39] VITALS: BP 127/62; PULSE 69; RESP 20; TEMP 36.6; O2SAT 98
[2023-09-05 00:06] LABS: Free Kappa Light Chains 22.5 mg/L (3.3-19.4); Free Lambda Light Chains 16.4 mg/L (5.7-26.3); Vitamin B1, Thiamine 115.7 nmol/L (66.5-200.0)
== END 2023-09-01 14:18 | disposition home or self-care (01) ==
LOC: SDC 09-05 16:35 → MS3 09-05 16:40
PROVIDERS: Anesthesiology; Psychiatry & Neurology Neurology; Admitting Provider Urology; PCP Family Medicine; Referring Provider Urology; Visit Provider Urology
PROC: 0VT08ZZ Resection of Prostate, Via Natural or Artificial Opening Endoscopic (ICD-10-PCS; CPT 52601; principal; 2023-08-31 12:35)
DX: N40.1 Benign prostatic hyperplasia with lower urinary tract symptoms (principal); I11.0 Hypertensive heart disease with heart failure; I50.9 Heart failure, unspecified; J44.9 Chronic obstructive pulmonary disease, unspecified; N13.8 Other obstructive and reflux uropathy; E78.00 Pure hypercholesterolemia, unspecified; I25.10 Atherosclerotic heart disease of native coronary artery without angina pectoris; R35.0 Frequency of micturition; R39.15 Urgency of urination; K21.9 Gastro-esophageal reflux disease without esophagitis; G47.33 Obstructive sleep apnea (adult) (pediatric); Z79.899 Other long term (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; N39.41 Urge incontinence
CPT/HCPCS: 52601; 00914; 52287; 36415; 80048; 80076; 82607; 82746; 83883; 84425; 84439; 84443; 85027; 85610; 85730; 88305; 94640; 94668; 96365; 96366; 97162; 97166; J7030; J7120; J0585; J0744; J2405; J3490

== ENCOUNTER → 2023-09-14 | Outpatient (CLI) | payer MEDICARE, SELFPAY ==
[2023-09-14 12:27] LABS: Absolute Lymphocyte Count 1.16 X10^3/uL (0.83-4.51); Absolute Neutrophil Count 7.4 X10^3/uL (2.0-7.7); Basophil# 0.05 X10^3/uL; Basophil% 0.5 % (0-1); Eosinophil# 0.27 X10^3/uL; Eosinophils% 2.8 % (0-5); Hematocrit 41.3 % (40-54); Hemoglobin 13.4 g/dL (13.0-16.5); Lymphocyte # 1.16 X10^3/ul (0.83-4.51); Lymphocyte % 12.1 % (19-41); Mean Corp Hgb Conc 32.4 g/dL (32-36); Mean Corpuscular Hgb 33.7 pg (27.0-32.0); Mean Corpuscular Volume 103.8 fL (80-94); Mean Platelet Vol. 9.3 fl (6.2-12.0); Monocyte# 0.67 X10^3/uL; NRBC Flagged by Analyzer 0 % (0-5); Neutrophil % 77.3 % (47-70); Platelet Count 152 K/mm3 (150-450); RBC Distribution Width CV 13.5 % (11.6-14.6); RBC Distribution Width SD 52.3 fl (35.1-43.9); Red Blood Count 3.98 M/mm3 (4.6-6.2); White Blood Count 9.6 K/mm3 (4.4-11.0)
[2023-09-14 12:54] LABS: BNP,B-Type NATRIURETIC PEPTIDE 33.7 pg/mL (0-100)
[2023-09-14 13:06] LABS: Anion Gap 4 (5-15); BUN 22 mg/dL (7-18); BUN/Creat Ratio 12.8 RATIO (10-20); Calcium,Total 8.8 mg/dL (8.5-10.1); Chloride 111 mmol/L (98-107); Creatinine, Serum 1.72 mg/dL (0.70-1.30); EST Glomerular Filtration Rate 41 mL/min (>60); Est Glom Filt Rate - Afr Amer 49 mL/min (>60); Glucose 101 mg/dL (74-106); Potassium 4.2 mmol/L (3.5-5.1); Sodium Level 141 mmol/L (136-145); Thyroid Stim Hormone (TSH) 1.92 uIU/mL (0.358-3.74)
== END | disposition home or self-care (01) ==
PROVIDERS: PCP Family Medicine; Referring Provider Nurse Practitioner Gerontology; Visit Provider Nurse Practitioner Gerontology
DX: R06.09 Other forms of dyspnea (principal); R53.83 Other fatigue
CPT/HCPCS: 36415; 80048; 83880; 84443; 85025

== ENCOUNTER → 2023-09-29 | Outpatient (CLI) | payer MEDICARE, SELFPAY ==
[2023-09-29 15:22] LABS: Absolute Lymphocyte Count 1.37 X10^3/uL (0.83-4.51); Absolute Neutrophil Count 4.2 X10^3/uL (2.0-7.7); Basophil# 0.04 X10^3/uL; Basophil% 0.6 % (0-1); Eosinophil# 0.14 X10^3/uL; Eosinophils% 2.2 % (0-5); Hematocrit 42.4 % (40-54); Hemoglobin 13.5 g/dL (13.0-16.5); Lymphocyte # 1.37 X10^3/ul (0.83-4.51); Lymphocyte % 21.7 % (19-41); Mean Corp Hgb Conc 31.8 g/dL (32-36); Mean Corpuscular Hgb 32.8 pg (27.0-32.0); Mean Corpuscular Volume 103.2 fL (80-94); Mean Platelet Vol. 9.6 fl (6.2-12.0); Monocyte# 0.57 X10^3/uL; NRBC Flagged by Analyzer 0 % (0-5); Neutrophil # 4.17 X10^3/uL (2.7-7.7); Platelet Count 154 K/mm3 (150-450); RBC Distribution Width CV 13.1 % (11.6-14.6); RBC Distribution Width SD 50.2 fl (35.1-43.9); Red Blood Count 4.11 M/mm3 (4.6-6.2); White Blood Count 6.3 K/mm3 (4.4-11.0)
[2023-09-29 16:03] LABS: AST(SGOT) 18 U/L (15-37); Alanine Aminotransfer ALT/SGPT 20 U/L (16-61); Albumin, Serum 3.4 g/dL (3.2-5.0); Alkaline Phosphatase 94 U/L (45-117); Anion Gap 7 (5-15); BUN 20 mg/dL (7-18); BUN/Creat Ratio 11.8 RATIO (10-20); Calcium,Total 8.9 mg/dL (8.5-10.1); Chloride 111 mmol/L (98-107); EST Glomerular Filtration Rate 41 mL/min (>60); Est Glom Filt Rate - Afr Amer 50 mL/min (>60); Globulin 3.3 g/dL (2.2-4.2); Glucose 114 mg/dL (74-106); Phosphorus 3.4 mg/dL (2.5-4.9); Potassium 3.9 mmol/L (3.5-5.1); Protein, Total 6.7 g/dL (6.4-8.2); Sodium Level 140 mmol/L (136-145)
== END | disposition home or self-care (01) ==
LOC: MTLAB 12:53
PROVIDERS: PCP Family Medicine; Referring Provider Internal Medicine Rheumatology; Visit Provider Internal Medicine Rheumatology
DX: N18.31 Chronic kidney disease, stage 3a (principal); M46.90 Unspecified inflammatory spondylopathy, site unspecified; Z79.899 Other long term (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
CPT/HCPCS: 36415; 80053; 84100; 85025

== ENCOUNTER → 2023-10-04 | Outpatient (CLI) | payer MEDICARE, SELFPAY ==
--- NOTE | 2023-10-04 13:02 | CDU_ITS ---
Reason For Study: Lightheadedness Rt. Velocities/BP Lt. Velocities/BP Prox CCA 69.2/6.9 cm/sec. Prox CCA 50.2/8.4 cm/sec. Mid CCA 69.2/8.8 cm/sec. Mid CCA 58.1/10.1 cm/sec. Dist CCA 58.2/7.2 cm/sec. Dist CCA 44.6/9.7 cm/sec. Prox ICA 50.6/8.1 cm/sec. Prox ICA 36.3/6.6 cm/sec. Mid ICA 32.5 cm/sec. Mid ICA 30.0/8.9 cm/sec. Dist ICA 65.1/18.0 cm/sec. Dist ICA 31.7/7.9 cm/sec. Rt. ICA/CCA = 0.94. Lt. ICA/CCA = 0.62. Prox ECA 74.3/7.3 cm/sec. Prox ECA 77.6/7.3 cm/sec. Rt. Vert. 32.0/6.9 cm/sec. Lt. Vert. 42.4/10.4 cm/sec. Right Extracranial There is intimal thickening but no significant atherosclerotic plaque noted in the right common carotid artery. There is heterogeneous, irregular atherosclerotic plaque noted in the right internal carotid artery. There is heterogeneous, irregular atherosclerotic plaque noted in the right external carotid artery. Antegrade flow is noted in the right vertebral artery. Left Extracranial There is intimal thickening but no significant atherosclerotic plaque noted in the left common carotid artery. There is heterogeneous, irregular atherosclerotic plaque noted in the left internal carotid artery. There is intimal thickening but no significant atherosclerotic plaque noted in the left external carotid artery. Antegrade flow is noted in the left vertebral artery. Procedure Carotid Duplex [id number]. This is a Carotid Duplex examination using B-mode, color flow and specral Doppler. Exam performed in department. VL/Carotid Duplex Ultrasound Interpretation Summary Mild (<50%) stenosis right extracranial internal carotid. Mild (<50%) stenosis left extracranial internal carotid. Patent and antegrade vertebrals bilaterally. Ordering Physician: Autumn Ramirez Referring Physician: Waqar Wright Performed By: Mónica Day RVT and Student
== END | disposition home or self-care (01) ==
PROVIDERS: PCP Family Medicine; Referring Provider Nurse Practitioner Gerontology; Visit Provider Nurse Practitioner Gerontology
DX: R42 Dizziness and giddiness (principal)
CPT/HCPCS: 93880

== ENCOUNTER → 2023-11-07 | Outpatient (CLI) | payer MEDICARE, SELFPAY ==
[2023-11-07 15:25] LABS: Albumin, Serum 3.4 g/dL (3.2-5.0); BUN 27 mg/dL (7-18); BUN/Creat Ratio 14.5 RATIO (10-20); Calcium,Total 8.9 mg/dL (8.5-10.1); Chloride 111 mmol/L (98-107); Creatinine, Serum 1.86 mg/dL (0.70-1.30); EST Glomerular Filtration Rate 37 mL/min (>60); Est Glom Filt Rate - Afr Amer 45 mL/min (>60); Glucose 92 mg/dL (74-106); Phosphorus 3.3 mg/dL (2.5-4.9); Potassium 5.2 mmol/L (3.5-5.1); Sodium Level 138 mmol/L (136-145)
== END | disposition home or self-care (01) ==
LOC: MTLAB 11:22
PROVIDERS: PCP Family Medicine; Referring Provider Internal Medicine Nephrology; Visit Provider Internal Medicine Nephrology
DX: N18.31 Chronic kidney disease, stage 3a (principal)
CPT/HCPCS: 36415; 80069

== ENCOUNTER → 2023-11-14 | Outpatient (CLI) | payer MEDICARE, SELFPAY ==
[2023-11-17 12:09] LABS: Albumin 3.5 g/dL (2.9-4.4); Alpha-1-Globulins 0.2 g/dL (0.0-0.4); Alpha-2-Globulins 0.6 g/dL (0.4-1.0); Immunoglobulin A 106 mg/dL (61-437); Immunoglobulin G 1012 mg/dL (603-1613); Immunoglobulin M 109 mg/dL (15-143); Vitamin D 1,25-Dihydroxy 26.5 pg/mL (24.8-81.5)
== END | disposition home or self-care (01) ==
LOC: MTLAB 13:12
PROVIDERS: PCP Family Medicine; Referring Provider Psychiatry & Neurology Neurology; Visit Provider Psychiatry & Neurology Neurology
DX: E55.9 Vitamin D deficiency, unspecified (principal); G62.9 Polyneuropathy, unspecified
CPT/HCPCS: 36415; 82652; 82784; 84165; 86334; 86335

== ENCOUNTER → 2023-11-17 | Outpatient (CLI) | payer MEDICARE, SELFPAY ==
[2023-11-17 16:07] LABS: Anion Gap 3 (5-15); BUN 26 mg/dL (7-18); BUN/Creat Ratio 13.8 RATIO (10-20); Chloride 112 mmol/L (98-107); Creatinine, Serum 1.89 mg/dL (0.70-1.30); EST Glomerular Filtration Rate 37 mL/min (>60); Est Glom Filt Rate - Afr Amer 44 mL/min (>60); Glucose 98 mg/dL (74-106); Potassium 4.2 mmol/L (3.5-5.1); Sodium Level 141 mmol/L (136-145)
[2023-11-22 13:07] LABS: Angiotensin Convert Enzyme 38 U/L (14-82)
== END | disposition home or self-care (01) ==
LOC: MTLAB 13:01
PROVIDERS: PCP Family Medicine; Referring Provider Internal Medicine Nephrology; Visit Provider Internal Medicine Nephrology
DX: R06.02 Shortness of breath (principal); N17.9 Acute kidney failure, unspecified
CPT/HCPCS: 36415; 80048; 82164

== ENCOUNTER → 2023-12-02 | Outpatient (CLI) | payer MEDICARE, SELFPAY ==
[2023-12-02 19:06] LABS: Anion Gap 8 (5-15); BUN 23 mg/dL (7-18); BUN/Creat Ratio 14.7 RATIO (10-20); Calcium,Total 9.6 mg/dL (8.5-10.1); Chloride 111 mmol/L (98-107); Creatinine, Serum 1.56 mg/dL (0.70-1.30); EST Glomerular Filtration Rate 46 mL/min (>60); Est Glom Filt Rate - Afr Amer 55 mL/min (>60); Glucose 96 mg/dL (74-106); Potassium 4.1 mmol/L (3.5-5.1); Sodium Level 142 mmol/L (136-145)
== END | disposition home or self-care (01) ==
LOC: MTLAB 14:58
PROVIDERS: PCP Family Medicine; Referring Provider Internal Medicine Nephrology; Visit Provider Internal Medicine Nephrology
DX: N17.9 Acute kidney failure, unspecified (principal)
CPT/HCPCS: 36415; 80048

== ENCOUNTER → 2024-01-09 | Outpatient (CLI) | payer MEDICARE, SELFPAY ==
[2024-01-09 15:48] LABS: Anion Gap 4 (5-15); BUN 25 mg/dL (7-18); BUN/Creat Ratio 17.2 RATIO (10-20); Calcium,Total 9.3 mg/dL (8.5-10.1); Chloride 112 mmol/L (98-107); Creatinine, Serum 1.45 mg/dL (0.70-1.30); EST Glomerular Filtration Rate 50 mL/min (>60); Est Glom Filt Rate - Afr Amer 60 mL/min (>60); Glucose 95 mg/dL (74-106); Potassium 4.2 mmol/L (3.5-5.1); Sodium Level 140 mmol/L (136-145)
== END | disposition home or self-care (01) ==
PROVIDERS: PCP Family Medicine; Referring Provider Internal Medicine Nephrology; Visit Provider Internal Medicine Nephrology
DX: N17.9 Acute kidney failure, unspecified (principal)
CPT/HCPCS: 36415; 80048

== ENCOUNTER → 2024-01-26 | Outpatient (CLI) | payer MEDICARE, SELFPAY ==
[2024-01-26 15:05] LABS: Albumin, Serum 3.6 g/dL (3.2-5.0); BUN 19 mg/dL (7-18); BUN/Creat Ratio 10.9 RATIO (10-20); Calcium,Total 8.7 mg/dL (8.5-10.1); Chloride 113 mmol/L (98-107); Creatinine, Serum 1.74 mg/dL (0.70-1.30); EST Glomerular Filtration Rate 40 mL/min (>60); Est Glom Filt Rate - Afr Amer 49 mL/min (>60); Glucose 143 mg/dL (74-106); Phosphorus 3.2 mg/dL (2.5-4.9); Potassium 3.6 mmol/L (3.5-5.1); Sodium Level 142 mmol/L (136-145)
== END | disposition home or self-care (01) ==
PROVIDERS: PCP Family Medicine; Referring Provider Internal Medicine Nephrology; Visit Provider Internal Medicine Nephrology
DX: N18.31 Chronic kidney disease, stage 3a (principal)
CPT/HCPCS: 36415; 80069

== ENCOUNTER → 2024-02-01 | Outpatient (CLI) | payer MEDICARE, SELFPAY ==
--- NOTE | 2024-02-01 11:01 | RAD_ITS ---
STUDY: X-RAY - PELVIS AND RIGHT HIP REASON FOR EXAM: Male, 78 years old. PAIN TECHNIQUE: 3 views of the pelvis and right hip. COMPARISON: None. FINDINGS: There is a non-specific bowel gas pattern. There are multiple calcified phleboliths. Normal bilateral iliac wings, sacroiliac joints and visualized sacrum. Normal bilateral superior and inferior pubic rami. Normal pubic symphysis. Normal bilateral ischial tuberosities. There are mild osteoarthritic changes of the femoral heads bilaterally with tiny marginal osteophyte formation. There is mild osteoarthritic spur formation of the acetabular rims bilaterally. Intact hip joints. There is no demonstrated acute fracture. There is bilateral fusion hardware in the visualized lower lumbar spine. RAD/HIP, UNI W/ Pelvis 2-3 Views IMPRESSION: Mild degenerative arthrosis of the hip joints bilaterally. No demonstrated acute fracture. Electronically Signed: Jose Ely MD at 15:18 EST ,
== END | disposition home or self-care (01) ==
LOC: MTRAD 10:59
PROVIDERS: PCP Family Medicine; Referring Provider Family Medicine; Visit Provider Family Medicine
DX: M25.551 Pain in right hip (principal)
CPT/HCPCS: 73502

== ENCOUNTER 2024-02-07 14:00 | Outpatient (RCR) | payer MEDICARE, SELFPAY ==
--- NOTE | 2023-11-28 14:25 | HP.PTEVAL_ITS ---
Patient's Visit Information Visit Information Visit Information: IMAN ANDREA is a 78 year old M referred to Physical Therapy by Dr. Kun Tenorio MD with a diagnosis of ABNORMALITIES OF GAIT AND MOBILITY ,LOW BACK PAIN ,RADICULOPATHY. Date of Evaluation: 11/28/23 Physical Therapist: Joseph Fisher, PT, Cert MDT, OCS Visit Plan Frequency: 5x /Week Duration: 4 Weeks Plan: PT INTERVENTIONS BALANCE TRAINING , BLE STRENGTHENING ,LUMBAR ROM ,POSTURAL EX'S ,FUNCTIONAL STRENGTHENING AND DLS Subjective Subjective: This 78 y/o male presents to physical therapy gait difficulty and low back pain. Patient has had progressive weakness in legs and balance thus started using rollator. Patient has neuropathy with numbness in legs. Patient has h/o lumbar pain. In the past year year patient has multiple comorbities affecting function . Patient has no recent falls. Patient has bilateral below knee to foot and right leg hip to knee. Patient has h/o scoliosis with lumbar surgery 3 years ago. Aggravating factors walking/standing ,difficulty bending forward. Alleviating factors rest. Coughing/sneezing-. Bowel/bladder -. Patient dizziness and nausea. Patient has difficulty sleeping. 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 Patient 1story home with 2 steps with ramp . Walk in shower with seat and grab bars. 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 Pain Bilateral Back: Pain Intensity (Out of 10): 3 Pain Intensity Range: 10 Objective Objective: POSTURE: scolisis ,asymmetries pelvis ,forward posture NEURO: denies paresthesia/tingling ,reflexes 1/3 L3-4,L4-5,L5-S1 GAIT: ambulates with rollator slow molina hip/knees flexed trunk flexed LUMBAR ROM: flexion mod loss ,extension severe loss ,side glides mod loss MMT: ( peak force) right quads/hams /hip 0 ,left 4/5 except ankle 4-/5 BALANCE: fair with fww FLEXABILITY: hamstrings mod tight AROM: supine knee flexion 0-115 degrees Balance/Special Test Scores CATSIB Score (Max score 120 seconds): 22 Lower Extremity Functional Score: 16 TUG Test Time Seconds: 28.91 Goals Goal 1:: Patient to be I with HEP Goal Time Frame: 4-6 Weeks Goal 2:: Patient to improve strength peak right leg quads/hams/hip by 5-10 # to improve gait Goal Time Frame: 4-6 Weeks Goal 3:: Patient to improve lumbar ROM for function of recovery to put on shoes. Goal Time Frame: 4-6 Weeks Goal 4:: Patient to improve improve LFES score by 5 points to improve QOL and balance Goal Time Frame: 4-6 Weeks Goal 5:: Patient to improve CATSIB by 5 points to improve QOL and function Goal Time Frame: 4-6 Weeks Rehabilitation Potential Physical Therapy Diagnosis: This patient has multiple comorbities to influence condition along with weakness right > left leg,decrease gait ,balance ,poor lumbar ROM and back pain thus benefit from skilled PT Rehabilitation Potential: Fair Anticipated Interventions Patient/Client Instruction: Educate patient on: Condition and Plan of Care For the Purpose of:: To decrease pain, To increase ROM, To improve muscle performance and motor function, To improve ability to perform ADL's, To increase tolerance to activity/condition/position, To improve ability of physical actions for home/community/work/leisure, To improve health of tissue, To decrease soft tissue restriction, To increase flexibility/ROM, To improve balance, To improve safety with gait and To improve tolerance to ADL's Therapeutic Exercise to Include: Strength training, Endurance training, Balance training, Postural training, Flexibilty training, Gait and locomotor training and Dynamic Lumbar Stabilization For the Purpose of:: To decrease pain, To increase ROM, To improve muscle performance and motor function, To improve ability to perform ADL's, To increase tolerance to activity/condition/position, To improve ability of physical actions for home/community/work/leisure, To improve gait and locomotor functions, To improve health of tissue, To decrease soft tissue restriction, To increase flexibility/ROM, To improve endurance, To improve balance and To improve tolerance to ADL's Text: Thank you for the opportunity to evaluate your patient. For Medicare and Medicare HMO plans, please review the plan of care and approve it. It will need to be FAXED BACK to us at [phone] for Medicare purposes. For Medicare only, by signing this I certify the plan of care. Please let me know if there are questions or concerns regarding this plan of care. Physician Signature: Date:
--- NOTE | 2023-12-22 13:05 | HP.PTREVAL_ITS ---
Re-Evaluation Intro: Dr. Kun Tenorio MD, It has been my pleasure to treat IMAN ANDREA over the last 7 visits for ABNORMALITIES OF GAIT AND MOBILITY ,LOW BACK PAIN ,RADICULOPATHY. Please see the progress note below for an update on the physical therapy plan of care! Subjective Subjective: Doing some better . Machines are better I get intermittent spasms Objective Objective/Function: *Patient will cont to benefit from skilled PT to decrease back pain ,patient has shown improvement with increasing strength thus goals adjusted and are appropriate* POSTURE: scolisis ,asymmetries pelvis ,forward posture NEURO: denies paresthesia/tingling ,reflexes 1/3 L3-4,L4-5,L5-S1 GAIT: ambulates with rollator slow molina hip/knees flexed trunk flexed LUMBAR ROM: flexion mod loss ,extension severe loss ,side glides mod loss MMT: ( peak force) right quads 24.7 , hams hip 208.3. ,left 4/5 except ankle 4- /5 BALANCE: fair with fww FLEXABILITY: hamstrings mod tight AROM: supine knee flexion 0-115 degrees Plan Plan Plan: PT INTERVENTIONS BALANCE TRAINING , BLE STRENGTHENING ,LUMBAR ROM ,POSTURAL EX'S ,FUNCTIONAL STRENGTHENING AND DLS Balance/Gait/Functional tests Balance/Special Test Scores CATSIB Score (Max score 120 seconds): 24 Lower Extremity Functional Score: 16 TUG Test Time Seconds: 27.2 Tug Test: 20-30sec.=variable mobility Goals Goals Goal 1:: Patient to be I with HEP Goal Time Frame: 4-6 Weeks Goal Progress: Progressing Goal 2:: Patient to improve strength peak right leg quads/hams/hip by 5-10 # to improve gait( new goals) Goal Time Frame: 4-6 Weeks Goal Progress: Progressing Goal 3:: Patient to improve lumbar ROM for function of recovery to put on shoes. Goal Time Frame: 4-6 Weeks Goal Progress: Progressing Goal 4:: Patient to improve improve LFES score by 5 points to improve QOL and balance Goal Time Frame: 4-6 Weeks Goal Progress: Progressing Goal 5:: Patient to improve CATSIB by 5 points to improve QOL and function Goal Time Frame: 4-6 Weeks Goal Progress: Progressing Anticipated Interventions Anticipated Interventions Patient/Client Instruction: Educate patient on: Condition and Plan of Care For the Purpose of:: To decrease pain, To increase ROM, To improve muscle performance and motor function, To improve ability to perform ADL's, To increase tolerance to activity/condition/position, To improve ability of physical actions for home/community/work/leisure, To improve health of tissue, To decrease soft tissue restriction, To increase flexibility/ROM, To improve balance, To improve safety with gait and To improve tolerance to ADL's Therapeutic Exercise to Include: Strength training, Endurance training, Balance training, Postural training, Flexibilty training, Gait and locomotor training and Dynamic Lumbar Stabilization For the Purpose of:: To decrease pain, To increase ROM, To improve muscle performance and motor function, To improve ability to perform ADL's, To increase tolerance to activity/condition/position, To improve ability of physical actions for home/community/work/leisure, To improve gait and locomotor functions, To improve health of tissue, To decrease soft tissue restriction, To increase flexibility/ROM, To improve endurance, To improve balance and To improve tolerance to ADL's Re-Evaluation Ending Re-evaluation ending: Please do not hesitate to contact me at [phone] by phone or if you have questions or concerns regarding this new plan of care! Sincerely, Joseph Fisher, PT, Cert MDT, OCS
--- NOTE | 2024-01-19 12:26 | HP.PTREVAL ---
Re-Evaluation Intro: Dr. Kun Tenorio MD, It has been my pleasure to treat IMAN ANDREA over the last 14 visits for ABNORMALITIES OF GAIT AND MOBILITY ,LOW BACK PAIN ,RADICULOPATHY. Please see the progress note below for an update on the physical therapy plan of care! Subjective Subjective: Pain in right hip is worse especially Objective Objective/Function: *Patient will cont to benefit from skilled PT to decrease back pain ,patient has shown improvement with increasing strength thus goals adjusted and are appropriate* POSTURE: scolisis ,asymmetries pelvis ,forward posture NEURO: denies paresthesia/tingling ,reflexes 1/3 L3-4,L4-5,L5-S1 GAIT: ambulates with rollator slow molina hip/knees flexed trunk flexed LUMBAR ROM: flexion mod loss ,extension severe loss ,side glides mod loss MMT: ( peak force) right quads 27.7 , hams 25.3. , hip flexion 4.8 left 4/5 except ankle 4-/5 BALANCE: fair with fww FLEXABILITY: hamstrings mod tight AROM: supine knee flexion 0-115 degrees ,hip flexion 95 degrees Plan Plan Plan: PT INTERVENTIONS BALANCE TRAINING , BLE STRENGTHENING ,LUMBAR ROM ,POSTURAL EX'S ,FUNCTIONAL STRENGTHENING AND DLS Balance/Gait/Functional tests Balance/Special Test Scores CATSIB Score (Max score 120 seconds): 24 Lower Extremity Functional Score: 16 TUG Test Time Seconds: 27.2 Tug Test: 20-30sec.=variable mobility Goals Goals Goal 1:: Patient to be I with HEP Goal Time Frame: 4-6 Weeks Goal Progress: Progressing Goal 2:: Patient to improve strength peak right leg quads/hams/hip by 5-10 # to improve gait( new goals) Goal Time Frame: 4-6 Weeks Goal Progress: Progressing Goal 3:: Patient to improve lumbar ROM for function of recovery to put on shoes. Goal Time Frame: 4-6 Weeks Goal Progress: Progressing Goal 4:: Patient to improve improve LFES score by 5 points to improve QOL and balance Goal Time Frame: 4-6 Weeks Goal Progress: Progressing Goal 5:: Patient to improve CATSIB by 5 points to improve QOL and function Goal Time Frame: 4-6 Weeks Goal Progress: Progressing Anticipated Interventions Anticipated Interventions Patient/Client Instruction: Educate patient on: Condition and Plan of Care For the Purpose of:: To decrease pain, To increase ROM, To improve muscle performance and motor function, To improve ability to perform ADL's, To increase tolerance to activity/condition/position, To improve ability of physical actions for home/community/work/leisure, To improve health of tissue, To decrease soft tissue restriction, To increase flexibility/ROM, To improve balance, To improve safety with gait and To improve tolerance to ADL's Therapeutic Exercise to Include: Strength training, Endurance training, Balance training, Postural training, Flexibilty training, Gait and locomotor training and Dynamic Lumbar Stabilization For the Purpose of:: To decrease pain, To increase ROM, To improve muscle performance and motor function, To improve ability to perform ADL's, To increase tolerance to activity/condition/position, To improve ability of physical actions for home/community/work/leisure, To improve gait and locomotor functions, To improve health of tissue, To decrease soft tissue restriction, To increase flexibility/ROM, To improve endurance, To improve balance and To improve tolerance to ADL's Re-Evaluation Ending Re-evaluation ending: Please do not hesitate to contact me at [phone] by phone or if you have questions or concerns regarding this new plan of care! Sincerely, Joseph Fisher, PT, Cert MDT, OCS
--- NOTE | 2024-03-22 15:15 | HP.PT.NRP ---
Patient Information Patient Information: IMAN ANDREA was seen in my office for initial evaluation on 11/28/23. The following Plan of Care was established for this patient: POC Established Initial Frequency: 5x /Week Initial Duration: 4 Weeks Anticipated Interventions Patient/Client Instruction: Educate patient on: Condition and Plan of Care For the Purpose of:: To decrease pain, To increase ROM, To improve muscle performance and motor function, To improve ability to perform ADL's, To increase tolerance to activity/condition/position, To improve ability of physical actions for home/community/work/leisure, To improve health of tissue, To decrease soft tissue restriction, To increase flexibility/ROM, To improve balance, To improve safety with gait and To improve tolerance to ADL's Therapeutic Exercise to Include: Strength training, Endurance training, Balance training, Postural training, Flexibilty training, Gait and locomotor training and Dynamic Lumbar Stabilization For the Purpose of:: To decrease pain, To increase ROM, To improve muscle performance and motor function, To improve ability to perform ADL's, To increase tolerance to activity/condition/position, To improve ability of physical actions for home/community/work/leisure, To improve gait and locomotor functions, To improve health of tissue, To decrease soft tissue restriction, To increase flexibility/ROM, To improve endurance, To improve balance and To improve tolerance to ADL's Last Seen Last Seen: This patient was last seen in our office . Pertinent comments regarding their Physical therapy will appear below: Patient was seen for PT for gait abnormality adn back for strengthening ,patient was doing well but was worsening with pain ,weakness increase edema in legs thus d/c At this point I will be discontinuing this patient from physical therapy. I would be happy to see this patient again in the future if found appropriate by the physician. Thank you! Joseph Fisher, PT, Cert MDT, OCS Balance/Gait/Functional tests Balance/Special Test Scores CATSIB Score (Max score 120 seconds): 24 Lower Extremity Functional Score: 16 TUG Test Time Seconds: 27.2 Tug Test: 20-30sec.=variable mobility
== END 2024-02-07 19:00 | disposition home or self-care (01) ==
LOC: PT 14:00
PROVIDERS: PCP Family Medicine; Referring Provider Psychiatry & Neurology Neurology; Visit Provider Psychiatry & Neurology Neurology
DX: M54.16 Radiculopathy, lumbar region (principal); M54.50 Low back pain, unspecified; R26.9 Unspecified abnormalities of gait and mobility; G62.9 Polyneuropathy, unspecified
CPT/HCPCS: 97110; 97162; 97530

== ENCOUNTER → 2024-02-09 | Outpatient (CLI) | payer MEDICARE, SELFPAY ==
[2024-02-09 13:49] LABS: Anion Gap 8 (5-15); BUN 26 mg/dL (7-18); BUN/Creat Ratio 14.4 RATIO (10-20); Calcium,Total 9.1 mg/dL (8.5-10.1); Chloride 105 mmol/L (98-107); EST Glomerular Filtration Rate 39 mL/min (>60); Est Glom Filt Rate - Afr Amer 47 mL/min (>60); Glucose 96 mg/dL (74-106); Potassium 3.6 mmol/L (3.5-5.1); Sodium Level 142 mmol/L (136-145)
== END | disposition home or self-care (01) ==
LOC: POLAB3 11:42
PROVIDERS: PCP Family Medicine; Visit Provider Internal Medicine Nephrology
DX: N18.31 Chronic kidney disease, stage 3a (principal)
CPT/HCPCS: 36415; 80048

== ENCOUNTER 2024-02-13 15:18 | Outpatient (CLI) | payer MEDICARE, SELFPAY ==
[2024-02-13 15:43] VITALS: PULSE 73; RESP 16; TEMP 35.9; O2SAT 96; BMI 34.9
[2024-02-13] MEDS: 0.9% NaCl Peripheral Flush Adult/Peds IV ×2 (15:51→15:59)
[2024-02-13] MEDS: Furosemide 40 MG/4 ML Vial IV (15:51)
== END 2024-02-13 23:59 | disposition home or self-care (01) ==
LOC: MEDOUTP 15:19
PROVIDERS: PCP Family Medicine; Referring Provider Internal Medicine Cardiovascular Disease; Visit Provider Internal Medicine Cardiovascular Disease
DX: I50.30 Unspecified diastolic (congestive) heart failure (principal)
CPT/HCPCS: 96374; A4216; J1940

== ENCOUNTER 2024-02-14 14:11 | Outpatient (CLI) | payer MEDICARE, SELFPAY ==
[2024-02-14 14:18] VITALS: BP 136/73; PULSE 81; RESP 20; TEMP 35.6; O2SAT 96
[2024-02-14] MEDS: Furosemide 40 MG/4 ML Vial IV (14:29)
== END 2024-02-14 23:59 | disposition home or self-care (01) ==
LOC: MEDOUTP 14:12
PROVIDERS: PCP Family Medicine; Referring Provider Internal Medicine Cardiovascular Disease; Visit Provider Internal Medicine Cardiovascular Disease
DX: I50.30 Unspecified diastolic (congestive) heart failure (principal)
CPT/HCPCS: 96374; A4216; J1940

== ENCOUNTER 2024-02-15 08:37 | Outpatient (CLI) | payer MEDICARE, SELFPAY ==
[2024-02-15 14:46] VITALS: BP 130/66; PULSE 84; RESP 16; TEMP 35.8; O2SAT 97
[2024-02-15] MEDS: 0.9% NaCl Peripheral Flush Adult/Peds IV ×2 (14:50→14:56)
[2024-02-15] MEDS: Furosemide 40 MG/4 ML Vial IV (14:56)
== END 2024-02-15 23:59 | disposition home or self-care (01) ==
LOC: MEDOUTP 08:38
PROVIDERS: PCP Family Medicine; Referring Provider Internal Medicine Cardiovascular Disease; Visit Provider Internal Medicine Cardiovascular Disease
DX: I50.30 Unspecified diastolic (congestive) heart failure (principal)
CPT/HCPCS: 96374; A4216; J1940

== ENCOUNTER → 2024-02-28 | Outpatient (CLI) | payer MEDICARE, SELFPAY ==
[2024-02-28 16:28] LABS: Albumin, Serum 3.7 g/dL (3.2-5.0); BUN 21 mg/dL (7-18); Calcium,Total 9.5 mg/dL (8.5-10.1); Chloride 112 mmol/L (98-107); Creatinine, Serum 1.75 mg/dL (0.70-1.30); EST Glomerular Filtration Rate 40 mL/min (>60); Est Glom Filt Rate - Afr Amer 48 mL/min (>60); Glucose 121 mg/dL (74-106); Phosphorus 2.9 mg/dL (2.5-4.9); Potassium 3.7 mmol/L (3.5-5.1); Sodium Level 142 mmol/L (136-145)
== END | disposition home or self-care (01) ==
LOC: MTLAB 13:41
PROVIDERS: PCP Family Medicine; Referring Provider Internal Medicine Nephrology; Visit Provider Internal Medicine Nephrology
DX: N17.9 Acute kidney failure, unspecified (principal)
CPT/HCPCS: 36415; 80069

== ENCOUNTER → 2024-03-01 | Outpatient (CLI) | payer MEDICARE, SELFPAY ==
[2024-03-01 13:15] LABS: Hematocrit 37.8 % (40-54); Hemoglobin 12.5 g/dL (13.0-16.5); Mean Corp Hgb Conc 33.1 g/dL (32-36); Mean Corpuscular Hgb 32.5 pg (27.0-32.0); Mean Corpuscular Volume 98.2 fL (80-94); Mean Platelet Vol. 10.4 fl (6.2-12.0); Platelet Count 156 K/mm3 (150-450); RBC Distribution Width CV 12.9 % (11.6-14.6); Red Blood Count 3.85 M/mm3 (4.6-6.2); White Blood Count 6.5 K/mm3 (4.4-11.0)
[2024-03-01 13:33] LABS: BNP,B-Type NATRIURETIC PEPTIDE 48.6 pg/mL (0-100)
== END | disposition home or self-care (01) ==
LOC: LAB 12:31
PROVIDERS: PCP Family Medicine; Referring Provider Internal Medicine Cardiovascular Disease; Visit Provider Internal Medicine Cardiovascular Disease
DX: R06.02 Shortness of breath (principal)
CPT/HCPCS: 36415; 83880; 85027

== ENCOUNTER → 2024-03-16 | Outpatient (CLI) | payer MEDICARE, SELFPAY ==
--- NOTE | 2024-03-16 09:10 | ECHOD_ITS ---
Reason For Study: CHF Procedure This was a 2D Doppler, Color Flow transthoracic echocardiogram. Exam performed in department. Left Ventricle Normal LV size. Left ventricular systolic function is normal. The left ventricular ejection fraction is 65 %. No regional wall motion abnormalities noted. Right Ventricle Normal RV size. Normal systolic function. Atria Normal left atrium. Normal right atrium. Mitral Valve Normal mitral valve. Mild-Moderate (1-2+) eccentric mitral valve insufficiency. Tricuspid Valve Normal tricuspid valve. Mild (1+) tricuspid valve insufficiency. Pulmonary artery systolic pressure is 35 mmHg. Aortic Valve Trisinus/trileaflet aortic valve. Mild focal aortic valve calcification. Mild (1+) aortic valve insufficiency. Pulmonic Valve The pulmonic valve is not well visualized. Great Vessels Normal aortic root. The pulmonary artery is normal size. Inferior vena cava collapse with respiration. Pericardium/Pleural No pericardial effusion. MMode/2D Measurements & Calculations LVIDd: 4.1 cm IVSd: 1.0 cm asc Aorta Diam: 3.1 cm LVIDs: 2.9 cm LVPWd: 1.0 cm RVDd: 3.7 cm FS: 29.8 % LAV(MOD-bp): 39.3 ml LVAd ap4: 24.6 cm2 SV(MOD-sp4): 42.5 ml LAV(MOD-bp) Indexed: 18.5 ml/m2 LVLd ap4: 7.5 cm SI(MOD-sp4): 20.0 ml/m2 LAV(MOD-sp2): 51.1 ml EDV(MOD-sp4): 67.6 ml LAV(MOD-sp4): 28.8 ml EDV(sp4-el): 68.8 ml LVAs ap4: 13.4 cm2 LVLs ap4: 6.3 cm ESV(MOD-sp4): 25.0 ml ESV(sp4-el): 24.5 ml EF(MOD-sp4): 62.9 % EF(sp4-el): 64.4 % SV(sp4-el): 44.3 ml LA A4 area: 13.2 cm2 LA dimension(2D): 2.9 cm RA A4 area: 19.2 cm2 TAPSE: 3.3 cm Time Measurements MV dec time: 0.19 sec Doppler Measurements & Calculations MV E max david: 91.5 cm/sec Lat Peak E' David: 7.2 cm/sec Med Peak E' David: 6.1 cm/sec MV A max david: 104.6 cm/sec E/E' lat: 12.6 E/E' med: 15.0 MV E/A: 0.87 Ao V2 max: 127.8 cm/sec LV V1 max: 109.5 cm/sec MV dec slope: 469.4 cm/sec2 Ao max P.5 mmHg LV V1 max P.8 mmHg Ao V2 mean: 96.0 cm/sec Ao mean P.9 mmHg Ao V2 VTI: 31.1 cm PA V2 max: 77.5 cm/sec TR max david: 285.4 cm/sec TR max P.6 mmHg ECHO/Echo Complete Interpretation Summary Normal LV size. Left ventricular systolic function is normal. The left ventricular ejection fraction is 65 %. Mild-Moderate (1-2+) eccentric mitral valve insufficiency. Mild (1+) tricuspid valve insufficiency. Ordering Physician: Jone Kwong Referring Physician: Waqar Wright Performed By: Kateryna Ramirez, SHANT, RVT
== END | disposition home or self-care (01) ==
LOC: CVS 09:03
PROVIDERS: PCP Family Medicine; Referring Provider Internal Medicine Cardiovascular Disease; Visit Provider Internal Medicine Cardiovascular Disease
DX: R06.02 Shortness of breath (principal)
CPT/HCPCS: 93306

== ENCOUNTER → 2024-03-20 | Outpatient (CLI) | payer MEDICARE, SELFPAY ==
[2024-03-20 14:55] LABS: Absolute Lymphocyte Count 1.41 X10^3/uL (0.83-4.51); Absolute Neutrophil Count 3.3 X10^3/uL (2.0-7.7); Basophil# 0.04 X10^3/uL; Basophil% 0.7 % (0-1); Eosinophil# 0.12 X10^3/uL; Eosinophils% 2.2 % (0-5); Hematocrit 39.2 % (40-54); Hemoglobin 12.6 g/dL (13.0-16.5); Lymphocyte # 1.41 X10^3/ul (0.83-4.51); Lymphocyte % 25.8 % (19-41); Mean Corp Hgb Conc 32.1 g/dL (32-36); Mean Corpuscular Hgb 31.7 pg (27.0-32.0); Mean Corpuscular Volume 98.5 fL (80-94); Mean Platelet Vol. 9.7 fl (6.2-12.0); Monocyte# 0.56 X10^3/uL; Monocyte% 10.2 % (0-10); NRBC Flagged by Analyzer 0 % (0-5); Neutrophil # 3.33 X10^3/uL (2.7-7.7); Neutrophil % 60.9 % (47-70); Platelet Count 163 K/mm3 (150-450); RBC Distribution Width CV 13.1 % (11.6-14.6); RBC Distribution Width SD 47.2 fl (35.1-43.9); Red Blood Count 3.98 M/mm3 (4.6-6.2); White Blood Count 5.5 K/mm3 (4.4-11.0)
[2024-03-20 15:10] LABS: ALB/GLOB Ratio 1.1 RATIO (0.9-2.4); AST(SGOT) 14 U/L (15-37); Alanine Aminotransfer ALT/SGPT 19 U/L (16-61); Albumin, Serum 3.6 g/dL (3.2-5.0); Alkaline Phosphatase 96 U/L (45-117); Anion Gap 4 (5-15); BUN 22 mg/dL (7-18); BUN/Creat Ratio 13.5 RATIO (10-20); Calcium,Total 9.1 mg/dL (8.5-10.1); Chloride 110 mmol/L (98-107); Creatinine, Serum 1.63 mg/dL (0.70-1.30); EST Glomerular Filtration Rate 43 mL/min (>60); Est Glom Filt Rate - Afr Amer 53 mL/min (>60); Globulin 3.2 g/dL (2.2-4.2); Glucose 89 mg/dL (74-106); Protein, Total 6.8 g/dL (6.4-8.2); Sodium Level 142 mmol/L (136-145)
== END | disposition home or self-care (01) ==
PROVIDERS: PCP Family Medicine; Referring Provider Internal Medicine Rheumatology; Visit Provider Internal Medicine Rheumatology
DX: M46.90 Unspecified inflammatory spondylopathy, site unspecified (principal); M17.0 Bilateral primary osteoarthritis of knee; Z79.899 Other long term (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
CPT/HCPCS: 36415; 80053; 85025

== ENCOUNTER 2024-04-03 18:31 | Emergency (ER) | payer MEDICARE, SELFPAY ==
[2024-04-03 18:32] VITALS: BP 180/85; PULSE 66; RESP 18; TEMP 36.3; O2SAT 99; BMI 34.2
--- NOTE | 2024-04-03 18:45 | CT_ITS ---
EXAM: CT CERVICAL SPINE WITHOUT INTRAVENOUS CONTRAST CLINICAL INDICATION: fall TECHNIQUE: Helically acquired images were obtained of the cervical spine without intravenous contrast. 2D reformatted images were reviewed. This CT exam was performed using one or more of the following dose reduction techniques: automated exposure control, adjustment of the mA and/or kV according to patient size, and/or use of iterative reconstruction technique. RADIATION DOSE: CTDIvol = 24.04 mGy, DLP = 448.77 mGy-cm COMPARISON: No relevant prior studies available. FINDINGS: VERTEBRAE: Spondylosis at multiple levels. Multilevel facet joint hypertrophic changes. Fusion of the bilateral C2-C3 facet joints and bilateral C5-C6 facet joints. DISCS/SPINAL CANAL/NEURAL FORAMINA: Marked disc space narrowing at C5-C7 and milder disc space narrowing at C2-C5. Mild anterolisthesis of C3 with respect to C4 roughly 3 mm, and at C4 with respect to C5 of 3.7 mm, this appears chronic. The midline canal at C3-C4 appears mildly narrowed due to osteophyte-disc complex, estimated to be 9.2 mm. At least mild neural foraminal stenosis at C3-C4 through C6-7. SOFT TISSUES: Unremarkable. No prevertebral soft tissue swelling. VASCULATURE: Mild cervical carotid calcifications. LYMPH NODES: Unremarkable. No cervical adenopathy. AUDITORY SYSTEM: Better seen soft tissue density filling much of the deep right external auditory canal and part of the right middle ear, presumably involving the tympanic membrane and other structures. Opacification of the rudimentary partially included mastoids. LUNG APICES: Unremarkable as visualized. Clear. CT/Spine Cervical without Contras IMPRESSION: 1. No acute posttraumatic abnormality. Multilevel degenerative changes. 2. Soft tissue mass or bulky mucosal thickening in the right middle ear-tympanic membrane region. Please correlate with evidence of cholesteatoma and consider follow-up. Electronically Signed: More Odonnell MD at 21:07 EST ,
--- NOTE | 2024-04-03 18:45 | CT_ITS ---
EXAM: CT HEAD WITHOUT INTRAVENOUS CONTRAST CLINICAL INDICATION: fall, head injury TECHNIQUE: Multiple axial images were obtained of the head without intravenous contrast. This CT exam was performed using one or more of the following dose reduction techniques: automated exposure control, adjustment of the mA and/or kV according to patient size, and/or use of iterative reconstruction technique. RADIATION DOSE: CTDIvol = 44.99 mGy, DLP = 863.60 mGy-cm. COMPARISON: Brain MRI report from January 16, 2020. FINDINGS: BRAIN AND EXTRA-AXIAL SPACES: Mild cerebral volume loss. No intra- or extra-axial hemorrhage. No evidence of acute infarct. No intracranial mass or mass effect. There is preservation of the alejo/white matter interface. Posterior fossa structures are unremarkable. Ventricles are appropriate for age. No hydrocephalus. Basal cisterns are patent. BONES/JOINTS: See below. SINUSES: Unremarkable as visualized. Clear. MASTOID AIR CELLS: Opacification of small right mastoid antrum and a few rudimentary underdeveloped right mastoid air cells. Right TMJ appears thickened. The ossicles appear intact on the right in the right middle ear is at least partially aerated. ORBITS: Visualized globes, extraocular muscles, optic nerves and retrobulbar fat appear unremarkable. CT/Brain/Head without Contrast IMPRESSION: 1. No specific acute abnormality. Mild chronic changes. 2. Suspicion of thickened right TMJ. Opacified right mastoid antrum. Please correlate with exam. Electronically Signed: More Odonnell MD at 20:50 EST ,
--- NOTE | 2024-04-03 18:45 | EX.ED.GENINJ ---
HPI History of Present Illness Chief Complaint: Trauma Detail of Chief Complaint: Fall with head injury Informant: patient Narrative Narrative: Patient presents the emergency department after a fall and head injury. Patient states that he was sitting on the toilet when he fell asleep and fell off the toilet striking his head on the base of the shower. He thinks he woke up right away does not think he lost consciousness. His aide was there and he called for help. He was unable to get up afterwards. He is not anticoagulated. He denies neck pain. [facility] Medical History Chronic lumbar radiculopathy Wears hearing aid History of steroid therapy Walker as ambulation aid Bladder disease Prostate disease Back pain Syncope History of CHF (congestive heart failure) History of heart attack Chest pain Renal insufficiency NSTEMI, initial episode of care Hypertensive urgency Elevated troponin Heart failure History of pulmonary embolism Easy bruising Non-smoker Neuropathy Hypertension Chronic serous otitis media of right ear Wears glasses Depression Thyroid disease High cholesterol Restless legs Gastric reflux History of hiatal hernia CPAP (continuous positive airway pressure) dependence Asthma COPD (chronic obstructive pulmonary disease) Shortness of breath on exertion History of edema History of echocardiogram History of stress test Cardiology follow-up encounter Dysphagia Anemia Presence of stent in coronary artery (~09/21/11) Rheumatoid arthritis Hyperlipidemia BPH (benign prostatic hyperplasia) History of kidney stones 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 RENALDO (obstructive sleep apnea) Nephrolithiasis Hiatal hernia Arthritis Essential (primary) hypertension Home Medications ?Medication ?Instructions ?Recorded ?Last Taken ?Type atorvastatin 40 mg tablet 40 mg PO QHS 12/18/12 08/30/23 History omeprazole 20 mg capsule,delayed 20 mg PO DAILY 12/18/12 08/31/23 History release albuterol sulfate 90 mcg/actuation 2 puff inhalation Q6H PRN Sob &/Or 07/07/17 08/30/23 History aerosol inhaler (ProAir HFA) Wheezing nitroglycerin 0.4 mg sublingual 0.4 mg sublingual Q5M PRN Chest 07/13/17 Unknown Rx tablet Pain #90 tabs levothyroxine 100 mcg tablet 100 mcg PO DAILY 05/30/18 08/31/23 History aspirin 81 mg tablet,delayed 81 mg PO DAILY 05/25/19 08/23/23 History release (Adult Low Dose Aspirin) fluticasone furoate 100 1 inh inhalation DAILY 05/05/20 08/31/23 History mcg-vilanterol 25 mcg/dose inhalation powder (Breo Ellipta) hydroxychloroquine 200 mg tablet 200 mg PO DAILY 11/05/21 08/30/23 History cyanocobalamin (vitamin B-12) 100 mcg IM QMONTH 05/13/22 05/05/23 History 1,000 mcg/mL injection kit ferrous sulfate 325 mg (65 mg 325 mg PO DAILY 05/13/22 08/30/23 History iron) tablet latanoprost 0.005 % eye drops 1 drp ophthalmic (eye) QPM 05/13/22 08/30/23 History pramipexole 1 mg tablet 3 mg PO QHS RLS 05/05/23 08/30/23 History Bilateral AFOs #2 ea 07/11/23 Unknown Rx carvedilol 25 mg tablet 25 mg PO BIDCM #180 tabs 08/31/23 Unknown Rx cholecalciferol (vitamin D3) 1,250 1,250 mcg PO QWEEK #4 caps 11/14/23 Unknown Rx mcg (50,000 unit) capsule gabapentin 400 mg capsule 400 mg PO TID #90 caps 11/14/23 Unknown Rx budesonide 0.5 mg/2 mL suspension mg inhalation BID 01/02/24 Unknown History for nebulization tezepelumab-ekko 210 mg/1.91 mL 210 mg subcut Q4W 01/02/24 Unknown History (110 mg/mL) subcutaneous pen injector (Tezspire) doxazosin 4 mg tablet 4 mg PO QDAY 03/01/24 Unknown History furosemide 40 mg tablet 40 mg PO QAM PRN edema #1 TAB 03/19/24 Unknown Rx Allergy/AdvReac Type Severity Reaction Status Date / Time Antihistamines - AdvReac Other Verified 04/03/24 18:32 Ethylenediamine Family History Father CAD (coronary artery disease) Mother CAD (coronary artery disease) Breast cancer Colon cancer Diabetes Brother CAD (coronary artery disease) CVA (cerebral vascular accident) Diabetes Surgical History History of transurethral resection of prostate Hx of total knee arthroplasty History of ear surgery History of cardiac catheterization History of back surgery Hx of right knee surgery History of esophagogastroduodenoscopy (EGD) Hx of bilateral cataract extraction Hx of colonoscopy History of cystoscopy Presence of coronary angioplasty implant and graft (~09/21/11) History of back surgery (~04/19/17) History of cholecystectomy History of total left knee replacement Hx of appendectomy History of total right knee replacement (TKR) (~03/17/16) Social History Smoking Status: Never smoker alcohol intake: never substance use type: does not use caffeine: Yes Type: carbonated beverages Number of servings: 1 what type of physical activity do you participate in: none seatbelt use: always do you feel safe at home: Yes ROS ROS ED ROS Narrative Head injury Review of Systems ROS Unobtainable: other Constitutional Constitutional ED: Reports lethargy; Denies chills, fever(s), sweats or weight loss Eyes Eyes: Denies blurry vision, change in vision or diplopia ENT ENT ED: Denies rhinorrhea or sore throat Cardiovascular Cardiovascular: Denies chest pain, orthopnea or racing heartbeat Respiratory/Chest Respiratory/Chest: Denies cough, dyspnea, dyspnea on exertion, orthopnea or sputum Gastrointestinal Gastrointestinal: Denies abdominal pain, diarrhea, nausea or vomiting Genitourinary Genitourinary ED: Denies dysuria, hematuria or urinary frequency Musculoskeletal Musculoskeletal: Denies arthralgias, back pain, myalgias or neck pain Integumentary Denies abscess, Abrasions or rash Neurologic Neurologic: Reports headache(s); Denies weakness Psychiatric Psychiatric: Denies anxiety, depression or suicidal thoughts Endocrine Endocrinology: Denies polydipsia, polyphagia or polyuria Hematologic/Lymphatic Hematologic/Lymphatic: Denies easy bleeding, easy bruising or lymphadenopathy Allergic/Immunologic Allergic/Immunologic ED: Denies mouth swelling, tongue swelling or urticaria EXAM Physical Exam Const Vital Signs: 04/03/24 18:32 04/03/24 20:31 Temperature 97.4 F L Temperature Source Oral Pulse Rate 66 71 Respiratory Rate 18 16 Blood Pressure 180/85 H Blood Pressure Mean 116 Pulse Ox 99 95 Oxygen Delivery Method Room Air Room Air Positive well nourished and well developed General Appearance ED: well developed and NAD HEENT Reports TM's clear and moist mucous membranes HEENT Narrative: Patient has a small hematoma with the superficial abrasion frontal scalp. Measuring approximately 3 cm in diameter. Evaluation of the posterior occiput reveals small superficial abrasion measuring less than a centimeter. No active bleeding. No significant lacerations. No bony step-offs or depressions. normocephalic and atraumatic; Negative for trauma or tenderness Tympanic Membrane ED: Yes TM's clear Eyes PERRL and EOMs intact bilaterally General Eye ED: Negative for pale conjunctiva or scleral icterus Neck no lymphadenopathy, supple and no JVD Neck Narrative: Mild diffuse tenderness. No bony step-offs or depressions. General: Negative for tenderness Chest Wall inspection of chest normal and palpation of chest normal Chest: Negative for tenderness Resp normal respiratory effort and clear to auscultation bilaterally Effort and Inspection: Negative for respiratory distress or pain with movement Auscultation: Negative for rhonchi, wheezes or diminished lung sounds Cardio regular rate, regular rhythm, S1 normal heart sound, S2 normal heart sound and no murmurs Peripheral Pulses: pulses 2+ throughout GI normal to inspection, nondistended, normoactive bowel sounds, soft to palpation, non-tender, non-distended and no masses Back/Spine no CVA tenderness and no thoracic nor lumbar tenderness Extremity normal to inspection General Extremety ED: Negative for edema General Extremity: Negative for edema Neuro oriented x3, CN's II-XII intact bilaterally, no sensory deficits noted and gait normal Sensorium / Orientation: awake, alert, oriented to person, oriented to place and oriented to time Motor Exam: strength 5/5 throughout and strength abnormal Psych mental status grossly normal Skin no rashes or lesions noted and no wounds MDM MDM MDM Narrative Medical decision making narrative: Patient presents with head injury after a fall from toilet. CT scan of the brain without contrast obtained showed no intracranial hemorrhage or skull fracture. Patient also had a CT scan of the cervical spine that showed degenerative changes without evidence of fracture or dislocation. Patient was given a tetanus booster. He will be discharged to home and advised to follow-up with primary care physician 3 to 5 days. Patient was noted to have some thickening of the right eardrum. He also had some opacity of the right mastoid. Patient was advised of this and he states that he has a ear infection that he is currently being treated with drops and he is seeing ENT tomorrow. Discharge Plan Triage Chief Complaint: Trauma ED Provider: Maureen Emerson Dx/Rx/DC Orders Clinical Impression: Fall, Closed head injury Instructions: ED Mechanical Fall, ED Head Injury (Adult) Prescriptions: No Action nitroglycerin 0.4 mg tablet, sublingual 0.4 mg SUBLINGUAL Q5M PRN (Reason: Chest Pain) Qty: 90 6RF albuterol sulfate [ProAir HFA] 90 mcg/actuation HFA aerosol inhaler 2 puff INHALATION Q6H PRN (Reason: Sob &/Or Wheezing) levothyroxine 100 mcg tablet 100 mcg PO DAILY aspirin [Adult Low Dose Aspirin] 81 mg tablet,delayed release (DR/EC) 81 mg PO DAILY Breo Ellipta 100-25 mcg/dose blister with device 1 inh INHALATION DAILY hydroxychloroquine 200 mg tablet 200 mg PO DAILY ferrous sulfate 325 mg (65 mg iron) tablet 325 mg PO DAILY cyanocobalamin (vitamin B-12) 1,000 mcg/mL kit 100 mcg IM QMONTH latanoprost 0.005 % drops 1 drp ophthalmic (eye) QPM (DME) Bilateral AFOs See Rx Instructions .Route .MEDSUPPLY Qty: 2 0RF Rx Instructions: As directed for bilateral foot drop, polyneuropathy and chronic lumbar radiculopathy. gabapentin 400 mg capsule 400 mg PO TID Qty: 90 5RF cholecalciferol (vitamin D3) 1,250 mcg (50,000 unit) capsule 1,250 mcg PO QWEEK Qty: 4 5RF budesonide 0.5 mg/2 mL suspension for nebulization inhalation BID Tezspire 210 mg/1.91 mL (110 mg/mL) pen injector 210 mg subcut Q4W doxazosin 4 mg tablet 4 mg PO QDAY furosemide 40 mg tablet 40 mg PO QAM PRN (Reason: edema) Qty: 1 0RF atorvastatin 40 MG tablet 40 mg PO QHS Patient Comments: cholesterol omeprazole 20 MG capsule 20 mg PO DAILY Patient Comments: acid reflux pramipexole 1 mg tablet 3 mg PO QHS carvedilol 25 mg tablet 25 mg PO BIDCM Qty: 180 3RF Primary Care Provider: Waqar Wright Referrals: Waqar Wright DO [Primary Care Provider] - 3-5 Days Print Language: Thai Disposition Disposition: Home, Self Care
[2024-04-03 20:31] VITALS: PULSE 71; RESP 16; O2SAT 95
[2024-04-03] MEDS: Diphth,Pertuss(Acell),Tet Vac 0.5 ML Vial IM (21:17)
[2024-04-03 21:19] VITALS: BP 158/83; PULSE 68; RESP 18; TEMP 36.6; O2SAT 98
== END 2024-04-03 21:32 | disposition home or self-care (01) ==
PROVIDERS: Emergency Provider Emergency Medicine; PCP Family Medicine; Visit Provider Emergency Medicine
DX: S09.90XA Unspecified injury of head, initial encounter (principal); I11.0 Hypertensive heart disease with heart failure; I50.9 Heart failure, unspecified; J44.9 Chronic obstructive pulmonary disease, unspecified; I25.10 Atherosclerotic heart disease of native coronary artery without angina pectoris; I25.2 Old myocardial infarction; G47.33 Obstructive sleep apnea (adult) (pediatric); Z23 Encounter for immunization; W18.11XA Fall from or off toilet without subsequent striking against object, initial encounter; Z95.5 Presence of coronary angioplasty implant and graft
CPT/HCPCS: 70450; 72125; 90471; 90715; 99284

== ENCOUNTER → 2024-04-12 | Outpatient (CLI) | payer MEDICARE, SELFPAY ==
[2024-04-12 15:37] LABS: Albumin, Serum 3.9 g/dL (3.2-5.0); BUN 26 mg/dL (7-18); BUN/Creat Ratio 15.6 RATIO (10-20); Calcium,Total 9.3 mg/dL (8.5-10.1); Chloride 109 mmol/L (98-107); Creatinine, Serum 1.67 mg/dL (0.70-1.30); EST Glomerular Filtration Rate 42 mL/min (>60); Est Glom Filt Rate - Afr Amer 51 mL/min (>60); Glucose 131 mg/dL (74-106); Phosphorus 3.4 mg/dL (2.5-4.9); Potassium 4.4 mmol/L (3.5-5.1); Sodium Level 140 mmol/L (136-145)
== END | disposition home or self-care (01) ==
LOC: MTLAB 12:52
PROVIDERS: PCP Family Medicine; Referring Provider Internal Medicine Nephrology; Visit Provider Internal Medicine Nephrology
DX: N18.31 Chronic kidney disease, stage 3a (principal)
CPT/HCPCS: 36415; 80069

== ENCOUNTER 2024-05-09 09:50 | Emergency (ER) | payer MEDICARE, SELFPAY ==
[2024-05-09] VITALS (7 sets, daily range): BP systolic 130–150; BP diastolic 65–78; PULSE 65–95; RESP 16–18; TEMP 36.6–36.9; O2SAT 93–98; BMI 35.2
--- NOTE | 2024-05-09 10:40 | CT_ITS ---
EXAM: CT scan of the head without intravenous contrast administration. TECHNIQUE: Helical imaging of CT head was performed without IV contrast. One or more of the following dose reduction techniques were used: automated exposure control, adjustment of the mA and/or kV according to patient size, use of iterative reconstruction technique. FINDINGS: BRAIN PARENCHYMA: No evidence for acute hemorrhage or large territory infarct. EXTRA-AXIAL SPACES: No acute extra-axial fluid collection identified. Basal cisterns are patent. MIDLINE SHIFT: None. VENTRICLES: No evidence of hydrocephalus. SCALP SOFT TISSUES: No significant abnormality. CALVARIUM: No acute process. VISUALIZED PARANASAL SINUSES: No air-fluid levels. MASTOID AIR CELLS: Grossly clear. CT/Brain/Head without Contrast IMPRESSION: No evidence of acute intracranial abnormality. CLINICAL HISTORY: Head injury due to syncopal episode. COMPARISON: Comparison is made with prior study dated April 03, 2024. TECHNIQUE: Helical imaging of CT head was performed without IV contrast. One or more of the following dose reduction techniques were used: automated exp osure control, adjustment of the mA and/or kV according to patient size, use of iterative reconstruction technique. FINDINGS: BRAIN PARENCHYMA: No evidence for acute hemorrhage or large territory infarct. Stable cerebral atrophy. No acute abnormality is seen. EXTRA-AXIAL SPACES: No acute extra-axial fluid collection identified. Basal ci sterns are patent. MIDLINE SHIFT: None. VENTRICLES: No evidence of hydrocephalus. SCALP SOFT TISSUES: No significant abnormality. CALVARIUM: No acute process. VISUALIZED PARANASAL SINUSES: No air-fluid levels. MASTOID AIR CELLS: Grossly clear. IMPRESSION: Cerebral atrophy. No acute abnormality is seen. Reading Location: [place] [id number]
--- NOTE | 2024-05-09 10:47 | EX.ED.DYSGE1 ---
HPI History of Present Illness Chief Complaint: Fall Informant: patient Narrative Narrative: Patient is a 78-year-old male with history of rheumatoid arthritis, chronic lumbar radiculopathy with chronic sciatica/leg pain, diabetes mellitus, renal insufficiency, hypertension, debility, RENALDO and polyneuropathy presenting for evaluation after fall. Patient lives home alone. He does have aides that are there for 12 hours a day. He uses a walker to ambulate. He states that he slid out of bed and landed on the ground. He was unable to get himself up. This occurred around 2 AM. He hit his head multiple times on a bedside table trying to get himself up and then falling again. He states it is the back of his head. He had no loss of conscious. He is not any blood thinners. Aide came in this morning and found him on the ground, EMS was called he was brought to the emergency room. Patient does feel that his left leg has been getting weaker for the past 3 weeks. He notes he has associated back pain/sciatica with it. He states his left leg is his good leg which is made his weakness and ambulation even work. Denies any new shortness of breath but states he has breathing problems. Does not wear home oxygen. Denies any swelling of his legs. States he did try physical therapy in the past with no relief. He does not want to go to assisted living at this time would prefer to go home if possible. He notes that he sometimes will take hydrocodone for his pain but only uses about once a week. He otherwise would just use Tylenol or ibuprofen. Denies any recent fever, chills, urinary symptoms, abdominal pain, nausea, vomiting, vision changes or flulike symptoms. No other complaints or concerns at this time. [facility] Medical History Chronic lumbar radiculopathy Wears hearing aid History of steroid therapy Walker as ambulation aid Bladder disease Prostate disease Back pain Syncope History of CHF (congestive heart failure) History of heart attack Chest pain Renal insufficiency NSTEMI, initial episode of care Hypertensive urgency Elevated troponin Heart failure History of pulmonary embolism Easy bruising Non-smoker Neuropathy Hypertension Chronic serous otitis media of right ear Wears glasses Depression Thyroid disease High cholesterol Restless legs Gastric reflux History of hiatal hernia CPAP (continuous positive airway pressure) dependence Asthma COPD (chronic obstructive pulmonary disease) Shortness of breath on exertion History of edema History of echocardiogram History of stress test Cardiology follow-up encounter Dysphagia Anemia Presence of stent in coronary artery (~09/21/11) Rheumatoid arthritis Hyperlipidemia BPH (benign prostatic hyperplasia) History of kidney stones Atherosclerosis of [place] coronary artery of [place] heart without angina pectoris RENALDO (obstructive sleep apnea) Nephrolithiasis Hiatal hernia Arthritis Essential (primary) hypertension Home Medications ?Medication ?Instructions ?Recorded ?Last Taken ?Type atorvastatin 40 mg tablet 40 mg PO QHS 12/18/12 08/30/23 History omeprazole 20 mg capsule,delayed 20 mg PO DAILY 12/18/12 08/31/23 History release albuterol sulfate 90 mcg/actuation 2 puff inhalation Q6H PRN Sob &/Or 07/07/17 08/30/23 History aerosol inhaler (ProAir HFA) Wheezing nitroglycerin 0.4 mg sublingual 0.4 mg sublingual Q5M PRN Chest 07/13/17 Unknown Rx tablet Pain #90 tabs levothyroxine 100 mcg tablet 100 mcg PO DAILY 05/30/18 08/31/23 History aspirin 81 mg tablet,delayed 81 mg PO DAILY 05/25/19 08/23/23 History release (Adult Low Dose Aspirin) fluticasone furoate 100 1 inh inhalation DAILY 05/05/20 08/31/23 History mcg-vilanterol 25 mcg/dose inhalation powder (Breo Ellipta) hydroxychloroquine 200 mg tablet 200 mg PO DAILY 11/05/21 08/30/23 History cyanocobalamin (vitamin B-12) 100 mcg IM QMONTH 05/13/22 05/05/23 History 1,000 mcg/mL injection kit ferrous sulfate 325 mg (65 mg 325 mg PO DAILY 05/13/22 08/30/23 History iron) tablet latanoprost 0.005 % eye drops 1 drp ophthalmic (eye) QPM 05/13/22 08/30/23 History pramipexole 1 mg tablet 3 mg PO QHS RLS 05/05/23 08/30/23 History Bilateral AFOs #2 ea 07/11/23 Unknown Rx carvedilol 25 mg tablet 25 mg PO BIDCM #180 tabs 08/31/23 Unknown Rx cholecalciferol (vitamin D3) 1,250 1,250 mcg PO QWEEK #4 caps 11/14/23 Unknown Rx mcg (50,000 unit) capsule gabapentin 400 mg capsule 400 mg PO TID #90 caps 11/14/23 Unknown Rx budesonide 0.5 mg/2 mL suspension 0.25 mg inhalation BID 01/02/24 Unknown History for nebulization tezepelumab-ekko 210 mg/1.91 mL 210 mg subcut Q4W 01/02/24 Unknown History (110 mg/mL) subcutaneous pen injector (Tezspire) doxazosin 4 mg tablet 6 mg PO QDAY 03/01/24 Unknown History furosemide 20 mg tablet 20 mg PO QAM PRN edema #30 tabs 05/04/24 Unknown Rx Allergy/AdvReac Type Severity Reaction Status Date / Time Antihistamines - AdvReac Other Verified 05/09/24 09:56 Ethylenediamine Family History Father CAD (coronary artery disease) Mother CAD (coronary artery disease) Breast cancer Colon cancer Diabetes Brother CAD (coronary artery disease) CVA (cerebral vascular accident) Diabetes Surgical History History of transurethral resection of prostate Hx of total knee arthroplasty History of ear surgery History of cardiac catheterization History of back surgery Hx of right knee surgery History of esophagogastroduodenoscopy (EGD) Hx of bilateral cataract extraction Hx of colonoscopy History of cystoscopy Presence of coronary angioplasty implant and graft (~09/21/11) History of back surgery (~04/19/17) History of cholecystectomy History of total left knee replacement Hx of appendectomy History of total right knee replacement (TKR) (~03/17/16) Social History Smoking Status: Never smoker alcohol intake: never substance use type: does not use caffeine: Yes Type: carbonated beverages Number of servings: 1 what type of physical activity do you participate in: none seatbelt use: always do you feel safe at home: Yes ROS ROS ED Constitutional Constitutional ED: Denies chills or fever(s) Eyes Eyes: Denies change in vision ENT ENT ED: Denies rhinorrhea or sore throat Cardiovascular Cardiovascular: Denies chest pain or palpitations Respiratory/Chest Respiratory/Chest: Reports cough and dyspnea Gastrointestinal Gastrointestinal: Denies abdominal pain, nausea or vomiting Genitourinary Genitourinary ED: Denies dysuria, hematuria or urinary frequency Musculoskeletal Musculoskeletal: Reports back pain and myalgias Integumentary Denies rash Neurologic Neurologic: Reports paresthesias, weakness and other Details: Chronic neuropathy/paresthesias of the lower legs bilaterally. Diffuse weakness progressing over the past few weeks. ; Denies headache(s) Hematologic/Lymphatic Hematologic/Lymphatic: Denies easy bleeding or easy bruising EXAM Physical Exam Const Vital Signs: 05/09/24 09:53 05/09/24 11:36 05/09/24 11:57 Temperature 97.9 F Temperature Source Oral Pulse Rate 95 Respiratory Rate 16 18 Respiratory Effort Normal Non-Labored Respiratory Depth Normal Respiratory Pattern Normal Blood Pressure 150/78 H 138/65 H Blood Pressure Mean 102 89 Pulse Ox 98 96 Oxygen Delivery Method Room Air Room Air 05/09/24 13:00 05/09/24 13:38 05/09/24 14:58 Temperature Temperature Source Pulse Rate 75 79 78 Respiratory Rate 18 16 18 Respiratory Effort Respiratory Depth Respiratory Pattern Normal Blood Pressure 130/67 H 131/67 H Blood Pressure Mean 88 88 Pulse Ox 93 98 Oxygen Delivery Method Room Air Room Air Positive well nourished and well developed Constitutional Narrative: Patient appears to be in no acute distress. General Appearance ED: well developed Eyes PERRL Neck supple and no JVD Chest Wall inspection of chest normal Resp Resp Narrative: Mild increased work of breathing. Scattered and expiratory wheeze noted in the left upper lung field. No crackles appreciated. Cardio regular rate, regular rhythm and no murmurs GI normal to inspection, nondistended, normoactive bowel sounds and non-tender Extremity normal to inspection Extremity Narrative: Mild tenderness with range of motion of the right hip. Negative straight leg test on the left. Patient does not tolerate straight leg test on the right secondary to his hip pain. States his hip pain feels different than sciatica. General Extremety ED: Negative for edema General Extremity: Negative for edema Neuro oriented x3 Neuro Narrative: Patient is generally weak and has a hard time even sitting up in bed without a two-person assist. Sensorium / Orientation: alert Motor Exam: general weakness Skin no rashes or lesions noted and no wounds MDM MDM MDM Narrative Medical decision making narrative: Patient is evaluated after falling out of bed last night. He did hit his head. This mechanism seems low but will obtain CT of the brain to rule out intracranial process. In addition he has had progressive worsening of this leg weakness as well as generalized weakness over the past few weeks. Will obtain cardiopulmonary workup as well as infectious workup due to the progression of symptoms as well. Patient's workup is positive for COVID-19 but otherwise largely normal. Creatinine is elevated at 1.80 but this is his baseline. No signs of rhabdomyolysis. Traumatic injury noted on CT of the brain. X-ray viewed by myself as well as radiology does not show any acute hip fracture. Chest x-rays not show any acute infiltrate. Patient is quite weak with ambulation but does not desaturate. Patient was offered admission given his profound weakness and debility but is quite insistent that he wants to stay at home with his. Son is at the bedside states they have been trying to reach out to hospice/palliative care but they have not received it yet. Will place a consult for hospice from the ER. Information and consult was faxed over for them. They will contact the patient and go to his house. Patient is encouraged to return the emergency room should he feel that he is no longer safe at home. He does have an aide 12 hours a day however and accompanies coming out over the next few days to set up for a life alert. Lab Data Attestation: I reviewed the patient's lab results. Labs: Laboratory Results - last 24 hr 05/09/24 11:55 WBC 8.4 RBC 4.28 L Hgb 14.2 Hct 42.5 MCV 99.3 H MCH 33.2 H MCHC 33.4 RDW Std Deviation 51.3 H RDW Coeff of [place] 14.1 Plt Count 161 MPV 9.5 Immature Gran % (Auto) 0.400 Neut % (Auto) 84.1 H Lymph % (Auto) 7.3 L [place] % (Auto) 7.6 Eos % (Auto) 0.1 Baso % (Auto) 0.5 Absolute Neuts (auto) 7.1 Absolute Lymphs (auto) 0.61 L Nucleated RBC % 0 Sodium 141 Potassium 3.2 L Chloride 108 H Carbon Dioxide 25.0 Anion Gap 8 BUN 21 H Creatinine 1.80 H Estim Creat Clear Calc 38.48 Est GFR (MDRD) Af Amer 47 L Est GFR (MDRD) Non-Af 39 L BUN/Creatinine Ratio 11.7 Glucose 123 H Calcium 9.0 Total Creatine Kinase 222 ABG Data ABG results: ABG 05/09/24 14:05 Specimen Type ERIKA Sample Site Not entered VBG pH 7.49 H VBG pO2 185 H VBG HCO3 19 L VBG Total CO2 20 L VBG O2 Sat (Calc) 100 H VBG Base Excess -4 L POC Mix VBG pCO2 Pt Tmp 25.2 L O2 Delivery Device Room Air Radiography Chest X-Ray - ED: Read by ED Physician, Read by Radiologist and No Acute Disease Diagnostic Testing: Clinical Impression(s) from Imaging Studies Brain CT 05/09/24 10:40 IMPRESSION: No evidence of acute intracranial abnormality. CLINICAL HISTORY: Head injury due to syncopal episode. COMPARISON: Comparison is made with prior study dated April 03, 2024. TECHNIQUE: Helical imaging of CT head was performed without IV contrast. One or more of the following dose reduction techniques were used: automated exposure control, adjustment of the mA and/or kV according to patient size, use of iterative reconstruction technique. FINDINGS: BRAIN PARENCHYMA: No evidence for acute hemorrhage or large territory infarct. Stable cerebral atrophy. No acute abnormality is seen. EXTRA-AXIAL SPACES: No acute extra-axial fluid collection identified. Basal cisterns are patent. MIDLINE SHIFT: None. VENTRICLES: No evidence of hydrocephalus. SCALP SOFT TISSUES: No significant abnormality. CALVARIUM: No acute process. VISUALIZED PARANASAL SINUSES: No air-fluid levels. MASTOID AIR CELLS: Grossly clear. IMPRESSION: Cerebral atrophy. No acute abnormality is seen. [facility] Chest X-Ray 05/09/24 11:05 IMPRESSION: No active cardiopulmonary disease. Large stationary hiatal hernia. Reading Location: [facility] Hip/Pelvis X-Ray 05/09/24 11:05 IMPRESSION: No acute fracture seen. Reading Location: [facility] Rhythm Strip Rhythm Strip: Sinus Rhythm Rate: 88 Ectopy: None EKG Initial EKG: Attestation: I personally reviewed and interpreted this EKG as follows: Interpretation: Sinus Rhythm Comments: Normal sinus rhythm at a rate of 88 bpm with first-degree AV block OR interval 228 Normal axis Normal intervals with left anterior fascicular block Normal ST segments Prior EKG tracings: available for review Prior: Unchanged Management Discussion w/another healthcare provider: bilingual social worker/Case management Discharge Plan Triage Chief Complaint: Fall ED Provider: Shereen Monahan Dx/Rx/DC Orders Clinical Impression: COVID, Generalized weakness, Debility, Closed head injury Instructions: Coronavirus Disease 2019 (COVID-19): Overview, ED Mechanical Fall Prescriptions: No Action nitroglycerin 0.4 mg tablet, sublingual 0.4 mg SUBLINGUAL Q5M PRN (Reason: Chest Pain) Qty: 90 6RF albuterol sulfate [ProAir HFA] 90 mcg/actuation HFA aerosol inhaler 2 puff INHALATION Q6H PRN (Reason: Sob &/Or Wheezing) levothyroxine 100 mcg tablet 100 mcg PO DAILY aspirin [Adult Low Dose Aspirin] 81 mg tablet,delayed release (DR/EC) 81 mg PO DAILY Breo Ellipta 100-25 mcg/dose blister with device 1 inh INHALATION DAILY hydroxychloroquine 200 mg tablet 200 mg PO DAILY ferrous sulfate 325 mg (65 mg iron) tablet 325 mg PO DAILY cyanocobalamin (vitamin B-12) 1,000 mcg/mL kit 100 mcg IM QMONTH latanoprost 0.005 % drops 1 drp ophthalmic (eye) QPM (DME) Bilateral AFOs See Rx Instructions .Route .MEDSUPPLY Qty: 2 0RF Rx Instructions: As directed for bilateral foot drop, polyneuropathy and chronic lumbar radiculopathy. gabapentin 400 mg capsule 400 mg PO TID Qty: 90 5RF cholecalciferol (vitamin D3) 1,250 mcg (50,000 unit) capsule 1,250 mcg PO QWEEK Qty: 4 5RF budesonide 0.5 mg/2 mL suspension for nebulization 0.25 mg inhalation BID Tezspire 210 mg/1.91 mL (110 mg/mL) pen injector 210 mg subcut Q4W doxazosin 4 mg tablet 6 mg PO QDAY atorvastatin 40 MG tablet 40 mg PO QHS Patient Comments: cholesterol omeprazole 20 MG capsule 20 mg PO DAILY Patient Comments: acid reflux pramipexole 1 mg tablet 3 mg PO QHS carvedilol 25 mg tablet 25 mg PO BIDCM Qty: 180 3RF furosemide 20 mg tablet 20 mg PO QAM PRN (Reason: edema) Qty: 30 11RF Primary Care Provider: Waqar Wright Referrals: Waqar Wright, [Primary Care Provider] - Activity Restrictions/Additional Instructions: You did test positive for COVID-19 today. It is not clear with your symptoms started but this could be causing increase of your chronic weakness. Your oxygen did not drop with any type of ambulation or movement today. Consult for palliative/hospice medicine has been placed today. They should contact you. If it anytime you do not feel safe at home or have further symptoms/concerns please do not hesitate to return to the emergency room. Print Language: Pakistani Disposition Disposition: Home, Self Care
--- NOTE | 2024-05-09 11:05 | RAD_ITS ---
PROCEDURE: CHEST PA AND LATERAL REASON FOR EXAM: Patient fell. Altered mental status. TECHNIQUE: Frontal and lateral views of the chest. COMPARISON: None. FINDINGS: The heart size is normal. The mediastinal contour is unremarkable. The lungs are clear. The bones are unremarkable. Large stationary hiatal hernia. Cardiac monitoring leads overlie the chest wall. RAD/Chest PA and Lateral IMPRESSION: No active cardiopulmonary disease. Large stationary hiatal hernia. Reading Location: [facility]
--- NOTE | 2024-05-09 11:05 | RAD_ITS ---
PROCEDURE: HIP, UNI W/ PELVIS 2-3 VIEWS REASON FOR EXAM: Right hip pain due to a recent fall. TECHNIQUE: Three views were obtained. COMPARISON: Comparison is made with prior study dated February 01, 2024. FINDINGS: No fracture. No suspicious bone lesion. Mild degree of joint space narrowing. Normal alignment. Soft tissues are unremarkable. Prior laminectomy and fusion of the lower lumbar spine. Degenerative changes of the sacroiliac joints. RAD/HIP, UNI W/ Pelvis 2-3 Views IMPRESSION: No acute fracture seen. Reading Location: [place] [id number]
[2024-05-09] MEDS: Acetaminophen 325 MG Tablet 650 MG PO (11:30)
[2024-05-09 12:19] LABS: Absolute Lymphocyte Count 0.61 X10^3/uL (0.83-4.51); Absolute Neutrophil Count 7.1 X10^3/uL (2.0-7.7); Basophil# 0.04 X10^3/uL; Basophil% 0.5 % (0-1); Eosinophil# 0.01 X10^3/uL; Eosinophils% 0.1 % (0-5); Hematocrit 42.5 % (40-54); Hemoglobin 14.2 g/dL (13.0-16.5); Lymphocyte # 0.61 X10^3/ul (0.83-4.51); Lymphocyte % 7.3 % (19-41); Mean Corp Hgb Conc 33.4 g/dL (32-36); Mean Corpuscular Hgb 33.2 pg (27.0-32.0); Mean Corpuscular Volume 99.3 fL (80-94); Mean Platelet Vol. 9.5 fl (6.2-12.0); Monocyte# 0.64 X10^3/uL; Monocyte% 7.6 % (0-10); NRBC Flagged by Analyzer 0 % (0-5); Neutrophil # 7.08 X10^3/uL (2.7-7.7); Neutrophil % 84.1 % (47-70); Platelet Count 161 K/mm3 (150-450); RBC Distribution Width CV 14.1 % (11.6-14.6); RBC Distribution Width SD 51.3 fl (35.1-43.9); Red Blood Count 4.28 M/mm3 (4.6-6.2); White Blood Count 8.4 K/mm3 (4.4-11.0)
[2024-05-09 12:29] LABS: Anion Gap 8 (5-15); BUN 21 mg/dL (7-18); BUN/Creat Ratio 11.7 RATIO (10-20); CPK Total, Creatine Kinase 222 U/L (39-308); Chloride 108 mmol/L (98-107); EST Glomerular Filtration Rate 39 mL/min (>60); Est Glom Filt Rate - Afr Amer 47 mL/min (>60); Estimated Creatinine Clearance 38.48 ml/min; Glucose 123 mg/dL (74-106); Potassium 3.2 mmol/L (3.5-5.1); Sodium Level 141 mmol/L (136-145)
[2024-05-09] MEDS: Ipratropium/Albuterol Sulfate 3 ML AMPUL.NEB INHALATION (13:38)
[2024-05-09 14:09] LABS: Blood Gas Specimen Type VEN; O2 Delivery Device Room Air; SITE Not entered; VBG BASE EXCESS -4 mmol/L (-1.0-3.5); VBG Bicarbonate 19 mmol/L (22-26); VBG PO2 185 mmHg (25-40); VBG SO2 100 % (50-70); VBG TCO2 20 mmol/L (23-33); VBG pCO2 25.2 mmHg (41-51); VBG pH 7.49 (7.32-7.42)
--- NOTE | 2024-05-09 20:15 | CM.ED ---
Social Work SW met with patient and son regarding assistance patient was receiving at home. Son told SW that patient currently has 12 hours of home care per day, that his only concern was that he did not have care during the evening hours. SW offered a certified medication aide list, son declined stating he had contacts already. Son also stated that he was trying to keep patient at home for as long as he can, but that when needed patient would be coming to live with him. Son told SW that he had also reached out for palliative care and was waiting on return phone call. SW provided emotional support and validation. No further needs identified at this time. Nicole Dotson, CLERICAL CLERK, SENIOR TECHNOLOGIST
[2024-05-10 15:26] LABS: BNP,B-Type NATRIURETIC PEPTIDE 45.2 pg/mL (0-100)
== END 2024-05-09 16:03 | disposition home or self-care (01) ==
PROVIDERS: Emergency Provider Emergency Medicine; PCP Family Medicine; Visit Provider Emergency Medicine
DX: U07.1 COVID-19 (principal); I11.0 Hypertensive heart disease with heart failure; I50.9 Heart failure, unspecified; J44.9 Chronic obstructive pulmonary disease, unspecified; E11.42 Type 2 diabetes mellitus with diabetic polyneuropathy; I25.10 Atherosclerotic heart disease of native coronary artery without angina pectoris; E78.00 Pure hypercholesterolemia, unspecified; S09.90XA Unspecified injury of head, initial encounter; R53.81 Other malaise; I25.2 Old myocardial infarction; G47.33 Obstructive sleep apnea (adult) (pediatric); Z79.82 Long term (current) use of aspirin; Z79.899 Other long term (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; W06.XXXA Fall from bed, initial encounter; Z95.5 Presence of coronary angioplasty implant and graft
CPT/HCPCS: 99285; 70450; 71046; 73502; 80048; 82550; 82803; 83880; 85025; 87631; 93005; 94640; A4216

== ENCOUNTER 2024-05-10 10:24 | Inpatient (IN) | payer MEDICARE, SELFPAY ==
[2024-05-10] VITALS (9 sets, daily range): BP systolic 123–171; BP diastolic 67–132; PULSE 63–88; RESP 13–28; TEMP 36.3–37.2; O2SAT 89–100; BMI 32.5; BMI 30.4
--- NOTE | 2024-05-10 10:52 | EKG12_ITS ---
Test Reason : SOB Blood Pressure : */* mmHG Vent. Rate : 88 BPM Atrial Rate : 88 BPM P-R Int : 226 ms QRS Dur : 100 ms QT Int : 360 ms P-R-T Axes : 64 -52 49 degrees QTcB Int : 435 ms Sinus rhythm with 1st degree A-V block Left anterior fascicular block Abnormal ECG Confirmed by GONZÁLEZ MELENDEZ ([id number]), supervising editor trailer TORRES PLATA ([id number]) on 05/14/2024 7:12:18 AM Referred By: Confirmed By: GONZÁLEZ MELENDEZ
--- NOTE | 2024-05-10 10:54 | ED.VIS.DYS ---
HPI History of Present Illness Chief Complaint: Shortness of Breath Informant: patient and family Narrative Narrative: Patient is an 86-year-old male presenting for worsening shortness of breath, confusion and generalized weakness. Patient was actually seen by myself yesterday for a fall where he slid out of bed. At that time patient was quite weak and was found to be positive for COVID. He had no symptoms associated with this. Time of onset of infection was not known and he was not treated with antiviral. He was offered admission for his weakness and debility but felt that it was at his baseline and elected to go home with home health and for a palliative consult. A palliative referral was placed yesterday. Son at the bedside states that she had a good night last night. He slept through the night and ate dinner. This morning the aide was there and was concerned that he was more confused and was working harder to breathe. No new falls reported. He was brought back to the emergency room because of his acute respiratory symptoms. Patient is complaining of a sore throat. He is having increased pain of his lower extremities (has chronic lumbar radiculopathy but is worse as far as the pain today). Is not had his morning medications. Does not wear home O2. [facility] Medical History (Updated 05/10/24 @ 21:[address] Shereen Monahan, ) Kidney disease BiPAP (biphasic positive airway pressure) dependence Sleep apnea Pulmonary embolism Congestive heart failure (CHF) Myocardial infarct Wears hearing aid History of steroid therapy Walker as ambulation aid Bladder disease Prostate disease Back pain Syncope History of CHF (congestive heart failure) History of heart attack Chest pain Chronic lumbar radiculopathy Renal insufficiency NSTEMI, initial episode of care Hypertensive urgency Elevated troponin Heart failure History of pulmonary embolism Easy bruising Non-smoker Neuropathy Hypertension Chronic serous otitis media of right ear Wears glasses Depression Thyroid disease High cholesterol Restless legs Gastric reflux History of hiatal hernia CPAP (continuous positive airway pressure) dependence Asthma COPD (chronic obstructive pulmonary disease) Shortness of breath on exertion History of edema History of echocardiogram History of stress test Cardiology follow-up encounter Dysphagia Anemia Presence of stent in coronary artery (~09/21/11) Rheumatoid arthritis Hyperlipidemia BPH (benign prostatic hyperplasia) History of kidney stones Atherosclerosis of [place] coronary artery of [place] heart without angina pectoris RENALDO (obstructive sleep apnea) Nephrolithiasis Hiatal hernia Arthritis Essential (primary) hypertension Home Medications ?Medication ?Instructions ?Recorded ?Last Taken ?Type atorvastatin 40 mg tablet 40 mg PO QHS 12/18/12 05/09/24 History omeprazole 20 mg capsule,delayed 20 mg PO DAILY 12/18/12 05/08/24 History release nitroglycerin 0.4 mg sublingual 0.4 mg sublingual Q5M PRN Chest 07/13/17 05/08/24 Rx tablet Pain #90 tabs levothyroxine 100 mcg tablet 100 mcg PO DAILY 05/30/18 05/08/24 History aspirin 81 mg tablet,delayed 81 mg PO DAILY 05/25/19 05/08/24 History release (Adult Low Dose Aspirin) fluticasone furoate 100 1 inh inhalation DAILY 05/05/20 05/08/24 History mcg-vilanterol 25 mcg/dose inhalation powder (Breo Ellipta) hydroxychloroquine 200 mg tablet 200 mg PO DAILY 11/05/21 05/08/24 History cyanocobalamin (vitamin B-12) 100 mcg IM QMONTH 05/13/22 05/04/24 History 1,000 mcg/mL injection kit ferrous sulfate 325 mg (65 mg 325 mg PO DAILY 05/13/22 05/08/24 History iron) tablet latanoprost 0.005 % eye drops 1 drp ophthalmic (eye) QPM 05/13/22 05/09/24 History pramipexole 1 mg tablet 3 mg PO QHS RLS 05/05/23 05/09/24 History Bilateral AFOs #2 ea 07/11/23 Unknown Rx carvedilol 25 mg tablet 25 mg PO BIDCM #180 tabs 08/31/23 05/09/24 Rx cholecalciferol (vitamin D3) 1,250 1,250 mcg PO QWEEK #4 caps 11/14/23 05/02/24 Rx mcg (50,000 unit) capsule gabapentin 400 mg capsule 400 mg PO TID #90 caps 11/14/23 05/08/24 Rx budesonide 0.5 mg/2 mL suspension 0.25 mg inhalation BID 01/02/24 05/09/24 History for nebulization tezepelumab-ekko 210 mg/1.91 mL 210 mg subcut Q4W 01/02/24 05/08/24 History (110 mg/mL) subcutaneous pen injector (Tezspire) doxazosin 4 mg tablet 6 mg PO QDAY 03/01/24 05/08/24 History albuterol sulfate 90 mcg/actuation 2 inh inhalation Q6H PRN wheezing 05/10/24 Unknown History aerosol inhaler doxazosin 2 mg tablet 2 mg PO QHS 05/10/24 05/09/24 History furosemide 20 mg tablet 20 mg PO QAM edema 05/10/24 05/08/24 History hydrocodone-acetaminophen 5-325mg 1 tab PO BID PRN pain 05/10/24 05/09/24 History 5mg-325mg linaclotide 72 mcg capsule 72 mcg PO DAILY 05/10/24 05/08/24 History (Linzess) mirabegron 25 mg tablet,extended 25 mg PO DAILY 05/10/24 05/08/24 History release 24 hr (Myrbetriq) Allergy/AdvReac Type Severity Reaction Status Date / Time Antihistamines - AdvReac Other Verified 05/10/24 16:38 Ethylenediamine Family History Father CAD (coronary artery disease) Mother CAD (coronary artery disease) Breast cancer Colon cancer Diabetes Brother CAD (coronary artery disease) CVA (cerebral vascular accident) Diabetes Surgical History History of transurethral resection of prostate Hx of total knee arthroplasty History of ear surgery History of cardiac catheterization History of back surgery Hx of right knee surgery History of esophagogastroduodenoscopy (EGD) Hx of bilateral cataract extraction Hx of colonoscopy History of cystoscopy Presence of coronary angioplasty implant and graft (~09/21/11) History of back surgery (~04/19/17) History of cholecystectomy History of total left knee replacement Hx of appendectomy History of total right knee replacement (TKR) (~03/17/16) Social History Smoking Status: Never smoker alcohol intake: never substance use type: does not use caffeine: Yes Type: carbonated beverages Number of servings: 1 what type of physical activity do you participate in: none seatbelt use: always do you feel safe at home: Yes ROS ROS ED Constitutional Constitutional ED: Reports chills; Denies fever(s) ENT ENT ED: Reports sore throat and other Details: Congestion ; Denies rhinorrhea Cardiovascular Cardiovascular: Denies chest pain Respiratory/Chest Respiratory/Chest: Reports cough and dyspnea Gastrointestinal Gastrointestinal: Denies abdominal pain, diarrhea or vomiting Musculoskeletal Musculoskeletal: Reports arthralgias and myalgias Integumentary Denies rash Neurologic Neurologic: Reports weakness; Denies paresthesias Hematologic/Lymphatic Hematologic/Lymphatic: Denies easy bleeding or easy bruising EXAM Physical Exam Const Vital Signs: 05/10/24 10:24 05/10/24 10:24 05/10/24 11:01 Temperature 98.3 F Temperature Source Oral Pulse Rate 72 Respiratory Rate 28 H Respiratory Effort Short of Breath Respiratory Pattern Blood Pressure 171/132 H Blood Pressure Mean 145 Pulse Ox 90 89 Oxygen Delivery Method Room Air Room Air Oxygen Flow Rate (L/min) 05/10/24 11:26 05/10/24 11:33 05/10/24 11:33 Temperature Temperature Source Pulse Rate 88 Respiratory Rate 17 Respiratory Effort Respiratory Pattern Normal Blood Pressure Blood Pressure Mean Pulse Ox 100 Oxygen Delivery Method Nasal Cannula Nasal Cannula Oxygen Flow Rate (L/min) 2 05/10/24 12:24 05/10/24 13:38 05/10/24 13:41 Temperature 98.3 F Temperature Source Pulse Rate 79 77 Respiratory Rate 13 Respiratory Effort Respiratory Pattern Blood Pressure 147/71 H 137/67 H 128/67 H Blood Pressure Mean 96 90 87 Pulse Ox 99 Oxygen Delivery Method Oxygen Flow Rate (L/min) Positive well nourished and well developed General Appearance ED: well developed and NAD HEENT Reports dry mucous membranes HEENT Narrative: Mild nasal congestion present Mouth ED: Yes dry mucous membranes Mouth: dry mucous membranes Eyes PERRL Neck supple and no JVD Resp Resp Narrative: Tachypneic. Diminished breath sounds at the bases. No wheezing appreciated. Cardio regular rate, regular rhythm and no murmurs GI non-tender and non-distended Extremity normal to inspection General Extremety ED: Negative for edema or tenderness General Extremity: Negative for edema Neuro Neuro Narrative: Oriented x 2. Mildly confused. Sensorium / Orientation: alert Motor Exam: general weakness Psych mental status grossly normal Skin no wounds MDM MDM MDM Narrative Medical decision making narrative: Patient's evaluated for worsening respiratory symptoms. Was diagnosed with COVID 19 yesterday. Is asymptomatic at that time. Differential includes new viral infection, pneumonia, hypercapnic respiratory failure, hypoxic respiratory failure, debility, ELAN, pleural effusion and cardiogenic source (lower suspicion as patient appears dehydrated and does not appear volume overloaded). Is given a DuoNeb, Tylenol and fentanyl (for his leg pain). Anticipate at this time patient require admission. Upon arrival he is respiratory of 28 and is 89% room air. Does not wear supplemental oxygen at baseline INitial VBG showed a very slight acidosis but normal pCO2 and bicarb. Plan to repeat in 1 hour to ensure that patient is stable/doing. Question of acidosis was associate with his prior hypoxia. VBG has normalized. Patient's workup is largely unchanged from yesterday. No acute pneumonia on chest x-ray reviewed by myself as well as radiology. Lab work is all stable. He continues to be positive for COVID-19but repeat viral swab obtained to ensure that he doesn't have a secondary infection such as influenza at this time. Given his acute hypoxia and respiratory symptoms he will be admitted for further treatment of respiratory infection from COVID-19. Patient and his son are agreeable this plan of care. History & Record Review Discussion w/independent historian: Patient Lab Data Attestation: I reviewed the patient's lab results. Labs: Laboratory Results - last 24 hr 05/10/24 11:05 WBC 7.6 RBC 4.31 L Hgb 14.1 Hct 42.4 MCV 98.4 H MCH 32.7 H MCHC 33.3 RDW Std Deviation 51.5 H RDW Coeff of [place] 14.2 Plt Count 158 MPV 9.8 Immature Gran % (Auto) 0.700 Neut % (Auto) 79.2 H Lymph % (Auto) 7.[address] [place] % (Auto) 10.4 H Eos % (Auto) 1.6 Baso % (Auto) 0.5 Absolute Neuts (auto) 6.1 Absolute Lymphs (auto) 0.58 L Nucleated RBC % 0 Sodium 140 Potassium 4.0 Chloride 108 H Carbon Dioxide 27.0 Anion Gap 5 BUN 19 H Creatinine 1.80 H Est GFR (MDRD) Af Amer 47 L Est GFR (MDRD) Non-Af 39 L BUN/Creatinine Ratio 10.6 Glucose 92 Calcium 9.0 Alkaline Phosphatase 86 ABG Data ABG results: ABG 05/10/24 05/10/24 11:42 12:50 Specimen Type ERIKA ERIKA Sample Site Not entered Not entered VBG pH 7.35 7.39 VBG pO2 26 39 VBG HCO3 26 27 H VBG Total CO2 28 28 VBG O2 Sat (Calc) 43 L 73 H VBG Base Excess 0 2 POC Mix VBG pCO2 Pt Tmp 47.9 44.2 O2 Delivery Device Not entered Not entered Radiography Diagnostic Testing: Clinical Impression(s) from Imaging Studies Chest X-Ray 05/10/24 12:15 IMPRESSION: Large hiatal hernia. No acute infiltrate is seen. Reading Location: [id number] 05/10/24 05/10/24 11:42 12:50 Specimen Type ERIKA ERIKA Sample Site Not entered Not entered VBG pH 7.35 7.39 VBG pO2 26 39 VBG HCO3 26 27 H VBG Total CO2 28 28 VBG O2 Sat (Calc) 43 L 73 H VBG Base Excess 0 2 POC Mix VBG pCO2 Pt Tmp 47.9 44.2 O2 Delivery Device Not entered Not entered Rhythm Strip Rhythm Strip: Sinus Rhythm Rate: 88 Ectopy: None EKG Initial EKG: Attestation: I personally reviewed and interpreted this EKG as follows: Interpretation: Sinus Rhythm Comments: Normal sinus rhythm at a rate of 88 bpm line first-degree AV block with a WA interval of 226 Left anterior fascicular block Left axis deviation Normal ST segment Management Discussion w/another healthcare provider: Hospitalist Discharge Plan Dx/Rx/DC Orders Clinical Impression: COVID, RENALDO (obstructive sleep apnea), Generalized weakness, Hypoxia Disposition Disposition: Acute Care Hospital [facility] Discharge Date/Time: 05/10/24 14:57
[2024-05-10] MEDS: fentaNYL 100 MCG/2 ML Ampul 50 MCG IV (11:05)
[2024-05-10] MEDS: Acetaminophen 325 MG Tablet 650 MG PO ×2 (11:06→16:44)
[2024-05-10 11:11] LABS: Absolute Lymphocyte Count 0.58 X10^3/uL (0.83-4.51); Absolute Neutrophil Count 6.1 X10^3/uL (2.0-7.7); Basophil# 0.04 X10^3/uL; Basophil% 0.5 % (0-1); Eosinophil# 0.12 X10^3/uL; Eosinophils% 1.6 % (0-5); Hematocrit 42.4 % (40-54); Hemoglobin 14.1 g/dL (13.0-16.5); Lymphocyte # 0.58 X10^3/ul (0.83-4.51); Lymphocyte % 7.6 % (19-41); Mean Corp Hgb Conc 33.3 g/dL (32-36); Mean Corpuscular Hgb 32.7 pg (27.0-32.0); Mean Corpuscular Volume 98.4 fL (80-94); Mean Platelet Vol. 9.8 fl (6.2-12.0); Monocyte# 0.79 X10^3/uL; Monocyte% 10.4 % (0-10); NRBC Flagged by Analyzer 0 % (0-5); Neutrophil # 6.05 X10^3/uL (2.7-7.7); Neutrophil % 79.2 % (47-70); POSITIVE DIFFERENTIAL YES; Platelet Count 158 K/mm3 (150-450); RBC Distribution Width CV 14.2 % (11.6-14.6); RBC Distribution Width SD 51.5 fl (35.1-43.9); Red Blood Count 4.31 M/mm3 (4.6-6.2); White Blood Count 7.6 K/mm3 (4.4-11.0)
[2024-05-10 11:24] LABS: Anion Gap 5 (5-15); BUN 19 mg/dL (7-18); BUN/Creat Ratio 10.6 RATIO (10-20); Chloride 108 mmol/L (98-107); EST Glomerular Filtration Rate 39 mL/min (>60); Est Glom Filt Rate - Afr Amer 47 mL/min (>60); Glucose 92 mg/dL (74-106); Sodium Level 140 mmol/L (136-145)
[2024-05-10] MEDS: Ipratropium/Albuterol Sulfate 3 ML AMPUL.NEB INHALATION ×3 (11:31→23:37)
[2024-05-10 11:46] LABS: Blood Gas Specimen Type VEN; O2 Delivery Device Not entered; SITE Not entered; VBG BASE EXCESS 0 mmol/L (-1.0-3.5); VBG Bicarbonate 26 mmol/L (22-26); VBG PO2 26 mmHg (25-40); VBG SO2 43 % (50-70); VBG TCO2 28 mmol/L (23-33); VBG pCO2 47.9 mmHg (41-51); VBG pH 7.35 (7.32-7.42)
--- NOTE | 2024-05-10 12:15 | RAD_ITS ---
PROCEDURE: CHEST AP AND LATERAL REASON FOR EXAM: Cough and chest congestion. COVID positive. TECHNIQUE: Frontal and lateral views of the chest. COMPARISON: Comparison is made with prior study dated May 09, 2024. FINDINGS: EKG electrodes are seen. Borderline cardiomegaly. The mediastinal contour is unremarkable. No focal infiltrate is seen. Degenerative changes are identified within the thoracic spine. Large hiatal hernia. RAD/Chest PA and Lateral IMPRESSION: Large hiatal hernia. No acute infiltrate is seen. Reading Location: [id number]
[2024-05-10 12:54] LABS: Blood Gas Specimen Type VEN; O2 Delivery Device Not entered; SITE Not entered; VBG BASE EXCESS 2 mmol/L (-1.0-3.5); VBG Bicarbonate 27 mmol/L (22-26); VBG PO2 39 mmHg (25-40); VBG SO2 73 % (50-70); VBG TCO2 28 mmol/L (23-33); VBG pCO2 44.2 mmHg (41-51); VBG pH 7.39 (7.32-7.42)
--- NOTE | 2024-05-10 14:43 | PCM.HP.STD ---
HPI - General General Date of Admission: 05/10/24 Date of Service: 05/10/24 Chief Complaint: Weakness, shortness of breath, congestion HPI Narrative IMAN ANDREA, is a 78-year-old male with a history of coronary artery disease status post stenting, GERD, hypothyroidism, COPD/asthma who presented [facility] ED 05/10/2024 for worsening shortness of breath, confusion, and generalized weakness. Patient was here on 05/09 after he had slid out of bed and was weak and found to be positive for COVID with no symptoms and no known onset of timing. He was offered admission due to his weakness and debility but he elected to go home with home health and a palliative consult. Reportedly had a good night last night and slept through the night and ate dinner however today he was more confused and was working harder to breathe so was brought back to the emergency room due to these respiratory symptoms. Upon arrival his respiratory rate was 28 and he was 89% on room air. X-ray negative for acute infiltrate, lab workup otherwise unremarkable. He was given DuoNebs and given the hypoxia and weakness hospitalist contacted for admission. Patient evaluated family member at bedside, patient feels little bit sore after his fall, otherwise reports today he has a sore throat with congestion and shortness of breath/URI-like symptoms prompting him to come back in. Also still remains weak [facility] Medical History (Updated 05/10/24 @ 13:57 by Tatianna Phillips) Anemia Arthritis Asthma Atherosclerosis of [place] coronary artery of [place] heart without angina pectoris Back pain BiPAP (biphasic positive airway pressure) dependence Bladder disease BPH (benign prostatic hyperplasia) Cardiology follow-up encounter Chest pain Chronic lumbar radiculopathy Chronic serous otitis media of right ear Congestive heart failure (CHF) COPD (chronic obstructive pulmonary disease) CPAP (continuous positive airway pressure) dependence Depression Dysphagia Easy bruising Elevated troponin Essential (primary) hypertension Gastric reflux Heart failure Hiatal hernia High cholesterol History of CHF (congestive heart failure) History of echocardiogram History of edema History of heart attack History of hiatal hernia History of kidney stones History of pulmonary embolism History of steroid therapy History of stress test Hyperlipidemia Hypertension Hypertensive urgency Kidney disease Myocardial infarct Nephrolithiasis Neuropathy Non-smoker NSTEMI, initial episode of care RENALDO (obstructive sleep apnea) Presence of stent in coronary artery (~09/21/11) Prostate disease Pulmonary embolism Renal insufficiency Restless legs Rheumatoid arthritis Shortness of breath on exertion Sleep apnea Syncope Thyroid disease Walker as ambulation aid Wears glasses Wears hearing aid Home Medications ?Medication ?Instructions ?Recorded ?Last Taken ?Type atorvastatin 40 mg tablet 40 mg PO QHS 12/18/12 05/09/24 History omeprazole 20 mg capsule,delayed 20 mg PO DAILY 12/18/12 05/08/24 History release nitroglycerin 0.4 mg sublingual 0.4 mg sublingual Q5M PRN Chest 07/13/17 05/08/24 Rx tablet Pain #90 tabs levothyroxine 100 mcg tablet 100 mcg PO DAILY 05/30/18 05/08/24 History aspirin 81 mg tablet,delayed 81 mg PO DAILY 05/25/19 05/08/24 History release (Adult Low Dose Aspirin) fluticasone furoate 100 1 inh inhalation DAILY 05/05/20 05/08/24 History mcg-vilanterol 25 mcg/dose inhalation powder (Breo Ellipta) hydroxychloroquine 200 mg tablet 200 mg PO DAILY 11/05/21 05/08/24 History cyanocobalamin (vitamin B-12) 100 mcg IM QMONTH 05/13/22 05/04/24 History 1,000 mcg/mL injection kit ferrous sulfate 325 mg (65 mg 325 mg PO DAILY 05/13/22 05/08/24 History iron) tablet latanoprost 0.005 % eye drops 1 drp ophthalmic (eye) QPM 05/13/22 05/09/24 History pramipexole 1 mg tablet 3 mg PO QHS RLS 05/05/23 05/09/24 History Bilateral AFOs #2 ea 07/11/23 Unknown Rx carvedilol 25 mg tablet 25 mg PO BIDCM #180 tabs 08/31/23 05/09/24 Rx cholecalciferol (vitamin D3) 1,250 1,250 mcg PO QWEEK #4 caps 11/14/23 05/02/24 Rx mcg (50,000 unit) capsule gabapentin 400 mg capsule 400 mg PO TID #90 caps 11/14/23 05/08/24 Rx budesonide 0.5 mg/2 mL suspension 0.25 mg inhalation BID 01/02/24 05/09/24 History for nebulization tezepelumab-ekko 210 mg/1.91 mL 210 mg subcut Q4W 10/14/24 02/18/25 History (110 mg/mL) subcutaneous pen injector (Tezspire) doxazosin 4 mg tablet 6 mg PO QDAY 03/01/24 05/08/24 History albuterol sulfate 90 mcg/actuation 2 inh inhalation Q6H PRN wheezing 05/10/24 Unknown History aerosol inhaler doxazosin 2 mg tablet 2 mg PO QHS 05/10/24 05/09/24 History furosemide 20 mg tablet 20 mg PO QAM edema 05/10/24 05/08/24 History hydrocodone-acetaminophen 5-325mg 1 tab PO BID PRN pain 05/10/24 05/09/24 History 5mg-325mg linaclotide 72 mcg capsule 72 mcg PO DAILY 05/10/24 05/08/24 History (Linzess) mirabegron 25 mg tablet,extended 25 mg PO DAILY 05/10/24 05/08/24 History release 24 hr (Myrbetriq) Allergy/AdvReac Type Severity Reaction Status Date / Time Antihistamines - AdvReac Other Verified 05/10/24 10:25 Ethylenediamine Family History Father CAD (coronary artery disease) Mother CAD (coronary artery disease) Breast cancer Colon cancer Diabetes Brother CAD (coronary artery disease) CVA (cerebral vascular accident) Diabetes Surgical History History of back surgery (~04/19/17) History of back surgery History of cardiac catheterization History of cholecystectomy History of cystoscopy History of ear surgery History of esophagogastroduodenoscopy (EGD) History of total left knee replacement History of total right knee replacement (TKR) (~03/17/16) History of transurethral resection of prostate Hx of appendectomy Hx of bilateral cataract extraction Hx of colonoscopy Hx of right knee surgery Hx of total knee arthroplasty Presence of coronary angioplasty implant and graft (~09/21/11) Social History Smoking Status: Never smoker alcohol intake: never substance use type: does not use caffeine: Yes Type: carbonated beverages Number of servings: 1 what type of physical activity do you participate in: none seatbelt use: always do you feel safe at home: Yes ROS ROS Narrative General: Denies fever/chills HENT: Sore throat and headache EYES: Denies changes in vision Resp: Shortness of breath and chest congestion Cardiac: Denies chest pain GI: Denies abdominal pain, denies changes in bowel, denies nausea/vomiting : Denies changes in urination Extremity: Denies swelling MSK: Generalized weakness Neuro: Denies any numbness/tingling Heme: Denies any bleeding or bruising Skin: Denies rashes Psychiatric: No complaints voiced Vital Signs Vital Signs Vital Signs: 05/10/24 10:24 05/10/24 10:24 05/10/24 11:01 Temperature 98.3 F Temperature Source Oral Pulse Rate 72 Respiratory Rate 28 H Respiratory Effort Short of Breath Respiratory Pattern Blood Pressure 171/132 H Blood Pressure Mean 145 Pulse Ox 90 89 Oxygen Delivery Method Room Air Room Air Oxygen Flow Rate (L/min) 05/10/24 11:26 05/10/24 11:33 05/10/24 11:33 Temperature Temperature Source Pulse Rate 88 Respiratory Rate 17 Respiratory Effort Respiratory Pattern Normal Blood Pressure Blood Pressure Mean Pulse Ox 100 Oxygen Delivery Method Nasal Cannula Nasal Cannula Oxygen Flow Rate (L/min) 2 05/10/24 12:24 05/10/24 13:38 05/10/24 13:41 Temperature 98.3 F Temperature Source Pulse Rate 79 77 Respiratory Rate 13 Respiratory Effort Respiratory Pattern Blood Pressure 147/71 H 137/67 H 128/67 H Blood Pressure Mean 96 90 87 Pulse Ox 99 Oxygen Delivery Method Oxygen Flow Rate (L/min) Weight Weight: 99.9 kg Body Mass Index (BMI) 32.5 Physical Exam Narrative General: Alert, no apparent distress HEENT: Atraumatic, normocephalic Eyes: Anicteric, normal conjunctiva, extraocular movements grossly intact Neck: Supple Respiratory: Diffuse wheezing, slight increase in respiratory effort Cardiovascular: Regular rate and rhythm GI: Soft, nontender, nondistended Extremities: No edema Musculoskeletal: Moving all extremities Neuro: No overt focal neurological deficits Skin: No rashes appreciated Psych: Cooperative Results Lab / Micro Data 05/10/24 11:05 05/10/24 11:05 Labs: Laboratory Results - last 24 hr 05/10/24 11:05: WBC 7.6, RBC 4.31 L, Hgb 14.1, Hct 42.4, MCV 98.4 H, MCH 32.7 H, MCHC 33.3, RDW Std Deviation 51.5 H, RDW Coeff of [place] 14.2, Plt Count 158, MPV 9.8, Immature Gran % (Auto) 0.700, Neut % (Auto) 79.2 H, Lymph % (Auto) 7.6 L, [place] % (Auto) 10.4 H, Eos % (Auto) 1.6, Baso % (Auto) 0.5, Absolute Neuts (auto) 6.1, Absolute Lymphs (auto) 0.58 L, Nucleated RBC % 0, Sodium 140, Potassium 4.0, Chloride 108 H, Carbon Dioxide 27.0, Anion Gap 5, BUN 19 H, Creatinine 1.80 H, Est GFR (MDRD) Af Amer 47 L, Est GFR (MDRD) Non-Af 39 L, BUN/Creatinine Ratio 10.6, Glucose 92, Calcium 9.0 Micro: Microbiology 05/10/24 11:10 Mucosa - Nose SARS-CoV-2, Influenza & RSV (PCR) - Final SARS-CoV-2 (COVID 19 PCR) ABG Data ABG results: ABG 05/10/24 05/10/24 11:42 12:50 Specimen Type ERIKA ERIKA Sample Site Not entered Not entered VBG pH 7.35 7.39 VBG pO2 26 39 VBG HCO3 26 27 H VBG Total CO2 28 28 VBG O2 Sat (Calc) 43 L 73 H VBG Base Excess 0 2 POC Mix VBG pCO2 Pt Tmp 47.9 44.2 O2 Delivery Device Not entered Not entered Imaging Radiology Impression Chest X-Ray 05/10/24 12:15 IMPRESSION: Large hiatal hernia. No acute infiltrate is seen. Reading Location: [id number] Assessment & Plan Assessment/Plan (1) COVID: PLAN: Plan # Exacerbation of COPD/asthma secondary to COVID-19 infection -Admit to floor, continuous O2 monitoring -Chest x-ray: No acute process -Found to be COVID-positive yesterday -O2 in place, wean as tolerated -IV dexamethasone -Patient tested positive yesterday and became symptomatic today, seems like his illness has developed over the past 48 hours so do think it is reasonable to start remdesivir -Scheduled DuoNebs -Albuterol prn -Incentive spirometer -Mucinex # CKD stage III b -Appears to be at baseline -Avoid nephrotoxic agents -Daily BMPs # History of CAD -With previous stent -Continue aspirin and statin -Continue beta-bharathi with holding parameters #GERD -Continue PPI #Hypothyroidism -Continue Synthroid #Hx RA -On hydroxychloroquine #RENALDO -Continue home NIPPV if applicable # Restless leg syndrome -Continue pramipexole # History of heart failure preserved ejection fraction -Follows with Dr. Kwong in the outpatient office last seen in February -Daily weights, I's and O's -Does not appear overloaded at this time -Will continue home Lasix at this time #DVT ppx: Heparin subcu Sruthi Butts MD Charges/Coding Visit Charges Inpatient E&M: 09796 Init Hosp L2
[2024-05-10 15:58] LABS: Alkaline Phosphatase 86 U/L (45-117)
[2024-05-10] MEDS: Remdesivir 200 MG in 0.9% Normal Saline (250mL Bag) 210 ML 250 MG IV (16:43)
[2024-05-10] MEDS: Carvedilol 25 MG Tablet PO (16:44)
[2024-05-10] MEDS: dexAMETHasone 10 MG/ML Vial 6 MG IV (18:23)
[2024-05-10 20:14] LABS: Mucous, Urine 0 SEEN /hpf (<or=2+)
[2024-05-10 20:15] LABS: Color, Urine Yellow (Yellow); Glucose, Dipstick Normal (Normal); Ketone-Dipstick Negative (Negative); Leukocyte Esterase-Dipstick 500 /ul (Negative); Nitrite-Dipstick Negative (Negative); Occult Blood-Urine 10 /ul (Negative); Protein-Dipstick 30 mg/dl (Negative); Specific Gravity, Urine 1.025 (1.002-1.030); Urine Bilirubin Dipstick Negative (Negative); Urine Clarity Sl. Cloudy (Clear); Urine Urobilinogen 1 mg/dl (Normal)
[2024-05-10 20:22] LABS: Red Blood Cells-Urine 0 SEEN /hpf (0-5)
[2024-05-10 20:23] LABS: Bacteria 1+ /hpf (None Seen); Squamous Epithelial Cells - UA 0-5 SEEN /hpf (0-5); White Blood Cells 50-100 SEEN /hpf (0-5); Yeast-Urine 2+ /hpf (None Seen)
--- NOTE | 2024-05-10 21:28 | CPS ---
Patient brought in own PAP machine for the night.
[2024-05-10] MEDS: Heparin Injection (Vial) 5,000 UNIT/ML VIAL 5000 UNIT SC (23:05)
[2024-05-10] MEDS: Latanoprost 0.005% 1 Bottle 1 DRP OPHTHALMIC (23:05)
[2024-05-10] MEDS: guaiFENesin 1,200 MG Tablet 1200 MG PO (23:06)
[2024-05-10] MEDS: Pramipexole Di-HCl 1 MG Tablet 3 MG PO (23:06)
[2024-05-10] MEDS: Atorvastatin Calcium 40 MG Tablet PO (23:06)
[2024-05-10] MEDS: Doxazosin 1 MG Tablet 2 MG PO (23:06)
[2024-05-10] MEDS: Senna/Docusate Sodium 1 Tablet 2 TABLET PO (23:06)
[2024-05-10] MEDS: Gabapentin 400 MG Capsule PO (23:06)
[2024-05-11] VITALS (8 sets, daily range): BP systolic 138–166; BP diastolic 73–82; PULSE 60–78; RESP 16–18; TEMP 36.7–36.8; O2SAT 94–98; BMI 30.4
[2024-05-11] MEDS: Heparin Injection (Vial) 5,000 UNIT/ML VIAL 5000 UNIT SC ×3 (06:14→21:43)
[2024-05-11] MEDS: Gabapentin 400 MG Capsule PO ×3 (06:14→21:41)
[2024-05-11] MEDS: Levothyroxine 100 MCG Tablet PO (06:14)
--- NOTE | 2024-05-11 07:15 | NURSING ---
Patient was confused upon waking up this morning and didn't know where he was. He said his room smelled like charcoal so he called 911 because he thought he was being poisoned. Resource officers came to room to talk to patient. RN came into room and patient was more oriented, knew where he was, and no longer smelled charcoal. He is resting in bed at this time
[2024-05-11] MEDS: Ipratropium/Albuterol Sulfate 3 ML AMPUL.NEB INHALATION ×5 (07:26→22:44)
[2024-05-11] MEDS: Aspirin E.C. 81 MG Tablet PO (08:02)
[2024-05-11] MEDS: Carvedilol 25 MG Tablet PO ×2 (08:02→17:23)
[2024-05-11] MEDS: Ceftriaxone 1 GM/50 ML BAG IV (09:54)
[2024-05-11] MEDS: dexAMETHasone 10 MG/ML Vial 6 MG IV (09:56)
[2024-05-11] MEDS: Doxazosin 4 MG Tablet 6 MG PO (09:59)
[2024-05-11] MEDS: Vibegron 75 MG TABLET PO (10:00)
[2024-05-11] MEDS: Furosemide 20 MG Tablet PO (10:00)
[2024-05-11] MEDS: Senna/Docusate Sodium 1 Tablet 2 TABLET PO ×2 (10:01→21:42)
[2024-05-11] MEDS: Pantoprazole Sodium 20 MG Tablet PO (10:01)
[2024-05-11] MEDS: guaiFENesin 1,200 MG Tablet 1200 MG PO ×2 (10:01→21:42)
[2024-05-11 10:12] LABS: Absolute Lymphocyte Count 0.46 X10^3/uL (0.83-4.51); Absolute Neutrophil Count 5.4 X10^3/uL (2.0-7.7); Basophil# 0.01 X10^3/uL; Basophil% 0.2 % (0-1); Hematocrit 44.2 % (40-54); Hemoglobin 14.3 g/dL (13.0-16.5); Lymphocyte # 0.46 X10^3/ul (0.83-4.51); Lymphocyte % 7.5 % (19-41); Mean Corp Hgb Conc 32.4 g/dL (32-36); Mean Corpuscular Hgb 32.1 pg (27.0-32.0); Mean Corpuscular Volume 99.1 fL (80-94); Mean Platelet Vol. 9.7 fl (6.2-12.0); Monocyte# 0.19 X10^3/uL; Monocyte% 3.1 % (0-10); NRBC Flagged by Analyzer 0 % (0-5); Neutrophil # 5.44 X10^3/uL (2.7-7.7); Neutrophil % 88.7 % (47-70); POSITIVE DIFFERENTIAL YES; Platelet Count 137 K/mm3 (150-450); RBC Distribution Width CV 13.8 % (11.6-14.6); RBC Distribution Width SD 50.7 fl (35.1-43.9); Red Blood Count 4.46 M/mm3 (4.6-6.2); White Blood Count 6.1 K/mm3 (4.4-11.0)
--- NOTE | 2024-05-11 10:25 | CASEMGMT ---
MARK ALVARADO Assessment: Face to Face with pt for initial transition planning/care coordination assessment. MARK ALVARADO introduced self and role at [facility], pt voices understanding and consents to assessment. Pt is A&O x4 and answers all questions appropriately at this time. Care providers, pharmacy, and demographics verified/updated. Strata: 3 Admitting Dx: COVID, Hypoxia, UTI PCP: Kyle Specialists: Varghese, Cardiovascular; Mine, Pulmonary; Danielle, Pain Managment; Ulices, ENT; Solis, Nephrology Preferred Pharmacy: [facility] Insurance: setObject [facility] Prescription Benefit: yes LNOK: Son, Desmond; Son, Joel Living Arrangements: Pt lives alone with home health care aides from [facility] every day from 10am - 9 pm, in a ranch home with 1 step to enter. ADLs: Pt needs assistance with ADLs and IADLs. Transportation: Pt family or caregivers provide transportation. DME: grab bars, shower chair, nebulizer, CPAP, cane, walker. HHC/SNF: Denies SNF, previously used [facility]. Pt states no concerns with going home at time of dc. Pt states no further concerns/needs. CM to follow. Advised pt to ask CM if any further question/concerns/needs arise, voices understanding. Pt Goal: TBD Plan: TBD, follow therapy for recommendations. Pt preference is to return home. Katheryn FLORES CM
[2024-05-11 10:46] LABS: AST(SGOT) 31 U/L (15-37); Alanine Aminotransfer ALT/SGPT 32 U/L (16-61); Anion Gap 8 (5-15); BUN 20 mg/dL (7-18); BUN/Creat Ratio 13.1 RATIO (10-20); Chloride 107 mmol/L (98-107); Creatinine, Serum 1.53 mg/dL (0.70-1.30); EST Glomerular Filtration Rate 47 mL/min (>60); Est Glom Filt Rate - Afr Amer 57 mL/min (>60); Estimated Creatinine Clearance 44.84 ml/min; Glucose 212 mg/dL (74-106); Potassium 3.6 mmol/L (3.5-5.1); Sodium Level 139 mmol/L (136-145)
[2024-05-11] MEDS: Remdesivir 100 MG in 0.9% Normal Saline (250mL Bag) 230 ML 250 MG IV (10:54)
--- NOTE | 2024-05-11 13:48 | PN_ITS ---
Subjective Subjective Patient seen and examined. He had no active complaints. He denied any fever, chills, cough, chest pain, palpitations, dizziness, nausea or vomiting. Urinalysis did show 1+ bacteria. On further questioning, he admitted to burning and pain with urination. He admits to prostate issues also. Review of systems is otherwise negative. Objective Data Objective Data Vital Signs: Vital Signs Temp Pulse Resp BP Pulse Ox O2 Del Method O2 Flow Rate 98.0 F 66 18 166/82 H 94 Room Air 2 05/11/24 07:52 05/11/24 11:37 05/11/24 11:37 05/11/24 07:52 05/11/24 11:37 05/11/24 11:37 05/11/24 07:28 Oxygen Flow Rate (L/min) 2 Oxygen Delivery Method Room Air Weight: 212 lb 4.882 oz Body Mass Index (BMI) 30.4 Intake & Output: Intake and Output for Last 24 Hours 05/09/24 05/10/24 05/11/24 23:59 23:59 23:59 Intake Total 490 / 490 300 / 300 Output Total 1025 / 1025 Balance 490 / 140 -725 / -725 Lab / Micro Data 05/11/24 09:25 05/11/24 09:25 Labs: Laboratory Results - last 24 hr 05/10/24 11:05: Alkaline Phosphatase 86 05/10/24 20:00: Urine Color Yellow, Urine Clarity Sl. Cloudy, Urine pH 5.0, Ur Specific Cheney 1.025, Urine Protein 30 H, Urine Glucose (UA) Normal, Urine Ketones Negative, Urine Occult Blood 10 H, Urine Nitrite Negative, Urine Bilirubin Negative, Urine Urobilinogen 1 H, Ur Leukocyte Esterase 500 H, Urine RBC 0 SEEN, Urine WBC 50-100 SEEN, Ur Squamous Epith Cells 0-5 SEEN, Urine Bacteria 1+, Urine Mucus 0 SEEN, Urine Yeast 2+ 05/11/24 09:25: WBC 6.1, RBC 4.46 L, Hgb 14.3, Hct 44.2, MCV 99.1 H, MCH 32.1 H, MCHC 32.4, RDW Std Deviation 50.7 H, RDW Coeff of Cornell 13.8, Plt Count 137 L, MPV 9.7, Immature Gran % (Auto) 0.500, Neut % (Auto) 88.7 H, Lymph % (Auto) 7.5 L, Storey % (Auto) 3.1, Eos % (Auto) 0.0, Baso % (Auto) 0.2, Absolute Neuts (auto) 5.4, Absolute Lymphs (auto) 0.46 L, Nucleated RBC % 0, Sodium 139, Potassium 3.6, Chloride 107, Carbon Dioxide 24.0, Anion Gap 8, BUN 20 H, Creatinine 1.53 H , Estim Creat Clear Calc 44.84, Est GFR (MDRD) Af Amer 57 L, Est GFR (MDRD) Non- Af 47 L, BUN/Creatinine Ratio 13.1, Glucose 212 H, Calcium 9.0, AST 31, ALT 32 Micro: Microbiology 05/10/24 11:10 Mucosa - Nose SARS-CoV-2, Influenza & RSV (PCR) - Final SARS-CoV-2 (COVID 19 PCR) Rhythm Strip Rhythm Strip: Sinus Rhythm Rate: 88 Ectopy: None Physical Exam Const alert, oriented x3, no apparent distress and well nourished General Appearance: cooperative HEENT normocephalic, head/scalp atraumatic, moist oral mucous membranes and oropharynx normal Eyes PERRL and EOMs intact bilaterally Neck no lymphadenopathy and supple Lymph Lymphatic: no lymphadenopathy noted and no lymphedema noted Resp normal respiratory effort Cardio regular rate, regular rhythm, S1 normal heart sound, S2 normal heart sound and no murmurs GI normal to inspection, nondistended, normoactive bowel sounds, soft to palpation, non-tender and non-distended Extremity normal capillary refill, no clubbing, cyanosis or edema and no calf tenderness General Extremity: no tenderness to palpation of joints or extremities Skin General Skin Exam: no breakdown Neuro CN's II-XII intact bilaterally, no focal motor deficits and no sensory deficits noted Motor Exam: strength 5/5 throughout and general weakness Psych thought process normal and cooperative Appearance: appropriate Assessment & Plan Assessment/Plan (1) Hypoxia: (2) COVID: (3) Generalized weakness: (4) UTI (urinary tract infection): PLAN: Plan #Debility and weakness due to COVID 19 infection * patient feels much better. On room air. * ON decadron * breathing treatment with bronchodilators * titrate oxygen to maintain sats >90% * #UTI * urinalysis showed evidence of UTI with 1+ bacteria. He also complains of burning with urination * will start on IV ceftriaxone. * Urine cultures pending. * #Hypothyroidism:on synthroid #CKD III: Cr is 1.53 which is around his baseline. #GERD: on PPI #BPH: on flomax #HFpEF: not in exacerbation. On lasix. #RENALDO: on CPAP qhs #Histoyr of rheumatoid arthritis: on hydroxychloroquine #Restless leg syndrome: on pramipexole DVT prophylaxis: heparin Charges/Coding Visit Charges Inpatient E&M: 12489 Subs Hosp L2
[2024-05-11] MEDS: Doxazosin 1 MG Tablet 2 MG PO (21:42)
[2024-05-11] MEDS: Pramipexole Di-HCl 1 MG Tablet 3 MG PO (21:42)
[2024-05-11] MEDS: Atorvastatin Calcium 40 MG Tablet PO (21:42)
[2024-05-11] MEDS: Latanoprost 0.005% 1 Bottle 1 DRP OPHTHALMIC (21:43)
[2024-05-12] VITALS (8 sets, daily range): BP systolic 138–160; BP diastolic 78–130; PULSE 72–86; RESP 17–20; TEMP 36.3–37; O2SAT 91–97; BMI 30.4
[2024-05-12] MEDS: Ipratropium/Albuterol Sulfate 3 ML AMPUL.NEB INHALATION ×3 (02:18→11:14)
[2024-05-12] MEDS: Heparin Injection (Vial) 5,000 UNIT/ML VIAL 5000 UNIT SC ×2 (06:41→13:14)
[2024-05-12] MEDS: Levothyroxine 100 MCG Tablet PO (06:41)
[2024-05-12] MEDS: Gabapentin 400 MG Capsule PO ×2 (06:41→13:11)
[2024-05-12] MEDS: Carvedilol 25 MG Tablet PO ×2 (10:38→17:05)
[2024-05-12] MEDS: Remdesivir 100 MG in 0.9% Normal Saline (250mL Bag) 230 ML 250 MG IV (10:41)
[2024-05-12] MEDS: guaiFENesin 1,200 MG Tablet 1200 MG PO (10:44)
[2024-05-12] MEDS: Senna/Docusate Sodium 1 Tablet 2 TABLET PO (10:44)
[2024-05-12] MEDS: Furosemide 20 MG Tablet PO (10:46)
[2024-05-12] MEDS: Pantoprazole Sodium 20 MG Tablet PO (10:46)
[2024-05-12] MEDS: Aspirin E.C. 81 MG Tablet PO (10:46)
[2024-05-12] MEDS: dexAMETHasone 10 MG/ML Vial 6 MG IV (10:48)
[2024-05-12] MEDS: Doxazosin 4 MG Tablet 6 MG PO (10:48)
[2024-05-12] MEDS: Ceftriaxone 1 GM/50 ML BAG IV (11:58)
[2024-05-12] MEDS: Vibegron 75 MG TABLET PO (13:11)
--- NOTE | 2024-05-12 15:16 | CASEMGMT ---
MARK ALVARADO into pt room, provided pt with list of local HHC agencies and discussed SN, PT and OT. Pt denies wanting HHC at this time. MARK ALVARADO informed pt he can get a script from his PCP in the future if he changes his mind. Denies questions or concerns at this time.
--- NOTE | 2024-05-12 15:29 | DS.PCM_ITS ---
Providers Date of Admission: 05/10/24 Date of Discharge: 05/12/24 Primary Care Physician: Dr. Waqar Wright DO Reason For Visit: COVID 19, HYPOXIA Diagnosis Discharge Diagnosis (1) Hypoxia: Status: Acute Code(s): R09.02 - Hypoxemia (2) COVID: Status: Acute Code(s): U07.1 - COVID-19 (3) Generalized weakness: Status: Acute Code(s): R53.1 - Weakness (4) UTI (urinary tract infection): Status: Acute Code(s): N39.0 - Urinary tract infection, site not specified Plan #Debility and weakness due to COVID 19 infection * patient feels much better. On room air. * ON decadron * breathing treatment with bronchodilators * titrate oxygen to maintain sats >90% * #UTI * urinalysis showed evidence of UTI with 1+ bacteria. He also complains of burning with urination * will start on IV ceftriaxone. * Urine cultures pending. * #Hypothyroidism:on synthroid #CKD III: Cr is 1.53 which is around his baseline. #GERD: on PPI #BPH: on flomax #HFpEF: not in exacerbation. On lasix. #RENALDO: on CPAP qhs #Histoyr of rheumatoid arthritis: on hydroxychloroquine #Restless leg syndrome: on pramipexole DVT prophylaxis: heparin Medications at Discharge Home Medications atorvastatin 40 mg tablet 40 mg PO QHS 12/18/12 omeprazole 20 mg capsule,delayed release 20 mg PO DAILY 12/18/12 nitroglycerin 0.4 mg sublingual tablet 0.4 mg sublingual Q5M PRN Chest Pain #90 tabs 07/13/17 levothyroxine 100 mcg tablet 100 mcg PO DAILY 05/30/18 aspirin 81 mg tablet,delayed release (Adult Low Dose Aspirin) 81 mg PO DAILY 05/25/19 fluticasone furoate 100 mcg-vilanterol 25 mcg/dose inhalation powder (Breo Ellipta) 1 inh inhalation DAILY 05/05/20 hydroxychloroquine 200 mg tablet 200 mg PO DAILY 11/05/21 cyanocobalamin (vitamin B-12) 1,000 mcg/mL injection kit 100 mcg IM QMONTH 05/13/22 ferrous sulfate 325 mg (65 mg iron) tablet 325 mg PO DAILY 02/23/23 latanoprost 0.005 % eye drops 1 drp ophthalmic (eye) QPM 05/13/22 pramipexole 1 mg tablet 3 mg PO QHS RLS 05/05/23 Bilateral AFOs #2 ea 07/11/23 carvedilol 25 mg tablet 25 mg PO BIDCM #180 tabs 08/31/23 cholecalciferol (vitamin D3) 1,250 mcg (50,000 unit) capsule 1,250 mcg PO QWEEK #4 caps 11/14/23 gabapentin 400 mg capsule 400 mg PO TID #90 caps 11/14/23 budesonide 0.5 mg/2 mL suspension for nebulization 0.25 mg inhalation BID 01/02/24 tezepelumab-ekko 210 mg/1.91 mL (110 mg/mL) subcutaneous pen injector (Tezspire) 210 mg subcut Q4W 01/02/24 doxazosin 4 mg tablet 6 mg PO QDAY 03/01/24 albuterol sulfate 90 mcg/actuation aerosol inhaler 2 inh inhalation Q6H PRN wheezing 05/10/24 doxazosin 2 mg tablet 2 mg PO QHS 05/10/24 furosemide 20 mg tablet 20 mg PO QAM edema 05/10/24 hydrocodone-acetaminophen 5-325mg 5mg-325mg 1 tab PO BID PRN pain 05/10/24 linaclotide 72 mcg capsule (Linzess) 72 mcg PO DAILY 05/10/24 mirabegron 25 mg tablet,extended release 24 hr (Myrbetriq) 25 mg PO DAILY 05/10/24 cefdinir 300 mg capsule 300 mg PO BID #10 caps 05/12/24 Hospital Course Operations None Procedures None Summary of Care Provided Minutes Spent on Discharge: 55 Hospital Course: Patient is an 78-year-old male with a past medical history as outlined was admitted to the ED on 05/10/2024 with a complaint of worsening shortness of breath, confusion and generalized weakness. He had been seen in the ED on 05/09/2024 after he slid out of bed and was weak. In the ED he tested positive for COVID but had no respiratory symptoms. He was offered admission then but elected to go home with home health care and palliative consults. He had a good night but this next day he became more confused and was short of breath so he was brought into the ED where he was found to be saturating at 89% on room air and his respiratory it was 28. Chest x-ray showed no evidence of acute infiltrate and lab workup was unremarkable. He was admitted and managed for hypoxia and weakness due to UTI. He was started on Decadron. Patient did not require any oxygen during the admission and was on room air apart from BiPAP which he wore at night as at home. He worked with therapy and did well and felt stronger. He remained stable and was discharged home on 05/12/2024. He had walking pulse ox which showed that he did not require any oxygen. He was discharged home with home health care and is follow-up with his primary care doctor within 1 to 2 weeks. Patient seen and examined prior to discharge. He felt well and had no complaints. He was on room air. He said he felt well and was eager to be discharged home. Labs and vitals reviewed. Medication reviewed and reconciled. Since he was now on room air he was not discharged with any Decadron. Of note patient had had 1+ bacteria in his urine when he came in and so he was started on IV ceftriaxone. Urine cultures are growing gram-negative rods lactose enrollment management coordinator with yeast not Mayuri and speciation is pending. Patient was therefore discharged home on p.o. cefdinir 300 mg twice daily for 5 days. Physical Exam Const alert, oriented x3, no apparent distress and well nourished General Appearance: cooperative and comfortable Orientation / Consciousness: awake Exam Limitations: no limitations HEENT normocephalic, head/scalp atraumatic, hearing grossly normal bilaterally, moist oral mucous membranes and oropharynx normal Mouth: oral and palatal mucosa normal Eyes PERRL, EOMs intact bilaterally and conjunctivae normal Neck no lymphadenopathy and supple Lymph Lymphatic: no lymphadenopathy noted and no lymphedema noted Resp normal respiratory effort Cardio regular rate, regular rhythm, S1 normal heart sound, S2 normal heart sound and no murmurs GI normal to inspection, nondistended, normoactive bowel sounds, soft to palpation, non-tender and non-distended Extremity normal to inspection, full ROM, normal capillary refill, no clubbing, cyanosis or edema and no calf tenderness General Extremity: no tenderness to palpation of joints or extremities Skin no rashes or lesions noted, no wounds and skin turgor normal General Skin Exam: no breakdown Neuro oriented x3, CN's II-XII intact bilaterally, moves all extremities, no focal motor deficits and no sensory deficits noted Sensorium / Orientation: awake and alert Motor Exam: strength 5/5 throughout and general weakness Psych thought process normal and cooperative Appearance: appropriate Weight / BMI Weight Weight: 212 lb 4.882 oz Body Mass Index (BMI) 30.4 ABG / Lab / Microbiology Data 05/11/24 09:25 05/11/24 09:25 Microbiology: Microbiology 05/10/24 20:00 Urine, Clean Catch Urine Culture - Final Yeast, not Mayuri albicans GNR lactose enrollment management coordinator 05/10/24 11:10 Mucosa - Nose SARS-CoV-2, Influenza & RSV (PCR) - Final SARS-CoV-2 (COVID 19 PCR) D/C Instructions Discharge Diet: Low fat / Low cholesterol Discharge Activity: Return to Normal Activity Weight Bearing Status: Weight bearing as tolerated Call your doctor if you observe: Fever of 101 or Higher, Shortness of breath, Dizziness, Swelling in the ankles and Chest pain DC O2, CPAP, BIPAP Needs Home O2 Discharge instructions: No Meaningful Use Info Meaningful Use Meaningful Use Diagnoses (Choose all that apply): None applicable Ischemic Stroke Statin Dosing Therapy Reference: STATIN DOSE THERAPY REFERENCE: * Patients > 75 years receive moderate or high dose statin therapy. * Patients 75 years or YOUNGER should receive HIGH intensity statin dose unless contraindicated. You will be required to document reason for non-treatment if statin daily dose does not meet guidelines. HIGH DOSE STATIN THERAPY DAILY Atorvastatin > than or = to 40 mg Rosuvastatin > than or = to 20 mg Amlodipine + Atorvastatin > than or = to 2.5/40 mg Ezetimibe + Simvastatin 10/80 mg Simvastatin 80mg Discharge Plan Admission Admit Date/Time: 05/10/24 14:44 Primary Reason for Your Visit: covid 19 infection Attending Provider: Lisa Cary Primary Care Provider: Waqar Wright Consulting Providers: Sruthi Butts Instructions Patient Instructions: Coronavirus Disease 2019 (COVID-19): Overview Discharge Orders/Prescriptions Prescriptions: New cefdinir 300 mg capsule 300 mg PO BID Qty: 10 0RF Continued nitroglycerin 0.4 mg tablet, sublingual 0.4 mg SUBLINGUAL Q5M PRN (Reason: Chest Pain) Qty: 90 6RF levothyroxine 100 mcg tablet 100 mcg PO DAILY aspirin [Adult Low Dose Aspirin] 81 mg tablet,delayed release (DR/EC) 81 mg PO DAILY Breo Ellipta 100-25 mcg/dose blister with device 1 inh INHALATION DAILY hydroxychloroquine 200 mg tablet 200 mg PO DAILY ferrous sulfate 325 mg (65 mg iron) tablet 325 mg PO DAILY cyanocobalamin (vitamin B-12) 1,000 mcg/mL kit 100 mcg IM QMONTH latanoprost 0.005 % drops 1 drp ophthalmic (eye) QPM (DME) Bilateral AFOs See Rx Instructions .Route .MEDSUPPLY Qty: 2 0RF Rx Instructions: As directed for bilateral foot drop, polyneuropathy and chronic lumbar radiculopathy. gabapentin 400 mg capsule 400 mg PO TID Qty: 90 5RF cholecalciferol (vitamin D3) 1,250 mcg (50,000 unit) capsule 1,250 mcg PO QWEEK Qty: 4 5RF budesonide 0.5 mg/2 mL suspension for nebulization 0.25 mg inhalation BID Tezspire 210 mg/1.91 mL (110 mg/mL) pen injector 210 mg subcut Q4W doxazosin 4 mg tablet 6 mg PO QDAY atorvastatin 40 MG tablet 40 mg PO QHS Patient Comments: cholesterol omeprazole 20 MG capsule 20 mg PO DAILY Patient Comments: acid reflux pramipexole 1 mg tablet 3 mg PO QHS hydrocodone-acetaminophen 5-325 mg tablet 1 tab PO BID PRN (Reason: pain) doxazosin 2 mg tablet 2 mg PO QHS Linzess 72 mcg capsule 72 mcg PO DAILY furosemide 20 mg tablet 20 mg PO QAM mirabegron [Myrbetriq] 25 mg tablet extended release 24 hr 25 mg PO DAILY albuterol sulfate 90 mcg/actuation HFA aerosol inhaler 2 inh inhalation Q6H PRN (Reason: wheezing) carvedilol 25 mg tablet 25 mg PO BIDCM Qty: 180 3RF Referrals / Follow Up: Waqar Wright DO [Primary Care Provider] - Within 1 Week Disposition Disposition (needs filled in before D/C Order can be placed): Home, Self Care Charges/Coding Visit Charges Inpatient E&M: 09953 Disch Hosp >30min
== END 2024-05-12 17:15 | disposition home or self-care (01) | DRG 177 ==
LOC: ED 13:55 → MS3 14:54
PROVIDERS: Admitting Provider Internal Medicine; Emergency Provider Emergency Medicine; PCP Family Medicine; Visit Provider Student in an Organized Health Care Education/Training Program
DX: U07.1 COVID-19 (principal); G93.41 Metabolic encephalopathy; I13.0 Hypertensive heart and chronic kidney disease with heart failure and stage 1 through stage 4 chronic kidney disease, or unspecified chronic kidney disease; I50.30 Unspecified diastolic (congestive) heart failure; N39.0 Urinary tract infection, site not specified; J44.9 Chronic obstructive pulmonary disease, unspecified; N18.32 Chronic kidney disease, stage 3b; M06.9 Rheumatoid arthritis, unspecified; E03.9 Hypothyroidism, unspecified; G25.81 Restless legs syndrome; K21.9 Gastro-esophageal reflux disease without esophagitis; I25.10 Atherosclerotic heart disease of native coronary artery without angina pectoris; E78.00 Pure hypercholesterolemia, unspecified; G47.33 Obstructive sleep apnea (adult) (pediatric); I25.2 Old myocardial infarction; N40.1 Benign prostatic hyperplasia with lower urinary tract symptoms; Z95.5 Presence of coronary angioplasty implant and graft; Z79.82 Long term (current) use of aspirin; Z79.51 Long term (current) use of inhaled steroids; Z79.899 Other long term (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; Z86.711 Personal history of pulmonary embolism
CPT/HCPCS: 36415; 70450; 71046; 73502; 80048; 81001; 82550; 82803; 83880; 84075; 84450; 84460; 85025; 87086; 87088; 87631; 93005; 94640; 94668; 97110; 97162; 97166; 97535; 99284; 99285; A4216; J0248